=== PATIENT | female | born 1955 | race Caucasian/White ===

== ENCOUNTER 2021-03-04 19:58 | Inpatient (IN) ==
[2021-03-04] MEDS ORDERED: LEVALBUTEROL 1.25MG/0.5ML NEB NEB STA ×2 (20:37→23:22)
[2021-03-04] MEDS ORDERED: methylPREDNISolone 125 MG/2 ML VIAL IV STA (20:37)
[2021-03-04] MEDS: SODIUM CHLORIDE 0.9% 1000ML 1,000 ML IV SCH (21:22)
[2021-03-04 21:43] LABS: Basophils # (auto) 0.03 K/uL (0-0.2); Basophils % (auto) 0.4 %; Hematocrit (blood only) 44.4 % (37-47); Hemoglobin 15.1 g/dL (12.0-16.0); Immature Granulocytes # (auto) 0.02 K/uL (0.00-0.02); Immature Granulocytes % (auto) 0.3 %; Lymphocytes # (auto) 1.49 K/uL (1.2-3.4); Lymphocytes % (auto) 21.4 %; Mean Corpuscular Hemoglobin 30.9 pg (25-34); Mean Corpuscular Volume 90.8 fL (80-100); Monocytes # (auto) 0.44 K/uL (0.11-0.59); Monocytes % (auto) 6.3 %; Neutrophils # (auto) 4.98 K/uL (1.4-6.5); Neutrophils % (auto) 71.6 %; Platelet Count 457 K/uL (130-400); RDW Coefficient of Variation 13.5 % (11.5-14.5); RDW Standard Deviation 44.3 fL (36.4-46.3); Red Blood Count 4.89 M/uL (4.2-5.4); White Blood Count 6.96 K/uL (4.8-10.8)
[2021-03-04 21:56] LABS: Partial Thromboplastin Ratio 0.8; Partial Thromboplastin Time 22.3 Seconds (21.0-31.0)
[2021-03-04 22:02] LABS: Alanine Aminotransferase 27 U/L (12-78); Albumin Level 2.7 gm/dl (3.4-5.0); Aspartate Aminotransferase 50 U/L (15-37); BUN Creatinine Ratio 14.6 (10-20); Blood Urea Nitrogen 9 mg/dl (7-18); Calcium 8.6 mg/dl (8.5-10.1); Carbon Dioxide 29 mmol/L (21-32); Chloride 101 mmol/L (98-107); Creatinine Clr Calc Pharmacy 91.8 ml/min; Est GFR (African American) 110.3 ml/min; Est GFR (Non-African American) 95.1 ml/min; Glucose 221 mg/dl (70-99); Magnesium 2.4 mg/dl (1.8-2.4); Potassium 3.2 mmol/L (3.5-5.1); Sodium 139 mmol/L (136-145)
[2021-03-04 22:06] LABS: Albumin Globulin Ratio 0.6 (0.9-2); Alkaline Phosphatase 136 U/L (45-117); Bilirubin,Total 1.3 mg/dl (0.2-1); Globulin 4.6 gm/dl (2.5-4.0); Total Protein 7.3 gm/dl (6.4-8.2); Troponin I < 0.015 ng/ml (0-0.045)
--- NOTE | 2021-03-04 22:14 | Emergency Department Note ---
History of Present Illness General Chief complaint: Illness Stated complaint: SOB,N/V Time Seen by Provider: 03/04/21 20:28 History of Present Illness Provider complaint: Shortness of breath nausea vomiting diarrhea cough fever Onset (ago): week(s) 1 Associated symptoms: + cough, + fever/chills, + headaches, + malaise, + nausea/vomiting and + shortness of breath 65-year-old female with history of asthma and COPD presents to the emergency department with cough, shortness of breath, nausea, vomiting, diarrhea, and fever patient states that symptoms been going on for 1 week. Patient states she is not vaccinated against Covid. Patient states she went to an outside emergency department and was told that she did not have Covid and that her lungs were clear. Home Medications Medication Instructions Recorded Confirmed Type fluticasone propionate 50 1 spray INTRANASAL UD 03/04/21 03/04/21 History mcg/actuation nasal spray,suspension Allergies Allergy/AdvReac Type Severity Reaction Status Date / Time No Known Allergies Allergy Unknown Verified 12/05/02 15:09 albuterol AdvReac Mild MAKES HER Verified 07/25/09 03:32 HEART RACE Past Med/Surg History Medical History (Updated 03/04/21 @ 23:27 by Mac Shore) Asthma CHF (congestive heart failure) Diabetes GERD (gastroesophageal reflux disease) No pertinent family history Surgical History (Updated 03/04/21 @ 22:08 by Mac Shore) No pertinent past surgical history Social History Smoking Status: Never smoker Preferred Language: Kazakh Feels Safe at Home: Yes Review of Systems A total of 10 systems reviewed and were otherwise negative Physical Exam Vital Signs Vital Signs - 24 hr 03/04/21 20:19 03/04/21 20:32 03/04/21 20:39 Temperature 36.6 C Temperature Source Temporal Artery Scan Pulse Rate 93 H 91 H Pulse Rate [Right Apical] Pulse Rate from SpO2 Sensor Pulse Rhythm Respiratory Rate 24 18 Respiratory Effort / Characteristics Non-Labored Spontaneous Blood Pressure 154/82 H 167/102 H Blood Pressure Mean 106 123 Blood Pressure Position Sitting Pulse Oximetry 83 L 94 95 Oxygen Delivery Method Room Air Nasal Cannula Nasal Cannula Oxygen Flow Rate 5 3 Sepsis Recent Fever Within 48 Hours Yes Sepsis New/Unexplained Change in Mental Status N/A Sepsis Action Taken by Nursing No Action Required 03/04/21 20:40 03/04/21 21:00 03/04/21 21:07 Temperature Temperature Source Pulse Rate 84 82 Pulse Rate [Right Apical] Pulse Rate from SpO2 Sensor 83 Pulse Rhythm Regular Respiratory Rate 22 22 22 Respiratory Effort / Characteristics Non-Labored Spontaneous Blood Pressure 161/104 H Blood Pressure Mean 123 Blood Pressure Position Pulse Oximetry 95 96 97 Oxygen Delivery Method Nasal Cannula Nasal Cannula Nasal Cannula Oxygen Flow Rate 3 3 2 Sepsis Recent Fever Within 48 Hours Sepsis New/Unexplained Change in Mental Status Sepsis Action Taken by Nursing 03/04/21 21:30 03/04/21 21:47 03/04/21 22:00 Temperature Temperature Source Pulse Rate 82 94 H Pulse Rate [Right Apical] 78 Pulse Rate from SpO2 Sensor 82 94 H Pulse Rhythm Respiratory Rate 16 18 22 Respiratory Effort / Characteristics Non-Labored Spontaneous Spontaneous Non-Labored Spontaneous Blood Pressure 151/101 H 144/109 H Blood Pressure Mean 117 120 Blood Pressure Position Pulse Oximetry 96 96 92 Oxygen Delivery Method Nasal Cannula Nasal Cannula Nasal Cannula Oxygen Flow Rate 2 2 2 Sepsis Recent Fever Within 48 Hours Sepsis New/Unexplained Change in Mental Status Sepsis Action Taken by Nursing 03/04/21 22:30 03/04/21 22:31 Temperature Temperature Source Pulse Rate 96 H Pulse Rate [Right Apical] Pulse Rate from SpO2 Sensor 96 H Pulse Rhythm Respiratory Rate 22 17 Respiratory Effort / Characteristics Non-Labored Spontaneous Blood Pressure 179/92 H Blood Pressure Mean 121 Blood Pressure Position Pulse Oximetry 95 94 Oxygen Delivery Method Nasal Cannula Nasal Cannula Oxygen Flow Rate 2 2 Sepsis Recent Fever Within 48 Hours Sepsis New/Unexplained Change in Mental Status Sepsis Action Taken by Nursing Physical Exam GENERAL: She is oriented to person, place, and time. She appears well-developed and well-nourished. She does not appear distressed. HENT: Exam performed. -Head: Normocephalic and atraumatic. -Right Ear: External ear normal. No mastoid tenderness. -Left Ear: External ear normal. No mastoid tenderness. -Mouth/Throat: The oropharynx is clear and moist. No trismus in the jaw. No dental abscesses or uvula swelling. No oropharyngeal exudate or tonsillar abscesses. EYES: Conjunctivae and EOM are normal. Pupils are equal, round, and reactive to light. Right eye exhibits no discharge. Left eye exhibits no discharge. No scleral icterus. NECK: Normal range of motion. Neck supple. No JVD present. No spinous process tenderness present. No carotid bruit present. No rigidity. No tracheal deviation and normal range of motion present. No Brudzinski's sign and no Kernig's sign noted. CV: Normal rate, regular rhythm, normal heart sounds and intact distal pulses. There is no peripheral edema. Palpable radial pulses bue. PULM/CHEST: Rhonchi and wheezing bilaterally. -Chest Wall: She exhibits no tenderness. ABD: The abdomen is soft. Bowel sounds are normal. She has no distension. No mass is present. There is no tenderness. There is no rebound, no guarding, no Muller's sign and no tenderness at McBurney's point. Rovsig negative MUSC/SKEL: Normal range of motion. There is no peripheral edema, tenderness or deformity. LYMPH: No cervical adenopathy. NEURO: She is alert and oriented to person, place, and time. She has normal strength. No cranial nerve deficit or sensory deficit. Coordination and gait normal. GCS eye subscore is 4. GCS verbal subscore is 5. GCS motor subscore is 6. Cerebellar tests wnl. SKIN: Skin is warm and dry. She is not diaphoretic. PSYCH: She has a normal mood and affect. Behavior is normal. Judgment and thought content normal. Course Course 2027: The patient was evaluated in room A9. A complete history and physical exam was performed Cardiac monitoring: An order was placed for continuous cardiac monitoring. The monitor shows a rate of 80 with sinus rhythm Patient found to be hypoxic on room air. Supplemental oxygen via nasal cannula. Patient's oxygen saturation improved with supplemental oxygen via nasal cannula. Solu-Medrol 125 mg her for the patient giving her hypoxia and wheezing. 2325: Vital signs stable on supplemental oxygen via nasal cannula. Labs show a potassium of 3.2, will be replaced in the emergency department. Patient is Covid positive. CTA of the chest shows Covid pneumonia but no PE. Given the pa fortunato's hypoxia and Covid pneumonia the patient will be [facility] Hospitalist team Dr. Lind notified. Administered Medications Sodium Chloride (Nss 1000ml) 1,000 mls @ 125 mls/hr IV .Q8H NELL Stop: 04/03/21 20:44 Last Admin: 03/04/21 21:22 Dose: 125 mls/hr Documented by: [id number] Discontinued Medications Ioversol (Optiray 320 125ml) 117 ml IV ONCE ONE Stop: 03/04/21 22:32 Last Admin: 03/04/21 22:31 Dose: 117 ml Documented by: [id number] Levalbuterol HCl (Levalbuterol 1.25mg/0.5ml Neb) 1.25 mg NEB NOW STA Stop: 03/04/21 20:38 Last Admin: 03/04/21 21:43 Dose: 1.25 mg Documented by: [id number] Methylprednisolone (Methylprednisolone 125 Mg/2 Ml Vial) 125 mg IV NOW STA Stop: 03/04/21 20:38 Last Admin: 03/04/21 21:22 Dose: 125 mg Documented by: [id number] Critical Care Time Critical Care Time: Yes Total Critical Care Time: 56 I have personally spent greater than 56 minutes of critical care time in the direct management of this patient. This includes bedside care, interpretation of diagnostic studies, and testing, discussion with consultants, patient, and family members, and other required patient management activities. This 56 minutes is in excess of all separately billable procedures. Medical Decision Making Laboratory Data Result diagrams: 03/04/21 21:17 03/04/21 21:17 Lab Results 03/04/21 03/04/21 03/04/21 Range/Units 20:47 20:47 21:17 WBC 6.96 (4.8-10.8) K/uL RBC 4.89 (4.2-5.4) M/uL Hgb 15.1 (12.0-16.0) g/dL Hct 44.4 (37-47) % MCV 90.8 (80-100) fL MCH 30.9 (25-34) pg MCHC 34.0 (32-36) g/dL RDW Std Deviation 44.3 (36.4-46.3) fL RDW Coeff of Ralf 13.5 (11.5-14.5) % Plt Count 457 H (130-400) K/uL MPV 10.0 (7.4-10.4) fL Immature Gran % (Auto) 0.3 % Neut % (Auto) 71.6 % Lymph % (Auto) 21.4 % [place] % (Auto) 6.3 % Eos % (Auto) 0.0 % Baso % (Auto) 0.4 % Neut # (Auto) 4.98 (1.4-6.5) K/uL Lymph # (Auto) 1.49 (1.2-3.4) K/uL [place] # (Auto) 0.44 (0.11-0.59) K/uL Eos # (Auto) 0.00 (0-0.5) K/uL Baso # (Auto) 0.03 (0-0.2) K/uL Immature Gran # (Auto) 0.02 (0.00-0.02) K/uL PT (9.0-12.0) Seconds INR (0.9-1.1) APTT (21.0-31.0) Seconds PTT Ratio VBG pH (7.36-7.41) VBG pCO2 (38-50) mmHg VBG pO2 mmHg VBG HCO3 mmol/L VBG O2 Saturation % VBG Base Excess mEq/L Barometric Pressure mm/Hg Sodium (136-145) mmol/L Potassium (3.5-5.1) mmol/L Chloride (98-107) mmol/L Carbon Dioxide (21-32) mmol/L Anion Gap (3-11) BUN (7-18) mg/dl Creatinine (0.6-1.2) mg/dl Est Cr Clr Drug Dosing ml/min Est GFR ( Amer) ml/min Est GFR (Non-Af Amer) ml/min BUN/Creatinine Ratio (10-20) Glucose (70-99) mg/dl Lactate (0.4-2.0) mmol/L Calcium (8.5-10.1) mg/dl Magnesium (1.8-2.4) mg/dl Total Bilirubin (0.2-1) mg/dl AST (15-37) U/L ALT (12-78) U/L Alkaline Phosphatase (45-117) U/L Troponin I (0-0.045) ng/ml Total Protein (6.4-8.2) gm/dl Albumin (3.4-5.0) gm/dl Globulin (2.5-4.0) gm/dl Albumin/Globulin Ratio (0.9-2) Procalcitonin (0-0.5) ng/ml COVID-19 Eval Order Covid19 at [facility] SARS-CoV-2 (PCR) POSITIVE A* (Negative) 03/04/21 03/04/21 03/04/21 Range/Units 21:17 21:17 21:17 WBC (4.8-10.8) K/uL RBC (4.2-5.4) M/uL Hgb (12.0-16.0) g/dL Hct (37-47) % MCV (80-100) fL MCH (25-34) pg MCHC (32-36) g/dL RDW Std Deviation (36.4-46.3) fL RDW Coeff of Ralf (11.5-14.5) % Plt Count (130-400) K/uL MPV (7.4-10.4) fL Immature Gran % (Auto) % Neut % (Auto) % Lymph % (Auto) % [place] % (Auto) % Eos % (Auto) % Baso % (Auto) % Neut # (Auto) (1.4-6.5) K/uL Lymph # (Auto) (1.2-3.4) K/uL [place] # (Auto) (0.11-0.59) K/uL Eos # (Auto) (0-0.5) K/uL Baso # (Auto) (0-0.2) K/uL Immature Gran # (Auto) (0.00-0.02) K/uL PT 10.0 (9.0-12.0) Seconds INR 1.0 (0.9-1.1) APTT 22.3 (21.0-31.0) Seconds PTT Ratio 0.8 VBG pH (7.36-7.41) VBG pCO2 (38-50) mmHg VBG pO2 mmHg VBG HCO3 mmol/L VBG O2 Saturation % VBG Base Excess mEq/L Barometric Pressure mm/Hg Sodium 139 (136-145) mmol/L Potassium 3.2 L (3.5-5.1) mmol/L Chloride 101 (98-107) mmol/L Carbon Dioxide 29 (21-32) mmol/L Anion Gap 9.0 (3-11) BUN 9 (7-18) mg/dl Creatinine 0.61 (0.6-1.2) mg/dl Est Cr Clr Drug Dosing 91.8 ml/min Est GFR ( Amer) 110.3 ml/min Est GFR (Non-Af Amer) 95.1 ml/min BUN/Creatinine Ratio 14.6 (10-20) Glucose 221 H (70-99) mg/dl Lactate 1.4 (0.4-2.0) mmol/L Calcium 8.6 (8.5-10.1) mg/dl Magnesium 2.4 (1.8-2.4) mg/dl Total Bilirubin 1.3 H (0.2-1) mg/dl AST 50 H (15-37) U/L ALT 27 (12-78) U/L Alkaline Phosphatase 136 H (45-117) U/L Troponin I < 0.015 (0-0.045) ng/ml Total Protein 7.3 (6.4-8.2) gm/dl Albumin 2.7 L (3.4-5.0) gm/dl Globulin 4.6 H (2.5-4.0) gm/dl Albumin/Globulin Ratio 0.6 L (0.9-2) Procalcitonin (0-0.5) ng/ml COVID-19 Eval Order SARS-CoV-2 (PCR) (Negative) 03/04/21 03/04/21 Range/Units 21:17 23:03 WBC (4.8-10.8) K/uL RBC (4.2-5.4) M/uL Hgb (12.0-16.0) g/dL Hct (37-47) % MCV (80-100) fL MCH (25-34) pg MCHC (32-36) g/dL RDW Std Deviation (36.4-46.3) fL RDW Coeff of Ralf (11.5-14.5) % Plt Count (130-400) K/uL MPV (7.4-10.4) fL Immature Gran % (Auto) % Neut % (Auto) % Lymph % (Auto) % [place] % (Auto) % Eos % (Auto) % Baso % (Auto) % Neut # (Auto) (1.4-6.5) K/uL Lymph # (Auto) (1.2-3.4) K/uL [place] # (Auto) (0.11-0.59) K/uL Eos # (Auto) (0-0.5) K/uL Baso # (Auto) (0-0.2) K/uL Immature Gran # (Auto) (0.00-0.02) K/uL PT (9.0-12.0) Seconds INR (0.9-1.1) APTT (21.0-31.0) Seconds PTT Ratio VBG pH 7.36 (7.36-7.41) VBG pCO2 45 (38-50) mmHg VBG pO2 35 mmHg VBG HCO3 25 mmol/L VBG O2 Saturation 69.6 % VBG Base Excess -0.9 mEq/L Barometric Pressure 734.2 mm/Hg Sodium (136-145) mmol/L Potassium (3.5-5.1) mmol/L Chloride (98-107) mmol/L Carbon Dioxide (21-32) mmol/L Anion Gap (3-11) BUN (7-18) mg/dl Creatinine (0.6-1.2) mg/dl Est Cr Clr Drug Dosing ml/min Est GFR ( Amer) ml/min Est GFR (Non-Af Amer) ml/min BUN/Creatinine Ratio (10-20) Glucose (70-99) mg/dl Lactate (0.4-2.0) mmol/L Calcium (8.5-10.1) mg/dl Magnesium (1.8-2.4) mg/dl Total Bilirubin (0.2-1) mg/dl AST (15-37) U/L ALT (12-78) U/L Alkaline Phosphatase (45-117) U/L Troponin I (0-0.045) ng/ml Total Protein (6.4-8.2) gm/dl Albumin (3.4-5.0) gm/dl Globulin (2.5-4.0) gm/dl Albumin/Globulin Ratio (0.9-2) Procalcitonin 0.11 (0-0.5) ng/ml COVID-19 Eval Order SARS-CoV-2 (PCR) (Negative) Imaging Data Radiologist's Impression: Preliminary Findings Only See Final Report For Complete Findings CTA CHEST: No pulmonary embolus. No aortic aneurysm or dissection. Bilateral airspace opacities are most consistent with atypical infection. Heart size is within normal limits. No pathologically enlarged lymph nodes. No fracture. Incidentally noted fatty infiltration of the liver. Radiologist: Malika Quarles MD Study ready at 22:57 and initial results transmitted at 23:19 ECG Data Indication: + SOB/dyspnea Rate (beats per minute): 83 Rhythm: + normal sinus ECG Intervals/blocks: + Normal QRS, + Normal SD and + Normal QT-c ECG ST segments: + Normal ST segments [facility] Narrative 2027: The patient was evaluated in room A9. A complete history and physical exam was performed Cardiac monitoring: An order was placed for continuous cardiac monitoring. The monitor shows a rate of 80 with sinus rhythm Patient found to be hypoxic on room air. Supplemental oxygen via nasal cannula. Patient's oxygen saturation improved with supplemental oxygen via nasal cannula. Solu-Medrol 125 mg her for the patient giving her hypoxia and wheezing. 2324: Vital signs stable on supplemental oxygen via nasal cannula. Labs show a potassium of 3.2, will be replaced in the emergency department. Patient is Covid positive. CTA of the chest shows Covid pneumonia but no PE. Given the patient's hypoxia and Covid pneumonia the patient will be admitted to the [facility] hospitalist team Dr. Lind notified. Impression & Plan Pneumonia due to 2019 novel coronavirus Discharge Plan Visit Data Chief Complaint: Illness Stated Complaint: SOB,N/V ED Provider: Mac Shore Discharge Problem: Pneumonia due to 2019 novel coronavirus Patient Disposition: Admitted As Inpatient Forms Stand Alone Forms: My [facility] Prescriptions Prescriptions: No Action fluticasone propionate 50 mcg/actuation spray,suspension 1 spray INTRANASAL UD RF: 0 Referrals Referrals: Demetrio Bravo [Primary Care Provider] -
[2021-03-04] MEDS ORDERED: OPTIRAY 320 125ml IV ONE (22:31)
[2021-03-04 23:15] LABS: Base Excess VBG -0.9 mEq/L; Oxygen Saturation VBG 69.6 %; pH VBG 7.36 (7.36-7.41)
[2021-03-04] MEDS ORDERED: POTASSIUM CHLORIDE 10 MEQ TABCR PO STA (23:26)
[2021-03-05 00:33] LABS: Appearance Urine Turbid (Clear); Bacteria Urine Automated Negative (Negative); Blood Urine Negative (Negative); Color Urine Dark Yellow; Epithelial Cell Urine Auto >30 /lpf (0-5); Glucose Urine UA 3+ (Negative); Ketones Urine 1+ (Negative); Leukocyte Esterase Urine Negative (Negative); Nitrite Urine Negative (Negative); Protein Urine 2+ (Negative); RBC Urine Automated 0-4 /hpf (0-4); Specific Gravity Urine > 1.045 (1.000-1.030); Urobilinogen Urine Negative (Negative); pH Urine 6.5 (4.5-7.5)
[2021-03-05 00:38] LABS: Bilirubin Urine 1+ (Negative)
[2021-03-05 01:13] LABS: Cast Urine Automated 0 /lpf (0-5)
[2021-03-05] MEDS ORDERED: KETOROLAC TROMETHAMINE 15 MG/ML VIAL IV ONE (02:47)
[2021-03-05] MEDS ORDERED: REMDESIVIR 200 MG in SODIUM CHLORIDE 0.9% 210 ML IV STA (03:30)
[2021-03-05] MEDS: SODIUM CHLORIDE 0.9% 1000ML 1,000 ML IV SCH (04:57)
[2021-03-05] MEDS ORDERED: NITROGLYCERIN SL 0.4 MG/TAB TAB SL PRN (07:27)
[2021-03-05] MEDS ORDERED: ONDANSETRON INJ 2 MG/ML 2 ML VIAL IV PRN (07:27)
[2021-03-05] MEDS ORDERED: SODIUM CHLORIDE 0.9% 1000ML 1,000 ML IV SCH (07:27)
[2021-03-05] MEDS ORDERED: XOPENEX/ATROVENT 1.25mg/0.5MG NEB COMBO NEB PRN (07:27)
--- NOTE | 2021-03-05 07:57 | CT Scan Report ---
CT angio chest PE protocol CT DOSE: 515.08 mGycm HISTORY: 65 years-old Female with ro PE. Acute chest pain with shortness of breath. TECHNIQUE: Multiple CTA images of the chest were obtained after the intravenous administration of 117 ml Optiray. Coronal and sagittal MIPS were obtained from the axial data set and were submitted for review. All measurements were obtained according to NASCET criteria. A dose lowering technique was u tilized adhering to the principles of ALARA. COMPARISON: Chest radiograph 03/04/2021, chest CT 02/28/2008 FINDINGS: CTA: The heart is mildly enlarged. Mediastinal lipomatosis. No pericardial effusion. Atherosclerosis of th e aorta without aneurysm or dissection. Patency of the imaged great vessels. Descending thoracic aort ic tortuosity. No pulmonary emboli identified. Right IJ [id number] catheter distal tip terminates within the mid SVC. CT CHEST: Unremarkable thyroid. No pathologically enlarged lymph nodes. No pneumothorax or pleural effusion. Bi lateral multilobar and multi segmental distribution of subpleural predominant groundglass densities w ith mild intermixed linear consolidation. The previously noted solid nodule of the left lower lobe se en on the 2007 study is not identified and may be obscured by consolidation. The central airways are patent. No pneumoperitoneum. Tiny hiatal hernia. Hepatic steatosis. Unremarkable soft tissues. There is no ac michael fracture. Degenerative changes of the shoulders and spine. A spinal stimulator device is present with partially imaged lead overlying the central canal of the lower thoracic spine posteriorly. IMPRESSION: 1. Cardiomegaly without pulmonary emboli. 2. Bilateral subpleural predominant groundglass densities are suggestive of viral pneumonia. 3. Hepatic steatosis. 4. Tiny hiatal hernia. ACT 112: Negative or not required by law. The above report was generated using voice recognition software. It may contain grammatical, syntax o r spelling errors. Electronically signed by: Jessee Llamas M.D. 03/05/2021 7:56 AM
--- NOTE | 2021-03-05 08:19 | XRay Report ---
XR chest 1V portable INDICATION: MN ^SEPSIS . TECHNIQUE: Single frontal radiograph of the chest was obtained. Comparison: Comparison is made to chest one view 10/03/2010 FINDINGS: Lines and tubes are stable. Interval development of bilateral lower lobe predominant opacities. Cardi ac mediastinal silhouette is stable. Possible small bilateral pleural effusions. No evidence of pneum othorax. IMPRESSION: Bilateral airspace opacities which may represent atelectasis, pneumonia, and/or aspiration. Possible bilateral pleural effusions. ACT 112: Negative or not required by law. Electronically signed by: Luigi Slaughter M.D. 03/05/2021 8:17 AM
[2021-03-05] MEDS ORDERED: GLUCOSE 40% GEL 15 GM TUBE PO PRN (08:45)
[2021-03-05] MEDS ORDERED: GLUCAGON FOR INJ 1 MG VIAL IM PRN (08:45)
[2021-03-05] MEDS ORDERED: GLUCOSE 10 TABS/TUBE PO PRN (08:45)
[2021-03-05] MEDS ORDERED: DEXTROSE 50% 50 ML SYRINGE IV PRN (08:45)
[2021-03-05] MEDS ORDERED: BUDESONIDE 90 MCG INH INH SCH (09:00)
--- NOTE | 2021-03-05 09:38 | History and Physical Report ---
DATE OF ADMISSION: 03/05/2021. CHIEF COMPLAINT: Shortness of breath. HISTORY OF PRESENT ILLNESS: This is a 65-year-old female with past medical history significant for diabetes mellitus, presents with cough and shortness of breath. The patient says she is not feeling well since last 2 weeks. Since 2 weeks ago, she was feeling weakness and tired and about 1 week ago started having cough, on and off fevers, body aches, poor appetite and since last couple of days, she has been short of breath, which prompted her to come to the ER and found to have COVID positive and multifocal pneumonia. She was saturating 88% on room air, with oxygen she is saturating okay, having lot of cough, having severe headaches. No blurred visions, no earache, no runny nose, no sore throat, no difficulty swallowing. Denies any chest pain. Intially, had a lot of diarrhea that is getting better. Abdominal pain is also getting better. No hematuria, no swelling in the legs. ALLERGIES: No known drug allergies. PAST MEDICAL HISTORY: As mentioned above. PAST SURGICAL HISTORY: Colonoscopy, upper endoscopy with biopsy. MEDICATIONS: On insulin. FAMILY HISTORY: No family history on file. SOCIAL HISTORY: , quit smoking in 2003. No alcohol. REVIEW OF SYSTEMS: As per HPI. Rest of review of systems is negative. PHYSICAL EXAMINATION: GENERAL: The patient is of moderate build, not in acute distress. VITAL SIGNS: Temperature 36.6, pulse 63, respiratory rate 18, blood pressure 164/93, oxygen 94% on 3 liters. HEENT: Pupils equal, round and reactive to light. Oral mucosa moist. NECK: No JVD or neck masses. CARDIOVASCULAR: S1 and S2 heard. Regular rate and rhythm. No murmur, no gallop. RESPIRATORY SYSTEM: Normal AP diameter. No accessory muscle use. Mild bibasilar crackles. No wheezing. ABDOMEN: Soft, bowel sounds present, nontender, no distention. CENTRAL NERVOUS SYSTEM: Cranial nerves II-XII grossly intact, nonfocal. EXTREMITIES: No edema, no erythema. LABORATORY DATA: WBC 6.9, hemoglobin 15.1, hematocrit 44.4, platelets 457. PT 10, INR 1, APTT 22.3. Venous blood gas, pH of 7.36, pCO2 of 45, pO2 of 35, bicarbonate 25. Sodium 139, potassium 3.2, chloride 101, bicarbonate 29, BUN 9, creatinine 0.6, serum glucose 221. Lactate 1.4, calcium 8.6, magnesium 2.4, total bilirubin 1.3, AST 15, ALT 27, alkaline phosphatase 136. Procalcitonin 0.1. Urinalysis, +3 glucose. SARS-CoV-2 PCR positive. IMAGING DATA: Chest x-ray, bilateral opacities possible viral pneumonia. CT of the chest, no PE, bilateral subpleural predominant ground glass opacities suggestive of viral pneumonia. EKG: Normal sinus rhythm, rate of 83, nonspecific T-wave abnormalities. No acute ST changes seen. ASSESSMENT AND PLAN: 1. This 65-year-old female presents with COVID pneumonia, hypoxia requiring oxygen, meets criteria for remdesivir, steroids. Follow the remdesvir labs. Closely monitor med tele. 2. Diabetes. Continue insulin sliding scale and lantus. Monitor blood sugar and adjust insulin regimen 3. Deep venous thrombosis prophylaxis. Lovenox. DISPOSITION: Admit to med tele. Expect to discharge home and follow with family doctor. Level 1 full code. Job ID: [id number] [facility]
[2021-03-05 09:40] LABS: Basophils # (auto) 0.02 K/uL (0-0.2); Basophils % (auto) 0.5 %; Hematocrit (blood only) 42.3 % (37-47); Hemoglobin 14.3 g/dL (12.0-16.0); Immature Granulocytes # (auto) 0.02 K/uL (0.00-0.02); Immature Granulocytes % (auto) 0.5 %; Lymphocytes # (auto) 0.98 K/uL (1.2-3.4); Lymphocytes % (auto) 23.5 %; Mean Corpuscular Hemoglobin 30.6 pg (25-34); Mean Corpuscular Hgb Conc 33.8 g/dL (32-36); Mean Corpuscular Volume 90.6 fL (80-100); Mean Platelet Volume 9.6 fL (7.4-10.4); Monocytes # (auto) 0.11 K/uL (0.11-0.59); Monocytes % (auto) 2.6 %; Neutrophils # (auto) 3.04 K/uL (1.4-6.5); Neutrophils % (auto) 72.9 %; Platelet Count 427 K/uL (130-400); RDW Coefficient of Variation 13.5 % (11.5-14.5); RDW Standard Deviation 44.3 fL (36.4-46.3); Red Blood Count 4.67 M/uL (4.2-5.4); White Blood Count 4.17 K/uL (4.8-10.8)
[2021-03-05 10:00] LABS: BUN Creatinine Ratio 12.5 (10-20); Calcium 8.1 mg/dl (8.5-10.1); Creatinine Clr Calc Pharmacy 93.3 ml/min; Est GFR (African American) 110.9 ml/min; Est GFR (Non-African American) 95.7 ml/min; Magnesium 2.3 mg/dl (1.8-2.4); Potassium 3.6 mmol/L (3.5-5.1)
[2021-03-05 12:13] LABS: Estimated Average Glucose 309 mg/dl; Hemoglobin A1C 12.4 % (4.5-5.6)
[2021-03-05] MEDS: INSULIN GLARGINE SOLOSTAR 100 UNITS/ML 3 ML PEN SC SCH (12:30)
[2021-03-05] MEDS: INSULIN ASPART 100 UNITS/ML 3 ML PEN SC SCH ×4 (12:45→21:40)
[2021-03-05] MEDS: FLUTICASONE FUROATE 100MCG 14 PUFFS/INHALER INH SCH (12:48)
[2021-03-05] MEDS: FLUTICASONE PROPIONATE NA SPR 16 GM BTL SCH (12:49)
[2021-03-05] MEDS: ENOXAPARIN INJ 40 MG/0.4 ML SYR SQ SCH ×2 (12:49→22:55)
[2021-03-05] MEDS: IPRATROPIUM BROMIDE NEB SOLN 0.02% 2.5 ML VIAL NEB PRN (14:29)
[2021-03-05] MEDS: LEVALBUTEROL 1.25MG/0.5ML NEB NEB PRN (14:29)
[2021-03-05] MEDS ORDERED: ACETAMINOPHEN 325 MG TAB PO PRN (15:13)
[2021-03-05] MEDS ORDERED: BENZONATATE 100 MG CAPSULE PO ONE (15:15)
[2021-03-05] MEDS: ALBUTEROL HFA 8 GM INHALER INH PRN ×2 (20:25→23:17)
[2021-03-05] MEDS: ACETAMINOPHEN 325 MG TAB PO PRN (22:07)
[2021-03-05] MEDS: BENZONATATE 100 MG CAPSULE PO SCH (22:07)
[2021-03-05] MEDS: guaiFENesin 600 MG TABCR PO SCH (22:56)
[2021-03-05] MEDS: dexAMETHasone 6 MG in SYRINGE 0 ML IV SCH (22:56)
--- NOTE | 2021-03-06 06:05 | Electrocardiogram Report ---
Test Reason : Blood Pressure : / mmHG Vent. Rate : 083 BPM Atrial Rate : 083 BPM P-R Int : 138 ms QRS Dur : 080 ms QT Int : 380 ms P-R-T Axes : 030 -11 -03 degrees QTc Int : 446 ms Normal sinus rhythm Nonspecific T wave abnormality When compared with ECG of 14-OCT-2010 11:28, Nonspecific T wave abnormality now evident in Anterior leads Confirmed by Osei Rasmussen ([id number]) on 03/06/2021 6:05:33 AM Referred By: REFERRED SELF Confirmed By:Osei Rasmussen
[2021-03-06 07:51] LABS: Albumin Level 2.3 gm/dl (3.4-5.0); Est GFR (African American) 112.7 ml/min; Est GFR (Non-African American) 97.3 ml/min
[2021-03-06 07:54] LABS: Bilirubin Direct 0.2 mg/dl (0-0.2); Bilirubin,Total 0.9 mg/dl (0.2-1); Total Protein 6.5 gm/dl (6.4-8.2)
[2021-03-06] MEDS: FLUTICASONE FUROATE 100MCG 14 PUFFS/INHALER INH SCH (08:39)
[2021-03-06] MEDS: dexAMETHasone 6 MG in SYRINGE 0 ML IV SCH (08:40)
[2021-03-06] MEDS: guaiFENesin 600 MG TABCR PO SCH (08:40)
[2021-03-06] MEDS: INSULIN ASPART 100 UNITS/ML 3 ML PEN SC SCH ×4 (09:19→21:07)
[2021-03-06] MEDS: FLUTICASONE PROPIONATE NA SPR 16 GM BTL SCH (09:20)
[2021-03-06] MEDS: ENOXAPARIN INJ 40 MG/0.4 ML SYR SQ SCH ×2 (09:20→21:08)
[2021-03-06] MEDS: BENZONATATE 100 MG CAPSULE PO SCH ×3 (09:21→21:09)
[2021-03-06] MEDS: INSULIN GLARGINE SOLOSTAR 100 UNITS/ML 3 ML PEN SC SCH ×2 (09:40→23:10)
[2021-03-06] MEDS: SODIUM CHLORIDE 0.9% 10ML FLUSH IV SCH (11:58)
[2021-03-06] MEDS: REMDESIVIR 100 MG in SODIUM CHLORIDE 0.9% 230 ML IV SCH (11:58)
[2021-03-06] MEDS ORDERED: FUROSEMIDE 40 MG in SYRINGE 0 ML IV ONE (12:00)
[2021-03-06] MEDS: guaiFENesin/DEXTROM SYRUP 200MG/20MG 10ML UDC PO PRN ×3 (13:23→23:42)
--- NOTE | 2021-03-06 15:20 | Hospitalist Progress Note ---
Date of Service March 06, 2021 Assessment & Plan (1) Pneumonia due to 2019 novel coronavirus: Plan: 1 week history of cough body aches and shortness of breath Noted to have COVID-19 virus infection with pneumonia on 03/05/2021 Started on intravenous dexamethasone and remdesivir CRP is mildly elevated at 2.72 and sitting and is 1.1 Has been requiring about 4 to 5 L of nasal cannula oxygen to maintain saturation She was strongly advised to use flutter valve and spirometer Prone position as tolerated We will keep her on dry side and will administer 40 of Lasix intravenously today Monitor electrolytes and inflammatory markers (2) Asthma: Plan: Likely contributing the shortness of breath Continue home medications (3) Diabetes: Plan: Has been on SSI Lantus 10 units subcu daily (4) CHF (congestive heart failure): Plan: No signs of fluid overload (5) GERD (gastroesophageal reflux disease): Plan: Continue PPI DVT prophylaxis Subcu Lovenox CODE STATUS Full Admission and Anticipated Discharge Date Admission Date: March 05, 2021 Subjective 03/06/2021 The patient was seen and examined in medical telemetry unit She has been complaining of shortness of breath, cough, weakness and diarrhea She does not feel any better since admission Denies any fever and/or chills Review of Systems Review of Systems: All systems reviewed and are unremarkable except as noted below Respiratory: Shortness of breath at rest with cough Physical Exam Physical Exam: Lying in bed with moderate shortness of breath and cough at rest Constitutional: well developed, well nourished, + ill appearing and + obese Eyes: PERRL, conjunctivae normal, anicteric sclerae ENMT: external ear and nose normal, oropharynx normal Neck: trachea midline, no thyromegaly Respiratory: + respiratory distress (Moderate shortness of breath at rest), + uses accessory muscles and + cough Auscultation: + diminished lung sounds, + crackles (At the bases) and + wheezes Cardiovascular: Rate/Rhythm: regular rate; not tachycardic Heart Sounds: normal S1 and normal S2; no murmur Extremities: + edema (Trace to 1+ edema bilaterally) Gastrointestinal (Abdomen): Inspection/Auscultation: normal bowel sounds; abdomen not distended Percussion/Palpation: abdomen soft; abdomen nontender Musculoskeletal: No acute arthritis in any joint Neurologic: Alert, awake and oriented x3. No focal sensory and motor deficit appreciated Psychiatric: A+Ox3, euthymic affect Lymphatic: no cervical or axillary lymphadenopathy Results & Data Results & Data ([facility]) Vital Signs (Past 12 Hours) Vital Signs Temp Pulse Pulse Resp BP Pulse Ox 03/06/21 11:53 36.5 C 80 20 135/79 96 03/06/21 08:06 36.5 C 67 20 144/82 H 91 03/06/21 07:31 52 L 03/06/21 03:27 36.6 C 77 18 157/85 H 95 Laboratory Results [facility] 03/06/21 07:08 Creatinine 0.57 L Liver Function 03/06/21 Range/Units 07:08 Total Bilirubin 0.9 (0.2-1) mg/dl Direct Bilirubin 0.2 (0-0.2) mg/dl AST 37 (15-37) U/L ALT 26 (12-78) U/L Alkaline Phosphatase 126 H (45-117) U/L Albumin 2.3 L (3.4-5.0) gm/dl Medications Administered Current Inpatient Medications Acetaminophen (Acetaminophen 325 Mg Tab) 650 mg PO Q4H PRN PRN Reason: Pain or Fever Stop: 04/04/21 07:26 Last Admin: 03/05/21 22:07 Dose: 650 mg Documented by: Acetaminophen (Acetaminophen 325 Mg Tab) 650 mg PO Q8H PRN PRN Reason: Headache Stop: 04/04/21 15:12 Albuterol (Albuterol Hfa 8 Gm Inhaler) 2 puffs INH Q4H PRN PRN Reason: Shortness Of Breath Or Wheezing Stop: 04/04/21 07:26 Last Admin: 03/05/21 23:17 Dose: 2 puffs Documented by: Benzonatate (Benzonatate 100 Mg Capsule) 100 mg PO TID NELL Stop: 04/04/21 20:59 Last Admin: 03/06/21 13:23 Dose: 100 mg Documented by: Dextrose (Dextrose 50% 50 Ml Syringe) 25 - 50 ml IV UD PRN; Protocol PRN Reason: Hypoglycemia Protocol Stop: 04/04/21 08:44 Enoxaparin Sodium (Enoxaparin Inj 40 Mg/0.4 Ml Syr) 40 mg SQ Q12 NELL Stop: 04/04/21 08:59 Last Admin: 03/06/21 09:20 Dose: 40 mg Documented by: Fluticasone Furoate (Fluticasone Furoate 100mcg 14 Puffs/Inhaler) 1 puffs INH DAILY NELL Stop: 04/04/21 08:59 Last Admin: 03/06/21 08:39 Dose: 1 puffs Documented by: Fluticasone Propionate (Fluticasone Propionate Na Spr 16 Gm Btl) 1 sprays NA DAILY NELL Stop: 04/04/21 08:59 Last Admin: 03/06/21 09:20 Dose: 1 sprays Documented by: Glucagon (Glucagon For Inj 1 Mg Vial) 1 mg IM UD PRN; Protocol PRN Reason: Hypoglycemia Protocol Stop: 04/04/21 08:44 Glucose (Glucose 40% Gel 15 Gm Tube) 15 - 30 gm PO UD PRN; Protocol PRN Reason: Hypoglycemia Protocol Stop: 04/04/21 08:44 Glucose (Glucose 10 Tabs/Tube) 4 - 8 tabs PO UD PRN; Protocol PRN Reason: Hypoglycemia Protocol Stop: 04/04/21 08:44 Guaifenesin/Dextromethorphan (Guaifenesin/Dextrom Syrup 200mg/20mg 10ml Udc) 10 ml PO Q6H PRN PRN Reason: Cough Stop: 04/05/21 11:45 Last Admin: 03/06/21 13:23 Dose: 10 ml Documented by: Remdesivir 100 mg/ Sodium (Chloride) 250 mls @ 250 mls/hr IV Q24H NELL; Protocol Stop: 03/09/21 12:59 Last Infusion: 03/06/21 13:24 Dose: Infused Documented by: Dexamethasone 6 mg/ Syringe 1.5 mls @ 1 mls/min IV DAILY NELL Stop: 03/15/21 20:59 Last Admin: 03/06/21 08:40 Dose: 1 mls/min Documented by: Insulin Aspart (Insulin Aspart 100 Units/Ml 3 Ml Pen) 0 units SC ACHS NELL Stop: 04/04/21 07:29 Last Admin: 03/06/21 12:26 Dose: 12 units Documented by: Insulin Glargine (Insulin Glargine Solostar 100 Units/Ml 3 Ml Pen) 10 units SC DAILY NELL Stop: 04/06/21 08:59 Ipratropium [place] (Ipratropium [place] Neb Soln 0.02% 2.5 Ml Vial) 0.5 mg NEB Q4H PRN PRN Reason: Shortness Of Breath Or Wheezing Stop: 04/04/21 08:59 Last Admin: 03/05/21 14:29 Dose: 0.5 mg Documented by: Levalbuterol HCl (Levalbuterol 1.25mg/0.5ml Neb) 1.25 mg NEB Q4H PRN PRN Reason: Shortness Of Breath Or Wheezing Stop: 04/04/21 07:26 Last Admin: 03/05/21 14:29 Dose: 1.25 mg Documented by: Miscellaneous (Carbohydrates For Hypoglycemia ) 15 - 30 gm PO UD PRN PRN Reason: Hypoglycemia Treatment Stop: 04/04/21 08:44 Nitroglycerin (Nitroglycerin Sl 0.4 Mg/Tab Tab) 0.4 mg SL UD PRN PRN Reason: Chest Pain Stop: 04/04/21 07:26 Ondansetron HCl (Ondansetron Inj 2 Mg/Ml 2 Ml Vial) 4 mg IV Q6H PRN PRN Reason: Nausea Stop: 04/04/21 07:26 Sodium Chloride (Sodium Chloride 0.9% 10ml Flush) 30 ml IV Q24H NELL Stop: 03/09/21 12:01 Last Admin: 03/06/21 11:58 Dose: 30 ml Documented by:
[2021-03-06] MEDS ORDERED: INSULIN HUMAN REGULAR PER UNIT 5 UNITS in SYRINGE 4.95 ML IV STA (22:20)
[2021-03-07] MEDS: ALBUTEROL HFA 8 GM INHALER INH PRN (03:24)
[2021-03-07 06:17] LABS: Basophils # (auto) 0.01 K/uL (0-0.2); Basophils % (auto) 0.1 %; Hemoglobin 13.7 g/dL (12.0-16.0); Immature Granulocytes # (auto) 0.03 K/uL (0.00-0.02); Immature Granulocytes % (auto) 0.3 %; Lymphocytes # (auto) 1.49 K/uL (1.2-3.4); Lymphocytes % (auto) 15.6 %; Mean Corpuscular Hemoglobin 30.6 pg (25-34); Mean Corpuscular Hgb Conc 33.4 g/dL (32-36); Mean Corpuscular Volume 91.5 fL (80-100); Mean Platelet Volume 9.9 fL (7.4-10.4); Monocytes # (auto) 0.72 K/uL (0.11-0.59); Monocytes % (auto) 7.5 %; Neutrophils % (auto) 76.5 %; Platelet Count 595 K/uL (130-400); RDW Coefficient of Variation 13.2 % (11.5-14.5); RDW Standard Deviation 43.8 fL (36.4-46.3); Red Blood Count 4.48 M/uL (4.2-5.4); White Blood Count 9.55 K/uL (4.8-10.8)
[2021-03-07 07:07] LABS: Albumin Level 2.3 gm/dl (3.4-5.0); Calcium 8.4 mg/dl (8.5-10.1); Creatinine Clr Calc Pharmacy 113.7 ml/min; Est GFR (African American) 117.7 ml/min; Est GFR (Non-African American) 101.6 ml/min; Magnesium 1.9 mg/dl (1.8-2.4); Potassium 3.3 mmol/L (3.5-5.1)
[2021-03-07 07:09] LABS: Albumin Globulin Ratio 0.6 (0.9-2); Bilirubin,Total 0.8 mg/dl (0.2-1); C Reactive Protein 2.12 mg/dl (0-0.29); Globulin 3.9 gm/dl (2.5-4.0); Phosphorus 2.3 mg/dl (2.5-4.9); Total Protein 6.2 gm/dl (6.4-8.2)
[2021-03-07] MEDS ORDERED: POTASSIUM CHLORIDE CRTAB 20 MEQ TABCR PO STA ×2 (08:09→11:08)
[2021-03-07] MEDS ORDERED: FUROSEMIDE 40 MG in SYRINGE 0 ML IV ONE (08:45)
[2021-03-07] MEDS ORDERED: INSULIN GLARGINE SOLOSTAR 100 UNITS/ML 3 ML PEN SC SCH (09:00)
[2021-03-07] MEDS: INSULIN ASPART 100 UNITS/ML 3 ML PEN SC SCH ×4 (09:30→20:45)
[2021-03-07] MEDS: INSULIN GLARGINE SOLOSTAR 100 UNITS/ML 3 ML PEN SC SCH ×2 (09:30→20:45)
[2021-03-07] MEDS: ENOXAPARIN INJ 40 MG/0.4 ML SYR SQ SCH ×2 (10:05→20:44)
[2021-03-07] MEDS: BENZONATATE 100 MG CAPSULE PO SCH ×3 (10:05→20:46)
[2021-03-07] MEDS: dexAMETHasone 6 MG in SYRINGE 0 ML IV SCH (10:05)
[2021-03-07] MEDS: FLUTICASONE PROPIONATE NA SPR 16 GM BTL SCH (10:06)
[2021-03-07] MEDS: FLUTICASONE FUROATE 100MCG 14 PUFFS/INHALER INH SCH (10:07)
[2021-03-07] MEDS: REMDESIVIR 100 MG in SODIUM CHLORIDE 0.9% 230 ML IV SCH (12:50)
[2021-03-07] MEDS: guaiFENesin/DEXTROM SYRUP 200MG/20MG 10ML UDC PO PRN ×2 (12:58→20:40)
[2021-03-07] MEDS ORDERED: POTASSIUM CHLORIDE CRTAB 20 MEQ TABCR PO SCH (14:00)
--- NOTE | 2021-03-07 14:40 | Hospitalist Progress Note ---
Date of Service March 07, 2021 Assessment & Plan (1) Pneumonia due to 2019 novel coronavirus: Plan: 1 week history of cough body aches and shortness of breath Noted to have COVID-19 virus infection with pneumonia on 03/05/2021 Started on intravenous dexamethasone and remdesivir CRP is mildly elevated at 2.72 and sitting and is 1.1 Has been requiring about 4 to 5 L of nasal cannula oxygen to maintain saturation She was strongly advised to use flutter valve and spirometer Prone position as tolerated We will keep her on dry side and will administer 40 of Lasix intravenously today Monitor electrolytes and inflammatory [id number] protein is 2.12 and pro calcitonin is normal Still requiring 6 L oxygen to maintain saturation Another dose of Lasix was given today (2) Asthma: Plan: Likely contributing the shortness of breath Continue home medications (3) Diabetes: Plan: Has been on SSI SSI and Lantus doses have been adjusted (4) CHF (congestive heart failure): Plan: No signs of fluid overload We will keep her on the dry side (5) GERD (gastroesophageal reflux disease): Plan: Continue PPI DVT prophylaxis Subcu Lovenox CODE STATUS Full Admission and Anticipated Discharge Date Admission Date: March 05, 2021 Subjective 03/06/2021 The patient was seen and examined in medical telemetry unit She has been complaining of shortness of breath, cough, weakness and diarrhea She does not feel any better since admission Denies any fever and/or chills 03/07/2021 The patient was seen and examined in medical telemetry She has been complaining of more shortness of breath Denies any more diarrhea but weakness persist She has cough without any phlegm Review of Systems Review of Systems: All systems reviewed and are unremarkable except as noted below Respiratory: Shortness of breath at rest with cough Physical Exam Physical Exam: Lying in bed with moderate shortness of breath and cough at rest Constitutional: well developed, well nourished, + ill appearing and + obese Eyes: PERRL, conjunctivae normal, anicteric sclerae ENMT: external ear and nose normal, oropharynx normal Neck: trachea midline, no thyromegaly Respiratory: + respiratory distress (Moderate shortness of breath at rest), + uses accessory muscles and + cough Auscultation: + diminished lung sounds, + crackles (At the bases) and + wheezes Cardiovascular: Rate/Rhythm: regular rate; not tachycardic Heart Sounds: normal S1 and normal S2; no murmur Extremities: + edema (Trace to 1+ edema bilaterally) Gastrointestinal (Abdomen): Inspection/Auscultation: normal bowel sounds; abdomen not distended Percussion/Palpation: abdomen soft; abdomen nontender Musculoskeletal: No acute arthritis involving any joint Neurologic: Alert, awake and oriented x3. Generally weak Psychiatric: Mood: + anxious mood Lymphatic: no cervical or axillary lymphadenopathy Results & Data Results & Data ([facility]) Vital Signs (Past 12 Hours) Vital Signs Temp Pulse Resp BP Pulse Ox 03/07/21 12:20 36.5 C 73 16 150/94 H 88 L 03/07/21 08:27 37.1 C 79 16 157/92 H 91 03/07/21 03:24 82 20 90 03/07/21 02:36 36.6 C 71 20 154/98 H 88 L Laboratory Results Short CBC 03/07/21 Range/Units 05:32 WBC 9.55 (4.8-10.8) K/uL Hgb 13.7 (12.0-16.0) g/dL Hct 41.0 (37-47) % Plt Count 595 H (130-400) K/uL BMP 03/07/21 05:32 Sodium 138 Potassium 3.3 L Chloride 100 Carbon Dioxide 28 BUN 12 Creatinine 0.50 L Calcium 8.4 L Liver Function 03/07/21 Range/Units 05:32 Total Bilirubin 0.8 (0.2-1) mg/dl AST 24 (15-37) U/L ALT 21 (12-78) U/L Alkaline Phosphatase 135 H (45-117) U/L Albumin 2.3 L (3.4-5.0) gm/dl Medications Administered Current Inpatient Medications Acetaminophen (Acetaminophen 325 Mg Tab) 650 mg PO Q4H PRN PRN Reason: Pain or Fever Stop: 04/04/21 07:26 Last Admin: 03/05/21 22:07 Dose: 650 mg Documented by: Acetaminophen (Acetaminophen 325 Mg Tab) 650 mg PO Q8H PRN PRN Reason: Headache Stop: 04/04/21 15:12 Albuterol (Albuterol Hfa 8 Gm Inhaler) 2 puffs INH Q4H PRN PRN Reason: Shortness Of Breath Or Wheezing Stop: 04/04/21 07:26 Last Admin: 03/07/21 03:24 Dose: 2 puffs Documented by: Benzonatate (Benzonatate 100 Mg Capsule) 100 mg PO TID NELL Stop: 04/04/21 20:59 Last Admin: 03/07/21 10:05 Dose: 100 mg Documented by: Dextrose (Dextrose 50% 50 Ml Syringe) 25 - 50 ml IV UD PRN; Protocol PRN Reason: Hypoglycemia Protocol Stop: 04/04/21 08:44 Enoxaparin Sodium (Enoxaparin Inj 40 Mg/0.4 Ml Syr) 40 mg SQ Q12 NELL Stop: 04/04/21 08:59 Last Admin: 03/07/21 10:05 Dose: 40 mg Documented by: Fluticasone Furoate (Fluticasone Furoate 100mcg 14 Puffs/Inhaler) 1 puffs INH DAILY NELL Stop: 04/04/21 08:59 Last Admin: 03/07/21 10:07 Dose: 1 puffs Documented by: Fluticasone Propionate (Fluticasone Propionate Na Spr 16 Gm Btl) 1 sprays NA DAILY NELL Stop: 04/04/21 08:59 Last Admin: 03/07/21 10:06 Dose: 1 sprays Documented by: Glucagon (Glucagon For Inj 1 Mg Vial) 1 mg IM UD PRN; Protocol PRN Reason: Hypoglycemia Protocol Stop: 04/04/21 08:44 Glucose (Glucose 40% Gel 15 Gm Tube) 15 - 30 gm PO UD PRN; Protocol PRN Reason: Hypoglycemia Protocol Stop: 04/04/21 08:44 Glucose (Glucose 10 Tabs/Tube) 4 - 8 tabs PO UD PRN; Protocol PRN Reason: Hypoglycemia Protocol Stop: 04/04/21 08:44 Guaifenesin/Dextromethorphan (Guaifenesin/Dextrom Syrup 200mg/20mg 10ml Udc) 10 ml PO Q6H PRN PRN Reason: Cough Stop: 04/05/21 11:45 Last Admin: 03/07/21 12:58 Dose: 10 ml Documented by: Remdesivir 100 mg/ Sodium (Chloride) 250 mls @ 250 mls/hr IV Q24H NELL; Protocol Stop: 03/09/21 12:59 Last Admin: 03/07/21 12:50 Dose: 250 mls/hr Documented by: Dexamethasone 6 mg/ Syringe 1.5 mls @ 1 mls/min IV DAILY NELL Stop: 03/15/21 20:59 Last Admin: 03/07/21 10:05 Dose: 1 mls/min Documented by: Insulin Aspart (Insulin Aspart 100 Units/Ml 3 Ml Pen) 0 units SC ACHS NELL Stop: 04/04/21 07:29 Last Admin: 03/07/21 09:30 Dose: 5 units Documented by: Insulin Glargine (Insulin Glargine Solostar 100 Units/Ml 3 Ml Pen) 15 units SC BID [facility] Stop: 04/06/21 20:59 Ipratropium [place] (Ipratropium [place] Neb Soln 0.02% 2.5 Ml Vial) 0.5 mg NEB Q4H PRN PRN Reason: Shortness Of Breath Or Wheezing Stop: 04/04/21 08:59 Last Admin: 03/05/21 14:29 Dose: 0.5 mg Documented by: Levalbuterol HCl (Levalbuterol 1.25mg/0.5ml Neb) 1.25 mg NEB Q4H PRN PRN Reason: Shortness Of Breath Or Wheezing Stop: 04/04/21 07:26 Last Admin: 03/05/21 14:29 Dose: 1.25 mg Documented by: Miscellaneous (Carbohydrates For Hypoglycemia ) 15 - 30 gm PO UD PRN PRN Reason: Hypoglycemia Treatment Stop: 04/04/21 08:44 Nitroglycerin (Nitroglycerin Sl 0.4 Mg/Tab Tab) 0.4 mg SL UD PRN PRN Reason: Chest Pain Stop: 04/04/21 07:26 Ondansetron HCl (Ondansetron Inj 2 Mg/Ml 2 Ml Vial) 4 mg IV Q6H PRN PRN Reason: Nausea Stop: 04/04/21 07:26 Sodium Chloride (Sodium Chloride 0.9% 10ml Flush) 30 ml IV Q24H [facility] Stop: 03/09/21 12:01 Last Admin: 03/06/21 11:58 Dose: 30 ml Documented by:
[2021-03-07] MEDS: SODIUM CHLORIDE 0.9% 10ML FLUSH IV SCH (14:54)
[2021-03-07] MEDS ORDERED: INSULIN HUMAN REGULAR PER UNIT 4 UNITS in SYRINGE 3.96 ML IV ONE (20:30)
[2021-03-08] MEDS: guaiFENesin/DEXTROM SYRUP 200MG/20MG 10ML UDC PO PRN ×2 (06:05→12:29)
[2021-03-08] MEDS ORDERED: POTASSIUM CHLORIDE CRTAB 20 MEQ TABCR PO STA (07:30)
[2021-03-08] MEDS ORDERED: FUROSEMIDE 40 MG in SYRINGE 0 ML IV ONE (07:30)
[2021-03-08] MEDS ORDERED: FUROSEMIDE 40 MG/4 ML VIAL IV ONE (07:45)
[2021-03-08] MEDS: FLUTICASONE FUROATE 100MCG 14 PUFFS/INHALER INH SCH (07:50)
[2021-03-08] MEDS: FLUTICASONE PROPIONATE NA SPR 16 GM BTL SCH (07:51)
[2021-03-08] MEDS: BENZONATATE 100 MG CAPSULE PO SCH ×3 (07:51→21:08)
[2021-03-08] MEDS: dexAMETHasone 6 MG in SYRINGE 0 ML IV SCH (07:53)
[2021-03-08] MEDS: ENOXAPARIN INJ 40 MG/0.4 ML SYR SQ SCH ×2 (07:53→21:09)
[2021-03-08 08:51] LABS: Creatinine Clr Calc Pharmacy 102.4 ml/min; Est GFR (African American) 114.1 ml/min; Est GFR (Non-African American) 98.4 ml/min
[2021-03-08] MEDS: INSULIN ASPART 100 UNITS/ML 3 ML PEN SC SCH ×4 (09:07→21:37)
[2021-03-08] MEDS: INSULIN GLARGINE SOLOSTAR 100 UNITS/ML 3 ML PEN SC SCH ×2 (09:08→21:36)
[2021-03-08] MEDS: REMDESIVIR 100 MG in SODIUM CHLORIDE 0.9% 230 ML IV SCH (12:32)
[2021-03-08] MEDS: SODIUM CHLORIDE 0.9% 10ML FLUSH IV SCH (13:40)
--- NOTE | 2021-03-08 13:47 | Hospitalist Progress Note ---
Date of Service March 08, 2021 Assessment & Plan (1) Pneumonia due to 2019 novel coronavirus: Plan: 1 week history of cough body aches and shortness of breath Noted to have COVID-19 virus infection with pneumonia on 03/05/2021 Started on intravenous dexamethasone and remdesivir CRP is mildly elevated at 2.72 and sitting and is 1.1 Has been requiring about 4 to 5 L of nasal cannula oxygen to maintain saturation She was strongly advised to use flutter valve and spirometer Prone position as tolerated We will keep her on dry side and will administer 40 of Lasix intravenously today Monitor electrolytes and inflammatory [id number] protein is 2.12 and pro calcitonin is normal Still requiring 6 L oxygen to maintain saturation Clinically a little better today and will give another dose of Lasix today 03/08/2021 (2) Asthma: Plan: Likely contributing the shortness of breath Continue home medications (3) Diabetes: Plan: Has been on SSI SSI and Lantus doses have been adjusted (4) CHF (congestive heart failure): Plan: No signs of fluid overload We will keep her on the dry side (5) GERD (gastroesophageal reflux disease): Plan: Continue PPI DVT prophylaxis Subcu Lovenox CODE STATUS Full Admission and Anticipated Discharge Date Admission Date: March 05, 2021 Subjective 03/06/2021 The patient was seen and examined in medical telemetry unit She has been complaining of shortness of breath, cough, weakness and diarrhea She does not feel any better since admission Denies any fever and/or chills 03/07/2021 The patient was seen and examined in medical telemetry She has been complaining of more shortness of breath Denies any more diarrhea but weakness persist She has cough without any phlegm 03/08/2021 The patient was seen and examined in medical telemetry unit and in Covid room She has been feeling much better but is still requiring up to 6 L of oxygen to maintain saturation Denies any fever and chills She is worried about her daughter Review of Systems Review of Systems: All systems reviewed and are unremarkable except as noted below Respiratory: Shortness of breath at rest with cough Physical Exam Physical Exam: Lying in bed with moderate shortness of breath and cough at rest Constitutional: well developed, well nourished, + ill appearing and + obese Eyes: PERRL, conjunctivae normal, anicteric sclerae ENMT: external ear and nose normal, oropharynx normal Neck: trachea midline, no thyromegaly Respiratory: + respiratory distress (Moderate shortness of breath at rest), + uses accessory muscles and + cough Auscultation: + diminished lung sounds, + crackles (At the bases) and + wheezes Cardiovascular: Rate/Rhythm: regular rate; not tachycardic Heart Sounds: normal S1 and normal S2; no murmur Extremities: + edema (Trace to 1+ edema bilaterally) Gastrointestinal (Abdomen): Inspection/Auscultation: normal bowel sounds; abdomen not distended Percussion/Palpation: abdomen soft; abdomen nontender Musculoskeletal: No acute arthritis in any joint Neurologic: Alert, awake and oriented x3. Generally weak but no focal sensory or motor deficit appreciated Psychiatric: A+Ox3, euthymic affect Mood: + anxious mood Lymphatic: no cervical or axillary lymphadenopathy Results & Data Results & Data ([facility]) Vital Signs (Past 12 Hours) Vital Signs Temp Pulse Pulse Resp BP Pulse Ox 03/08/21 12:11 36.6 C 71 16 129/75 89 L 03/08/21 08:21 36.5 C 75 16 138/83 86 L 03/08/21 07:30 70 03/08/21 04:00 36.4 C L 72 18 154/90 H 91 03/08/21 01:47 70 Laboratory Results [facility] 03/08/21 07:57 Creatinine 0.55 L Liver Function 03/08/21 Range/Units 07:57 AST 36 (15-37) U/L ALT 24 (12-78) U/L Medications Administered Current Inpatient Medications Acetaminophen (Acetaminophen 325 Mg Tab) 650 mg PO Q4H PRN PRN Reason: Pain or Fever Stop: 04/04/21 07:26 Last Admin: 03/05/21 22:07 Dose: 650 mg Documented by: Acetaminophen (Acetaminophen 325 Mg Tab) 650 mg PO Q8H PRN PRN Reason: Headache Stop: 04/04/21 15:12 Albuterol (Albuterol Hfa 8 Gm Inhaler) 2 puffs INH Q4H PRN PRN Reason: Shortness Of Breath Or Wheezing Stop: 04/04/21 07:26 Last Admin: 03/07/21 03:24 Dose: 2 puffs Documented by: Benzonatate (Benzonatate 100 Mg Capsule) 100 mg PO TID NELL Stop: 04/04/21 20:59 Last Admin: 03/08/21 13:40 Dose: 100 mg Documented by: Dextrose (Dextrose 50% 50 Ml Syringe) 25 - 50 ml IV UD PRN; Protocol PRN Reason: Hypoglycemia Protocol Stop: 04/04/21 08:44 Enoxaparin Sodium (Enoxaparin Inj 40 Mg/0.4 Ml Syr) 40 mg SQ Q12 NELL Stop: 04/04/21 08:59 Last Admin: 03/08/21 07:53 Dose: 40 mg Documented by: Fluticasone Furoate (Fluticasone Furoate 100mcg 14 Puffs/Inhaler) 1 puffs INH DAILY NELL Stop: 04/04/21 08:59 Last Admin: 03/08/21 07:50 Dose: 1 puffs Documented by: Fluticasone Propionate (Fluticasone Propionate Na Spr 16 Gm Btl) 1 sprays NA DAILY NELL Stop: 04/04/21 08:59 Last Admin: 03/08/21 07:51 Dose: 1 sprays Documented by: Glucagon (Glucagon For Inj 1 Mg Vial) 1 mg IM UD PRN; Protocol PRN Reason: Hypoglycemia Protocol Stop: 04/04/21 08:44 Glucose (Glucose 40% Gel 15 Gm Tube) 15 - 30 gm PO UD PRN; Protocol PRN Reason: Hypoglycemia Protocol Stop: 04/04/21 08:44 Glucose (Glucose 10 Tabs/Tube) 4 - 8 tabs PO UD PRN; Protocol PRN Reason: Hypoglycemia Protocol Stop: 04/04/21 08:44 Guaifenesin/Dextromethorphan (Guaifenesin/Dextrom Syrup 200mg/20mg 10ml Udc) 10 ml PO Q6H PRN PRN Reason: Cough Stop: 04/05/21 11:45 Last Admin: 03/08/21 12:29 Dose: 10 ml Documented by: Remdesivir 100 mg/ Sodium (Chloride) 250 mls @ 250 mls/hr IV Q24H NELL; Protocol Stop: 03/09/21 12:59 Last Admin: 03/08/21 12:32 Dose: 250 mls/hr Documented by: Dexamethasone 6 mg/ Syringe 1.5 mls @ 1 mls/min IV DAILY NELL Stop: 03/15/21 20:59 Last Admin: 03/08/21 07:53 Dose: 1 mls/min Documented by: Insulin Aspart (Insulin Aspart 100 Units/Ml 3 Ml Pen) 0 units SC ACHS NELL Stop: 04/04/21 07:29 Last Admin: 03/08/21 12:48 Dose: 20 units Documented by: Insulin Glargine (Insulin Glargine Solostar 100 Units/Ml 3 Ml Pen) 15 units SC BID NELL Stop: 04/06/21 20:59 Last Admin: 03/08/21 09:08 Dose: 15 units Documented by: Ipratropium [place] (Ipratropium [place] Neb Soln 0.02% 2.5 Ml Vial) 0.5 mg NEB Q4H PRN PRN Reason: Shortness Of Breath Or Wheezing Stop: 04/04/21 08:59 Last Admin: 03/05/21 14:29 Dose: 0.5 mg Documented by: Levalbuterol HCl (Levalbuterol 1.25mg/0.5ml Neb) 1.25 mg NEB Q4H PRN PRN Reason: Shortness Of Breath Or Wheezing Stop: 04/04/21 07:26 Last Admin: 03/05/21 14:29 Dose: 1.25 mg Documented by: Miscellaneous (Carbohydrates For Hypoglycemia ) 15 - 30 gm PO UD PRN PRN Reason: Hypoglycemia Treatment Stop: 04/04/21 08:44 Nitroglycerin (Nitroglycerin Sl 0.4 Mg/Tab Tab) 0.4 mg SL UD PRN PRN Reason: Chest Pain Stop: 04/04/21 07:26 Ondansetron HCl (Ondansetron Inj 2 Mg/Ml 2 Ml Vial) 4 mg IV Q6H PRN PRN Reason: Nausea Stop: 04/04/21 07:26 Sodium Chloride (Sodium Chloride 0.9% 10ml Flush) 30 ml IV Q24H [facility] Stop: 03/09/21 12:01 Last Admin: 03/08/21 13:40 Dose: 30 ml Documented by:
[2021-03-09] MEDS ORDERED: INSULIN ASPART 100 UNITS/ML 3 ML PEN SC STA (00:26)
[2021-03-09] MEDS: INSULIN ASPART 100 UNITS/ML 3 ML PEN SC SCH ×4 (07:53→21:43)
[2021-03-09] MEDS: dexAMETHasone 6 MG in SYRINGE 0 ML IV SCH (07:53)
[2021-03-09] MEDS: FLUTICASONE PROPIONATE NA SPR 16 GM BTL SCH (07:54)
[2021-03-09] MEDS: BENZONATATE 100 MG CAPSULE PO SCH ×3 (07:54→20:57)
[2021-03-09] MEDS: FLUTICASONE FUROATE 100MCG 14 PUFFS/INHALER INH SCH (07:54)
[2021-03-09] MEDS: guaiFENesin/DEXTROM SYRUP 200MG/20MG 10ML UDC PO PRN ×2 (07:56→18:24)
[2021-03-09 08:51] LABS: BUN Creatinine Ratio 33.5 (10-20); Calcium 8.4 mg/dl (8.5-10.1); Creatinine Clr Calc Pharmacy 106.2 ml/min; Est GFR (African American) 115.5 ml/min; Est GFR (Non-African American) 99.6 ml/min; Magnesium 2.3 mg/dl (1.8-2.4)
[2021-03-09 08:56] LABS: Phosphorus 3.6 mg/dl (2.5-4.9)
[2021-03-09] MEDS ORDERED: POTASSIUM CHLORIDE CRTAB 20 MEQ TABCR PO STA ×2 (09:15→17:00)
[2021-03-09] MEDS: ENOXAPARIN INJ 40 MG/0.4 ML SYR SQ SCH ×2 (09:22→20:58)
[2021-03-09] MEDS: INSULIN GLARGINE SOLOSTAR 100 UNITS/ML 3 ML PEN SC SCH (09:38)
[2021-03-09] MEDS: REMDESIVIR 100 MG in SODIUM CHLORIDE 0.9% 230 ML IV SCH (13:00)
[2021-03-09] MEDS: SODIUM CHLORIDE 0.9% 10ML FLUSH IV SCH (13:04)
[2021-03-09] MEDS ORDERED: Nursing to Pharmacy Communication SCH (16:30)
[2021-03-09] MEDS ORDERED: PHARMACY GLYCEMIC MGMT CONSULT PRN (16:34)
[2021-03-09] MEDS ORDERED: FUROSEMIDE 40 MG in SYRINGE 0 ML IV ONE (17:00)
--- NOTE | 2021-03-09 17:00 | Hospitalist Progress Note ---
Date of Service March 09, 2021 Assessment & Plan (1) Pneumonia due to 2019 novel coronavirus: Plan: 1 week history of cough body aches and shortness of breath Noted to have COVID-19 virus infection with pneumonia on 03/05/2021 Started on intravenous dexamethasone and remdesivir CRP is mildly elevated at 2.72 and sitting and is 1.1 Has been requiring about 4 to 5 L of nasal cannula oxygen to maintain saturation She was strongly advised to use flutter valve and spirometer Prone position as tolerated We will keep her on dry side and will administer 40 of Lasix intravenously today Monitor electrolytes and inflammatory saattis-Q-[id number] protein is 2.12 and pro calcitonin is normal Still requiring 6 L oxygen to maintain saturation Remains stable and oxygen requirements has gone down to 4 L/min as of now We will give another dose of potassium and Lasix (2) Asthma: Plan: Likely contributing the shortness of breath Continue home medications (3) Diabetes: Plan: Has been on SSI SSI and Lantus doses have been adjusted Blood sugar has been running very high and has been very difficult to control Will get input from glycemic pharmacist (4) CHF (congestive heart failure): Plan: No signs of fluid overload We will keep her on the dry side (5) GERD (gastroesophageal reflux disease): Plan: Continue PPI DVT prophylaxis Subcu Lovenox CODE STATUS Full Admission and Anticipated Discharge Date Admission Date: March 05, 2021 Subjective 03/06/2021 The patient was seen and examined in medical telemetry unit She has been complaining of shortness of breath, cough, weakness and diarrhea She does not feel any better since admission Denies any fever and/or chills 03/07/2021 The patient was seen and examined in medical telemetry She has been complaining of more shortness of breath Denies any more diarrhea but weakness persist She has cough without any phlegm 03/08/2021 The patient was seen and examined in medical telemetry unit and in Covid room She has been feeling much better but is still requiring up to 6 L of oxygen to maintain saturation Denies any fever and chills She is worried about her daughter March 09, 2021 The patient was seen and examined in medical telemetry unit and in Covid room She has been feeling a little better today Has cough and is still requiring 6 L of oxygen to maintain saturation She is very anxious about her daughter Review of Systems Review of Systems: All systems reviewed and are unremarkable except as noted below Respiratory: Shortness of breath at rest with cough Physical Exam Physical Exam: Lying in bed with moderate shortness of breath and cough at rest Constitutional: well developed, well nourished, + ill appearing and + obese Eyes: PERRL, conjunctivae normal, anicteric sclerae ENMT: external ear and nose normal, oropharynx normal Neck: trachea midline, no thyromegaly Respiratory: + respiratory distress (Moderate shortness of breath at rest), + uses accessory muscles and + cough Auscultation: + diminished lung sounds, + crackles (At the bases) and + wheezes Cardiovascular: Rate/Rhythm: regular rate; not tachycardic Heart Sounds: normal S1 and normal S2; no murmur Extremities: + edema (Trace to 1+ edema bilaterally) Gastrointestinal (Abdomen): Inspection/Auscultation: normal bowel sounds; abdomen not distended Percussion/Palpation: abdomen soft; abdomen nontender Musculoskeletal: No acute arthritis in any joint Neurologic: Alert, awake and oriented x3. Generally weak and lethargic Psychiatric: A+Ox3, euthymic affect Mood: + anxious mood Lymphatic: no cervical or axillary lymphadenopathy Results & Data Results & Data ([facility]) Vital Signs (Past 12 Hours) Vital Signs Temp Pulse Pulse Resp BP Pulse Ox Pulse Ox 03/09/21 15:20 36.4 C L 83 22 110/71 90 03/09/21 11:45 36.6 C 81 22 154/91 H 92 03/09/21 09:00 66 90 03/09/21 05:01 36.6 C 68 16 92 Laboratory Results [facility] 03/09/21 07:50 Sodium 142 Potassium 3.0 L Chloride 101 Carbon Dioxide 33 H BUN 18 Creatinine 0.53 L Glucose 94 Calcium 8.4 L Liver Function 03/09/21 Range/Units 07:50 AST 23 (15-37) U/L ALT 22 (12-78) U/L Medications Administered Current Inpatient Medications Acetaminophen (Acetaminophen 325 Mg Tab) 650 mg PO Q4H PRN PRN Reason: Pain or Fever Stop: 04/04/21 07:26 Last Admin: 03/05/21 22:07 Dose: 650 mg Documented by: Acetaminophen (Acetaminophen 325 Mg Tab) 650 mg PO Q8H PRN PRN Reason: Headache Stop: 04/04/21 15:12 Albuterol (Albuterol Hfa 8 Gm Inhaler) 2 puffs INH Q4H PRN PRN Reason: Shortness Of Breath Or Wheezing Stop: 04/04/21 07:26 Last Admin: 03/07/21 03:24 Dose: 2 puffs Documented by: Benzonatate (Benzonatate 100 Mg Capsule) 100 mg PO TID NELL Stop: 04/04/21 20:59 Last Admin: 03/09/21 13:04 Dose: 100 mg Documented by: Dextrose (Dextrose 50% 50 Ml Syringe) 25 - 50 ml IV UD PRN; Protocol PRN Reason: Hypoglycemia Protocol Stop: 04/04/21 08:44 Enoxaparin Sodium (Enoxaparin Inj 40 Mg/0.4 Ml Syr) 40 mg SQ Q12 NELL Stop: 04/04/21 08:59 Last Admin: 03/09/21 09:22 Dose: 40 mg Documented by: Fluticasone Furoate (Fluticasone Furoate 100mcg 14 Puffs/Inhaler) 1 puffs INH DAILY NELL Stop: 04/04/21 08:59 Last Admin: 03/09/21 07:54 Dose: 1 puffs Documented by: Fluticasone Propionate (Fluticasone Propionate Na Spr 16 Gm Btl) 1 sprays NA DAILY NELL Stop: 04/04/21 08:59 Last Admin: 03/09/21 07:54 Dose: 1 sprays Documented by: Glucagon (Glucagon For Inj 1 Mg Vial) 1 mg IM UD PRN; Protocol PRN Reason: Hypoglycemia Protocol Stop: 04/04/21 08:44 Glucose (Glucose 40% Gel 15 Gm Tube) 15 - 30 gm PO UD PRN; Protocol PRN Reason: Hypoglycemia Protocol Stop: 04/04/21 08:44 Glucose (Glucose 10 Tabs/Tube) 4 - 8 tabs PO UD PRN; Protocol PRN Reason: Hypoglycemia Protocol Stop: 04/04/21 08:44 Guaifenesin/Dextromethorphan (Guaifenesin/Dextrom Syrup 200mg/20mg 10ml Udc) 10 ml PO Q6H PRN PRN Reason: Cough Stop: 04/05/21 11:45 Last Admin: 03/09/21 07:56 Dose: 10 ml Documented by: Dexamethasone 6 mg/ Syringe 1.5 mls @ 1 mls/min IV DAILY ENLL Stop: 03/15/21 20:59 Last Admin: 03/09/21 07:53 Dose: 1 mls/min Documented by: Insulin Aspart (Insulin Aspart 100 Units/Ml 3 Ml Pen) 0 units SC ACHS NELL Stop: 04/04/21 07:29 Last Admin: 03/09/21 13:15 Dose: 17 units Documented by: Insulin Glargine (Insulin Glargine Solostar 100 Units/Ml 3 Ml Pen) 20 units SC BID NELL Stop: 04/07/21 20:59 Last Admin: 03/09/21 09:38 Dose: 20 units Documented by: Ipratropium [place] (Ipratropium [place] Neb Soln 0.02% 2.5 Ml Vial) 0.5 mg NEB Q4H PRN PRN Reason: Shortness Of Breath Or Wheezing Stop: 04/04/21 08:59 Last Admin: 03/05/21 14:29 Dose: 0.5 mg Documented by: Levalbuterol HCl (Levalbuterol 1.25mg/0.5ml Neb) 1.25 mg NEB Q4H PRN PRN Reason: Shortness Of Breath Or Wheezing Stop: 04/04/21 07:26 Last Admin: 03/05/21 14:29 Dose: 1.25 mg Documented by: Miscellaneous (Carbohydrates For Hypoglycemia ) 15 - 30 gm PO UD PRN PRN Reason: Hypoglycemia Treatment Stop: 04/04/21 08:44 Miscellaneous Information (Nursing To Pharmacy Communication) 1 ea N/A TODAY [facility] Stop: 04/08/21 16:29 Miscellaneous Information (Pharmacy Glycemic Mgmt Consult) 1 ea N/A UD PRN PRN Reason: Consult Stop: 04/08/21 16:33 Nitroglycerin (Nitroglycerin Sl 0.4 Mg/Tab Tab) 0.4 mg SL UD PRN PRN Reason: Chest Pain Stop: 04/04/21 07:26 Ondansetron HCl (Ondansetron Inj 2 Mg/Ml 2 Ml Vial) 4 mg IV Q6H PRN PRN Reason: Nausea Stop: 04/04/21 07:26
[2021-03-09] MEDS ORDERED: INSULIN GLARGINE SOLOSTAR 100 UNITS/ML 3 ML PEN SC SCH (17:15)
[2021-03-09] MEDS ORDERED: FUROSEMIDE 40 MG/4 ML VIAL IV SCH (17:15)
[2021-03-10] MEDS: guaiFENesin/DEXTROM SYRUP 200MG/20MG 10ML UDC PO PRN ×4 (00:04→23:55)
[2021-03-10] MEDS: INSULIN ASPART 100 UNITS/ML 3 ML PEN SC SCH ×6 (00:21→21:18)
[2021-03-10 07:25] LABS: BUN Creatinine Ratio 29.3 (10-20); Calcium 8.2 mg/dl (8.5-10.1); Creatinine Clr Calc Pharmacy 90.3 ml/min; Est GFR (African American) 109.7 ml/min; Est GFR (Non-African American) 94.6 ml/min; Magnesium 1.9 mg/dl (1.8-2.4); Potassium 3.5 mmol/L (3.5-5.1)
[2021-03-10] MEDS: INSULIN HUMAN NPH SC SCH (08:00)
[2021-03-10] MEDS: INSULIN GLARGINE SOLOSTAR 100 UNITS/ML 3 ML PEN SC SCH ×2 (08:00→21:19)
[2021-03-10] MEDS: FLUTICASONE FUROATE 100MCG 14 PUFFS/INHALER INH SCH (08:02)
[2021-03-10] MEDS: ENOXAPARIN INJ 40 MG/0.4 ML SYR SQ SCH ×2 (08:02→20:53)
[2021-03-10] MEDS: FLUTICASONE PROPIONATE NA SPR 16 GM BTL SCH (08:02)
[2021-03-10] MEDS: BENZONATATE 100 MG CAPSULE PO SCH ×3 (08:02→20:53)
[2021-03-10] MEDS: dexAMETHasone 6 MG in SYRINGE 0 ML IV SCH (08:03)
[2021-03-10] MEDS: LEVALBUTEROL 1.25MG/0.5ML NEB NEB PRN (09:13)
[2021-03-10] MEDS: IPRATROPIUM BROMIDE NEB SOLN 0.02% 2.5 ML VIAL NEB PRN (09:13)
--- NOTE | 2021-03-10 11:53 | Pharmacy Report ---
Pharmacy Glycemic Short Note 2 - Date of Service March 10, 2021 - Glycemic Short BSG Results (Last 24 hours): 03/09/21 03/09/21 03/09/21 16:10 16:12 20:04 Glucose POC Glucose 386 H* 386 H* 342 H* 03/09/21 03/10/21 03/10/21 23:38 04:44 06:02 Glucose 84 POC Glucose 197 H 84 03/10/21 03/10/21 07:47 10:56 Glucose POC Glucose 104 H 239 H OUTPATIENT ANTIDIABETIC REGIMEN: * Lantus TID * Pt is unsure of her insulin regimen. She states that she has been ill and isn't sure when she last took her insulin. She acknowledges that non- compliance is an issue. * HbA1c: 12.4% (03/05/21) ASSESSMENT: * Ms He is a 65yo diabetic female admitted on 03/04 with COVID/pneumonia. * Pt has been receiving IV dexamethasone, with steroid-induced hyperglycemia throughout admission. * Pharmacy consult placed last evening. * Pt received 144 units of insulin yesterday. * 45 units of basal insulin with Lantus * 99 units of bolus insulin with Novolog * NPH added this morning to provide additional coverage throughout the day while on high-dose steroids. * Novolog parameters were adjusted last evening to provide additional carb coverage. Will further tighten if glycemic control does not improve adequately. * Fasting BSG was near goal this morning (104mg/dL), so no adjustment to Lantus at this time. PLAN FOR INPATIENT GLYCEMIC CONTROL: * Hold outpatient oral diabetes medications * Basal insulin * Lantus 20 units SQ BID * NPH 36 units SQ qAM -- to be administered with daily DXM -- THIS SHOULD BE HELD IF DXM HELD/DISCONTINUED * Bolus insulin * NovoLog per scale ACHS or Q6hrs while NPO * Goal Range: Low 110 mg/dL - High 140 mg/dL * Correction Factor: 15 mg/dL/unit * Nutritional / Prandial insulin per carb ratio of 1 unit per 3 grams CHO consumed PLAN FOR DISCHARGE: * TBD
[2021-03-10] MEDS ORDERED: POTASSIUM CHLORIDE CRTAB 20 MEQ TABCR PO STA (14:25)
--- NOTE | 2021-03-10 14:25 | Hospitalist Progress Note ---
Date of Service March 10, 2021 Assessment & Plan (1) Pneumonia due to 2019 novel coronavirus: Plan: 1 week history of cough body aches and shortness of breath;; she is not vaccinated Noted to have COVID-19 virus infection with pneumonia on 03/05/2021 Started on intravenous dexamethasone and remdesivir CRP is mildly elevated at 2.72 and sitting and is 1.1 Has been requiring about 4 to 5 L of nasal cannula oxygen to maintain saturation She was strongly advised to use flutter valve and spirometer Prone position as tolerated We will keep her on dry side and will administer 40 of Lasix intravenously today Monitor electrolytes and inflammatory [id number]-E-tugdtyrs protein is 2.12 and procalcitonin is normal Still requiring 6 L oxygen to maintain saturation Remains stable and oxygen requirements has gone down to 4 L/min as of now Not yet in negative balance-we will give another dose of Lasix today with potassium We will continue current management (2) Asthma: Plan: Likely contributing the shortness of breath Continue home medications (3) Diabetes: Plan: Has been on SSI SSI and Lantus doses have been adjusted Blood sugar has been running very high and has been very difficult to control Will get input from glycemic pharmacist (4) CHF (congestive heart failure): Plan: No signs of fluid overload We will keep her on the dry side (5) GERD (gastroesophageal reflux disease): Plan: Continue PPI DVT prophylaxis Subcu Lovenox CODE STATUS Full Admission and Anticipated Discharge Date Admission Date: March 05, 2021 Subjective 03/06/2021 The patient was seen and examined in medical telemetry unit She has been complaining of shortness of breath, cough, weakness and diarrhea She does not feel any better since admission Denies any fever and/or chills 03/07/2021 The patient was seen and examined in medical telemetry She has been complaining of more shortness of breath Denies any more diarrhea but weakness persist She has cough without any phlegm 03/08/2021 The patient was seen and examined in medical telemetry unit and in Covid room She has been feeling much better but is still requiring up to 6 L of oxygen to maintain saturation Denies any fever and chills She is worried about her daughter March 09, 2021 The patient was seen and examined in medical telemetry unit and in Covid room She has been feeling a little better today Has cough and is still requiring 6 L of oxygen to maintain saturation She is very anxious about her daughter 03/10/2021 The patient was seen and examined in medical telemetry unit and in the Covid room She remains very anxious and her oxygen requirements remain around 6 L/min Feels a little better compared with yesterday Denies any fever and chills, any abdominal pain nausea and or vomiting Remains very weak and lethargic Review of Systems Review of Systems: All systems reviewed and are unremarkable except as noted below Respiratory: Shortness of breath at rest with cough Musculoskeletal: Generally very weak and lethargic Psychiatric: Very anxious Physical Exam Physical Exam: Lying in bed with moderate shortness of breath and cough at rest Constitutional: well developed, well nourished, + ill appearing and + obese Eyes: PERRL, conjunctivae normal, anicteric sclerae ENMT: external ear and nose normal, oropharynx normal Neck: trachea midline, no thyromegaly Respiratory: + respiratory distress (Moderate shortness of breath at rest), + uses accessory muscles and + cough Auscultation: + diminished lung sounds, + crackles (At the bases) and + wheezes Cardiovascular: Rate/Rhythm: regular rate; not tachycardic Heart Sounds: normal S1 and normal S2; no murmur Extremities: + edema (Trace to 1+ edema bilaterally) Gastrointestinal (Abdomen): Inspection/Auscultation: normal bowel sounds; abdomen not distended Percussion/Palpation: abdomen soft; abdomen nontender Musculoskeletal: No acute arthritis in any joint Neurologic: Alert, awake and oriented x3. Very worried about the daughter Psychiatric: A+Ox3, euthymic affect Mood: + anxious mood Lymphatic: no cervical or axillary lymphadenopathy Results & Data Results & Data ([facility]) Vital Signs (Past 12 Hours) Vital Signs Temp Pulse Pulse Resp BP Pulse Ox Pulse Ox 03/10/21 11:00 81 20 162/78 H 87 L 03/10/21 09:13 80 16 95 03/10/21 09:00 67 90 03/10/21 07:00 36.6 C 72 20 132/78 88 L 03/10/21 03:42 36.4 C L 82 18 139/92 91 Laboratory Results [facility] 03/10/21 06:02 Sodium 139 Potassium 3.5 D Chloride 103 Carbon Dioxide 32 BUN 18 Creatinine 0.62 Glucose 84 Calcium 8.2 L Medications Administered Current Inpatient Medications Acetaminophen (Acetaminophen 325 Mg Tab) 650 mg PO Q4H PRN PRN Reason: Pain or Fever Stop: 04/04/21 07:26 Last Admin: 03/05/21 22:07 Dose: 650 mg Documented by: Albuterol (Albuterol Hfa 8 Gm Inhaler) 2 puffs INH Q4H PRN PRN Reason: Shortness Of Breath Or Wheezing Stop: 04/04/21 07:26 Last Admin: 03/07/21 03:24 Dose: 2 puffs Documented by: Benzonatate (Benzonatate 100 Mg Capsule) 100 mg PO TID NELL Stop: 04/04/21 20:59 Last Admin: 03/10/21 13:08 Dose: 100 mg Documented by: Dextrose (Dextrose 50% 50 Ml Syringe) 25 - 50 ml IV UD PRN; Protocol PRN Reason: Hypoglycemia Protocol Stop: 04/04/21 08:44 Enoxaparin Sodium (Enoxaparin Inj 40 Mg/0.4 Ml Syr) 40 mg SQ Q12 NELL Stop: 04/04/21 08:59 Last Admin: 03/10/21 08:02 Dose: 40 mg Documented by: Fluticasone Furoate (Fluticasone Furoate 100mcg 14 Puffs/Inhaler) 1 puffs INH DAILY NELL Stop: 04/04/21 08:59 Last Admin: 03/10/21 08:02 Dose: 1 puffs Documented by: Fluticasone Propionate (Fluticasone Propionate Na Spr 16 Gm Btl) 1 sprays NA DAILY NELL Stop: 04/04/21 08:59 Last Admin: 03/10/21 08:02 Dose: 1 sprays Documented by: Glucagon (Glucagon For Inj 1 Mg Vial) 1 mg IM UD PRN; Protocol PRN Reason: Hypoglycemia Protocol Stop: 04/04/21 08:44 Glucose (Glucose 40% Gel 15 Gm Tube) 15 - 30 gm PO UD PRN; Protocol PRN Reason: Hypoglycemia Protocol Stop: 04/04/21 08:44 Glucose (Glucose 10 Tabs/Tube) 4 - 8 tabs PO UD PRN; Protocol PRN Reason: Hypoglycemia Protocol Stop: 04/04/21 08:44 Guaifenesin/Dextromethorphan (Guaifenesin/Dextrom Syrup 200mg/20mg 10ml Udc) 10 ml PO Q6H PRN PRN Reason: Cough Stop: 04/05/21 11:45 Last Admin: 03/10/21 08:01 Dose: 10 ml Documented by: Dexamethasone 6 mg/ Syringe 1.5 mls @ 1 mls/min IV DAILY [facility] Stop: 03/15/21 20:59 Last Admin: 03/10/21 08:03 Dose: 1 mls/min Documented by: Insulin Aspart (Insulin Aspart 100 Units/Ml 3 Ml Pen) 0 units SC ACHS [facility] Stop: 04/04/21 07:29 Last Admin: 03/10/21 13:16 Dose: 31 units Documented by: Insulin Glargine (Insulin Glargine Solostar 100 Units/Ml 3 Ml Pen) 20 units SC BID [facility] Stop: 04/09/21 08:59 Last Admin: 03/10/21 08:00 Dose: 20 units Documented by: Insulin Human NPH (Insulin Human Nph) 36 units SC DAILY@0900 [facility] Stop: 04/09/21 08:59 Last Admin: 03/10/21 08:00 Dose: 36 units Documented by: Ipratropium [place] (Ipratropium [place] Neb Soln 0.02% 2.5 Ml Vial) 0.5 mg NEB Q4H PRN PRN Reason: Shortness Of Breath Or Wheezing Stop: 04/04/21 08:59 Last Admin: 03/10/21 09:13 Dose: 0.5 mg Documented by: Levalbuterol HCl (Levalbuterol 1.25mg/0.5ml Neb) 1.25 mg NEB Q4H PRN PRN Reason: Shortness Of Breath Or Wheezing Stop: 04/04/21 07:26 Last Admin: 03/10/21 09:13 Dose: 1.25 mg Documented by: Miscellaneous (Carbohydrates For Hypoglycemia ) 15 - 30 gm PO UD PRN PRN Reason: Hypoglycemia Treatment Stop: 04/04/21 08:44 Miscellaneous Information (Pharmacy Glycemic Mgmt Consult) 1 ea N/A UD PRN PRN Reason: Consult Stop: 04/08/21 16:33 Nitroglycerin (Nitroglycerin Sl 0.4 Mg/Tab Tab) 0.4 mg SL UD PRN PRN Reason: Chest Pain Stop: 04/04/21 07:26 Ondansetron HCl (Ondansetron Inj 2 Mg/Ml 2 Ml Vial) 4 mg IV Q6H PRN PRN Reason: Nausea Stop: 04/04/21 07:26
[2021-03-10] MEDS ORDERED: FUROSEMIDE 40 MG in SYRINGE 0 ML IV ONE (14:30)
[2021-03-10] MEDS ORDERED: FLUCONAZOLE 50 MG TAB PO ONE (15:00)
[2021-03-11 07:55] LABS: Basophils # (auto) 0.01 K/uL (0-0.2); Basophils % (auto) 0.1 %; Eosinophils # (auto) 0.04 K/uL (0-0.5); Eosinophils % (auto) 0.3 %; Hematocrit (blood only) 44.7 % (37-47); Hemoglobin 14.9 g/dL (12.0-16.0); Immature Granulocytes # (auto) 0.08 K/uL (0.00-0.02); Immature Granulocytes % (auto) 0.5 %; Lymphocytes # (auto) 2.36 K/uL (1.2-3.4); Mean Corpuscular Hemoglobin 30.6 pg (25-34); Mean Corpuscular Hgb Conc 33.3 g/dL (32-36); Mean Corpuscular Volume 91.8 fL (80-100); Mean Platelet Volume 9.9 fL (7.4-10.4); Monocytes # (auto) 1.08 K/uL (0.11-0.59); Monocytes % (auto) 6.9 %; Neutrophils # (auto) 12.12 K/uL (1.4-6.5); Neutrophils % (auto) 77.2 %; Platelet Count 674 K/uL (130-400); RDW Coefficient of Variation 13.4 % (11.5-14.5); RDW Standard Deviation 44.8 fL (36.4-46.3); Red Blood Count 4.87 M/uL (4.2-5.4); White Blood Count 15.69 K/uL (4.8-10.8)
[2021-03-11 08:26] LABS: Albumin Level 2.4 gm/dl (3.4-5.0); BUN Creatinine Ratio 28.9 (10-20); C Reactive Protein 1.29 mg/dl (0-0.29); Calcium 8.4 mg/dl (8.5-10.1); Est GFR (African American) 113.4 ml/min; Est GFR (Non-African American) 97.8 ml/min; Potassium 3.5 mmol/L (3.5-5.1)
[2021-03-11 08:28] LABS: Albumin Globulin Ratio 0.6 (0.9-2); Bilirubin,Total 0.7 mg/dl (0.2-1); Globulin 3.7 gm/dl (2.5-4.0); Total Protein 6.1 gm/dl (6.4-8.2)
[2021-03-11] MEDS: ENOXAPARIN INJ 40 MG/0.4 ML SYR SQ SCH ×2 (08:45→21:27)
[2021-03-11] MEDS: dexAMETHasone 6 MG in SYRINGE 0 ML IV SCH (08:45)
[2021-03-11] MEDS: BENZONATATE 100 MG CAPSULE PO SCH ×3 (08:45→21:27)
[2021-03-11] MEDS: FLUTICASONE PROPIONATE NA SPR 16 GM BTL SCH (08:45)
[2021-03-11] MEDS: FLUTICASONE FUROATE 100MCG 14 PUFFS/INHALER INH SCH (08:46)
[2021-03-11] MEDS: guaiFENesin/DEXTROM SYRUP 200MG/20MG 10ML UDC PO PRN (08:49)
[2021-03-11] MEDS: INSULIN ASPART 100 UNITS/ML 3 ML PEN SC SCH ×4 (10:45→21:28)
[2021-03-11] MEDS: INSULIN GLARGINE SOLOSTAR 100 UNITS/ML 3 ML PEN SC SCH ×2 (10:45→21:31)
[2021-03-11] MEDS: INSULIN HUMAN NPH SC SCH (10:45)
--- NOTE | 2021-03-11 11:22 | Pharmacy Report ---
Pharmacy Glycemic Short Note 2 - Date of Service March 11, 2021 - Glycemic Short BSG Results (Last 24 hours): 03/10/21 03/10/21 03/11/21 16:31 20:42 07:31 Glucose 73 POC Glucose 305 H* 248 H 03/11/21 07:34 Glucose POC Glucose 71 OUTPATIENT ANTIDIABETIC REGIMEN: * Lantus TID * Pt is unsure of her insulin regimen. She states that she has been ill and isn't sure when she last took her insulin. She acknowledges that non-co mpliance is an issue. * HbA1c: 12.4% (03/05/21) ASSESSMENT: 03/11/21: * Patient received 174 units of insulin yesterday, with BSGs 84, 239, 305, 248 * 76 units of basal insulin with Lantus * 98 units of bolus insulin with Novolog * Lantus dose reduced slightly today in order to prevent AM hypoglycemia. * Novolog parameters tightened to provide better control throughout the day. Will consider increasing NPH tomorrow if daytime hyperglycemia persists while on high-dose steroids. Currently dosing NPH ~0.4units/kg, which is often adequate. * Novolog parameters will need to be loosened as soon as DXM is held or discontinued. 03/10 * Ms He is a 65yo diabetic female admitted on 03/04 with COVID/pneumonia. * Pt has been receiving IV dexamethasone, with steroid-induced hyperglycemia throughout admission. * Pharmacy consult placed last evening. * Pt received 144 units of insulin yesterday. * 45 units of basal insulin with Lantus * 99 units of bolus insulin with Novolog * NPH added this morning to provide additional coverage throughout the day while on high-dose steroids. * Novolog parameters were adjusted last evening to provide additional carb coverage. Will further tighten if glycemic control does not improve adequately. * Fasting BSG was near goal this morning (104mg/dL), so no adjustment to Lantus at this time. PLAN FOR INPATIENT GLYCEMIC CONTROL: * Hold outpatient oral diabetes medications * Basal insulin * Lantus 20 units SQ BID * NPH 36 units SQ qAM -- to be administered with daily DXM -- THIS SHOULD BE HELD IF DXM HELD/DISCONTINUED * Bolus insulin * NovoLog per scale ACHS or Q6hrs while NPO * Goal Range: Low 110 mg/dL - High 140 mg/dL * Correction Factor: 10 mg/dL/unit * Nutritional / Prandial insulin per carb ratio of 1 unit per 2 grams CHO consumed PLAN FOR DISCHARGE: * TBD
--- NOTE | 2021-03-11 17:04 | Hospitalist Progress Note ---
Date of Service March 11, 2021 Assessment & Plan (1) Acute respiratory failure with hypoxia: (2) Pneumonia due to 2019 novel coronavirus: (3) Asthma: Plan: 65-year-old female with PMH of asthma, DM, CHF and GERD presented to the ED 03/05 with cough and shortness of breath for 1 week [employer] and weak/tired for 2 weeks PT. She is currently being managed for the following: #. Acute hypoxic respiratory failure #. Pneumonia due to COVID-19 virus At presentation, had a severe and dry cough for 1 week [employer] IN[employer]. 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 Tested positive for Covid on 03/05 in the ED. CRP: 172.72 and 221.29; pro-Arnaldo negative, WBC elevatedcontinue to monitor. Has been requiring 4 to 6 L of nasal cannula oxygen, today feeling better, on 4 L nasal cannula oxygen. Wean down oxygen as tolerated. Continue with flutter valve/spirometry/nebs/supportive management. Prone as able. Lasix as needed to keep her on dry side. Her UO has not been recorded and hence cannot comment on I's and O's. Clinically could not appreciate crackles. No BLE edema. Status post remdesivir, on dexamethasone 03/05 Continue current care #. Asthma Continue home medication #. Diabetes Blood glucose under control, continue with SSI. Glycemic pharmacy on board. #. CHF No signs of fluid overload We will keep her on dry side. #. GERD: Continue PPI DVT prophylaxis: Subcutaneous Lovenox PT/OT Admission and Anticipated Discharge Date Admission Date: March 05, 2021 Subjective Patient was lying in bed, semiupright, on4 L nasal cannula oxygen, NAD, mildly anxious, no acute events overnight. Patient denies any headache/dizziness/increased shortness of breath/other review of symptoms. She is eating and moving bowel okay currently. Patient encouraged to use flutter valve and incentive spirometry. Patient states that she feels somewhat better today than yesterday. Physical Exam Physical Exam: GENERAL: Alert and oriented x3. NAD, on 4 L HEENT: No pallor, no icterus. Pupils equal, round and reactive to light. Oral mucosa moist. NECK: No JVD, no neck masses. HEART: S1 and S2 heard. Regular rate and rhythm. No murmur, no gallop. RESPIRATORY SYSTEM: Normal AP diameter. No accessory muscle use. No wheezing, no crackles. Decreased breath sounds bibasilar. Dry cough. ABDOMEN: Soft, bowel sounds present, nontender, no distention. CENTRAL NERVOUS SYSTEM: Alert and oriented x3. No facial droop. Speech is clear. Obeys simple commands. Moves extremities. EXTREMITIES: No edema, no erythema seen. Results & Data Results & Data ([facility]) Vital Signs (Past 12 Hours) Vital Signs Temp Pulse Pulse Resp BP Pulse Ox Pulse Ox 03/11/21 15:09 36.5 C 79 18 134/82 94 03/11/21 09:00 94 03/11/21 08:00 68 03/11/21 07:45 36.5 C 72 18 176/91 H 95
[2021-03-12] MEDS: guaiFENesin/DEXTROM SYRUP 200MG/20MG 10ML UDC PO PRN ×4 (00:52→22:56)
[2021-03-12] MEDS: dexAMETHasone 6 MG in SYRINGE 0 ML IV SCH (08:43)
[2021-03-12] MEDS: BENZONATATE 100 MG CAPSULE PO SCH ×3 (08:43→22:53)
[2021-03-12] MEDS: FLUTICASONE FUROATE 100MCG 14 PUFFS/INHALER INH SCH (08:44)
[2021-03-12] MEDS: ENOXAPARIN INJ 40 MG/0.4 ML SYR SQ SCH ×2 (08:44→22:53)
[2021-03-12] MEDS: FLUTICASONE PROPIONATE NA SPR 16 GM BTL SCH (08:44)
[2021-03-12 08:48] LABS: Hematocrit (blood only) 41.6 % (37-47); Hemoglobin 13.9 g/dL (12.0-16.0); Mean Corpuscular Hemoglobin 30.2 pg (25-34); Mean Corpuscular Hgb Conc 33.4 g/dL (32-36); Mean Corpuscular Volume 90.4 fL (80-100); Mean Platelet Volume 9.9 fL (7.4-10.4); Platelet Count 572 K/uL (130-400); RDW Coefficient of Variation 13.6 % (11.5-14.5); RDW Standard Deviation 44.2 fL (36.4-46.3); White Blood Count 14.78 K/uL (4.8-10.8)
[2021-03-12] MEDS ORDERED: FUROSEMIDE 20 MG in SYRINGE 0 ML IV ONE (09:00)
[2021-03-12] MEDS: INSULIN GLARGINE SOLOSTAR 100 UNITS/ML 3 ML PEN SC SCH ×2 (09:05→22:30)
[2021-03-12] MEDS: INSULIN ASPART 100 UNITS/ML 3 ML PEN SC SCH ×4 (09:05→22:30)
[2021-03-12] MEDS: INSULIN HUMAN NPH SC SCH (09:06)
--- NOTE | 2021-03-12 14:21 | Hospitalist Progress Note ---
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 She is currently being managed for the following: #. Acute hypoxic respiratory failure #. 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 Tested positive for Covid on 03/05 in the ED. CRP: 172.72 and 221.29; pro-Arnaldo negative, WBC elevatedcontinue to monitor. Has been requiring 4 to 6 L of nasal cannula oxygen, today feeling better, on 4 L nasal cannula oxygen. Patient feels better, clinically looks improved, cough getting better. Wean down oxygen as tolerated. Continue with flutter valve/spirometry/nebs/supportive management. Prone as able. Lasix as needed to keep her on dry side. Her UO has not been recorded and hence cannot comment on I's and O's. Clinically could not appreciate crackles. No BLE edema. Status post remdesivir, on dexamethasone 03/05 Continue current care #. Asthma Continue home medication #. Diabetes Blood glucose under control, continue with SSI. Glycemic pharmacy on board. #. CHF No signs of fluid overload We will keep her on dry side. #. GERD: Continue PPI DVT prophylaxis: Subcutaneous Lovenox PT/OT Disposition: Likely discharge to home possibly with home oxygen. Patient improving on oxygen, since there is a concern that she will also have to take care of her daughter who is currently in the hospital in the same room as hers, will reevaluate her tomorrow for possible discharge tomorrow. Admission and Anticipated Discharge Date Admission Date: March 05, 2021 Subjective Patient was lying in bed, semiupright, on 4 L nasal cannula oxygen, NAD, no acute events overnight. Patient looks better and reports feeling better today. Patient denies any headache/dizziness/increased shortness of breath/other review of symptoms. She is eating and moving bowel okay currently. Patient encouraged to use flutter valve and incentive spirometry. Physical Exam Physical Exam: GENERAL: Alert and oriented x3. NAD, on 4 L HEENT: No pallor, no icterus. Pupils equal, round and reactive to light. Oral mucosa moist. NECK: No JVD, no neck masses. HEART: S1 and S2 heard. Regular rate and rhythm. No murmur, no gallop. RESPIRATORY SYSTEM: Normal AP diameter. No accessory muscle use. No wheezing, no crackles. Decreased breath sounds bibasilarimproved somewhat. Dry cough seems improved. ABDOMEN: Soft, bowel sounds present, nontender, no distention. CENTRAL NERVOUS SYSTEM: Alert and oriented x3. No facial droop. Speech is clear. Obeys simple commands. Moves extremities. EXTREMITIES: No edema, no erythema seen. Results & Data Results & Data ([facility]) Vital Signs (Past 12 Hours) Vital Signs Temp Pulse Pulse Resp BP Pulse Ox 03/12/21 12:43 90 03/12/21 12:17 36.5 C 78 20 123/79 93 03/12/21 08:02 36.4 C L 75 20 142/82 H 90 03/12/21 07:21 61 03/12/21 04:00 36.6 C 68 20 108/54 L 93
[2021-03-12] MEDS ORDERED: Standard Conc 16mcg/mL; 8mg in 500mL IV SCH (22:15)
[2021-03-13] MEDS: ACETAMINOPHEN 325 MG TAB PO PRN (01:15)
[2021-03-13] MEDS: CARBOHYDRATES FOR HYPOGLYCEMIA PO PRN (06:23)
[2021-03-13] MEDS: BENZONATATE 100 MG CAPSULE PO SCH ×3 (08:31→21:18)
[2021-03-13] MEDS: dexAMETHasone 6 MG in SYRINGE 0 ML IV SCH (08:31)
[2021-03-13] MEDS: ENOXAPARIN INJ 40 MG/0.4 ML SYR SQ SCH ×2 (08:31→21:18)
[2021-03-13] MEDS: FLUTICASONE FUROATE 100MCG 14 PUFFS/INHALER INH SCH (08:31)
[2021-03-13] MEDS: FLUTICASONE PROPIONATE NA SPR 16 GM BTL SCH (08:32)
[2021-03-13 08:42] LABS: Hematocrit (blood only) 44.5 % (37-47); Hemoglobin 14.6 g/dL (12.0-16.0); Mean Corpuscular Hemoglobin 30.8 pg (25-34); Mean Corpuscular Hgb Conc 32.8 g/dL (32-36); Mean Corpuscular Volume 93.9 fL (80-100); Mean Platelet Volume 10.2 fL (7.4-10.4); Platelet Count 614 K/uL (130-400); RDW Coefficient of Variation 13.7 % (11.5-14.5); RDW Standard Deviation 47.1 fL (36.4-46.3); Red Blood Count 4.74 M/uL (4.2-5.4); White Blood Count 15.95 K/uL (4.8-10.8)
[2021-03-13] MEDS: INSULIN ASPART 100 UNITS/ML 3 ML PEN SC SCH ×4 (08:48→21:00)
[2021-03-13] MEDS: INSULIN GLARGINE SOLOSTAR 100 UNITS/ML 3 ML PEN SC SCH ×2 (08:49→21:00)
[2021-03-13] MEDS: INSULIN HUMAN NPH SC SCH (08:49)
[2021-03-13 09:09] LABS: BUN Creatinine Ratio 23.7 (10-20); Calcium 9.1 mg/dl (8.5-10.1); Creatinine Clr Calc Pharmacy 77.9 ml/min; Est GFR (African American) 101.9 ml/min; Est GFR (Non-African American) 87.9 ml/min; Magnesium 1.9 mg/dl (1.8-2.4); Potassium 3.7 mmol/L (3.5-5.1)
[2021-03-13] MEDS: guaiFENesin/DEXTROM SYRUP 200MG/20MG 10ML UDC PO PRN ×2 (10:15→17:05)
--- NOTE | 2021-03-13 11:48 | Pharmacy Report ---
Pharmacy Glycemic Short Note 2 - Date of Service March 13, 2021 - Glycemic Short BSG Results (Last 24 hours): 03/12/21 03/12/21 03/12/21 12:12 16:27 22:51 Glucose POC Glucose 124 H 223 H 131 H 03/13/21 03/13/21 03/13/21 04:44 06:16 06:37 Glucose 188 H POC Glucose 61 L* 74 03/13/21 03/13/21 08:10 10:59 Glucose POC Glucose 209 H 193 H OUTPATIENT ANTIDIABETIC REGIMEN: * Lantus TID * Pt is unsure of her insulin regimen. She states that she has been ill and isn't sure when she last took her insulin. She acknowledges that non- compliance is an issue. * HbA1c: 12.4% (03/05/21) ASSESSMENT: 03/13: * BSGs yesterday of 88, 124, 223, and 131 mg/dL * Received 180 units of insulin (72 units of basal and 108 units of prandial/correctional bolus) * Fasting BSG of 74 mg/dL this morning - will decrease Lantus * Patient likely to be discharged home today 03/11: * Patient received 174 units of insulin yesterday, with BSGs 84, 239, 305, 248 * 76 units of basal insulin with Lantus * 98 units of bolus insulin with Novolog * Lantus dose reduced slightly today in order to prevent AM hypoglycemia. * Novolog parameters tightened to provide better control throughout the day. W ill consider increasing NPH tomorrow if daytime hyperglycemia persists while on high-dose steroids. Currently dosing NPH ~0.4units/kg, which is often adequate. * Novolog parameters will need to be loosened as soon as DXM is held or discontinued. 03/10 * Ms He is a 65yo diabetic female admitted on 03/04 with COVID/pneumonia. * Pt has been receiving IV dexamethasone, with steroid-induced hyperglycemia throughout admission. * Pharmacy consult placed last evening. * Pt received 144 units of insulin yesterday. * 45 units of basal insulin with Lantus * 99 units of bolus insulin with Novolog * NPH added this morning to provide additional coverage throughout the day while on high-dose steroids. * Novolog parameters were adjusted last evening to provide additional carb coverage. Will further tighten if glycemic control does not improve adequately. * Fasting BSG was near goal this morning (104mg/dL), so no adjustment to Lantus at this time. PLAN FOR INPATIENT GLYCEMIC CONTROL: * Hold outpatient oral diabetes medications * Basal insulin * Lantus 15 units SQ BID * NPH 36 units SQ qAM -- to be administered with daily DXM -- THIS SHOULD BE HELD IF DXM HELD/DISCONTINUED * Bolus insulin * NovoLog per scale ACHS or Q6hrs while NPO * Goal Range: Low 110 mg/dL - High 140 mg/dL * Correction Factor: 10 mg/dL/unit * Nutritional / Prandial insulin per carb ratio of 1 unit per 2 grams CHO consumed PLAN FOR DISCHARGE: * HbA1c of 12.4% suggests very poor outpatient glycemic control * Discussed with inclusion special educator, patient agreeable to SC basal/bolus * Per provider, patient will be discharged with 2-3 more days of PO dexamethasone * While on dexamethasone - Lantus 50 units SC daily, Novolog 20 units SC TIDM * Unfortunately, all inpatient data has been with IV dexamethasone on board, so it is difficult to make optimal recommendations for discharge. Will err on side of caution and patient's desire to limit hypoglycemia. * Once steroids are discontinued, Lantus 30 units SC daily, Novolog 10 units SC TIDM * This regimen will almost certainly need to be adjusted in outpatient setting. Suggest consistent follow-up with PCP for further dose titrations * Patient should call PCP for dose adjustments if experiencing consistent BSGs greater than 300 mg/dL or less than 70 mg/dL * Support Patient Self-Management * Healthy Lifestyle (diet, exercise, and smoking cessation) * Disease self-management (SMBG) * Prevention of complications (BP, Lipid goals, Immunizations) * Consider outpatient Diabetes Self-Management Education & Support
--- NOTE | 2021-03-13 15:47 | Hospitalist Progress Note ---
Date of Service March 13, 2021 Assessment & Plan (1) Acute respiratory failure with hypoxia: (2) Pneumonia due to 2019 novel coronavirus: (3) Asthma: Plan: 65-year-old female with PMH of asthma, DM, CHF and GERD presented to the ED 03/05 with cough and shortness of breath for [address] [employer]GE and weak/tired for 2 weeks PT. She is currently being managed for the following: #. Acute hypoxic respiratory failure #. Pneumonia due to COVID-19 virus At presentation, had a severe and dry cough for [address]GE. 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 Tested positive for Covid on 03/05 in the ED. CRP: 172.72 and 221.29; pro-Arnaldo negative, WBC elevatedcontinue to monitor. Has been requiring 4 to 6 L of nasal cannula oxygen, today feeling better, on 2 L nasal cannula oxygen. Patient feels better, clinically looks improved, cough getting better. Wean down oxygen as tolerated. Continue with flutter valve/spirometry/nebs/supportive management. Prone as able. Lasix as needed to keep her on dry side. Her UO has not been recorded and hence cannot comment on I's and O's. Clinically could not appreciate crackles. No BLE edema. Status post remdesivir, on dexamethasone 03/05 Continue current care. #. Asthma Continue home medication #. Diabetes Blood glucose under control, continue with SSI. Glycemic pharmacy on board. Recommendation for outpatient diabetic management: While on dexamethasone - Lantus 50 units SC daily, Novolog 20 units SC TIDM Once steroids are discontinued, Lantus 30 units SC daily, Novolog 10 units SC TIDM This regimen will almost certainly need to be adjusted in outpatient setting. Suggest consistent follow-up with PCP for further dose titrations Patient should call PCP for dose adjustments if experiencing consistent BSGs greater than 300 mg/dL or less than 70 mg/dL #. CHF No signs of fluid overload We will keep her on dry side. #. GERD: Continue PPI DVT prophylaxis: Subcutaneous Lovenox PT/OT Disposition: Patient will need 2 step test prior to discharge to home, possibly tomorrow. Will provide a prescription once the test is completed. Patient requested to stay 1 more day due to her daughter being intubated last night and she wanted to stay closer to her. Her diabetic medication prescription will be sent to her pharmacy to assess the cost under her insurance. Admission and Anticipated Discharge Date Admission Date: March 05, 2021 Subjective Patient lying in bed, on 2 L nasal cannula oxygen, NAD, was not able to sleep overnight due to worry about her daughter being intubated last night. Patient feels tired and appears sad. Patient requesting to stay 1 more day so that she can be closer to her daughter. She is eating and moving bowel okay currently. Patient encouraged to use flutter valve and incentive spirometry. Patient reports feeling better respiratory jj. Physical Exam Physical Exam: GENERAL: Alert and oriented x3. NAD, on 2 L HEENT: No pallor, no icterus. Pupils equal, round and reactive to light. Oral mucosa moist. NECK: No JVD, no neck masses. HEART: S1 and S2 heard. Regular rate and rhythm. No murmur, no gallop. RESPIRATORY SYSTEM: Normal AP diameter. No accessory muscle use. No wheezing, no crackles. Decreased breath sounds bibasilarimproved somewhat. Dry cough seems improved. ABDOMEN: Soft, bowel sounds present, nontender, no distention. CENTRAL NERVOUS SYSTEM: Alert and oriented x3. No facial droop. Speech is clear. Obeys simple commands. Moves extremities. EXTREMITIES: No edema, no erythema seen. Results & Data Results & Data ([facility]) Vital Signs (Past 12 Hours) Vital Signs Temp Pulse Resp BP Pulse Ox 03/13/21 10:50 36.5 C 76 18 119/77 92 03/13/21 10:19 91 03/13/21 08:16 36.8 C 87 22 125/73 90
[2021-03-13] MEDS: ALBUTEROL HFA 8 GM INHALER INH PRN (21:55)
[2021-03-13] MEDS: MELATONIN 3 MG TAB PO PRN (22:21)
[2021-03-14] MEDS: guaiFENesin/DEXTROM SYRUP 200MG/20MG 10ML UDC PO PRN ×3 (03:26→16:27)
[2021-03-14 05:54] LABS: Hematocrit (blood only) 40.3 % (37-47); Hemoglobin 13.3 g/dL (12.0-16.0); Mean Corpuscular Hemoglobin 30.2 pg (25-34); Mean Corpuscular Volume 91.4 fL (80-100); Mean Platelet Volume 9.9 fL (7.4-10.4); Platelet Count 528 K/uL (130-400); RDW Coefficient of Variation 13.9 % (11.5-14.5); RDW Standard Deviation 46.1 fL (36.4-46.3); Red Blood Count 4.41 M/uL (4.2-5.4); White Blood Count 16.52 K/uL (4.8-10.8)
[2021-03-14] MEDS: dexAMETHasone 6 MG in SYRINGE 0 ML IV SCH (08:32)
[2021-03-14] MEDS: BENZONATATE 100 MG CAPSULE PO SCH ×3 (08:32→20:45)
[2021-03-14] MEDS: ENOXAPARIN INJ 40 MG/0.4 ML SYR SQ SCH ×2 (08:32→20:45)
[2021-03-14] MEDS: FLUTICASONE FUROATE 100MCG 14 PUFFS/INHALER INH SCH (08:33)
[2021-03-14] MEDS: FLUTICASONE PROPIONATE NA SPR 16 GM BTL SCH (08:33)
[2021-03-14] MEDS: INSULIN HUMAN NPH SC SCH (09:01)
[2021-03-14] MEDS: INSULIN ASPART 100 UNITS/ML 3 ML PEN SC SCH ×4 (09:02→21:45)
[2021-03-14] MEDS: INSULIN GLARGINE SOLOSTAR 100 UNITS/ML 3 ML PEN SC SCH ×2 (09:29→21:45)
[2021-03-14] MEDS ORDERED: FUROSEMIDE 20 MG in SYRINGE 0 ML IV ONE (11:00)
[2021-03-14] MEDS ORDERED: LORazepam 0.5 MG TAB PO ONE (11:52)
--- NOTE | 2021-03-14 12:29 | Hospitalist Progress Note ---
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 She is currently being managed for the following: #. Acute hypoxic respiratory failure #. 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 Tested positive for Covid on 03/05 in the ED. CRP: 172.72 and 221.29; pro-Arnaldo negative, WBC elevatedcontinue to monitor. Has been requiring 4 to 6 L of nasal cannula oxygen, today feeling better, on 2 L nasal cannula oxygen. Patient feels tired, requiring more oxygen today, has more dry cough today. Use supplemental oxygen and titrate as needed. Continue with flutter valve/spirometry/nebs/supportive management. Prone as able. Lasix as needed to keep her on dry side. Her UO has not been recorded and hence cannot comment on I's and O's. Clinically could not appreciate crackles. No BLE edema. Status post remdesivir, on dexamethasone 03/05 Get an x-ray chestfollow-up. #. Asthma Continue home medication #. Diabetes Blood glucose under control, continue with SSI. Glycemic pharmacy on board. Recommendation for outpatient diabetic management: While on dexamethasone - Lantus 50 units SC daily, Novolog 20 units SC TIDM Once steroids are discontinued, Lantus 30 units SC daily, Novolog 10 units SC TIDM Her above recommendation cost $105-$210 for patient which she cannot afford. Will request pharmacy to come up with a plan for ReliOn/Novolin 70/30 insulin which he can get from [facility] for $43. We will send the recommendation to [facility] in [place] once I get. I am instructed to put "substitute ReliOn brand" in the prescription. #. CHF No signs of fluid overload We will keep her on dry side. #. GERD: Continue PPI DVT prophylaxis: Subcutaneous Lovenox PT/OT Disposition: Patient will need 2 step test prior to discharge to home, possibly tomorrow. Will provide a prescription once the test is completed. Patient requested to stay 1 more day due to her daughter being intubated last night and she wanted to stay closer to her. Her diabetic medication prescription will be sent to her pharmacy to assess the cost under her insurance. Admission and Anticipated Discharge Date Admission Date: March 05, 2021 Subjective Patient lying in bed, oxygen requirement has increased today to 4 L from 2 L yesterday, patient feels more tired and is not able to sleep, on examination chest did not sound as good as yesterday, mild distress. Patient appears to have more dry cough at bedside exam than yesterday. She is eating and moving bowel okay though. Patient encouraged to use flutter valve and incentive spirometry. Physical Exam Physical Exam: GENERAL: Alert and oriented x3. NAD, on 4 L HEENT: No pallor, no icterus. Pupils equal, round and reactive to light. Oral mucosa moist. NECK: No JVD, no neck masses. HEART: S1 and S2 heard. Regular rate and rhythm. No murmur, no gallop. RESPIRATORY SYSTEM: Normal AP diameter. No accessory muscle use. No wheezing, no crackles. Decreased breath soundsmore than yesterday. Dry coughmore than yesterday. ABDOMEN: Soft, bowel sounds present, nontender, no distention. CENTRAL NERVOUS SYSTEM: Alert and oriented x3. No facial droop. Speech is clear. Obeys simple commands. Moves extremities. EXTREMITIES: No edema, no erythema seen. Results & Data Results & Data ([facility]) Vital Signs (Past 12 Hours) Vital Signs Temp Pulse Pulse Resp BP BP Pulse Ox 03/14/21 11:32 36.3 C L 85 22 129/75 91 03/14/21 08:45 36.4 C L 80 22 132/77 88 L 03/14/21 08:40 36.3 C L 74 18 134/86 93 03/14/21 06:17 71 03/14/21 03:00 36.6 C 71 18 144/90 H 91 03/14/21 01:10 100 H
--- NOTE | 2021-03-14 13:02 | XRay Report ---
XR chest 1V portable HISTORY: 65 years-old Female increasing O2 req, f/u CXR acute hypoxia COMPARISON: Chest radiograph and CTA chest 03/04/2021 TECHNIQUE: Portable AP view of the chest FINDINGS: Cardiac silhouette is enlarged. Right IJ central venous catheter is unchanged. No pneumothorax or ple ural effusion. Mildly progressed bilateral subpleural predominant airspace opacities. No acute fractu re. IMPRESSION: Mildly progressed bilateral pulmonary opacities suggestive of multifocal pneumonia. ACT 112: Negative or not required by law. The above report was generated using voice recognition software. It may contain grammatical, syntax o r spelling errors. Electronically signed by: Jessee Llamas M.D. 03/14/2021 1:01 PM
[2021-03-15 06:42] LABS: Hematocrit (blood only) 41.1 % (37-47); Hemoglobin 13.5 g/dL (12.0-16.0); Mean Corpuscular Hemoglobin 30.1 pg (25-34); Mean Corpuscular Hgb Conc 32.8 g/dL (32-36); Mean Corpuscular Volume 91.7 fL (80-100); Platelet Count 542 K/uL (130-400); RDW Standard Deviation 46.7 fL (36.4-46.3); Red Blood Count 4.48 M/uL (4.2-5.4)
[2021-03-15] MEDS ORDERED: FUROSEMIDE 20 MG in SYRINGE 0 ML IV ONE (08:17)
[2021-03-15] MEDS: CARBOHYDRATES FOR HYPOGLYCEMIA PO PRN (08:19)
[2021-03-15] MEDS: FLUTICASONE FUROATE 100MCG 14 PUFFS/INHALER INH SCH (08:21)
[2021-03-15] MEDS: BENZONATATE 100 MG CAPSULE PO SCH ×3 (08:22→20:18)
[2021-03-15] MEDS: FLUTICASONE PROPIONATE NA SPR 16 GM BTL SCH (08:22)
[2021-03-15] MEDS: INSULIN ASPART 100 UNITS/ML 3 ML PEN SC SCH ×4 (08:50→20:18)
[2021-03-15] MEDS ORDERED: INSULIN HUMAN NPH SC SCH (09:00)
[2021-03-15] MEDS ORDERED: FUROSEMIDE 40 MG/4 ML VIAL IV ONE (09:00)
[2021-03-15] MEDS: dexAMETHasone 4 MG TAB PO SCH (10:34)
[2021-03-15] MEDS: ENOXAPARIN INJ 40 MG/0.4 ML SYR SQ SCH ×2 (10:41→20:18)
--- NOTE | 2021-03-15 12:15 | Hospitalist Progress Note ---
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 She is currently being managed for the following: #. Acute hypoxic respiratory failure #. 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 Tested positive for Covid on 03/05 in the ED. CRP: 172.72 and 260.5; pro-Arnaldo negative, WBC elevatedstable around 15-16 K Patient was able to wean down to 2 L oxygen 03/13, has been requiring 4 to 5 oxygen since then. Also patient dry cough has increased since 03/13. Continue with flutter valve/spirometry/nebs/supportive management. Prone as able. Lasix as needed to keep her on dry side. Her UO has not been recorded and hence cannot comment on I's and O's. Clinically could not appreciate crackles. No BLE edema. Patient making urine. Status post remdesivir, on dexamethasone 03/05, continue with dexamethasone until patient improves. Follow-up CXR as needed. #. Asthma Continue home medication #. Diabetes Blood glucose difficult to control, continue with SSI per glycemic pharmacy. Glycemic pharmacy on board. Recommendation for outpatient diabetic management: While on dexamethasone - Lantus 50 units SC daily, Novolog 20 units SC TIDM Once steroids are discontinued, Lantus 30 units SC daily, Novolog 10 units SC TIDM Her above recommendation cost $105-$210 for patient which she cannot afford. Will request pharmacy to come up with a plan for ReliOn/Novolin 70/30 insulin which he can get from [facility] for $43. We will send the recommendation to [facility] in [place] once I get recs from glycemic pharmacy. I am instructed to put "substitute ReliOn brand" in the prescription. #. CHF No signs of fluid overload We will keep her on dry side. #. GERD: Continue PPI DVT prophylaxis: Subcutaneous Lovenox PT/OT Disposition: Patient will need 2 step test prior to discharge to home. Will pro vide a prescription once the test is completed. Patient needing more oxygen, looks like she will be here for a few more days until she shows signs of improvement. Continue PT/OT. Admission and Anticipated Discharge Date Admission Date: March 05, 2021 Subjective Patient lying in bed, oxygen requirement has increased today to 5 L from 4 L yesterday, patient feels tired. Patient appears to have more dry cough at bedside exam. She is eating and moving bowel okay though. Patient encouraged to use flutter valve and incentive spirometry. NAD, denies other review of symptoms. Physical Exam Physical Exam: GENERAL: Alert and oriented x3. NAD, on 5 L HEENT: No pallor, no icterus. Pupils equal, round and reactive to light. Oral mucosa moist. NECK: No JVD, no neck masses. HEART: S1 and S2 heard. Regular rate and rhythm. No murmur, no gallop. RESPIRATORY SYSTEM: Normal AP diameter. No accessory muscle use. No wheezing, no crackles. Decreased breath sounds. Dry cough. ABDOMEN: Soft, bowel sounds present, nontender, no distention. CENTRAL NERVOUS SYSTEM: No facial droop. Speech is clear. Obeys simple commands. Moves extremities. EXTREMITIES: No edema, no erythema seen. Results & Data Results & Data ([facility]) Vital Signs (Past 12 Hours) Vital Signs Temp Pulse Pulse Resp BP BP Pulse Ox 03/15/21 10:42 36.5 C 68 16 138/64 90 03/15/21 08:41 36.6 C 92 H 18 119/67 90 03/15/21 07:23 71 03/15/21 03:48 37.2 C 92 H 18 152/90 H 91
--- NOTE | 2021-03-15 14:51 | Pharmacy Report ---
Pharmacy Glycemic Short Note 2 - Date of Service March 15, 2021 - Glycemic Short BSG Results (Last 24 hours): 03/14/21 03/14/21 03/15/21 16:29 20:44 08:15 POC Glucose 272 H 228 H 63 L* 03/15/21 03/15/21 08:34 12:47 POC Glucose 78 217 H OUTPATIENT ANTIDIABETIC REGIMEN: * Lantus TID * Pt is unsure of her insulin regimen. She states that she has been ill and isn't sure when she last took her insulin. She acknowledges that non-co mpliance is an issue. * HbA1c: 12.4% (03/05/21) ASSESSMENT: 03/15: * Zaira received 129 units of SQ of insulin yesterday: * 30 units of Lantus, 36 units of NPH, 63 units of NovoLog * patient refused insulin at lunchtime * Fasting BSG of 63 mg/dL is below goal, therefore AM Lantus was held. Will resume BID dosing at dinnertime. * Patient experienced post prandial BSG elevation yesterday evening (272 at dinner, 228 mg/dL at HS) after novolog was loosened for lunch BSG of 89. I will continue current novolog order since DXM was changed from IV to PO (anticipate insulin needs to decrease). I will decrease NPH. * Of note, RN called today to report lunch BSG drawn after patient finished her meal - instructed to cover carbs only. Unable to determine if current CF/CR is appropriate. 03/13: * BSGs yesterday of 88, 124, 223, and 131 mg/dL * Received 180 units of insulin (72 units of basal and 108 units of prandial/correctional bolus) * Fasting BSG of 74 mg/dL this morning - will decrease Lantus * Patient likely to be discharged home today 03/11: * Patient received 174 units of insulin yesterday, with BSGs 84, 239, 305, 248 * 76 units of basal insulin with Lantus * 98 units of bolus insulin with Novolog * Lantus dose reduced slightly today in order to prevent AM hypoglycemia. * Novolog parameters tightened to provide better control throughout the day. Will consider increasing NPH tomorrow if daytime hyperglycemia persists while on high-dose steroids. Currently dosing NPH ~0.4units/kg, which is often adequate. * Novolog parameters will need to be loosened as soon as DXM is held or discontinued. 03/10 * Ms He is a 65yo diabetic female admitted on 03/04 with COVID/pneumonia. * Pt has been receiving IV dexamethasone, with steroid-induced hyperglycemia throughout admission. * Pharmacy consult placed last evening. * Pt received 144 units of insulin yesterday. * 45 units of basal insulin with Lantus * 99 units of bolus insulin with Novolog * NPH added this morning to provide additional coverage throughout the day while on high-dose steroids. * Novolog parameters were adjusted last evening to provide additional carb coverage. Will further tighten if glycemic control does not improve adequately. * Fasting BSG was near goal this morning (104mg/dL), so no adjustment to Lantus at this time. PLAN FOR INPATIENT GLYCEMIC CONTROL: * Hold outpatient oral diabetes medications * Basal insulin * Lantus held this morning, then resume 8-15 units SQ BID * Decrease NPH to 18 units SQ qAM -- to be administered while pt is on DXM * Bolus insulin * NovoLog per scale ACHS or Q6hrs while NPO * Goal Range: Low 110 mg/dL - High 140 mg/dL * Correction Factor: 15 mg/dL/unit * Nutritional / Prandial insulin per carb ratio of 1 unit per 4 grams CHO consumed PLAN FOR DISCHARGE: * HbA1c of 12.4% suggests very poor outpatient glycemic control * Discussed with patient care representative, patient agreeable to SC basal/bolus * Per provider, patient will be discharged with 2-3 more days of PO dexamethasone * While on dexamethasone - Lantus 50 units SC daily, Novolog 20 units SC TIDM * Unfortunately, all inpatient data has been with IV dexamethasone on board, so it is difficult to make optimal recommendations for discharge. Will err on side of caution and patient's desire to limit hypoglycemia. * Once steroids are discontinued, Lantus 30 units SC daily, Novolog 10 units SC TIDM * This regimen will almost certainly need to be adjusted in outpatient setting. Suggest consistent follow-up with PCP for further dose titrations * Patient should call PCP for dose adjustments if experiencing consistent BSGs greater than 300 mg/dL or less than 70 mg/dL * Support Patient Self-Management * Healthy Lifestyle (diet, exercise, and smoking cessation) * Disease self-management (SMBG) * Prevention of complications (BP, Lipid goals, Immunizations) * Consider outpatient Diabetes Self-Management Education & Support
[2021-03-15] MEDS: INSULIN GLARGINE SOLOSTAR 100 UNITS/ML 3 ML PEN SC SCH (17:46)
[2021-03-15] MEDS: MELATONIN 3 MG TAB PO PRN (20:18)
[2021-03-16] MEDS: INSULIN ASPART 100 UNITS/ML 3 ML PEN SC SCH ×7 (00:30→21:05)
[2021-03-16 06:46] LABS: Hematocrit (blood only) 41.7 % (37-47); Hemoglobin 13.6 g/dL (12.0-16.0); Mean Corpuscular Hemoglobin 30.2 pg (25-34); Mean Corpuscular Hgb Conc 32.6 g/dL (32-36); Mean Corpuscular Volume 92.5 fL (80-100); Mean Platelet Volume 9.8 fL (7.4-10.4); Platelet Count 498 K/uL (130-400); RDW Coefficient of Variation 13.8 % (11.5-14.5); RDW Standard Deviation 46.9 fL (36.4-46.3); Red Blood Count 4.51 M/uL (4.2-5.4); White Blood Count 15.73 K/uL (4.8-10.8)
[2021-03-16 07:14] LABS: BUN Creatinine Ratio 35.2 (10-20); Calcium 8.2 mg/dl (8.5-10.1); Creatinine Clr Calc Pharmacy 105.9 ml/min; Est GFR (African American) 115.5 ml/min; Est GFR (Non-African American) 99.6 ml/min; Potassium 4.2 mmol/L (3.5-5.1)
[2021-03-16] MEDS: FUROSEMIDE 20 MG in SYRINGE 0 ML IV ONE ×2 (08:57→10:26)
[2021-03-16] MEDS: BENZONATATE 100 MG CAPSULE PO SCH ×3 (08:57→21:17)
[2021-03-16] MEDS: dexAMETHasone 4 MG TAB PO SCH (08:58)
[2021-03-16] MEDS: ENOXAPARIN INJ 40 MG/0.4 ML SYR SQ SCH ×2 (08:59→21:02)
[2021-03-16] MEDS: FLUTICASONE PROPIONATE NA SPR 16 GM BTL SCH (09:00)
[2021-03-16] MEDS: FLUTICASONE FUROATE 100MCG 14 PUFFS/INHALER INH SCH (09:00)
[2021-03-16] MEDS ORDERED: INSULIN GLARGINE SOLOSTAR 100 UNITS/ML 3 ML PEN SC SCH (09:00)
[2021-03-16] MEDS ORDERED: INSULIN HUMAN NPH SC SCH ×2 (09:00)
[2021-03-16] MEDS: guaiFENesin/DEXTROM SYRUP 200MG/20MG 10ML UDC PO PRN (09:01)
--- NOTE | 2021-03-16 11:53 | Pharmacy Report ---
Pharmacy Glycemic Short Note 2 - Date of Service March 16, 2021 - Glycemic Short BSG Results (Last 24 hours): 03/15/21 03/15/21 03/15/21 12:47 17:00 17:02 Glucose POC Glucose 217 H 311 H* 293 H 03/15/21 03/15/21 03/16/21 20:06 23:53 03:53 Glucose POC Glucose 312 H* 219 H 89 03/16/21 03/16/21 03/16/21 06:28 07:55 11:19 Glucose 83 POC Glucose 81 133 H OUTPATIENT ANTIDIABETIC REGIMEN: * Lantus TID * Pt is unsure of her insulin regimen. She states that she has been ill and isn't sure when she last took her insulin. She acknowledges that non- compliance is an issue. * HbA1c: 12.4% (03/05/21) ASSESSMENT: 03/16: * 105 units SQ insulin given in last 24 hours * Fasting BSG 81 this AM w/ 15 units Lantus + 18 units NPH give yesterday. Will decrease Lantus dose secondary to fasting BSG less than 100 and only dose in the AM. * Post-prandial BSGs elevated yesterday however BSGs were taken after meals in 2 of 3 checks. Prior BSG checks on 03/14 also showed post-prandial hyperglycemia however. Will escalate NPH and prandial Novolog doses w/ meals but decrease HS coverage to lessen risk of fasting hypoglycemia. * Today is the 2nd day of PO dexamethasone, she may be less insulin resistant. Will monitor BSG trend closely. 03/15: * Zaira received 129 units of SQ of insulin yesterday: * 30 units of Lantus, 36 units of NPH, 63 units of NovoLog * patient refused insulin at lunchtime * Fasting BSG of 63 mg/dL is below goal, therefore AM Lantus was held. Will resume BID dosing at dinnertime. * Patient experienced post prandial BSG elevation yesterday evening (272 at dinner, 228 mg/dL at HS) after novolog was loosened for lunch BSG of 89. I will continue current novolog order since DXM was changed from IV to PO (anticipate insulin needs to decrease). I will decrease NPH. * Of note, RN called today to report lunch BSG drawn after patient finished her meal - instructed to cover carbs only. Unable to determine if current CF/CR is appropriate. PLAN FOR INPATIENT GLYCEMIC CONTROL: * Hold outpatient oral diabetes medications * Basal insulin * Decrease Lantus to 12 units Q AM only * Increase NPH to 24 units SQ qAM -- to be administered while pt is on DXM * Bolus insulin * NovoLog per scale ACHS or Q6hrs while NPO * Goal Range: Low 90 mg/dL - High 140 mg/dL * Correction Factor: 12 mg/dL/unit with meals; 25mg/dL/unit at HS (only correct at HS if above 180) * Nutritional / Prandial insulin per carb ratio of 1 unit per 3 grams CHO consumed w/ meals; 1 unit per 6 grams CHO at HS PLAN FOR DISCHARGE: * HbA1c of 12.4% suggests very poor outpatient glycemic control * Discussed with clinical nurse educator has requested patient be discharged on ReliO n/Novolin 70/30 insulin on discharge * Per provider, patient will be discharged with 2-3 more days of PO dexamethasone * While on dexamethasone 4mg PO daily: 70/30 insulin 40 units w/ breakfast + 20 units w/ dinner * Unfortunately, all inpatient data has been with IV dexamethasone on board, so it is difficult to make optimal recommendations for discharge. Will err on side of caution and patient's desire to limit hypoglycemia. * Once steroids are discontinued: 70/30 insulin 30 units w/ breakfast + 15 units w/ dinner * This regimen will almost certainly need to be adjusted in outpatient setting. Suggest consistent follow-up with PCP for further dose titrations. Machine Printer Hose will f/u with patient via phone to assist with monitor and dose titration. * Patient should call PCP for dose adjustments if experiencing consistent BSGs greater than 300 mg/dL or less than 70 mg/dL * Support Patient Self-Management * Healthy Lifestyle (diet, exercise, and smoking cessation) * Disease self-management (SMBG) * Prevention of complications (BP, Lipid goals, Immunizations) * Consider outpatient Diabetes Self-Management Education & Support
--- NOTE | 2021-03-16 13:29 | XRay Report ---
XR chest 1V portable HISTORY: Shortness of breath. COMPARISON: Chest 03/14/2021. FINDINGS: No pneumothorax. The heart remains mildly enlarged. There is a right jugular Port-A-Cath wh ich was at the SVC. Peripheral predominant airspace opacities persist. This is most pronounced within the lower lung zones. No evidence for pulmonary edema. IMPRESSION: No change in the peripheral prominent multifocal airspace opacities consistent with a viral pneumonia . ACT 112: Negative or not required by law. Electronically signed by: Caden Dietrich M.D. 03/16/2021 1:28 PM
--- NOTE | 2021-03-16 13:35 | Hospitalist Progress Note ---
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 She is currently being managed for the following: #. Acute hypoxic respiratory failure #. 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 Tested positive for Covid on 03/05 in the ED. CRP: 172.72 and 260.5; pro-Arnaldo negative, WBC elevatedstable around 15-16 K Patient was able to wean down to 2 L oxygen 03/13, has been requiring 4 to 5 oxygen since then. Also patient dry cough has increased since 03/13. Continue with flutter valve/spirometry/nebs/supportive management. Prone as able. Lasix as needed to keep her on dry side. Her UO has not been recorded and hence cannot comment on I's and O's. Clinically could not appreciate crackles. No BLE edema. Patient making urine. Status post remdesivir, on dexamethasone 03/05, continue with dexamethasone until patient improves. Follow-up CXR as needed. #. Asthma Continue home medication #. Diabetes Blood glucose difficult to control, continue with SSI per glycemic pharmacy. Glycemic pharmacy on board. Recommendation for outpatient diabetic management: While on dexamethasone - Lantus 50 units SC daily, Novolog 20 units SC TIDM Once steroids are discontinued, Lantus 30 units SC daily, Novolog 10 units SC TIDM Her above recommendation cost $105-$210 for patient which she cannot afford. Will request pharmacy to come up with a plan for ReliOn/Novolin 70/30 insulin which he can get from [facility] for $43. We will send the recommendation to [facility] in [place] once I get recs from glycemic pharmacy. I am instructed to put "substitute ReliOn brand" in the prescription. Glycemic pharmacy contacted regarding recommendation with ReliOn. #. CHF No signs of fluid overload We will keep her on dry side. #. GERD: Continue PPI DVT prophylaxis: Subcutaneous Lovenox PT/OT Disposition: Patient will need 2 step test prior to discharge to home. Will pro vide a prescription once the test is completed. Patient needing more oxygen, looks like she will be here for a few more days until she shows signs of improvement. Continue PT/OT. Admission and Anticipated Discharge Date Admission Date: March 05, 2021 Subjective Patient lying in bed, on 4 L from 5 L yesterday, patient feels somewhat better. Patient appears to have some dry cough at bedside exam which seems to decreased. She is eating and moving bowel okay though. Patient encouraged to use flutter valve and incentive spirometry. NAD, denies other review of symptoms. Physical Exam Physical Exam: GENERAL: Alert and oriented x3. NAD, on 4 L HEENT: No pallor, no icterus. Pupils equal, round and reactive to light. Oral mucosa moist. NECK: No JVD, no neck masses. HEART: S1 and S2 heard. Regular rate and rhythm. No murmur, no gallop. RESPIRATORY SYSTEM: Normal AP diameter. No accessory muscle use. No wheezing, no crackles. Decreased breath soundsimproving. Dry coughimproving. ABDOMEN: Soft, bowel sounds present, nontender, no distention. CENTRAL NERVOUS SYSTEM: No facial droop. Speech is clear. Obeys simple commands. Moves extremities. EXTREMITIES: No edema, no erythema seen. Results & Data Results & Data ([facility]) Vital Signs (Past 12 Hours) Vital Signs Temp Pulse Pulse Resp BP Pulse Ox Pulse Ox 03/16/21 09:58 90 03/16/21 08:07 36.8 C 73 20 154/87 H 94 03/16/21 07:32 61
[2021-03-16] MEDS ORDERED: POLYETHYLENE (MIRALAX) 17 GM PACK PO PRN (20:13)
[2021-03-16] MEDS: DOCUSATE SODIUM/SENNA 50/8.6MG TAB PO SCH (20:52)
[2021-03-17] MEDS ORDERED: FUROSEMIDE 20 MG in SYRINGE 0 ML IV ONE ×2 (07:45→17:30)
[2021-03-17] MEDS: dexAMETHasone 4 MG TAB PO SCH (07:47)
[2021-03-17] MEDS: BENZONATATE 100 MG CAPSULE PO SCH ×3 (07:47→21:03)
[2021-03-17] MEDS: FLUTICASONE FUROATE 100MCG 14 PUFFS/INHALER INH SCH (07:48)
[2021-03-17] MEDS: ENOXAPARIN INJ 40 MG/0.4 ML SYR SQ SCH ×2 (07:48→21:03)
[2021-03-17] MEDS: FLUTICASONE PROPIONATE NA SPR 16 GM BTL SCH (07:49)
[2021-03-17] MEDS: DOCUSATE SODIUM/SENNA 50/8.6MG TAB PO SCH ×2 (07:49→21:03)
[2021-03-17] MEDS: IPRATROPIUM BROMIDE NEB SOLN 0.02% 2.5 ML VIAL NEB PRN (08:39)
[2021-03-17] MEDS: LEVALBUTEROL 1.25MG/0.5ML NEB NEB PRN (08:39)
[2021-03-17] MEDS ORDERED: INSULIN GLARGINE SOLOSTAR 100 UNITS/ML 3 ML PEN SC SCH (09:00)
[2021-03-17] MEDS ORDERED: INSULIN HUMAN NPH SC SCH (09:00)
[2021-03-17] MEDS: INSULIN ASPART 100 UNITS/ML 3 ML PEN SC SCH ×5 (09:01→21:26)
[2021-03-17 09:14] LABS: Hematocrit (blood only) 43.7 % (37-47); Hemoglobin 14.5 g/dL (12.0-16.0); Mean Corpuscular Hemoglobin 30.9 pg (25-34); Mean Corpuscular Hgb Conc 33.2 g/dL (32-36); Mean Platelet Volume 10.2 fL (7.4-10.4); Platelet Count 531 K/uL (130-400); RDW Standard Deviation 47.8 fL (36.4-46.3); White Blood Count 14.84 K/uL (4.8-10.8)
--- NOTE | 2021-03-17 10:22 | XRay Report ---
SINGLE VIEW CHEST CLINICAL HISTORY: Hypoxia. FINDINGS: An AP, portable, upright chest radiograph is compared to study dated 03/16/2021 and correlat ed with chest CT dated 03/04/2021. A right internal jugular central venous catheter is unchanged in po sition. The heart is enlarged noting atherosclerotic calcification of the thoracic aorta. Multifocal airspace consolidation is unchanged from yesterday. Small pleural effusions are noted. No pneumothora x is seen. The skeletal structures are osteopenic. The bony thorax is grossly intact. No intrathecal leads projects over the lower thoracic region. IMPRESSION: 1. Multifocal airspace consolidation is unchanged from yesterday. 2. Small pleural effusions are noted. ACT 112: Negative or not required by law. Electronically signed by: Hu Lee M.D. 03/17/2021 10:21 AM
[2021-03-17] MEDS ORDERED: FUROSEMIDE 40 MG in SYRINGE 0 ML IV ONE (10:23)
--- NOTE | 2021-03-17 10:31 | Pulmonary Consultation ---
Date of Consultation March 17, 2021 Assessment & Plan (1) Acute respiratory failure with hypoxia: (2) Pneumonia due to 2019 novel coronavirus: (3) Asthma: CT chest 03/05/2021 personally reviewed: Diffuse patchy groundglass alveolar opacities appreciated bilaterally upper and lower lobe Cardiomegaly No mediastinal lymphadenopathy Chest x-ray 03/09/2021 personally reviewed: Worsening of bilateral opacities bilateral lower lobes, Bilateral blunting of costophrenic angles --Acute hypoxic respiratory failure Secondary to multilobar COVID-19 pneumonia COVID-19 PCR positive 03/05/2021 CRP 2.72 --> 0.5 Procalcitonin <0.05 03/14/21 --> 0.07 BNP 64 S/p remdesivir Continue with O2 supplementation to keep oxygen saturation between 90-92%. Awake proning will be helpful Continue with incentive spirometry Continue with flutter valve. Recommend patient to be kept euvolemic to negative balance --Probable PARRIS Trial of BiPAP/CPAP nightly Plan: Patient is +8 L since coming to the hospital. Although we do not have a strict output. Strict in and out starting today. Patient will not benefit from baricitinib. Would like to keep the patient negative balance Awake proning as well as incentive spirometry We will consider antibiotics based on the repeat procalcitonin. Case was discussed with Dr. Vincent Please note the above document was generated using voice recognition software. It may contain grammatical, syntax or spelling errors.Any formal questions or concerns about the content, text or information contained within the body of this dictation should be directly addressed to the provider for clarification. History of Present Illness Attending Physician: Jean Vincent MD History of Present Illness 65-year-old female past medical history of diabetes, asthma: Obesity admitted to the hospital on 03/05/2021 because of cough and shortness of breath. Patient was found to be Covid positive Patient has completed the course of remdesivir. She still on dexamethasone. Pulmonary consulted because of increasing oxygen requirement At the time of examination patient was saturating 94% on 9 L nasal cannula. I went down to 4 L while talking and examining the patient she was still able to maintain the saturation to 91-92% Patient did state that she was anxious as her daughter is also admitted the hospital. Her daughter was intubated she has been extubated for more than 2 days. I did reassure her that having the tube out is always a good sign Patient said that she is feeling better after hearing that already. She has been bringing up clear phlegm denies any hemoptysis She does snore at night. No nausea or vomiting. Area. Social history: Approximately [id number] smoking history quit approximately 20 years ago. Allergies Allergy/AdvReac Type Severity Reaction Status Date / Time No Known Allergies Allergy Unknown Verified 12/05/02 15:09 Home Medications Medication Instructions Recorded Confirmed Type fluticasone propionate 50 1 spray INTRANASAL UD 03/04/21 03/04/21 History mcg/actuation nasal spray,suspension insulin glargine 100 unit/mL (3 0 unit SUBCUT TIDM 03/04/21 03/04/21 History mL) subcutaneous pen (Lantus Solostar U-100 Insulin) insulin aspart U-100 100 unit/mL 10 unit SUBCUT TID #9 ml 03/13/21 Rx (3 mL) subcutaneous pen (Novolog Flexpen U-100 Insulin aspart) insulin glargine 100 unit/mL 30 unit SUBCUT DAILY #9 ml 03/13/21 Rx subcutaneous solution (Lantus U-100 Insulin) Patient History Medical History (Updated 03/11/21 @ 17:26 by Jean Vincent MD) Asthma CHF (congestive heart failure) Diabetes GERD (gastroesophageal reflux disease) No pertinent family history Surgical History (Updated 03/04/21 @ 22:08 by Mac Shore) No pertinent past surgical history Social History Smoking Status: Never smoker Hx Alcohol Use: No Hx Substance Use: No Preferred Language: Greek Communication Ability: Effective Dobby Loom Fixer Required: No Beliefs That Will Affect Care: None Current Living Situation: Spouse and Family Other Information That Helps Us Care for You: No Feels Safe at Home: Yes Safety Concerns: Feels Safe At This Time Assistive Devices: Glasses and Oxygen - Continuous Review of Systems Review of Systems: All systems reviewed & are unremarkable except as noted in HPI & below Physical Exam Physical Exam: Constitutional: No acute distress HEENT: EOMI, PERRLA Respiratory system: Decreased air entry bilaterally, no wheeze, no rhonchi, positive crackles bilaterally CVS: S1-S2 positive, no murmurs or gallops Abdomen: Soft, nontender, nondistended, positive bowel sounds x4, obese Extremities: +2 pulses bilaterally radialis/ dorsalis pedis, no cyanosis, +2 edema bilateral lower extremity Neuro: Awake alert oriented x3 Psych: Normal mood and affect G/U: No [place] Skin: no rashes, warm and dry Lymphatic: no cervical or axillary lymphadenopathy Results & Data Results & Data ([facility]) Vital Signs (Past 12 Hours) Vital Signs Temp Pulse Resp BP Pulse Ox Pulse Ox 03/17/21 09:00 91 03/17/21 08:43 77 20 90 03/17/21 07:57 36.6 C 76 20 144/85 H 93 03/16/21 23:20 36.5 C 76 18 133/79 92 03/17/21 08:25 03/16/21 06:28 PG Care Time/CCT Total # of Minutes Spent Total Time Spent with Patient: Total time spent is greater than 50% in coordination of care (as documented) at patient's floor/unit and/or counseling patient: Coding Level of Care Code 08817 Initial Inpt Care Lvl 3 Diagnoses Acute respiratory failure with hypoxia J96.01 Pneumonia due to 2019 novel coronavirus U07.1; J12.82 Asthma J45.909
--- NOTE | 2021-03-17 11:09 | Pharmacy Report ---
Pharmacy Glycemic Short Note 2 - Date of Service March 17, 2021 - Glycemic Short BSG Results (Last 24 hours): 03/16/21 03/16/21 03/16/21 11:19 17:03 20:48 POC Glucose 133 H 83 161 H 03/16/21 03/17/21 23:45 08:16 POC Glucose 166 H 95 OUTPATIENT ANTIDIABETIC REGIMEN: * Lantus TID * Pt is unsure of her insulin regimen. She states that she has been ill and isn't sure when she last took her insulin. She acknowledges that non-compl iance is an issue. * HbA1c: 12.4% (03/05/21) ASSESSMENT: 03/17: * Patient received total of 107 units of insulin yesterday * BSGs much improved yesterday, trending down with dinner - plan to scale back on NPH and CR slightly * Fasting BSG still on lower side 95 mg/dL, plan to scale back on Lantus 03/16: * 105 units SQ insulin given in last 24 hours * Fasting BSG 81 this AM w/ 15 units Lantus + 18 units NPH give yesterday. Will decrease Lantus dose secondary to fasting BSG less than 100 and only dose in the AM. * Post-prandial BSGs elevated yesterday however BSGs were taken after meals in 2 of 3 checks. Prior BSG checks on 03/14 also showed post-prandial hyperglycemia however. Will escalate NPH and prandial Novolog doses w/ meals but decrease HS coverage to lessen risk of fasting hypoglycemia. * Today is the 2nd day of PO dexamethasone, she may be less insulin resistant. Will monitor BSG trend closely. 03/15: * Zaira received 129 units of SQ of insulin yesterday: * 30 units of Lantus, 36 units of NPH, 63 units of NovoLog * patient refused insulin at lunchtime * Fasting BSG of 63 mg/dL is below goal, therefore AM Lantus was held. Will resume BID dosing at dinnertime. * Patient experienced post prandial BSG elevation yesterday evening (272 at dinner, 228 mg/dL at HS) after novolog was loosened for lunch BSG of 89. I will continue current novolog order since DXM was changed from IV to PO (anticipate insulin needs to decrease). I will decrease NPH. * Of note, RN called today to report lunch BSG drawn after patient finished her meal - instructed to cover carbs only. Unable to determine if current CF/CR is appropriate. PLAN FOR INPATIENT GLYCEMIC CONTROL: * Hold outpatient oral diabetes medications * Basal insulin * Decrease Lantus to 9 units Q AM only * Increase NPH to 20 units SQ qAM -- to be administered while pt is on DXM * Bolus insulin * NovoLog per scale ACHS or Q6hrs while NPO * Goal Range: Low 90 mg/dL - High 140 mg/dL * Correction Factor: 12 mg/dL/unit with meals; 25mg/dL/unit at HS (only correct at HS if above 180) * Nutritional / Prandial insulin per carb ratio of 1 unit per 4 grams CHO consumed w/ meals; 1 unit per 6 grams CHO at HS PLAN FOR DISCHARGE: * HbA1c of 12.4% suggests very poor outpatient glycemic control * Discussed with wellness educator has requested patient be discharged on ReliOn/Novolin 70/30 insulin on discharge * Per provider, patient will be discharged with 2-3 more days of PO dexamethasone * While on dexamethasone 6mg PO daily: 70/30 insulin 40 units w/ breakfast + 20 units w/ dinner * Unfortunately, limited inpatient data on PO DXM thus far so it is difficult to make optimal recommendations for discharge. Will err on side of caution and patient's desire to limit hypoglycemia. * Once steroids are discontinued: 70/30 insulin 30 units w/ breakfast + 15 units w/ dinner * This regimen will almost certainly need to be adjusted in outpatient setting. Suggest consistent follow-up with PCP for further dose titrations. Tube Former Operator will f/u with patient via phone to assist with monitor and dose titration. * Patient should call PCP for dose adjustments if experiencing consistent BSGs greater than 300 mg/dL or less than 70 mg/dL * Support Patient Self-Management * Healthy Lifestyle (diet, exercise, and smoking cessation) * Disease self-management (SMBG) * Prevention of complications (BP, Lipid goals, Immunizations) * Consider outpatient Diabetes Self-Management Education & Support
--- NOTE | 2021-03-17 17:51 | Hospitalist Progress Note ---
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 She is currently being managed for the following: #. Acute hypoxic respiratory failure #. Pneumonia due to COVID-19 virus At presentation, had a severe and dry cough for 1 week [employer]. 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 Tested positive for Covid on 03/05 in the ED. CRP: 172.72 and 260.5; pro-Arnaldo negative, WBC elevatedstable around 14-16 K Patient was able to wean down to 2 L oxygen 03/13, has been requiring higher liters since then. Continue with flutter valve/spirometry/nebs/supportive management. Prone as able. Lasix as needed to keep her on dry side. Her UO has not been recorded and hence cannot comment on I's and O's. Clinically could not appreciate crackles. No BLE edema. Patient making urine. Status post remdesivir & dexamethasone 03/05. Follow-up CXR as needed. Case discussed with pulmonology. #. Asthma Continue home medication #. Diabetes Blood glucose difficult to control, continue with SSI per glycemic pharmacy. Glycemic pharmacy on board. Recommendation for outpatient diabetic management: While on dexamethasone - Lantus 50 units SC daily, Novolog 20 units SC TIDM Once steroids are discontinued, Lantus 30 units SC daily, Novolog 10 units SC TIDM Her above recommendation cost $105-$210 for patient which she cannot afford. Will request pharmacy to come up with a plan for ReliOn/Novolin 70/30 insulin which he can get from [facility] for $[facility]. We will send the recommendation to [facility] in [place] at the time of DC. Instructed to put "substitute ReliOn brand" in the prescription. New outpatient diabetic recommendation for the patient per glycemic pharmacy: While on dexamethasone 6mg PO daily: 70/30 insulin 40 units w/ breakfast + 20 units w/ dinner Unfortunately, limited inpatient data on PO DXM thus far so it is difficult to make optimal recommendations for discharge. Will err on side of caution and patient's desire to limit hypoglycemia. Once steroids are discontinued: 70/30 insulin 30 units w/ breakfast + 15 units w/ dinner This regimen will almost certainly need to be adjusted in outpatient setting. Suggest consistent follow-up with PCP for further dose titrations. Folder Taper Operator will f/u with patient via phone to assist with monitor and dose titration. Patient should call PCP for dose adjustments if experiencing consistent BSGs greater than 300 mg/dL or less than 70 mg/dL #. CHF No signs of fluid overload We will keep her on dry side. #. GERD: Continue PPI DVT prophylaxis: Subcutaneous Lovenox PT/OT Disposition: Patient will need 2 step test prior to discharge to home. Patient needing more oxygen, looks like she will be here for a few more days until she shows signs of improvement. Continue PT/OT. Admission and Anticipated Discharge Date Admission Date: March 05, 2021 Subjective Patient lying in bed, on 8 L from 4 L yesterday, patient feels same. Overnight patient required 10 to 15 L of oxygen to maintain saturation. She is eating and moving bowel okay though. Patient encouraged to use flutter valve and incentive spirometry. NAD, denies other review of symptoms. Physical Exam Physical Exam: GENERAL: Alert and oriented x3. NAD, on 8 L HEENT: No pallor, no icterus. Pupils equal, round and reactive to light. Oral mucosa moist. NECK: No JVD, no neck masses. HEART: S1 and S2 heard. Regular rate and rhythm. No murmur, no gallop. RESPIRATORY SYSTEM: Normal AP diameter. No accessory muscle use. No wheezing, no crackles. Decreased breath sounds bilaterally. Dry coughimproving. ABDOMEN: Soft, bowel sounds present, nontender, no distention. CENTRAL NERVOUS SYSTEM: No facial droop. Speech is clear. Obeys simple commands. Moves extremities. EXTREMITIES: trace to No edema, no erythema seen. Results & Data Results & Data ([facility]) Vital Signs (Past 12 Hours) Vital Signs Temp Pulse Pulse Resp BP Pulse Ox Pulse Ox 03/17/21 14:54 36.8 C 96 H 18 146/78 H 91 03/17/21 09:00 91 03/17/21 08:43 77 20 90 03/17/21 07:57 36.6 C 76 20 144/85 H 93
[2021-03-18 07:57] LABS: Hematocrit (blood only) 43.1 % (37-47); Hemoglobin 14.3 g/dL (12.0-16.0); Mean Corpuscular Hemoglobin 30.4 pg (25-34); Mean Corpuscular Hgb Conc 33.2 g/dL (32-36); Mean Corpuscular Volume 91.7 fL (80-100); Mean Platelet Volume 9.6 fL (7.4-10.4); Platelet Count 482 K/uL (130-400); RDW Standard Deviation 47.2 fL (36.4-46.3); White Blood Count 17.02 K/uL (4.8-10.8)
[2021-03-18 08:26] LABS: BUN Creatinine Ratio 45.9 (10-20); Calcium 8.5 mg/dl (8.5-10.1); Est GFR (African American) 107.4 ml/min; Est GFR (Non-African American) 92.7 ml/min; Magnesium 2.6 mg/dl (1.8-2.4); Potassium 4.3 mmol/L (3.5-5.1)
--- NOTE | 2021-03-18 08:44 | Pulmonology Progress Note ---
Date of Service March 18, 2021 Assessment & Plan (1) Acute respiratory failure with hypoxia: (2) Pneumonia due to 2019 novel coronavirus: (3) Asthma: Plan: CT chest 03/05/2021 personally reviewed: Diffuse patchy groundglass alveolar opacities appreciated bilaterally upper and lower lobe Cardiomegaly No mediastinal lymphadenopathy Chest x-ray 03/09/2021 personally reviewed: Worsening of bilateral opacities bilateral lower lobes, Bilateral blunting of costophrenic angles --Acute hypoxic respiratory failure Secondary to multilobar COVID-19 pneumonia COVID-19 PCR positive 03/05/2021 CRP 2.72 --> 0.5 Procalcitonin <0.05 03/14/21 --> 0.07 BNP 64 S/p remdesivir Continue with O2 supplementation to keep oxygen saturation between 90-92%. Awake proning will be helpful Continue with incentive spirometry Continue with flutter valve. Recommend patient to be kept euvolemic to negative balance --Probable PARRIS Trial of BiPAP/CPAP nightly Plan: Patient is respite status has improved and is stable currently at 4 L nasal cannula Continue with current management Give Lasix on an as-needed basis 20 mg of Lasix given today No further recommendation from pulmonary perspective. We will sign off. Please call directly with any questions Please note the above document was generated using voice recognition software. It may contain grammatical, syntax or spelling errors.Any formal questions or concerns about the content, text or information contained within the body of this dictation should be directly addressed to the provider for clarification. Admission and Anticipated Discharge Date Admission Date: March 05, 2021 Subjective Patient seen and examined at bedside. No acute distress, no adverse events overnight Patient did try CPAP overnight but she was not able to tolerate it. Denies any chest pain Has been using incentive spirometry Does not bring up significant phlegm coughing She was saturating 90-91% on 4 L of cannula the time of examination She has been awake proning Review of Systems Review of Systems: All systems reviewed & are unremarkable except as noted in Subjective Physical Exam Physical Exam: Constitutional: No acute distress HEENT: EOMI, PERRLA Respiratory system: Decreased air entry bilaterally, no wheeze, no rhonchi, positive crackles bilaterally CVS: S1-S2 positive, no murmurs or gallops Abdomen: Soft, nontender, nondistended, positive bowel sounds x4, obese Extremities: +2 pulses bilaterally radialis/ dorsalis pedis, no cyanosis, + 1 edema bilateral lower extremity Neuro: Awake alert oriented x3 Psych: Normal mood and affect G/U: No Coronel Skin: no rashes, warm and dry Lymphatic: no cervical or axillary lymphadenopathy Results & Data Results & Data ([facility]) Vital Signs (Past 12 Hours) Vital Signs Temp Pulse Pulse Pulse Resp BP Pulse Ox 03/18/21 07:19 36.6 C 78 18 139/84 93 03/18/21 05:48 90 03/18/21 01:55 91 03/17/21 23:18 78 20 94 03/17/21 22:35 36.6 C 84 22 114/74 94 03/18/21 07:06 03/18/21 07:06 PG Care Time/CCT Total # of Minutes Spent Total Time Spent with Patient: Total time spent is greater than 50% in coordination of care (as documented) at patient's floor/unit and/or counseling patient: Coding Level of Care Code 63482 Subseq Hosp Care Lvl 3 Diagnoses Acute respiratory failure with hypoxia J96.01 Pneumonia due to 2019 novel coronavirus U07.1; J12.82 Asthma J45.909
[2021-03-18] MEDS: DOCUSATE SODIUM/SENNA 50/8.6MG TAB PO SCH ×2 (09:00→21:17)
[2021-03-18] MEDS ORDERED: FUROSEMIDE 20 MG in SYRINGE 0 ML IV ONE (09:00)
[2021-03-18] MEDS: FLUTICASONE FUROATE 100MCG 14 PUFFS/INHALER INH SCH (09:01)
[2021-03-18] MEDS: FLUTICASONE PROPIONATE NA SPR 16 GM BTL SCH (09:01)
[2021-03-18] MEDS: ENOXAPARIN INJ 40 MG/0.4 ML SYR SQ SCH ×2 (09:01→21:18)
[2021-03-18] MEDS: INSULIN HUMAN NPH SC SCH ×2 (09:02→18:05)
[2021-03-18] MEDS: INSULIN ASPART 100 UNITS/ML 3 ML PEN SC SCH ×4 (09:02→21:22)
[2021-03-18] MEDS: BENZONATATE 100 MG CAPSULE PO SCH ×3 (09:06→21:17)
--- NOTE | 2021-03-18 10:04 | Pharmacy Report ---
Pharmacy Glycemic Short Note 2 - Date of Service March 18, 2021 - Glycemic Short BSG Results (Last 24 hours): 03/17/21 03/17/21 03/17/21 12:19 17:13 20:34 Glucose POC Glucose 164 H 270 H 241 H 03/18/21 03/18/21 07:06 08:19 Glucose 143 H POC Glucose 107 H OUTPATIENT ANTIDIABETIC REGIMEN: * Lantus TID * Pt is unsure of her insulin regimen. She states that she has been ill and isn't sure when she last took her insulin. She acknowledges that non- compliance is an issue. * HbA1c: 12.4% (03/05/21) ASSESSMENT: 03/18: * Patient received 100 units of insulin yesterday (29 units basal + 71 units bolus) with poor glycemic control * Provider discontinued dexamethasone. Will significantly reduce both basal and bolus insulin: * discontinue Lantus (plan is to start 70/30 on discharge) * continue NPH. start BID dosing for easier transition to 70/30 * loosen novolog CR and CR 03/17: * Patient received total of 107 units of insulin yesterday * BSGs much improved yesterday, trending down with dinner - plan to scale back on NPH and CR slightly * Fasting BSG still on lower side 95 mg/dL, plan to scale back on Lantus 03/16: * 105 units SQ insulin given in last 24 hours * Fasting BSG 81 this AM w/ 15 units Lantus + 18 units NPH give yesterday. Will decrease Lantus dose secondary to fasting BSG less than 100 and only dose in the AM. * Post-prandial BSGs elevated yesterday however BSGs were taken after meals in 2 of 3 checks. Prior BSG checks on 03/14 also showed post-prandial hyperglycemia however. Will escalate NPH and prandial Novolog doses w/ meals but decrease HS coverage to lessen risk of fasting hypoglycemia. * Today is the 2nd day of PO dexamethasone, she may be less insulin resistant. Will monitor BSG trend closely. 03/15: * Zaira received 129 units of SQ of insulin yesterday: * 30 units of Lantus, 36 units of NPH, 63 units of NovoLog * patient refused insulin at lunchtime * Fasting BSG of 63 mg/dL is below goal, therefore AM Lantus was held. Will resume BID dosing at dinnertime. * Patient experienced post prandial BSG elevation yesterday evening (272 at dinner, 228 mg/dL at HS) after novolog was loosened for lunch BSG of 89. I will continue current novolog order since DXM was changed from IV to PO (anticipate insulin needs to decrease). I will decrease NPH. * Of note, RN called today to report lunch BSG drawn after patient finished her meal - instructed to cover carbs only. Unable to determine if current CF/CR is appropriate. PLAN FOR INPATIENT GLYCEMIC CONTROL: * Hold outpatient oral diabetes medications * Basal insulin * Discontinue Lantus * NPH 15 units SQ with breakfast * NPH 10 units SQ with dinner * Bolus insulin * NovoLog per scale ACHS or Q6hrs while NPO * Goal Range: Low 110 mg/dL - High 140 mg/dL * Correction Factor: 20 mg/dL/unit * Nutritional / Prandial insulin per carb ratio of 1 unit per 9 grams CHO consumed PLAN FOR DISCHARGE: * HbA1c of 12.4% suggests very poor outpatient glycemic control * Discussed with perinatal educator has requested patient be discharged on ReliOn/Novolin 70/30 insulin on discharge * IF discharged on oral dexamethasone: * While on dexamethasone 6mg PO daily: 70/30 insulin 40 units w/ breakfast + 20 units w/ dinner * Unfortunately, limited inpatient data on PO DXM thus far so it is difficult to make optimal recommendations for discharge. Will err on side of caution and patient's desire to limit hypoglycemia. * Once steroids are discontinued: 70/30 insulin 30 units w/ breakfast + 15 units w/ dinner * This regimen will almost certainly need to be adjusted in outpatient setting. Suggest consistent follow-up with PCP for further dose titrations. Refuse And Recycling Worker will f/u with patient via phone to assist with monitor and dose titration. * Patient should call PCP for dose adjustments if experiencing consistent BSGs greater than 300 mg/dL or less than 70 mg/dL * Support Patient Self-Management * Healthy Lifestyle (diet, exercise, and smoking cessation) * Disease self-management (SMBG) * Prevention of complications (BP, Lipid goals, Immunizations) * Consider outpatient Diabetes Self-Management Education & Support
--- NOTE | 2021-03-18 17:16 | Hospitalist Progress Note ---
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 She is currently being managed for the following: #. Acute hypoxic respiratory failure #. 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 Tested positive for Covid on 03/05 in the ED. CRP: 172.72 and 260.5; pro-Arnaldo negative, WBC elevatedstable around 14-16 K Patient was able to wean down to 2 L oxygen 03/13, has been requiring higher liters since then. Continue with flutter valve/spirometry/nebs/supportive management. Prone as able. Lasix as needed to keep her on dry side. Her UO has not been recorded and hence cannot comment on I's and O's. Clinically could not appreciate crackles. No BLE edema. Patient making urine. Status post remdesivir & dexamethasone 03/05. Follow-up CXR as needed. Case discussed with pulmonology. Clinically little bit better today We will continue current medications and oxygen therapy Will need to do steps O2 saturation test prior to discharge when the oxygen requirements come down to around 2 L/min #. Asthma Continue home medication #. Diabetes Blood glucose difficult to control, continue with SSI per glycemic pharmacy. Glycemic pharmacy on board. Recommendation for outpatient diabetic management: While on dexamethasone - Lantus 50 units SC daily, Novolog 20 units SC TIDM Once steroids are discontinued, Lantus 30 units SC daily, Novolog 10 units SC TIDM Her above recommendation cost $105-$210 for patient which she cannot afford. Will request pharmacy to come up with a plan for ReliOn/Novolin 70/30 insulin which he can get from [facility] for $43. We will send the recommendation to [facility] in [place] at the time of DC. Instructed to put "substitute ReliOn brand" in the prescription. New outpatient diabetic recommendation for the patient per glycemic pharmacy: While on dexamethasone 6mg PO daily: 70/30 insulin 40 units w/ breakfast + 20 units w/ dinner Unfortunately, limited inpatient data on PO DXM thus far so it is difficult to make optimal recommendations for discharge. Will err on side of caution and patient's desire to limit hypoglycemia. Once steroids are discontinued: 70/30 insulin 30 units w/ breakfast + 15 units w/ dinner This regimen will almost certainly need to be adjusted in outpatient setting. Suggest consistent follow-up with PCP for further dose titrations. Communication Spec will f/u with patient via phone to assist with monitor and dose titration. Patient should call PCP for dose adjustments if experiencing consistent BSGs greater than 300 mg/dL or less than 70 mg/dL #. CHF No signs of fluid overload We will keep her on dry side. #. GERD: Continue PPI DVT prophylaxis: Subcutaneous Lovenox PT/OT Disposition: Patient will need 2 step test prior to discharge to home. Patient needing more oxygen, looks like she will be here for a few more days until she shows signs of improvement. Continue PT/OT. Admission and Anticipated Discharge Date Admission Date: March 05, 2021 Subjective 03/06/2021 The patient was seen and examined in medical telemetry unit She has been complaining of shortness of breath, cough, weakness and diarrhea She does not feel any better since admission Denies any fever and/or chills 03/07/2021 The patient was seen and examined in medical telemetry She has been complaining of more shortness of breath Denies any more diarrhea but weakness persist She has cough without any phlegm 03/08/2021 The patient was seen and examined in medical telemetry unit and in Covid room She has been feeling much better but is still requiring up to 6 L of oxygen to maintain saturation Denies any fever and chills She is worried about her daughter March 09, 2021 The patient was seen and examined in medical telemetry unit and in Covid room She has been feeling a little better today Has cough and is still requiring 6 L of oxygen to maintain saturation She is very anxious about her daughter 03/10/2021 The patient was seen and examined in medical telemetry unit and in the Covid room She remains very anxious and her oxygen requirements remain around 6 L/min Feels a little better compared with yesterday Denies any fever and chills, any abdominal pain nausea and or vomiting Remains very weak and lethargic 03/18/2021 The patient was seen and examined in medical floor She has been feeling a little better today and requiring about 3 to 4 L of oxygen to maintain saturation Review of Systems Review of Systems: All systems reviewed and are unremarkable except as noted below Respiratory: Shortness of breath at rest with cough Musculoskeletal: Generally very weak and lethargic Psychiatric: Very anxious Physical Exam Physical Exam: Lying in bed with moderate shortness of breath and cough at rest Constitutional: well developed, well nourished, + ill appearing and + obese Eyes: PERRL, conjunctivae normal, anicteric sclerae ENMT: external ear and nose normal, oropharynx normal Neck: trachea midline, no thyromegaly Respiratory: + respiratory distress (Moderate shortness of breath at rest), + uses accessory muscles and + cough Auscultation: + diminished lung sounds, + crackles (At the bases) and + wheezes Cardiovascular: Rate/Rhythm: regular rate; not tachycardic Heart Sounds: normal S1 and normal S2; no murmur Extremities: + edema (Trace to 1+ edema bilaterally) Gastrointestinal (Abdomen): Inspection/Auscultation: normal bowel sounds; abdomen not distended Percussion/Palpation: abdomen soft; abdomen nontender Neurologic: , Awake and oriented x3 Psychiatric: A+Ox3, euthymic affect Mood: + anxious mood Lymphatic: no cervical or axillary lymphadenopathy Results & Data Results & Data ([facility]) Vital Signs (Past 12 Hours) Vital Signs Temp Pulse Resp BP Pulse Ox 03/18/21 15:32 36.3 C L 94 H 16 122/80 92 03/18/21 07:19 36.6 C 78 18 139/84 93 03/18/21 05:48 90 Laboratory Results Short CBC 03/18/21 Range/Units 07:06 WBC 17.02 H (4.8-10.8) K/uL Hgb 14.3 (12.0-16.0) g/dL Hct 43.1 (37-47) % Plt Count 482 H (130-400) K/uL BMP 03/18/21 07:06 Sodium 137 Potassium 4.3 Chloride 102 Carbon Dioxide 29 BUN 30 H Creatinine 0.66 Glucose 143 H Calcium 8.5 Medications Administered Current Inpatient Medications Acetaminophen (Acetaminophen 325 Mg Tab) 650 mg PO Q4H PRN PRN Reason: Pain or Fever Stop: 04/04/21 07:26 Last Admin: 03/13/21 01:15 Dose: 650 mg Documented by: Albuterol (Albuterol Hfa 8 Gm Inhaler) 2 puffs INH Q4H PRN PRN Reason: Shortness Of Breath Or Wheezing Stop: 04/04/21 07:26 Last Admin: 03/13/21 21:55 Dose: 2 puffs Documented by: Benzonatate (Benzonatate 100 Mg Capsule) 100 mg PO TID NELL Stop: 04/04/21 20:59 Last Admin: 03/18/21 13:34 Dose: 100 mg Documented by: Dextrose (Dextrose 50% 50 Ml Syringe) 25 - 50 ml IV UD PRN; Protocol PRN Reason: Hypoglycemia Protocol Stop: 04/04/21 08:44 Enoxaparin Sodium (Enoxaparin Inj 40 Mg/0.4 Ml Syr) 40 mg SQ Q12 [facility] Stop: 04/04/21 08:59 Last Admin: 03/18/21 09:01 Dose: 40 mg Documented by: Fluticasone Furoate (Fluticasone Furoate 100mcg 14 Puffs/Inhaler) 1 puffs INH DAILY [facility] Stop: 04/04/21 08:59 Last Admin: 03/18/21 09:01 Dose: 1 puffs Documented by: Fluticasone Propionate (Fluticasone Propionate Na Spr 16 Gm Btl) 1 sprays NA DAILY [facility] Stop: 04/04/21 08:59 Last Admin: 03/18/21 09:01 Dose: 1 sprays Documented by: Glucagon (Glucagon For Inj 1 Mg Vial) 1 mg IM UD PRN; Protocol PRN Reason: Hypoglycemia Protocol Stop: 04/04/21 08:44 Glucose (Glucose 40% Gel 15 Gm Tube) 15 - 30 gm PO UD PRN; Protocol PRN Reason: Hypoglycemia Protocol Stop: 04/04/21 08:44 Glucose (Glucose 10 Tabs/Tube) 4 - 8 tabs PO UD PRN; Protocol PRN Reason: Hypoglycemia Protocol Stop: 04/04/21 08:44 Guaifenesin/Dextromethorphan (Guaifenesin/Dextrom Syrup 200mg/20mg 10ml Udc) 10 ml PO Q6H PRN PRN Reason: Cough Stop: 04/05/21 11:45 Last Admin: 03/16/21 09:01 Dose: 10 ml Documented by: Insulin Aspart (Insulin Aspart 100 Units/Ml 3 Ml Pen) 0 units SC ACHS NELL Stop: 04/17/21 07:29 Last Admin: 03/18/21 13:19 Dose: 4 units Documented by: Insulin Human NPH (Insulin Human Nph) 15 units SC QDB NELL Stop: 04/17/21 08:29 Last Admin: 03/18/21 09:02 Dose: 15 units Documented by: Insulin Human NPH (Insulin Human Nph) 10 units SC QDD [facility]; Protocol Stop: 04/17/21 16:29 Ipratropium Blanchard (Ipratropium Blanchard Neb Soln 0.02% 2.5 Ml Vial) 0.5 mg NEB Q4H PRN PRN Reason: Shortness Of Breath Or Wheezing Stop: 04/04/21 08:59 Last Admin: 03/17/21 08:39 Dose: 0.5 mg Documented by: Levalbuterol HCl (Levalbuterol 1.25mg/0.5ml Neb) 1.25 mg NEB Q4H PRN PRN Reason: Shortness Of Breath Or Wheezing Stop: 04/04/21 07:26 Last Admin: 03/17/21 08:39 Dose: 1.25 mg Documented by: Melatonin (Melatonin 3 Mg Tab) 3 mg PO HS PRN PRN Reason: Sleep Stop: 04/12/21 22:08 Last Admin: 03/15/21 20:18 Dose: 3 mg Documented by: Miscellaneous (Carbohydrates For Hypoglycemia ) 15 - 30 gm PO UD PRN PRN Reason: Hypoglycemia Treatment Stop: 04/04/21 08:44 Last Admin: 03/15/21 08:19 Dose: 15 gm Documented by: Miscellaneous Information (Pharmacy Glycemic Mgmt Consult) 1 ea N/A UD PRN PRN Reason: Consult Stop: 04/08/21 16:33 Nitroglycerin (Nitroglycerin Sl 0.4 Mg/Tab Tab) 0.4 mg SL UD PRN PRN Reason: Chest Pain Stop: 04/04/21 07:26 Ondansetron HCl (Ondansetron Inj 2 Mg/Ml 2 Ml Vial) 4 mg IV Q6H PRN PRN Reason: Nausea Stop: 04/04/21 07:26 Polyethylene Glycol (Polyethylene (Miralax) 17 Gm Pack) 17 gm PO DAILY PRN PRN Reason: Constipation Stop: 04/15/21 20:12 Senna/Docusate Sodium (Docusate Sodium/Senna 50/8.6mg Tab) 1 tab PO BID NELL Stop: 04/15/21 20:59 Last Admin: 03/18/21 09:00 Dose: Not Given Documented by:
[2021-03-19] MEDS: ENOXAPARIN INJ 40 MG/0.4 ML SYR SQ SCH ×2 (09:45→20:56)
[2021-03-19] MEDS: FLUTICASONE PROPIONATE NA SPR 16 GM BTL SCH (09:46)
[2021-03-19] MEDS: INSULIN HUMAN NPH SC SCH ×2 (09:46→18:40)
[2021-03-19] MEDS: FLUTICASONE FUROATE 100MCG 14 PUFFS/INHALER INH SCH (09:46)
[2021-03-19] MEDS: INSULIN ASPART 100 UNITS/ML 3 ML PEN SC SCH ×4 (09:48→20:56)
[2021-03-19] MEDS: BENZONATATE 100 MG CAPSULE PO SCH ×3 (09:52→20:56)
[2021-03-19] MEDS: DOCUSATE SODIUM/SENNA 50/8.6MG TAB PO SCH ×2 (09:53→20:56)
--- NOTE | 2021-03-19 12:47 | Pharmacy Report ---
Pharmacy Glycemic Short Note 2 - Date of Service March 19, 2021 - Glycemic Short BSG Results (Last 24 hours): 03/18/21 03/18/21 03/19/21 17:29 21:08 08:53 POC Glucose 135 H 169 H 92 03/19/21 12:28 POC Glucose 135 H OUTPATIENT ANTIDIABETIC REGIMEN: * Lantus TID * Pt is unsure of her insulin regimen. She states that she has been ill and isn't sure when she last took her insulin. She acknowledges that non- compliance is an issue. * HbA1c: 12.4% (03/05/21) ASSESSMENT: 03/19: * Patient had excellent glycemic control over the past 24 hours on 49 units of insulin (25 units NPH + 24 units novolog) * Will continue current regimen 03/18: * Patient received 100 units of insulin yesterday (29 units basal + 71 units bolus) with poor glycemic control * Provider discontinued dexamethasone. Will significantly reduce both basal and bolus insulin: * discontinue Lantus (plan is to start 70/30 on discharge) * continue NPH. start BID dosing for easier transition to 70/30 * loosen novolog CR and CR 03/17: * Patient received total of 107 units of insulin yesterday * BSGs much improved yesterday, trending down with dinner - plan to scale back on NPH and CR slightly * Fasting BSG still on lower side 95 mg/dL, plan to scale back on Lantus 03/16: * 105 units SQ insulin given in last 24 hours * Fasting BSG 81 this AM w/ 15 units Lantus + 18 units NPH give yesterday. Will decrease Lantus dose secondary to fasting BSG less than 100 and only dose in the AM. * Post-prandial BSGs elevated yesterday however BSGs were taken after meals in 2 of 3 checks. Prior BSG checks on 03/14 also showed post-prandial hyperglycemia however. Will escalate NPH and prandial Novolog doses w/ meals but decrease HS coverage to lessen risk of fasting hypoglycemia. * Today is the 2nd day of PO dexamethasone, she may be less insulin resistant. Will monitor BSG trend closely. 03/15: * Zaira received 129 units of SQ of insulin yesterday: * 30 units of Lantus, 36 units of NPH, 63 units of NovoLog * patient refused insulin at lunchtime * Fasting BSG of 63 mg/dL is below goal, therefore AM Lantus was held. Will resume BID dosing at dinnertime. * Patient experienced post prandial BSG elevation yesterday evening (272 at din ner, 228 mg/dL at HS) after novolog was loosened for lunch BSG of 89. I will continue current novolog order since DXM was changed from IV to PO (anticipate insulin needs to decrease). I will decrease NPH. * Of note, RN called today to report lunch BSG drawn after patient finished her meal - instructed to cover carbs only. Unable to determine if current CF/CR is appropriate. PLAN FOR INPATIENT GLYCEMIC CONTROL: * Hold outpatient oral diabetes medications * Basal insulin * NPH 15 units SQ with breakfast * NPH 10 units SQ with dinner * Bolus insulin * NovoLog per scale ACHS or Q6hrs while NPO * Goal Range: Low 110 mg/dL - High 140 mg/dL * Correction Factor: 20 mg/dL/unit * Nutritional / Prandial insulin per carb ratio of 1 unit per 9 grams CHO consumed PLAN FOR DISCHARGE: * HbA1c of 12.4% suggests very poor outpatient glycemic control * Discussed with bottom turner has requested patient be discharged on ReliOn/Novolin 70/30 insulin on discharge * Recommend ReliOn 70/30 insulin:25 units SQ with breakfast and 15 units SQ with dinner * administer 30 minutes before meal * This regimen will almost certainly need to be adjusted in outpatient setting. Suggest consistent follow-up with PCP for further dose titrations. Revenue Agent will f/u with patient via phone to assist with monitor and dose t itration. * Patient should call PCP for dose adjustments if experiencing consistent BSGs greater than 300 mg/dL or less than 70 mg/dL * Support Patient Self-Management * Healthy Lifestyle (diet, exercise, and smoking cessation) * Disease self-management (SMBG) * Prevention of complications (BP, Lipid goals, Immunizations) * Consider outpatient Diabetes Self-Management Education & Support
[2021-03-19] MEDS ORDERED: FUROSEMIDE 60 MG in SYRINGE 0 ML IV ONE (15:00)
--- NOTE | 2021-03-19 16:29 | Hospitalist Progress Note ---
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 She is currently being managed for the following: #. Acute hypoxic respiratory failure #. Pneumonia due to COVID-19 virus At presentation, had a severe and dry cough for 1 week PROCEDURE ANALYST. 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 Tested positive for Covid on 03/05 in the ED. CRP: 172.72 and 260.5; pro-Arnaldo negative, WBC elevatedstable around 14-16 K Patient was able to wean down to 2 L oxygen 03/13, has been requiring higher liters since then. Continue with flutter valve/spirometry/nebs/supportive management. Prone as able. Lasix as needed to keep her on dry side. Her UO has not been recorded and hence cannot comment on I's and O's. Clinically could not appreciate crackles. No BLE edema. Patient making urine. Status post remdesivir & dexamethasone 03/05. Follow-up CXR as needed. Case discussed with pulmonology. Clinically little bit better today We will continue current medications and oxygen therapy Will need to do steps O2 saturation test prior to discharge when the oxygen requirements come down to around 2 L/min Clinically much better today Advised to ambulate-we will give intravenous Lasix x1 today Probable DC in a day or 2 #. Asthma Continue home medication #. Diabetes Blood glucose difficult to control, continue with SSI per glycemic pharmacy. Glycemic pharmacy on board. Recommendation for outpatient diabetic management: While on dexamethasone - Lantus 50 units SC daily, Novolog 20 units SC TIDM Once steroids are discontinued, Lantus 30 units SC daily, Novolog 10 units SC TIDM Her above recommendation cost $105-$210 for patient which she cannot afford. Will request pharmacy to come up with a plan for ReliOn/Novolin 70/30 insulin which he can get from [facility] for $43. We will send the recommendation to [facility] at the time of DC. Instructed to put "substitute ReliOn brand" in the prescription. New outpatient diabetic recommendation for the patient per glycemic pharmacy: While on dexamethasone 6mg PO daily: 70/30 insulin 40 units w/ breakfast + 20 units w/ dinner Unfortunately, limited inpatient data on PO DXM thus far so it is difficult to make optimal recommendations for discharge. Will err on side of caution and patient's desire to limit hypoglycemia. Once steroids are discontinued: 70/30 insulin 30 units w/ breakfast + 15 units w/ dinner This regimen will almost certainly need to be adjusted in outpatient setting. Suggest consistent follow-up with PCP for further dose titrations. Amusement Machine Mechanic will f/u with patient via phone to assist with monitor and dose titration. Patient should call PCP for dose adjustments if experiencing consistent BSGs greater than 300 mg/dL or less than 70 mg/dL #. CHF No signs of fluid overload We will keep her on dry side. #. GERD: Continue PPI DVT prophylaxis: Subcutaneous Lovenox PT/OT Disposition: Patient will need 2 step test prior to discharge to home. Patient needing more oxygen, looks like she will be here for a few more days until she shows signs of improvement. Continue PT/OT. Admission and Anticipated Discharge Date Admission Date: March 05, 2021 Subjective 03/06/2021 The patient was seen and examined in medical telemetry unit She has been complaining of shortness of breath, cough, weakness and diarrhea She does not feel any better since admission Denies any fever and/or chills 03/07/2021 The patient was seen and examined in medical telemetry She has been complaining of more shortness of breath Denies any more diarrhea but weakness persist She has cough without any phlegm 03/08/2021 The patient was seen and examined in medical telemetry unit and in Covid room She has been feeling much better but is still requiring up to 6 L of oxygen to maintain saturation Denies any fever and chills She is worried about her daughter March 09, 2021 The patient was seen and examined in medical telemetry unit and in Covid room She has been feeling a little better today Has cough and is still requiring 6 L of oxygen to maintain saturation She is very anxious about her daughter 03/10/2021 The patient was seen and examined in medical telemetry unit and in the Covid room She remains very anxious and her oxygen requirements remain around 6 L/min Feels a little better compared with yesterday Denies any fever and chills, any abdominal pain nausea and or vomiting Remains very weak and lethargic 03/18/2021 The patient was seen and examined in medical floor She has been feeling a little better today and requiring about 3 to 4 L of oxygen to maintain saturation 03/19/2021 The patient was seen and examined in Covid unit She has been feeling much better today and has been requiring about 3 L of oxygen to maintain saturation She gets easily short of breath and desaturates with ambulation Was advised to ambulate in the room as much as she can with assistance Review of Systems Review of Systems: All systems reviewed and are unremarkable except as noted below Respiratory: Shortness of breath at rest with cough Musculoskeletal: Generally very weak and lethargic Psychiatric: Very anxious Physical Exam Physical Exam: Lying in bed with moderate shortness of breath and cough at rest Constitutional: well developed, well nourished, + ill appearing and + obese Eyes: PERRL, conjunctivae normal, anicteric sclerae ENMT: external ear and nose normal, oropharynx normal Neck: trachea midline, no thyromegaly Respiratory: + respiratory distress (Moderate shortness of breath at rest), + uses accessory muscles and + cough Auscultation: + diminished lung sounds, + crackles (At the bases) and + wheezes Cardiovascular: Rate/Rhythm: regular rate; not tachycardic Heart Sounds: normal S1 and normal S2; no murmur Extremities: + edema (Trace to 1+ edema bilaterally) Gastrointestinal (Abdomen): Inspection/Auscultation: normal bowel sounds; abdomen not distended Percussion/Palpation: abdomen soft; abdomen nontender Neurologic: Alert, awake and oriented x3. Generally weak but no focal sensory no motor deficit appreciated Psychiatric: A+Ox3, euthymic affect Mood: + anxious mood Lymphatic: no cervical or axillary lymphadenopathy Results & Data Results & Data ([facility]) Vital Signs (Past 12 Hours) Vital Signs Temp Pulse Resp BP Pulse Ox Pulse Ox 03/19/21 09:00 96 03/19/21 08:48 36.7 C 85 18 113/77 93 Medications Administered Current Inpatient Medications Acetaminophen (Acetaminophen 325 Mg Tab) 650 mg PO Q4H PRN PRN Reason: Pain or Fever Stop: 04/04/21 07:26 Last Admin: 03/13/21 01:15 Dose: 650 mg Documented by: Albuterol (Albuterol Hfa 8 Gm Inhaler) 2 puffs INH Q4H PRN PRN Reason: Shortness Of Breath Or Wheezing Stop: 04/04/21 07:26 Last Admin: 03/13/21 21:55 Dose: 2 puffs Documented by: Benzonatate (Benzonatate 100 Mg Capsule) 100 mg PO TID NELL Stop: 04/04/21 20:59 Last Admin: 03/19/21 14:03 Dose: 100 mg Documented by: Dextrose (Dextrose 50% 50 Ml Syringe) 25 - 50 ml IV UD PRN; Protocol PRN Reason: Hypoglycemia Protocol Stop: 04/04/21 08:44 Enoxaparin Sodium (Enoxaparin Inj 40 Mg/0.4 Ml Syr) 40 mg SQ Q12 NELL Stop: 04/04/21 08:59 Last Admin: 03/19/21 09:45 Dose: 40 mg Documented by: Fluticasone Furoate (Fluticasone Furoate 100mcg 14 Puffs/Inhaler) 1 puffs INH DAILY NELL Stop: 04/04/21 08:59 Last Admin: 03/19/21 09:46 Dose: 1 puffs Documented by: Fluticasone Propionate (Fluticasone Propionate Na Spr 16 Gm Btl) 1 sprays NA DAILY NELL Stop: 04/04/21 08:59 Last Admin: 03/19/21 09:46 Dose: 1 sprays Documented by: Glucagon (Glucagon For Inj 1 Mg Vial) 1 mg IM UD PRN; Protocol PRN Reason: Hypoglycemia Protocol Stop: 04/04/21 08:44 Glucose (Glucose 40% Gel 15 Gm Tube) 15 - 30 gm PO UD PRN; Protocol PRN Reason: Hypoglycemia Protocol Stop: 04/04/21 08:44 Glucose (Glucose 10 Tabs/Tube) 4 - 8 tabs PO UD PRN; Protocol PRN Reason: Hypoglycemia Protocol Stop: 04/04/21 08:44 Guaifenesin/Dextromethorphan (Guaifenesin/Dextrom Syrup 200mg/20mg 10ml Udc) 10 ml PO Q6H PRN PRN Reason: Cough Stop: 04/05/21 11:45 Last Admin: 03/16/21 09:01 Dose: 10 ml Documented by: Insulin Aspart (Insulin Aspart 100 Units/Ml 3 Ml Pen) 0 units SC ACHS NELL Stop: 04/17/21 07:29 Last Admin: 03/19/21 13:37 Dose: 8 units Documented by: Insulin Human NPH (Insulin Human Nph) 15 units SC QDB NELL Stop: 04/17/21 08:29 Last Admin: 03/19/21 09:46 Dose: 15 units Documented by: Insulin Human NPH (Insulin Human Nph) 10 units SC QDD [facility]; Protocol Stop: 04/17/21 16:29 Last Admin: 03/18/21 18:05 Dose: 10 units Documented by: Ipratropium Sipsey (Ipratropium [place]sey Neb Soln 0.02% 2.5 Ml Vial) 0.5 mg NEB Q4H PRN PRN Reason: Shortness Of Breath Or Wheezing Stop: 04/04/21 08:59 Last Admin: 03/17/21 08:39 Dose: 0.5 mg Documented by: Levalbuterol HCl (Levalbuterol 1.25mg/0.5ml Neb) 1.25 mg NEB Q4H PRN PRN Reason: Shortness Of Breath Or Wheezing Stop: 04/04/21 07:26 Last Admin: 03/17/21 08:39 Dose: 1.25 mg Documented by: Melatonin (Melatonin 3 Mg Tab) 3 mg PO HS PRN PRN Reason: Sleep Stop: 04/12/21 22:08 Last Admin: 03/15/21 20:18 Dose: 3 mg Documented by: Miscellaneous (Carbohydrates For Hypoglycemia ) 15 - 30 gm PO UD PRN PRN Reason: Hypoglycemia Treatment Stop: 04/04/21 08:44 Last Admin: 03/15/21 08:19 Dose: 15 gm Documented by: Miscellaneous Information (Pharmacy Glycemic Mgmt Consult) 1 ea N/A UD PRN PRN Reason: Consult Stop: 04/08/21 16:33 Nitroglycerin (Nitroglycerin Sl 0.4 Mg/Tab Tab) 0.4 mg SL UD PRN PRN Reason: Chest Pain Stop: 04/04/21 07:26 Ondansetron HCl (Ondansetron Inj 2 Mg/Ml 2 Ml Vial) 4 mg IV Q6H PRN PRN Reason: Nausea Stop: 04/04/21 07:26 Polyethylene Glycol (Polyethylene (Miralax) 17 Gm Pack) 17 gm PO DAILY PRN PRN Reason: Constipation Stop: 04/15/21 20:12 Senna/Docusate Sodium (Docusate Sodium/Senna 50/8.6mg Tab) 1 tab PO BID NELL Stop: 04/15/21 20:59 Last Admin: 03/19/21 09:53 Dose: Not Given Documented by:
[2021-03-20] MEDS: guaiFENesin/DEXTROM SYRUP 200MG/20MG 10ML UDC PO PRN ×2 (00:42→09:11)
[2021-03-20 06:34] LABS: Basophils # (auto) 0.01 K/uL (0-0.2); Basophils % (auto) 0.1 %; Eosinophils # (auto) 0.18 K/uL (0-0.5); Eosinophils % (auto) 1.3 %; Hematocrit (blood only) 40.7 % (37-47); Hemoglobin 13.4 g/dL (12.0-16.0); Immature Granulocytes # (auto) 0.15 K/uL (0.00-0.02); Immature Granulocytes % (auto) 1.1 %; Lymphocytes # (auto) 4.36 K/uL (1.2-3.4); Lymphocytes % (auto) 30.7 %; Mean Corpuscular Hemoglobin 30.1 pg (25-34); Mean Corpuscular Hgb Conc 32.9 g/dL (32-36); Mean Corpuscular Volume 91.5 fL (80-100); Mean Platelet Volume 9.6 fL (7.4-10.4); Monocytes # (auto) 0.96 K/uL (0.11-0.59); Monocytes % (auto) 6.8 %; Neutrophils # (auto) 8.54 K/uL (1.4-6.5); Platelet Count 425 K/uL (130-400); RDW Coefficient of Variation 14.2 % (11.5-14.5); RDW Standard Deviation 47.8 fL (36.4-46.3); Red Blood Count 4.45 M/uL (4.2-5.4)
[2021-03-20 07:07] LABS: BUN Creatinine Ratio 36.5 (10-20); Calcium 8.1 mg/dl (8.5-10.1); Creatinine Clr Calc Pharmacy 82.5 ml/min; Est GFR (African American) 106.4 ml/min; Est GFR (Non-African American) 91.8 ml/min; Magnesium 2.4 mg/dl (1.8-2.4); Potassium 3.8 mmol/L (3.5-5.1)
[2021-03-20 07:08] LABS: Phosphorus 4.3 mg/dl (2.5-4.9)
[2021-03-20] MEDS: INSULIN HUMAN NPH SC SCH ×3 (08:58→18:11)
[2021-03-20] MEDS: ENOXAPARIN INJ 40 MG/0.4 ML SYR SQ SCH ×2 (09:08→21:26)
[2021-03-20] MEDS: DOCUSATE SODIUM/SENNA 50/8.6MG TAB PO SCH ×3 (09:08→21:27)
[2021-03-20] MEDS: BENZONATATE 100 MG CAPSULE PO SCH ×3 (09:08→21:32)
[2021-03-20] MEDS: FLUTICASONE FUROATE 100MCG 14 PUFFS/INHALER INH SCH (09:09)
[2021-03-20] MEDS: FLUTICASONE PROPIONATE NA SPR 16 GM BTL SCH (09:09)
[2021-03-20] MEDS: INSULIN ASPART 100 UNITS/ML 3 ML PEN SC SCH ×5 (09:10→21:24)
--- NOTE | 2021-03-20 10:08 | XRay Report ---
XR chest 1V portable HISTORY: Shortness of breath. Covid pneumonia COMPARISON: Chest 03/09/2021. FINDINGS: No pneumothorax. Trace bilateral pleural effusions persist. The focal bilateral airspace op acities demonstrate a peripheral predominance are again noted. This is similar to the prior study. Th e heart remains borderline enlarged. Right jugular Port-A-Cath terminates in the distal SVC. This rem ains unchanged. The heart remains mildly enlarged. IMPRESSION: No change in the multifocal airspace opacities consistent with a viral pneumonia. ACT 112: Negative or not required by law. Electronically signed by: Caden Dietrich M.D. 03/20/2021 10:07 AM
--- NOTE | 2021-03-20 11:52 | Pharmacy Report ---
Pharmacy Glycemic Short Note 2 - Date of Service March 20, 2021 - Glycemic Short BSG Results (Last 24 hours): 03/19/21 03/19/21 03/19/21 12:28 17:09 20:35 Glucose POC Glucose 135 H 117 H 244 H 03/20/21 03/20/21 05:45 08:03 Glucose 106 H POC Glucose 118 H OUTPATIENT ANTIDIABETIC REGIMEN: * Lantus TID * Pt is unsure of her insulin regimen. She states that she has been ill and isn't sure when she last took her insulin. She acknowledges that non- compliance is an issue. * HbA1c: 12.4% (03/05/21) ASSESSMENT: : * Zaira continues to have good glycemic control with the exception of bedtime hyperglycemia. Will slightly increase AM NPH. * Fasting BSG of 118 mg/dL indicates PM dose of NPH is appropriate. 03/19: * Patient had excellent glycemic control over the past 24 hours on 49 units of insulin (25 units NPH + 24 units novolog) * Will continue current regimen 03/18: * Patient received 100 units of insulin yesterday (29 units basal + 71 units bolus) with poor glycemic control * Provider discontinued dexamethasone. Will significantly reduce both basal and bolus insulin: * discontinue Lantus (plan is to start 70/30 on discharge) * continue NPH. start BID dosing for easier transition to 70/30 * loosen novolog CR and CR 03/17: * Patient received total of 107 units of insulin yesterday * BSGs much improved yesterday, trending down with dinner - plan to scale back on NPH and CR slightly * Fasting BSG still on lower side 95 mg/dL, plan to scale back on Lantus 03/16: * 105 units SQ insulin given in last 24 hours * Fasting BSG 81 this AM w/ 15 units Lantus + 18 units NPH give yesterday. Will decrease Lantus dose secondary to fasting BSG less than 100 and only dose in the AM. * Post-prandial BSGs elevated yesterday however BSGs were taken after meals in 2 of 3 checks. Prior BSG checks on 03/14 also showed post-prandial hyperglycemia however. Will escalate NPH and prandial Novolog doses w/ meals but decrease HS coverage to lessen risk of fasting hypoglycemia. * Today is the 2nd day of PO dexamethasone, she may be less insulin resistant. Will monitor BSG trend closely. 03/15: * Zaira received 129 units of SQ of insulin yesterday: * 30 units of Lantus, 36 units of NPH, 63 units of NovoLog * patient refused insulin at lunchtime * Fasting BSG of 63 mg/dL is below goal, therefore AM Lantus was held. Will resume BID dosing at dinnertime. * Patient experienced post prandial BSG elevation yesterday evening (272 at dinner, 228 mg/dL at HS) after novolog was loosened for lunch BSG of 89. I will continue current novolog order since DXM was changed from IV to PO (anticipate insulin needs to decrease). I will decrease NPH. * Of note, RN called today to report lunch BSG drawn after patient finished her meal - instructed to cover carbs only. Unable to determine if current CF/CR is appropriate. PLAN FOR INPATIENT GLYCEMIC CONTROL: * Hold outpatient oral diabetes medications * Basal insulin * NPH 17 units SQ with breakfast * NPH 10 units SQ with dinner * Bolus insulin * NovoLog per scale ACHS or Q6hrs while NPO * Goal Range: Low 110 mg/dL - High 140 mg/dL * Correction Factor: 20 mg/dL/unit * Nutritional / Prandial insulin per carb ratio of 1 unit per 9 grams CHO consumed PLAN FOR DISCHARGE: * HbA1c of 12.4% suggests very poor outpatient glycemic control * Discussed with certified breastfeeding educator has requested patient be discharged on ReliOn/Novolin 70/30 insulin on discharge * Recommend ReliOn 70/30 insulin: 30 units SQ with breakfast and 15 units SQ with dinner * administer 30 minutes before meal * This regimen will almost certainly need to be adjusted in outpatient setting. Suggest consistent follow-up with PCP for further dose titrations. Quality Assurance Tester will f/u with patient via phone to assist with monitor and dose titration. * Patient should call PCP for dose adjustments if experiencing consistent BSGs greater than 300 mg/dL or less than 70 mg/dL * Support Patient Self-Management * Healthy Lifestyle (diet, exercise, and smoking cessation) * Disease self-management (SMBG) * Prevention of complications (BP, Lipid goals, Immunizations) * Consider outpatient Diabetes Self-Management Education & Support
--- NOTE | 2021-03-20 16:49 | Hospitalist Progress Note ---
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 She is currently being managed for the following: #. Acute hypoxic respiratory failure #. 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 Tested positive for Covid on 03/05 in the ED. CRP: 172.72 and 260.5; pro-Arnaldo negative, WBC elevatedstable around 14-16 K Patient was able to wean down to 2 L oxygen 03/13, has been requiring higher liters since then. Continue with flutter valve/spirometry/nebs/supportive management. Prone as able. Lasix as needed to keep her on dry side. Her UO has not been recorded and hence cannot comment on I's and O's. Clinically could not appreciate crackles. No BLE edema. Patient making urine. Status post remdesivir & dexamethasone 03/05. Follow-up CXR as needed. Case discussed with pulmonology. Clinically little bit better today We will continue current medications and oxygen therapy Will need to do steps O2 saturation test prior to discharge when the oxygen requirements come down to around 2 L/min Clinically much better today Advised to ambulate-we will give intravenous Lasix x1 today Chest x-ray today showed some improvement of pneumonia Was advised to increase ambulation in the room We will continue current management and probable DC on Tuesday #. Asthma Continue home medication #. Diabetes Blood glucose difficult to control, continue with SSI per glycemic pharmacy. Glycemic pharmacy on board. Recommendation for outpatient diabetic management: While on dexamethasone - Lantus 50 units SC daily, Novolog 20 units SC TIDM Once steroids are discontinued, Lantus 30 units SC daily, Novolog 10 units SC TIDM Her above recommendation cost $105-$210 for patient which she cannot afford. Will request pharmacy to come up with a plan for ReliOn/Novolin 70/30 insulin which he can get from [facility] for $43. We will send the recommendation to [facility] [place] at the time of DC. Instructed to put "substitute ReliOn brand" in the prescription. New outpatient diabetic recommendation for the patient per glycemic pharmacy: While on dexamethasone 6mg PO daily: 70/30 insulin 40 units w/ breakfast + 20 units w/ dinner Unfortunately, limited inpatient data on PO DXM thus far so it is difficult to make optimal recommendations for discharge. Will err on side of caution and patient's desire to limit hypoglycemia. Once steroids are discontinued: 70/30 insulin 30 units w/ breakfast + 15 units w/ dinner This regimen will almost certainly need to be adjusted in outpatient setting. Suggest consistent follow-up with PCP for further dose titrations. Grocery Deliverer will f/u with patient via phone to assist with monitor and dose titration. Patient should call PCP for dose adjustments if experiencing consistent BSGs g reater than 300 mg/dL or less than 70 mg/dL #. CHF No signs of fluid overload We will keep her on dry side. We will give another dose of Lasix #. GERD: Continue PPI DVT prophylaxis: Subcutaneous Lovenox PT/OT Disposition: Patient will need 2 step test prior to discharge to home. Patient needing more oxygen, looks like she will be here for a few more days until she shows signs of improvement. Continue PT/OT. Admission and Anticipated Discharge Date Admission Date: March 05, 2021 Subjective 03/06/2021 The patient was seen and examined in medical telemetry unit She has been complaining of shortness of breath, cough, weakness and diarrhea She does not feel any better since admission Denies any fever and/or chills 03/07/2021 The patient was seen and examined in medical telemetry She has been complaining of more shortness of breath Denies any more diarrhea but weakness persist She has cough without any phlegm 03/08/2021 The patient was seen and examined in medical telemetry unit and in Covid room She has been feeling much better but is still requiring up to 6 L of oxygen to maintain saturation Denies any fever and chills She is worried about her daughter March 09, 2021 The patient was seen and examined in medical telemetry unit and in Covid room She has been feeling a little better today Has cough and is still requiring 6 L of oxygen to maintain saturation She is very anxious about her daughter 03/10/2021 The patient was seen and examined in medical telemetry unit and in the Covid room She remains very anxious and her oxygen requirements remain around 6 L/min Feels a little better compared with yesterday Denies any fever and chills, any abdominal pain nausea and or vomiting Remains very weak and lethargic 03/18/2021 The patient was seen and examined in medical floor She has been feeling a little better today and requiring about 3 to 4 L of oxygen to maintain saturation 03/19/2021 The patient was seen and examined in Covid unit She has been feeling much better today and has been requiring about 3 L of oxygen to maintain saturation She gets easily short of breath and desaturates with ambulation Was advised to ambulate in the room as much as she can with assistance 03/20/2021 The patient was seen and examined in medical Covid unit She has been feeling a little better and requiring about 4 L of oxygen to maintain saturation at rest Gets very short of breath with exertion Review of Systems Review of Systems: All systems reviewed and are unremarkable except as noted below Respiratory: Shortness of breath at rest with cough Musculoskeletal: Generally very weak and lethargic Psychiatric: Very anxious Physical Exam Physical Exam: Lying in bed with moderate shortness of breath and cough at rest Constitutional: well developed, well nourished, + ill appearing and + obese Eyes: PERRL, conjunctivae normal, anicteric sclerae ENMT: external ear and nose normal, oropharynx normal Neck: trachea midline, no thyromegaly Respiratory: + respiratory distress (Moderate shortness of breath at rest), + uses accessory muscles and + cough Auscultation: + diminished lung sounds, + crackles (At the bases) and + wheezes Cardiovascular: Rate/Rhythm: regular rate; not tachycardic Heart Sounds: normal S1 and normal S2; no murmur Extremities: + edema (Trace to 1+ edema bilaterally) Gastrointestinal (Abdomen): Inspection/Auscultation: normal bowel sounds; abdomen not distended Percussion/Palpation: abdomen soft; abdomen nontender Psychiatric: A+Ox3, euthymic affect Mood: + anxious mood Lymphatic: no cervical or axillary lymphadenopathy Results & Data Results & Data ([facility]) Vital Signs (Past 12 Hours) Vital Signs Temp Pulse Resp BP Pulse Ox Pulse Ox 03/20/21 16:05 36.5 C 116 H 24 159/85 H 94 03/20/21 08:15 97 03/20/21 07:15 36.6 C 94 H 16 95/61 L 91 Laboratory Results Short CBC 03/20/21 Range/Units 05:45 WBC 14.20 H (4.8-10.8) K/uL Hgb 13.4 (12.0-16.0) g/dL Hct 40.7 (37-47) % Plt Count 425 H (130-400) K/uL BMP 03/20/21 05:45 Sodium 139 Potassium 3.8 Chloride 103 Carbon Dioxide 31 BUN 25 H Creatinine 0.68 Glucose 106 H Calcium 8.1 L Medications Administered Current Inpatient Medications Acetaminophen (Acetaminophen 325 Mg Tab) 650 mg PO Q4H PRN PRN Reason: Pain or Fever Stop: 04/04/21 07:26 Last Admin: 03/13/21 01:15 Dose: 650 mg Documented by: Albuterol (Albuterol Hfa 8 Gm Inhaler) 2 puffs INH Q4H PRN PRN Reason: Shortness Of Breath Or Wheezing Stop: 04/04/21 07:26 Last Admin: 03/13/21 21:55 Dose: 2 puffs Documented by: Benzonatate (Benzonatate 100 Mg Capsule) 100 mg PO TID NELL Stop: 04/04/21 20:59 Last Admin: 03/20/21 15:43 Dose: 100 mg Documented by: Dextrose (Dextrose 50% 50 Ml Syringe) 25 - 50 ml IV UD PRN; Protocol PRN Reason: Hypoglycemia Protocol Stop: 04/04/21 08:44 Enoxaparin Sodium (Enoxaparin Inj 40 Mg/0.4 Ml Syr) 40 mg SQ Q12 NELL Stop: 04/04/21 08:59 Last Admin: 03/20/21 09:08 Dose: 40 mg Documented by: Fluticasone Furoate (Fluticasone Furoate 100mcg 14 Puffs/Inhaler) 1 puffs INH DAILY NELL Stop: 04/04/21 08:59 Last Admin: 03/20/21 09:09 Dose: 1 puffs Documented by: Fluticasone Propionate (Fluticasone Propionate Na Spr 16 Gm Btl) 1 sprays NA DAILY NELL Stop: 04/04/21 08:59 Last Admin: 03/20/21 09:09 Dose: 1 sprays Documented by: Glucagon (Glucagon For Inj 1 Mg Vial) 1 mg IM UD PRN; Protocol PRN Reason: Hypoglycemia Protocol Stop: 04/04/21 08:44 Glucose (Glucose 40% Gel 15 Gm Tube) 15 - 30 gm PO UD PRN; Protocol PRN Reason: Hypoglycemia Protocol Stop: 04/04/21 08:44 Glucose (Glucose 10 Tabs/Tube) 4 - 8 tabs PO UD PRN; Protocol PRN Reason: Hypoglycemia Protocol Stop: 04/04/21 08:44 Guaifenesin/Dextromethorphan (Guaifenesin/Dextrom Syrup 200mg/20mg 10ml Udc) 10 ml PO Q6H PRN PRN Reason: Cough Stop: 04/05/21 11:45 Last Admin: 03/20/21 09:11 Dose: 10 ml Documented by: Insulin Aspart (Insulin Aspart 100 Units/Ml 3 Ml Pen) 0 units SC ACHS NELL Stop: 04/17/21 07:29 Last Admin: 03/20/21 13:19 Dose: 18 units Documented by: Insulin Aspart (Insulin Aspart 100 Units/Ml 3 Ml Pen) 0 units SC 0000 NELL Stop: 03/21/21 00:01 Insulin Human NPH (Insulin Human Nph) 10 units SC QDD NELL; Protocol Stop: 04/17/21 16:29 Last Admin: 03/19/21 18:40 Dose: 10 units Documented by: Insulin Human NPH (Insulin Human Nph) 17 units SC QDB NELL Stop: 04/19/21 07:59 Last Admin: 03/20/21 09:08 Dose: 17 units Documented by: Ipratropium [place] (Ipratropium [place] Neb Soln 0.02% 2.5 Ml Vial) 0.5 mg NEB Q4H PRN PRN Reason: Shortness Of Breath Or Wheezing Stop: 04/04/21 08:59 Last Admin: 03/17/21 08:39 Dose: 0.5 mg Documented by: Levalbuterol HCl (Levalbuterol 1.25mg/0.5ml Neb) 1.25 mg NEB Q4H PRN PRN Reason: Shortness Of Breath Or Wheezing Stop: 04/04/21 07:26 Last Admin: 03/17/21 08:39 Dose: 1.25 mg Documented by: Melatonin (Melatonin 3 Mg Tab) 3 mg PO HS PRN PRN Reason: Sleep Stop: 04/12/21 22:08 Last Admin: 03/15/21 20:18 Dose: 3 mg Documented by: Miscellaneous (Carbohydrates For Hypoglycemia ) 15 - 30 gm PO UD PRN PRN Reason: Hypoglycemia Treatment Stop: 04/04/21 08:44 Last Admin: 03/15/21 08:19 Dose: 15 gm Documented by: Miscellaneous Information (Pharmacy Glycemic Mgmt Consult) 1 ea N/A UD PRN PRN Reason: Consult Stop: 04/08/21 16:33 Nitroglycerin (Nitroglycerin Sl 0.4 Mg/Tab Tab) 0.4 mg SL UD PRN PRN Reason: Chest Pain Stop: 04/04/21 07:26 Ondansetron HCl (Ondansetron Inj 2 Mg/Ml 2 Ml Vial) 4 mg IV Q6H PRN PRN Reason: Nausea Stop: 04/04/21 07:26 Polyethylene Glycol (Polyethylene (Miralax) 17 Gm Pack) 17 gm PO DAILY PRN PRN Reason: Constipation Stop: 04/15/21 20:12 Senna/Docusate Sodium (Docusate Sodium/Senna 50/8.6mg Tab) 1 tab PO BID NELL Stop: 04/15/21 20:59 Last Admin: 03/20/21 09:15 Dose: Not Given Documented by:
[2021-03-20] MEDS ORDERED: FUROSEMIDE 40 MG in SYRINGE 0 ML IV ONE (17:15)
[2021-03-21] MEDS ORDERED: INSULIN ASPART 100 UNITS/ML 3 ML PEN SC SCH
[2021-03-21] MEDS: FLUTICASONE PROPIONATE NA SPR 16 GM BTL SCH (08:02)
[2021-03-21] MEDS: DOCUSATE SODIUM/SENNA 50/8.6MG TAB PO SCH ×2 (08:02→21:19)
[2021-03-21] MEDS: BENZONATATE 100 MG CAPSULE PO SCH ×3 (09:27→21:40)
[2021-03-21] MEDS: FLUTICASONE FUROATE 100MCG 14 PUFFS/INHALER INH SCH (09:27)
[2021-03-21] MEDS: ENOXAPARIN INJ 40 MG/0.4 ML SYR SQ SCH ×2 (09:27→21:20)
[2021-03-21] MEDS: INSULIN ASPART 100 UNITS/ML 3 ML PEN SC SCH ×4 (09:28→21:35)
[2021-03-21] MEDS: INSULIN HUMAN NPH SC SCH ×2 (09:28→18:13)
[2021-03-21] MEDS ORDERED: FUROSEMIDE 40 MG in SYRINGE 0 ML IV ONE (15:51)
--- NOTE | 2021-03-21 15:51 | Hospitalist Progress Note ---
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 She is currently being managed for the following: #. Acute hypoxic respiratory failure #. Pneumonia due to COVID-19 virus At presentation, had a severe and dry cough for 1 week BUCKET CHUCKER. 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 Tested positive for Covid on 03/05 in the ED. CRP: 172.72 and 260.5; pro-Arnaldo negative, WBC elevatedstable around 14-16 K Patient was able to wean down to 2 L oxygen 03/13, has been requiring higher liters since then. Continue with flutter valve/spirometry/nebs/supportive management. Prone as able. Lasix as needed to keep her on dry side. Her UO has not been recorded and hence cannot comment on I's and O's. Clinically could not appreciate crackles. No BLE edema. Patient making urine. Status post remdesivir & dexamethasone 03/05. Follow-up CXR as needed. Case discussed with pulmonology. Clinically little bit better today We will continue current medications and oxygen therapy Will need to do steps O2 saturation test prior to discharge when the oxygen requirements come down to around 2 L/min Clinically much better today Advised to ambulate-we will give intravenous Lasix x1 today Chest x-ray today showed some improvement of pneumonia Was advised to increase ambulation in the room We will continue current management and probable DC on Tuesday Clinically much better but he still gets shortness of breath with hypoxia with ambulation #. Asthma Continue home medication #. Diabetes Blood glucose difficult to control, continue with SSI per glycemic pharmacy. Glycemic pharmacy on board. Recommendation for outpatient diabetic management: While on dexamethasone - Lantus 50 units SC daily, Novolog 20 units SC TIDM Once steroids are discontinued, Lantus 30 units SC daily, Novolog 10 units SC TIDM Her above recommendation cost $105-$210 for patient which she cannot afford. Will request pharmacy to come up with a plan for ReliOn/Novolin 70/30 insulin which he can get from [facility] for $43. We will send the recommendation to [facility] in [place] at the time of DC. Instructed to put "substitute ReliOn brand" in the prescription. New outpatient diabetic recommendation for the patient per glycemic pharmacy: While on dexamethasone 6mg PO daily: 70/30 insulin 40 units w/ breakfast + 20 units w/ dinner Unfortunately, limited inpatient data on PO DXM thus far so it is difficult to make optimal recommendations for discharge. Will err on side of caution and patient's desire to limit hypoglycemia. Once steroids are discontinued: 70/30 insulin 30 units w/ breakfast + 15 units w/ dinner This regimen will almost certainly need to be adjusted in outpatient setting. Suggest consistent follow-up with PCP for further dose titrations. Parking Lot Spotter will f/u with patient via phone to assist with monitor and dose titration. Patient should call PCP for dose adjustments if experiencing consistent BSGs greater than 300 mg/dL or less than 70 mg/dL #. CHF No signs of fluid overload We will keep her on dry side. We will give another dose of Lasix Will give another dose of Lasix today 03/21/2021 #. GERD: Continue PPI DVT prophylaxis: Subcutaneous Lovenox PT/OT Disposition: Patient will need 2 step test prior to discharge to home. Patient needing more oxygen, looks like she will be here for a few more days until she shows signs of improvement. Continue PT/OT. Admission and Anticipated Discharge Date Admission Date: March 05, 2021 Subjective 03/06/2021 The patient was seen and examined in medical telemetry unit She has been complaining of shortness of breath, cough, weakness and diarrhea She does not feel any better since admission Denies any fever and/or chills 03/07/2021 The patient was seen and examined in medical telemetry She has been complaining of more shortness of breath Denies any more diarrhea but weakness persist She has cough without any phlegm 03/08/2021 The patient was seen and examined in medical telemetry unit and in Covid room She has been feeling much better but is still requiring up to 6 L of oxygen to maintain saturation Denies any fever and chills She is worried about her daughter March 09, 2021 The patient was seen and examined in medical telemetry unit and in Covid room She has been feeling a little better today Has cough and is still requiring 6 L of oxygen to maintain saturation She is very anxious about her daughter 03/10/2021 The patient was seen and examined in medical telemetry unit and in the Covid room She remains very anxious and her oxygen requirements remain around 6 L/min Feels a little better compared with yesterday Denies any fever and chills, any abdominal pain nausea and or vomiting Remains very weak and lethargic 03/18/2021 The patient was seen and examined in medical floor She has been feeling a little better today and requiring about 3 to 4 L of oxygen to maintain saturation 03/19/2021 The patient was seen and examined in Covid unit She has been feeling much better today and has been requiring about 3 L of oxygen to maintain saturation She gets easily short of breath and desaturates with ambulation Was advised to ambulate in the room as much as she can with assistance 03/20/2021 The patient was seen and examined in medical Covid unit She has been feeling a little better and requiring about 4 L of oxygen to maintain saturation at rest Gets very short of breath with exertion 03/21/2021 The patient was seen and examined in medical floor and in Covid room She has been feeling much better Still gets tachycardic and hypoxic with ambulation and requires high flow of oxygen up to 6 L to maintain saturation Review of Systems Review of Systems: All systems reviewed and are unremarkable except as noted below Respiratory: Shortness of breath at rest with cough Musculoskeletal: Generally very weak and lethargic Psychiatric: Very anxious Physical Exam Physical Exam: Lying in bed with moderate shortness of breath and cough at rest Constitutional: well developed, well nourished, + ill appearing and + obese Eyes: PERRL, conjunctivae normal, anicteric sclerae ENMT: external ear and nose normal, oropharynx normal Neck: trachea midline, no thyromegaly Respiratory: + respiratory distress (Moderate shortness of breath at rest), + uses accessory muscles and + cough Auscultation: + diminished lung sounds, + crackles (At the bases) and + wheezes Cardiovascular: Rate/Rhythm: regular rate; not tachycardic Heart Sounds: normal S1 and normal S2; no murmur Extremities: + edema (Trace to 1+ edema bilaterally) Gastrointestinal (Abdomen): Inspection/Auscultation: normal bowel sounds; abdomen not distended Percussion/Palpation: abdomen soft; abdomen nontender Psychiatric: A+Ox3, euthymic affect Mood: + anxious mood Lymphatic: no cervical or axillary lymphadenopathy Results & Data Results & Data ([facility]) Vital Signs (Past 12 Hours) Vital Signs Temp Pulse Resp BP Pulse Ox 03/21/21 15:46 36.8 C 105 H 18 144/73 H 93 03/21/21 06:37 36.9 C 85 16 121/86 98 Medications Administered Current Inpatient Medications Acetaminophen (Acetaminophen 325 Mg Tab) 650 mg PO Q4H PRN PRN Reason: Pain or Fever Stop: 04/04/21 07:26 Last Admin: 03/13/21 01:15 Dose: 650 mg Documented by: Albuterol (Albuterol Hfa 8 Gm Inhaler) 2 puffs INH Q4H PRN PRN Reason: Shortness Of Breath Or Wheezing Stop: 04/04/21 07:26 Last Admin: 03/13/21 21:55 Dose: 2 puffs Documented by: Benzonatate (Benzonatate 100 Mg Capsule) 100 mg PO TID NELL Stop: 04/04/21 20:59 Last Admin: 03/21/21 13:18 Dose: 100 mg Documented by: Dextrose (Dextrose 50% 50 Ml Syringe) 25 - 50 ml IV UD PRN; Protocol PRN Reason: Hypoglycemia Protocol Stop: 04/04/21 08:44 Enoxaparin Sodium (Enoxaparin Inj 40 Mg/0.4 Ml Syr) 40 mg SQ Q12 NELL Stop: 04/04/21 08:59 Last Admin: 03/21/21 09:27 Dose: 40 mg Documented by: Fluticasone Furoate (Fluticasone Furoate 100mcg 14 Puffs/Inhaler) 1 puffs INH DAILY NELL Stop: 04/04/21 08:59 Last Admin: 03/21/21 09:27 Dose: 1 puffs Documented by: Fluticasone Propionate (Fluticasone Propionate Na Spr 16 Gm Btl) 1 sprays NA DAILY NELL Stop: 04/04/21 08:59 Last Admin: 03/21/21 08:02 Dose: 1 sprays Documented by: Glucagon (Glucagon For Inj 1 Mg Vial) 1 mg IM UD PRN; Protocol PRN Reason: Hypoglycemia Protocol Stop: 04/04/21 08:44 Glucose (Glucose 40% Gel 15 Gm Tube) 15 - 30 gm PO UD PRN; Protocol PRN Reason: Hypoglycemia Protocol Stop: 04/04/21 08:44 Glucose (Glucose 10 Tabs/Tube) 4 - 8 tabs PO UD PRN; Protocol PRN Reason: Hypoglycemia Protocol Stop: 04/04/21 08:44 Guaifenesin/Dextromethorphan (Guaifenesin/Dextrom Syrup 200mg/20mg 10ml Udc) 10 ml PO Q6H PRN PRN Reason: Cough Stop: 04/05/21 11:45 Last Admin: 03/20/21 09:11 Dose: 10 ml Documented by: Insulin Aspart (Insulin Aspart 100 Units/Ml 3 Ml Pen) 0 units SC ACHS NELL Stop: 04/17/21 07:29 Last Admin: 03/21/21 13:08 Dose: 26 units Documented by: Insulin Human NPH (Insulin Human Nph) 10 units SC QDD NELL; Protocol Stop: 04/17/21 16:29 Last Admin: 03/20/21 18:11 Dose: 10 units Documented by: Insulin Human NPH (Insulin Human Nph) 17 units SC QDB NELL Stop: 04/19/21 07:59 Last Admin: 03/21/21 09:28 Dose: 17 units Documented by: Ipratropium [place] (Ipratropium [place] Neb Soln 0.02% 2.5 Ml Vial) 0.5 mg NEB Q4H PRN PRN Reason: Shortness Of Breath Or Wheezing Stop: 04/04/21 08:59 Last Admin: 03/17/21 08:39 Dose: 0.5 mg Documented by: Levalbuterol HCl (Levalbuterol 1.25mg/0.5ml Neb) 1.25 mg NEB Q4H PRN PRN Reason: Shortness Of Breath Or Wheezing Stop: 04/04/21 07:26 Last Admin: 03/17/21 08:39 Dose: 1.25 mg Documented by: Melatonin (Melatonin 3 Mg Tab) 3 mg PO HS PRN PRN Reason: Sleep Stop: 04/12/21 22:08 Last Admin: 03/15/21 20:18 Dose: 3 mg Documented by: Miscellaneous (Carbohydrates For Hypoglycemia ) 15 - 30 gm PO UD PRN PRN Reason: Hypoglycemia Treatment Stop: 04/04/21 08:44 Last Admin: 03/15/21 08:19 Dose: 15 gm Documented by: Miscellaneous Information (Pharmacy Glycemic Mgmt Consult) 1 ea N/A UD PRN PRN Reason: Consult Stop: 04/08/21 16:33 Nitroglycerin (Nitroglycerin Sl 0.4 Mg/Tab Tab) 0.4 mg SL UD PRN PRN Reason: Chest Pain Stop: 04/04/21 07:26 Ondansetron HCl (Ondansetron Inj 2 Mg/Ml 2 Ml Vial) 4 mg IV Q6H PRN PRN Reason: Nausea Stop: 04/04/21 07:26 Polyethylene Glycol (Polyethylene (Miralax) 17 Gm Pack) 17 gm PO DAILY PRN PRN Reason: Constipation Stop: 04/15/21 20:12 Senna/Docusate Sodium (Docusate Sodium/Senna 50/8.6mg Tab) 1 tab PO BID NELL Stop: 04/15/21 20:59 Last Admin: 03/21/21 08:02 Dose: Not Given Documented by:
[2021-03-21] MEDS ORDERED: FUROSEMIDE 40 MG/4 ML VIAL IV SCH (16:00)
[2021-03-22] MEDS: ENOXAPARIN INJ 40 MG/0.4 ML SYR SQ SCH ×2 (09:51→21:37)
[2021-03-22] MEDS: FLUTICASONE FUROATE 100MCG 14 PUFFS/INHALER INH SCH (09:52)
[2021-03-22] MEDS: DOCUSATE SODIUM/SENNA 50/8.6MG TAB PO SCH ×2 (09:52→21:29)
[2021-03-22] MEDS: FLUTICASONE PROPIONATE NA SPR 16 GM BTL SCH (09:53)
[2021-03-22] MEDS: INSULIN ASPART 100 UNITS/ML 3 ML PEN SC SCH ×4 (09:56→21:33)
[2021-03-22] MEDS: INSULIN HUMAN NPH SC SCH ×2 (09:56→19:00)
[2021-03-22] MEDS: BENZONATATE 100 MG CAPSULE PO SCH ×3 (10:17→21:32)
[2021-03-22 11:13] LABS: Basophils # (auto) 0.01 K/uL (0-0.2); Basophils % (auto) 0.1 %; Eosinophils # (auto) 0.25 K/uL (0-0.5); Eosinophils % (auto) 1.6 %; Hematocrit (blood only) 39.5 % (37-47); Hemoglobin 12.9 g/dL (12.0-16.0); Immature Granulocytes # (auto) 0.09 K/uL (0.00-0.02); Immature Granulocytes % (auto) 0.6 %; Lymphocytes # (auto) 2.94 K/uL (1.2-3.4); Lymphocytes % (auto) 19.3 %; Mean Corpuscular Hemoglobin 30.4 pg (25-34); Mean Corpuscular Hgb Conc 32.7 g/dL (32-36); Mean Corpuscular Volume 93.2 fL (80-100); Mean Platelet Volume 9.5 fL (7.4-10.4); Monocytes # (auto) 1.12 K/uL (0.11-0.59); Monocytes % (auto) 7.3 %; Neutrophils # (auto) 10.86 K/uL (1.4-6.5); Neutrophils % (auto) 71.1 %; Platelet Count 354 K/uL (130-400); RDW Coefficient of Variation 14.2 % (11.5-14.5); RDW Standard Deviation 48.3 fL (36.4-46.3); Red Blood Count 4.24 M/uL (4.2-5.4); White Blood Count 15.27 K/uL (4.8-10.8)
[2021-03-22 11:38] LABS: Polychromasia 1+
[2021-03-22 11:45] LABS: BUN Creatinine Ratio 22.4 (10-20); Calcium 8.1 mg/dl (8.5-10.1); Creatinine Clr Calc Pharmacy 75.8 ml/min; Est GFR (African American) 98.5 ml/min; Magnesium 2.7 mg/dl (1.8-2.4); Phosphorus 3.1 mg/dl (2.5-4.9); Potassium 3.6 mmol/L (3.5-5.1)
--- NOTE | 2021-03-22 13:59 | Pharmacy Report ---
Pharmacy Glycemic Short Note 2 - Date of Service March 22, 2021 - Glycemic Short BSG Results (Last 24 hours): 03/21/21 03/21/21 03/22/21 16:36 21:34 07:55 Glucose POC Glucose 155 H 140 H 226 H 03/22/21 03/22/21 10:35 11:54 Glucose 208 H POC Glucose 207 H OUTPATIENT ANTIDIABETIC REGIMEN: * Lantus TID * Pt is unsure of her insulin regimen. She states that she has been ill and isn't sure when she last took her insulin. She acknowledges that non- compliance is an issue. * HbA1c: 12.4% (03/05/21) ASSESSMENT: 03/22: * Patient received 72 units of insulin yesterday, 27 units NPH, 45 units NovoLog, blood sugars controlled except prior to lunch * Today fasting blood sugar 226mg/dl and 207mg/dl prior to lunch. * Increase dinner NPH + tighten CF/CR for better glycemic control. 03/20: * Zaira continues to have good glycemic control with the exception of bedtime hyperglycemia. Will slightly increase AM NPH. * Fasting BSG of 118 mg/dL indicates PM dose of NPH is appropriate. 03/19: * Patient had excellent glycemic control over the past 24 hours on 49 units of insulin (25 units NPH + 24 units novolog) * Will continue current regimen 03/18: * Patient received 100 units of insulin yesterday (29 units basal + 71 units bolus) with poor glycemic control * Provider discontinued dexamethasone. Will significantly reduce both basal and bolus insulin: * discontinue Lantus (plan is to start 70/30 on discharge) * continue NPH. start BID dosing for easier transition to 70/30 * loosen novolog CR and CR 03/17: * Patient received total of 107 units of insulin yesterday * BSGs much improved yesterday, trending down with dinner - plan to scale back on NPH and CR slightly * Fasting BSG still on lower side 95 mg/dL, plan to scale back on Lantus 03/16: * 105 units SQ insulin given in last 24 hours * Fasting BSG 81 this AM w/ 15 units Lantus + 18 units NPH give yesterday. Will decrease Lantus dose secondary to fasting BSG less than 100 and only dose in the AM. * Post-prandial BSGs elevated yesterday however BSGs were taken after meals in 2 of 3 checks. Prior BSG checks on 03/14 also showed post-prandial hyperglycemia however. Will escalate NPH and prandial Novolog doses w/ meals but decrease HS coverage to lessen risk of fasting hypoglycemia. * Today is the 2nd day of PO dexamethasone, she may be less insulin resistant. Will monitor BSG trend closely. 03/15: * Zaira received 129 units of SQ of insulin yesterday: * 30 units of Lantus, 36 units of NPH, 63 units of NovoLog * patient refused insulin at lunchtime * Fasting BSG of 63 mg/dL is below goal, therefore AM Lantus was held. Will resume BID dosing at dinnertime. * Patient experienced post prandial BSG elevation yesterday evening (272 at dinner, 228 mg/dL at HS) after novolog was loosened for lunch BSG of 89. I will continue current novolog order since DXM was changed from IV to PO (anticipate insulin needs to decrease). I will decrease NPH. * Of note, RN called today to report lunch BSG drawn after patient finished her meal - instructed to cover carbs only. Unable to determine if current CF/CR is appropriate. PLAN FOR INPATIENT GLYCEMIC CONTROL: * Basal insulin * NPH 17 units SQ with breakfast * NPH 14 units SQ with dinner * Bolus insulin * NovoLog per scale ACHS or Q6hrs while NPO * Goal Range: Low 110 mg/dL - High 140 mg/dL * Correction Factor: 15 mg/dL/unit * Nutritional / Prandial insulin per carb ratio of 1 unit per 5 grams CHO consumed PLAN FOR DISCHARGE: * HbA1c of 12.4% suggests very poor outpatient glycemic control * Discussed with buying agent has requested patient be discharged on ReliOn/Novolin 70/30 insulin on discharge * Recommend ReliOn 70/30 insulin: 30 units SQ with breakfast and 15 units SQ with dinner * administer 30 minutes before meal * This regimen will almost certainly need to be adjusted in outpatient setting. Suggest consistent follow-up with PCP for further dose titrations. [employer] will f/u with patient via phone to assist with monitor and dose titration. * Patient should call PCP for dose adjustments if experiencing consistent BSGs greater than 300 mg/dL or less than 70 mg/dL * Support Patient Self-Management * Healthy Lifestyle (diet, exercise, and smoking cessation) * Disease self-management (SMBG) * Prevention of complications (BP, Lipid goals, Immunizations) * Consider outpatient Diabetes Self-Management Education & Support
[2021-03-22] MEDS ORDERED: POTASSIUM CHLORIDE CRTAB 20 MEQ TABCR PO STA (16:15)
--- NOTE | 2021-03-22 16:15 | Hospitalist Progress Note ---
Date of Service March 22, 2021 Assessment & Plan (1) Acute respiratory failure with hypoxia: (2) Pneumonia due to 2019 novel coronavirus: (3) Asthma: Plan: 65-year-old female with PMH of asthma, DM, CHF and GERD presented to the ED 03/05 with cough and shortness of breath for 1 week [employer]HAUL [employer] and weak/tired for 2 weeks PT. She is currently being managed for the following: #. Acute hypoxic respiratory failure #. 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 Tested positive for Covid on 03/05 in the ED. CRP: 172.72 and 260.5; pro-Arnaldo negative, WBC elevatedstable around 14-16 K Patient was able to wean down to 2 L oxygen 03/13, has been requiring higher liters since then. Continue with flutter valve/spirometry/nebs/supportive management. Prone as able. Lasix as needed to keep her on dry side. Her UO has not been recorded and hence cannot comment on I's and O's. Clinically could not appreciate crackles. No BLE edema. Patient making urine. Status post remdesivir & dexamethasone 03/05. Follow-up CXR as needed. Case discussed with pulmonology. Clinically little bit better today We will continue current medications and oxygen therapy Will need to do steps O2 saturation test prior to discharge when the oxygen requirements come down to around 2 L/min Clinically much better today Advised to ambulate-we will give intravenous Lasix x1 today Chest x-ray today showed some improvement of pneumonia Was advised to increase ambulation in the room We will continue current management and probable DC on Tuesday Clinically much better but he still gets shortness of breath with hypoxia with ambulation We will give additional dose of Lasix today She wants to go home tomorrow-we will get to do steps O2 saturation test prior to discharge #. Asthma Continue home medication #. Diabetes Blood glucose difficult to control, continue with SSI per glycemic pharmacy. Glycemic pharmacy on board. Recommendation for outpatient diabetic management: While on dexamethasone - Lantus 50 units SC daily, Novolog 20 units SC TIDM Once steroids are discontinued, Lantus 30 units SC daily, Novolog 10 units SC TIDM Her above recommendation cost $105-$210 for patient which she cannot afford. Will request pharmacy to come up with a plan for ReliOn/Novolin 70/30 insulin which he can get from [facility] for $43. We will send the recommendation to [facility] in [place] at the time of DC. Instructed to put "substitute ReliOn brand" in the prescription. New outpatient diabetic recommendation for the patient per glycemic pharmacy: While on dexamethasone 6mg PO daily: 70/30 insulin 40 units w/ breakfast + 20 units w/ dinner Unfortunately, limited inpatient data on PO DXM thus far so it is difficult to make optimal recommendations for discharge. Will err on side of caution and patient's desire to limit hypoglycemia. Once steroids are discontinued: 70/30 insulin 30 units w/ breakfast + 15 units w/ dinner This regimen will almost certainly need to be adjusted in outpatient setting. Suggest consistent follow-up with PCP for further dose titrations. [employer] will f/u with patient via phone to assist with monitor and dose titration. Patient should call PCP for dose adjustments if experiencing consistent BSGs greater than 300 mg/dL or less than 70 mg/dL #. CHF No signs of fluid overload We will keep her on dry side. We will give another dose of Lasix Will give another dose of Lasix today 03/21/2021 We will give additional dose of Lasix today #. GERD: Continue PPI DVT prophylaxis: Subcutaneous Lovenox PT/OT Disposition: Patient will need 2 step test prior to discharge to home. Patient needing more oxygen, looks like she will be here for a few more days until she shows signs of improvement. Continue PT/OT. Admission and Anticipated Discharge Date Admission Date: March 05, 2021 Subjective 03/06/2021 The patient was seen and examined in medical telemetry unit She has been complaining of shortness of breath, cough, weakness and diarrhea She does not feel any better since admission Denies any fever and/or chills 03/07/2021 The patient was seen and examined in medical telemetry She has been complaining of more shortness of breath Denies any more diarrhea but weakness persist She has cough without any phlegm 03/08/2021 The patient was seen and examined in medical telemetry unit and in Covid room She has been feeling much better but is still requiring up to 6 L of oxygen to maintain saturation Denies any fever and chills She is worried about her daughter March 09, 2021 The patient was seen and examined in medical telemetry unit and in Covid room She has been feeling a little better today Has cough and is still requiring 6 L of oxygen to maintain saturation She is very anxious about her daughter 03/10/2021 The patient was seen and examined in medical telemetry unit and in the Covid room She remains very anxious and her oxygen requirements remain around 6 L/min Feels a little better compared with yesterday Denies any fever and chills, any abdominal pain nausea and or vomiting Remains very weak and lethargic 03/18/2021 The patient was seen and examined in medical floor She has been feeling a little better today and requiring about 3 to 4 L of oxygen to maintain saturation 03/19/2021 The patient was seen and examined in Covid unit She has been feeling much better today and has been requiring about 3 L of oxygen to maintain saturation She gets easily short of breath and desaturates with ambulation Was advised to ambulate in the room as much as she can with assistance 03/20/2021 The patient was seen and examined in medical Covid unit She has been feeling a little better and requiring about 4 L of oxygen to maintain saturation at rest Gets very short of breath with exertion 03/21/2021 The patient was seen and examined in medical floor and in Covid room She has been feeling much better Still gets tachycardic and hypoxic with ambulation and requires high flow of oxygen up to 6 L to maintain saturation 03/22/2021 The patient was seen and examined in medical floor and in Covid unit She has been feeling a little better today Still requiring 4 L of oxygen to maintain saturation Review of Systems Review of Systems: All systems reviewed and are unremarkable except as noted below Respiratory: Shortness of breath at rest with cough Musculoskeletal: Generally very weak and lethargic Psychiatric: Very anxious Physical Exam Physical Exam: Lying in bed with moderate shortness of breath and cough at rest Constitutional: well developed, well nourished, + ill appearing and + obese Eyes: PERRL, conjunctivae normal, anicteric sclerae ENMT: external ear and nose normal, oropharynx normal Neck: trachea midline, no thyromegaly Respiratory: + respiratory distress (Moderate shortness of breath at rest), + uses accessory muscles and + cough Auscultation: + diminished lung sounds, + crackles (At the bases) and + wheezes Cardiovascular: Rate/Rhythm: regular rate; not tachycardic Heart Sounds: normal S1 and normal S2; no murmur Extremities: + edema (Trace to 1+ edema bilaterally) Gastrointestinal (Abdomen): Inspection/Auscultation: normal bowel sounds; abdomen not distended Percussion/Palpation: abdomen soft; abdomen nontender Psychiatric: A+Ox3, euthymic affect Mood: + anxious mood Lymphatic: no cervical or axillary lymphadenopathy Results & Data Results & Data ([facility]) Vital Signs (Past 12 Hours) Vital Signs Temp Pulse Pulse Resp BP Pulse Ox 03/22/21 15:24 36.7 C 99 H 16 138/83 98 03/22/21 08:18 36.6 C 95 H 18 116/65 96 Laboratory Results Short CBC 03/22/21 Range/Units 10:35 WBC 15.27 H (4.8-10.8) K/uL Hgb 12.9 (12.0-16.0) g/dL Hct 39.5 (37-47) % Plt Count 354 (130-400) K/uL BMP 03/22/21 10:35 Sodium 138 Potassium 3.6 Chloride 100 Carbon Dioxide 31 BUN 17 Creatinine 0.74 Glucose 208 H Calcium 8.1 L Medications Administered Current Inpatient Medications Acetaminophen (Acetaminophen 325 Mg Tab) 650 mg PO Q4H PRN PRN Reason: Pain or Fever Stop: 04/04/21 07:26 Last Admin: 03/13/21 01:15 Dose: 650 mg Documented by: Albuterol (Albuterol Hfa 8 Gm Inhaler) 2 puffs INH Q4H PRN PRN Reason: Shortness Of Breath Or Wheezing Stop: 04/04/21 07:26 Last Admin: 03/13/21 21:55 Dose: 2 puffs Documented by: Benzonatate (Benzonatate 100 Mg Capsule) 100 mg PO TID [facility] Stop: 04/04/21 20:59 Last Admin: 03/22/21 15:15 Dose: 100 mg Documented by: Dextrose (Dextrose 50% 50 Ml Syringe) 25 - 50 ml IV UD PRN; Protocol PRN Reason: Hypoglycemia Protocol Stop: 04/04/21 08:44 Enoxaparin Sodium (Enoxaparin Inj 40 Mg/0.4 Ml Syr) 40 mg SQ Q12 NELL Stop: 04/04/21 08:59 Last Admin: 03/22/21 09:51 Dose: 40 mg Documented by: Fluticasone Furoate (Fluticasone Furoate 100mcg 14 Puffs/Inhaler) 1 puffs INH DAILY [facility] Stop: 04/04/21 08:59 Last Admin: 03/22/21 09:52 Dose: 1 puffs Documented by: Fluticasone Propionate (Fluticasone Propionate Na Spr 16 Gm Btl) 1 sprays NA DAILY NELL Stop: 04/04/21 08:59 Last Admin: 03/22/21 09:53 Dose: 1 sprays Documented by: Glucagon (Glucagon For Inj 1 Mg Vial) 1 mg IM UD PRN; Protocol PRN Reason: Hypoglycemia Protocol Stop: 04/04/21 08:44 Glucose (Glucose 40% Gel 15 Gm Tube) 15 - 30 gm PO UD PRN; Protocol PRN Reason: Hypoglycemia Protocol Stop: 04/04/21 08:44 Glucose (Glucose 10 Tabs/Tube) 4 - 8 tabs PO UD PRN; Protocol PRN Reason: Hypoglycemia Protocol Stop: 04/04/21 08:44 Guaifenesin/Dextromethorphan (Guaifenesin/Dextrom Syrup 200mg/20mg 10ml Udc) 10 ml PO Q6H PRN PRN Reason: Cough Stop: 04/05/21 11:45 Last Admin: 03/20/21 09:11 Dose: 10 ml Documented by: Insulin Aspart (Insulin Aspart 100 Units/Ml 3 Ml Pen) 0 units SC ACHS [facility] Stop: 04/17/21 07:29 Last Admin: 03/22/21 13:24 Dose: 13 units Documented by: Insulin Human NPH (Insulin Human Nph) 17 units SC QDB [facility] Stop: 04/19/21 07:59 Last Admin: 03/22/21 09:56 Dose: 17 units Documented by: Insulin Human NPH (Insulin Human Nph) 14 units SC QDD [facility]; Protocol Stop: 04/21/21 16:29 Ipratropium [place] (Ipratropium [place] Neb Soln 0.02% 2.5 Ml Vial) 0.5 mg NEB Q4H PRN PRN Reason: Shortness Of Breath Or Wheezing Stop: 04/04/21 08:59 Last Admin: 03/17/21 08:39 Dose: 0.5 mg Documented by: Levalbuterol HCl (Levalbuterol 1.25mg/0.5ml Neb) 1.25 mg NEB Q4H PRN PRN Reason: Shortness Of Breath Or Wheezing Stop: 04/04/21 07:26 Last Admin: 03/17/21 08:39 Dose: 1.25 mg Documented by: Melatonin (Melatonin 3 Mg Tab) 3 mg PO HS PRN PRN Reason: Sleep Stop: 04/12/21 22:08 Last Admin: 03/15/21 20:18 Dose: 3 mg Documented by: Miscellaneous (Carbohydrates For Hypoglycemia ) 15 - 30 gm PO UD PRN PRN Reason: Hypoglycemia Treatment Stop: 04/04/21 08:44 Last Admin: 03/15/21 08:19 Dose: 15 gm Documented by: Miscellaneous Information (Pharmacy Glycemic Mgmt Consult) 1 ea N/A UD PRN PRN Reason: Consult Stop: 04/08/21 16:33 Nitroglycerin (Nitroglycerin Sl 0.4 Mg/Tab Tab) 0.4 mg SL UD PRN PRN Reason: Chest Pain Stop: 04/04/21 07:26 Ondansetron HCl (Ondansetron Inj 2 Mg/Ml 2 Ml Vial) 4 mg IV Q6H PRN PRN Reason: Nausea Stop: 04/04/21 07:26 Polyethylene Glycol (Polyethylene (Miralax) 17 Gm Pack) 17 gm PO DAILY PRN PRN Reason: Constipation Stop: 04/15/21 20:12 Senna/Docusate Sodium (Docusate Sodium/Senna 50/8.6mg Tab) 1 tab PO BID NELL Stop: 04/15/21 20:59 Last Admin: 03/22/21 09:52 Dose: Not Given Documented by:
[2021-03-22] MEDS ORDERED: FUROSEMIDE 60 MG in SYRINGE 0 ML IV ONE (16:30)
[2021-03-23 07:21] LABS: C Reactive Protein 5.64 mg/dl (0-0.29); Calcium 8.6 mg/dl (8.5-10.1); Creatinine Clr Calc Pharmacy 98.5 ml/min; Est GFR (African American) 112.7 ml/min; Est GFR (Non-African American) 97.3 ml/min; Magnesium 2.2 mg/dl (1.8-2.4); Potassium 3.8 mmol/L (3.5-5.1)
[2021-03-23 07:22] LABS: Phosphorus 3.4 mg/dl (2.5-4.9)
[2021-03-23] MEDS: INSULIN ASPART 100 UNITS/ML 3 ML PEN SC SCH ×4 (09:15→20:57)
[2021-03-23] MEDS: INSULIN HUMAN NPH SC SCH ×2 (09:20→18:05)
[2021-03-23] MEDS: DOCUSATE SODIUM/SENNA 50/8.6MG TAB PO SCH ×2 (09:21→20:53)
[2021-03-23] MEDS: ENOXAPARIN INJ 40 MG/0.4 ML SYR SQ SCH ×2 (09:22→20:53)
[2021-03-23] MEDS: FLUTICASONE FUROATE 100MCG 14 PUFFS/INHALER INH SCH (09:22)
[2021-03-23] MEDS: FLUTICASONE PROPIONATE NA SPR 16 GM BTL SCH (09:23)
[2021-03-23] MEDS: guaiFENesin/DEXTROM SYRUP 200MG/20MG 10ML UDC PO PRN ×3 (09:23→20:56)
[2021-03-23] MEDS: BENZONATATE 100 MG CAPSULE PO SCH ×3 (09:27→21:05)
--- NOTE | 2021-03-23 13:45 | Hospitalist Progress Note ---
Date of Service March 23, 2021 Assessment & Plan (1) Acute respiratory failure with hypoxia: (2) Pneumonia due to 2019 novel coronavirus: (3) Asthma: Plan: 65-year-old female with PMH of asthma, DM, CHF and GERD presented to the ED 03/05 with cough and shortness of breath for 1 week [facility] and weak/tired for 2 weeks PT. She is currently being managed for the following: #. Acute hypoxic respiratory failure #. Pneumonia due to COVID-19 virus At presentation, had a severe and dry cough for 1 week [facility]. 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 Tested positive for Covid on 03/05 in the ED. CRP: 172.72 and 260.5; pro-Arnaldo negative, WBC elevatedstable around 14-16 K Patient was able to wean down to 2 L oxygen 03/13, has been requiring higher liters since then. Continue with flutter valve/spirometry/nebs/supportive management. Prone as able. Lasix as needed to keep her on dry side. Her UO has not been recorded and hence cannot comment on I's and O's. Clinically could not appreciate crackles. No BLE edema. Patient making urine. Status post remdesivir & dexamethasone 03/05. Follow-up CXR as needed. Case discussed with pulmonology. Clinically little bit better today We will continue current medications and oxygen therapy Will need to do steps O2 saturation test prior to discharge when the oxygen requirements come down to around 2 L/min Clinically much better today Advised to ambulate-we will give intravenous Lasix x1 today Chest x-ray today showed some improvement of pneumonia Was advised to increase ambulation in the room We will continue current management and probable DC on Tuesday Clinically much better but he still gets shortness of breath with hypoxia with ambulation We will give additional dose of Lasix today She wants to go home tomorrow-we will get to do steps O2 saturation test prior to discharge She has been feeling much better at rest but gets shortness of breath with desaturation with exertion Underwent to do steps O2 saturation test and she required 2 L at rest and 5 L with exertion to maintain saturation She still wants to go home and does not want to stay in the hospital any longer She knew that there is risk of having more shortness of breath and desaturation at home She will be discharged home this afternoon #. Asthma Continue home medication #. Diabetes Blood glucose difficult to control, continue with SSI per glycemic pharmacy. Glycemic pharmacy on board. Recommendation for outpatient diabetic management: While on dexamethasone - Lantus 50 units SC daily, Novolog 20 units SC TIDM Once steroids are discontinued, Lantus 30 units SC daily, Novolog 10 units SC TIDM Her above recommendation cost $105-$210 for patient which she cannot afford. Will request pharmacy to come up with a plan for ReliOn/Novolin 70/30 insulin which he can get from [facility] for $43. We will send the recommendation to [facility] in [place] at the time of DC. Instructed to put "substitute ReliOn brand" in the prescription. New outpatient diabetic recommendation for the patient per glycemic pharmacy: While on dexamethasone 6mg PO daily: 70/30 insulin 40 units w/ breakfast + 20 units w/ dinner Unfortunately, limited inpatient data on PO DXM thus far so it is difficult to make optimal recommendations for discharge. Will err on side of caution and patient's desire to limit hypoglycemia. Once steroids are discontinued: 70/30 insulin 30 units w/ breakfast + 15 units w/ dinner This regimen will almost certainly need to be adjusted in outpatient setting. Suggest consistent follow-up with PCP for further dose titrations. [facility] will f/u with patient via phone to assist with monitor and dose titration. Patient should call PCP for dose adjustments if experiencing consistent BSGs greater than 300 mg/dL or less than 70 mg/dL #. CHF No signs of fluid overload Has been on the continuous conveyor screen drier side in the hospital Denies any significant shortness of breath at rest #. GERD: Continue PPI DVT prophylaxis: Subcutaneous Lovenox PT/OT Disposition: Patient will need 2 step test prior to discharge to home. Patient needing more oxygen, looks like she will be here for a few more days until she shows signs of improvement. Continue PT/OT. Admission and Anticipated Discharge Date Admission Date: March 05, 2021 Subjective 03/06/2021 The patient was seen and examined in medical telemetry unit She has been complaining of shortness of breath, cough, weakness and diarrhea She does not feel any better since admission Denies any fever and/or chills 03/07/2021 The patient was seen and examined in medical telemetry She has been complaining of more shortness of breath Denies any more diarrhea but weakness persist She has cough without any phlegm 03/08/2021 The patient was seen and examined in medical telemetry unit and in Covid room She has been feeling much better but is still requiring up to 6 L of oxygen to maintain saturation Denies any fever and chills She is worried about her daughter March 09, 2021 The patient was seen and examined in medical telemetry unit and in Covid room She has been feeling a little better today Has cough and is still requiring 6 L of oxygen to maintain saturation She is very anxious about her daughter 03/10/2021 The patient was seen and examined in medical telemetry unit and in the Covid room She remains very anxious and her oxygen requirements remain around 6 L/min Feels a little better compared with yesterday Denies any fever and chills, any abdominal pain nausea and or vomiting Remains very weak and lethargic 03/18/2021 The patient was seen and examined in medical floor She has been feeling a little better today and requiring about 3 to 4 L of oxygen to maintain saturation 03/19/2021 The patient was seen and examined in Covid unit She has been feeling much better today and has been requiring about 3 L of oxygen to maintain saturation She gets easily short of breath and desaturates with ambulation Was advised to ambulate in the room as much as she can with assistance 03/20/2021 The patient was seen and examined in medical Covid unit She has been feeling a little better and requiring about 4 L of oxygen to maintain saturation at rest Gets very short of breath with exertion 03/21/2021 The patient was seen and examined in medical floor and in Covid room She has been feeling much better Still gets tachycardic and hypoxic with ambulation and requires high flow of oxygen up to 6 L to maintain saturation 03/22/2021 The patient was seen and examined in medical floor and in Covid unit She has been feeling a little better today Still requiring 4 L of oxygen to maintain saturation 03/23/2021 The patient was seen and examined in medical unit and in the Covid room She denies any symptoms at rest but he still gets shortness of breath with desaturation on exertion She desperately wants to go home no matter what happens Underwent 12 steps O2 saturation test and she required 2 L at rest and 5 L with exertion She still wants to go home and take the risk Review of Systems Review of Systems: All systems reviewed and are unremarkable except as noted below Respiratory: Shortness of breath at rest with cough Musculoskeletal: Generally very weak and lethargic Psychiatric: Very anxious Physical Exam Physical Exam: Lying in bed with moderate shortness of breath and cough at rest Constitutional: well developed, well nourished, + ill appearing and + obese Eyes: PERRL, conjunctivae normal, anicteric sclerae ENMT: external ear and nose normal, oropharynx normal Neck: trachea midline, no thyromegaly Respiratory: + respiratory distress (Moderate shortness of breath at rest), + uses accessory muscles and + cough Auscultation: + diminished lung sounds, + crackles (At the bases) and + wheezes Cardiovascular: Rate/Rhythm: regular rate; not tachycardic Heart Sounds: normal S1 and normal S2; no murmur Extremities: + edema (Trace to 1+ edema bilaterally) Gastrointestinal (Abdomen): Inspection/Auscultation: normal bowel sounds; abdomen not distended Percussion/Palpation: abdomen soft; abdomen nontender Musculoskeletal: No acute arthritis in any joint Neurologic: Alert, awake and oriented x3. No focal sensory and motor deficit appreciated Psychiatric: A+Ox3, euthymic affect Mood: + anxious mood Lymphatic: no cervical or axillary lymphadenopathy Results & Data Results & Data ([facility]) Vital Signs (Past 12 Hours) Vital Signs Temp Pulse Pulse Pulse Pulse Pulse Pulse 03/23/21 11:50 100 H 113 H 109 H 110 H 109 H 102 H 03/23/21 07:31 37.0 C Pulse Pulse Resp Resp Resp Resp Resp 03/23/21 11:50 101 H 20 22 22 24 03/23/21 07:31 90 16 Resp Resp Resp BP Pulse Ox Pulse Ox Pulse Ox 03/23/21 11:50 22 22 20 90 86 L 03/23/21 07:31 124/86 93 Pulse Ox Pulse Ox Pulse Ox Pulse Ox Pulse Ox 03/23/21 11:50 87 L 89 L 86 L 90 86 L 03/23/21 07:31 Laboratory Results [facility] 03/23/21 06:17 Sodium 136 Potassium 3.8 Chloride 101 Carbon Dioxide 27 BUN 16 Creatinine 0.57 L Glucose 110 H Calcium 8.6 Medications Administered Current Inpatient Medications Acetaminophen (Acetaminophen 325 Mg Tab) 650 mg PO Q4H PRN PRN Reason: Pain or Fever Stop: 04/04/21 07:26 Last Admin: 03/13/21 01:15 Dose: 650 mg Documented by: Albuterol (Albuterol Hfa 8 Gm Inhaler) 2 puffs INH Q4H PRN PRN Reason: Shortness Of Breath Or Wheezing Stop: 04/04/21 07:26 Last Admin: 03/13/21 21:55 Dose: 2 puffs Documented by: Benzonatate (Benzonatate 100 Mg Capsule) 100 mg PO TID NELL Stop: 04/04/21 20:59 Last Admin: 03/23/21 09:27 Dose: 100 mg Documented by: Dextrose (Dextrose 50% 50 Ml Syringe) 25 - 50 ml IV UD PRN; Protocol PRN Reason: Hypoglycemia Protocol Stop: 04/04/21 08:44 Enoxaparin Sodium (Enoxaparin Inj 40 Mg/0.4 Ml Syr) 40 mg SQ Q12 NELL Stop: 04/04/21 08:59 Last Admin: 03/23/21 09:22 Dose: 40 mg Documented by: Fluticasone Furoate (Fluticasone Furoate 100mcg 14 Puffs/Inhaler) 1 puffs INH DAILY [facility] Stop: 04/04/21 08:59 Last Admin: 03/23/21 09:22 Dose: 1 puffs Documented by: Fluticasone Propionate (Fluticasone Propionate Na Spr 16 Gm Btl) 1 sprays NA DAILY [facility] Stop: 04/04/21 08:59 Last Admin: 03/23/21 09:23 Dose: 1 sprays Documented by: Glucagon (Glucagon For Inj 1 Mg Vial) 1 mg IM UD PRN; Protocol PRN Reason: Hypoglycemia Protocol Stop: 04/04/21 08:44 Glucose (Glucose 40% Gel 15 Gm Tube) 15 - 30 gm PO UD PRN; Protocol PRN Reason: Hypoglycemia Protocol Stop: 04/04/21 08:44 Glucose (Glucose 10 Tabs/Tube) 4 - 8 tabs PO UD PRN; Protocol PRN Reason: Hypoglycemia Protocol Stop: 04/04/21 08:44 Guaifenesin/Dextromethorphan (Guaifenesin/Dextrom Syrup 200mg/20mg 10ml Udc) 10 ml PO Q6H PRN PRN Reason: Cough Stop: 04/05/21 11:45 Last Admin: 03/23/21 09:23 Dose: 10 ml Documented by: Insulin Aspart (Insulin Aspart 100 Units/Ml 3 Ml Pen) 0 units SC ACHS [facility] Stop: 04/17/21 07:29 Last Admin: 03/23/21 13:09 Dose: 21 units Documented by: Insulin Human NPH (Insulin Human Nph) 17 units SC QDB [facility] Stop: 04/19/21 07:59 Last Admin: 03/23/21 09:20 Dose: 17 units Documented by: Insulin Human NPH (Insulin Human Nph) 14 units SC QDD [facility]; Protocol Stop: 04/21/21 16:29 Last Admin: 03/22/21 19:00 Dose: 14 units Documented by: Ipratropium [place] (Ipratropium [place] Neb Soln 0.02% 2.5 Ml Vial) 0.5 mg NEB Q4H PRN PRN Reason: Shortness Of Breath Or Wheezing Stop: 04/04/21 08:59 Last Admin: 03/17/21 08:39 Dose: 0.5 mg Documented by: Levalbuterol HCl (Levalbuterol 1.25mg/0.5ml Neb) 1.25 mg NEB Q4H PRN PRN Reason: Shortness Of Breath Or Wheezing Stop: 04/04/21 07:26 Last Admin: 03/17/21 08:39 Dose: 1.25 mg Documented by: Melatonin (Melatonin 3 Mg Tab) 3 mg PO HS PRN PRN Reason: Sleep Stop: 04/12/21 22:08 Last Admin: 03/15/21 20:18 Dose: 3 mg Documented by: Miscellaneous (Carbohydrates For Hypoglycemia ) 15 - 30 gm PO UD PRN PRN Reason: Hypoglycemia Treatment Stop: 04/04/21 08:44 Last Admin: 03/15/21 08:19 Dose: 15 gm Documented by: Miscellaneous Information (Pharmacy Glycemic Mgmt Consult) 1 ea N/A UD PRN PRN Reason: Consult Stop: 04/08/21 16:33 Nitroglycerin (Nitroglycerin Sl 0.4 Mg/Tab Tab) 0.4 mg SL UD PRN PRN Reason: Chest Pain Stop: 04/04/21 07:26 Ondansetron HCl (Ondansetron Inj 2 Mg/Ml 2 Ml Vial) 4 mg IV Q6H PRN PRN Reason: Nausea Stop: 04/04/21 07:26 Polyethylene Glycol (Polyethylene (Miralax) 17 Gm Pack) 17 gm PO DAILY PRN PRN Reason: Constipation Stop: 04/15/21 20:12 Senna/Docusate Sodium (Docusate Sodium/Senna 50/8.6mg Tab) 1 tab PO BID NELL Stop: 04/15/21 20:59 Last Admin: 03/23/21 09:21 Dose: Not Given Documented by:
[2021-03-24] MEDS: ENOXAPARIN INJ 40 MG/0.4 ML SYR SQ SCH ×2 (07:36→21:01)
[2021-03-24] MEDS: FLUTICASONE PROPIONATE NA SPR 16 GM BTL SCH (07:36)
[2021-03-24] MEDS: FLUTICASONE FUROATE 100MCG 14 PUFFS/INHALER INH SCH (07:36)
--- NOTE | 2021-03-24 07:36 | XRay Report ---
XR chest 1V portable HISTORY: 65 years-old Female pneumonia acute shortness of breath with pneumonia COMPARISON: Chest radiograph 03/20/2021 TECHNIQUE: Portable AP view of the chest FINDINGS: Cardiac silhouette is enlarged. Multifocal bilateral airspace opacities within a peripheral predomina nt distribution redemonstrated along with interstitial coarsening, mildly progressed. Possible small pleural effusions. No pneumothorax. Right IJ central venous catheter is unchanged. IMPRESSION: Cardiomegaly with progressively worsened bilateral airspace opacities compatible with mul tifocal pneumonia. ACT 112: Negative or not required by law. The above report was generated using voice recognition software. It may contain grammatical, syntax o r spelling errors. Electronically signed by: Jessee Llamas M.D. 03/24/2021 7:35 AM
[2021-03-24] MEDS: BENZONATATE 100 MG CAPSULE PO SCH ×3 (07:37→21:03)
[2021-03-24] MEDS: DOCUSATE SODIUM/SENNA 50/8.6MG TAB PO SCH ×2 (07:37→21:02)
[2021-03-24] MEDS: INSULIN ASPART 100 UNITS/ML 3 ML PEN SC SCH ×4 (09:01→21:04)
[2021-03-24] MEDS: INSULIN HUMAN NPH SC SCH ×2 (09:02→18:13)
[2021-03-24 09:09] LABS: BUN Creatinine Ratio 16.9 (10-20); C Reactive Protein 6.05 mg/dl (0-0.29); Calcium 8.6 mg/dl (8.5-10.1); Creatinine Clr Calc Pharmacy 93.5 ml/min; Est GFR (African American) 110.9 ml/min; Est GFR (Non-African American) 95.7 ml/min; Magnesium 2.5 mg/dl (1.8-2.4); Phosphorus 3.9 mg/dl (2.5-4.9); Potassium 3.7 mmol/L (3.5-5.1)
--- NOTE | 2021-03-24 11:40 | Pharmacy Report ---
Pharmacy Glycemic Short Note 2 - Date of Service March 24, 2021 - Glycemic Short BSG Results (Last 24 hours): 03/23/21 03/23/21 03/23/21 12:14 17:10 20:41 Glucose POC Glucose 194 H 165 H 160 H 03/24/21 03/24/21 08:14 08:15 Glucose 138 H POC Glucose 134 H OUTPATIENT ANTIDIABETIC REGIMEN: * Lantus TID * Pt is unsure of her insulin regimen. She states that she has been ill and isn't sure when she last took her insulin. She acknowledges that non- compliance is an issue. * HbA1c: 12.4% (03/05/21) ASSESSMENT: 03/24 * Patient's blood sugars yesterday were [phone] mg/dL. * Fasting today is 134 mg/dL. * Patient received 93 units of insulin (31 units of basal and 62 units of bolus) yesterday. * Fasting reasonable so continue current NPH regimen. * BSGs relatively flat throughout the day so continue Novolog. 03/22: * Patient received 72 units of insulin yesterday, 27 units NPH, 45 units NovoLog, blood sugars controlled except prior to lunch * Today fasting blood sugar 226mg/dl and 207mg/dl prior to lunch. * Increase dinner NPH + tighten CF/CR for better glycemic control. 03/20: * Zaira continues to have good glycemic control with the exception of bedtime hyperglycemia. Will slightly increase AM NPH. * Fasting BSG of 118 mg/dL indicates PM dose of NPH is appropriate. 03/19: * Patient had excellent glycemic control over the past 24 hours on 49 units of insulin (25 units NPH + 24 units novolog) * Will continue current regimen 03/18: * Patient received 100 units of insulin yesterday (29 units basal + 71 units bolus) with poor glycemic control * Provider discontinued dexamethasone. Will significantly reduce both basal and bolus insulin: * discontinue Lantus (plan is to start 70/30 on discharge) * continue NPH. start BID dosing for easier transition to 70/30 * loosen novolog CR and CR 03/17: * Patient received total of 107 units of insulin yesterday * BSGs much improved yesterday, trending down with dinner - plan to scale back on NPH and CR slightly * Fasting BSG still on lower side 95 mg/dL, plan to scale back on Lantus 03/16: * 105 units SQ insulin given in last 24 hours * Fasting BSG 81 this AM w/ 15 units Lantus + 18 units NPH give yesterday. Will decrease Lantus dose secondary to fasting BSG less than 100 and only dose in the AM. * Post-prandial BSGs elevated yesterday however BSGs were taken after meals in 2 of 3 checks. Prior BSG checks on 03/14 also showed post-prandial hyperglycemia however. Will escalate NPH and prandial Novolog doses w/ meals but decrease HS coverage to lessen risk of fasting hypoglycemia. * Today is the 2nd day of PO dexamethasone, she may be less insulin resistant. Will monitor BSG trend closely. 03/15: * Zaira received 129 units of SQ of insulin yesterday: * 30 units of Lantus, 36 units of NPH, 63 units of NovoLog * patient refused insulin at lunchtime * Fasting BSG of 63 mg/dL is below goal, therefore AM Lantus was held. Will resume BID dosing at dinnertime. * Patient experienced post prandial BSG elevation yesterday evening (272 at dinner, 228 mg/dL at HS) after novolog was loosened for lunch BSG of 89. I will continue current novolog order since DXM was changed from IV to PO (anticipate insulin needs to decrease). I will decrease NPH. * Of note, RN called today to report lunch BSG drawn after patient finished her meal - instructed to cover carbs only. Unable to determine if current CF/CR is appropriate. PLAN FOR INPATIENT GLYCEMIC CONTROL: * Basal insulin * NPH 17 units SQ with breakfast * NPH 14 units SQ with dinner * Bolus insulin * NovoLog per scale ACHS or Q6hrs while NPO * Goal Range: Low 110 mg/dL - High 140 mg/dL * Correction Factor: 15 mg/dL/unit * Nutritional / Prandial insulin per carb ratio of 1 unit per 4 grams CHO consumed PLAN FOR DISCHARGE: * HbA1c of 12.4% suggests very poor outpatient glycemic control * Discussed with tobacco educator has requested patient be discharged on ReliOn/Novolin 70/30 insulin on discharge * Recommend ReliOn 70/30 insulin: 30 units SQ with breakfast and 15 units SQ with dinner * administer 30 minutes before meal * This regimen will almost certainly need to be adjusted in outpatient setting. Suggest consistent follow-up with PCP for further dose titrations. Pediatrician [facility] will f/u with patient via phone to assist with monitor and dose ti tration. * Patient should call PCP for dose adjustments if experiencing consistent BSGs greater than 300 mg/dL or less than 70 mg/dL * Support Patient Self-Management * Healthy Lifestyle (diet, exercise, and smoking cessation) * Disease self-management (SMBG) * Prevention of complications (BP, Lipid goals, Immunizations) * Consider outpatient Diabetes Self-Management Education & Support
[2021-03-24] MEDS ORDERED: FUROSEMIDE 60 MG in SYRINGE 0 ML IV ONE (11:58)
--- NOTE | 2021-03-24 19:34 | Hospitalist Progress Note ---
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 She is currently being managed for the following: #. Acute hypoxic respiratory failure #. 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 Tested positive for Covid on 03/05 in the ED. CRP: 172.72 and 260.5; pro-Arnaldo negative, WBC elevatedstable around 14-16 K Patient was able to wean down to 2 L oxygen 03/13, has been requiring higher liters since then. Continue with flutter valve/spirometry/nebs/supportive management. Prone as able. Lasix as needed to keep her on dry side. Her UO has not been recorded and hence cannot comment on I's and O's. Clinically could not appreciate crackles. No BLE edema. Patient making urine. Status post remdesivir & dexamethasone 03/05. Follow-up CXR as needed. Case discussed with pulmonology. Clinically little bit better today We will continue current medications and oxygen therapy Will need to do steps O2 saturation test prior to discharge when the oxygen requirements come down to around 2 L/min Clinically much better today Advised to ambulate-we will give intravenous Lasix x1 today Chest x-ray today showed some improvement of pneumonia Was advised to increase ambulation in the room Has been receiving Lasix for the last few days Clinically much better but he still gets shortness of breath with hypoxia with ambulation She wants to go home tomorrow-we will get to do steps O2 saturation test prior to discharge Underwent to do steps O2 saturation test and she required 2 L at rest and 5 L with exertion to maintain saturation on 03/23/2021 She wants to go home but her chest x-ray showed worsening of pneumonia with elevated CRP She was advised to stay for tonight and see how it goes tomorrow with repeat testing She can come out of isolation as she has been more than 20 days since Covid diagnosis #. Asthma Continue home medication #. Diabetes Blood glucose difficult to control, continue with SSI per glycemic pharmacy. Glycemic pharmacy on board. Recommendation for outpatient diabetic management: While on dexamethasone - Lantus 50 units SC daily, Novolog 20 units SC TIDM Once steroids are discontinued, Lantus 30 units SC daily, Novolog 10 units SC TIDM Her above recommendation cost $105-$210 for patient which she cannot afford. Will request pharmacy to come up with a plan for ReliOn/Novolin 70/30 insulin which he can get from [facility] for $43. We will send the recommendation to [facility] in [place] at the time of DC. Instructed to put "substitute ReliOn brand" in the prescription. New outpatient diabetic recommendation for the patient per glycemic pharmacy: While on dexamethasone 6mg PO daily: 70/30 insulin 40 units w/ breakfast + 20 units w/ dinner Unfortunately, limited inpatient data on PO DXM thus far so it is difficult to make optimal recommendations for discharge. Will err on side of caution and patient's desire to limit hypoglycemia. Once steroids are discontinued: 70/30 insulin 30 units w/ breakfast + 15 units w/ dinner This regimen will almost certainly need to be adjusted in outpatient setting. Suggest consistent follow-up with PCP for further dose titrations. Embossing Press Operator Apprentice will f/u with patient via phone to assist with monitor and dose titration. Patient should call PCP for dose adjustments if experiencing consistent BSGs greater than 300 mg/dL or less than 70 mg/dL Please see pharmacist recommendation about insulin before discharge #. CHF No signs of fluid overload Has been on the sand drier side in the hospital Denies any significant shortness of breath at rest #. GERD: Continue PPI DVT prophylaxis: Subcutaneous Lovenox PT/OT Disposition: Patient will need 2 step test prior to discharge to home. Patient needing more oxygen, looks like she will be here for a few more days until she shows signs of improvement. Continue PT/OT. To do steps O2 saturation was done on fourth of this month and will need anotherone before discharging home Admission and Anticipated Discharge Date Admission Date: March 05, 2021 Subjective 03/06/2021 The patient was seen and examined in medical telemetry unit She has been complaining of shortness of breath, cough, weakness and diarrhea She does not feel any better since admission Denies any fever and/or chills 03/07/2021 The patient was seen and examined in medical telemetry She has been complaining of more shortness of breath Denies any more diarrhea but weakness persist She has cough without any phlegm 03/08/2021 The patient was seen and examined in medical telemetry unit and in Covid room She has been feeling much better but is still requiring up to 6 L of oxygen to maintain saturation Denies any fever and chills She is worried about her daughter March 09, 2021 The patient was seen and examined in medical telemetry unit and in Covid room She has been feeling a little better today Has cough and is still requiring 6 L of oxygen to maintain saturation She is very anxious about her daughter 03/10/2021 The patient was seen and examined in medical telemetry unit and in the Covid room She remains very anxious and her oxygen requirements remain around 6 L/min Feels a little better compared with yesterday Denies any fever and chills, any abdominal pain nausea and or vomiting Remains very weak and lethargic 03/18/2021 The patient was seen and examined in medical floor She has been feeling a little better today and requiring about 3 to 4 L of oxygen to maintain saturation 03/19/2021 The patient was seen and examined in Covid unit She has been feeling much better today and has been requiring about 3 L of oxygen to maintain saturation She gets easily short of breath and desaturates with ambulation Was advised to ambulate in the room as much as she can with assistance 03/20/2021 The patient was seen and examined in medical Covid unit She has been feeling a little better and requiring about 4 L of oxygen to maintain saturation at rest Gets very short of breath with exertion 03/21/2021 The patient was seen and examined in medical floor and in Covid room She has been feeling much better Still gets tachycardic and hypoxic with ambulation and requires high flow of oxygen up to 6 L to maintain saturation 03/22/2021 The patient was seen and examined in medical floor and in Covid unit She has been feeling a little better today Still requiring 4 L of oxygen to maintain saturation 03/23/2021 The patient was seen and examined in medical unit and in the Covid room She denies any symptoms at rest but he still gets shortness of breath with desaturation on exertion She desperately wants to go home no matter what happens Underwent 12 steps O2 saturation test and she required 2 L at rest and 5 L with exertion She still wants to go home and take the risk 03/24/2021 The patient was seen and examined in medical unit and in the Covid room She has been feeling okay but is still getting shortness of breath with exertion and desaturation She wants to go home but her x-ray did show worsening of the pneumonia She was advised to ambulate in the room and see how it is tomorrow before she can be discharged Review of Systems Review of Systems: All systems reviewed and are unremarkable except as noted below Respiratory: Shortness of breath at rest with cough Musculoskeletal: Generally very weak and lethargic Psychiatric: Very anxious Physical Exam Physical Exam: Lying in bed with moderate shortness of breath and cough at rest Constitutional: well developed, well nourished, + ill appearing and + obese Eyes: PERRL, conjunctivae normal, anicteric sclerae ENMT: external ear and nose normal, oropharynx normal Neck: trachea midline, no thyromegaly Respiratory: + respiratory distress (Moderate shortness of breath at rest), + uses accessory muscles and + cough Auscultation: + diminished lung sounds, + crackles (At the bases) and + wheezes Cardiovascular: Rate/Rhythm: regular rate; not tachycardic Heart Sounds: normal S1 and normal S2; no murmur Extremities: + edema (Trace to 1+ edema bilaterally) Gastrointestinal (Abdomen): Inspection/Auscultation: normal bowel sounds; abdomen not distended Percussion/Palpation: abdomen soft; abdomen nontender Musculoskeletal: No acute arthritis in any joint Neurologic: Alert, awake and oriented x3. No focal sensory and motor deficit appreciated Psychiatric: A+Ox3, euthymic affect Mood: + anxious mood Lymphatic: no cervical or axillary lymphadenopathy Results & Data Results & Data ([facility]) Vital Signs (Past 12 Hours) Vital Signs Pulse Resp BP Pulse Ox 03/24/21 15:45 100 H 22 126/62 93 Laboratory Results BMP 03/24/21 08:14 Sodium 139 Potassium 3.7 Chloride 103 Carbon Dioxide 30 BUN 10 D Creatinine 0.60 Glucose 138 H Calcium 8.6 Medications Administered Current Inpatient Medications Acetaminophen (Acetaminophen 325 Mg Tab) 650 mg PO Q4H PRN PRN Reason: Pain or Fever Stop: 04/04/21 07:26 Last Admin: 03/13/21 01:15 Dose: 650 mg Documented by: Albuterol (Albuterol Hfa 8 Gm Inhaler) 2 puffs INH Q4H PRN PRN Reason: Shortness Of Breath Or Wheezing Stop: 04/04/21 07:26 Last Admin: 03/13/21 21:55 Dose: 2 puffs Documented by: Benzonatate (Benzonatate 100 Mg Capsule) 100 mg PO TID NELL Stop: 04/04/21 20:59 Last Admin: 03/24/21 13:16 Dose: 100 mg Documented by: Dextrose (Dextrose 50% 50 Ml Syringe) 25 - 50 ml IV UD PRN; Protocol PRN Reason: Hypoglycemia Protocol Stop: 04/04/21 08:44 Enoxaparin Sodium (Enoxaparin Inj 40 Mg/0.4 Ml Syr) 40 mg SQ Q12 NELL Stop: 04/04/21 08:59 Last Admin: 03/24/21 07:36 Dose: 40 mg Documented by: Fluticasone Furoate (Fluticasone Furoate 100mcg 14 Puffs/Inhaler) 1 puffs INH DAILY NELL Stop: 04/04/21 08:59 Last Admin: 03/24/21 07:36 Dose: 1 puffs Documented by: Fluticasone Propionate (Fluticasone Propionate Na Spr 16 Gm Btl) 1 sprays NA DAILY [facility] Stop: 04/04/21 08:59 Last Admin: 03/24/21 07:36 Dose: 1 sprays Documented by: Glucagon (Glucagon For Inj 1 Mg Vial) 1 mg IM UD PRN; Protocol PRN Reason: Hypoglycemia Protocol Stop: 04/04/21 08:44 Glucose (Glucose 40% Gel 15 Gm Tube) 15 - 30 gm PO UD PRN; Protocol PRN Reason: Hypoglycemia Protocol Stop: 04/04/21 08:44 Glucose (Glucose 10 Tabs/Tube) 4 - 8 tabs PO UD PRN; Protocol PRN Reason: Hypoglycemia Protocol Stop: 04/04/21 08:44 Guaifenesin/Dextromethorphan (Guaifenesin/Dextrom Syrup 200mg/20mg 10ml Udc) 10 ml PO Q6H PRN PRN Reason: Cough Stop: 04/05/21 11:45 Last Admin: 03/23/21 20:56 Dose: 10 ml Documented by: Insulin Aspart (Insulin Aspart 100 Units/Ml 3 Ml Pen) 0 units SC ACHS NELL Stop: 04/17/21 07:29 Last Admin: 03/24/21 18:12 Dose: 20 units Documented by: Insulin Human NPH (Insulin Human Nph) 17 units SC QDB [facility] Stop: 04/19/21 07:59 Last Admin: 03/24/21 09:02 Dose: 17 units Documented by: Insulin Human NPH (Insulin Human Nph) 14 units SC QDD [facility]; Protocol Stop: 04/21/21 16:29 Last Admin: 03/24/21 18:13 Dose: 14 units Documented by: Ipratropium [place] (Ipratropium [place] Neb Soln 0.02% 2.5 Ml Vial) 0.5 mg NEB Q4H PRN PRN Reason: Shortness Of Breath Or Wheezing Stop: 04/04/21 08:59 Last Admin: 03/17/21 08:39 Dose: 0.5 mg Documented by: Levalbuterol HCl (Levalbuterol 1.25mg/0.5ml Neb) 1.25 mg NEB Q4H PRN PRN Reason: Shortness Of Breath Or Wheezing Stop: 04/04/21 07:26 Last Admin: 03/17/21 08:39 Dose: 1.25 mg Documented by: Melatonin (Melatonin 3 Mg Tab) 3 mg PO HS PRN PRN Reason: Sleep Stop: 04/12/21 22:08 Last Admin: 03/15/21 20:18 Dose: 3 mg Documented by: Miscellaneous (Carbohydrates For Hypoglycemia ) 15 - 30 gm PO UD PRN PRN Reason: Hypoglycemia Treatment Stop: 04/04/21 08:44 Last Admin: 03/15/21 08:19 Dose: 15 gm Documented by: Miscellaneous Information (Pharmacy Glycemic Mgmt Consult) 1 ea N/A UD PRN PRN Reason: Consult Stop: 04/08/21 16:33 Nitroglycerin (Nitroglycerin Sl 0.4 Mg/Tab Tab) 0.4 mg SL UD PRN PRN Reason: Chest Pain Stop: 04/04/21 07:26 Ondansetron HCl (Ondansetron Inj 2 Mg/Ml 2 Ml Vial) 4 mg IV Q6H PRN PRN Reason: Nausea Stop: 04/04/21 07:26 Polyethylene Glycol (Polyethylene (Miralax) 17 Gm Pack) 17 gm PO DAILY PRN PRN Reason: Constipation Stop: 04/15/21 20:12 Senna/Docusate Sodium (Docusate Sodium/Senna 50/8.6mg Tab) 1 tab PO BID NELL Stop: 04/15/21 20:59 Last Admin: 03/24/21 07:37 Dose: Not Given Documented by:
[2021-03-25 07:51] LABS: BUN Creatinine Ratio 15.9 (10-20); C Reactive Protein 6.02 mg/dl (0-0.29); Calcium 8.8 mg/dl (8.5-10.1); Creatinine Clr Calc Pharmacy 103.9 ml/min; Est GFR (African American) 114.8 ml/min; Magnesium 2.4 mg/dl (1.8-2.4); Potassium 3.7 mmol/L (3.5-5.1)
[2021-03-25] MEDS: BENZONATATE 100 MG CAPSULE PO SCH ×2 (07:59→12:55)
[2021-03-25] MEDS: DOCUSATE SODIUM/SENNA 50/8.6MG TAB PO SCH (08:00)
[2021-03-25] MEDS: FLUTICASONE FUROATE 100MCG 14 PUFFS/INHALER INH SCH (08:00)
[2021-03-25] MEDS: FLUTICASONE PROPIONATE NA SPR 16 GM BTL SCH (08:00)
[2021-03-25] MEDS: ENOXAPARIN INJ 40 MG/0.4 ML SYR SQ SCH (08:00)
[2021-03-25] MEDS: INSULIN ASPART 100 UNITS/ML 3 ML PEN SC SCH ×2 (09:20→12:53)
[2021-03-25] MEDS: INSULIN HUMAN NPH SC SCH (09:22)
--- NOTE | 2021-03-25 11:00 | XRay Report ---
XR chest 1V portable CLINICAL HISTORY: f/u cxr COMPARISON STUDY: Chest CT March 04, 2021. Chest radiograph March 24, 2021. FINDINGS: Right internal jugular [id number] is in place. There is no pneumothorax. No definite ple ural effusion is noted. Cardiomegaly is unchanged. Mediastinal contours are stable. Extensive bilater al airspace opacities are similar to prior exam. IMPRESSION: No significant change in extensive bilateral airspace opacities which favor viral pneumo perri. ACT 112: Negative or not required by law. Electronically signed by: Dave Franz M.D. 03/25/2021 10:59 AM
--- NOTE | 2021-03-25 21:10 | Discharge Summary ---
Date of Service March 25, 2021 Admission HPI Per Admitting Provider CHIEF COMPLAINT: Shortness of breath. HISTORY OF PRESENT ILLNESS: This is a 65-year-old female with past medical history significant for diabetes mellitus, presents with cough and shortness of breath. The patient says she is not feeling well since last 2 weeks. Since 2 weeks ago, she was feeling weakness and tired and about 1 week ago started having cough, on and off fevers, body aches, poor appetite and since last couple of days, she has been short of breath, which prompted her to come to the ER and found to have COVID positive and multifocal pneumonia. She was saturating 88% on room air, with oxygen she is saturating okay, having lot of cough, having severe headaches. No blurred visions, no earache, no runny nose, no sore throat, no difficulty swallowing. Denies any chest pain. Intially, had a lot of diarrhea that is getting better. Abdominal pain is also getting better. No hematuria, no swelling in the legs. ALLERGIES: No known drug allergies. PAST MEDICAL HISTORY: As mentioned above. PAST SURGICAL HISTORY: Colonoscopy, upper endoscopy with biopsy. MEDICATIONS: On insulin. FAMILY HISTORY: No family history on file. SOCIAL HISTORY: , quit smoking in 2003. No alcohol. REVIEW OF SYSTEMS: As per HPI. Rest of review of systems is negative. Admission Exam Per Admitting Provider GENERAL: The patient is of moderate build, not in acute distress. VITAL SIGNS: Temperature 36.6, pulse 63, respiratory rate 18, blood pressure 164/93, oxygen 94% on 3 liters. HEENT: Pupils equal, round and reactive to light. Oral mucosa moist. NECK: No JVD or neck masses. CARDIOVASCULAR: S1 and S2 heard. Regular rate and rhythm. No murmur, no gallop. RESPIRATORY SYSTEM: Normal AP diameter. No accessory muscle use. Mild bibasilar crackles. No wheezing. ABDOMEN: Soft, bowel sounds present, nontender, no distention. CENTRAL NERVOUS SYSTEM: Cranial nerves II-XII grossly intact, nonfocal. EXTREMITIES: No edema, no erythema. Principal Diagnosis COVID-19 positive test (U07.1, COVID-19) with Acute Pneumonia (J12.89, Other viral pneumonia) (If respiratory failure or sepsis present, add as separate assessment) Acute hypoxic respiratory failure Discharge Exam GENERAL: Alert and oriented x3. NAD, on 4 L. HEENT: No pallor, no icterus. Pupils equal, round and reactive to light. Oral mucosa moist. NECK: No JVD, no neck masses. HEART: S1 and S2 heard. Regular rate and rhythm. No murmur, no gallop. RESPIRATORY SYSTEM: Normal AP diameter. No accessory muscle use. No wheezing, no crackles. Diminished breath sounds. ABDOMEN: Soft, bowel sounds present, nontender, no distention. CENTRAL NERVOUS SYSTEM: Alert and oriented x3. No facial droop. Speech is clear. Obeys simple commands. Moves extremities. EXTREMITIES: No edema, no erythema seen. 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 She was managed for the following while inpatient: #. Acute hypoxic respiratory failure #. 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 Tested positive for Covid on 03/05 in the ED. CRP: trended down; pro-Arnaldo negative, WBC elevatedstable around 14-16 K Patient has been stable in 3 to 5 L oxygen over the past few days. Patient wanted to go home, patient made aware of the risk. Patient advised to immedia tely contact emergency or her PCP if she develops new symptoms/worsening of shortness of breath/productive cough with yellow sputum. Patient advised to continue with flutter valve/spirometry at home Also advised to prone as able. Patient was clinically on the dry side while inpatient. No edema/no crackles. Patient is status post remdesivir & dexamethasone 03/05. Case discussed with pulmonology again today and suggested that her clinical improvement will take many weeks and hence is okay with patient going from pulmonary perspective. Underwent to do steps O2 saturation test and she required 2 L at rest and 5 L with exertion to maintain saturation on 03/23/2021 Patient can stay off of isolation. #. Asthma Continue home medication #. Diabetes Blood glucose difficult to control, continue with SSI per glycemic pharmacy. Glycemic pharmacy on board. Recommendation for outpatient diabetic management: Patient discharged on NPH 70/30 insulin, patient aware, she needs to follow-up with the PCP closely for her insulin dose adjustment, instruction clearly delivered. #. CHF No signs of fluid overload Has been on the flat drier side in the hospital Denies any significant shortness of breath at rest #. GERD: Continue PPI DVT prophylaxis: Subcutaneous Lovenox while inpatient. Patient discharged to home with home oxygen and following instruction at time of discharge: Follow-up with your primary care physician within a week time. Your hemoglobin A1c was 12.4% while inpatient, you will need to close follow-up with your primary care physician for your dose assessment for outpatient insulin doses. If your cough or shortness of breath is worsening or you have fever or any other new symptoms, contact your primary care physician or emergency immediately. Continue with flutter valve and spirometry [every hour while awake] while at home as discussed at the bedside. You will need a follow-up chest x-ray in 4 to 6 weeks time to document resolution of lung involvement. Take medications as prescribed. Take your fingerstick glucose measurement twice a day before insulin injection, maintain a log of your blood sugar measurements to show to your primary care physician. call PCP for dose adjustments if experiencing consistent BSGs greater than 300 mg/dL or less than 70 mg/dL. Total Time Total Time Spent Total Time Spent (In Minutes): 45 Discharge Plan Discharge Items Patient Disposition: Home - Self-Care Reason For Visit: ILLNESS Discharge Diagnosis: COVID-19 positive test (U07.1, COVID-19) with Acute Pneumonia (J12.89, Other viral pneumonia) Acute hypoxic respiratory failure. Uncontrolled diabetes Activity: Per Instructions section Activity Comment: Maintain normal activity, do not overexert yourself. Non-emergency contact: Primary Care Provider Call non-emergency contact if: you have any medication questions, your symptoms worsen, you have a fever and your temperature is above 101 Follow-up/Referrals: Demetrio Bravo [Primary Care Provider] - 03/31/21 11:00 am (PLEASE NOTE THAT THIS IS A TELEPHONE APPOINTMENT. YOUR PHYSICIAN, DR BRAVO, WILL CALL YOU AT THE APPOINTMENT TIME. ) Diet: Carb Consistent or DM2 Addtl Attending Provider Instructions: Follow-up with your primary care physician within a week time. Your hemoglobin A1c was 12.4% while inpatient, you will need to close follow-up with your primary care physician for your dose assessment for outpatient insulin doses. If your cough or shortness of breath is worsening or you have fever or any other new symptoms, contact your primary care physician or emergency immediately. Continue with flutter valve and spirometry [every hour while awake] while at home as discussed at the bedside. You will need a follow-up chest x-ray in 4 to 6 weeks time to document resolution of lung involvement. Take medications as prescribed. Take your fingerstick glucose measurement twice a day before insulin injection, maintain a log of your blood sugar measurements to show to your primary care physician. call PCP for dose adjustments if experiencing consistent BSGs greater than 300 mg/dL or less than 70 mg/dL. Pending Studies at Discharge: No Stand-Alone Forms: My [employer], Smoking Cessation Medications and DC Order Prescriptions: New melatonin 3 mg Tablet 3 mg PO HS PRN (Reason: insomnia) 30 Days Qty: 30 RF: 0 benzonatate [Tessalon Perles] 100 mg Capsule 100 mg PO TID 7 Days Qty: 21 RF: 0 Novolin 70-30 FlexPen U-100 100 unit/mL (70-30) insulin pen 30 unit subcut DAILY Qty: 15 RF: 0 Novolin 70-30 FlexPen U-100 100 unit/mL (70-30) insulin pen 15 unit subcut QPM Qty: 9 RF: 0 Continued fluticasone propionate 50 mcg/actuation spray,suspension 1 spray INTRANASAL UD RF: 0 Discontinued Lantus Solostar U-100 Insulin 100 unit/mL (3 mL) Insulin Pen 0 unit SUBCUT TIDM RF: 0 Discharge Orders: Discharge Order (Routine); Ordered 03/25/21 Ordered By: Jean Davalos/Other Patient Handouts: A1C, Managing Type 2 Diabetes, Foot Care Diabetes Steps, ED Using an Injection Pen Admission Data Admit Date/Time: 03/05/21 03:30 Attending Provider: Jean Vincent Admit Provider: Elder Verma Primary Care Provider: Demetrio Bravo Other Providers: Jean Vincent ; Elder Verma ; Malachi Larsen Other Interventions: Discharge Summary Assessment (RN) Last Done: 03/25/21 14:57
--- NOTE | 2021-04-03 07:32 | Coding Query ---
CONGESTIVE HEART FAILURE To Promote full compliance with coding requirements relating to patient care, physician participation is requested in all cases of soda dry house operator uncertainty. Please assist us with the following questions. A diagnosis of Congestive Heart Failure is documented in the patient's medical record. To accurately code this diagnosis and to compare patient severity, we ask that you specify the type of heart failure by placing an X within the parenthesis (x). SYSTOLIC HEART FAILURE ( ) Acute ( ) Chronic ( ) Acute on Chronic ( ) Rheumatic ( ) Unknown DIASTOLIC HEART FAILURE ( ) Acute ( x ) Chronic ( ) Acute on Chronic ( ) Rheumatic ( ) Unknown COMBINED SYSTOLIC AND DIASTOLIC HEART FAILURE ( ) Acute ( ) Chronic ( ) Acute on Chronic ( ) Rheumatic ( ) Unknown Was the CHF Present On Admission? Please check the appropriate box: acute exacerbation not present. ( ) Present on Admission ( ) Not Present On Admission ( ) Clinically undetermined Thank you Laya HARE
== END 2021-03-25 16:21 | disposition home or self-care (01) | DRG 177 ==
LOC: ED 19:58 → EDINP 03-05 03:30 → SUATTDRO 03-05 03:30 → 2N 03-05 06:45 → 3W 03-16 10:01
DX: J12.82 Pneumonia due to coronavirus disease 2019; I50.32 Chronic diastolic (congestive) heart failure; U07.1 COVID-19; E11.9 Type 2 diabetes mellitus without complications; K21.9 Gastro-esophageal reflux disease without esophagitis; J96.01 Acute respiratory failure with hypoxia; Z79.4 Long term (current) use of insulin; J45.909 Unspecified asthma, uncomplicated

== ENCOUNTER 2021-03-30 12:11 | Inpatient (IN) ==
[2021-03-30 12:47] LABS: Basophils # (auto) 0.03 K/uL (0-0.2); Basophils % (auto) 0.2 %; Eosinophils # (auto) 0.27 K/uL (0-0.5); Eosinophils % (auto) 1.7 %; Hematocrit (blood only) 41.9 % (37-47); Hemoglobin 13.7 g/dL (12.0-16.0); Immature Granulocytes # (auto) 0.05 K/uL (0.00-0.02); Immature Granulocytes % (auto) 0.3 %; Lymphocytes # (auto) 4.52 K/uL (1.2-3.4); Lymphocytes % (auto) 28.2 %; Mean Corpuscular Hemoglobin 30.4 pg (25-34); Mean Corpuscular Hgb Conc 32.7 g/dL (32-36); Mean Corpuscular Volume 93.1 fL (80-100); Monocytes # (auto) 0.89 K/uL (0.11-0.59); Monocytes % (auto) 5.5 %; Neutrophils # (auto) 10.28 K/uL (1.4-6.5); Neutrophils % (auto) 64.1 %; Platelet Count 532 K/uL (130-400); RDW Coefficient of Variation 14.4 % (11.5-14.5); RDW Standard Deviation 48.7 fL (36.4-46.3); White Blood Count 16.04 K/uL (4.8-10.8)
[2021-03-30 13:08] LABS: INR 1.1 (0.9-1.1); Partial Thromboplastin Ratio 0.9; Partial Thromboplastin Time 24.7 Seconds (21.0-31.0); Prothrombin Time 10.7 Seconds (9.0-12.0)
--- NOTE | 2021-03-30 13:11 | XRay Report ---
XR chest 1V portable HISTORY: Dyspnea COMPARISON: Chest 03/25/2021. FINDINGS: Right jugular Port-A-Cath terminates in the SVC. The heart remains mildly enlarged. No pleu ral fusions. No pneumothorax. Bilateral airspace opacities persist. These are similar to the prior st udy. IMPRESSION: No significant the bilateral airspace opacities likely representing a viral pneumonia. ACT 112: Negative or not required by law. Electronically signed by: Caden Dietrich M.D. 03/30/2021 1:10 PM
[2021-03-30 13:14] LABS: Albumin Globulin Ratio 0.5 (0.9-2); Albumin Level 2.6 gm/dl (3.4-5.0); BUN Creatinine Ratio 15.9 (10-20); Bilirubin,Total 0.9 mg/dl (0.2-1); Calcium 9.2 mg/dl (8.5-10.1); Creatinine Clr Calc Pharmacy 87.2 ml/min; Est GFR (African American) 105.4 ml/min; Est GFR (Non-African American) 90.9 ml/min; Globulin 5.5 gm/dl (2.5-4.0); Magnesium 2.5 mg/dl (1.8-2.4); Potassium 3.9 mmol/L (3.5-5.1); Total Protein 8.1 gm/dl (6.4-8.2); Troponin I 0.019 ng/ml (0-0.045)
[2021-03-30 13:26] LABS: D Dimer > 35200 ug/L FEU (0-500)
--- NOTE | 2021-03-30 13:38 | Emergency Department Note ---
Impression & Plan Acute respiratory failure with hypoxia, 2019 novel coronavirus-infected pneumonia (NCIP), Tachycardia ED Provider Note Provider: John Lewis MD DATE OF SERVICE: 03/30/2021 CHIEF COMPLAINT: Shortness of breath, hypoxia HISTORY OF PRESENT ILLNESS: Patient is a 65-year-old female past medical history including asthma, CHF, diabetes, GERD, and recent hospitalization for Covid pneumonia sent home on March 25 presenting today via ambulance with significant shortness of breath and respiratory distress. Patient evidently was sent home on between 2 to 5 L as needed of oxygen. Patient states over the last 2 to 3 days she developed worsening shortness of breath prickly today. Patient states she did not have any inhalers to use at home. EMS was then obtain IV access and given IM dose of terbutaline prior to arrival and place the patient on CPAP. EMS states on her home approximately 4-1/2 L of oxygen they noted a pulse ox in the 70s on room air. On CPAP patient has been around 90%. Patient states he feels quite short of breath but denies any pain. Denies significant abdominal discomfort or nausea or vomiting. Patient denies recent fevers. Patient has not vaccinated for Covid. REVIEW OF SYSTEMS: A total of 10 review of systems was obtained and negative except as stated above in the HPI. PAST MEDICAL HISTORY: As noted above MEDICATIONS: Reviewed home medications and currently on home oxygen 2 to 5 L SOCIAL HISTORY: Distant former smoker, lives at home PHYSICAL EXAM: GENERAL: alert and oriented appears quite short of breath with CPAP in place Head: normocephalic and atraumatic EYES: No injection, discharge or icterus. NECK: Trachea midline. Supple. ENT: Mucous membranes pink and moist. LUNGS: Airway patent. With tachypnea and increased work of breathing. Some slight crackles in the bases of lungs. HEART: Regular tachycardic rate and rhythm. No chest wall tenderness ABDOMEN: Soft and non-tender, without guarding or rebound. SKIN: Acyanotic, warm, dry, without rashes EXTREMITIES: Without significant leg swelling, tenderness or deformity NEUROLOGICAL: No focal deficits moving all extremities. No aphasia. No facial droop or slurred speech. EK bpm sinus tachycardia. No PVC or PAC. No acute ST segment elevation or depression. QTC 409. CONTINUOUS CARDIAC MONITORING: was ordered and showed a heart rate of 110s to 130s bpm in sinus tachycardia Patient's laboratory studies and imaging reviewed. Differential includes Reactive airway disease, pneumonia, pneumothorax, COPD, CHF, infections, cardiac ischemia, pulmonary embolism, musculoskeletal, gastrointestinal, as well as other pathologies. IMPRESSION/MEDICAL DECISION MAKING: Patient with hypoxia now requiring CPAP. Not initially tolerated BiPAP well. Patient significantly tachycardic. Unsure if this is related to her respiratory distress or the terbutaline she received prior to arrival. Patient with a chronic leukocytosis of 16 today and was 14-15 last week. Chest x-ray appears similar with a viral pneumonia pattern per radiology. Troponin is detectable but not abnormal. No evidence of acute hepatitis. No significant electrolyte abnormality. No evidence of significant leg swelling or pedal edema. No findings concerning for acute DVT of lower extremity on physical exam. D-dimer is significantly elevated however with her hypoxia and recent illness a CT of the chest to be completed. Procalcitonin was sent to help evaluate if possibly a bacterial source is at play & this was not significantly elevated. Patient again is denying significant fevers. Stabilized here on CPAP and felt more comfortable with this modality. Repeat Covid test was sent today and still positive. CTA is limited diagnostically secondary to respiratory motion but no large central PE. Some pneumomediastinum likely from her increased work of breathing but no evidence of pneumothorax. Will defer empiric anticoagulation at this time. Patient requesting high flow oxygen will see if she tolerates this better than the mask of the CPAP. Patient requires admission for further care. High flow nasal cannula was tolerated better by the patient and her heart rate began to improve some. Extensive prior hospitalization and previously was treated with dexamethasone as well as remdesivir. Given continued symptoms do not know that repeating these treatments be beneficial. Again will need further care here at the hospital. Hospitalist was contacted DIAGNOSIS: Hypoxic respiratory failure, tachycardia, COVID-19 pneumonia DISPOSITION: Hospitalist will evaluate Patient was agreeable with this plan. Critical Care I have personally spent 38 minutes of critical care time in the direct management of this patient. This includes bedside care, interpretation of diagnostic studies, and testing, discussion with consultants, patient, and family members, and other required patient management activities. These 38 minutes is in excess of all separately billable procedures. Past Med/Surg History Medical History Asthma CHF (congestive heart failure) Diabetes GERD (gastroesophageal reflux disease) No pertinent family history Surgical History No pertinent past surgical history Social History Smoking Status: Never smoker Tobacco Type: Cigarettes Hx Alcohol Use: No Hx Substance Use: No Preferred Language: Com[place]an Communication Ability: Effective [employer] Required: No Beliefs That Will Affect Care: None Current Living Situation: Spouse and Family Other Information That Helps Us Care for You: No Feels Safe at Home: Yes Safety Concerns: Feels Safe At This Time Assistive Devices: Glasses Allergies Allergies Allergy/AdvReac Type Severity Reaction Status Date / Time No Known Allergies Allergy Unknown Verified 03/30/21 15:10 Home Meds Home Medications Medication Instructions Recorded Confirmed fluticasone propionate 50 1 spray INTRANASAL UD 03/04/21 03/30/21 mcg/actuation nasal spray,suspension Previous Rx's Medication Instructions Recorded benzonatate 100 mg capsule 100 mg PO TID 7 Days #21 cap 03/25/21 ([facility]) insulin NPH-regular 70-30 U-100 15 unit SUBCUT QPM #9 ml 03/25/21 insulin 100 unit/mL subcutaneous pen (Novolin 70-30 FlexPen U-100 Insulin) insulin NPH-regular 70-30 U-100 30 unit SUBCUT DAILY #15 ml 03/25/21 insulin 100 unit/mL subcutaneous pen (Novolin 70-30 FlexPen U-100 Insulin) melatonin 3 mg tablet 3 mg PO HS PRN 30 Days #30 tab 03/25/21 Results & Data (ED) Vital Signs Vital Signs - 24 hr 03/30/21 12:11 03/30/21 12:18 03/30/21 12:20 Temperature 37 C Temperature Source Axillary Pulse Rate 135 H 135 H 135 H Pulse Rate [Right] Pulse Rate from SpO2 Sensor 135 H Pulse Rhythm Regular Regular Respiratory Rate 38 H 38 H 42 H Respiratory Effort / Characteristics Non-Labored Respiratory Depth Normal Respiratory Pattern Regular Blood Pressure 177/133 H 177/133 H Blood Pressure [Right Arm] Blood Pressure Mean 147 147 Blood Pressure Mean [Right Arm] Pulse Oximetry 88 L 90 90 Oxygen Delivery Method CPAP BiPAP Oxygen Flow Rate 10 10 Fraction of Inspired Oxygen 70 SaO2/FiO2 Ratio 125 Sepsis Recent Fever Within 48 Hours Yes Sepsis New/Unexplained Change in Mental Status No Sepsis Action Taken by Nursing Physician Notified 03/30/21 12:30 03/30/21 12:48 03/30/21 12:50 Temperature Temperature Source Pulse Rate 137 H 136 H Pulse Rate [Right] Pulse Rate from SpO2 Sensor 136 H Pulse Rhythm Respiratory Rate 41 H 33 H Respiratory Effort / Characteristics Spontaneous Respiratory Depth Normal Respiratory Pattern Tachypnea Blood Pressure 154/118 H Blood Pressure [Right Arm] Blood Pressure Mean 130 Blood Pressure Mean [Right Arm] Pulse Oximetry 91 91 91 Oxygen Delivery Method CPAP BiPAP Oxygen Flow Rate 10 10 Fraction of Inspired Oxygen 70 70 70 SaO2/FiO2 Ratio Sepsis Recent Fever Within 48 Hours Sepsis New/Unexplained Change in Mental Status Sepsis Action Taken by Nursing 03/30/21 13:00 03/30/21 13:44 03/30/21 14:00 Temperature Temperature Source Pulse Rate 130 H 124 H Pulse Rate [Right] Pulse Rate from SpO2 Sensor 131 H 127 H 124 H Pulse Rhythm Respiratory Rate 35 H 38 H Respiratory Effort / Characteristics Respiratory Depth Respiratory Pattern Blood Pressure 186/123 H 147/111 H Blood Pressure [Right Arm] Blood Pressure Mean 144 123 Blood Pressure Mean [Right Arm] Pulse Oximetry 90 94 91 Oxygen Delivery Method CPAP CPAP Oxygen Flow Rate 10 10 Fraction of Inspired Oxygen 70 70 SaO2/FiO2 Ratio Sepsis Recent Fever Within 48 Hours Sepsis New/Unexplained Change in Mental Status Sepsis Action Taken by Nursing 03/30/21 14:30 03/30/21 15:10 03/30/21 15:30 Temperature Temperature Source Pulse Rate 123 H 113 H Pulse Rate [Right] 128 H Pulse Rate from SpO2 Sensor 123 H 114 H Pulse Rhythm Respiratory Rate 38 H 22 29 H Respiratory Effort / Characteristics Spontaneous Short of Breath Respiratory Depth Respiratory Pattern Blood Pressure 167/102 H 114/82 Blood Pressure [Right Arm] Blood Pressure Mean 123 92 Blood Pressure Mean [Right Arm] Pulse Oximetry 94 93 94 Oxygen Delivery Method High Flow Nasal Cannula High Flow Nasal Cannula Oxygen Flow Rate 40 Fraction of Inspired Oxygen 90 SaO2/FiO2 Ratio Sepsis Recent Fever Within 48 Hours Sepsis New/Unexplained Change in Mental Status Sepsis Action Taken by Nursing 03/30/21 18:33 Temperature 36.7 C Temperature Source Oral Pulse Rate Pulse Rate [Right] 111 H Pulse Rate from SpO2 Sensor Pulse Rhythm Respiratory Rate 32 H Respiratory Effort / Characteristics Spontaneous Labored Short of Breath Respiratory Depth Shallow Respiratory Pattern Tachypnea Blood Pressure Blood Pressure [Right Arm] 130/102 H Blood Pressure Mean Blood Pressure Mean [Right Arm] 111 Pulse Oximetry 92 Oxygen Delivery Method High Flow Nasal Cannula Oxygen Flow Rate 30 Fraction of Inspired Oxygen 70 SaO2/FiO2 Ratio 131 Sepsis Recent Fever Within 48 Hours Sepsis New/Unexplained Change in Mental Status Sepsis Action Taken by Nursing Laboratory Data Result diagrams: 03/30/21 12:30 03/30/21 12:30 Lab Results 03/30/21 03/30/21 03/30/21 Range/Units 12:29 12:30 12:30 WBC 16.04 H (4.8-10.8) K/uL RBC 4.50 (4.2-5.4) M/uL Hgb 13.7 (12.0-16.0) g/dL POC Hgb 13.9 (12.0-16.0) g/dl Hct 41.9 (37-47) % POC Hct 41 (37-47) % MCV 93.1 (80-100) fL MCH 30.4 (25-34) pg MCHC 32.7 (32-36) g/dL RDW Std Deviation 48.7 H (36.4-46.3) fL RDW Coeff of Ralf 14.4 (11.5-14.5) % Plt Count 532 H (130-400) K/uL MPV 10.0 (7.4-10.4) fL Immature Gran % (Auto) 0.3 % Neut % (Auto) 64.1 % Lymph % (Auto) 28.2 % [place] % (Auto) 5.5 % Eos % (Auto) 1.7 % Baso % (Auto) 0.2 % Neut # (Auto) 10.28 H (1.4-6.5) K/uL Lymph # (Auto) 4.52 H (1.2-3.4) K/uL [place] # (Auto) 0.89 H (0.11-0.59) K/uL Eos # (Auto) 0.27 (0-0.5) K/uL Baso # (Auto) 0.03 (0-0.2) K/uL Immature Gran # (Auto) 0.05 H (0.00-0.02) K/uL PT (9.0-12.0) Seconds INR (0.9-1.1) APTT (21.0-31.0) Seconds PTT Ratio D-Dimer (0-500) ug/L FEU Specimen Type Arterial POC pH 7.39 (7.35-7.45) POC pCO2 51 H (35-46) mmHg POC pO2 68 L (80-95) mmHg POC HCO3 31 H (19-24) tomy/L POC Total CO2 33 H (24-31) mmol/L POC Base Excess 6.0 H (-9-1.8) tomy/L POC Sodium 142 (135-144) mmol/L Sodium 142 (136-145) mmol/L POC Potassium 3.7 (3.3-5.0) mmol/L Potassium 3.9 (3.5-5.1) mmol/L Chloride 106 (98-107) mmol/L Carbon Dioxide 28 (21-32) mmol/L Anion Gap 8.0 (3-11) BUN 11 (7-18) mg/dl Creatinine 0.70 (0.6-1.2) mg/dl Est Cr Clr Drug Dosing 87.2 ml/min Est GFR ( Amer) 105.4 ml/min Est GFR (Non-Af Amer) 90.9 ml/min BUN/Creatinine Ratio 15.9 (10-20) Glucose 149 H (70-99) mg/dl Lactate (0.4-2.0) mmol/L Calcium 9.2 (8.5-10.1) mg/dl Magnesium 2.5 H (1.8-2.4) mg/dl Total Bilirubin 0.9 (0.2-1) mg/dl AST 29 (15-37) U/L ALT 27 (12-78) U/L Alkaline Phosphatase 186 H (45-117) U/L Troponin I 0.019 (0-0.045) ng/ml C-Reactive Protein (0-0.29) mg/dl NT-Pro-B Natriuret Pep 281 (0-900) pg/ml Total Protein 8.1 (6.4-8.2) gm/dl Albumin 2.6 L (3.4-5.0) gm/dl Globulin 5.5 H (2.5-4.0) gm/dl Albumin/Globulin Ratio 0.5 L (0.9-2) Procalcitonin (0-0.5) ng/ml Specimen Hemolysis Urine Color Urine Appearance (Clear) Urine pH (4.5-7.5) Ur Specific [place] (1.000-1.030) Urine Protein (Negative) Urine Glucose (UA) (Negative) Urine Ketones (Negative) Urine Blood (Negative) Urine Nitrite (Negative) Urine Bilirubin (Negative) Urine Urobilinogen (Negative) Ur Leukocyte Esterase (Negative) Urine WBC (Auto) (0-5) /hpf Urine RBC (Auto) (0-4) /hpf U Hyaline Cast (Auto) (0-5) /lpf U Epithel Cells (Auto) (0-5) /lpf Urine Bacteria (Auto) (Negative) Urine Mucus (None Prsent) COVID-19 Eval Order SARS-CoV-2 (PCR) (Negative) 03/30/21 03/30/21 03/30/21 Range/Units 12:30 12:30 12:37 WBC (4.8-10.8) K/uL RBC (4.2-5.4) M/uL Hgb (12.0-16.0) g/dL POC Hgb (12.0-16.0) g/dl Hct (37-47) % POC Hct (37-47) % MCV (80-100) fL MCH (25-34) pg MCHC (32-36) g/dL RDW Std Deviation (36.4-46.3) fL RDW Coeff of Ralf (11.5-14.5) % Plt Count (130-400) K/uL MPV (7.4-10.4) fL Immature Gran % (Auto) % Neut % (Auto) % Lymph % (Auto) % [place] % (Auto) % Eos % (Auto) % Baso % (Auto) % Neut # (Auto) (1.4-6.5) K/uL Lymph # (Auto) (1.2-3.4) K/uL [place] # (Auto) (0.11-0.59) K/uL Eos # (Auto) (0-0.5) K/uL Baso # (Auto) (0-0.2) K/uL Immature Gran # (Auto) (0.00-0.02) K/uL PT 10.7 (9.0-12.0) Seconds INR 1.1 (0.9-1.1) APTT 24.7 (21.0-31.0) Seconds PTT Ratio 0.9 D-Dimer > 40440 H* (0-500) ug/L FEU Specimen Type POC pH (7.35-7.45) POC pCO2 (35-46) mmHg POC pO2 (80-95) mmHg POC HCO3 (19-24) tomy/L POC Total CO2 (24-31) mmol/L POC Base Excess (-9-1.8) tomy/L POC Sodium (135-144) mmol/L Sodium (136-145) mmol/L POC Potassium (3.3-5.0) mmol/L Potassium (3.5-5.1) mmol/L Chloride (98-107) mmol/L Carbon Dioxide (21-32) mmol/L Anion Gap (3-11) BUN (7-18) mg/dl Creatinine (0.6-1.2) mg/dl Est Cr Clr Drug Dosing ml/min Est GFR ( Amer) ml/min Est GFR (Non-Af Amer) ml/min BUN/Creatinine Ratio (10-20) Glucose (70-99) mg/dl Lactate (0.4-2.0) mmol/L Calcium (8.5-10.1) mg/dl Magnesium (1.8-2.4) mg/dl Total Bilirubin (0.2-1) mg/dl AST (15-37) U/L ALT (12-78) U/L Alkaline Phosphatase (45-117) U/L Troponin I (0-0.045) ng/ml C-Reactive Protein 5.50 H (0-0.29) mg/dl NT-Pro-B Natriuret Pep (0-900) pg/ml Total Protein (6.4-8.2) gm/dl Albumin (3.4-5.0) gm/dl Globulin (2.5-4.0) gm/dl Albumin/Globulin Ratio (0.9-2) Procalcitonin (0-0.5) ng/ml Specimen Hemolysis Urine Color Urine Appearance (Clear) Urine pH (4.5-7.5) Ur Specific [place] (1.000-1.030) Urine Protein (Negative) Urine Glucose (UA) (Negative) Urine Ketones (Negative) Urine Blood (Negative) Urine Nitrite (Negative) Urine Bilirubin (Negative) Urine Urobilinogen (Negative) Ur Leukocyte Esterase (Negative) Urine WBC (Auto) (0-5) /hpf Urine RBC (Auto) (0-4) /hpf U Hyaline Cast (Auto) (0-5) /lpf U Epithel Cells (Auto) (0-5) /lpf Urine Bacteria (Auto) (Negative) Urine Mucus (None Prsent) COVID-19 Eval Order Covid19 at [facility] SARS-CoV-2 (PCR) (Negative) 03/30/21 03/30/21 03/30/21 Range/Units 12:37 13:57 13:57 WBC (4.8-10.8) K/uL RBC (4.2-5.4) M/uL Hgb (12.0-16.0) g/dL POC Hgb (12.0-16.0) g/dl Hct (37-47) % POC Hct (37-47) % MCV (80-100) fL MCH (25-34) pg MCHC (32-36) g/dL RDW Std Deviation (36.4-46.3) fL RDW Coeff of Ralf (11.5-14.5) % Plt Count (130-400) K/uL MPV (7.4-10.4) fL Immature Gran % (Auto) % Neut % (Auto) % Lymph % (Auto) % [place] % (Auto) % Eos % (Auto) % Baso % (Auto) % Neut # (Auto) (1.4-6.5) K/uL Lymph # (Auto) (1.2-3.4) K/uL [place] # (Auto) (0.11-0.59) K/uL Eos # (Auto) (0-0.5) K/uL Baso # (Auto) (0-0.2) K/uL Immature Gran # (Auto) (0.00-0.02) K/uL PT (9.0-12.0) Seconds INR (0.9-1.1) APTT (21.0-31.0) Seconds PTT Ratio D-Dimer (0-500) ug/L FEU Specimen Type POC pH (7.35-7.45) POC pCO2 (35-46) mmHg POC pO2 (80-95) mmHg POC HCO3 (19-24) tomy/L POC Total CO2 (24-31) mmol/L POC Base Excess (-9-1.8) tomy/L POC Sodium (135-144) mmol/L Sodium (136-145) mmol/L POC Potassium (3.3-5.0) mmol/L Potassium (3.5-5.1) mmol/L Chloride (98-107) mmol/L Carbon Dioxide (21-32) mmol/L Anion Gap (3-11) BUN (7-18) mg/dl Creatinine (0.6-1.2) mg/dl Est Cr Clr Drug Dosing ml/min Est GFR ( Amer) ml/min Est GFR (Non-Af Amer) ml/min BUN/Creatinine Ratio (10-20) Glucose (70-99) mg/dl Lactate 2.7 H* (0.4-2.0) mmol/L Calcium (8.5-10.1) mg/dl Magnesium (1.8-2.4) mg/dl Total Bilirubin (0.2-1) mg/dl AST (15-37) U/L ALT (12-78) U/L Alkaline Phosphatase (45-117) U/L Troponin I (0-0.045) ng/ml C-Reactive Protein (0-0.29) mg/dl NT-Pro-B Natriuret Pep (0-900) pg/ml Total Protein (6.4-8.2) gm/dl Albumin (3.4-5.0) gm/dl Globulin (2.5-4.0) gm/dl Albumin/Globulin Ratio (0.9-2) Procalcitonin 0.19 (0-0.5) ng/ml Specimen Hemolysis Urine Color Urine Appearance (Clear) Urine pH (4.5-7.5) Ur Specific [place] (1.000-1.030) Urine Protein (Negative) Urine Glucose (UA) (Negative) Urine Ketones (Negative) Urine Blood (Negative) Urine Nitrite (Negative) Urine Bilirubin (Negative) Urine Urobilinogen (Negative) Ur Leukocyte Esterase (Negative) Urine WBC (Auto) (0-5) /hpf Urine RBC (Auto) (0-4) /hpf U Hyaline Cast (Auto) (0-5) /lpf U Epithel Cells (Auto) (0-5) /lpf Urine Bacteria (Auto) (Negative) Urine Mucus (None Prsent) COVID-19 Eval Order SARS-CoV-2 (PCR) POSITIVE A* (Negative) 03/30/21 03/30/21 Range/Units 15:52 16:04 WBC (4.8-10.8) K/uL RBC (4.2-5.4) M/uL Hgb (12.0-16.0) g/dL POC Hgb (12.0-16.0) g/dl Hct (37-47) % POC Hct (37-47) % MCV (80-100) fL MCH (25-34) pg MCHC (32-36) g/dL RDW Std Deviation (36.4-46.3) fL RDW Coeff of Ralf (11.5-14.5) % Plt Count (130-400) K/uL MPV (7.4-10.4) fL Immature Gran % (Auto) % Neut % (Auto) % Lymph % (Auto) % [place] % (Auto) % Eos % (Auto) % Baso % (Auto) % Neut # (Auto) (1.4-6.5) K/uL Lymph # (Auto) (1.2-3.4) K/uL [place] # (Auto) (0.11-0.59) K/uL Eos # (Auto) (0-0.5) K/uL Baso # (Auto) (0-0.2) K/uL Immature Gran # (Auto) (0.00-0.02) K/uL PT (9.0-12.0) Seconds INR (0.9-1.1) APTT (21.0-31.0) Seconds PTT Ratio D-Dimer (0-500) ug/L FEU Specimen Type POC pH (7.35-7.45) POC pCO2 (35-46) mmHg POC pO2 (80-95) mmHg POC HCO3 (19-24) tomy/L POC Total CO2 (24-31) mmol/L POC Base Excess (-9-1.8) tomy/L POC Sodium (135-144) mmol/L Sodium (136-145) mmol/L POC Potassium (3.3-5.0) mmol/L Potassium (3.5-5.1) mmol/L Chloride (98-107) mmol/L Carbon Dioxide (21-32) mmol/L Anion Gap (3-11) BUN (7-18) mg/dl Creatinine (0.6-1.2) mg/dl Est Cr Clr Drug Dosing ml/min Est GFR ( Amer) ml/min Est GFR (Non-Af Amer) ml/min BUN/Creatinine Ratio (10-20) Glucose (70-99) mg/dl Lactate 3.0 H* (0.4-2.0) mmol/L Calcium (8.5-10.1) mg/dl Magnesium (1.8-2.4) mg/dl Total Bilirubin (0.2-1) mg/dl AST (15-37) U/L ALT (12-78) U/L Alkaline Phosphatase (45-117) U/L Troponin I (0-0.045) ng/ml C-Reactive Protein (0-0.29) mg/dl NT-Pro-B Natriuret Pep (0-900) pg/ml Total Protein (6.4-8.2) gm/dl Albumin (3.4-5.0) gm/dl Globulin (2.5-4.0) gm/dl Albumin/Globulin Ratio (0.9-2) Procalcitonin (0-0.5) ng/ml Specimen Hemolysis Urine Color Dark Yellow Urine Appearance Clear (Clear) Urine pH 6.0 (4.5-7.5) Ur Specific [place] > 1.045 H (1.000-1.030) Urine Protein 1+ H (Negative) Urine Glucose (UA) Negative (Negative) Urine Ketones Trace H (Negative) Urine Blood Negative (Negative) Urine Nitrite Negative (Negative) Urine Bilirubin Negative (Negative) Urine Urobilinogen Negative (Negative) Ur Leukocyte Esterase Negative (Negative) Urine WBC (Auto) 1-5 (0-5) /hpf Urine RBC (Auto) 0-4 (0-4) /hpf U Hyaline Cast (Auto) 1-5 (0-5) /lpf U Epithel Cells (Auto) >30 H (0-5) /lpf Urine Bacteria (Auto) Negative (Negative) Urine Mucus Present A (None Prsent) COVID-19 Eval Order SARS-CoV-2 (PCR) (Negative) Administered Medications Discontinued Medications Ioversol (Optiray 320 125ml) 122 ml IV ONCE ONE Stop: 03/30/21 13:44 Last Admin: 03/30/21 13:44 Dose: 122 ml Documented by: [id number] Imaging Data Radiologist's Impression: Chest X-Ray 03/30/21 12:18 XR chest 1V portable HISTORY: Dyspnea COMPARISON: Chest 03/25/2021. FINDINGS: Right jugular Port-A-Cath terminates in the SVC. The heart remains mildly enlarged. No pleural fusions. No pneumothorax. Bilateral airspace opacities persist. These are similar to the prior study. IMPRESSION: No significant the bilateral airspace opacities likely representing a viral pneumonia. ACT 112: Negative or not required by law. Electronically signed by: Caden Dietrich M.D. 03/30/2021 1:10 PM Chest CTA 03/30/21 13:19 CT ANGIOGRAM OF THE CHEST CLINICAL HISTORY: Hypoxia. Dyspnea. Recent Covid. COMPARISON STUDY: Chest x-ray dated 03/30/2021. Chest CT dated 03/04/2021. TECHNIQUE: Following the IV administration of 122 cc of Optiray 320, CT angiogram of the chest was performed from the upper abdomen to the thoracic inlet utilizing the pulmonary embolus protocol. Images are reviewed in the axial, sagittal, and coronal planes. 3-D MIPS images are created and assessed. IV contrast was administered without complication. A dose lowering technique was utilized adhering to the principles of ALARA. The examination is signi ficantly degraded by motion artifact. CT DOSE: 830.48 mGy.cm FINDINGS: Thyroid: Imaged portions of the thyroid gland are normal in size and attenuation. Thoracic aorta: There is atherosclerotic calcification of the thoracic aorta, which is normal in caliber and demonstrates bovine variant arch anatomy. No dissection is seen. Pulmonary vasculature: The pulmonary trunk is normal in caliber. There are no filling defects identified in main pulmonary branches to suggest pulmonary embolus. The lobar, segmental, and subsegmental branches cannot be evaluated due to significant motion artifact. Heart: A right internal jugular central venous infusion port is in place. The heart is mildly enlarged and without pericardial effusion. Lungs and pleural spaces: Evaluation of the lung parenchyma is severely degraded by motion artifact. Multifocal groundglass consolidation is again seen throughout both lungs. This has worsened as compared to 03/04/2021. No pneumothorax is identified. The trachea appears clear. No large pleural effusion is identified. Mediastinum: There is pneumomediastinum. Mildly enlarged mediastinal lymph nodes measure up to 8 mm in short axis. [place]: Clear. Axillae: There is no axillary lymphadenopathy. Upper abdomen: Partially visualized upper abdominal viscera is within normal limits. Skeletal structures: The skeletal structures are osteopenic. No lytic or blastic bony lesions are seen. Intrathecal leads are noted in the lower thoracic spinal canal. IMPRESSION: 1. Severely motion compromised examination. This degrades diagnostic utility. 2. There is no evidence of central pulmonary embolus within the main pulmonary arteries. The majority of the pulmonary vessels could not be assessed due to severe motion artifact. Pulmonary embolus is not excluded. 3. Pneumomediastinum is new from previous. 4. Multifocal groundglass consolidation is again seen throughout both lungs. This has worsened as compared to 03/04/2021. ACT 112: Negative or not required by law. Electronically signed by: Hu Lee M.D. 03/30/2021 2:09 PM Discharge Plan Visit Data Chief Complaint: Respiratory Distress Stated Complaint: RESP FAILURE ED Provider: [facility] ED Midlevel Provider: Matthias Cazares Discharge Problem: Acute respiratory failure with hypoxia, 2019 novel coronavirus-infected pneumonia (NCIP), Tachycardia Patient Disposition: Admitted As Inpatient Condition: Critical
[2021-03-30] MEDS ORDERED: OPTIRAY 320 125ml IV ONE (13:43)
--- NOTE | 2021-03-30 14:10 | CT Scan Report ---
CT ANGIOGRAM OF THE CHEST CLINICAL HISTORY: Hypoxia. Dyspnea. Recent Covid. COMPARISON STUDY: Chest x-ray dated 03/30/2021. Chest CT dated 03/04/2021. TECHNIQUE: Following the IV administration of 122 cc of Optiray 320, CT angiogram of the chest was pe rformed from the upper abdomen to the thoracic inlet utilizing the pulmonary embolus protocol. Images are reviewed in the axial, sagittal, and coronal planes. 3-D MIPS images are created and assessed. I V contrast was administered without complication. A dose lowering technique was utilized adhering to the principles of ALARA. The examination is significantly degraded by motion artifact. CT DOSE: 830.48 mGy.cm FINDINGS: Thyroid: Imaged portions of the thyroid gland are normal in size and attenuation. Thoracic aorta: There is atherosclerotic calcification of the thoracic aorta, which is normal in jeremy patrick and demonstrates bovine variant arch anatomy. No dissection is seen. Pulmonary vasculature: The pulmonary trunk is normal in caliber. There are no filling defects identif ied in main pulmonary branches to suggest pulmonary embolus. The lobar, segmental, and subsegmental b ranches cannot be evaluated due to significant motion artifact. Heart: A right internal jugular central venous infusion port is in place. The heart is mildly enlarge d and without pericardial effusion. Lungs and pleural spaces: Evaluation of the lung parenchyma is severely degraded by motion artifact. Multifocal groundglass consolidation is again seen throughout both lungs. This has worsened as compar ed to 03/04/2021. No pneumothorax is identified. The trachea appears clear. No large pleural effusion is identified. Mediastinum: There is pneumomediastinum. Mildly enlarged mediastinal lymph nodes measure up to 8 mm i n short axis. Barbara: Clear. Axillae: There is no axillary lymphadenopathy. Upper abdomen: Partially visualized upper abdominal viscera is within normal limits. Skeletal structures: The skeletal structures are osteopenic. No lytic or blastic bony lesions are see n. Intrathecal leads are noted in the lower thoracic spinal canal. IMPRESSION: 1. Severely motion compromised examination. This degrades diagnostic utility. 2. There is no evidence of central pulmonary embolus within the main pulmonary arteries. The majority of the pulmonary vessels could not be assessed due to severe motion artifact. Pulmonary embolus is n ot excluded. 3. Pneumomediastinum is new from previous. 4. Multifocal groundglass consolidation is again seen throughout both lungs. This has worsened as com pared to 03/04/2021. ACT 112: Negative or not required by law. Electronically signed by: Hu Lee M.D. 03/30/2021 2:09 PM
--- NOTE | 2021-03-30 14:37 | Electrocardiogram Report ---
Test Reason : Blood Pressure : / mmHG Vent. Rate : 136 BPM Atrial Rate : 136 BPM P-R Int : 150 ms QRS Dur : 066 ms QT Int : 272 ms P-R-T Axes : 041 -13 035 degrees QTc Int : 409 ms Sinus tachycardia Inferior infarct , age undetermined Abnormal ECG When compared with ECG of 04-MAR-2021 20:44, Vent. rate has increased BY 53 BPM Inferior infarct is now Present Nonspecific T wave abnormality no longer evident in Anterior leads Confirmed by Noel Robertson ([id number]) on 03/30/2021 2:37:41 PM Referred By: REFERRED SELF Confirmed By:Noel Robertson
[2021-03-30 15:46] LABS: iSTAT Arterial Blood Gas pCO2 51 mmHg (35-46); iSTAT Arterial Blood Gas pH 7.39 (7.35-7.45); iSTAT Hematocrit 41 % (37-47); iSTAT Hemoglobin 13.9 g/dl (12.0-16.0); iSTAT Potassium 3.7 mmol/L (3.3-5.0); iSTAT Sodium 142 mmol/L (135-144)
[2021-03-30 15:47] LABS: iSTAT Arterial Blood Gas HCO3 31 meg/L (19-24); iSTAT Arterial Blood Gas pO2 68 mmHg (80-95); iSTAT Carbon Dioxide 33 mmol/L (24-31); iSTAT Sample Type Arterial
--- NOTE | 2021-03-30 16:26 | History & Physical Report ---
Date of Service March 30, 2021 Assessment & Plan (1) Acute on chronic respiratory failure with hypoxia: (2) History of COVID-19: (3) Post-COVID syndrome: Plan: -Admit to tele -Patient presenting from home with reports of worsening shortness of breath. Recently admitted to [facility] 03/05 - 03/25 for hypoxic respiratory failure due to COVID 19 pneuonia. Completed courses of dexamethasone and remdesivir while admitted. Discharged on 4L 02 continuous. -On presentation to ED, patient in resp distress and was placed on CPAP however did not tolerate and was placed on Hi [place]ley 40L 90% FiO2 - has had much improvement. -CTA negative for large PE however shows worsening consolidation and pneumomediastinum. -Procalcitonin negative, CRP pending -WBC 16K - at recent baseline -Treatment options limited at this point - continue supportive care with O2 supplementation, nebs, self proning, flutter valve, IS -pulm consult, input appreciated (4) Diabetes: Plan: -hgb a1c 12.4 02/2021 -Lantus/Novolog (5) DVT prophylaxis: Plan: -SQ Lovenox History of Present Illness Chief Complaint: Shortness of Breath Primary Care Provider: Demetrio Bravo 65 year old female with PMH IDDM and other problems listed below who presents to the ED for evaluation of shortness of breath. Recently admitted to [facility] 03/05 - 03/25 for acute hypoxic respiratory failure due to COVID 19 pneumonia. Patient completed courses of dexamethasone and remdesivir while admitted. She was discharged home on 4L O2 continuous. Patient reports having shortness of breath with minimal exertion. Has been monitoring pulse ox at home and reports with a short ambulation, she would desaturate into the 70s and would take a long time to recover. She has had a cough productive for white sputum. She also reports rhinorrhea. No fevers or chills. Denies chest pain. No lightheadedness, dizziness, diaphoresis, or syncopal events. Has had a poor appetite for the past few days. No abdominal pain, nausea, vomiting, or diarrhea. Denies urinary symptoms. Upon arrival to the ED, patient was in respiratory distress. She was placed on CPAP but did not tolerate the mask. She was then placed on Hi Harley, 40L 90% FiO2. CTA negative for large PE however shows worsening consolidation and Pneumomediastinum. Patient continues to test positive for COVID 19. Allergies Allergy/AdvReac Type Severity Reaction Status Date / Time No Known Allergies Allergy Unknown Verified 03/30/21 15:10 Home Medications Medication Instructions Recorded Confirmed Type fluticasone propionate 50 1 spray INTRANASAL UD 03/04/21 03/30/21 History mcg/actuation nasal spray,suspension benzonatate 100 mg capsule 100 mg PO TID 7 Days #21 cap 03/25/21 03/30/21 Rx (Tessalon Perles) insulin NPH-regular 70-30 U-100 15 unit SUBCUT QPM #9 ml 03/25/21 03/30/21 Rx insulin 100 unit/mL subcutaneous pen (Novolin 70-30 FlexPen U-100 Insulin) insulin NPH-regular 70-30 U-100 30 unit SUBCUT DAILY #15 ml 03/25/21 03/30/21 Rx insulin 100 unit/mL subcutaneous pen (Novolin 70-30 FlexPen U-100 Insulin) melatonin 3 mg tablet 3 mg PO HS PRN 30 Days #30 tab 03/25/21 03/30/21 Rx Past Med/Surg History Medical History Asthma CHF (congestive heart failure) Diabetes GERD (gastroesophageal reflux disease) No pertinent family history Surgical History No pertinent past surgical history Social History Smoking Status: Former smoker Tobacco Type: Cigarettes Hx Alcohol Use: No Hx Substance Use: No Preferred Language: Stateless Communication Ability: Effective Formula Weigher Required: No Beliefs That Will Affect Care: None Current Living Situation: Spouse and Family Feels Safe at Home: Yes Assistive Devices: Glasses, Oxygen - Continuous and Walker Review of Systems Review of Systems: ROS per HPI, all other systems reviewed and negative Physical Exam Constitutional: well developed, well nourished and + ill appearing; no acute distress Eyes: PERRL, conjunctivae normal, anicteric sclerae ENMT: Ears: no external ear abnormality Nose: no external nose abnormality Mouth: + dry oral mucous membranes Respiratory: normal respiratory effort; no respiratory distress Auscultation: + diminished lung sounds Cardiovascular: Rate/Rhythm: regular rhythm and + tachycardic Vessels: normal peripheral pulses Extremities: + edema (+1 edema BLE) Gastrointestinal (Abdomen): normal bowel sounds, soft, nontender, no hepatosplenomegaly Musculoskeletal: no cyanosis or clubbing, extremities motor strength 5/5 Skin: no rashes, warm and dry Neurologic: PERRL, EOMI, accommodation nl, no face palsy, no dysarthria Psychiatric: A+Ox3, euthymic affect Results & Data Results & Data ([facility]) Vital Signs (Past 12 Hours) Vital Signs Temp Pulse Pulse Resp BP Pulse Ox 03/30/21 15:10 128 H 22 93 03/30/21 14:30 123 H 38 H 167/102 H 94 03/30/21 14:00 124 H 38 H 147/111 H 91 03/30/21 13:44 94 03/30/21 13:00 130 H 35 H 186/123 H 90 03/30/21 12:50 136 H 33 H 91 03/30/21 12:48 91 03/30/21 12:30 137 H 41 H 154/118 H 91 03/30/21 12:20 135 H 42 H 177/133 H 90 03/30/21 12:18 135 H 38 H 90 03/30/21 12:11 37 C 135 H 38 H 177/133 H 88 L Laboratory Results Short CBC 03/30/21 Range/Units 12:30 WBC 16.04 H (4.8-10.8) K/uL Hgb 13.7 (12.0-16.0) g/dL Hct 41.9 (37-47) % Plt Count 532 H (130-400) K/uL BMP 03/30/21 12:30 Sodium 142 Potassium 3.9 Chloride 106 Carbon Dioxide 28 BUN 11 Creatinine 0.70 Glucose 149 H Calcium 9.2 Cardiac Enzymes 03/30/21 Range/Units 12:30 Troponin I 0.019 (0-0.045) ng/ml Liver Function 03/30/21 Range/Units 12:30 Total Bilirubin 0.9 (0.2-1) mg/dl AST 29 (15-37) U/L ALT 27 (12-78) U/L Alkaline Phosphatase 186 H (45-117) U/L Albumin 2.6 L (3.4-5.0) gm/dl Diagnostic Findings Chest X-Ray 03/30/21 12:18 XR chest 1V portable HISTORY: Dyspnea COMPARISON: Chest 03/25/2021. FINDINGS: Right jugular Port-A-Cath terminates in the SVC. The heart remains mildly enlarged. No pleural fusions. No pneumothorax. Bilateral airspace opacities persist. These are similar to the prior study. IMPRESSION: No significant the bilateral airspace opacities likely representing a viral pneumonia. ACT 112: Negative or not required by law. Electronically signed by: Caden Dietrich M.D. 03/30/2021 1:10 PM Chest CTA 03/30/21 13:19 CT ANGIOGRAM OF THE CHEST CLINICAL HISTORY: Hypoxia. Dyspnea. Recent Covid. COMPARISON STUDY: Chest x-ray dated 03/30/2021. Chest CT dated 03/04/2021. TECHNIQUE: Following the IV administration of 122 cc of Optiray 320, CT angiogram of the chest was performed from the upper abdomen to the thoracic inlet utilizing the pulmonary embolus protocol. Images are reviewed in the axial, sagittal, and coronal planes. 3-D MIPS images are created and assessed. IV contrast was administered without complication. A dose lowering technique was utilized adhering to the principles of ALARA. The examination is significantly degraded by motion artifact. CT DOSE: 830.48 mGy.cm FINDINGS: Thyroid: Imaged portions of the thyroid gland are normal in size and attenuation . Thoracic aorta: There is atherosclerotic calcification of the thoracic aorta, which is normal in caliber and demonstrates bovine variant arch anatomy. No dissection is seen. Pulmonary vasculature: The pulmonary trunk is normal in caliber. There are no filling defects identified in main pulmonary branches to suggest pulmonary embolus. The lobar, segmental, and subsegmental branches cannot be evaluated due to significant motion artifact. Heart: A right internal jugular central venous infusion port is in place. The heart is mildly enlarged and without pericardial effusion. Lungs and pleural spaces: Evaluation of the lung parenchyma is severely degraded by motion artifact. Multifocal groundglass consolidation is again seen throughout both lungs. This has worsened as compared to 03/04/2021. No pneumothorax is identified. The trachea appears clear. No large pleural effusion is identified. Mediastinum: There is pneumomediastinum. Mildly enlarged mediastinal lymph nodes measure up to 8 mm in short axis. Barbara: Clear. Axillae: There is no axillary lymphadenopathy. Upper abdomen: Partially visualized upper abdominal viscera is within normal limits. Skeletal structures: The skeletal structures are osteopenic. No lytic or blastic bony lesions are seen. Intrathecal leads are noted in the lower thoracic spinal canal. IMPRESSION: 1. Severely motion compromised examination. This degrades diagnostic utility. 2. There is no evidence of central pulmonary embolus within the main pulmonary arteries. The majority of the pulmonary vessels could not be assessed due to sev ere motion artifact. Pulmonary embolus is not excluded. 3. Pneumomediastinum is new from previous. 4. Multifocal groundglass consolidation is again seen throughout both lungs. This has worsened as compared to 03/04/2021. ACT 112: Negative or not required by law. Electronically signed by: Hu Lee M.D. 03/30/2021 2:09 PM Code Status & VTE Plan VTE Prophylaxis Plan VTE Prophylaxis will be ordered: Yes Supervising Physician Co-Signing Physician Notes 65-year-old female with PMH of asthma, DM, CHF, GERD, and recent ED 03/05 visit for Covid [03/05-03/25] who had fairly stayed stable on 4 to 5 L oxygen for many days prior to discharge presented again to our ED 03/30 with worsening shortness of breath. Patient had completed courses of dexamethasone and remdesivir in her prior admission and was discharged in stable condition on 4 L continuous nasal cannula oxygen. Patient is coughing with clear white mucus, no fever, lab jj WBC is elevated, pro-Arnaldo negative, imaging shows worsening lung findings. Will get pulmonology on board. Upon examination: GENERAL: Alert and oriented x3. NAD, on 40 L. HEENT: No pallor, no icterus. Pupils equal, round and reactive to light. Oral mucosa moist. NECK: No JVD, no neck masses. HEART: S1 and S2 heard. Regular rate and rhythm. Tachycardic. No murmur, no gallop. RESPIRATORY SYSTEM: Normal AP diameter. No accessory muscle use. No wheezing, no crackles. Diminished breath sounds with bilateral occasional crackles. ABDOMEN: Soft, bowel sounds present, nontender, no distention. CENTRAL NERVOUS SYSTEM: Alert and oriented x3. No facial droop. Speech is clear. Obeys simple commands. Moves extremities. EXTREMITIES: No edema, no erythema seen. I have seen and examined the patient and have discussed the case with the provider above. I agree with the assessment and plan as stated.
[2021-03-30 17:02] LABS: Appearance Urine Clear (Clear); Bacteria Urine Automated Negative (Negative); Bilirubin Urine Negative (Negative); Blood Urine Negative (Negative); Color Urine Dark Yellow; Epithelial Cell Urine Auto >30 /lpf (0-5); Glucose Urine UA Negative (Negative); Ketones Urine Trace (Negative); Leukocyte Esterase Urine Negative (Negative); Nitrite Urine Negative (Negative); Protein Urine 1+ (Negative); RBC Urine Automated 0-4 /hpf (0-4); Specific Gravity Urine > 1.045 (1.000-1.030); Urobilinogen Urine Negative (Negative)
[2021-03-30 17:26] LABS: Mucus Urine Present (None Prsent)
[2021-03-30] MEDS ORDERED: DEXTROSE 50% 50 ML SYRINGE IV PRN (19:10)
[2021-03-30] MEDS ORDERED: GLUCOSE 40% GEL 15 GM TUBE PO PRN (19:10)
[2021-03-30] MEDS ORDERED: MELATONIN 3 MG TAB PO PRN (19:10)
[2021-03-30] MEDS ORDERED: GLUCAGON FOR INJ 1 MG VIAL SQ PRN (19:10)
[2021-03-30] MEDS ORDERED: GLUCOSE 10 TABS/TUBE PO PRN (19:10)
[2021-03-30] MEDS: ENOXAPARIN INJ 40 MG/0.4 ML SYR SQ SCH (20:21)
[2021-03-30] MEDS: BENZONATATE 100 MG CAPSULE PO SCH (20:21)
[2021-03-30] MEDS: INSULIN ASPART 100 UNITS/ML 3 ML PEN SC SCH (20:21)
[2021-03-30] MEDS: INSULIN GLARGINE SOLOSTAR 100 UNITS/ML 3 ML PEN SC SCH (20:22)
[2021-03-31 07:25] LABS: Hematocrit (blood only) 34.9 % (37-47); Hemoglobin 11.4 g/dL (12.0-16.0); Mean Corpuscular Hemoglobin 29.8 pg (25-34); Mean Corpuscular Hgb Conc 32.7 g/dL (32-36); Mean Corpuscular Volume 91.4 fL (80-100); Platelet Count 466 K/uL (130-400); RDW Coefficient of Variation 14.5 % (11.5-14.5); RDW Standard Deviation 48.2 fL (36.4-46.3); Red Blood Count 3.82 M/uL (4.2-5.4); White Blood Count 10.93 K/uL (4.8-10.8)
[2021-03-31 07:41] LABS: BUN Creatinine Ratio 20.8 (10-20); Calcium 8.8 mg/dl (8.5-10.1); Creatinine Clr Calc Pharmacy 105.2 ml/min; Est GFR (African American) 112.1 ml/min; Est GFR (Non-African American) 96.7 ml/min; Potassium 4.3 mmol/L (3.5-5.1)
[2021-03-31] MEDS ORDERED: PIPERACILL/TAZOBAC CONSULT ACTIVE PRN (08:33)
[2021-03-31] MEDS: BENZONATATE 100 MG CAPSULE PO SCH ×3 (08:52→20:47)
[2021-03-31] MEDS: INSULIN ASPART 100 UNITS/ML 3 ML PEN SC SCH ×4 (08:52→20:37)
[2021-03-31] MEDS: INSULIN GLARGINE SOLOSTAR 100 UNITS/ML 3 ML PEN SC SCH ×2 (08:53→20:37)
[2021-03-31] MEDS ORDERED: PIPERACILLIN/TAZOBACTAM 3.375 GM in DEXTROSE 5% 100 ML IV ONE (09:00)
[2021-03-31 10:12] LABS: iSTAT Potassium 3.9 mmol/L (3.3-5.0); iSTAT Sodium 134 mmol/L (135-144)
[2021-03-31 10:13] LABS: iSTAT Arterial Blood Gas HCO3 27 meg/L (19-24); iSTAT Arterial Blood Gas pCO2 33 mmHg (35-46); iSTAT Arterial Blood Gas pO2 81 mmHg (80-95); iSTAT Carbon Dioxide 28 mmol/L (24-31); iSTAT Hematocrit 35 % (37-47); iSTAT Hemoglobin 11.9 g/dl (12.0-16.0)
[2021-03-31 10:14] LABS: iSTAT Arterial Blood Gas pH 7.53 (7.35-7.45)
--- NOTE | 2021-03-31 11:25 | Pulmonary Consultation ---
Date of Consultation March 31, 2021 Assessment & Plan (1) Acute on chronic respiratory failure with hypoxia: (2) History of COVID-19: (3) Pneumomediastinum: (4) Pericardial effusion: Impression: 65-year-old female with Covid pneumonia now over 1 month out now with hypoxemia. Her CT scan does demonstrate fibrotic changes although it is difficult to ascertain whether or not there has been significant progression. She does have new pneumomediastinum, likely secondary to Silver effect. Recommendations: 1. This is a difficult situation. Unclear if higher dose steroids as studied i n the post ARDS dexamethasone study would be beneficial 1 month out. Many of the changes identified on her CT scan appear to be fibrotic and would be unlikely to respond to additional immune suppression. There may be some groundglass opacities which could show improvement. However higher dose daija roids would place the patient at risk of potentially worsening her pneumomediastinum. It seems reasonable to pursue a trial of 20 mg a day for 5 days followed by 10 mg a day for 5 days and follow the patient clinically closely. 2. Pneumomediastinum: Suspect this is due to the Silver effect. No evidence of pneumothorax. Continue to manage conservatively. The air should resorb over time. No indication for Boerhaave syndrome or esophageal disruption as the patient denies any nausea vomiting or retching. Would avoid positive airway pressure at this point time. 3. With a negative procalcitonin I do not think the patient is secondarily infected and will hold antibiotics for now. If the patient should have fevers, or purulent sputum, or other lower respiratory infectious symptomatology, additional evaluation may be warranted. 4. Continue to wean oxygen as tolerated. Defend oxygen saturation of 88%. 5. Patient does have a pericardial effusion identified on CT scan. Unclear if this is contributing. Defer to primary service on whether or not echocardiogram or cardiac consultation may be beneficial. Will continue to follow with you. Thanks for the opportunity to assist with management of this patient. History of Present Illness Attending Physician: Jean Vincent MD History of Present Illness Asked by hospitalist to evaluate this patient with history of Covid pneumonia and worsening respiratory status with progressive pulmonary fibrosis and pneumomediastinum. History is obtained from review the electronic medical record as well as discussion with the patient. Patient is a 65-year-old obese female who was initially admitted to the hospital the end of February. She tested + 03/05/2021 for Covid. She completed a course of remdesivir and has been on dexamethasone. Initial pulmonary consultation was obtained 928 due to hypoxemic respiratory failure. Her work-up was negative and she was managed conservatively and eventually dismissed from the hospital on 4 L of nasal cannula on 03/25. The patient returned to the emergency room 03/30 with complaints of chest tightness and shortness of breath. She was found to be hypoxemic and placed on high flow. She was poorly tolerant of CPAP in the emergency room. She denies any chest pain but does have some chest tightness in the middle of her chest. She has been transitioned to heated high flow oxygen Allergies Allergy/AdvReac Type Severity Reaction Status Date / Time No Known Allergies Allergy Unknown Verified 03/30/21 15:10 Home Medications Medication Instructions Recorded Confirmed Type fluticasone propionate 50 1 spray INTRANASAL UD 03/04/21 03/30/21 History mcg/actuation nasal spray,suspension benzonatate 100 mg capsule 100 mg PO TID 7 Days #21 cap 03/25/21 03/30/21 Rx (Tessalon Perles) insulin NPH-regular 70-30 U-100 15 unit SUBCUT QPM #9 ml 03/25/21 03/30/21 Rx insulin 100 unit/mL subcutaneous pen (Novolin 70-30 FlexPen U-100 Insulin) insulin NPH-regular 70-30 U-100 30 unit SUBCUT DAILY #15 ml 03/25/21 03/30/21 Rx insulin 100 unit/mL subcutaneous pen (Novolin 70-30 FlexPen U-100 Insulin) melatonin 3 mg tablet 3 mg PO HS PRN 30 Days #30 tab 03/25/21 03/30/21 Rx Patient History Medical History Asthma CHF (congestive heart failure) Diabetes GERD (gastroesophageal reflux disease) No pertinent family history Surgical History No pertinent past surgical history Social History Smoking Status: Never smoker Tobacco Type: Cigarettes Hx Alcohol Use: No Hx Substance Use: No Preferred Language: Japanese Communication Ability: Effective Pump Station Operator Required: No Beliefs That Will Affect Care: None Current Living Situation: Spouse and Family Other Information That Helps Us Care for You: No Feels Safe at Home: Yes Safety Concerns: Feels Safe At This Time Assistive Devices: Oxygen - Continuous Review of Systems Review of Systems: see admission H&P. No changes Physical Exam Constitutional: well developed, well nourished and + ill appearing; no acute distress Eyes: PERRL, conjunctivae normal, anicteric sclerae ENMT: Ears: no external ear abnormality Nose: no external nose abnormality Respiratory: normal respiratory effort; no respiratory distress Auscultation: + diminished lung sounds Cardiovascular: Rate/Rhythm: regular rhythm and + tachycardic Vessels: normal peripheral pulses Extremities: + edema (+1 edema BLE) Gastrointestinal (Abdomen): normal bowel sounds, soft, nontender, no hepatosplenomegaly Musculoskeletal: no cyanosis or clubbing, extremities motor strength 5/5 Skin: no rashes, warm and dry Neurologic: PERRL, EOMI, accommodation nl, no face palsy, no dysarthria Psychiatric: A+Ox3, euthymic affect Results & Data Results & Data ([facility]) Vital Signs (Past 12 Hours) Vital Signs Temp Pulse Pulse Resp BP BP Pulse Ox 03/31/21 11:17 111 H 20 91 03/31/21 10:59 36.7 C 109 H 20 131/69 92 03/31/21 07:51 92 H 28 H 93 03/31/21 07:21 36.6 C 92 H 22 109/82 95 03/31/21 03:56 36.5 C 99 H 22 125/86 93 03/31/21 03:36 100 H 24 93 03/31/21 02:09 97 H 03/30/21 23:56 110 H 26 H 93 Laboratory Results 03/31/21 06:56 03/31/21 06:56 Presentation procalcitonin 0.19 and follow-up 0.[address] ANGIOGRAM OF THE CHEST 03/30/12 - independently reviewed. CLINICAL HISTORY: Hypoxia. Dyspnea. Recent Covid. COMPARISON STUDY: Chest x-ray dated 03/30/2021. Chest CT dated 03/04/2021. TECHNIQUE: Following the IV administration of 122 cc of Optiray 320, CT angiogram of the chest was performed from the upper abdomen to the thoracic inlet utilizing the pulmonary embolus protocol. Images are reviewed in the axial, sagittal, and coronal planes. 3-D MIPS images are created and assessed. IV contrast was administered without complication. A dose lowering technique was utilized adhering to the principles of ALARA. The examination is significan tly degraded by motion artifact. CT DOSE: 830.48 mGy.cm FINDINGS: Thyroid: Imaged portions of the thyroid gland are normal in size and attenuation. Thoracic aorta: There is atherosclerotic calcification of the thoracic aorta, which is normal in caliber and demonstrates bovine variant arch anatomy. No dissection is seen. Pulmonary vasculature: The pulmonary trunk is normal in caliber. There are no filling defects identified in main pulmonary branches to suggest pulmonary embolus. The lobar, segmental, and subsegmental branches cannot be evaluated due to significant motion artifact. Heart: A right internal jugular central venous infusion port is in place. The heart is mildly enlarged and without pericardial effusion. Lungs and pleural spaces: Evaluation of the lung parenchyma is severely degraded by motion artifact. Multifocal groundglass consolidation is again seen throughout both lungs. This has worsened as compared to 03/04/2021. No pneumothorax is identified. The trachea appears clear. No large pleural effusion is identified. Mediastinum: There is pneumomediastinum. Mildly enlarged mediastinal lymph nodes measure up to 8 mm in short axis. Barbara: Clear. Axillae: There is no axillary lymphadenopathy. Upper abdomen: Partially visualized upper abdominal viscera is within normal limits. Skeletal structures: The skeletal structures are osteopenic. No lytic or blastic bony lesions are seen. Intrathecal leads are noted in the lower thoracic spinal canal. IMPRESSION: 1. Severely motion compromised examination. This degrades diagnostic utility. 2. There is no evidence of central pulmonary embolus within the main pulmonary arteries. The majority of the pulmonary vessels could not be assessed due to severe motion artifact. Pulmonary embolus is not excluded. 3. Pneumomediastinum is new from previous. 4. Multifocal groundglass consolidation is again seen throughout both lungs. This has worsened as compared to 03/04/2021. PG Care Time/CCT Total # of Minutes Spent Total Time Spent with Patient: Total time spent is greater than 50% in coordination of care (as documented) at patient's floor/unit and/or counseling patient: Coding Level of Care Code 02449 Initial Inpt Care Lvl 3 Diagnoses Acute on chronic respiratory failure with hypoxia J96.21 History of COVID-19 Z86.16 Pneumomediastinum J98.2 Pericardial effusion I31.3
[2021-03-31] MEDS ORDERED: dexAMETHasone 20 MG in SYRINGE 0 ML IV SCH (12:00)
[2021-03-31] MEDS: dexAMETHasone 20 MG in DEXTROSE 5% 25 ML IV SCH (13:00)
[2021-03-31] MEDS: LEVALBUTEROL TARTRATE 15 GM HFA.AER.AD INH PRN ×2 (15:15→18:42)
[2021-03-31] MEDS ORDERED: PIPERACILLIN/TAZOBACTAM 3.375 GM in DEXTROSE 5% 100 ML IV SCH (16:00)
--- NOTE | 2021-03-31 16:10 | Hospitalist Progress Note ---
Date of Service March 31, 2021 Assessment & Plan (1) Acute on chronic respiratory failure with hypoxia: Plan: 65-year-old female with PMH of asthma, DM, CHF, GERD, and recent ED 03/05 visit for Covid [03/05-03/25] who had fairly stayed stable on 4 to 5 L oxygen for many days prior to discharge presented again to our ED 03/30 with worsening shortness of breath. Patient had completed courses of dexamethasone and remdesivir in her prior admission and was discharged in stable condition on 4 L continuous nasal cannula oxygen. Patient is being managed for the following: #. Acute on chronic respiratory failure with hypoxia: #. History of COVID-19: #. Pneumomediastinum #. Pericardial effusion -Patient presenting from home with reports of worsening shortness of breath. Recently admitted to [facility] 03/05 - 03/25 for hypoxic respiratory failure due to COVID 19 pneumonia. Completed courses of dexamethasone and remdesivir while admitted. Discharged on 4L O2 continuous. -On presentation to ED, patient in resp distress and was placed on CPAP however did not tolerate and was placed on [place] 40L 90% FiO2 - has had much improvement after worse. -Admitting CTA negative for large PE however shows worsening consolidation and pneumomediastinum. -Procalcitonin negative, CRP pending at presentation -Admitting WBC elevated, trending down -03/30 blood culture positive for GPC clusters likely within 12 hours, hence started her on broad-spectrum penicillin, await final results. Pro-Arnaldo 0.48 on 03/31 up trended from 0.19 on 03/30. Patient afebrile, trend WBC and pro-Arnaldo as appropriate. -Treatment options limited at this point - continue supportive care with O2 supplementation, nebs, self proning, flutter valve, IS -pulm consult: Patient started on steroid 03/31 for acute on chronic respiratory failure, conservative management and avoid CPAP/BiPAP for pneumomediastinum, recommends discontinuing antibiotic -We will get cardiology input pneumomediastinum #. Diabetes: -hgb a1c 12.4 02/2021 -Lantus/Novolog #. DVT prophylaxis: -SQ Lovenox Admission and Anticipated Discharge Date Admission Date: March 30, 2021 Subjective Patient was sitting up in chair, on 13 L oxygen, NAD, no new acute events overnight. Patient denies any headache/dizziness/chest pain/increased shortness of breath/other review of symptoms. In fact patient feels that she is better. Patient is eating and moving bowels okay. Physical Exam Physical Exam: GENERAL: Alert and oriented x3. NAD, on 30 L. HEENT: No pallor, no icterus. Pupils equal, round and reactive to light. Oral mucosa moist. NECK: No JVD, no neck masses. HEART: S1 and S2 heard. Regular rate and rhythm. Tachycardic. No murmur, no gallop. RESPIRATORY SYSTEM: Normal AP diameter. No accessory muscle use. No wheezing, no crackles. Diminished breath sounds, no crackles appreciated. ABDOMEN: Soft, bowel sounds present, nontender, no distention. CENTRAL NERVOUS SYSTEM: Alert and oriented x3. No facial droop. Speech is clear. Obeys simple commands. Moves extremities. EXTREMITIES: No edema, no erythema seen. Results & Data Results & Data ([facility]) Vital Signs (Past 12 Hours) Vital Signs Temp Pulse Resp BP BP Pulse Ox 03/31/21 15:17 118 H 22 93 03/31/21 15:15 117 H 22 93 03/31/21 11:17 111 H 20 91 03/31/21 10:59 36.7 C 109 H 20 131/69 92 03/31/21 07:51 92 H 28 H 93 03/31/21 07:21 36.6 C 92 H 22 109/82 95 03/31/21 03:56 36.5 C 99 H 22 125/86 93
[2021-03-31] MEDS ORDERED: METOPROLOL TARTRATE 1 MG/ML VIAL IV STA (19:34)
[2021-03-31] MEDS: ENOXAPARIN INJ 40 MG/0.4 ML SYR SQ SCH (20:47)
[2021-04-01 07:54] LABS: Hematocrit (blood only) 35.4 % (37-47); Hemoglobin 11.5 g/dL (12.0-16.0); Mean Corpuscular Hemoglobin 29.8 pg (25-34); Mean Corpuscular Hgb Conc 32.5 g/dL (32-36); Mean Corpuscular Volume 91.7 fL (80-100); Mean Platelet Volume 10.1 fL (7.4-10.4); Platelet Count 553 K/uL (130-400); RDW Coefficient of Variation 14.4 % (11.5-14.5); RDW Standard Deviation 48.2 fL (36.4-46.3); Red Blood Count 3.86 M/uL (4.2-5.4); White Blood Count 11.94 K/uL (4.8-10.8)
[2021-04-01] MEDS: BENZONATATE 100 MG CAPSULE PO SCH ×3 (08:55→21:05)
[2021-04-01] MEDS: INSULIN ASPART 100 UNITS/ML 3 ML PEN SC SCH ×4 (09:00→21:10)
[2021-04-01] MEDS: INSULIN GLARGINE SOLOSTAR 100 UNITS/ML 3 ML PEN SC SCH (09:04)
[2021-04-01] MEDS: dexAMETHasone 20 MG in DEXTROSE 5% 25 ML IV SCH (13:09)
--- NOTE | 2021-04-01 14:21 | Pulmonology Progress Note ---
Date of Service April 01, 2021 Assessment & Plan (1) Acute on chronic respiratory failure with hypoxia: (2) History of COVID-19: (3) Pneumomediastinum: (4) Pericardial effusion: Plan: Impression: 65-year-old female with Covid pneumonia and hypoxemia. Her CT scan does demonstrate fibrotic changes although it is difficult to ascertain whether or not there has been significant progression. She does have new pneumomediastinum, likely secondary to Silver effect. Recommendations: 1. Continue dexamethasone 20 mg a day for 5 days followed by 10 mg a day for 5 days and follow the patient clinically closely. It is somewhat encouraging that her oxygen requirement is decreased. 2. Pneumomediastinum: Suspect this is due to the Silver effect. No evidence o f pneumothorax. Continue to manage conservatively. We will repeat chest x-ray in the morning 3. Continue to wean oxygen as tolerated. Defend oxygen saturation of 88%. Continue out of bed to chair as tolerated. 4. Pericardial effusion per primary service. Echo showed no evidence of tamponade but effusion did appear to be somewhat loculated Will continue to follow with you. Call if questions Admission and Anticipated Discharge Date Admission Date: March 30, 2021 Subjective Patient seen and examined. EMR reviewed. The patient reports that she is feeling somewhat better today. She continues to have some tightness in her chest. No difficulty swallowing. Review of Systems Review of Systems: unchanged from prior Physical Exam Constitutional: well developed and well nourished; no acute distress Respiratory: normal respiratory effort; no respiratory distress Auscultation: + diminished lung sounds Cardiovascular: Rate/Rhythm: regular rhythm and + tachycardic Vessels: normal peripheral pulses Extremities: + edema (+1 edema BLE) Gastrointestinal (Abdomen): normal bowel sounds, soft, nontender, no hepatosplenomegaly Musculoskeletal: no cyanosis or clubbing, extremities motor strength 5/5 Skin: no rashes, warm and dry Neurologic: PERRL, EOMI, accommodation nl, no face palsy, no dysarthria Psychiatric: A+Ox3, euthymic affect Results & Data Results & Data ([facility]) Vital Signs (Past 12 Hours) Vital Signs Temp Pulse Pulse Resp BP Pulse Ox 04/01/21 11:36 36.4 C L 104 H 20 138/89 92 04/01/21 09:00 94 H 10/13/21 08:00 36.8 C 102 H 24 136/82 95 04/01/21 04:05 36.7 C 102 H 18 143/79 H 94 Laboratory Results 04/01/21 06:49 03/31/21 06:56 Diagnostic Findings no new imaging. PG Care Time/CCT Total # of Minutes Spent Total Time Spent with Patient: Total time spent is greater than 50% in coordination of care (as documented) at patient's floor/unit and/or counseling patient: Coding Level of Care Code 96417 Subseq Hosp Care Lvl 2 Diagnoses Acute on chronic respiratory failure with hypoxia J96.21 History of COVID-19 Z86.16 Pneumomediastinum J98.2 Pericardial effusion I31.3
--- NOTE | 2021-04-01 15:04 | Cardiology Consultation ---
Date of Consultation April 01, 2021 Assessment & Plan (1) Pericardial effusion: (2) Tachycardia: (3) Acute respiratory failure with hypoxia: (4) Pulmonary hypertension: Patient is a 65-year-old female with prior longstanding history of asthma/COPD and obstructive sleep apnea with recent clinical course notable extended treatment for Covid 19 induced pneumonia. Patient still with dyspnea and marked fatigue with minimal exertion persistent substantial chest x-ray and CT scan infiltration. Patient referred due to concerns of pericardial effusion on CT scan. Echocardiogram today demonstrates a small predominantly loculated pericardial effusion of nonhemodynamic significance. The left ventricle was hyperdynamic and function with EF greater than 70% with small overall cavity size. There is indirect evidence of elevated pulmonary pressures There is no findings suggest acute cardiac decline though I do feel patient would benefit from further heart rate control and would recommend cautious institution of low-dose beta-seven therapy will begin today to aid in diastolic filling time and rapid heart rate response to activity. Discussed with patient noted potential risk of increased bronchospastic disease We will follow History of Present Illness Reason for Consultation: Abnormal CT, pericardial effusion, respiratory distress Requesting Physician: Dr. Vincent Attending Physician: Theresa Parisi, History of Present Illness Patient is a 65-year-old female without prior history of cardiac disease. Her prior history is notable for asthma/chronic obstructive lung disease, obstructive sleep apnea. Recent course notable for extended hospitalization with Covid pneumonia with persistent chest x-ray and CAT scan abnormalities. Patient presents with persistent dyspnea notes heart pounding with minimal exertion. CT scan of the chest 03/30/2021 demonstrated pneumomediastinum and small pericardial effusion Patient is referred for further evaluation. Currently patient feels comfortable at rest notes no chest pains. Notes no prior history of myocardial infarction angina or congestive heart failure. Notes no syncope or near syncope. No current fevers. Patient is aware of rapid heart rate with minimal exertion and marked fatigue with as much as short steps and ambulation in the room No acute bleeding difficulties. No history of valvular disease rheumatic fever scarlet fever. No history of TIA or stroke. Family history of notable for stroke and heart attack in multiple members Allergies Allergy/AdvReac Type Severity Reaction Status Date / Time No Known Allergies Allergy Unknown Verified 03/30/21 15:10 Home Medications Medication Instructions Recorded Confirmed Type fluticasone propionate 50 1 spray INTRANASAL UD 03/04/21 03/30/21 History mcg/actuation nasal spray,suspension benzonatate 100 mg capsule 100 mg PO TID 7 Days #21 cap 03/25/21 03/30/21 Rx (Tessalon Perles) insulin NPH-regular 70-30 U-100 15 unit SUBCUT QPM #9 ml 03/25/21 03/30/21 Rx insulin 100 unit/mL subcutaneous pen (Novolin 70-30 FlexPen U-100 Insulin) insulin NPH-regular 70-30 U-100 30 unit SUBCUT DAILY #15 ml 03/25/21 03/30/21 Rx insulin 100 unit/mL subcutaneous pen (Novolin 70-30 FlexPen U-100 Insulin) melatonin 3 mg tablet 3 mg PO HS PRN 30 Days #30 tab 03/25/21 03/30/21 Rx Patient History Medical History Asthma CHF (congestive heart failure) Diabetes GERD (gastroesophageal reflux disease) No pertinent family history Surgical History No pertinent past surgical history Social History Smoking Status: Never smoker Tobacco Type: Cigarettes Hx Alcohol Use: No Hx Substance Use: No Preferred Language: Kittitian Communication Ability: Effective Bottler Required: No Beliefs That Will Affect Care: None Current Living Situation: Spouse and Family Other Information That Helps Us Care for You: No Feels Safe at Home: Yes Safety Concerns: Feels Safe At This Time Assistive Devices: Oxygen - Continuous Review of Systems Review of Systems: All systems reviewed & are unremarkable except as noted in HPI & below Physical Exam Constitutional: Mildly obese female dyspneic but in no acute distress Eyes: PERRL, conjunctivae normal, anicteric sclerae ENMT: external ear and nose normal, oropharynx normal Neck: trachea midline, no thyromegaly Respiratory: Auscultation: + diminished lung sounds and + crackles Cardiovascular: RRR, no murmur, no edema Chest (Breasts): normal inspection/palpation of breasts Gastrointestinal (Abdomen): normal bowel sounds, soft, nontender, no hepatosplenomegaly Neurologic: PERRL, EOMI, accommodation nl, no face palsy, no dysarthria Psychiatric: A+Ox3, euthymic affect Results & Data ([facility]) Vital Signs (Past 12 Hours) Vital Signs Temp Pulse Pulse Resp BP Pulse Ox 04/01/21 11:36 36.4 C L 104 H 20 138/89 92 04/01/21 09:00 94 H 04/01/21 08:00 36.8 C 102 H 24 136/82 95 04/01/21 04:05 36.7 C 102 H 18 143/79 H 94 Laboratory Results Laboratory Results - last 24 hr 03/31/21 03/31/21 04/01/21 16:52 20:36 06:49 WBC 11.94 H RBC 3.86 L Hgb 11.5 L Hct 35.4 L MCV 91.7 MCH 29.8 MCHC 32.5 RDW Std Deviation 48.2 H RDW Coeff of Ralf 14.4 Plt Count 553 H MPV 10.1 POC Glucose 212 H 169 H 04/01/21 04/01/21 07:34 11:26 WBC RBC Hgb Hct MCV MCH MCHC RDW Std Deviation RDW Coeff of Ralf Plt Count MPV POC Glucose 138 H 176 H
--- NOTE | 2021-04-01 15:26 | Hospitalist Progress Note ---
Date of Service April 01, 2021 Assessment & Plan (1) Acute on chronic respiratory failure with hypoxia: (2) Pneumomediastinum: (3) Pulmonary hypertension: (4) Post-COVID syndrome: Plan: Completed courses of dexamethasone and remdesivir on recent admission prior to discharge. Returned with worsening shortness of breath progressed to hypoxic respiratory failure. Per pulmonology she has a CT scan demonstrating fibrotic changes although it is difficult to ascertain whether or not there has been significant progression. She also has a new meet pneumomediastinum likely secondary to Silver effect. Patient reports she is not coughing excessively at this time. She may benefit from cough syrup as needed. Per [place] recommendations we will continue dexamethasone 20 mg a day for 5 days followed by 10 mg a day for 5 days and follow the patient clinically closely. Continue to wean oxygen as tolerated. (5) Pericardial effusion: (6) Physical deconditioning: (7) Tachycardia: (8) Obesity: Plan: Loculated pericardial effusion seen on echocardiogram today. Cardiology consulted. Pericardial effusion is of nonhemodynamic significance, however, cautious institution of low dose Toprol-XL started by cardiology. Effusion is loculated. Notably patient is significantly physically deconditioned with her prolonged illness, contributing to her tachycardia and symptoms of dyspnea with minimal exertion. Continue efforts to mobilize her out of bed as tolerated. (9) Gram-positive bacteremia: Plan: New gram-positive bacteremia, initiation with vancomycin pending further sensitivities and speciation. TTE today did not reveal any evidence of vegetation. Will allow vancomycin to run for least 24 hours then repeat blood cultures to ensure clearance of the bacteria. Source is uncertain but she does have an open skin wound related to her shingles rash on her buttock. Contamination also considered. (10) Herpes zoster: Plan: Patient reportedly had shingles rash during last admission, however this is not documented and no treatment was noted. Although rash is present for greater than 72 hours will give her Valtrex for 7 days. Rash notably still slightly open and itchy to patient. Continue contact precautions (11) DMII (diabetes mellitus, type 2): Plan: Continue basal bolus insulin. Blood sugar is currently at goal despite high- dose dexamethasone. Continue to monitor closely. (12) DVT prophylaxis: Plan: Lovenox Full code Disposition-continue PCU Theresa Parisi [facility] Ad[facility] and Anticipated Discharge Date Admission Date: March 30, 2021 Subjective 65-year-old female recently admitted for Covid pneumonia discharged home on elevated amounts of supplemental oxygen and became progressively worse requiring readmission. Now requiring high flow oxygenation. She is also on high doses of steroids per pulmonology recommendations. She reports feeling confused and would like to know what her studies are showing. We went through her echocardiogram report this morning and we discussed in detail the pathophysiology regarding why she cannot breathe. We also discussed pneumomediastinum and what that meant. She was tearful and reported feeling scared that she would not recover from this illness. We ultimately decided to try and stay positive at the end of the discussion. She denies any pain today or worsening shortness of breath. She just is mostly bothered by her tachycardia and windedness with any minimal exertion. Review of Systems Review of Systems: At least ten systems were reviewed and negative except as indicated in HPI above. Physical Exam Physical Exam: CONSTITUTIONAL: obese, vitals as above, generally ill- appearing, NAD EYES: normal conjunctivae, no scleral icterus ENT: external ear and nose normal, MMM RESPIRATORY: min rhonchi heard sporadically, no rales or wheezes, normal respiratory effort CARDIOVASCULAR: tachy rate and rhythm, S1 and 2 heard without murmurs, gallops or rubs, no JVD, no peripheral edema GASTROINTESTINAL: soft, nontender, ND, no guarding MUSCULOSKELETAL: generalized weakness, requires assistance sitting up in bed. Head is normocephalic and atraumatic SKIN: warm and dry, +rash on her left buttock that is golf-ball sized posteriorly. Grouped vesicles on erythematous base. NEUROLOGIC: CN 2-12 grossly intact, normal cognition, normal speech PSYCHIATRIC: alert cooperative and oriented to person, place and time. Results & Data Results & Data ([facility]) Vital Signs (Past 12 Hours) Vital Signs Temp Pulse Pulse Resp BP Pulse Ox 04/01/21 11:36 36.4 C L 104 H 20 138/89 92 04/01/21 09:00 94 H 04/01/21 08:00 36.8 C 102 H 24 136/82 95 04/01/21 04:05 36.7 C 102 H 18 143/79 H 94 Laboratory Results Short CBC 04/01/21 Range/Units 06:49 WBC 11.94 H (4.8-10.8) K/uL Hgb 11.5 L (12.0-16.0) g/dL Hct 35.4 L (37-47) % Plt Count 553 H (130-400) K/uL Medications Administered Current Inpatient Medications Acetaminophen (Acetaminophen 325 Mg Tab) 650 mg PO Q4H PRN PRN Reason: Pain or Fever Stop: 04/29/21 19:09 Benzonatate (Benzonatate 100 Mg Capsule) 100 mg PO TID NELL Stop: 04/29/21 20:59 Last Admin: 04/01/21 13:09 Dose: 100 mg Documented by: Dextrose (Dextrose 50% 50 Ml Syringe) 25 - 50 ml IV UD PRN; Protocol PRN Reason: Hypoglycemia Protocol Stop: 04/29/21 19:09 Enoxaparin Sodium (Enoxaparin Inj 40 Mg/0.4 Ml Syr) 40 mg SQ Q24H NELL Stop: 04/29/21 19:59 Last Admin: 03/31/21 20:47 Dose: 40 mg Documented by: Glucagon (Glucagon For Inj 1 Mg Vial) 1 mg SQ UD PRN; Protocol PRN Reason: Hypoglycemia Protocol Stop: 04/29/21 19:09 Glucose (Glucose 10 Tabs/Tube) 4 - 8 tabs PO UD PRN; Protocol PRN Reason: Hypoglycemia Protocol Stop: 04/29/21 19:09 Glucose (Glucose 40% Gel 15 Gm Tube) 15 - 30 gm PO UD PRN; Protocol PRN Reason: Hypoglycemia Protocol Stop: 04/29/21 19:09 Dexamethasone 20 mg/ Dextrose 30 mls @ 0.833 mls/min IV Q24H NELL Stop: 04/05/21 12:59 Last Infusion: 04/01/21 13:15 Dose: Infused Documented by: Insulin Aspart (Insulin Aspart 100 Units/Ml 3 Ml Pen) 0 units SC ACHS NELL Stop: 04/29/21 19:59 Last Admin: 04/01/21 13:05 Dose: 6 units Documented by: Insulin Glargine (Insulin Glargine Solostar 100 Units/Ml 3 Ml Pen) 10 units SC BID NELL Stop: 04/29/21 20:59 Last Admin: 04/01/21 09:04 Dose: 10 units Documented by: Levalbuterol HCl (Levalbuterol Tartrate 15 Gm Hfa.Aer.Ad) 2 puffs INH Q4R PRN PRN Reason: Shortness Of Breath Or Wheezing Stop: 04/30/21 12:49 Last Admin: 03/31/21 18:42 Dose: 2 puffs Documented by: Melatonin (Melatonin 3 Mg Tab) 3 mg PO HS PRN PRN Reason: insomnia Stop: 04/29/21 19:09 Metoprolol Succinate (Metoprolol Succ 25mg Ext Rel Tab) 12.5 mg PO QAM NELL Stop: 05/01/21 15:29 Miscellaneous (Carbohydrates For Hypoglycemia ) 15 - 30 gm PO UD PRN PRN Reason: Hypoglycemia Protocol Stop: 04/29/21 19:09
[2021-04-01] MEDS ORDERED: VANCOMYCIN CONSULT ACTIVE PRN (15:38)
[2021-04-01] MEDS ORDERED: VANCOMYCIN HCL 2,250 MG in SODIUM CHLORIDE 0.9% 500 ML IV ONE (15:45)
[2021-04-01 16:46] LABS: Creatinine Clr Calc Pharmacy 91.7 ml/min; Est GFR (African American) 106.9 ml/min; Est GFR (Non-African American) 92.2 ml/min
[2021-04-01] MEDS: METOPROLOL SUCC 25MG EXT REL TAB PO SCH (17:26)
[2021-04-01] MEDS ORDERED: LEVALBUTEROL HCL 1.25 MG/3 ML NEB NEB PRN (20:07)
[2021-04-01] MEDS ORDERED: INSULIN GLARGINE SOLOSTAR 100 UNITS/ML 3 ML PEN SC SCH (21:00)
[2021-04-01] MEDS: ENOXAPARIN INJ 40 MG/0.4 ML SYR SQ SCH (21:05)
[2021-04-01] MEDS: valACYclovir HCL 500 MG TABLET PO SCH (21:06)
[2021-04-02] MEDS: VANCOMYCIN HCL 1,250 MG in SODIUM CHLORIDE 0.9% 250 ML IV SCH ×2 (03:26→13:35)
[2021-04-02 06:58] LABS: Hematocrit (blood only) 35.4 % (37-47); Hemoglobin 11.5 g/dL (12.0-16.0); Mean Corpuscular Hemoglobin 29.6 pg (25-34); Mean Corpuscular Hgb Conc 32.5 g/dL (32-36); Mean Platelet Volume 10.1 fL (7.4-10.4); Platelet Count 558 K/uL (130-400); RDW Coefficient of Variation 13.9 % (11.5-14.5); Red Blood Count 3.89 M/uL (4.2-5.4); White Blood Count 9.33 K/uL (4.8-10.8)
[2021-04-02 07:35] LABS: BUN Creatinine Ratio 17.9 (10-20); C Reactive Protein 4.57 mg/dl (0-0.29); Calcium 8.5 mg/dl (8.5-10.1); Creatinine Clr Calc Pharmacy 111.4 ml/min; Est GFR (African American) 114.1 ml/min; Est GFR (Non-African American) 98.4 ml/min; Magnesium 2.5 mg/dl (1.8-2.4); Potassium 4.4 mmol/L (3.5-5.1)
--- NOTE | 2021-04-02 07:56 | XRay Report ---
XR chest 1V portable HISTORY: 65 years-old Female pneumomediastinum follow-up study in a patient with reported pneumomedi astinum COMPARISON: Chest radiograph and CTA chest 03/30/2021 TECHNIQUE: Portable AP view of the chest FINDINGS: Right IJ central venous catheter is unchanged. Cardiomegaly. Extensive bilateral mixed interstitial a nd alveolar opacities redemonstrated are again most pronounced in the mid and lower lung zone promine nt distribution. Findings have not significantly changed from comparison. No acute fracture. Question ed trace pneumomediastinum. IMPRESSION: 1. Cardiomegaly with unchanged extensive bilateral pulmonary opacities compatible with viral pneumoni a. 2. Probable trace pneumomediastinum is again noted. No pneumothorax. ACT 112: Negative or not required by law. The above report was generated using voice recognition software. It may contain grammatical, syntax o r spelling errors. Electronically signed by: Jessee Llamas M.D. 04/02/2021 7:55 AM
[2021-04-02] MEDS: LEVALBUTEROL TARTRATE 15 GM HFA.AER.AD INH PRN (08:05)
[2021-04-02] MEDS: valACYclovir HCL 500 MG TABLET PO SCH ×3 (08:56→20:24)
[2021-04-02] MEDS: BENZONATATE 100 MG CAPSULE PO SCH ×3 (08:56→20:24)
[2021-04-02] MEDS: METOPROLOL SUCC 25MG EXT REL TAB PO SCH ×2 (08:56→20:23)
[2021-04-02] MEDS ORDERED: FUROSEMIDE 20 MG in SYRINGE 0 ML IV ONE (09:07)
[2021-04-02] MEDS: INSULIN ASPART 100 UNITS/ML 3 ML PEN SC SCH ×4 (10:04→21:03)
[2021-04-02] MEDS: INSULIN GLARGINE SOLOSTAR 100 UNITS/ML 3 ML PEN SC SCH ×2 (10:05→21:04)
[2021-04-02] MEDS ORDERED: FUROSEMIDE 40 MG/4 ML VIAL IV ONE (10:15)
--- NOTE | 2021-04-02 12:52 | Pharmacy Report ---
Pharmacy Abx Dose Short Note - Date of Service April 02, 2021 - Assessment & Plan Assessment * 65 year old F receiving vancomycin for treatment of possible bacteremia. Blood cultures obtained on 03/30 with 2 of 2 with Staph species (non-MSSA, non-MRSA per PCR results) consistent with coag negative Staph. Repeat blood cultures planned for 24 hours after initiation of vancomycin per provider note yesterday * Procalcitonin trended up from 03/30 to 03/31 and was as high as 0.48 * WBC was elevated to 12 but is now wnl after initiation of vancomycin yesterday. Zaira remains afebrile Vancomycin * Dosing per AUC (with goal 400-600 mcg/mL*hr) is appropriate for this patient and is superior to using trough goals * Dose below equates to an estimated AUC of 476 mcg/mL*hr with associated *steady state* trough of 14.2 mcg/mL Plan * Vancomycin 1250 mg IV q12h * Trough 04/03 @ 0130 Pharmacy will continue to follow and will adjust dose/frequency as necessary. Thank you.
[2021-04-02] MEDS: dexAMETHasone 20 MG in DEXTROSE 5% 25 ML IV SCH (13:34)
--- NOTE | 2021-04-02 14:23 | Cardiology Progress Note ---
Date of Service April 02, 2021 Assessment & Plan (1) Tachycardia: (2) Acute respiratory failure with hypoxia: (3) Gram-positive bacteremia: (4) Pericardial effusion: (5) Pneumomediastinum: Plan: Complex female with issues as outlined progressive pulmonary infiltrates with possible superimposed bacteremia. Chest CT with pneumomediastinum and small pericardial effusion. Patient continues to complain of dyspnea with minimal exertion. Heart rates and blood pressure remain elevated echocardiogram with hyperdynamic LV function and significant pulmonary hypertension Plan: Patient being treated for underlying pulmonary issues. Agree with single dose of IV furosemide this morning to keep I's and O's negative. We will increase metoprolol succinate to 12.5 mg twice per day. If blood pressures remain persistently elevated could trial low-dose topical nitrates for blood pressure and preload reduction cautiously. (Nitropaste may be removed if any hemodynamic instability.) Admission and Anticipated Discharge Date Admission Date: March 30, 2021 Subjective Chart was reviewed, telemetry reviewed. Care discussed with caregivers, Covid staff Pulmonary status remains marginal with patient dyspneic with minimal exertion. Heart rate did appear to respond to low-dose beta-seven initially but trending slightly lower. Blood pressures are elevated Patient frustrated regarding underlying illness Results & Data ([facility]) Vital Signs (Past 12 Hours) Vital Signs Temp Pulse Pulse Resp BP Pulse Ox 04/02/21 10:49 36.6 C 108 H 20 166/106 H 90 04/02/21 08:07 93 H 22 91 04/02/21 08:06 93 H 30 H 91 04/02/21 08:00 76 04/02/21 07:03 36.4 C L 81 24 141/88 H 91 04/02/21 03:46 36.5 C 91 H 20 158/96 H 92 04/02/21 02:42 80 19 94 Laboratory Results Laboratory Results - last 24 hr 04/01/21 04/01/21 04/01/21 16:07 17:03 20:28 WBC RBC Hgb Hct MCV MCH MCHC RDW Std Deviation RDW Coeff of Ralf Plt Count MPV Sodium Potassium Chloride Carbon Dioxide Anion Gap BUN Creatinine 0.67 Est Cr Clr Drug Dosing 91.7 Est GFR ( Amer) 106.9 Est GFR (Non-Af Amer) 92.2 BUN/Creatinine Ratio Glucose POC Glucose 153 H 377 H* Calcium Magnesium C-Reactive Protein 04/01/21 04/01/21 04/02/21 20:44 20:45 00:23 WBC RBC Hgb Hct MCV MCH MCHC RDW Std Deviation RDW Coeff of Ralf Plt Count MPV Sodium Potassium Chloride Carbon Dioxide Anion Gap BUN Creatinine Est Cr Clr Drug Dosing Est GFR ( Amer) Est GFR (Non-Af Amer) BUN/Creatinine Ratio Glucose POC Glucose 324 H* 338 H* 279 H Calcium Magnesium C-Reactive Protein 04/02/21 04/02/21 04/02/21 06:16 06:16 08:06 WBC 9.33 RBC 3.89 L Hgb 11.5 L Hct 35.4 L MCV 91.0 MCH 29.6 MCHC 32.5 RDW Std Deviation 46.0 RDW Coeff of Ralf 13.9 Plt Count 558 H MPV 10.1 Sodium 137 Potassium 4.4 Chloride 106 Carbon Dioxide 29 Anion Gap 2.0 L BUN 10 Creatinine 0.55 L Est Cr Clr Drug Dosing 111.4 Est GFR ( Amer) 114.1 Est GFR (Non-Af Amer) 98.4 BUN/Creatinine Ratio 17.9 Glucose 222 H POC Glucose 232 H Calcium 8.5 Magnesium 2.5 H C-Reactive Protein 4.57 H 04/02/21 04/02/21 13:25 13:26 WBC RBC Hgb Hct MCV MCH MCHC RDW Std Deviation RDW Coeff of Ralf Plt Count MPV Sodium Potassium Chloride Carbon Dioxide Anion Gap BUN Creatinine Est Cr Clr Drug Dosing Est GFR ( Amer) Est GFR (Non-Af Amer) BUN/Creatinine Ratio Glucose POC Glucose 306 H* 307 H* Calcium Magnesium C-Reactive Protein
--- NOTE | 2021-04-02 14:54 | Pulmonology Progress Note ---
Date of Service April 02, 2021 Assessment & Plan (1) Acute on chronic respiratory failure with hypoxia: (2) History of COVID-19: (3) Pneumomediastinum: (4) Pericardial effusion: Plan: Impression: 65-year-old female with Covid pneumonia and hypoxemia. Her CT scan does demonstrate fibrotic changes although it is difficult to ascertain whether or not there has been significant progression. She does have new pneumomediastinum, likely secondary to Silver effect. Recommendations: 1. Continue dexamethasone 20 mg a day for 5 days followed by 10 mg a day for 5 days and follow the patient clinically closely. There is not much that can be done to decrease fibrotic changes at this point time. 2. Pneumomediastinum: Suspect this is due to the Silver effect. X-ray showed no progression of the pneumomediastinum and no evidence of a pneumothorax. Continue to follow clinically 3. Continue to wean oxygen as tolerated. Defend oxygen saturation of 88%. Co ntinue out of bed to chair as tolerated. Advised the patient that it is unclear at this point time how much her oxygen requirement may improve over time and will just have to see how she responds. She is frustrated by this news. Will continue to follow with you. Call if questions Admission and Anticipated Discharge Date Admission Date: March 30, 2021 Subjective Patient seen and examined. EMR reviewed. She had escalation in her oxygen requirement from yesterday. She states she is trying to be up to the chair as much as tolerated. Her chest tightness is gotten much better. She is not expectorating any phlegm and denies any wheezing. Review of Systems Review of Systems: Negative except as noted in HPI Physical Exam Constitutional: well developed and well nourished; no acute distress ENMT: Ears: no external ear abnormality Nose: no external nose abnormality Respiratory: normal respiratory effort; no respiratory distress Auscultation: + diminished lung sounds Cardiovascular: Rate/Rhythm: regular rhythm and + tachycardic Vessels: normal peripheral pulses Extremities: + edema (+1 edema BLE) Gastrointestinal (Abdomen): normal bowel sounds, soft, nontender, no hepatosplenomegaly Musculoskeletal: no cyanosis or clubbing, extremities motor strength 5/5 Skin: no rashes, warm and dry Neurologic: PERRL, EOMI, accommodation nl, no face palsy, no dysarthria Psychiatric: A+Ox3, euthymic affect Results & Data Results & Data ([facility]) Vital Signs (Past 12 Hours) Vital Signs Temp Pulse Pulse Resp BP Pulse Ox 04/02/21 10:49 36.6 C 108 H 20 166/106 H 90 04/02/21 08:07 93 H 22 91 04/02/21 08:06 93 H 30 H 91 04/02/21 08:00 76 04/02/21 07:03 36.4 C L 81 24 141/88 H 91 04/02/21 03:46 36.5 C 91 H 20 158/96 H 92 Laboratory Results 04/02/21 06:16 04/02/21 06:16 Diagnostic Findings No new imaging PG Care Time/CCT Total # of Minutes Spent Total Time Spent with Patient: Total time spent is greater than 50% in coordination of care (as documented) at patient's floor/unit and/or counseling patient: Coding Level of Care Code 55242 Subseq Hosp Care Lvl 2 Diagnoses Acute on chronic respiratory failure with hypoxia J96.21 History of COVID-19 Z86.16 Pneumomediastinum J98.2 Pericardial effusion I31.3
[2021-04-02] MEDS: NITROGLYCERIN 2% OINTMENT 30GM TUBE EXT SCH ×2 (15:45→20:31)
[2021-04-02] MEDS ORDERED: SODIUM CHLORIDE 0.65% NA SOLN 45 ML (OCEAN) ONE (15:49)
[2021-04-02] MEDS ORDERED: PHARMACY GLYCEMIC MGMT CONSULT PRN (18:32)
--- NOTE | 2021-04-02 18:33 | Hospitalist Progress Note ---
Date of Service April 02, 2021 Assessment & Plan (1) Acute on chronic respiratory failure with hypoxia: (2) Pneumomediastinum: (3) Post-COVID syndrome: Plan: Completed courses of dexamethasone and remdesivir on recent admission prior to discharge. Returned with worsening shortness of breath progressed to hypoxic respiratory failure. Per pulmonology she has a CT scan demonstrating fibrotic changes although it is difficult to ascertain whether or not there has been significant progression. She also has a new meet pneumomediastinum likely secondary to Silver effect-appears improved on CXR this am. Patient reports she is not coughing excessively at this time--Robitussin AC given PRN. Per Pulm recommendations we will continue dexamethasone 20 mg a day for 5 days followed by 10 mg a day for 5 days and follow the patient clinically closely. Continue t o wean oxygen as tolerated. (4) HTN (hypertension): Plan: Nitro added to regimen today. (5) Pulmonary hypertension: (6) Pericardial effusion: Plan: small loculated pleural effusion, may suggest increased chronicity/stability. No tamponade physiology on echo. (7) Tachycardia: Plan: Small amount of beta seven started by cardiology, titrating this today. (8) Gram-positive bacteremia: Plan: New gram-positive bacteremia, initiation with vancomycin pending further sensitivities and speciation. TTE this admission did not reveal any evidence of vegetation. Repeat blood cultures at this time. Source is uncertain but she does have an open skin wound related to her shingles rash on her buttock. Contamination also considered. Will consult ID for thoughts/recommendations. (9) Herpes zoster: Plan: Patient reportedly had shingles rash during last admission, however this is not documented and no treatment was noted. Although rash is present for greater than 72 hours will give her Valtrex for 7 days. Rash notably still slightly open and itchy to patient. Continue contact precautions (10) DMII (diabetes mellitus, type 2): Plan: Continue basal bolus insulin. Blood sugar elevated related to high dose dexamethasone. Increased both long and short acting insulin, however, consulted glycemic pharmacist for help with control overnight. (11) DVT prophylaxis: Plan: Lovenox Full code Disposition-continue PCU Theresa Parisi DO [facility] Hospitalist (12) Obesity: Plan: Loculated pericardial effusion seen on echocardiogram today. Cardiology consulted. Pericardial effusion is of nonhemodynamic significance, however, cautious institution of low dose Toprol-XL started by cardiology. Effusion is loculated. Notably patient is significantly physically deconditioned with her prolonged illness, contributing to her tachycardia and symptoms of dyspnea with minimal exertion. Continue efforts to mobilize her out of bed as tolerated. (13) Physical deconditioning: Admission and Anticipated Discharge Date Admission Date: March 30, 2021 Subjective 65-year-old female recently admitted for Covid pneumonia discharged home on elevated amounts of supplemental oxygen and became progressively worse requiring readmission. Now requiring high flow oxygenation (wall, not vapotherm). She is also on high doses of steroids per pulmonology recommendations. trying to stay positive overall Group RN touched base with her today and she was very appreciative of this She is proning and doing well on this Denies chest pain. Continued expected SOB and elevated HR with exertion Cardiology to increase her BB and starting some nitro paste. I gave some Lasix this am. Pulm HTN on her echo Review of Systems Review of Systems: At least ten systems were reviewed and negative except as indicated in HPI above. Physical Exam Physical Exam: CONSTITUTIONAL: obese, vitals as above, generally ill- appearing, NAD EYES: normal conjunctivae, no scleral icterus ENT: external ear and nose normal, MMM RESPIRATORY: rhonchi heard throughout all lung skinner, no rales or wheezes, normal respiratory effort CARDIOVASCULAR: tachy rate and rhythm, S1 and 2 heard without murmurs, gallops or rubs, no JVD, no peripheral edema GASTROINTESTINAL: soft, nontender, ND, no guarding MUSCULOSKELETAL: generalized weakness, requires assistance sitting up in bed. Head is normocephalic and atraumatic SKIN: warm and dry, +rash on her left buttock that is golf-ball sized posteriorly. Grouped vesicles on erythematous base. NEUROLOGIC: CN 2-12 grossly intact, normal cognition, normal speech PSYCHIATRIC: alert cooperative and oriented to person, place and time. Results & Data Results & Data ([facility]) Vital Signs (Past 12 Hours) Vital Signs Temp Pulse Pulse Resp BP Pulse Ox 04/02/21 17:45 102 H 155/102 H 04/02/21 16:23 102 H 04/02/21 15:40 36.5 C 107 H 25 H 173/92 H 89 L 04/02/21 10:49 36.6 C 108 H 20 166/106 H 90 04/02/21 08:07 93 H 22 91 04/02/21 08:06 93 H 30 H 91 04/02/21 08:00 76 04/02/21 07:03 36.4 C L 81 24 141/88 H 91 Laboratory Results Short CBC 04/02/21 Range/Units 06:16 WBC 9.33 (4.8-10.8) K/uL Hgb 11.5 L (12.0-16.0) g/dL Hct 35.4 L (37-47) % Plt Count 558 H (130-400) K/uL BMP 04/02/21 06:16 Sodium 137 Potassium 4.4 Chloride 106 Carbon Dioxide 29 BUN 10 Creatinine 0.55 L Glucose 222 H Calcium 8.5 Diagnostic Findings Chest X-Ray 04/02/21 07:00 XR chest 1V portable HISTORY: 65 years-old Female pneumomediastinum follow-up study in a patient with reported pneumomediastinum COMPARISON: Chest radiograph and CTA chest 03/30/2021 TECHNIQUE: Portable AP view of the chest FINDINGS: Right IJ central venous catheter is unchanged. Cardiomegaly. Extensive bilateral mixed interstitial and alveolar opacities redemonstrated are again most pronounced in the mid and lower lung zone prominent distribution. Findings have not significantly changed from comparison. No acute fracture. Questioned trace pneumomediastinum. IMPRESSION: 1. Cardiomegaly with unchanged extensive bilateral pulmonary opacities compatible with viral pneumonia. 2. Probable trace pneumomediastinum is again noted. No pneumothorax. ACT 112: Negative or not required by law. The above report was generated using voice recognition software. It may contain grammatical, syntax or spelling errors. Electronically signed by: Jessee Llamas M.D. 04/02/2021 7:55 AM Medications Administered Current Inpatient Medications Acetaminophen (Acetaminophen 325 Mg Tab) 650 mg PO Q4H PRN PRN Reason: Pain or Fever Stop: 04/29/21 19:09 Benzonatate (Benzonatate 100 Mg Capsule) 100 mg PO TID [facility] Stop: 04/29/21 20:59 Last Admin: 04/02/21 13:35 Dose: 100 mg Documented by: Dextrose (Dextrose 50% 50 Ml Syringe) 25 - 50 ml IV UD PRN; Protocol PRN Reason: Hypoglycemia Protocol Stop: 04/29/21 19:09 Enoxaparin Sodium (Enoxaparin Inj 40 Mg/0.4 Ml Syr) 40 mg SQ Q24H NELL Stop: 04/29/21 19:59 Last Admin: 04/01/21 21:05 Dose: 40 mg Documented by: Fluticasone Propionate (Fluticasone Propionate Na Spr 16 Gm Btl) 2 sprays ALE DAILY NELL Stop: 05/02/21 16:29 Glucagon (Glucagon For Inj 1 Mg Vial) 1 mg SQ UD PRN; Protocol PRN Reason: Hypoglycemia Protocol Stop: 04/29/21 19:09 Glucose (Glucose 10 Tabs/Tube) 4 - 8 tabs PO UD PRN; Protocol PRN Reason: Hypoglycemia Protocol Stop: 04/29/21 19:09 Glucose (Glucose 40% Gel 15 Gm Tube) 15 - 30 gm PO UD PRN; Protocol PRN Reason: Hypoglycemia Protocol Stop: 04/29/21 19:09 Guaifenesin/Codeine Phosphate (Guaifenesin/Codeine 200mg/20mg 10ml Udc) 10 ml PO Q6H PRN PRN Reason: Cough Stop: 05/01/21 15:45 Last Admin: 04/02/21 10:10 Dose: 10 ml Documented by: Dexamethasone 20 mg/ Dextrose 30 mls @ 0.833 mls/min IV Q24H NELL Stop: 04/05/21 12:59 Last Infusion: 04/02/21 13:50 Dose: Infused Documented by: Vancomycin HCl 1,250 mg/ (Sodium Chloride) 275 mls @ 200 mls/hr IV Q12H NELL Stop: 04/16/21 01:59 Last Infusion: 04/02/21 14:59 Dose: Infused Documented by: Insulin Aspart (Insulin Aspart 100 Units/Ml 3 Ml Pen) 0 units SC ACHS NELL Stop: 04/29/21 19:59 Last Admin: 04/02/21 17:35 Dose: 14 units Documented by: Insulin Glargine (Insulin Glargine Solostar 100 Units/Ml 3 Ml Pen) 23 units SC BID NELL Stop: 05/02/21 09:59 Last Admin: 04/02/21 10:05 Dose: 23 units Documented by: Levalbuterol HCl (Levalbuterol Tartrate 15 Gm Hfa.Aer.Ad) 2 puffs INH Q4R PRN PRN Reason: Shortness Of Breath Or Wheezing Stop: 04/30/21 12:49 Last Admin: 04/02/21 08:05 Dose: 2 puffs Documented by: Levalbuterol HCl (Levalbuterol Hcl 1.25 Mg/3 Ml Neb) 1.25 mg NEB Q4H PRN PRN Reason: Shortness Of Breath Or Wheezing Stop: 05/01/21 20:06 Last Admin: 04/01/21 21:54 Dose: 1.25 mg Documented by: Melatonin (Melatonin 3 Mg Tab) 3 mg PO HS PRN PRN Reason: insomnia Stop: 04/29/21 19:09 Metoprolol Succinate (Metoprolol Succ 25mg Ext Rel Tab) 12.5 mg PO BID NELL Stop: 05/02/21 20:59 Miscellaneous (Carbohydrates For Hypoglycemia ) 15 - 30 gm PO UD PRN PRN Reason: Hypoglycemia Protocol Stop: 04/29/21 19:09 Miscellaneous Information (Vancomycin Consult Active) 1 ea N/A UD PRN PRN Reason: Consult Stop: 05/01/21 15:37 Nitroglycerin (Nitroglycerin 2% Ointment 30gm Tube) 0.5 inch EXT Q6H NELL Stop: 05/02/21 14:59 Last Admin: 04/02/21 15:45 Dose: 0.5 inch Documented by: Valacyclovir HCl (Valacyclovir Hcl 500 Mg Tablet) 1,000 mg PO TID NELL Stop: 04/08/21 20:59 Last Admin: 04/02/21 13:35 Dose: 1,000 mg Documented by:
[2021-04-02] MEDS: ENOXAPARIN INJ 40 MG/0.4 ML SYR SQ SCH (20:22)
[2021-04-02] MEDS: FLUTICASONE PROPIONATE NA SPR 16 GM BTL NAE SCH (20:25)
[2021-04-03] MEDS: INSULIN ASPART 100 UNITS/ML 3 ML PEN SC SCH ×6 (00:09→20:37)
[2021-04-03] MEDS ORDERED: VANCOMYCIN TROUGH ONE (01:30)
[2021-04-03 01:51] LABS: Hematocrit (blood only) 36.6 % (37-47); Hemoglobin 11.9 g/dL (12.0-16.0); Mean Corpuscular Hgb Conc 32.5 g/dL (32-36); Mean Corpuscular Volume 92.2 fL (80-100); Mean Platelet Volume 9.9 fL (7.4-10.4); Platelet Count 716 K/uL (130-400); RDW Standard Deviation 47.9 fL (36.4-46.3); Red Blood Count 3.97 M/uL (4.2-5.4); White Blood Count 17.12 K/uL (4.8-10.8)
[2021-04-03 02:28] LABS: Calcium 8.8 mg/dl (8.5-10.1); Creatinine Clr Calc Pharmacy 92.8 ml/min; Est GFR (African American) 107.4 ml/min; Est GFR (Non-African American) 92.7 ml/min; Magnesium 2.4 mg/dl (1.8-2.4); Potassium 4.4 mmol/L (3.5-5.1)
[2021-04-03] MEDS: VANCOMYCIN HCL 1,250 MG in SODIUM CHLORIDE 0.9% 250 ML IV SCH ×2 (03:20→13:08)
[2021-04-03] MEDS: NITROGLYCERIN 2% OINTMENT 30GM TUBE EXT SCH ×4 (03:21→20:50)
[2021-04-03] MEDS: INSULIN GLARGINE SOLOSTAR 100 UNITS/ML 3 ML PEN SC SCH ×2 (08:47→20:36)
--- NOTE | 2021-04-03 09:17 | Pulmonology Progress Note ---
Date of Service April 03, 2021 Assessment & Plan (1) Acute on chronic respiratory failure with hypoxia: (2) History of COVID-19: (3) Pneumomediastinum: (4) Pericardial effusion: Plan: Impression: 65-year-old female with Covid pneumonia and hypoxemia. Her CT scan does demonstrate fibrotic changes although it is difficult to ascertain whether or not there has been significant progression. She does have new pneumomediastinum, likely secondary to Silver effect. Recommendations: 1. Continue dexamethasone 20 mg a day for 5 days followed by 10 mg a day for 5 days and follow the patient clinically closely. There is not much that can be done to decrease fibrotic changes at this point time. She will require outpatient follow-up with CT scan and pulmonary function test at some point 2. Pneumomediastinum: Suspect this is due to the Silver effect. X-ray showed no progression of the pneumomediastinum and no evidence of a pneumothorax. Continue to follow clinically 3. Continue to wean oxygen as tolerated. Defend oxygen saturation of 88%. Continue out of bed to chair as tolerated. Anticipate slow clinical improvement over time. Admission and Anticipated Discharge Date Admission Date: March 30, 2021 Subjective Patient seen and examined. EMR reviewed. The patient states that she is feeling as good as she has in weeks. She states that she started to feel much better last evening. Her oxygen requirement remains high but stable. Her chest discomfort is resolved. She is not having any fevers chills or night sweats. She was able to sit up in the chair yesterday. Review of Systems Review of Systems: Complete review of systems completed and negative except as noted in the HPI Physical Exam Constitutional: well developed and well nourished; no acute distress Respiratory: normal respiratory effort; no respiratory distress Auscultation: + diminished lung sounds Cardiovascular: Rate/Rhythm: regular rhythm Gastrointestinal (Abdomen): normal bowel sounds, soft, nontender, no hepatosplenomegaly Musculoskeletal: no cyanosis or clubbing, extremities motor strength 5/5 Skin: no rashes, warm and dry Results & Data Results & Data ([facility]) Vital Signs (Past 12 Hours) Vital Signs Temp Pulse Pulse Resp BP Pulse Ox 04/03/21 08:12 36.4 C L 87 25 H 145/80 H 90 04/03/21 03:19 36.6 C 87 20 148/88 H 91 04/02/21 23:56 37.0 C 83 23 134/95 94 04/02/21 23:04 36.7 C 97 H 24 116/88 90 04/02/21 23:00 83 Laboratory Results 04/03/21 01:36 04/03/21 01:36 Diagnostic Findings Chest x-ray from yesterday was stable PG Care Time/CCT Total # of Minutes Spent Total Time Spent with Patient: Total time spent is greater than 50% in co ordination of care (as documented) at patient's floor/unit and/or counseling patient: Coding Level of Care Code 59196 Subseq Hosp Care Lvl 2 Diagnoses Acute on chronic respiratory failure with hypoxia J96.21 History of COVID-19 Z86.16 Pneumomediastinum J98.2 Pericardial effusion I31.3
--- NOTE | 2021-04-03 09:32 | XRay Report ---
XR chest 1V portable HISTORY: 65 years-old Female pneumomediastinum follow-up study in a patient with pneumomediastinum COMPARISON: Chest radiograph 04/02/2021, CTA chest 2020 TECHNIQUE: Portable AP view of the chest FINDINGS: Right IJ central venous catheter is unchanged. Cardiomegaly. Extensive bilateral mixed interstitial a nd alveolar opacities are generally stable. No pneumothorax or large pleural effusion. Previously karin cribed pneumomediastinum is not definitively seen. No acute fracture. Partially imaged spinal stimula tor leads. IMPRESSION: 1. Cardiomegaly with unchanged extensive bilateral pulmonary opacities compatible with pneumonia. 2. No pneumothorax. The previously described pneumomediastinum is not identified. ACT 112: Negative or not required by law. The above report was generated using voice recognition software. It may contain grammatical, syntax o r spelling errors. Electronically signed by: Jessee Llamas M.D. 04/03/2021 9:31 AM
[2021-04-03] MEDS: valACYclovir HCL 500 MG TABLET PO SCH ×3 (09:58→21:24)
[2021-04-03] MEDS: BENZONATATE 100 MG CAPSULE PO SCH ×2 (09:58→13:02)
[2021-04-03] MEDS: FLUTICASONE PROPIONATE NA SPR 16 GM BTL NAE SCH (09:59)
[2021-04-03] MEDS: METOPROLOL SUCC 25MG EXT REL TAB PO SCH ×3 (10:59→20:45)
--- NOTE | 2021-04-03 11:23 | Cardiology Progress Note ---
Date of Service April 03, 2021 Assessment & Plan (1) Tachycardia: (2) Acute respiratory failure with hypoxia: (3) Gram-positive bacteremia: (4) Pericardial effusion: (5) Pneumomediastinum: Plan: Complex female with issues as outlined progressive pulmonary infiltrates with possible superimposed bacteremia. Chest CT with pneumomediastinum and small pericardial effusion. Patient continues to complain of dyspnea with minimal exertion. Heart rates and blood pressure remain elevated echocardiogram with hyperdynamic LV function and significant pulmonary hypertension Plan: Patient being treated for underlying pulmonary issues. Heart rate and blood pressure improved this morning. Symptomatically improved. Will increase metoprolol succinate slightly to 12.5 mg 3 times per day continue topical nitrates for hypertension and preload reduction Exam does not suggest significant volume overload but fluid balance issue remain at least neutral to slightly negative Admission and Anticipated Discharge Date Admission Date: March 30, 2021 Subjective Patient was seen and examined, chart, medications, telemetry reviewed. Overall feels improved heart rate and blood pressure better controlled. No dizziness or lightheadedness. Still with significant oxygen demand but less threatening symptoms with activity. Heart rate in the 80s overnight No productive cough. No chest pain. Review of Systems Review of Systems: All systems reviewed & are unremarkable except as noted in Subjective Physical Exam Constitutional: no acute distress Eyes: PERRL, conjunctivae normal, anicteric sclerae ENMT: external ear and nose normal, oropharynx normal Neck: trachea midline, no thyromegaly Respiratory: Auscultation: + diminished lung sounds and + crackles Cardiovascular: RRR, no murmur, no edema Chest (Breasts): normal inspection/palpation of breasts Gastrointestinal (Abdomen): normal bowel sounds, soft, nontender, no hepa tosplenomegaly Neurologic: PERRL, EOMI, accommodation nl, no face palsy, no dysarthria Psychiatric: A+Ox3, euthymic affect Results & Data ([facility]) Vital Signs (Past 12 Hours) Vital Signs Temp Pulse Resp BP Pulse Ox 04/03/21 11:07 36.6 C 95 H 25 H 152/92 H 90 04/03/21 08:12 36.4 C L 87 25 H 145/80 H 90 04/03/21 03:19 36.6 C 87 20 148/88 H 91 04/02/21 23:56 37.0 C 83 23 134/95 94 Laboratory Results Laboratory Results - last 24 hr 04/02/21 04/02/21 04/02/21 13:25 13:26 16:55 WBC RBC Hgb Hct MCV MCH MCHC RDW Std Deviation RDW Coeff of Ralf Plt Count MPV Sodium Potassium Chloride Carbon Dioxide Anion Gap BUN Creatinine Est Cr Clr Drug Dosing Est GFR ( Amer) Est GFR (Non-Af Amer) BUN/Creatinine Ratio Glucose POC Glucose 306 H* 307 H* 207 H Calcium Magnesium Vancomycin Trough 04/02/21 04/02/21 04/02/21 20:35 20:36 23:59 WBC RBC Hgb Hct MCV MCH MCHC RDW Std Deviation RDW Coeff of Ralf Plt Count MPV Sodium Potassium Chloride Carbon Dioxide Anion Gap BUN Creatinine Est Cr Clr Drug Dosing Est GFR ( Amer) Est GFR (Non-Af Amer) BUN/Creatinine Ratio Glucose POC Glucose 308 H* 295 H 96 Calcium Magnesium Vancomycin Trough 04/03/21 04/03/21 04/03/21 01:36 01:36 01:36 WBC 17.12 H RBC 3.97 L Hgb 11.9 L Hct 36.6 L MCV 92.2 MCH 30.0 MCHC 32.5 RDW Std Deviation 47.9 H RDW Coeff of Ralf 14.0 Plt Count 716 H MPV 9.9 Sodium 139 Potassium 4.4 Chloride 108 H Carbon Dioxide 31 Anion Gap 0 L BUN 16 D Creatinine 0.66 Est Cr Clr Drug Dosing 92.8 Est GFR ( Amer) 107.4 Est GFR (Non-Af Amer) 92.7 BUN/Creatinine Ratio 25.0 H Glucose 136 H POC Glucose Calcium 8.8 Magnesium 2.4 Vancomycin Trough 12.6 04/03/21 04/03/21 04:16 08:14 WBC RBC Hgb Hct MCV MCH MCHC RDW Std Deviation RDW Coeff of Ralf Plt Count MPV Sodium Potassium Chloride Carbon Dioxide Anion Gap BUN Creatinine Est Cr Clr Drug Dosing Est GFR ( Amer) Est GFR (Non-Af Amer) BUN/Creatinine Ratio Glucose POC Glucose 109 H 153 H Calcium Magnesium Vancomycin Trough Medications Administered Current Medications Acetaminophen (Acetaminophen 325 Mg Tab) 650 mg PO Q4H PRN PRN Reason: Pain or Fever Stop: 04/29/21 19:09 Benzonatate (Benzonatate 100 Mg Capsule) 100 mg PO TID NELL Stop: 04/29/21 20:59 Last Admin: 04/03/21 09:58 Dose: 100 mg Documented by: Dextrose (Dextrose 50% 50 Ml Syringe) 25 - 50 ml IV UD PRN; Protocol PRN Reason: Hypoglycemia Protocol Stop: 04/29/21 19:09 Enoxaparin Sodium (Enoxaparin Inj 40 Mg/0.4 Ml Syr) 40 mg SQ Q24H NELL Stop: 04/29/21 19:59 Last Admin: 04/02/21 20:22 Dose: 40 mg Documented by: Fluticasone Propionate (Fluticasone Propionate Na Spr 16 Gm Btl) 2 sprays ALE DAILY NELL Stop: 05/02/21 16:29 Last Admin: 04/03/21 09:59 Dose: 2 sprays Documented by: Glucagon (Glucagon For Inj 1 Mg Vial) 1 mg SQ UD PRN; Protocol PRN Reason: Hypoglycemia Protocol Stop: 04/29/21 19:09 Glucose (Glucose 10 Tabs/Tube) 4 - 8 tabs PO UD PRN; Protocol PRN Reason: Hypoglycemia Protocol Stop: 04/29/21 19:09 Glucose (Glucose 40% Gel 15 Gm Tube) 15 - 30 gm PO UD PRN; Protocol PRN Reason: Hypoglycemia Protocol Stop: 04/29/21 19:09 Guaifenesin/Codeine Phosphate (Guaifenesin/Codeine 200mg/20mg 10ml Udc) 10 ml PO Q6H PRN PRN Reason: Cough Stop: 05/01/21 15:45 Last Admin: 04/02/21 10:10 Dose: 10 ml Documented by: Dexamethasone 20 mg/ Dextrose 30 mls @ 0.833 mls/min IV Q24H NELL Stop: 04/05/21 12:59 Last Infusion: 04/02/21 13:50 Dose: Infused Documented by: Vancomycin HCl 1,250 mg/ (Sodium Chloride) 275 mls @ 200 mls/hr IV Q12H [facility] Stop: 04/16/21 01:59 Last Infusion: 04/03/21 05:38 Dose: Infused Documented by: Insulin Aspart (Insulin Aspart 100 Units/Ml 3 Ml Pen) 0 units SC ACHS NELL Stop: 04/29/21 19:59 Last Admin: 04/03/21 08:46 Dose: 22 units Documented by: Insulin Aspart (Insulin Aspart 100 Units/Ml 3 Ml Pen) 0 units SC 0000,0400 [facility] Stop: 05/03/21 00:00 Last Admin: 04/03/21 04:24 Dose: Not Given Documented by: Insulin Glargine (Insulin Glargine Solostar 100 Units/Ml 3 Ml Pen) 23 units SC BID [facility] Stop: 05/02/21 09:59 Last Admin: 04/03/21 08:47 Dose: 23 units Documented by: Insulin Human NPH (Insulin Human Nph) 18 units SC TODAY@1300 [facility] Stop: 05/03/21 12:59 Levalbuterol HCl (Levalbuterol Tartrate 15 Gm Hfa.Aer.Ad) 2 puffs INH Q4R PRN PRN Reason: Shortness Of Breath Or Wheezing Stop: 04/30/21 12:49 Last Admin: 04/02/21 08:05 Dose: 2 puffs Documented by: Levalbuterol HCl (Levalbuterol Hcl 1.25 Mg/3 Ml Neb) 1.25 mg NEB Q4H PRN PRN Reason: Shortness Of Breath Or Wheezing Stop: 05/01/21 20:06 Last Admin: 04/01/21 21:54 Dose: 1.25 mg Documented by: Melatonin (Melatonin 3 Mg Tab) 3 mg PO HS PRN PRN Reason: insomnia Stop: 04/29/21 19:09 Metoprolol Succinate (Metoprolol Succ 25mg Ext Rel Tab) 12.5 mg PO BID [facility] Stop: 05/02/21 20:59 Last Admin: 04/03/21 10:59 Dose: 12.5 mg Documented by: Miscellaneous (Carbohydrates For Hypoglycemia ) 15 - 30 gm PO UD PRN PRN Reason: Hypoglycemia Protocol Stop: 04/29/21 19:09 Miscellaneous Information (Vancomycin Consult Active) 1 ea N/A UD PRN PRN Reason: Consult Stop: 05/01/21 15:37 Miscellaneous Information (Pharmacy Glycemic Mgmt Consult) 1 ea N/A UD PRN PRN Reason: Consult Stop: 05/02/21 18:31 Nitroglycerin (Nitroglycerin 2% Ointment 30gm Tube) 0.5 inch EXT Q6H [facility] Stop: 05/02/21 14:59 Last Admin: 04/03/21 10:01 Dose: 0.5 inch Documented by: Valacyclovir HCl (Valacyclovir Hcl 500 Mg Tablet) 1,000 mg PO TID NELL Stop: 04/08/21 20:59 Last Admin: 04/03/21 09:58 Dose: 1,000 mg Documented by:
[2021-04-03] MEDS ORDERED: INSULIN HUMAN NPH SC SCH (13:00)
[2021-04-03] MEDS: dexAMETHasone 20 MG in DEXTROSE 5% 25 ML IV SCH (13:09)
--- NOTE | 2021-04-03 13:27 | Pharmacy Report ---
Pharmacy Glycemic Short Note 2 - Date of Service April 03, 2021 - Glycemic Short BSG Results (Last 24 hours): 04/02/21 04/02/21 04/02/21 13:25 13:26 16:55 Glucose POC Glucose 306 H* 307 H* 207 H 04/02/21 04/02/21 04/02/21 20:35 20:36 23:59 Glucose POC Glucose 308 H* 295 H 96 04/03/21 04/03/21 04/03/21 01:36 04:16 08:14 Glucose 136 H POC Glucose 109 H 153 H 04/03/21 11:42 Glucose POC Glucose 163 H OUTPATIENT ANTIDIABETIC REGIMEN: * novolin 70/30 30qAM and 15 PM * A1c 12.4% 03/05/21 ASSESSMENT: * Patient currently on high dose steroids, dexamethasone 20 mg IV (day 4/5), and will taper down to 10 mg on 04/05 * BSGs elevated likely d/t steroid, patient received 118 units of insulin yesterday, 46 of which were basal * Novolog parameters and lantus increased yesterday, BSGs have trended down with these changes, will continue same for now * Consider adding NPH with dexamethasone if BSGs continue to be elevated, held off for today as patient trended down overnight and BSGs have been acceptable so far today (all <180 mg/dL) PLAN FOR INPATIENT GLYCEMIC CONTROL: * Hold outpatient oral diabetes medications * Basal insulin * Lantus 23 units SQ BID * Bolus insulin * NovoLog per scale ACHS or Q6hrs while NPO * Goal Range: Low 110 mg/dL - High 140 mg/dL * Correction Factor: 10 mg/dL/unit * Nutritional / Prandial insulin per carb ratio of 1 unit per 3 grams CHO consumed
--- NOTE | 2021-04-03 13:33 | Pharmacy Report ---
Pharmacy Vanc AUC Short Note - Date of Service April 03, 2021 - Assessment & Plan Assessment 65 year old F receiving vancomycin for treatment of coag negative staph bacteremia. Day # 2 of antimicrobial therapy. Plan Vancomycin * AUC/ALEXIS is the preferred PK/PD target for vancomycin * AUC guided dosing is effective and associated with decreased risk of nephrotoxicity compared to traditional trough targets * Trough level of 12.6 mcg/mL is predicted to achieve target AUC/ALEXIS of 400-600 mg/L.hr and may be associated with a 11 % risk of nephrotoxicity * Continue dose of 1250 mg q12H * Trough ordered for 04/04 @ 1330 Pharmacy will continue to follow and will adjust dose/frequency as necessary. Thank you.
[2021-04-03] MEDS ORDERED: BENZONATATE 100 MG CAPSULE PO PRN (16:48)
--- NOTE | 2021-04-03 16:49 | Hospitalist Progress Note ---
Date of Service April 03, 2021 Assessment & Plan (1) Acute on chronic respiratory failure with hypoxia: Plan: 2/2 covid pneumonia (2) Pneumomediastinum: Plan: appears to be resolved on CXR this am. (3) Post-COVID syndrome: Plan: Completed courses of dexamethasone and remdesivir on recent admission prior to discharge. Returned with worsening shortness of breath progressed to hypoxic respiratory failure. Per pulmonology she has a CT scan demonstrating fibrotic changes although it is difficult to ascertain whether or not there has been significant progression. Currently on high dose steroid taper per pulm recommendations we will continue dexamethasone 20 mg a day for 5 days followed by 10 mg a day for 5 days and follow the patient clinically closely. Required progression to hi flow for oxgyen support after recent desaturation event. Has some anxiety likely worsened by the steroids. Xanax low dose PRN-avoid combi ingrid with Robitussin AC. Cont to prone. (4) HTN (hypertension): Plan: Improved with nitro paste, continue q6h. (5) Pulmonary hypertension: (6) Pericardial effusion: Plan: small loculated pleural effusion, may suggest increased chronicity/stability. No tamponade physiology on echo. (7) Tachycardia: Plan: Small amount of beta seven started by cardiology, current tachycardia influenced by her state of anxiety. (8) Gram-positive bacteremia: Plan: New bacteremia, initiation with vancomycin pending further sensitivities and speciation. [employer], not lugdenensis. TTE this admission did not reveal any evidence of vegetation. Repeat blood cultures at this time. Source is uncertain but she does have an open skin wound related to her shingles rash on her buttock. Contamination also considered. Will consult ID for thoughts/recommendations. (9) Herpes zoster: Plan: On left glute. Cont valtrex for 7 day course (10) DMII (diabetes mellitus, type 2): Plan: Continue basal bolus insulin. Blood sugar elevated related to high dose dexamethasone. Improved glycemic control with help of glycemic pharmacist. (11) Obesity: (12) Physical deconditioning: Plan: PT/OT when appropriate from an oxygen standpoint. (13) DVT prophylaxis: Plan: Lovenox Full code Disposition-continue PCU Theresa Parisi DO [facility] Hospitalist Admission and Anticipated Discharge Date Admission Date: March 30, 2021 Subjective 65-year-old female recently admitted for Covid pneumonia discharged home on elevated amounts of supplemental oxygen and became progressively worse requiring readmission. Now requiring high flow oxygenation (wall, not vapotherm). She is also on high doses of steroids per pulmonology recommendations. very anxious right now, almost panicking recent desaturation event with difficult recovery transitioning her to hi flow, respiratory is at bedside. gave her results of her CXR this morning per her request denies pain compliant with proning per nurse. Review of Systems Review of Systems: At least ten systems were reviewed and negative except as indicated in HPI above. Physical Exam Physical Exam: CONSTITUTIONAL: obese, vitals as above, generally ill- appearing, NAD, anxious EYES: normal conjunctivae, no scleral icterus ENT: external ear and nose normal, MMM RESPIRATORY: crackles at bases bilaterally, no rales or wheezes, normal respiratory effort, poor airflow in upper air skinner. CARDIOVASCULAR: tachy rate and rhythm, S1 and 2 heard without murmurs, gallops or rubs, no JVD, no peripheral edema GASTROINTESTINAL: soft, nontender, ND, no guarding MUSCULOSKELETAL: generalized weakness, no gross focal deficits. Head is normocephalic and atraumatic SKIN: warm and dry, +rash on her left buttock NEUROLOGIC: CN 2-12 grossly intact, normal cognition, normal speech PSYCHIATRIC: alert cooperative and oriented, anxious Results & Data Results & Data ([facility]) Vital Signs (Past 12 Hours) Vital Signs Temp Pulse Pulse Resp BP BP Pulse Ox 04/03/21 16:05 101 H 29 H 143/89 H 88 L 04/03/21 15:21 36.4 C L 105 H 20 174/106 H 89 L 04/03/21 11:07 36.6 C 95 H 25 H 152/92 H 90 04/03/21 08:12 36.4 C L 87 25 H 145/80 H 90 04/03/21 08:00 80 Laboratory Results Short CBC 04/03/21 Range/Units 01:36 WBC 17.12 H (4.8-10.8) K/uL Hgb 11.9 L (12.0-16.0) g/dL Hct 36.6 L (37-47) % Plt Count 716 H (130-400) K/uL BMP 04/03/21 01:36 Sodium 139 Potassium 4.4 Chloride 108 H Carbon Dioxide 31 BUN 16 D Creatinine 0.66 Glucose 136 H Calcium 8.8 Diagnostic Findings Chest X-Ray 04/03/21 07:00 XR chest 1V portable HISTORY: 65 years-old Female pneumomediastinum follow-up study in a patient with pneumomediastinum COMPARISON: Chest radiograph 04/02/2021, CTA chest 11 2020 TECHNIQUE: Portable AP view of the chest FINDINGS: Right IJ central venous catheter is unchanged. Cardiomegaly. Extensive bilateral mixed interstitial and alveolar opacities are generally stable. No pneumothorax or large pleural effusion. Previously described pneumomediastinum is not definitively seen. No acute fracture. Partially imaged spinal stimulator leads. IMPRESSION: 1. Cardiomegaly with unchanged extensive bilateral pulmonary opacities compatible with pneumonia. 2. No pneumothorax. The previously described pneumomediastinum is not identified. ACT 112: Negative or not required by law. The above report was generated using voice recognition software. It may contain grammatical, syntax or spelling errors. Electronically signed by: Jessee Llamas M.D. 04/03/2021 9:31 AM Medications Administered Current Inpatient Medications Acetaminophen (Acetaminophen 325 Mg Tab) 650 mg PO Q4H PRN PRN Reason: Pain or Fever Stop: 04/29/21 19:09 Alprazolam (Alprazolam 0.25 Mg Tablet) 0.25 mg PO Q8H PRN PRN Reason: severe anxiety Stop: 05/03/21 16:33 Benzonatate (Benzonatate 100 Mg Capsule) 100 mg PO TID NELL Stop: 04/29/21 20:59 Last Admin: 04/03/21 13:02 Dose: 100 mg Documented by: Dextrose (Dextrose 50% 50 Ml Syringe) 25 - 50 ml IV UD PRN; Protocol PRN Reason: Hypoglycemia Protocol Stop: 04/29/21 19:09 Enoxaparin Sodium (Enoxaparin Inj 40 Mg/0.4 Ml Syr) 40 mg SQ Q24H NELL Stop: 04/29/21 19:59 Last Admin: 04/02/21 20:22 Dose: 40 mg Documented by: Fluticasone Propionate (Fluticasone Propionate Na Spr 16 Gm Btl) 2 sprays ALE DAILY NELL Stop: 05/02/21 16:29 Last Admin: 04/03/21 09:59 Dose: 2 sprays Documented by: Glucagon (Glucagon For Inj 1 Mg Vial) 1 mg SQ UD PRN; Protocol PRN Reason: Hypoglycemia Protocol Stop: 04/29/21 19:09 Glucose (Glucose 10 Tabs/Tube) 4 - 8 tabs PO UD PRN; Protocol PRN Reason: Hypoglycemia Protocol Stop: 04/29/21 19:09 Glucose (Glucose 40% Gel 15 Gm Tube) 15 - 30 gm PO UD PRN; Protocol PRN Reason: Hypoglycemia Protocol Stop: 04/29/21 19:09 Guaifenesin/Codeine Phosphate (Guaifenesin/Codeine 200mg/20mg 10ml Udc) 10 ml PO Q6H PRN PRN Reason: Cough Stop: 05/01/21 15:45 Last Admin: 04/02/21 10:10 Dose: 10 ml Documented by: Dexamethasone 20 mg/ Dextrose 30 mls @ 0.833 mls/min IV Q24H [facility] Stop: 04/05/21 12:59 Last Infusion: 04/03/21 13:58 Dose: Infused Documented by: Vancomycin HCl 1,250 mg/ (Sodium Chloride) 275 mls @ 200 mls/hr IV Q12H [facility] Stop: 04/16/21 01:59 Last Infusion: 04/03/21 16:28 Dose: Infused Documented by: Dexamethasone 10 mg/ Syringe 2.5 mls @ 1 mls/min IV DAILY@1300 [facility] Stop: 04/09/21 13:03 Insulin Aspart (Insulin Aspart 100 Units/Ml 3 Ml Pen) 0 units SC ACHS [facility] Stop: 04/29/21 19:59 Last Admin: 04/03/21 13:04 Dose: 20 units Documented by: Insulin Aspart (Insulin Aspart 100 Units/Ml 3 Ml Pen) 0 units SC 0000,0400 [facility] Stop: 05/03/21 00:00 Last Admin: 04/03/21 04:24 Dose: Not Given Documented by: Insulin Glargine (Insulin Glargine Solostar 100 Units/Ml 3 Ml Pen) 23 units SC BID [facility] Stop: 05/02/21 09:59 Last Admin: 04/03/21 08:47 Dose: 23 units Documented by: Levalbuterol HCl (Levalbuterol Tartrate 15 Gm Hfa.Aer.Ad) 2 puffs INH Q4R PRN PRN Reason: Shortness Of Breath Or Wheezing Stop: 04/30/21 12:49 Last Admin: 04/02/21 08:05 Dose: 2 puffs Documented by: Levalbuterol HCl (Levalbuterol Hcl 1.25 Mg/3 Ml Neb) 1.25 mg NEB Q4H PRN PRN Reason: Shortness Of Breath Or Wheezing Stop: 05/01/21 20:06 Last Admin: 04/01/21 21:54 Dose: 1.25 mg Documented by: Melatonin (Melatonin 3 Mg Tab) 3 mg PO HS PRN PRN Reason: insomnia Stop: 04/29/21 19:09 Metoprolol Succinate (Metoprolol Succ 25mg Ext Rel Tab) 12.5 mg PO TID NELL Stop: 05/03/21 13:59 Last Admin: 04/03/21 13:02 Dose: 12.5 mg Documented by: Miscellaneous (Carbohydrates For Hypoglycemia ) 15 - 30 gm PO UD PRN PRN Reason: Hypoglycemia Protocol Stop: 04/29/21 19:09 Miscellaneous Information (Vancomycin Consult Active) 1 ea N/A UD PRN PRN Reason: Consult Stop: 05/01/21 15:37 Miscellaneous Information (Pharmacy Glycemic Mgmt Consult) 1 ea N/A UD PRN PRN Reason: Consult Stop: 05/02/21 18:31 Nitroglycerin (Nitroglycerin 2% Ointment 30gm Tube) 0.5 inch EXT Q6H [facility] Stop: 05/02/21 14:59 Last Admin: 04/03/21 10:01 Dose: 0.5 inch Documented by: Valacyclovir HCl (Valacyclovir Hcl 500 Mg Tablet) 1,000 mg PO TID NELL Stop: 04/08/21 20:59 Last Admin: 04/03/21 13:01 Dose: 1,000 mg Documented by:
[2021-04-03] MEDS: ALPRAZolam 0.25 MG TABLET PO PRN (16:52)
[2021-04-03] MEDS: ENOXAPARIN INJ 40 MG/0.4 ML SYR SQ SCH (20:45)
[2021-04-04] MEDS: INSULIN ASPART 100 UNITS/ML 3 ML PEN SC SCH ×6 (00:06→20:49)
[2021-04-04] MEDS: VANCOMYCIN HCL 1,250 MG in SODIUM CHLORIDE 0.9% 250 ML IV SCH ×2 (02:31→16:37)
[2021-04-04] MEDS: NITROGLYCERIN 2% OINTMENT 30GM TUBE EXT SCH ×4 (02:31→20:32)
--- NOTE | 2021-04-04 07:34 | XRay Report ---
XR chest 1V portable CLINICAL HISTORY: pneumomediastinum COMPARISON STUDY: Chest CT March 30, 2021 chest radiograph April 03, 2021. FINDINGS: Right internal jugular central line is in place. There is no pneumothorax. Cardiomediastina l silhouette is stable. Extensive bilateral airspace opacities persist. Pneumomediastinum is not evid ent by radiography. IMPRESSION: 1. No smoking change in extensive bilateral airspace opacities. 2. No pneumomediastinum identified by radiography. ACT 112: Negative or not required by law. Electronically signed by: Dave Franz M.D. 04/04/2021 7:32 AM
[2021-04-04 07:48] LABS: Hematocrit (blood only) 36.6 % (37-47); Hemoglobin 11.7 g/dL (12.0-16.0); Mean Corpuscular Hemoglobin 29.3 pg (25-34); Mean Corpuscular Volume 91.7 fL (80-100); Mean Platelet Volume 9.9 fL (7.4-10.4); Platelet Count 645 K/uL (130-400); RDW Standard Deviation 46.7 fL (36.4-46.3); Red Blood Count 3.99 M/uL (4.2-5.4); White Blood Count 15.67 K/uL (4.8-10.8)
[2021-04-04 08:00] LABS: Calcium 8.6 mg/dl (8.5-10.1); Est GFR (African American) 118.5 ml/min; Est GFR (Non-African American) 102.2 ml/min
[2021-04-04] MEDS: INSULIN GLARGINE SOLOSTAR 100 UNITS/ML 3 ML PEN SC SCH ×2 (09:10→20:49)
[2021-04-04] MEDS: FLUTICASONE PROPIONATE NA SPR 16 GM BTL NAE SCH (09:11)
[2021-04-04] MEDS: valACYclovir HCL 500 MG TABLET PO SCH ×3 (09:12→20:34)
[2021-04-04] MEDS: METOPROLOL SUCC 25MG EXT REL TAB PO SCH ×3 (09:12→20:35)
--- NOTE | 2021-04-04 09:30 | Hospitalist Progress Note ---
Date of Service April 04, 2021 Assessment & Plan (1) Acute on chronic respiratory failure with hypoxia: Plan: 2/2 covid pneumonia (2) Pneumomediastinum: Plan: resolved on imaging. (3) Post-COVID syndrome: Plan: Completed courses of dexamethasone and remdesivir on recent admission prior to discharge. Returned with worsening shortness of breath progressed to hypoxic respiratory failure. Per pulmonology she has a CT scan demonstrating fibrotic changes although it is difficult to ascertain whether or not there has been significant progression. Currently on high dose steroid taper per pulm recommendations we will continue dexamethasone 20 mg a day for 5 days followed by 10 mg a day for 5 days and follow the patient clinically closely. Required progression to hi flow for oxgyen support after recent desaturation event. Now proning her to help recover. Has some anxiety likely worsened by the steroids. Xanax low dose PRN-avoid combining with Robitussin AC. Discussed with pulm regarding possible de-escalation of decadron dose. Plan to change to 6mg daily. (4) HTN (hypertension): Plan: Improved with nitro paste, continue q6h. (5) Pulmonary hypertension: (6) Pericardial effusion: Plan: small loculated pleural effusion, may suggest increased chronicity/stability. No tamponade physiology on echo. (7) Tachycardia: Plan: Small amount of beta seven started by cardiology, current tachycardia influenced by her state of anxiety. Mostly controlled with the changes. Cont current therapy. (8) Gram-positive bacteremia: Plan: New bacteremia, initiation with vancomycin pending further sensitivities and speciation. [employer], not lugdenensis with multi-drug resistance on sensitivity. TTE this admission did not reveal any evidence of vegetation. Repeat blood cultures are negative and she is afebrle. Source is uncertain but she did have an open skin wound related to her shingles rash on her buttock. Contamination also considered. Awaiting ID consultation for thoughts/recommendations. (9) Herpes zoster: Plan: On bilateral glutes. Cont valtrex for 7 day course (10) DMII (diabetes mellitus, type 2): Plan: Continue basal bolus insulin. Blood sugar elevated related to high dose dexamethasone. Improved glycemic control with help of glycemic pharmacist. (11) Obesity: (12) Physical deconditioning: Plan: PT/OT when appropriate from an oxygen standpoint. (13) DVT prophylaxis: Plan: Lovenox Full code Disposition-continue PCU DO Alexandru Jordan Hospitalist Admission and Anticipated Discharge Date Admission Date: March 30, 2021 Subjective 65-year-old female recently admitted for Covid pneumonia discharged home on elevated amounts of supplemental oxygen and became progressively worse requiring readmission. On high dose steroids with planned taper. She is extremely anxiuos today and reports a history of adverse side effects on steroids. Otherwise denies pain but requires frausto, which was placed at bedside. She was immediately proned after this to recover her oxygen saturation which was in the mid 80s. DEnies pain Review of Systems Review of Systems: At least ten systems were reviewed and negative except as indicated in HPI above. Physical Exam Physical Exam: CONSTITUTIONAL: obese, vitals as above, generally ill- appearing, NAD, ++anxious EYES: normal conjunctivae, no scleral icterus ENT: external ear and nose normal, MMM RESPIRATORY: crackles at bases bilaterally, no rales or wheezes, normal respiratory effort, poor airflow in upper air skinner. CARDIOVASCULAR: tachy rate and rhythm, S1 and 2 heard without murmurs, gallops or rubs, no JVD, no peripheral edema GASTROINTESTINAL: soft, nontender, ND, no guarding MUSCULOSKELETAL: generalized weakness, no gross focal deficits. Head is normocephalic and atraumatic SKIN: warm and dry, +rash on her left buttock NEUROLOGIC: CN 2-12 grossly intact, normal cognition, normal speech PSYCHIATRIC: alert cooperative and oriented, anxious Results & Data Results & Data ([facility]) Vital Signs (Past 12 Hours) Vital Signs Temp Pulse Pulse Resp BP BP Pulse Ox 04/04/21 08:08 36.5 C 74 28 H 144/90 H 144/90 H 90 04/04/21 07:54 36.5 C 73 27 H 133/93 90 04/04/21 05:35 76 24 94 04/04/21 03:09 69 24 96 04/03/21 23:46 36.5 C 74 18 137/96 95 04/03/21 22:19 74 Laboratory Results Short CBC 04/04/21 Range/Units 07:20 WBC 15.67 H (4.8-10.8) K/uL Hgb 11.7 L (12.0-16.0) g/dL Hct 36.6 L (37-47) % Plt Count 645 H (130-400) K/uL BMP 04/04/21 07:20 Sodium 141 Potassium 4.0 Chloride 108 H Carbon Dioxide 27 BUN 17 Creatinine 0.49 L Glucose 110 H Calcium 8.6 Diagnostic Findings Chest X-Ray 04/04/21 07:00 XR chest 1V portable CLINICAL HISTORY: pneumomediastinum COMPARISON STUDY: Chest CT March 30, 2021 chest radiograph April 03, 2021. FINDINGS: Right internal jugular central line is in place. There is no pneumothorax. Cardiomediastinal silhouette is stable. Extensive bilateral airspace opacities persist. Pneumomediastinum is not evident by radiography. IMPRESSION: 1. No smoking change in extensive bilateral airspace opacities. 2. No pneumomediastinum identified by radiography. ACT 112: Negative or not required by law. Electronically signed by: Dave Franz M.D. 04/04/2021 7:32 AM Medications Administered Current Inpatient Medications Acetaminophen (Acetaminophen 325 Mg Tab) 650 mg PO Q4H PRN PRN Reason: Pain or Fever Stop: 04/29/21 19:09 Alprazolam (Alprazolam 0.25 Mg Tablet) 0.25 mg PO Q8H PRN PRN Reason: severe anxiety Stop: 05/03/21 16:33 Last Admin: 04/03/21 16:52 Dose: 0.25 mg Documented by: Benzonatate (Benzonatate 100 Mg Capsule) 100 mg PO TID PRN PRN Reason: cough Stop: 04/29/21 20:59 Dextrose (Dextrose 50% 50 Ml Syringe) 25 - 50 ml IV UD PRN; Protocol PRN Reason: Hypoglycemia Protocol Stop: 04/29/21 19:09 Enoxaparin Sodium (Enoxaparin Inj 40 Mg/0.4 Ml Syr) 40 mg SQ Q24H NELL Stop: 04/29/21 19:59 Last Admin: 04/03/21 20:45 Dose: 40 mg Documented by: Fluticasone Propionate (Fluticasone Propionate Na Spr 16 Gm Btl) 2 sprays ALE DAILY NELL Stop: 05/02/21 16:29 Last Admin: 04/03/21 09:59 Dose: 2 sprays Documented by: Glucagon (Glucagon For Inj 1 Mg Vial) 1 mg SQ UD PRN; Protocol PRN Reason: Hypoglycemia Protocol Stop: 04/29/21 19:09 Glucose (Glucose 10 Tabs/Tube) 4 - 8 tabs PO UD PRN; Protocol PRN Reason: Hypoglycemia Protocol Stop: 04/29/21 19:09 Glucose (Glucose 40% Gel 15 Gm Tube) 15 - 30 gm PO UD PRN; Protocol PRN Reason: Hypoglycemia Protocol Stop: 04/29/21 19:09 Guaifenesin/Codeine Phosphate (Guaifenesin/Codeine 200mg/20mg 10ml Udc) 10 ml PO Q6H PRN PRN Reason: Cough Stop: 05/01/21 15:45 Last Admin: 04/02/21 10:10 Dose: 10 ml Documented by: Dexamethasone 20 mg/ Dextrose 30 mls @ 0.833 mls/min IV Q24H [facility] Stop: 04/05/21 12:59 Last Infusion: 04/03/21 13:58 Dose: Infused Documented by: Vancomycin HCl 1,250 mg/ (Sodium Chloride) 275 mls @ 200 mls/hr IV Q12H [facility] Stop: 04/16/21 01:59 Last Infusion: 04/04/21 03:55 Dose: Infused Documented by: Dexamethasone 10 mg/ Syringe 2.5 mls @ 1 mls/min IV DAILY@1300 [facility] Stop: 04/09/21 13:03 Insulin Aspart (Insulin Aspart 100 Units/Ml 3 Ml Pen) 0 units SC ACHS [facility] Stop: 04/29/21 19:59 Last Admin: 04/03/21 20:37 Dose: 15 units Documented by: Insulin Aspart (Insulin Aspart 100 Units/Ml 3 Ml Pen) 0 units SC 0000,0400 [facility] Stop: 05/03/21 00:00 Last Admin: 04/04/21 03:55 Dose: Not Given Documented by: Insulin Glargine (Insulin Glargine Solostar 100 Units/Ml 3 Ml Pen) 17 units SC BID [facility] Stop: 05/04/21 08:59 Levalbuterol HCl (Levalbuterol Tartrate 15 Gm Hfa.Aer.Ad) 2 puffs INH Q4R PRN PRN Reason: Shortness Of Breath Or Wheezing Stop: 04/30/21 12:49 Last Admin: 04/02/21 08:05 Dose: 2 puffs Documented by: Levalbuterol HCl (Levalbuterol Hcl 1.25 Mg/3 Ml Neb) 1.25 mg NEB Q4H PRN PRN Reason: Shortness Of Breath Or Wheezing Stop: 05/01/21 20:06 Last Admin: 04/01/21 21:54 Dose: 1.25 mg Documented by: Melatonin (Melatonin 3 Mg Tab) 3 mg PO HS PRN PRN Reason: insomnia Stop: 04/29/21 19:09 Metoprolol Succinate (Metoprolol Succ 25mg Ext Rel Tab) 12.5 mg PO TID NELL Stop: 05/03/21 13:59 Last Admin: 04/03/21 20:45 Dose: 12.5 mg Documented by: Miscellaneous (Carbohydrates For Hypoglycemia ) 15 - 30 gm PO UD PRN PRN Reason: Hypoglycemia Protocol Stop: 04/29/21 19:09 Miscellaneous Information (Vancomycin Consult Active) 1 ea N/A UD PRN PRN Reason: Consult Stop: 05/01/21 15:37 Miscellaneous Information (Pharmacy Glycemic Mgmt Consult) 1 ea N/A UD PRN PRN Reason: Consult Stop: 05/02/21 18:31 Nitroglycerin (Nitroglycerin 2% Ointment 30gm Tube) 0.5 inch EXT Q6H NELL Stop: 05/02/21 14:59 Last Admin: 04/04/21 02:31 Dose: 0.5 inch Documented by: Valacyclovir HCl (Valacyclovir Hcl 500 Mg Tablet) 1,000 mg PO TID NELL Stop: 04/08/21 20:59 Last Admin: 04/03/21 21:24 Dose: 1,000 mg Documented by:
--- NOTE | 2021-04-04 12:34 | Pulmonology Progress Note ---
Date of Service April 04, 2021 Assessment & Plan (1) Acute on chronic respiratory failure with hypoxia: (2) History of COVID-19: (3) Pneumomediastinum: (4) Pericardial effusion: Plan: Impression: 65-year-old female with Covid pneumonia and hypoxemia. Her chest x- ray is not showing any significant improvement but we have not seen any progression of her pneumomediastinum or development of any pneumothorax. Recommendations: 1. Continue dexamethasone 20 mg a day for 5 days followed by 10 mg a day for 5 days and follow the patient clinically closely. There is not much that can be done to decrease fibrotic changes at this point time. She will require outp atient follow-up with CT scan and pulmonary function test at some point 2. Pneumomediastinum: Suspect this is due to the Silver effect. Clinically and radiographically stable over the last several days. No indication for follow-up imaging currently. 3. Continue to wean oxygen as tolerated. Defend oxygen saturation of 88%. Continue out of bed to chair as tolerated. 4. Given the fibrotic peripheral nature of the patient's lung disease on CT scan, I am not sure that proning or positional therapy is going to offer her much in the way of clinical benefit at this point time. 5. We will recheck procalcitonin level as well as BNP. Her BNP had been slowly climbing. Trial of empiric diuretics will be initiated. It is difficult to ascertain whether the patient has an underlying secondary infection or atypical fluid overload contributing. I am not sure the positive blood cultures are necessarily related to her underlying lung disease. Her oxygen requirement is prohibitive to consider bronchoscopy or other invasive interventions without intubating her which the patient and I would like to avoid. Patient's prognosis is guarded at this point time. We will continue to follow closely with you. Admission and Anticipated Discharge Date Admission Date: March 30, 2021 Subjective Patient seen and examined. EMR reviewed. Unfortunately the patient has had escalation of her oxygen requirement is back on high flow oxygen. She tried proning last night although it is unclear if it is going to offer her clinical benefit given the appearance of her radiograph. She feels like she is doing okay and is not suffering any increased work of breathing or significant dyspnea. She does complain that she does not feel that her lungs are working right. She does intermittently describe some anxiety associated with low oxygen levels and has been given low doses of Xanax to assist with this. Review of Systems Review of Systems: All systems reviewed & are unremarkable except as noted in HPI & below Physical Exam Constitutional: well developed, well nourished and + ill appearing; no acute distress Eyes: PERRL, conjunctivae normal, anicteric sclerae ENMT: Ears: no external ear abnormality Nose: no external nose abnormality Respiratory: normal respiratory effort; no respiratory distress Auscultation: + diminished lung sounds Cardiovascular: Rate/Rhythm: regular rhythm and + tachycardic Vessels: normal peripheral pulses Extremities: + edema (+1 edema BLE) Gastrointestinal (Abdomen): normal bowel sounds, soft, nontender, no hepatosplenomegaly Musculoskeletal: no cyanosis or clubbing, extremities motor strength 5/5 Skin: no rashes, warm and dry Neurologic: PERRL, EOMI, accommodation nl, no face palsy, no dysarthria Psychiatric: A+Ox3, euthymic affect Results & Data Results & Data ([facility]) Vital Signs (Past 12 Hours) Vital Signs Temp Pulse Resp BP BP Pulse Ox 04/04/21 11:16 92 H 24 94 04/04/21 08:08 36.5 C 74 28 H 144/90 H 144/90 H 90 04/04/21 07:54 36.5 C 73 27 H 133/93 90 04/04/21 05:35 76 24 94 04/04/21 03:09 69 24 96 Critical Care Results & Data Vital Signs (Past 12 Hours) Vital Signs Temp Pulse Resp BP BP Pulse Ox 04/04/21 12:09 36.6 C 89 24 155/85 H 93 04/04/21 11:16 92 H 24 94 04/04/21 08:08 36.5 C 74 28 H 144/90 H 144/90 H 90 04/04/21 07:54 36.5 C 73 27 H 133/93 90 04/04/21 05:35 76 24 94 04/04/21 03:09 69 24 96 Lab & Micro Results (Past 24 Hours) RBC 3.99 M/uL (4.2-5.4) L 04/04/21 WBC 15.67 K/uL (4.8-10.8) H 04/04/21 Hgb 11.7 g/dL (12.0-16.0) L 04/04/21 Hct 36.6 % (37-47) L 04/04/21 MCV 91.7 fL (80-100) 04/04/21 MCH 29.3 pg (25-34) 04/04/21 MCHC 32.0 g/dL (32-36) 04/04/21 RDW Standard Deviation 46.7 fL (36.4-46.3) H 04/04/21 RDW Coefficient of Variation 14.0 % (11.5-14.5) 04/04/21 Plt Count 645 K/uL (130-400) H 04/04/21 MPV 9.9 fL (7.4-10.4) 04/04/21 Na 141 mmol/L (136-145) 04/04/21 K 4.0 mmol/L (3.5-5.1) 04/04/21 Cl 108 mmol/L (98-107) H 04/04/21 CO2 27 mmol/L (21-32) 04/04/21 Anion Gap 6.0 (3-11) 04/04/21 BUN 17 mg/dl (7-18) 04/04/21 Creatinine 0.49 mg/dl (0.6-1.2) L 04/04/21 Estimated GFR ( Amer) 118.5 ml/min 04/04/21 Estimated GFR (Non-Af Amer) 102.2 ml/min 04/04/21 BUN/Creatinine Ratio 35.0 (10-20) H 04/04/21 Glu 110 mg/dl (70-99) H 04/04/21 Ca 8.6 mg/dl (8.5-10.1) 04/04/21 Calcium Level 8.6 mg/dl (8.5-10.1) 04/04/21 07:20 04/04/21 Microbiology 04/02/21 19:25 Aerobic Blood Culture - Preliminary Blood No growth in Aerobic bottle after 24 hours. Anaerobic Blood Culture - Preliminary No growth in Anaerobic bottle after 24 hours. 04/02/21 19:32 Aerobic Blood Culture - Preliminary Blood No growth in Aerobic bottle after 24 hours. Anaerobic Blood Culture - Preliminary No growth in Anaerobic bottle after 24 hours. 03/30/21 12:35 Aerobic Blood Culture - Preliminary Blood Coag neg staph not lugdunensis Anaerobic Blood Culture - Preliminary Coag neg staph not lugdunensis Coag neg staph not lugdunensis#2 Diagnostic Findings (Past 24 Hours) Chest X-Ray 04/04/21 07:00 XR chest 1V portable CLINICAL HISTORY: pneumomediastinum COMPARISON STUDY: Chest CT March 30, 2021 chest radiograph April 03, 2021. FINDINGS: Right internal jugular central line is in place. There is no pneumothorax. Cardiomediastinal silhouette is stable. Extensive bilateral airspace opacities persist. Pneumomediastinum is not evident by radiography. IMPRESSION: 1. No smoking change in extensive bilateral airspace opacities. 2. No pneumomediastinum identified by radiography. ACT 112: Negative or not required by law. Electronically signed by: Dave Franz M.D. 04/04/2021 7:32 AM I & O Totals 24 Hours 04/03/21 04/04/21 04/05/21 06:59 06:59 06:59 Intake Total 1420 / 1420 580.000 / 580.000 Output Total 1500 / 1500 450 / 450 Balance -80 / -80 130.000 / 130.000 Cumulative 03/30/21 12:02 thru 04/04/21 08:00 Intake Total 5205.000 Output Total 4550 Balance 655.000 RT Ventilator Mngmt (Last Documented) Ventilator Ordered Settings Respiratory Rate 24 04/04/21 12:09 Fraction of Inspired Oxygen 90 04/04/21 12:09 Ventilator - PT Measurements Respiratory Rate 24 PG Care Time/CCT Total # of Minutes Spent Total Time Spent with Patient: Total time spent is greater than 50% in coordination of care (as documented) at patient's floor/unit and/or counseling patient: Coding Level of Care Code 42038 Subseq Hosp Care Lvl 3 Diagnoses Acute on chronic respiratory failure with hypoxia J96.21 History of COVID-19 Z86.16 Pneumomediastinum J98.2 Pericardial effusion I31.3
[2021-04-04] MEDS: dexAMETHasone 20 MG in DEXTROSE 5% 25 ML IV SCH (13:08)
[2021-04-04] MEDS ORDERED: FUROSEMIDE 40 MG in SYRINGE 0 ML IV SCH (13:15)
[2021-04-04] MEDS ORDERED: VANCOMYCIN TROUGH ONE (13:30)
--- NOTE | 2021-04-04 16:31 | Pharmacy Report ---
Pharmacy Abx Dose Short Note - Date of Service April 04, 2021 - Assessment & Plan Assessment 65 year old F receiving Vancomycin for treatment of bacteremia/SSTI Day # 4 of antimicrobial therapy. Plan Vancomycin * Trough level of 14.0 mcg/mL is therapeutic * Continue dose of 1250 mg IV every 12 hours OR Change to mg IV every hours * Goal trough level 15-20 * Will reassess and order additional trough levels. Pharmacy will continue to follow and will adjust dose/frequency as necessary. Thank you.
[2021-04-04] MEDS: ALPRAZolam 0.25 MG TABLET PO PRN (20:31)
[2021-04-04] MEDS: ENOXAPARIN INJ 40 MG/0.4 ML SYR SQ SCH (20:32)
[2021-04-05] MEDS: NITROGLYCERIN 2% OINTMENT 30GM TUBE EXT SCH ×4 (04:00→21:00)
[2021-04-05] MEDS: VANCOMYCIN HCL 1,250 MG in SODIUM CHLORIDE 0.9% 250 ML IV SCH ×2 (04:22→14:24)
[2021-04-05] MEDS: FLUTICASONE PROPIONATE NA SPR 16 GM BTL NAE SCH (09:39)
[2021-04-05] MEDS: ALPRAZolam 0.25 MG TABLET PO PRN ×2 (09:39→23:44)
[2021-04-05] MEDS: valACYclovir HCL 500 MG TABLET PO SCH ×3 (09:40→20:59)
[2021-04-05] MEDS: METOPROLOL SUCC 25MG EXT REL TAB PO SCH ×3 (09:41→20:58)
--- NOTE | 2021-04-05 09:43 | Hospitalist Progress Note ---
Date of Service April 05, 2021 Assessment & Plan (1) Acute on chronic respiratory failure with hypoxia: Plan: 2/2 covid pneumonia (2) Post-COVID syndrome: Plan: Completed courses of dexamethasone and remdesivir on recent admission prior to discharge. Returned with worsening shortness of breath progressed to hypoxic respiratory failure. Per pulmonology she has a CT scan demonstrating fibrotic changes although it is difficult to ascertain whether or not there has been significant progression. Cont steroids and vapotherm. Pulmonary also added nebulized budesonide. Supportive care measures, prone as tolerated. (3) HTN (hypertension): Plan: Improved with nitro paste, continue q6h. (4) Pulmonary hypertension: (5) Pericardial effusion: Plan: small loculated pleural effusion, may suggest increased chronicity/stability. No tamponade physiology on echo. (6) Tachycardia: Plan: Small amount of beta seven started by cardiology, current tachycardia influenced by her state of anxiety. Mostly controlled with the changes. Cont current therapy. (7) Gram-positive bacteremia: Plan: New bacteremia, initiation with vancomycin pending further sensitivities and speciation. [employer], not lugdenensis with multi-drug resistance on sensitivity. TTE this admission did not reveal any evidence of vegetation. Repeat blood cultures are negative and she is afebrle. Source is uncertain but she did have an open skin wound related to her shingles rash on her buttock. Contamination also considered. Awaiting ID consultation for thoughts/recommendations. (8) Herpes zoster: Plan: On bilateral glutes. Cont valtrex for 7 day course (9) DMII (diabetes mellitus, type 2): Plan: Continue basal bolus insulin. Blood sugar elevated related to high dose dexamethasone. Improved glycemic control with help of glycemic pharmacist. (10) Obesity: (11) Physical deconditioning: Plan: PT/OT when appropriate from an oxygen standpoint. (12) DVT prophylaxis: Plan: Lovenox Full code Disposition-continue PCU Theresa Parisi DO [facility] Hospitalist Admission and Anticipated Discharge Date Admission Date: March 30, 2021 Subjective 65-year-old female recently admitted for Covid pneumonia discharged home on elevated amounts of supplemental oxygen and became progressively worse requiring readmission. On high dose steroids with planned taper. In setting of severe anxiety, her steroids have been prematurely de-escalated. She has difficulty proning but per nurse is doing well with the Xanax prn. Denies any pain. Tolerating PO. Compliant with proning. Review of Systems Review of Systems: At least ten systems were reviewed and negative except as indicated in HPI above. Physical Exam Physical Exam: CONSTITUTIONAL: obese, vitals as above, generally ill- appearing, NAD, ++anxious EYES: normal conjunctivae, no scleral icterus ENT: external ear and nose normal, MMM RESPIRATORY: crackles remain at bases bilaterally, no rales or wheezes, normal respiratory effort, poor airflow in upper air skinner. CARDIOVASCULAR: tachy rate and rhythm, S1 and 2 heard without murmurs, gallops or rubs, no JVD, no peripheral edema GASTROINTESTINAL: soft, nontender, ND, no guarding MUSCULOSKELETAL: generalized weakness, no gross focal deficits. Head is normocephalic and atraumatic SKIN: warm and dry, +rash on her left buttock NEUROLOGIC: CN 2-12 grossly intact, normal cognition, normal speech PSYCHIATRIC: alert cooperative and oriented, anxious Results & Data Results & Data ([facility]) Vital Signs (Past 12 Hours) Vital Signs Temp Pulse Resp BP Pulse Ox 04/05/21 06:27 83 24 93 04/05/21 04:26 36.8 C 89 30 H 132/89 91 04/05/21 04:15 84 24 92 04/04/21 22:43 36.6 C 100 H 30 H 119/71 90 Laboratory Results Short CBC 04/05/21 Range/Units 10:05 WBC 15.92 H (4.8-10.8) K/uL Hgb 11.7 L (12.0-16.0) g/dL Hct 36.9 L (37-47) % Plt Count 391 (130-400) K/uL BMP 04/05/21 10:05 Sodium 139 Potassium 3.8 Chloride 107 Carbon Dioxide 27 BUN 21 H Creatinine 0.56 L Glucose 126 H Calcium 7.6 L Medications Administered Current Inpatient Medications Acetaminophen (Acetaminophen 325 Mg Tab) 650 mg PO Q4H PRN PRN Reason: Pain or Fever Stop: 04/29/21 19:09 Alprazolam (Alprazolam 0.25 Mg Tablet) 0.25 mg PO Q8H PRN PRN Reason: severe anxiety Stop: 05/03/21 16:33 Last Admin: 04/05/21 09:39 Dose: 0.25 mg Documented by: Benzonatate (Benzonatate 100 Mg Capsule) 100 mg PO TID PRN PRN Reason: cough Stop: 04/29/21 20:59 Budesonide (Budesonide 0.5 Mg/2 Ml Vial (Pulmicort)) 0.5 mg NEB BIDR NELL Stop: 05/05/21 18:59 Last Admin: 04/05/21 18:26 Dose: 0.5 mg Documented by: Dextrose (Dextrose 50% 50 Ml Syringe) 25 - 50 ml IV UD PRN; Protocol PRN Reason: Hypoglycemia Protocol Stop: 04/29/21 19:09 Enoxaparin Sodium (Enoxaparin Inj 40 Mg/0.4 Ml Syr) 40 mg SQ Q24H NELL Stop: 04/29/21 19:59 Last Admin: 04/05/21 20:58 Dose: 40 mg Documented by: Fluticasone Propionate (Fluticasone Propionate Na Spr 16 Gm Btl) 2 sprays ALE DAILY NELL Stop: 05/02/21 16:29 Last Admin: 04/05/21 09:39 Dose: 2 sprays Documented by: Glucagon (Glucagon For Inj 1 Mg Vial) 1 mg SQ UD PRN; Protocol PRN Reason: Hypoglycemia Protocol Stop: 04/29/21 19:09 Glucose (Glucose 10 Tabs/Tube) 4 - 8 tabs PO UD PRN; Protocol PRN Reason: Hypoglycemia Protocol Stop: 04/29/21 19:09 Glucose (Glucose 40% Gel 15 Gm Tube) 15 - 30 gm PO UD PRN; Protocol PRN Reason: Hypoglycemia Protocol Stop: 04/29/21 19:09 Guaifenesin/Codeine Phosphate (Guaifenesin/Codeine 200mg/20mg 10ml Udc) 10 ml PO Q6H PRN PRN Reason: Cough Stop: 05/01/21 15:45 Last Admin: 04/02/21 10:10 Dose: 10 ml Documented by: Vancomycin HCl 1,250 mg/ (Sodium Chloride) 275 mls @ 200 mls/hr IV Q12H NELL Stop: 04/16/21 01:59 Last Infusion: 04/05/21 15:55 Dose: Infused Documented by: Dexamethasone 6 mg/ Syringe 1.5 mls @ 1 mls/min IV DAILY NELL Stop: 05/05/21 09:29 Last Admin: 04/05/21 12:12 Dose: 1 mls/min Documented by: Insulin Aspart (Insulin Aspart 100 Units/Ml 3 Ml Pen) 0 units SC ACHS [facility] Stop: 04/29/21 19:59 Last Admin: 04/05/21 21:06 Dose: 21 units Documented by: Insulin Glargine (Insulin Glargine Solostar 100 Units/Ml 3 Ml Pen) 12 units SC BID [facility] Stop: 05/05/21 09:59 Last Admin: 04/05/21 21:06 Dose: 12 units Documented by: Levalbuterol HCl (Levalbuterol Tartrate 15 Gm Hfa.Aer.Ad) 2 puffs INH Q4R PRN PRN Reason: Shortness Of Breath Or Wheezing Stop: 04/30/21 12:49 Last Admin: 04/02/21 08:05 Dose: 2 puffs Documented by: Levalbuterol HCl (Levalbuterol Hcl 1.25 Mg/3 Ml Neb) 1.25 mg NEB Q4H PRN PRN Reason: Shortness Of Breath Or Wheezing Stop: 05/01/21 20:06 Last Admin: 04/01/21 21:54 Dose: 1.25 mg Documented by: Melatonin (Melatonin 3 Mg Tab) 3 mg PO HS PRN PRN Reason: insomnia Stop: 04/29/21 19:09 Metoprolol Succinate (Metoprolol Succ 25mg Ext Rel Tab) 12.5 mg PO TID [facility] Stop: 05/03/21 13:59 Last Admin: 04/05/21 20:58 Dose: 12.5 mg Documented by: Miscellaneous (Carbohydrates For Hypoglycemia ) 15 - 30 gm PO UD PRN PRN Reason: Hypoglycemia Protocol Stop: 04/29/21 19:09 Miscellaneous Information (Vancomycin Consult Active) 1 ea N/A UD PRN PRN Reason: Consult Stop: 05/01/21 15:37 Miscellaneous Information (Pharmacy Glycemic Mgmt Consult) 1 ea N/A UD PRN PRN Reason: Consult Stop: 05/02/21 18:31 Nitroglycerin (Nitroglycerin 2% Ointment 30gm Tube) 0.5 inch EXT Q6H [facility] Stop: 05/02/21 14:59 Last Admin: 04/05/21 21:00 Dose: Not Given Documented by: Phenol (Chloraseptic 1.4% Soln 180 Ml Btl) 1 sprays MT Q6H PRN PRN Reason: Sore Throat Stop: 05/05/21 20:58 Valacyclovir HCl (Valacyclovir Hcl 500 Mg Tablet) 1,000 mg PO TID [facility] Stop: 04/08/21 20:59 Last Admin: 04/05/21 20:59 Dose: 1,000 mg Documented by:
[2021-04-05] MEDS: INSULIN ASPART 100 UNITS/ML 3 ML PEN SC SCH ×4 (09:46→21:06)
[2021-04-05] MEDS: INSULIN GLARGINE SOLOSTAR 100 UNITS/ML 3 ML PEN SC SCH ×2 (09:46→21:06)
[2021-04-05 10:43] LABS: BUN Creatinine Ratio 37.5 (10-20); C Reactive Protein 2.65 mg/dl (0-0.29); Calcium 7.6 mg/dl (8.5-10.1); Creatinine Clr Calc Pharmacy 115.5 ml/min; Est GFR (African American) 113.4 ml/min; Est GFR (Non-African American) 97.8 ml/min; Potassium 3.8 mmol/L (3.5-5.1)
[2021-04-05 10:49] LABS: Basophils # (auto) 0.03 K/uL (0-0.2); Basophils % (auto) 0.2 %; Eosinophils # (auto) 0.22 K/uL (0-0.5); Eosinophils % (auto) 1.4 %; Hematocrit (blood only) 36.9 % (37-47); Hemoglobin 11.7 g/dL (12.0-16.0); Immature Granulocytes # (auto) 0.26 K/uL (0.00-0.02); Immature Granulocytes % (auto) 1.6 %; Lymphocytes # (auto) 3.71 K/uL (1.2-3.4); Lymphocytes % (auto) 23.3 %; Mean Corpuscular Hemoglobin 29.8 pg (25-34); Mean Corpuscular Hgb Conc 31.7 g/dL (32-36); Mean Corpuscular Volume 93.9 fL (80-100); Mean Platelet Volume 9.9 fL (7.4-10.4); Monocytes # (auto) 1.39 K/uL (0.11-0.59); Monocytes % (auto) 8.7 %; Neutrophils # (auto) 10.31 K/uL (1.4-6.5); Neutrophils % (auto) 64.8 %; Platelet Count 391 K/uL (130-400); RDW Coefficient of Variation 14.5 % (11.5-14.5); RDW Standard Deviation 49.4 fL (36.4-46.3); Red Blood Count 3.93 M/uL (4.2-5.4); White Blood Count 15.92 K/uL (4.8-10.8)
--- NOTE | 2021-04-05 11:22 | Pharmacy Report ---
Pharmacy Glycemic Short Note 2 - Date of Service April 05, 2021 - Glycemic Short BSG Results (Last 24 hours): 04/04/21 04/04/21 04/04/21 11:27 16:29 20:28 Glucose POC Glucose 156 H 105 H 239 H 04/05/21 04/05/21 09:14 10:05 Glucose 126 H POC Glucose 103 H OUTPATIENT ANTIDIABETIC REGIMEN: * novolin 70/30 30qAM and 15 PM * A1c 12.4% 03/05/21 ASSESSMENT: 04/05/21 * Patient's BSGs yesterday were [phone] mg/dL. * Patient received 66 units of insulin (34 units of basal and 32 units of bolus). * Fasting BSG today was 103 mg/dL. * Patient's dexamethasone decreased from 20 mg daily to 6 mg daily starting today. * Decrease Lantus by 30% to 24 units daily since steroids are decrease significantly. Concern that basal dosing is aggressive because current insulin split is 50/50 with steroids. It is more desirable to have a bolus heavy regimen with steroids. Lower dose available tomorrow for BSG < 120 mg/dL. * Loosen CF as patient's BSGs trend downwards significant when out of range. * Will not tighten CR as patient's hyperglycemic event last night was due to dinner Novolog given @ 1830 and HS check at 2029. Background * Patient currently on high dose steroids, dexamethasone 20 mg IV (day 4/5), and will taper down to 10 mg on 04/05 * BSGs elevated likely d/t steroid, patient received 118 units of insulin yesterday, 46 of which were basal * Novolog parameters and lantus increased yesterday, BSGs have trended down with these changes, will continue same for now * Consider adding NPH with dexamethasone if BSGs continue to be elevated, held off for today as patient trended down overnight and BSGs have been acceptable so far today (all <180 mg/dL) PLAN FOR INPATIENT GLYCEMIC CONTROL: * Hold outpatient oral diabetes medications * Basal insulin * Lantus 12 units SQ BID (Lantus 9 units if BSG < 120 mg/dL) * Bolus insulin * NovoLog per scale ACHS or Q6hrs while NPO * Goal Range: Low 110 mg/dL - High 140 mg/dL * Correction Factor: 15 mg/dL/unit * Nutritional / Prandial insulin per carb ratio of 1 unit per 3 grams CHO consumed Discharge Recommendations * Patient's HbA1C is above goal range (currently goal would be <8% while current HbA1C is 12.4%) * Patient's outpatient regimen JUST started after last admission so has not had time to be evaluated yet. * Please resume outpatient regimen and re-evaluate in 1 month's time.
--- NOTE | 2021-04-05 12:11 | Pulmonology Progress Note ---
Date of Service April 05, 2021 Assessment & Plan (1) Acute on chronic respiratory failure with hypoxia: (2) History of COVID-19: (3) Pneumomediastinum: (4) Pericardial effusion: Plan: Impression: 65-year-old female with Covid pneumonia and hypoxemia and pneumome diastinum. Her chest x-ray is not showing any significant improvement but we have not seen any progression of her pneumomediastinum or development of any pneumothorax. Recommendations: 1. Late-phase ARDS: Attempted to treat the patient with higher doses of steroids however these may have aggravated her anxiety and she has been decreased down to 6 mg a day. I advised the patient that this dosing regiment has not been well studied and its unclear if it will offer her a clinical benefit. interventions at this point time are risk-benefit and if the higher dose of steroids are contributing to anxiety and associated shortness of breath and increased work of breathing, it makes sense to try and decrease the dose and see how she does. We will place her on nebulized budesonide to see if this offers her any clinical benefit as well. 2. Pneumomediastinum: Suspect this is due to the Silver effect. Clinically and radiographically stable over the last several days. No indication for follow-up imaging currently. 3. Continue to wean oxygen as tolerated. Defend oxygen saturation of 88%. Continue out of bed to chair as tolerated. 4. Given the fibrotic peripheral nature of the patient's lung disease on CT scan, I am not sure that proning or positional therapy is going to offer her much in the way of clinical benefit at this point time. 5. Serial procalcitonin and BNP levels were normal so I do not think secondary infection or atypical pulmonary edema are contributing. Patient's prognosis is guarded at this point time. We will continue to follow closely with you. Admission and Anticipated Discharge Date Admission Date: March 30, 2021 Subjective Patient seen and examined. EMR reviewed. Discussed with the hospitalist yesterday. Hospitalist team felt that the higher dose of steroids may have been contributing to her anxiety and perceived shortness of breath. We discussed risk and benefits of potentially decreasing her steroid therapy in an effort to try and improve her agitation. She is been de-escalating down to 6 mg a day and is receiving intermittent Ativan. This morning, the patient states her breathing is about the same. She is fixated on her oxygen saturations as well as on her oxygen requirement. She is occasionally coughing but not expectorating any phlegm. She does not report chest pain or palpitations or significant lower extremity edema. She is not experiencing any fevers chills or night sweats. She is able to eat. Review of Systems Review of Systems: All systems reviewed & are unremarkable except as noted in Subjective Physical Exam Constitutional: well developed and well nourished; no acute distress Eyes: PERRL, conjunctivae normal, anicteric sclerae ENMT: Ears: no external ear abnormality Nose: no external nose abnormality Respiratory: normal respiratory effort; no respiratory distress Auscultation: + diminished lung sounds Cardiovascular: Rate/Rhythm: regular rhythm and + tachycardic Vessels: normal peripheral pulses Extremities: + edema (+1 edema BLE) Gastrointestinal (Abdomen): normal bowel sounds, soft, nontender, no hepatosplenomegaly Musculoskeletal: no cyanosis or clubbing, extremities motor strength 5/5 Skin: no rashes, warm and dry Neurologic: PERRL, EOMI, accommodation nl, no face palsy, no dysarthria Psychiatric: A+Ox3, euthymic affect Results & Data Results & Data ([facility]) Vital Signs (Past 12 Hours) Vital Signs Temp Pulse Resp BP Pulse Ox 04/05/21 11:37 90 26 H 124/104 H 90 04/05/21 11:30 85 18 96 04/05/21 06:27 83 24 93 04/05/21 04:26 36.8 C 89 30 H 132/89 91 04/05/21 04:15 84 24 92 Laboratory Results Follow-up BMP 256 Follow-up procalcitonin 0.17 Follow-up CRP 2.65 Critical Care Results & Data Vital Signs (Past 12 Hours) Vital Signs Temp Pulse Resp BP Pulse Ox 04/05/21 11:37 90 26 H 124/104 H 90 04/05/21 11:30 85 18 96 04/05/21 06:27 83 24 93 04/05/21 04:26 36.8 C 89 30 H 132/89 91 04/05/21 04:15 84 24 92 Lab & Micro Results (Past 24 Hours) RBC 3.93 M/uL (4.2-5.4) L 04/05/21 WBC 15.92 K/uL (4.8-10.8) H 04/05/21 Hgb 11.7 g/dL (12.0-16.0) L 04/05/21 Hct 36.9 % (37-47) L 04/05/21 MCV 93.9 fL (80-100) 04/05/21 MCH 29.8 pg (25-34) 04/05/21 MCHC 31.7 g/dL (32-36) L 04/05/21 RDW Standard Deviation 49.4 fL (36.4-46.3) H 04/05/21 RDW Coefficient of Variation 14.5 % (11.5-14.5) 04/05/21 Plt Count 391 K/uL (130-400) 04/05/21 MPV 9.9 fL (7.4-10.4) 04/05/21 Neutrophils (%) (Auto) 64.8 % 04/05/21 Lymphocytes (%) (Auto) 23.3 % 04/05/21 Monocytes # (Auto) 1.39 K/uL (0.11-0.59) H 04/05/21 Eosinophils # (Auto) 0.22 K/uL (0-0.5) 04/05/21 Immature Granulocyte % (Auto) 1.6 % 04/05/21 Neutrophils # (Auto) 10.31 K/uL (1.4-6.5) H 04/05/21 Lymphocytes # (Auto) 3.71 K/uL (1.2-3.4) H 04/05/21 Monocytes # (Auto) 1.39 K/uL (0.11-0.59) H 04/05/21 Eosinophils # (Auto) 0.22 K/uL (0-0.5) 04/05/21 Basophils # (Auto) 0.03 K/uL (0-0.2) 04/05/21 Immature Granulocyte # (Auto) 0.26 K/uL (0.00-0.02) H 04/05/21 Na 139 mmol/L (136-145) 04/05/21 K 3.8 mmol/L (3.5-5.1) 04/05/21 Cl 107 mmol/L (98-107) 04/05/21 CO2 27 mmol/L (21-32) 04/05/21 Anion Gap 5.0 (3-11) 04/05/21 BUN 21 mg/dl (7-18) H 04/05/21 Creatinine 0.56 mg/dl (0.6-1.2) L 04/05/21 Estimated GFR ( Amer) 113.4 ml/min 04/05/21 Estimated GFR (Non-Af Amer) 97.8 ml/min 04/05/21 BUN/Creatinine Ratio 37.5 (10-20) H 04/05/21 Glu 126 mg/dl (70-99) H 04/05/21 Ca 7.6 mg/dl (8.5-10.1) L 04/05/21 Mg 2.0 mg/dl (1.8-2.4) 04/05/21 10:05 04/05/21 Calcium Level 7.6 mg/dl (8.5-10.1) L 04/05/21 10:05 04/05/21 Microbiology 04/02/21 19:25 Aerobic Blood Culture - Preliminary Blood No growth in Aerobic bottle after 48 hours. Anaerobic Blood Culture - Preliminary No growth in Anaerobic bottle after 48 hours. 04/02/21 19:32 Aerobic Blood Culture - Preliminary Blood No growth in Aerobic bottle after 48 hours. Anaerobic Blood Culture - Preliminary No growth in Anaerobic bottle after 48 hours. 03/30/21 12:30 Aerobic Blood Culture - Preliminary Blood Coag neg staph not lugdunensis Anaerobic Blood Culture - Final No growth in Anaerobic bottle after 5 days. I & O Totals 24 Hours 04/04/21 04/05/21 04/06/21 06:59 06:59 06:59 Intake Total 580.000 / 580.000 572.4 / 572.4 Output Total 450 / 450 2600 / 2600 150 / 150 Balance 130.000 / 130.000 -2027.6 / -2027.6 -150 / -150 Cumulative 03/30/21 12:02 thru 04/05/21 11:38 Intake Total 5777.400 Output Total 7300 Balance -1522.600 RT Ventilator Mngmt (Last Documented) Ventilator Ordered Settings Respiratory Rate 26 04/05/21 11:37 Fraction of Inspired Oxygen 60 04/05/21 11:37 Ventilator - PT Measurements Respiratory Rate 26 PG Care Time/CCT Total # of Minutes Spent Total Time Spent with Patient: Total time spent is greater than 50% in coordination of care (as documented) at patient's floor/unit and/or counseling patient: Coding Level of Care Code 28276 Subseq Hosp Care Lvl 2 Diagnoses Acute on chronic respiratory failure with hypoxia J96.21 History of COVID-19 Z86.16 Pneumomediastinum J98.2 Pericardial effusion I31.3
[2021-04-05] MEDS: dexAMETHasone 6 MG in SYRINGE 0 ML IV SCH (12:12)
[2021-04-05] MEDS ORDERED: dexAMETHasone 10 MG in SYRINGE 0 ML IV SCH (13:00)
[2021-04-05] MEDS: BUDESONIDE 0.5 MG/2 ML VIAL (PULMICORT) NEB SCH (18:26)
[2021-04-05] MEDS: ENOXAPARIN INJ 40 MG/0.4 ML SYR SQ SCH (20:58)
[2021-04-05] MEDS ORDERED: CHLORASEPTIC 1.4% SOLN 180 ML BTL MT PRN (20:59)
[2021-04-06] MEDS: VANCOMYCIN HCL 1,250 MG in SODIUM CHLORIDE 0.9% 250 ML IV SCH ×2 (02:53→13:46)
[2021-04-06] MEDS: NITROGLYCERIN 2% OINTMENT 30GM TUBE EXT SCH ×4 (03:11→20:42)
[2021-04-06] MEDS ORDERED: LORazepam 0.5 MG TAB PO STA (04:02)
[2021-04-06] MEDS: CARBOHYDRATES FOR HYPOGLYCEMIA PO PRN (07:06)
[2021-04-06] MEDS: BUDESONIDE 0.5 MG/2 ML VIAL (PULMICORT) NEB SCH ×2 (08:03→19:24)
[2021-04-06] MEDS: dexAMETHasone 6 MG in SYRINGE 0 ML IV SCH (08:55)
[2021-04-06] MEDS: INSULIN GLARGINE SOLOSTAR 100 UNITS/ML 3 ML PEN SC SCH (08:56)
[2021-04-06] MEDS: FLUTICASONE PROPIONATE NA SPR 16 GM BTL NAE SCH (08:56)
[2021-04-06] MEDS: valACYclovir HCL 500 MG TABLET PO SCH ×3 (08:56→20:32)
[2021-04-06] MEDS: METOPROLOL SUCC 25MG EXT REL TAB PO SCH ×3 (08:56→20:31)
[2021-04-06] MEDS: INSULIN ASPART 100 UNITS/ML 3 ML PEN SC SCH ×4 (08:56→20:35)
[2021-04-06 09:19] LABS: Basophils # (auto) 0.01 K/uL (0-0.2); Basophils % (auto) 0.1 %; Eosinophils # (auto) 0.18 K/uL (0-0.5); Eosinophils % (auto) 0.9 %; Hematocrit (blood only) 39.8 % (37-47); Hemoglobin 12.8 g/dL (12.0-16.0); Immature Granulocytes # (auto) 0.24 K/uL (0.00-0.02); Immature Granulocytes % (auto) 1.2 %; Lymphocytes # (auto) 4.12 K/uL (1.2-3.4); Lymphocytes % (auto) 21.1 %; Mean Corpuscular Hemoglobin 29.8 pg (25-34); Mean Corpuscular Hgb Conc 32.2 g/dL (32-36); Mean Corpuscular Volume 92.8 fL (80-100); Mean Platelet Volume 9.8 fL (7.4-10.4); Monocytes # (auto) 1.54 K/uL (0.11-0.59); Monocytes % (auto) 7.9 %; Neutrophils % (auto) 68.8 %; Platelet Count 569 K/uL (130-400); RDW Coefficient of Variation 14.4 % (11.5-14.5); RDW Standard Deviation 48.3 fL (36.4-46.3); Red Blood Count 4.29 M/uL (4.2-5.4); White Blood Count 19.49 K/uL (4.8-10.8)
[2021-04-06 09:55] LABS: BUN Creatinine Ratio 32.5 (10-20); Calcium 8.9 mg/dl (8.5-10.1); Creatinine Clr Calc Pharmacy 119.2 ml/min; Est GFR (African American) 114.1 ml/min; Est GFR (Non-African American) 98.4 ml/min
--- NOTE | 2021-04-06 13:25 | Pharmacy Report ---
Pharmacy Glycemic Short Note 2 - Date of Service April 06, 2021 - Glycemic Short BSG Results (Last 24 hours): 04/05/21 04/05/21 04/06/21 16:11 20:51 07:05 Glucose POC Glucose 266 H 324 H* 60 L* 04/06/21 04/06/21 04/06/21 07:28 09:02 12:03 Glucose 85 POC Glucose 81 170 H OUTPATIENT ANTIDIABETIC REGIMEN: * novolin 70/30 30qAM and 15 PM * A1c 12.4% 03/05/21 ASSESSMENT: 04/06/21 * Fasting this morning trending down 60/81 mg/dL, will decrease evening lantus dose * Dexamethasone continues at 6 mg daily * BSGs did trend up yesterday afternoon, will keep current parameters, adjust tomorrow if trend continues. 04/05/21 * Patient's BSGs yesterday were [phone] mg/dL. * Patient received 66 units of insulin (34 units of basal and 32 units of bolus). * Fasting BSG today was 103 mg/dL. * Patient's dexamethasone decreased from 20 mg daily to 6 mg daily starting today. * Decrease Lantus by 30% to 24 units daily since steroids are decrease significantly. Concern that basal dosing is aggressive because current insulin split is 50/50 with steroids. It is more desirable to have a bolus heavy regimen with steroids. Lower dose available tomorrow for BSG < 120 mg/dL. * Loosen CF as patient's BSGs trend downwards significant when out of range. * Will not tighten CR as patient's hyperglycemic event last night was due to dinner Novolog given @ 1830 and HS check at 2029. Background * Patient currently on high dose steroids, dexamethasone 20 mg IV (day 4/5), and will taper down to 10 mg on 04/05 * BSGs elevated likely d/t steroid, patient received 118 units of insulin yesterday, 46 of which were basal * Novolog parameters and lantus increased yesterday, BSGs have trended down with these changes, will continue same for now * Consider adding NPH with dexamethasone if BSGs continue to be elevated, held off for today as patient trended down overnight and BSGs have been acceptable so far today (all <180 mg/dL) PLAN FOR INPATIENT GLYCEMIC CONTROL: * Hold outpatient oral diabetes medications * Basal insulin * Lantus 12 units SQ this morning, 8/10 units this evening * Bolus insulin * NovoLog per scale ACHS or Q6hrs while NPO * Goal Range: Low 110 mg/dL - High 140 mg/dL * Correction Factor: 15 mg/dL/unit * Nutritional / Prandial insulin per carb ratio of 1 unit per 3 grams CHO consumed Discharge Recommendations * Patient's HbA1C is above goal range (currently goal would be <8% while current HbA1C is 12.4%) * Patient's outpatient regimen JUST started after last admission so has not had time to be evaluated yet. * Please resume outpatient regimen and re-evaluate in 1 month's time.
--- NOTE | 2021-04-06 13:35 | Hospitalist Progress Note ---
Date of Service April 06, 2021 Assessment & Plan (1) Acute on chronic respiratory failure with hypoxia: Plan: 2/2 covid pneumonia (2) Post-COVID syndrome: Plan: Completed courses of dexamethasone and remdesivir on recent admission prior to discharge. Returned with worsening shortness of breath progressed to hypoxic respiratory failure. Per pulmonology she has a CT scan demonstrating fibrotic changes although it is difficult to ascertain whether or not there has been significant progression. Cont steroids and vapotherm. Pulmonary also added nebulized budesonide. Supportive care measures. (3) HTN (hypertension): Plan: Improved with nitro paste, continue q6h. (4) Pulmonary hypertension: (5) Pericardial effusion: Plan: small loculated pleural effusion, may suggest increased chronicity/stability. No tamponade physiology on echo. (6) Tachycardia: Plan: Small amount of beta seven started by cardiology, current tachycardia influenced by her state of anxiety. Mostly controlled with the changes. Cont current therapy. (7) Gram-positive bacteremia: Plan: New bacteremia, initiation with vancomycin pending further sensitivities and speciation. [employer]GER, not lugdenensis with multi-drug resistance on sensitivity. TTE this admission did not reveal any evidence of vegetation. Repeat blood cultures are negative and she is afebrle. Source is uncertain but she did have an open skin wound related to her shingles rash on her buttock. Contamination also considered. Awaiting ID consultation for thoughts/recommendations. (8) Herpes zoster: Plan: On bilateral glutes. Cont valtrex for 7 day course (9) DMII (diabetes mellitus, type 2): Plan: Continue basal bolus insulin. Blood sugar elevated related to high dose dexamethasone. Improved glycemic control with help of glycemic pharmacist. (10) Obesity: (11) Physical deconditioning: Plan: PT/OT when appropriate from an oxygen standpoint. (12) DVT prophylaxis: Plan: Lovenox Full code [facility] Admission and Anticipated Discharge Date Admission Date: March 30, 2021 Subjective 65-year-old female recently admitted for Covid pneumonia discharged home on elevated amounts of supplemental oxygen and became progressively worse requiring readmission. On high dose steroids with planned taper. In setting of severe anxiety, her steroids have been prematurely de-escalated. She continues to remain very anxious and consumed with her prognosis which is uncertain. We discussed the importance of staying positive and trying not to think too far in the future as this can be overwhelming especially with upcoming holidays. She feels about the same today. Review of Systems Review of Systems: At least ten systems were reviewed and negative except as indicated in HPI above. Physical Exam Physical Exam: CONSTITUTIONAL: obese, vitals as above, generally ill- appearing, NAD, ++anxious EYES: normal conjunctivae, no scleral icterus ENT: external ear and nose normal, MMM RESPIRATORY: crackles remain at bases bilaterally, no rales or wheezes, normal respiratory effort CARDIOVASCULAR: tachy rate and rhythm, S1 and 2 heard without murmurs, gallops or rubs, no JVD, no peripheral edema GASTROINTESTINAL: soft, nontender, ND, no guarding MUSCULOSKELETAL: generalized weakness, no gross focal deficits. Head is normocephalic and atraumatic SKIN: warm and dry, +rash on her left and right buttock NEUROLOGIC: CN 2-12 grossly intact, normal cognition, normal speech PSYCHIATRIC: alert cooperative and oriented, anxious Results & Data Results & Data ([facility]) Vital Signs (Past 12 Hours) Vital Signs Temp Pulse Pulse Resp BP BP Pulse Ox 04/06/21 12:05 36.6 C 98 H 26 H 142/90 H 92 04/06/21 10:32 102 H 22 87 L 04/06/21 09:00 107 H 26 H 124/88 87 L 04/06/21 08:03 98 H 18 92 04/06/21 08:00 98 H 04/06/21 07:23 36.8 C 96 H 25 H 173/124 H 93 04/06/21 05:49 81 21 90 04/06/21 05:25 91 04/06/21 04:50 95 04/06/21 04:05 90 04/06/21 04:02 88 L 04/06/21 03:57 88 L 04/06/21 03:41 88 L 04/06/21 02:55 36.5 C 78 20 134/81 93 04/06/21 02:30 89 20 94 Laboratory Results Short CBC 04/06/21 Range/Units 09:02 WBC 19.49 H (4.8-10.8) K/uL Hgb 12.8 (12.0-16.0) g/dL Hct 39.8 (37-47) % Plt Count 569 H (130-400) K/uL BMP 04/06/21 09:02 Sodium 141 Potassium 4.0 Chloride 107 Carbon Dioxide 30 BUN 18 Creatinine 0.55 L Glucose 85 Calcium 8.9 D Medications Administered Current Inpatient Medications Acetaminophen (Acetaminophen 325 Mg Tab) 650 mg PO Q4H PRN PRN Reason: Pain or Fever Stop: 04/29/21 19:09 Alprazolam (Alprazolam 0.25 Mg Tablet) 0.25 mg PO Q8H PRN PRN Reason: severe anxiety Stop: 05/03/21 16:33 Last Admin: 04/05/21 23:44 Dose: 0.25 mg Documented by: Benzonatate (Benzonatate 100 Mg Capsule) 100 mg PO TID PRN PRN Reason: cough Stop: 04/29/21 20:59 Budesonide (Budesonide 0.5 Mg/2 Ml Vial (Pulmicort)) 0.5 mg NEB BIDR NELL Stop: 05/05/21 18:59 Last Admin: 04/06/21 08:03 Dose: 0.5 mg Documented by: Dextrose (Dextrose 50% 50 Ml Syringe) 25 - 50 ml IV UD PRN; Protocol PRN Reason: Hypoglycemia Protocol Stop: 04/29/21 19:09 Enoxaparin Sodium (Enoxaparin Inj 40 Mg/0.4 Ml Syr) 40 mg SQ Q24H [facility] Stop: 04/29/21 19:59 Last Admin: 04/05/21 20:58 Dose: 40 mg Documented by: Fluticasone Propionate (Fluticasone Propionate Na Spr 16 Gm Btl) 2 sprays ALE DAILY [facility] Stop: 05/02/21 16:29 Last Admin: 04/06/21 08:56 Dose: Not Given Documented by: Glucagon (Glucagon For Inj 1 Mg Vial) 1 mg SQ UD PRN; Protocol PRN Reason: Hypoglycemia Protocol Stop: 04/29/21 19:09 Glucose (Glucose 10 Tabs/Tube) 4 - 8 tabs PO UD PRN; Protocol PRN Reason: Hypoglycemia Protocol Stop: 04/29/21 19:09 Glucose (Glucose 40% Gel 15 Gm Tube) 15 - 30 gm PO UD PRN; Protocol PRN Reason: Hypoglycemia Protocol Stop: 04/29/21 19:09 Guaifenesin/Codeine Phosphate (Guaifenesin/Codeine 200mg/20mg 10ml Udc) 10 ml PO Q6H PRN PRN Reason: Cough Stop: 05/01/21 15:45 Last Admin: 04/02/21 10:10 Dose: 10 ml Documented by: Vancomycin HCl 1,250 mg/ (Sodium Chloride) 275 mls @ 200 mls/hr IV Q12H [facility] Stop: 04/16/21 01:59 Last Infusion: 04/06/21 05:35 Dose: Infused Documented by: Dexamethasone 6 mg/ Syringe 1.5 mls @ 1 mls/min IV DAILY [facility] Stop: 05/05/21 09:29 Last Admin: 04/06/21 08:55 Dose: 1 mls/min Documented by: Insulin Aspart (Insulin Aspart 100 Units/Ml 3 Ml Pen) 0 units SC ACHS [facility] Stop: 04/29/21 19:59 Last Admin: 04/06/21 08:56 Dose: 2 units Documented by: Insulin Glargine (Insulin Glargine Solostar 100 Units/Ml 3 Ml Pen) 0 units SC HS [facility]; Protocol Stop: 05/06/21 20:59 Insulin Glargine (Insulin Glargine Solostar 100 Units/Ml 3 Ml Pen) 12 units SC QAM [facility] Stop: 05/05/21 09:59 Levalbuterol HCl (Levalbuterol Tartrate 15 Gm Hfa.Aer.Ad) 2 puffs INH Q4R PRN PRN Reason: Shortness Of Breath Or Wheezing Stop: 04/30/21 12:49 Last Admin: 04/02/21 08:05 Dose: 2 puffs Documented by: Levalbuterol HCl (Levalbuterol Hcl 1.25 Mg/3 Ml Neb) 1.25 mg NEB Q4H PRN PRN Reason: Shortness Of Breath Or Wheezing Stop: 05/01/21 20:06 Last Admin: 04/01/21 21:54 Dose: 1.25 mg Documented by: Melatonin (Melatonin 3 Mg Tab) 3 mg PO HS PRN PRN Reason: insomnia Stop: 04/29/21 19:09 Metoprolol Succinate (Metoprolol Succ 25mg Ext Rel Tab) 12.5 mg PO TID [facility] Stop: 05/03/21 13:59 Last Admin: 04/06/21 08:56 Dose: 12.5 mg Documented by: Miscellaneous (Carbohydrates For Hypoglycemia ) 15 - 30 gm PO UD PRN PRN Reason: Hypoglycemia Protocol Stop: 04/29/21 19:09 Last Admin: 04/06/21 07:06 Dose: 15 gm Documented by: Miscellaneous Information (Vancomycin Consult Active) 1 ea N/A UD PRN PRN Reason: Consult Stop: 05/01/21 15:37 Miscellaneous Information (Pharmacy Glycemic Mgmt Consult) 1 ea N/A UD PRN PRN Reason: Consult Stop: 05/02/21 18:31 Nitroglycerin (Nitroglycerin 2% Ointment 30gm Tube) 0.5 inch EXT Q6H NELL Stop: 05/02/21 14:59 Last Admin: 04/06/21 09:38 Dose: 0.5 inch Documented by: Phenol (Chloraseptic 1.4% Soln 180 Ml Btl) 1 sprays MT Q6H PRN PRN Reason: Sore Throat Stop: 05/05/21 20:58 Valacyclovir HCl (Valacyclovir Hcl 500 Mg Tablet) 1,000 mg PO TID NELL Stop: 04/08/21 20:59 Last Admin: 04/06/21 08:56 Dose: 1,000 mg Documented by:
--- NOTE | 2021-04-06 14:16 | Pulmonology Progress Note ---
Date of Service April 06, 2021 Assessment & Plan (1) Acute on chronic respiratory failure with hypoxia: (2) History of COVID-19: (3) Pneumomediastinum: (4) Pericardial effusion: Plan: Impression: 65-year-old female with Covid pneumonia and hypoxemia and pneumome diastinum. Her chest x-ray is not showing any significant improvement but we have not seen any progression of her pneumomediastinum or development of any pneumothorax. Recommendations: 1. Late-phase ARDS: Attempted to treat the patient with higher doses of steroids however these may have aggravated her anxiety and she has been decreased down to 6 mg a day. Unclear if this is can offer her a benefit at this point time. She is outside the window for other adjunctive therapies. 2. Pneumomediastinum: Suspect this is due to the Silver effect. Clinically and radiographically stable over the last several days. No indication for follow-up imaging currently. 3. Continue to wean oxygen as tolerated. Defend oxygen saturation of 88%. Continue out of bed to chair as tolerated. 4. Given the fibrotic peripheral nature of the patient's lung disease on CT scan, I am not sure that proning or positional therapy is going to offer her much in the way of clinical benefit at this point time. 5. Serial procalcitonin and BNP levels were normal so I do not think secondary infection or atypical pulmonary edema are contributing. She appears stagnant at this point time. She is not getting much better but is not showing clinical deterioration. Continue supportive care. Admission and Anticipated Discharge Date Admission Date: March 30, 2021 Subjective Patient seen and examined. EMR reviewed. She seems clinically stagnant without much significant improvement or deterioration at this point time. She is unclear if the medications or decreasing the steroids are having an impact on her anxiety level. She is not reporting any issues with cough or chest pain. She does not feel more short of breath. She is tolerating a diet. Review of Systems Review of Systems: All systems reviewed & are unremarkable except as noted in Subjective Physical Exam Constitutional: well developed and well nourished; no acute distress Respiratory: normal respiratory effort; no respiratory distress Auscultation: + diminished lung sounds Cardiovascular: Rate/Rhythm: regular rhythm Gastrointestinal (Abdomen): normal bowel sounds, soft, nontender, no hepatosplenomegaly Musculoskeletal: no cyanosis or clubbing, extremities motor strength 5/5 Skin: no rashes, warm and dry Psychiatric: A+Ox3, euthymic affect Results & Data Results & Data ([facility]) Vital Signs (Past 12 Hours) Vital Signs Temp Pulse Pulse Resp BP BP Pulse Ox 04/06/21 12:05 36.6 C 98 H 26 H 142/90 H 92 04/06/21 10:32 102 H 22 87 L 04/06/21 09:00 107 H 26 H 124/88 87 L 04/06/21 08:03 98 H 18 92 04/06/21 08:00 98 H 04/06/21 07:23 36.8 C 96 H 25 H 173/124 H 93 04/06/21 05:49 81 21 90 04/06/21 05:25 91 04/06/21 04:50 95 04/06/21 04:05 90 04/06/21 04:02 88 L 04/06/21 03:57 88 L 04/06/21 03:41 88 L 04/06/21 02:55 36.5 C 78 20 134/81 93 04/06/21 02:30 89 20 94 Laboratory Results 04/06/21 09:02 04/06/21 09:02 Diagnostic Findings No new imaging PG Care Time/CCT Total # of Minutes Spent Total Time Spent with Patient: Total time spent is greater than 50% in coordination of care (as documented) at patient's floor/unit and/or counseling patient: Coding Level of Care Code 77348 Subseq Hosp Care Lvl 2 Diagnoses Acute on chronic respiratory failure with hypoxia J96.21 History of COVID-19 Z86.16 Pneumomediastinum J98.2 Pericardial effusion I31.3
[2021-04-06] MEDS: ENOXAPARIN INJ 40 MG/0.4 ML SYR SQ SCH (20:31)
[2021-04-06] MEDS: ALPRAZolam 0.25 MG TABLET PO PRN (20:37)
[2021-04-06] MEDS ORDERED: INSULIN GLARGINE SOLOSTAR 100 UNITS/ML 3 ML PEN SC SCH (21:00)
[2021-04-07] MEDS: VANCOMYCIN HCL 1,250 MG in SODIUM CHLORIDE 0.9% 250 ML IV SCH ×2 (03:15→14:56)
[2021-04-07] MEDS: CARBOHYDRATES FOR HYPOGLYCEMIA PO PRN (03:31)
[2021-04-07] MEDS: NITROGLYCERIN 2% OINTMENT 30GM TUBE EXT SCH ×4 (03:33→21:37)
[2021-04-07 07:09] LABS: Hematocrit (blood only) 37.4 % (37-47); Mean Corpuscular Hemoglobin 29.6 pg (25-34); Mean Corpuscular Hgb Conc 32.1 g/dL (32-36); Mean Corpuscular Volume 92.3 fL (80-100); Platelet Count 533 K/uL (130-400); RDW Coefficient of Variation 14.7 % (11.5-14.5); RDW Standard Deviation 49.1 fL (36.4-46.3); Red Blood Count 4.05 M/uL (4.2-5.4); White Blood Count 20.14 K/uL (4.8-10.8)
[2021-04-07 07:38] LABS: BUN Creatinine Ratio 30.9 (10-20); Calcium 8.8 mg/dl (8.5-10.1); Creatinine Clr Calc Pharmacy 116.6 ml/min; Est GFR (African American) 113.4 ml/min; Est GFR (Non-African American) 97.8 ml/min; Magnesium 2.4 mg/dl (1.8-2.4); Potassium 4.3 mmol/L (3.5-5.1)
[2021-04-07] MEDS: BUDESONIDE 0.5 MG/2 ML VIAL (PULMICORT) NEB SCH ×2 (07:44→19:51)
[2021-04-07] MEDS: dexAMETHasone 6 MG in SYRINGE 0 ML IV SCH (08:36)
[2021-04-07] MEDS: METOPROLOL SUCC 25MG EXT REL TAB PO SCH ×3 (08:36→21:37)
[2021-04-07] MEDS: valACYclovir HCL 500 MG TABLET PO SCH ×3 (08:37→21:37)
[2021-04-07] MEDS: INSULIN GLARGINE SOLOSTAR 100 UNITS/ML 3 ML PEN SC SCH (08:38)
[2021-04-07] MEDS: INSULIN ASPART 100 UNITS/ML 3 ML PEN SC SCH ×4 (08:39→21:36)
[2021-04-07] MEDS: FLUTICASONE PROPIONATE NA SPR 16 GM BTL NAE SCH (08:40)
[2021-04-07] MEDS ORDERED: INSULIN HUMAN NPH SC SCH (09:00)
[2021-04-07] MEDS ORDERED: FUROSEMIDE 40 MG in SYRINGE 0 ML IV ONE (10:34)
[2021-04-07] MEDS ORDERED: SERTRALINE HCL 50 MG TABLET PO ONE (10:35)
[2021-04-07] MEDS ORDERED: FUROSEMIDE 40 MG/4 ML VIAL IV ONE (10:45)
--- NOTE | 2021-04-07 11:57 | Pharmacy Report ---
Pharmacy Glycemic Short Note 2 - Date of Service April 07, 2021 - Glycemic Short BSG Results (Last 24 hours): 04/06/21 04/06/21 04/06/21 12:03 16:33 20:14 Glucose POC Glucose 170 H 314 H* 277 H 04/07/21 04/07/21 04/07/21 03:30 03:55 06:47 Glucose 115 H POC Glucose 63 L* 110 H 04/07/21 04/07/21 07:36 11:36 Glucose POC Glucose 97 115 H OUTPATIENT ANTIDIABETIC REGIMEN: * novolin 70/30 30qAM and 15 PM * A1c 12.4% 03/05/21 ASSESSMENT: 04/07/21 * Pt hypoglycemic again this morning at 63. Will discontinue evening Lantus and initiate NPH this morning as patient has trended up significantly at dinner and HS. * Dex 6mg IV daily continues aznd 04/06/21 * Fasting this morning trending down 60/81 mg/dL, will decrease evening lantus dose * Dexamethasone continues at 6 mg daily * BSGs did trend up yesterday afternoon, will keep current parameters, adjust tomorrow if trend continues. 04/05/21 * Patient's BSGs yesterday were [phone] mg/dL. * Patient received 66 units of insulin (34 units of basal and 32 units of bolus). * Fasting BSG today was 103 mg/dL. * Patient's dexamethasone decreased from 20 mg daily to 6 mg daily starting today. * Decrease Lantus by 30% to 24 units daily since steroids are decrease significantly. Concern that basal dosing is aggressive because current insulin split is 50/50 with steroids. It is more desirable to have a bolus heavy regimen with steroids. Lower dose available tomorrow for BSG < 120 mg/dL. * Loosen CF as patient's BSGs trend downwards significant when out of range. * Will not tighten CR as patient's hyperglycemic event last night was due to dinner Novolog given @ 1830 and HS check at 2029. Background * Patient currently on high dose steroids, dexamethasone 20 mg IV (day 4/5), and will taper down to 10 mg on 04/05 * BSGs elevated likely d/t steroid, patient received 118 units of insulin yesterday, 46 of which were basal * Novolog parameters and lantus increased yesterday, BSGs have trended down with these changes, will continue same for now * Consider adding NPH with dexamethasone if BSGs continue to be elevated, held off for today as patient trended down overnight and BSGs have been acceptable so far today (all <180 mg/dL) PLAN FOR INPATIENT GLYCEMIC CONTROL: * Hold outpatient oral diabetes medications * Basal insulin * Lantus 12 units SQ qam * NPH 10 units qam with dex * Bolus insulin * NovoLog per scale ACHS or Q6hrs while NPO * Goal Range: Low 110 mg/dL - High 140 mg/dL * Correction Factor: 15 mg/dL/unit * Nutritional / Prandial insulin per carb ratio of 1 unit per 3 grams CHO consumed Discharge Recommendations * Patient's HbA1C is above goal range (currently goal would be <8% while current HbA1C is 12.4%) * Patient's outpatient regimen JUST started after last admission so has not had time to be evaluated yet. * Please resume outpatient regimen and re-evaluate in 1 month's time.
[2021-04-07] MEDS ORDERED: VANCOMYCIN TROUGH ONE (13:30)
--- NOTE | 2021-04-07 14:53 | Pulmonology Progress Note ---
Date of Service April 07, 2021 Assessment & Plan (1) Acute on chronic respiratory failure with hypoxia: (2) History of COVID-19: (3) Pneumomediastinum: (4) Pericardial effusion: Plan: Impression: 65-year-old female with Covid pneumonia and hypoxemia and pneumome diastinum. Her chest x-ray is not showing any significant improvement but we have not seen any progression of her pneumomediastinum or development of any pneumothorax. Recommendations: 1. Late-phase ARDS: Attempted to treat the patient with higher doses of steroids however these may have aggravated her anxiety and she has been decreased down to dexamethasone 6 mg a day. Unclear if there is benefit to steroids as she was originally treated at [facility] 03/05/2021 to 03/25/2021 for Covid pneumonia. She had completed courses of dexamethasone and remdesivir during that period. She was discharged home on 4 L/min of continuous supplemental oxygen and feels as though she never completely recovered. Would continue supportive care at this time. Continue to attempt to titrate supplemental oxygen to get her off of high flow. 2. Pneumomediastinum: Suspect this is due to the Silver effect. Clinically and radiographically stable over the last several days. Most recent chest x- rays 04/04/2021. No indication for follow-up imaging currently. 3. Continue to wean oxygen as tolerated. Maintain minimum oxygen saturation of 88%. Continue out of bed to chair as tolerated. Ambulate as tolerated. 4. Given the fibrotic peripheral nature of the patient's lung disease on CT scan, I am not sure that proning or positional therapy is going to offer her much in the way of clinical benefit at this point time. Patient states that she does not particularly have difficulty with self-proning but also notices no benefit. 5. Serial procalcitonin and BNP levels were normal. Secondary infection or atypical pulmonary edema unlikely. She is not getting much better but is not showing clinical deterioration. Continue supportive care. Continue to monitor for any changes Admission and Anticipated Discharge Date Admission Date: March 30, 2021 Subjective Attending: Dr. Kitchen Patient seen and examined. She is in room 211 on the Covid unit. The patient continues to require high flow oxygenation. She is showing improvement since admission but is fairly stagnant over the last 2 or 3 days. She continues with some shortness of breath but no acute distress. She is tolerating high flow oxygen. She is tolerating her diet. She is frustrated with her progress and her lack of improvement. The patient denies any fever chills sweats or rigors. She has no diarrhea. She has no abdominal pain. She has no back pain. Chief complaint is shortness of breath. No evidence of hemoptysis. She states that she is fatigued. No other acute complaints. Review of Systems Review of Systems: All systems reviewed & are unremarkable except as noted in Subjective Physical Exam Physical Exam: GENERAL : No acute distress EYES: No icterus, gaze conjugate NOSE: No evidence of epistaxis. High flow nasal cannula in place MOUTH: No lesions or candidiasis NECK: Supple LUNGS: Bibasilar crackles HEART: Regular, rate is in the mid 90s ABDOMEN: Soft, NT, ND, BS Present EXTREMITIES: No LE edema, pedal pulses intact NEURO: A&OX3 Results & Data Results & Data ([facility]) Vital Signs (Past 12 Hours) Vital Signs Temp Pulse Resp BP BP Pulse Ox 04/07/21 11:11 36.9 C 101 H 23 154/84 H 89 L 04/07/21 10:58 99 H 22 90 04/07/21 07:46 90 18 94 04/07/21 07:33 36.7 C 88 36 H 140/92 95 04/07/21 06:53 92 04/07/21 05:52 90 20 91 04/07/21 05:17 90 04/07/21 03:27 36.5 C 93 H 24 133/95 88 L Laboratory Results 04/07/21 06:47 04/07/21 06:47 Diagnostic Findings No further diagnostic imaging PG Care Time/CCT Total # of Minutes Spent Total Time Spent with Patient: Total time spent is greater than 50% in coordination of care (as documented) at patient's floor/unit and/or counseling patient:30 Coding Level of Care Code 65254 Subseq Hosp Care Lvl 3 Diagnoses Acute on chronic respiratory failure with hypoxia J96.21 History of COVID-19 Z86.16 Pneumomediastinum J98.2 Pericardial effusion I31.3 Time Spent (min) 30
--- NOTE | 2021-04-07 14:58 | Pharmacy Report ---
Pharmacy Vanc AUC Short Note - Date of Service April 07, 2021 - Assessment & Plan Assessment 65 year old F receiving for treatment of bacteremia. Pertinent microbiologic data includes: Coag neg staph 3/4 bcx from 03/30. Subsequent bcx cleared. Day # 7 of antimicrobial therapy. Plan Vancomycin * AUC/ALEXIS is the preferred PK/PD target for vancomycin * AUC guided dosing is effective and associated with decreased risk of nephrotoxicity compared to traditional trough targets * Trough level of 15.2 mcg/mL is predicted to achieve target AUC/ALEXIS of 400-600 mg/L.hr and may be associated with a 9 % risk of nephrotoxicity * Continue dose of 1250 mg IV every 12 hours * Plan to recheck Trough level in in ~3 days or as clinically indicated Pharmacy will continue to follow and will adjust dose/frequency as necessary. Thank you.
--- NOTE | 2021-04-07 19:17 | Hospitalist Progress Note ---
Date of Service April 07, 2021 Assessment & Plan (1) Acute on chronic respiratory failure with hypoxia: Plan: 2/2 covid pneumonia (2) Post-COVID syndrome: Plan: Completed courses of dexamethasone and remdesivir on recent admission prior to discharge. Returned with worsening shortness of breath progressed to hypoxic respiratory failure. Per pulmonology she has a CT scan demonstrating fibrotic changes although it is difficult to ascertain whether or not there has been significant progression. Cont steroids and vapotherm. Pulmonary also added nebulized budesonide. Supportive care measures. (3) Anxiety: Plan: Cont Xanax PRN for panick attacks and started low dose sertraline today to help with longer term anxiety. She is having alot of difficulty coping with her situation at this point. If she is tolerating this small dose, would increase to 50mg in a few days and then have her reassess in a few weeks with her PCP. (4) HTN (hypertension): Plan: Improved with nitro paste, continue q6h. (5) Pulmonary hypertension: (6) Pericardial effusion: Plan: small loculated pleural effusion, may suggest increased chronicity/stability. No tamponade physiology on echo. (7) Tachycardia: Plan: Small amount of beta seven started by cardiology, current tachycardia influenced by her state of anxiety. Mostly controlled with the changes. Cont current therapy. (8) Gram-positive bacteremia: Plan: New bacteremia, initiation with vancomycin pending further sensitivities and speciation. PHP ARCHITECT, not lugdenensis with multi-drug resistance on sensitivity. TTE this admission did not reveal any evidence of vegetation. Repeat blood cultures are negative and she is afebrle. Source is uncertain but she did have an open skin wound related to her shingles rash on her buttock. Contamination also considered. Awaiting ID consultation for thoughts/recommendations. (9) Herpes zoster: Plan: On bilateral glutes. Cont valtrex for 7 day course, last day is 04/08. (10) DMII (diabetes mellitus, type 2): Plan: Continue basal bolus insulin. Blood sugar elevated related to high dose dexamethasone. Improved glycemic control with help of glycemic pharmacist. (11) Obesity: (12) Physical deconditioning: Plan: PT/OT when appropriate from an oxygen standpoint. (13) DVT prophylaxis: Plan: Lovenox Full code Disposition-continue PCU [facility] Admission and Anticipated Discharge Date Admission Date: March 30, 2021 Subjective 65-year-old female recently admitted for Covid pneumonia discharged home on elevated amounts of supplemental oxygen and became progressively worse requiring readmission. On high dose steroids with planned taper. In setting of severe anxiety, her steroids have been prematurely de-escalated. She continues to remain very anxious and consumed with her prognosis which is uncertain. We discussed the importance of staying positive and trying not to think too far in the future as this can be overwhelming especially with upcoming holidays. She continues to be upset and obsess about her settings and prognosis. She denies any pain or other issues, just continues to report weakness and shortness of breath especially with exertion. Review of Systems Review of Systems: At least ten systems were reviewed and negative except as indicated in HPI above. Physical Exam Physical Exam: CONSTITUTIONAL: obese, vitals as above, generally ill- appearing, NAD, ++anxious EYES: normal conjunctivae, no scleral icterus ENT: external ear and nose normal, MMM RESPIRATORY: crackles remain at bases bilaterally, no rales or wheezes, normal respiratory effort CARDIOVASCULAR: reg rate and rhythm, S1 and 2 heard without murmurs, gallops or rubs, no JVD, no peripheral edema GASTROINTESTINAL: soft, nontender, ND, no guarding MUSCULOSKELETAL: generalized weakness, no gross focal deficits. Head is normocephalic and atraumatic SKIN: warm and dry, shingles rash not evaluated today on buttocks. NEUROLOGIC: CN 2-12 grossly intact, normal cognition, normal speech PSYCHIATRIC: alert cooperative and oriented, anxious Results & Data Results & Data ([facility]) Vital Signs (Past 12 Hours) Vital Signs Temp Pulse Resp BP BP Pulse Ox 04/07/21 15:41 37.2 C 106 H 30 H 139/94 89 L 04/07/21 15:11 113 H 22 89 L 04/07/21 11:11 36.9 C 101 H 23 154/84 H 89 L 04/07/21 10:58 99 H 22 90 04/07/21 07:46 90 18 94 04/07/21 07:33 36.7 C 88 36 H 140/92 95 Laboratory Results Short CBC 04/07/21 Range/Units 06:47 WBC 20.14 H (4.8-10.8) K/uL Hgb 12.0 (12.0-16.0) g/dL Hct 37.4 (37-47) % Plt Count 533 H (130-400) K/uL BMP 04/07/21 06:47 Sodium 140 Potassium 4.3 Chloride 107 Carbon Dioxide 28 BUN 17 Creatinine 0.56 L Glucose 115 H Calcium 8.8 Medications Administered Current Inpatient Medications Acetaminophen (Acetaminophen 325 Mg Tab) 650 mg PO Q4H PRN PRN Reason: Pain or Fever Stop: 04/29/21 19:09 Alprazolam (Alprazolam 0.25 Mg Tablet) 0.25 mg PO Q8H PRN PRN Reason: severe anxiety Stop: 05/03/21 16:33 Last Admin: 04/06/21 20:37 Dose: 0.25 mg Documented by: Benzonatate (Benzonatate 100 Mg Capsule) 100 mg PO TID PRN PRN Reason: cough Stop: 04/29/21 20:59 Budesonide (Budesonide 0.5 Mg/2 Ml Vial (Pulmicort)) 0.5 mg NEB BIDR NELL Stop: 05/05/21 18:59 Last Admin: 04/07/21 07:44 Dose: 0.5 mg Documented by: Dextrose (Dextrose 50% 50 Ml Syringe) 25 - 50 ml IV UD PRN; Protocol PRN Reason: Hypoglycemia Protocol Stop: 04/29/21 19:09 Enoxaparin Sodium (Enoxaparin Inj 40 Mg/0.4 Ml Syr) 40 mg SQ Q24H NELL Stop: 04/29/21 19:59 Last Admin: 04/06/21 20:31 Dose: 40 mg Documented by: Fluticasone Propionate (Fluticasone Propionate Na Spr 16 Gm Btl) 2 sprays ALE DAILY NELL Stop: 05/02/21 16:29 Last Admin: 04/07/21 08:40 Dose: 2 sprays Documented by: Furosemide (Furosemide 40 Mg/4 Ml Vial) 40 mg IV DAILY NELL Stop: 05/08/21 08:59 Glucagon (Glucagon For Inj 1 Mg Vial) 1 mg SQ UD PRN; Protocol PRN Reason: Hypoglycemia Protocol Stop: 04/29/21 19:09 Glucose (Glucose 10 Tabs/Tube) 4 - 8 tabs PO UD PRN; Protocol PRN Reason: Hypoglycemia Protocol Stop: 04/29/21 19:09 Glucose (Glucose 40% Gel 15 Gm Tube) 15 - 30 gm PO UD PRN; Protocol PRN Reason: Hypoglycemia Protocol Stop: 04/29/21 19:09 Guaifenesin/Codeine Phosphate (Guaifenesin/Codeine 200mg/20mg 10ml Udc) 10 ml PO Q6H PRN PRN Reason: Cough Stop: 05/01/21 15:45 Last Admin: 04/02/21 10:10 Dose: 10 ml Documented by: Vancomycin HCl 1,250 mg/ (Sodium Chloride) 275 mls @ 200 mls/hr IV Q12H [facility] Stop: 04/16/21 01:59 Last Infusion: 04/07/21 17:48 Dose: Infused Documented by: Dexamethasone 6 mg/ Syringe 1.5 mls @ 1 mls/min IV DAILY [facility] Stop: 05/05/21 09:29 Last Admin: 04/07/21 08:36 Dose: 1 mls/min Documented by: Insulin Aspart (Insulin Aspart 100 Units/Ml 3 Ml Pen) 0 units SC ACHS [facility] Stop: 04/29/21 19:59 Last Admin: 04/07/21 17:45 Dose: 16 units Documented by: Insulin Glargine (Insulin Glargine Solostar 100 Units/Ml 3 Ml Pen) 12 units SC QAM [facility] Stop: 05/05/21 09:59 Last Admin: 04/07/21 08:38 Dose: 12 units Documented by: Insulin Human NPH (Insulin Human Nph) 10 units SC QAM [facility] Stop: 05/07/21 08:59 Last Admin: 04/07/21 08:38 Dose: 10 units Documented by: Levalbuterol HCl (Levalbuterol Tartrate 15 Gm Hfa.Aer.Ad) 2 puffs INH Q4R PRN PRN Reason: Shortness Of Breath Or Wheezing Stop: 04/30/21 12:49 Last Admin: 04/02/21 08:05 Dose: 2 puffs Documented by: Levalbuterol HCl (Levalbuterol Hcl 1.25 Mg/3 Ml Neb) 1.25 mg NEB Q4H PRN PRN Reason: Shortness Of Breath Or Wheezing Stop: 05/01/21 20:06 Last Admin: 04/01/21 21:54 Dose: 1.25 mg Documented by: Melatonin (Melatonin 3 Mg Tab) 3 mg PO HS PRN PRN Reason: insomnia Stop: 04/29/21 19:09 Metoprolol Succinate (Metoprolol Succ 25mg Ext Rel Tab) 12.5 mg PO TID [facility] Stop: 05/03/21 13:59 Last Admin: 04/07/21 14:56 Dose: 12.5 mg Documented by: Miscellaneous (Carbohydrates For Hypoglycemia ) 15 - 30 gm PO UD PRN PRN Reason: Hypoglycemia Protocol Stop: 04/29/21 19:09 Last Admin: 04/07/21 03:31 Dose: 15 gm Documented by: Miscellaneous Information (Vancomycin Consult Active) 1 ea N/A UD PRN PRN Reason: Consult Stop: 05/01/21 15:37 Miscellaneous Information (Pharmacy Glycemic Mgmt Consult) 1 ea N/A UD PRN PRN Reason: Consult Stop: 05/02/21 18:31 Nitroglycerin (Nitroglycerin 2% Ointment 30gm Tube) 0.5 inch EXT Q6H NELL Stop: 05/02/21 14:59 Last Admin: 04/07/21 14:56 Dose: 0.5 inch Documented by: Phenol (Chloraseptic 1.4% Soln 180 Ml Btl) 1 sprays MT Q6H PRN PRN Reason: Sore Throat Stop: 05/05/21 20:58 Sertraline HCl (Sertraline Hcl 50 Mg Tablet) 25 mg PO QAM [facility] Stop: 05/08/21 08:59 Valacyclovir HCl (Valacyclovir Hcl 500 Mg Tablet) 1,000 mg PO TID [facility] Stop: 04/08/21 20:59 Last Admin: 04/07/21 14:56 Dose: 1,000 mg Documented by:
[2021-04-07] MEDS: ENOXAPARIN INJ 40 MG/0.4 ML SYR SQ SCH (21:36)
[2021-04-08] MEDS: VANCOMYCIN HCL 1,250 MG in SODIUM CHLORIDE 0.9% 250 ML IV SCH ×2 (02:00→13:30)
[2021-04-08] MEDS: NITROGLYCERIN 2% OINTMENT 30GM TUBE EXT SCH ×4 (04:11→21:00)
[2021-04-08 06:37] LABS: Hematocrit (blood only) 36.5 % (37-47); Hemoglobin 11.5 g/dL (12.0-16.0); Mean Corpuscular Hemoglobin 29.4 pg (25-34); Mean Corpuscular Hgb Conc 31.5 g/dL (32-36); Mean Corpuscular Volume 93.4 fL (80-100); Mean Platelet Volume 10.3 fL (7.4-10.4); Platelet Count 475 K/uL (130-400); RDW Coefficient of Variation 14.8 % (11.5-14.5); RDW Standard Deviation 50.3 fL (36.4-46.3); Red Blood Count 3.91 M/uL (4.2-5.4); White Blood Count 16.82 K/uL (4.8-10.8)
[2021-04-08 07:06] LABS: BUN Creatinine Ratio 31.1 (10-20); C Reactive Protein 4.26 mg/dl (0-0.29); Calcium 8.3 mg/dl (8.5-10.1); Creatinine Clr Calc Pharmacy 116.6 ml/min; Est GFR (African American) 113.4 ml/min; Est GFR (Non-African American) 97.8 ml/min
[2021-04-08] MEDS: BUDESONIDE 0.5 MG/2 ML VIAL (PULMICORT) NEB SCH ×2 (07:26→21:25)
[2021-04-08 08:16] LABS: Magnesium 2.2 mg/dl (1.8-2.4)
[2021-04-08] MEDS ORDERED: FUROSEMIDE 40 MG in SYRINGE 0 ML IV SCH (09:00)
[2021-04-08] MEDS ORDERED: INSULIN HUMAN NPH SC SCH (09:00)
--- NOTE | 2021-04-08 09:15 | Pulmonology Progress Note ---
Date of Service April 08, 2021 Assessment & Plan (1) Acute on chronic respiratory failure with hypoxia: (2) History of COVID-19: (3) Pneumomediastinum: (4) Pericardial effusion: Plan: Impression: 65-year-old female with Covid pneumonia and hypoxemia and pneumome diastinum. No progression of her pneumomediastinum or development of any pneumothorax. Unfortunately she appears clinically stagnant Recommendations: 1. Late-phase ARDS: Attempted to treat the patient with higher doses of steroids however these may have aggravated her anxiety and she has been decreased down to dexamethasone 6 mg a day. Unclear if there is benefit to steroids as she was originally treated at [facility] 03/05/2021 to 03/25/2021 for Covid pneumonia. She had completed courses of dexamethasone and remdesivir during that period. Would continue supportive care at this time. Continue to attempt to titrate supplemental oxygen to get her off of high flow. 2. Pneumomediastinum: Suspect this is due to the Silver effect. Clinically and radiographically stable over the last several days. Most recent chest x- rays 04/04/2021. No indication for follow-up imaging currently. 3. Continue to wean oxygen as tolerated. Maintain minimum oxygen saturation of 88%. Continue out of bed to chair as tolerated. Ambulate as tolerated. 4. Given the fibrotic peripheral nature of the patient's lung disease on CT scan, no role for proning or positional therapy. 5. Serial procalcitonin and BNP levels were normal. Secondary infection or atypical pulmonary edema unlikely. She is not getting much better but is not showing clinical deterioration. Continue supportive care. Continue to monitor for any changes. Not much to add at this point. Admission and Anticipated Discharge Date Admission Date: March 30, 2021 Subjective Patient states she had a relatively good night. She slept reasonably well. Her oxygen was escalated down to a rigid while at 15 L/min but this morning she is having a bowel movement with oxygen saturations in the 70% range. She denies cough chest pain or palpitations. No difficulty swallowing. No voice changes. Review of Systems Review of Systems: All systems reviewed & are unremarkable except as noted in Subjective Physical Exam Constitutional: WD/WN, vitals as above Neck: trachea midline, no thyromegaly Respiratory: normal respiratory effort; no respiratory distress and no labored breathing Auscultation: + rales Diminished breath sounds throughout without wheezing Cardiovascular: RRR, no murmur, no edema Gastrointestinal (Abdomen): normal bowel sounds, soft, nontender, no hepatosplenomegaly Musculoskeletal: Extremities: extremities normal to inspection Skin: no rashes, warm and dry Neurologic: Nonfocal exam Lymphatic: no cervical lymphadenopathy Results & Data Results & Data ([facility]) Vital Signs (Past 12 Hours) Vital Signs Temp Pulse Resp BP Pulse Ox 04/08/21 07:40 37.1 C 85 20 138/84 93 04/08/21 07:26 87 20 93 04/08/21 04:00 36.4 C L 85 20 134/68 95 04/07/21 23:29 37.0 C 83 21 128/93 90 Laboratory Results 04/08/21 05:35 04/08/21 07:32 Diagnostic Findings No new imaging PG Care Time/CCT Total # of Minutes Spent Total Time Spent with Patient: Total time spent is greater than 50% in coordination of care (as documented) at patient's floor/unit and/or counseling patient: Coding Level of Care Code 85712 Subseq Hosp Care Lvl 2 Diagnoses Acute on chronic respiratory failure with hypoxia J96.21 History of COVID-19 Z86.16 Pneumomediastinum J98.2 Pericardial effusion I31.3
[2021-04-08] MEDS: dexAMETHasone 6 MG in SYRINGE 0 ML IV SCH (09:17)
[2021-04-08] MEDS: METOPROLOL SUCC 25MG EXT REL TAB PO SCH ×3 (09:18→21:00)
[2021-04-08] MEDS: valACYclovir HCL 500 MG TABLET PO SCH ×2 (09:19→13:34)
[2021-04-08] MEDS: INSULIN ASPART 100 UNITS/ML 3 ML PEN SC SCH ×5 (09:21→21:00)
[2021-04-08] MEDS: INSULIN GLARGINE SOLOSTAR 100 UNITS/ML 3 ML PEN SC SCH (09:22)
[2021-04-08] MEDS: FUROSEMIDE 40 MG/4 ML VIAL IV SCH (09:37)
[2021-04-08] MEDS: SERTRALINE HCL 50 MG TABLET PO SCH (09:42)
[2021-04-08] MEDS: FLUTICASONE PROPIONATE NA SPR 16 GM BTL NAE SCH (09:43)
[2021-04-08] MEDS: ALPRAZolam 0.25 MG TABLET PO PRN (13:34)
--- NOTE | 2021-04-08 16:41 | Hospitalist Progress Note ---
Date of Service April 08, 2021 Assessment & Plan (1) Acute on chronic respiratory failure with hypoxia: (2) Gram-positive bacteremia: (3) Anxiety: Plan: 65-year-old female with PMH of asthma, DM, CHF, GERD, and recent ED 03/05 visit for Covid [03/05-03/25] who had fairly stayed stable on 4 to 5 L oxygen for many days prior to discharge presented again to our ED 03/30 with worsening shortness of breath. Patient had completed courses of dexamethasone and remdesivir in her prior admission and was discharged in stable condition on 4 L continuous nasal cannula oxygen. Patient is being managed for the following: #. Acute on chronic respiratory failure with hypoxia: #. History of COVID-19: #. Late phase ARDS: #. Pneumomediastinum - resolved per CXR 04/03 and 04/04 #. Bacteremia: -Patient presenting from home with reports of worsening shortness of breath. Recently admitted to [facility] 03/05 - 03/25 for hypoxic respiratory failure due to COVID 19 pneumonia. Completed courses of dexamethasone and remdesivir while admitted. Discharged on 4L O2 continuous. -On presentation to ED, patient in resp distress and was placed on CPAP however did not tolerate and was placed on [place] 40L 90% FiO2 - has had much improvement afterwards. -Admitting CTA negative for large PE however shows worsening consolidation and pneumomediastinum. -Procalcitonin negative, CRP 5.50 at presentation -Admitting WBC elevated, trending down -Chest imaging shows severe and constant bilateral pulmonary opacities -Pulmonology on board: Per Pulm, she has fibrotic changes in the CT scan --> hence proning would not be beneficial at this point. On Steroid for late phase ARDS (iv and INH). No indication to f/u on pneumomediastinum, resolved per 04/03 CXR. -03/30 blood culture positive for coagulase-negative staph [not lugdunensis] resistance to oxacillin/multidrug resistance -TTE on admission:-No evidence of vegetation. Patient had been afebrile. Source unknown but she did have an open skin wound related to her shingles rash on her buttock. -Repeat blood culture 04/02 -ve for any growth. -c/w vancomycin 04/02 -Awaiting ID recommendation -Treatment options limited at this point - continue supportive care with O2 supplementation, nebs, flutter valve, IS #. Pulmonary hypertension: #. Pericardial effusion 04/01 echo showing EF greater than 70% with grade 1 diastolic dysfunction. RV systolic pressure severely elevated at greater than 60 mmHg. Small loculated pericardial effusion, may suggest increased chronicity/stability. No tamponade physiology on echo. #. Anxiety: Clearly having difficulty coping with the situation at this point, patient has been counseled multiple times during the hospital stay. Continue with Xanax as needed, patient started on sertraline 04/07 -plan to increase to 50 mg in few days. Upon discharge, will need reevaluation by her PCP. #. Herpes Zoster: on b/l glutes. Completed valtrex x7d on 04/08. #. Diabetes: -hgb a1c 12.4 02/2021 -Lantus/Novolog #. Hypertension Fairly under control, continue current medications. #. DVT prophylaxis: -SQ Lovenox Disposition: continue PCU. Admission and Anticipated Discharge Date Admission Date: March 30, 2021 Subjective Patient was lying in bed, on 45 L high flow oxygen, NAD but anxious looking, no acute events overnight. Patient reports feeling weak and tired. Per RN, patient dropped SaO2 in 70s and was put on high flow nasal cannula oxygen. Patient was saturating 91% on 45 L at baseline. Patient denies any chest pain/palpitations/diarrhea/other review of symptoms. Patient is eating and moving bowels okay. Physical Exam Physical Exam: GENERAL: Alert and oriented x3. NAD, on 45 L. HEENT: No pallor, no icterus. Pupils equal, round and reactive to light. Oral mucosa moist. NECK: No JVD, no neck masses. HEART: S1 and S2 heard. Regular rate and rhythm. Tachycardic. No murmur, no gallop. RESPIRATORY SYSTEM: Normal AP diameter. No accessory muscle use. No wheezing, no crackles. Diminished breath sounds, no crackles appreciated. ABDOMEN: Soft, bowel sounds present, nontender, no distention. CENTRAL NERVOUS SYSTEM: Alert and oriented x3. No facial droop. Speech is clear. Obeys simple commands. Moves extremities. EXTREMITIES: No edema, no erythema seen. Results & Data Results & Data ([facility]) Vital Signs (Past 12 Hours) Vital Signs Temp Pulse Pulse Resp BP Pulse Ox 10/20/21 15:24 36.8 C 89 21 132/76 94 04/08/21 14:47 78 20 93 04/08/21 11:59 37.0 C 93 H 18 126/78 91 04/08/21 10:00 92 H 22 90 04/08/21 08:00 100 H 04/08/21 07:40 37.1 C 85 20 138/84 93 04/08/21 07:26 87 20 93
[2021-04-08] MEDS: ENOXAPARIN INJ 40 MG/0.4 ML SYR SQ SCH (20:58)
[2021-04-09] MEDS: VANCOMYCIN HCL 1,250 MG in SODIUM CHLORIDE 0.9% 250 ML IV SCH ×2 (02:07→15:15)
[2021-04-09] MEDS: NITROGLYCERIN 2% OINTMENT 30GM TUBE EXT SCH ×2 (03:55→12:10)
[2021-04-09 06:41] LABS: Hematocrit (blood only) 29.1 % (37-47); Hemoglobin 9.3 g/dL (12.0-16.0); Mean Corpuscular Hemoglobin 29.7 pg (25-34); Mean Platelet Volume 9.9 fL (7.4-10.4); Platelet Count 293 K/uL (130-400); RDW Coefficient of Variation 14.9 % (11.5-14.5); RDW Standard Deviation 49.9 fL (36.4-46.3); Red Blood Count 3.13 M/uL (4.2-5.4); White Blood Count 15.24 K/uL (4.8-10.8)
[2021-04-09 07:03] LABS: BUN Creatinine Ratio 43.6 (10-20); Calcium 8.3 mg/dl (8.5-10.1); Creatinine Clr Calc Pharmacy 142.9 ml/min; Est GFR (Non-African American) 104.4 ml/min; Potassium 4.4 mmol/L (3.5-5.1)
[2021-04-09] MEDS: BUDESONIDE 0.5 MG/2 ML VIAL (PULMICORT) NEB SCH ×2 (07:19→19:48)
[2021-04-09] MEDS: METOPROLOL SUCC 25MG EXT REL TAB PO SCH ×3 (08:25→20:28)
[2021-04-09] MEDS: dexAMETHasone 6 MG in SYRINGE 0 ML IV SCH (08:26)
[2021-04-09] MEDS: FLUTICASONE PROPIONATE NA SPR 16 GM BTL NAE SCH (08:30)
[2021-04-09] MEDS: SERTRALINE HCL 50 MG TABLET PO SCH (08:31)
[2021-04-09] MEDS ORDERED: INSULIN HUMAN NPH SC SCH (09:00)
[2021-04-09] MEDS: INSULIN ASPART 100 UNITS/ML 3 ML PEN SC SCH ×5 (09:48→20:29)
[2021-04-09] MEDS: INSULIN GLARGINE SOLOSTAR 100 UNITS/ML 3 ML PEN SC SCH (11:31)
[2021-04-09] MEDS: FUROSEMIDE 40 MG/4 ML VIAL IV SCH (12:10)
--- NOTE | 2021-04-09 14:31 | Pulmonology Progress Note ---
Date of Service April 09, 2021 Assessment & Plan (1) Acute on chronic respiratory failure with hypoxia: (2) History of COVID-19: (3) Pneumomediastinum: (4) Pericardial effusion: Plan: Impression: 65-year-old female with Covid pneumonia and hypoxemia and pneumome diastinum. No progression of her pneumomediastinum or development of any pneumothorax. Unfortunately she appears slightly worse clinically and is requiring higher volumes of supplemental oxygen. Recommendations: 1. Late-phase ARDS: Attempted to treat the patient with higher doses of steroids however these may have aggravated her anxiety and she has been decreased down to dexamethasone 6 mg a day. Unclear if there is benefit to steroids as she was originally treated at [facility] 03/05/2021 to 03/25/2021 for Covid pneumonia. She had completed courses of dexamethasone and remdesivir during that period. Would continue supportive care at this time. Continue to attempt to titrate supplemental oxygen to get her off of high flow. Recommend out of bed to chair as tolerated. 2. Pneumomediastinum: Suspect this is due to the Silver effect. Clinically and radiographically stable over the last several days. Most recent chest x- rays 04/04/2021. No indication for follow-up imaging currently. 3. Continue to wean oxygen as tolerated. Maintain minimum oxygen saturation of 88%. Continue out of bed to chair as tolerated. Ambulate as tolerated. Increase use of incentive spirometry 4. Given the fibrotic peripheral nature of the patient's lung disease on CT scan, no role for proning or positional therapy. 5. Serial procalcitonin and BNP levels were normal. Secondary infection or aty pical pulmonary edema unlikely. The patient seems to be not making much progress. We will continue to diurese as tolerated to maintain a negative fluid balance. Continue to titrate supplemental oxygen as tolerated. Patient has significant questions about prognosis. I indicated to her that she need to continue to work with incentive spirometry and recruitment. Also suggested that she get out of bed to chair as every time I have seen her she has been in bed. Continue to monitor and encourage. Admission and Anticipated Discharge Date Admission Date: March 30, 2021 Subjective Attending: Dr. Kicthen Patient is requiring additional supplemental oxygen today. She currently is on an FiO2 of 80% with a flow rate of 50 L. She continues to have shortness of breath. She is not febrile any longer. She has no significant cough any longer. She does have some use of accessory muscles. She denies any diarrhea. She had no chest pain or tightness. She denies cough or sputum production. She states that she gets short of breath just moving from the bed to the chair. No other acute complaints. Review of Systems Review of Systems: All systems reviewed & are unremarkable except as noted in Subjective Physical Exam Physical Exam: GENERAL : Minor distress. Use of accessory muscles with breathing EYES: No icterus, gaze conjugate NOSE: No evidence of epistaxis. High flow nasal cannula in place MOUTH: No lesions or candidiasis. Mucosa moist NECK: Supple LUNGS: Bibasilar crackles. No bronchospasm. HEART: Regular, rate controlled in the 80s ABDOMEN: Soft, NT, ND, BS Present EXTREMITIES: Trace bilateral LE edema, pedal pulses intact and equal bilaterally NEURO: A&OX3. Emotional Results & Data Results & Data ([facility]) Vital Signs (Past 12 Hours) Vital Signs Temp Pulse Pulse Resp BP Pulse Ox 04/09/21 11:59 36.5 C 87 24 151/97 H 94 04/09/21 10:53 74 27 H 91 04/09/21 08:09 36.7 C 78 24 161/91 H 89 L 04/09/21 07:19 74 23 93 04/09/21 03:48 36.9 C 84 20 131/88 94 04/09/21 03:33 84 20 94 Laboratory Results 04/09/21 06:18 04/09/21 06:18 Diagnostic Findings No further diagnostic imaging PG Care Time/CCT Total # of Minutes Spent Total Time Spent with Patient: Total time spent is greater than 50% in coordination of care (as documented) at patient's floor/unit and/or counseling patient: 20 minutes Coding Level of Care Code 96436 Subseq Hosp Care Lvl 2 Diagnoses Acute on chronic respiratory failure with hypoxia J96.21 History of COVID-19 Z86.16 Pneumomediastinum J98.2 Pericardial effusion I31.3 Time Spent (min) 20
--- NOTE | 2021-04-09 14:38 | Pharmacy Report ---
Pharmacy Glycemic Short Note 2 - Date of Service April 09, 2021 - Glycemic Short BSG Results (Last 24 hours): 04/08/21 04/08/21 04/08/21 16:47 20:36 20:37 Glucose POC Glucose 239 H 264 H 269 H 04/09/21 04/09/21 04/09/21 01:16 01:32 03:58 Glucose POC Glucose 56 L* 82 141 H 04/09/21 04/09/21 04/09/21 06:18 08:07 12:02 Glucose 85 POC Glucose 81 205 H OUTPATIENT ANTIDIABETIC REGIMEN: * novolin 70/30 30qAM and 15 PM * A1c 12.4% 03/05/21 ASSESSMENT: 04/09/21 * Pt's BSGs yesterday were [phone] mg/dL. Patient did have a hypoglycemic even around 1am. This may be due to the higher dose of novolog needed at 2100. Will increase NPH again today to cover later day hyperglycemia. Will loosen scale for evening check to prevent another low. Of note a CR of 15 was used for breakfast and lunch today instead of 3, but the remaining dose was supplemented at lunchtime. * Patient continues on IV steroids and is tolerating a diet. 04/07/21 * Pt hypoglycemic again this morning at 63. Will discontinue evening Lantus and initiate NPH this morning as patient has trended up significantly at dinner and HS. * Dex 6mg IV daily continues and is tolerating a diet 04/06/21 * Fasting this morning trending down 60/81 mg/dL, will decrease evening lantus dose * Dexamethasone continues at 6 mg daily * BSGs did trend up yesterday afternoon, will keep current parameters, adjust tomorrow if trend continues. 04/05/21 * Patient's BSGs yesterday were [phone] mg/dL. * Patient received 66 units of insulin (34 units of basal and 32 units of bolus). * Fasting BSG today was 103 mg/dL. * Patient's dexamethasone decreased from 20 mg daily to 6 mg daily starting today. * Decrease Lantus by 30% to 24 units daily since steroids are decrease significantly. Concern that basal dosing is aggressive because current insulin split is 50/50 with steroids. It is more desirable to have a bolus heavy regimen with steroids. Lower dose available tomorrow for BSG < 120 mg/dL. * Loosen CF as patient's BSGs trend downwards significant when out of range. * Will not tighten CR as patient's hyperglycemic event last night was due to dinner Novolog given @ 1830 and HS check at 2029. Background * Patient currently on high dose steroids, dexamethasone 20 mg IV (day 4/5), and will taper down to 10 mg on 04/05 * BSGs elevated likely d/t steroid, patient received 118 units of insulin yesterday, 46 of which were basal * Novolog parameters and lantus increased yesterday, BSGs have trended down with these changes, will continue same for now * Consider adding NPH with dexamethasone if BSGs continue to be elevated, held off for today as patient trended down overnight and BSGs have been acceptable so far today (all <180 mg/dL) PLAN FOR INPATIENT GLYCEMIC CONTROL: * Hold outpatient oral diabetes medications * Basal insulin * Lantus 10 units SQ qam * NPH 15 units qam with dex * Bolus insulin * NovoLog per scale ACHS or Q6hrs while NPO * Goal Range: Low 110 mg/dL - High 140 mg/dL * Correction Factor: 15 mg/dL/unit (25 mg/dL/unit at HS) * Nutritional / Prandial insulin per carb ratio of 1 unit per 3 grams CHO consumed (1 units per 6 grams CHO consumed at HS) Discharge Recommendations * Patient's HbA1C is above goal range (currently goal would be <8% while current HbA1C is 12.4%) * Patient's outpatient regimen JUST started after last admission so has not had time to be evaluated yet. * Please resume outpatient regimen and re-evaluate in 1 month's time.
[2021-04-09] MEDS: ALPRAZolam 0.25 MG TABLET PO PRN (16:01)
--- NOTE | 2021-04-09 16:25 | Hospitalist Progress Note ---
Date of Service April 09, 2021 Assessment & Plan (1) Acute on chronic respiratory failure with hypoxia: (2) Gram-positive bacteremia: (3) Anxiety: Plan: 65-year-old female with PMH of asthma, DM, CHF, GERD, and recent ED 03/05 visit for Covid [03/05-03/25] who had fairly stayed stable on 4 to 5 L oxygen for many days prior to discharge presented again to our ED 03/30 with worsening shortness of breath. Patient had completed courses of dexamethasone and remdesivir in her prior admission and was discharged in stable condition on 4 L continuous nasal cannula oxygen. Patient is being managed for the following: #. Acute on chronic respiratory failure with hypoxia: #. History of COVID-19: #. Late phase ARDS: #. Pneumomediastinum - resolved per CXR 04/03 and 04/04 #. Bacteremia: -Patient presenting from home with reports of worsening shortness of breath. Recently admitted to [facility] 03/05 - 03/25 for hypoxic respiratory failure due to COVID 19 pneumonia. Completed courses of dexamethasone and remdesivir while admitted. Discharged on 4L O2 continuous. -On presentation to ED, patient in resp distress and was placed on CPAP however did not tolerate and was placed on [place] 40L 90% FiO2 - has had much improvement afterwards. -Admitting CTA negative for large PE however shows worsening consolidation and pneumomediastinum. -Procalcitonin negative, CRP 5.50 at presentation -Admitting WBC elevated, trending down -Chest imaging shows severe and constant bilateral pulmonary opacities -Pulmonology on board: Per Pulm, she has fibrotic changes in the CT scan --> hence proning would not be beneficial at this point. On Steroid for late phase ARDS (iv and INH). No indication to f/u on pneumomediastinum, resolved per 04/03 CXR. -03/30 blood culture positive for coagulase-negative staph [not lugdunensis] resistance to oxacillin/multidrug resistance -TTE on admission:-No evidence of vegetation. Patient had been afebrile. Source unknown but she did have an open skin wound related to her shingles rash on her buttock. -Repeat blood culture 04/02 -ve for any growth. -c/w vancomycin 04/02 -Awaiting ID recommendation -Discussed with pulmonology, she has poor prognosis with regard to her lung condition. -Treatment options limited at this point - continue supportive care with O2 supplementation, nebs, flutter valve, IS #. Pulmonary hypertension: #. Pericardial effusion 04/01 echo showing EF greater than 70% with grade 1 diastolic dysfunction. RV systolic pressure severely elevated at greater than 60 mmHg. Small loculated pericardial effusion, may suggest increased chronicity/stability. No tamponade physiology on echo. #. Anxiety: Clearly having difficulty coping with the situation at this point, patient has been counseled multiple times during the hospital stay. Continue with Xanax as needed, patient started on sertraline 04/07 - increase to 50 mg 04/10 Upon discharge, will need reevaluation by her PCP. #. Herpes Zoster: on b/l glutes. Completed valtrex x7d on 04/08. #. Diabetes: -hgb a1c 12.4 02/2021 -Lantus/Novolog #. Hypertension Fairly under control, continue current medications. #. DVT prophylaxis: -SQ Lovenox Disposition: continue PCU. Admission and Anticipated Discharge Date Admission Date: March 30, 2021 Subjective Patient was lying in bed, on 50 L nasal cannula oxygen, did not appear to be in distress, no acute events overnight. Patient is requiring more oxygen than yesterday. Patient has been stagnant with regard to her pulmonary condition improvement. Patient reports feeling tired and weak. Patient denies headache/dizziness/increased shortness of breath/other review of symptoms. Physical Exam Physical Exam: GENERAL: Alert and oriented x3. NAD, on 50 L. HEENT: No pallor, no icterus. Pupils equal, round and reactive to light. Oral mucosa moist. NECK: No JVD, no neck masses. HEART: S1 and S2 heard. Regular rate and rhythm. Tachycardic. No murmur, no gallop. RESPIRATORY SYSTEM: Normal AP diameter. No accessory muscle use. No wheezing. Diminished breath sounds, no crackles appreciated. ABDOMEN: Soft, bowel sounds present, nontender, no distention. CENTRAL NERVOUS SYSTEM: No facial droop. Speech is clear. Obeys simple commands. Moves extremities. EXTREMITIES: No edema, no erythema seen. Results & Data Results & Data ([facility]) Vital Signs (Past 12 Hours) Vital Signs Temp Pulse Resp BP Pulse Ox 04/09/21 15:54 36.7 C 71 17 146/92 H 92 04/09/21 15:28 69 25 H 93 04/09/21 11:59 36.5 C 87 24 151/97 H 94 04/09/21 10:53 74 27 H 91 04/09/21 08:09 36.7 C 78 24 161/91 H 89 L 04/09/21 07:19 74 23 93
[2021-04-09 17:10] LABS: Hematocrit (blood only) 38.7 % (37-47); Hemoglobin 12.5 g/dL (12.0-16.0)
[2021-04-09] MEDS: ENOXAPARIN INJ 40 MG/0.4 ML SYR SQ SCH (20:28)
[2021-04-10] MEDS: VANCOMYCIN HCL 1,250 MG in SODIUM CHLORIDE 0.9% 250 ML IV SCH ×2 (03:07→14:44)
[2021-04-10] MEDS ORDERED: ALBUMIN 25% 12.5 GM/50 ML VIAL IV ONE (05:45)
[2021-04-10 07:07] LABS: Hematocrit (blood only) 37.9 % (37-47); Hemoglobin 12.1 g/dL (12.0-16.0); Mean Corpuscular Hemoglobin 29.6 pg (25-34); Mean Corpuscular Hgb Conc 31.9 g/dL (32-36); Mean Corpuscular Volume 92.7 fL (80-100); Mean Platelet Volume 10.2 fL (7.4-10.4); Platelet Count 487 K/uL (130-400); RDW Coefficient of Variation 14.9 % (11.5-14.5); Red Blood Count 4.09 M/uL (4.2-5.4); White Blood Count 20.08 K/uL (4.8-10.8)
[2021-04-10] MEDS: BUDESONIDE 0.5 MG/2 ML VIAL (PULMICORT) NEB SCH ×2 (07:23→19:51)
[2021-04-10 07:52] LABS: BUN Creatinine Ratio 37.8 (10-20); Calcium 8.6 mg/dl (8.5-10.1); Creatinine Clr Calc Pharmacy 112.3 ml/min; Est GFR (African American) 112.1 ml/min; Est GFR (Non-African American) 96.7 ml/min; Potassium 3.8 mmol/L (3.5-5.1)
[2021-04-10] MEDS: dexAMETHasone 6 MG in SYRINGE 0 ML IV SCH (08:07)
[2021-04-10] MEDS: FLUTICASONE PROPIONATE NA SPR 16 GM BTL NAE SCH (08:08)
[2021-04-10] MEDS: METOPROLOL SUCC 25MG EXT REL TAB PO SCH ×3 (08:09→21:04)
[2021-04-10] MEDS: SERTRALINE HCL 50 MG TABLET PO SCH (08:09)
[2021-04-10] MEDS: ISOSORBIDE MONO EXTENDED REL 60 MG TABCR PO SCH (08:09)
[2021-04-10] MEDS: INSULIN ASPART 100 UNITS/ML 3 ML PEN SC SCH ×4 (08:12→20:52)
[2021-04-10] MEDS: INSULIN GLARGINE SOLOSTAR 100 UNITS/ML 3 ML PEN SC SCH (08:14)
[2021-04-10] MEDS: INSULIN HUMAN NPH SC SCH (08:15)
--- NOTE | 2021-04-10 11:34 | Pharmacy Report ---
Pharmacy Glycemic Short Note 2 - Date of Service April 10, 2021 - Glycemic Short BSG Results (Last 24 hours): 04/09/21 04/09/21 04/09/21 12:02 16:20 20:24 Glucose POC Glucose 205 H 190 H 241 H 04/10/21 04/10/21 04/10/21 06:09 07:44 11:11 Glucose 90 POC Glucose 121 H 137 H OUTPATIENT ANTIDIABETIC REGIMEN: * novolin 70/30 30qAM and 15 PM * A1c 12.4% 03/05/21 ASSESSMENT: 04/10/21: * Pt received total of 73 units of insulin yesterday; 25 units basal (10 units Lantus + 15 units NPH) and 48 units bolus. * Fasting BSG today was 90 mg/dl. Continued Lantus the same as yesterday. * Post prandial BSGs were elevated yesterday with HS BSG above 200 mg/dl most likely d/t the IV steroid. NPH dose today AM was increased slightly. * Novolog parameters continued the same as yesterday. 04/09/21 * Pt's BSGs yesterday were [phone] mg/dL. Patient did have a hypoglycemic even around 1am. This may be due to the higher dose of novolog needed at 2100. Will increase NPH again today to cover later day hyperglycemia. Will loosen scale for evening check to prevent another low. Of note a CR of 15 was used for breakfast and lunch today instead of 3, but the remaining dose was supplemented at lunchtime. * Patient continues on IV steroids and is tolerating a diet. 04/07/21 * Pt hypoglycemic again this morning at 63. Will discontinue evening Lantus and initiate NPH this morning as patient has trended up significantly at dinner and HS. * Dex 6mg IV daily continues and is tolerating a diet 04/06/21 * Fasting this morning trending down 60/81 mg/dL, will decrease evening lantus dose * Dexamethasone continues at 6 mg daily * BSGs did trend up yesterday afternoon, will keep current parameters, adjust tomorrow if trend continues. 04/05/21 * Patient's BSGs yesterday were [phone] mg/dL. * Patient received 66 units of insulin (34 units of basal and 32 units of bolus). * Fasting BSG today was 103 mg/dL. * Patient's dexamethasone decreased from 20 mg daily to 6 mg daily starting today. * Decrease Lantus by 30% to 24 units daily since steroids are decrease significantly. Concern that basal dosing is aggressive because current insulin split is 50/50 with steroids. It is more desirable to have a bolus heavy regimen with steroids. Lower dose available tomorrow for BSG < 120 mg/dL. * Loosen CF as patient's BSGs trend downwards significant when out of range. * Will not tighten CR as patient's hyperglycemic event last night was due to dinner Novolog given @ 1830 and HS check at 2029. Background * Patient currently on high dose steroids, dexamethasone 20 mg IV (day 4/5), and will taper down to 10 mg on 04/05 * BSGs elevated likely d/t steroid, patient received 118 units of insulin yesterday, 46 of which were basal * Novolog parameters and lantus increased yesterday, BSGs have trended down with these changes, will continue same for now * Consider adding NPH with dexamethasone if BSGs continue to be elevated, held off for today as patient trended down overnight and BSGs have been acceptable so far today (all <180 mg/dL) PLAN FOR INPATIENT GLYCEMIC CONTROL: * Hold outpatient oral diabetes medications * Basal insulin * Lantus 10 units SQ qam * NPH 18 units qam with dexamethasone * Bolus insulin * NovoLog per scale ACHS or Q6hrs while NPO * Goal Range: Low 110 mg/dL - High 140 mg/dL * Correction Factor: 15 mg/dL/unit (25 mg/dL/unit at HS) * Nutritional / Prandial insulin per carb ratio of 1 unit per 3 grams CHO consumed (1 units per 6 grams CHO consumed at HS) Discharge Recommendations * Patient's HbA1C is above goal range (currently goal would be <8% while current HbA1C is 12.4%) * Patient's outpatient regimen JUST started after last admission so has not had time to be evaluated yet. * Please resume outpatient regimen and re-evaluate in 1 month's time.
[2021-04-10] MEDS ORDERED: VANCOMYCIN TROUGH ONE ×2 (13:30)
--- NOTE | 2021-04-10 14:05 | Pharmacy Report ---
Pharmacy Abx Dose Short Note - Date of Service April 10, 2021 - Assessment & Plan Assessment 65 year old F receiving vancomycin for treatment of bacteremia Day # 10 of antimicrobial therapy. Plan Vancomycin * Trough level of 19 mcg/mL is therapeutic, previous dose was given ~1 hour from schedule time, trough drawn ~ 10.15 hrs from previous dose, "true" trough likely slightly lower. [employer] predicting AUC 485 with current dosing, will continue * Goal trough level 15-20 mcg/mL * Trough to be ordered in 3-4 days or with renal function changes. Pharmacy will continue to follow and will adjust dose/frequency as necessary. Thank you.
--- NOTE | 2021-04-10 15:31 | Pulmonology Progress Note ---
Date of Service April 10, 2021 Assessment & Plan (1) Acute on chronic respiratory failure with hypoxia: (2) History of COVID-19: (3) Pneumomediastinum: (4) Pericardial effusion: Plan: Impression: 65-year-old female with Covid pneumonia and hypoxemia and pneumome diastinum. No progression of her pneumomediastinum or development of any pneumothorax. Slight improvement in oxygen requriements. Recommendations: 1. Late-phase ARDS: Attempted to treat the patient with higher doses of steroids however these may have aggravated her anxiety and she has been decreased down to dexamethasone 6 mg a day. Unclear if there is benefit to steroids as she was originally treated at [facility] 03/05/2021 to 03/25/2021 for Covid pneumonia. She had completed courses of dexamethasone and remdesivir during that period. Would continue supportive care at this time. Continue to attempt to titrate supplemental oxygen to get her off of high flow. Recommend out of bed to chair as tolerated. 2. Pneumomediastinum: Suspect this is due to the Silver effect. Clinically and radiographically stable over the last several days. Most recent chest x- rays 04/04/2021. No indication for follow-up imaging currently. 3. Continue to wean oxygen as tolerated. Maintain minimum oxygen saturation of 88%. Continue out of bed to chair as tolerated. Ambulate as tolerated. Increase use of incentive spirometry 4. Given the fibrotic peripheral nature of the patient's lung disease on CT scan, no role for proning or positional therapy. 5. Serial procalcitonin and BNP levels were normal. ABX per primary service. If the patient is going to improve, suspect it may be a long protracted recover. When her oxygenation tolerates, consider PT and OT evaluations and increasing activity as tolerated. Unfortunately not much else to offer at this point. Pulmonary will sign off, please reach out with questions. Admission and Anticipated Discharge Date Admission Date: March 30, 2021 Subjective Chart reviewed. Seen from window. Transferred out of covid unit. appears comfortable. Oxygen requirements decreasing. Review of Systems Review of Systems: refer to hospitalists note. Physical Exam Physical Exam: Exam deferred. See hospitalists note. Results & Data Results & Data ([facility]) Vital Signs (Past 12 Hours) Vital Signs Temp Pulse Pulse Pulse Resp BP Pulse Ox 04/10/21 15:16 90 04/10/21 14:47 36.4 C L 95 H 22 145/76 H 94 04/10/21 11:12 36.4 C L 76 20 132/78 91 04/10/21 10:29 04/10/21 09:26 74 21 91 04/10/21 08:00 75 04/10/21 07:45 36.4 C L 79 20 139/83 87 L 04/10/21 07:24 79 19 88 L Pulse Ox 04/10/21 15:16 04/10/21 14:47 04/10/21 11:12 04/10/21 10:29 93 04/10/21 09:26 04/10/21 08:00 04/10/21 07:45 04/10/21 07:24 Laboratory Results 04/10/21 06:09 04/10/21 06:09 Diagnostic Findings no new imaging. PG Care Time/CCT Total # of Minutes Spent Total Time Spent with Patient: Total time spent is greater than 50% in coordination of care (as documented) at patient's floor/unit and/or counseling patient: Coding Level of Care Code 39336 Subseq Hosp Care Lvl 1 Diagnoses Acute on chronic respiratory failure with hypoxia J96.21 History of COVID-19 Z86.16 Pneumomediastinum J98.2 Pericardial effusion I31.3
--- NOTE | 2021-04-10 15:47 | Hospitalist Progress Note ---
Date of Service April 10, 2021 Assessment & Plan (1) Acute on chronic respiratory failure with hypoxia: (2) Gram-positive bacteremia: (3) Anxiety: Plan: 65-year-old female with PMH of asthma, DM, CHF, GERD, and recent ED 03/05 visit for Covid [03/05-03/25] who had fairly stayed stable on 4 to 5 L oxygen for many days prior to discharge presented again to our ED 03/30 with worsening shortness of breath. Patient had completed courses of dexamethasone and remdesivir in her prior admission and was discharged in stable condition on 4 L continuous nasal cannula oxygen. Patient is being managed for the following: #. Acute on chronic respiratory failure with hypoxia: #. History of COVID-19: #. Late phase ARDS: #. Pneumomediastinum - resolved per CXR 04/03 and 04/04 #. Bacteremia: -Patient presenting from home with reports of worsening shortness of breath. Recently admitted to [facility] 03/05 - 03/25 for hypoxic respiratory failure due to COVID 19 pneumonia. Completed courses of dexamethasone and remdesivir while admitted. Discharged on 4L O2 continuous. -On presentation to ED, patient in resp distress and was placed on CPAP however did not tolerate and was placed on [place] 40L 90% FiO2 - has had much improvement afterwards. -Admitting CTA negative for large PE however shows worsening consolidation and pneumomediastinum. -Procalcitonin negative, CRP 5.50 at presentation -Admitting WBC elevated, trending down -Chest imaging shows severe and constant bilateral pulmonary opacities -Pulmonology on board: Per Pulm, she has fibrotic changes in the CT scan --> hence proning would not be beneficial at this point. On Steroid for late phase ARDS (iv and INH). No indication to f/u on pneumomediastinum, resolved per 04/03 CXR. -03/30 blood culture positive for coagulase-negative staph [not lugdunensis] resistance to oxacillin/multidrug resistance -TTE on admission:-No evidence of vegetation. Patient had been afebrile. Source unknown but she did have an open skin wound related to her shingles rash on her buttock. -Repeat blood culture 04/02 -ve for any growth. -c/w vancomycin 04/02 -Awaiting ID recommendation -Discussed with pulmonology, she has poor prognosis with regard to her lung condition. -Treatment options limited at this point - continue supportive care with O2 supplementation, nebs, flutter valve, IS, OOB, PT/OT #. Pulmonary hypertension: #. Pericardial effusion 04/01 echo showing EF greater than 70% with grade 1 diastolic dysfunction. RV systolic pressure severely elevated at greater than 60 mmHg. Small loculated pericardial effusion, may suggest increased chronicity/stability. No tamponade physiology on echo. #. Anxiety: Clearly having difficulty coping with the situation at this point, patient has been counseled multiple times during the hospital stay. Continue with Xanax as needed, patient started on sertraline 04/07 - increased to 50 mg 04/10 Upon discharge, will need reevaluation by her PCP. #. Herpes Zoster: on b/l glutes. Completed valtrex x7d on 04/08. #. Diabetes: -hgb a1c 12.4 02/2021 -Lantus/Novolog #. Hypertension Fairly under control, continue current medications. #. DVT prophylaxis: -SQ Lovenox Disposition: continue PCU. Admission and Anticipated Discharge Date Admission Date: March 30, 2021 Subjective Patient was lying in bed, on 13 L nasal cannula oxygen, NAD. Patient is eating and moving bowels okay. Patient denies any headache/chills/fever/increased s of breath/other review of symptoms Physical Exam Physical Exam: GENERAL: Alert and oriented x3. NAD, on 13 L. HEENT: No pallor, no icterus. Pupils equal, round and reactive to light. Oral mucosa moist. NECK: No JVD, no neck masses. HEART: S1 and S2 heard. Regular rate and rhythm. Tachycardic. No murmur, no gallop. RESPIRATORY SYSTEM: Normal AP diameter. No accessory muscle use. No wheezing. Diminished breath sounds improving, fine crackles appreciated. ABDOMEN: Soft, bowel sounds present, nontender, no distention. CENTRAL NERVOUS SYSTEM: No facial droop. Speech is clear. Obeys simple commands. Moves extremities. EXTREMITIES: No edema, no erythema seen. Results & Data Results & Data ([facility]) Vital Signs (Past 12 Hours) Vital Signs Temp Pulse Pulse Pulse Resp BP Pulse Ox 04/10/21 15:34 97 H 04/10/21 15:16 90 04/10/21 14:47 36.4 C L 95 H 22 145/76 H 94 04/10/21 11:12 36.4 C L 76 20 132/78 91 04/10/21 10:29 04/10/21 09:26 74 21 91 04/10/21 08:00 75 04/10/21 07:45 36.4 C L 79 20 139/83 87 L 04/10/21 07:24 79 19 88 L Pulse Ox 04/10/21 15:34 04/10/21 15:16 04/10/21 14:47 04/10/21 11:12 04/10/21 10:29 93 04/10/21 09:26 04/10/21 08:00 04/10/21 07:45 04/10/21 07:24
[2021-04-10] MEDS: ENOXAPARIN INJ 40 MG/0.4 ML SYR SQ SCH (21:01)
[2021-04-10] MEDS: ALPRAZolam 0.25 MG TABLET PO PRN (21:04)
[2021-04-11] MEDS: VANCOMYCIN HCL 1,250 MG in SODIUM CHLORIDE 0.9% 250 ML IV SCH ×2 (02:00→14:34)
[2021-04-11] MEDS: ALBUMIN 25% 12.5 GM/50 ML VIAL IV SCH ×2 (07:56→09:03)
[2021-04-11] MEDS: dexAMETHasone 6 MG in SYRINGE 0 ML IV SCH (07:59)
[2021-04-11] MEDS: FLUTICASONE PROPIONATE NA SPR 16 GM BTL NAE SCH (08:07)
[2021-04-11] MEDS: METOPROLOL SUCC 25MG EXT REL TAB PO SCH ×3 (08:08→21:10)
[2021-04-11] MEDS: SERTRALINE HCL 50 MG TABLET PO SCH (08:08)
[2021-04-11] MEDS: ISOSORBIDE MONO EXTENDED REL 60 MG TABCR PO SCH (08:08)
[2021-04-11] MEDS: ALPRAZolam 0.25 MG TABLET PO PRN ×2 (08:09→21:07)
[2021-04-11 08:14] LABS: Hemoglobin 11.6 g/dL (12.0-16.0); Mean Corpuscular Hemoglobin 29.9 pg (25-34); Mean Corpuscular Hgb Conc 32.2 g/dL (32-36); Mean Corpuscular Volume 92.8 fL (80-100); Platelet Count 426 K/uL (130-400); RDW Coefficient of Variation 15.1 % (11.5-14.5); RDW Standard Deviation 50.1 fL (36.4-46.3); Red Blood Count 3.88 M/uL (4.2-5.4); White Blood Count 22.04 K/uL (4.8-10.8)
[2021-04-11] MEDS: BUDESONIDE 0.5 MG/2 ML VIAL (PULMICORT) NEB SCH ×2 (08:21→20:28)
[2021-04-11 08:45] LABS: BUN Creatinine Ratio 42.4 (10-20); Calcium 8.7 mg/dl (8.5-10.1); Creatinine Clr Calc Pharmacy 135.7 ml/min; Est GFR (African American) 119.3 ml/min; Est GFR (Non-African American) 102.9 ml/min; Potassium 3.9 mmol/L (3.5-5.1)
[2021-04-11] MEDS ORDERED: FUROSEMIDE 20 MG in SYRINGE 0 ML IV ONE (09:30)
[2021-04-11] MEDS: INSULIN GLARGINE SOLOSTAR 100 UNITS/ML 3 ML PEN SC SCH (09:59)
[2021-04-11] MEDS: INSULIN ASPART 100 UNITS/ML 3 ML PEN SC SCH ×4 (09:59→21:09)
[2021-04-11] MEDS: INSULIN HUMAN NPH SC SCH (09:59)
--- NOTE | 2021-04-11 10:21 | Pharmacy Report ---
Pharmacy Glycemic Short Note 2 - Date of Service April 11, 2021 - Glycemic Short BSG Results (Last 24 hours): 04/10/21 04/10/21 04/10/21 11:11 16:00 20:27 Glucose POC Glucose 137 H 232 H 121 H 04/11/21 04/11/21 04/11/21 03:38 07:51 08:00 Glucose 70 POC Glucose 79 69 L* OUTPATIENT ANTIDIABETIC REGIMEN: * novolin 70/30 30qAM and 15 PM * A1c 12.4% 03/05/21 ASSESSMENT: 04/11: * Pt was hypoglycemic early this AM. Fasting BSG = 69 mg/dl. * Post prandial BSGs at goal except for dinner BSG higher than 200 mg/dl yesterday. Continued basal insulin dosing the same today since pt continues to be on Dex 6 mg IV daily. * To prevent hypoglycemia in the AM, loosened HS carb ratio. Pt usually has a snack at HS. 04/10/21: * Pt received total of 73 units of insulin yesterday; 25 units basal (10 units Lantus + 15 units NPH) and 48 units bolus. * Fasting BSG today was 90 mg/dl. Continued Lantus the same as yesterday. * Post prandial BSGs were elevated yesterday with HS BSG above 200 mg/dl most likely d/t the IV steroid. NPH dose today AM was increased slightly. * Novolog parameters continued the same as yesterday. 04/09/21 * Pt's BSGs yesterday were [phone] mg/dL. Patient did have a hypoglycemic even around 1am. This may be due to the higher dose of novolog needed at 2100. Will increase NPH again today to cover later day hyperglycemia. Will loosen scale for evening check to prevent another low. Of note a CR of 15 was used for breakfast and lunch today instead of 3, but the remaining dose was supplemented at lunchtime. * Patient continues on IV steroids and is tolerating a diet. 04/07/21 * Pt hypoglycemic again this morning at 63. Will discontinue evening Lantus and initiate NPH this morning as patient has trended up significantly at dinner and HS. * Dex 6mg IV daily continues and is tolerating a diet 04/06/21 * Fasting this morning trending down 60/81 mg/dL, will decrease evening lantus dose * Dexamethasone continues at 6 mg daily * BSGs did trend up yesterday afternoon, will keep current parameters, adjust tomorrow if trend continues. 04/05/21 * Patient's BSGs yesterday were [phone] mg/dL. * Patient received 66 units of insulin (34 units of basal and 32 units of bolus). * Fasting BSG today was 103 mg/dL. * Patient's dexamethasone decreased from 20 mg daily to 6 mg daily starting today. * Decrease Lantus by 30% to 24 units daily since steroids are decrease significantly. Concern that basal dosing is aggressive because current insulin split is 50/50 with steroids. It is more desirable to have a bolus heavy regimen with steroids. Lower dose available tomorrow for BSG < 120 mg/dL. * Loosen CF as patient's BSGs trend downwards significant when out of range. * Will not tighten CR as patient's hyperglycemic event last night was due to dinner Novolog given @ 1830 and HS check at 2029. Background * Patient currently on high dose steroids, dexamethasone 20 mg IV (day 4/5), and will taper down to 10 mg on 04/05 * BSGs elevated likely d/t steroid, patient received 118 units of insulin yesterday, 46 of which were basal * Novolog parameters and lantus increased yesterday, BSGs have trended down with these changes, will continue same for now * Consider adding NPH with dexamethasone if BSGs continue to be elevated, held off for today as patient trended down overnight and BSGs have been acceptable so far today (all <180 mg/dL) PLAN FOR INPATIENT GLYCEMIC CONTROL: * Hold outpatient oral diabetes medications * Basal insulin * Lantus 10 units SQ qam * NPH 18 units qam with dexamethasone * Bolus insulin * NovoLog per scale ACHS or Q6hrs while NPO * Goal Range: Low 110 mg/dL - High 140 mg/dL * Correction Factor: 15 mg/dL/unit (25 mg/dL/unit at HS) * Nutritional / Prandial insulin per carb ratio of 1 unit per 3 grams CHO consumed (1 units per 10 grams CHO consumed at HS) Discharge Recommendations * Patient's HbA1C is above goal range (currently goal would be <8% while current HbA1C is 12.4%) * Patient's outpatient regimen JUST started after last admission so has not had time to be evaluated yet. * Please resume outpatient regimen and re-evaluate in 1 month's time.
--- NOTE | 2021-04-11 16:34 | Hospitalist Progress Note ---
Date of Service April 11, 2021 Assessment & Plan (1) Acute on chronic respiratory failure with hypoxia: (2) Gram-positive bacteremia: (3) Anxiety: Plan: 65-year-old female with PMH of asthma, DM, CHF, GERD, and recent ED 03/05 visit for Covid [03/05-03/25] who had fairly stayed stable on 4 to 5 L oxygen for many days prior to discharge presented again to our ED 03/30 with worsening shortness of breath. Patient had completed courses of dexamethasone and remdesivir in her prior admission and was discharged in stable condition on 4 L continuous nasal cannula oxygen. Patient is being managed for the following: #. Acute on chronic respiratory failure with hypoxia: #. History of COVID-19: #. Late phase ARDS: #. Pneumomediastinum - resolved per CXR 04/03 and 04/04 #. Bacteremia: -Patient presenting from home with reports of worsening shortness of breath. Recently admitted to [facility] 03/05 - 03/25 for hypoxic respiratory failure due to COVID 19 pneumonia. Completed courses of dexamethasone and remdesivir while admitted. Discharged on 4L O2 continuous. -On presentation to ED, patient in resp distress and was placed on CPAP however did not tolerate and was placed on [place] 40L 90% FiO2 - has had much improvement afterwards. -Admitting CTA negative for large PE however shows worsening consolidation and pneumomediastinum. -Procalcitonin negative, CRP 5.50 at presentation -Admitting WBC elevated, trending down -Chest imaging shows severe and constant bilateral pulmonary opacities -Pulmonology on board: Per Pulm, she has fibrotic changes in the CT scan --> hence proning would not be beneficial at this point. On Steroid for late phase ARDS (iv and INH). No indication to f/u on pneumomediastinum, resolved per 04/03 CXR. -03/30 blood culture positive for coagulase-negative staph [not lugdunensis] resistance to oxacillin/multidrug resistance -TTE on admission:-No evidence of vegetation. Patient had been afebrile. Source unknown but she did have an open skin wound related to her shingles rash on her buttock. -Repeat blood culture 04/02 -ve for any growth. -c/w vancomycin 04/02 -Awaiting ID recommendation -Discussed with pulmonology, she has poor prognosis with regard to her lung condition. -Treatment options limited at this point - continue supportive care with O2 supplementation, nebs, flutter valve, IS, OOB, PT/OT #. Pulmonary hypertension: #. Pericardial effusion 04/01 echo showing EF greater than 70% with grade 1 diastolic dysfunction. RV systolic pressure severely elevated at greater than 60 mmHg. Small loculated pericardial effusion, may suggest increased chronicity/stability. No tamponade physiology on echo. #. Anxiety: Clearly having difficulty coping with the situation at this point, patient has been counseled multiple times during the hospital stay. Continue with Xanax as needed, patient started on sertraline 04/07 - increased to 50 mg 04/10 Upon discharge, will need reevaluation by her PCP. #. Herpes Zoster: on b/l glutes. Completed valtrex x7d on 04/08. #. Diabetes: -hgb a1c 12.4 02/2021 -Lantus/Novolog #. Hypertension Fairly under control, continue current medications. #. DVT prophylaxis: -SQ Lovenox Disposition: continue PCU. Admission and Anticipated Discharge Date Admission Date: March 30, 2021 Subjective Patient was lying in bed, on 12L nasal cannula oxygen, NAD. Patient is eating and moving bowels okay. Pt reports feeling tired. Patient denies any headache/chills/fever/increased s of breath/other review of symptoms Physical Exam Physical Exam: GENERAL: Alert and oriented x3. NAD, on 12 L. HEENT: No pallor, no icterus. Pupils equal, round and reactive to light. Oral mucosa moist. NECK: No JVD, no neck masses. HEART: S1 and S2 heard. Regular rate and rhythm. Tachycardic. No murmur, no gallop. RESPIRATORY SYSTEM: Normal AP diameter. No accessory muscle use. No wheezing. Diminished breath sounds improving, fine crackles appreciated. ABDOMEN: Soft, bowel sounds present, nontender, no distention. CENTRAL NERVOUS SYSTEM: No facial droop. Speech is clear. Obeys simple commands. Moves extremities. EXTREMITIES: No edema, no erythema seen. Results & Data Results & Data ([facility]) Vital Signs (Past 12 Hours) Vital Signs Temp Pulse Pulse Pulse Resp BP BP 04/11/21 16:00 91 H 04/11/21 15:30 37.4 C 86 23 117/66 04/11/21 11:54 36.5 C 75 22 108/67 04/11/21 08:22 80 20 04/11/21 08:05 36.4 C L 81 28 H 147/79 H 04/11/21 08:00 70 Pulse Ox 04/11/21 16:00 04/11/21 15:30 93 04/11/21 11:54 96 04/11/21 08:22 91 04/11/21 08:05 91 04/11/21 08:00
[2021-04-11] MEDS ORDERED: POLYETHYLENE (MIRALAX) 17 GM PACK PO PRN (19:54)
[2021-04-11] MEDS: DOCUSATE SODIUM/SENNA 50/8.6MG TAB PO SCH (21:07)
[2021-04-11] MEDS: ENOXAPARIN INJ 40 MG/0.4 ML SYR SQ SCH (21:10)
[2021-04-12] MEDS: CARBOHYDRATES FOR HYPOGLYCEMIA PO PRN (01:30)
[2021-04-12] MEDS: VANCOMYCIN HCL 1,250 MG in SODIUM CHLORIDE 0.9% 250 ML IV SCH ×2 (01:46→14:07)
[2021-04-12 05:53] LABS: Hematocrit (blood only) 33.6 % (37-47); Hemoglobin 10.8 g/dL (12.0-16.0); Mean Corpuscular Hemoglobin 29.6 pg (25-34); Mean Corpuscular Hgb Conc 32.1 g/dL (32-36); Mean Corpuscular Volume 92.1 fL (80-100); Mean Platelet Volume 9.8 fL (7.4-10.4); Platelet Count 421 K/uL (130-400); RDW Coefficient of Variation 15.3 % (11.5-14.5); RDW Standard Deviation 50.7 fL (36.4-46.3); Red Blood Count 3.65 M/uL (4.2-5.4); White Blood Count 19.64 K/uL (4.8-10.8)
[2021-04-12 06:20] LABS: BUN Creatinine Ratio 37.8 (10-20); Calcium 8.5 mg/dl (8.5-10.1); Creatinine Clr Calc Pharmacy 125.2 ml/min; Est GFR (African American) 116.2 ml/min; Est GFR (Non-African American) 100.3 ml/min; Potassium 4.1 mmol/L (3.5-5.1)
[2021-04-12] MEDS: BUDESONIDE 0.5 MG/2 ML VIAL (PULMICORT) NEB SCH ×2 (07:23→19:57)
[2021-04-12] MEDS: ALPRAZolam 0.25 MG TABLET PO PRN ×2 (07:55→20:56)
[2021-04-12] MEDS: METOPROLOL SUCC 25MG EXT REL TAB PO SCH ×3 (08:33→20:50)
[2021-04-12] MEDS: SERTRALINE HCL 50 MG TABLET PO SCH (08:33)
[2021-04-12] MEDS: ISOSORBIDE MONO EXTENDED REL 60 MG TABCR PO SCH (08:34)
[2021-04-12] MEDS: FLUTICASONE PROPIONATE NA SPR 16 GM BTL NAE SCH (08:35)
[2021-04-12] MEDS: INSULIN GLARGINE SOLOSTAR 100 UNITS/ML 3 ML PEN SC SCH (08:35)
[2021-04-12] MEDS: DOCUSATE SODIUM/SENNA 50/8.6MG TAB PO SCH (08:41)
[2021-04-12] MEDS: dexAMETHasone 6 MG in SYRINGE 0 ML IV SCH (08:41)
[2021-04-12] MEDS ORDERED: INSULIN HUMAN NPH SC SCH (09:00)
[2021-04-12] MEDS: INSULIN ASPART 100 UNITS/ML 3 ML PEN SC SCH ×4 (09:08→20:50)
--- NOTE | 2021-04-12 17:42 | Hospitalist Progress Note ---
Date of Service April 12, 2021 Assessment & Plan (1) Acute on chronic respiratory failure with hypoxia: (2) Gram-positive bacteremia: (3) Anxiety: Plan: 65-year-old female with PMH of asthma, DM, CHF, GERD, and recent ED 03/05 visit for Covid [03/05-03/25] who had fairly stayed stable on 4 to 5 L oxygen for many days prior to discharge presented again to our ED 03/30 with worsening shortness of breath. Patient had completed courses of dexamethasone and remdesivir in her prior admission and was discharged in stable condition on 4 L continuous nasal cannula oxygen. Patient is being managed for the following: #. Acute on chronic respiratory failure with hypoxia: #. History of COVID-19: #. Late phase ARDS: #. Pneumomediastinum - resolved per CXR 04/03 and 04/04 #. Bacteremia: -Patient presenting from home with reports of worsening shortness of breath. Recently admitted to [facility] 03/05 - 03/25 for hypoxic respiratory failure due to COVID 19 pneumonia. Completed courses of dexamethasone and remdesivir while admitted. Discharged on 4L O2 continuous. -On presentation to ED, patient in resp distress and was placed on CPAP however did not tolerate and was placed on [place] 40L 90% FiO2 - has had much improvement afterwards. -Admitting CTA negative for large PE however shows worsening consolidation and pneumomediastinum. -Procalcitonin negative, CRP 5.50 at presentation -Admitting WBC elevated, trending down -Chest imaging shows severe and constant bilateral pulmonary opacities -Pulmonology on board: Per Pulm, she has fibrotic changes in the CT scan --> hence proning would not be beneficial at this point. On Steroid for late phase ARDS (iv and INH). No indication to f/u on pneumomediastinum, resolved per 04/03 CXR. -03/30 blood culture positive for coagulase-negative staph [not lugdunensis] resistance to oxacillin/multidrug resistance -TTE on admission:-No evidence of vegetation. Patient had been afebrile. Source unknown but she did have an open skin wound related to her shingles rash on her buttock. -Repeat blood culture 04/02 -ve for any growth. -c/w vancomycin 04/02 -Awaiting ID recommendation, Nursing staff aware -Discussed with pulmonology, she has poor prognosis with regard to her lung condition. Pt made aware of her status and plan of care/prognosis 04/12 -Treatment options limited at this point - continue supportive care with O2 supplementation, nebs, flutter valve, IS, OOB, PT/OT -OOB / possible ambulation every 3- 4 hours (can increase O2 during activity). #. Pulmonary hypertension: #. Pericardial effusion 04/01 echo showing EF greater than 70% with grade 1 diastolic dysfunction. RV systolic pressure severely elevated at greater than 60 mmHg. Small loculated pericardial effusion, may suggest increased chronicity/stability. No tamponade physiology on echo. #. Anxiety: Clearly having difficulty coping with the situation at this point, patient has been counseled multiple times during the hospital stay. Continue with Xanax as needed, patient started on sertraline 04/07 - increased to 50 mg 04/10 Upon discharge, will need reevaluation by her PCP. #. Herpes Zoster: on b/l glutes. Completed valtrex x7d on 04/08. #. Diabetes: -hgb a1c 12.4 02/2021 -Lantus/Novolog #. Hypertension Fairly under control, continue current medications. #. DVT prophylaxis: -SQ Lovenox Disposition: continue PCU. 04/12 patient's [[phone]] was called and updated about the patient's status, answered all the question, he voiced understanding and was agreeable to the plan of care. Admission and Anticipated Discharge Date Admission Date: March 30, 2021 Subjective Patient was lying in bed, on 15L nasal cannula oxygen, NAD. Patient is eating and moving bowels okay. Pt reports feeling tired as always. Patient denies any headache/chills/fever/increased shortness of breath/other review of symptoms. Patient was made aware that her chances of recovery and possible outcome going forward, patient's was also called and updated about the plan of care. Both of them voiced understanding. Patient was more upset and anxious about her condition, advised to stay in touch with the family and stay emotionally strong. Physical Exam Physical Exam: GENERAL: Alert and oriented x3. NAD, on 15 L. HEENT: No pallor, no icterus. Pupils equal, round and reactive to light. Oral mucosa moist. NECK: No JVD, no neck masses. HEART: S1 and S2 heard. Regular rate and rhythm. Tachycardic. No murmur, no gallop. RESPIRATORY SYSTEM: Normal AP diameter. No accessory muscle use. No wheezing. Diminished breath sounds improving, fine crackles appreciated. ABDOMEN: Soft, bowel sounds present, nontender, no distention. CENTRAL NERVOUS SYSTEM: No facial droop. Speech is clear. Obeys simple commands. Moves extremities. EXTREMITIES: No edema, no erythema seen. Results & Data Results & Data ([facility]) Vital Signs (Past 12 Hours) Vital Signs Temp Pulse Pulse Pulse Resp BP Pulse Ox 04/12/21 16:02 36.4 C L 84 18 148/85 H 90 04/12/21 11:45 36.5 C 90 20 128/78 90 04/12/21 07:28 72 04/12/21 07:25 72 18 89 L 04/12/21 07:10 36.8 C 83 22 146/85 H 92
[2021-04-12] MEDS: ENOXAPARIN INJ 40 MG/0.4 ML SYR SQ SCH (20:50)
[2021-04-13] MEDS: VANCOMYCIN HCL 1,250 MG in SODIUM CHLORIDE 0.9% 250 ML IV SCH ×2 (01:29→14:14)
[2021-04-13] MEDS: CARBOHYDRATES FOR HYPOGLYCEMIA PO PRN (01:35)
[2021-04-13] MEDS ORDERED: XOPENEX/ATROVENT 1.25mg/0.5MG NEB COMBO NEB STA (02:49)
[2021-04-13] MEDS ORDERED: IPRATROPIUM BROMIDE NEB SOLN 0.02% 2.5 ML VIAL INH STA (02:56)
[2021-04-13] MEDS ORDERED: LEVALBUTEROL 1.25MG/0.5ML NEB INH STA (02:56)
[2021-04-13] MEDS: dexAMETHasone 6 MG in SYRINGE 0 ML IV SCH (03:46)
[2021-04-13] MEDS ORDERED: FUROSEMIDE 40 MG/4 ML VIAL IV ONE (03:59)
[2021-04-13] MEDS ORDERED: FUROSEMIDE 20 MG in SYRINGE 0 ML IV ONE (04:00)
[2021-04-13 04:12] LABS: Hematocrit (blood only) 37.3 % (37-47); Hemoglobin 12.2 g/dL (12.0-16.0); Mean Corpuscular Hemoglobin 30.1 pg (25-34); Mean Corpuscular Hgb Conc 32.7 g/dL (32-36); Mean Corpuscular Volume 92.1 fL (80-100); Mean Platelet Volume 9.6 fL (7.4-10.4); Platelet Count 490 K/uL (130-400); RDW Coefficient of Variation 15.5 % (11.5-14.5); RDW Standard Deviation 51.5 fL (36.4-46.3); Red Blood Count 4.05 M/uL (4.2-5.4); White Blood Count 22.11 K/uL (4.8-10.8)
[2021-04-13 04:23] LABS: Base Excess ABG 4.1 mEq/L (-9-1.8); HCO3 ABG 29 mmol/L (19-24); Oxygen Saturation ABG 87.9 % (90-95); PCO2 ABG 43 mmHg (35-46); PO2 ABG 53 mmHg (80-95); pH ABG 7.45 (7.35-7.45)
[2021-04-13 04:24] LABS: Allen Test POS (Pos)
[2021-04-13 04:30] LABS: BUN Creatinine Ratio 25.4 (10-20); C Reactive Protein 1.74 mg/dl (0-0.29); Calcium 9.2 mg/dl (8.5-10.1); Est GFR (African American) 109.7 ml/min; Est GFR (Non-African American) 94.6 ml/min; Magnesium 2.3 mg/dl (1.8-2.4); Potassium 4.2 mmol/L (3.5-5.1)
[2021-04-13 04:31] LABS: Partial Thromboplastin Ratio 0.9; Partial Thromboplastin Time 23.4 Seconds (21.0-31.0)
[2021-04-13 04:47] LABS: Basophils # (auto) 0.03 K/uL (0-0.2); Basophils % (auto) 0.1 %; Eosinophils # (auto) 0.11 K/uL (0-0.5); Eosinophils % (auto) 0.5 %; Immature Granulocytes # (auto) 0.25 K/uL (0.00-0.02); Immature Granulocytes % (auto) 1.1 %; Lymphocytes # (auto) 5.24 K/uL (1.2-3.4); Lymphocytes % (auto) 23.7 %; Monocytes # (auto) 1.22 K/uL (0.11-0.59); Monocytes % (auto) 5.5 %; Neutrophils # (auto) 15.26 K/uL (1.4-6.5); Neutrophils % (auto) 69.1 %; RBC Morphology Unremarkable
--- NOTE | 2021-04-13 07:26 | XRay Report ---
SINGLE VIEW CHEST CLINICAL HISTORY: Hypoxia. FINDINGS: An AP, portable, upright chest radiograph is compared to study dated 04/04/2021 and correla axel with chest CT dated 03/30/2021. A right internal jugular central venous infusion port is unchange d in position. The heart is top normal for projection noting atherosclerotic calcification of the tho racic aorta. Multifocal airspace consolidation is again seen throughout both lungs. This is similar t o previous. No large pleural effusion or pneumothorax is seen. The skeletal structures are osteopenic . The bony thorax is grossly intact. Intrathecal leads project over the lower thoracic region. IMPRESSION: Multifocal airspace consolidation has not significantly changed as compared to 04/04/2021 . ACT 112: Negative or not required by law. Electronically signed by: Hu Lee M.D. 04/13/2021 7:24 AM
[2021-04-13] MEDS ORDERED: INSULIN HUMAN NPH SC ONE (07:30)
[2021-04-13] MEDS: BUDESONIDE 0.5 MG/2 ML VIAL (PULMICORT) NEB SCH ×2 (07:34→19:25)
[2021-04-13] MEDS: ALPRAZolam 0.25 MG TABLET PO PRN ×2 (07:54→16:12)
[2021-04-13] MEDS: DOCUSATE SODIUM/SENNA 50/8.6MG TAB PO SCH (07:55)
[2021-04-13] MEDS: SERTRALINE HCL 50 MG TABLET PO SCH (07:55)
[2021-04-13] MEDS: ISOSORBIDE MONO EXTENDED REL 60 MG TABCR PO SCH (07:56)
[2021-04-13] MEDS: FLUTICASONE PROPIONATE NA SPR 16 GM BTL NAE SCH (07:56)
[2021-04-13] MEDS: METOPROLOL SUCC 25MG EXT REL TAB PO SCH ×3 (07:57→21:06)
[2021-04-13] MEDS ORDERED: INSULIN HUMAN NPH SC SCH ×2 (09:00)
[2021-04-13] MEDS: INSULIN ASPART 100 UNITS/ML 3 ML PEN SC SCH ×4 (09:04→21:02)
[2021-04-13] MEDS: INSULIN GLARGINE SOLOSTAR 100 UNITS/ML 3 ML PEN SC SCH (09:05)
--- NOTE | 2021-04-13 09:53 | Pharmacy Report ---
Pharmacy Glycemic Short Note 2 - Date of Service April 13, 2021 - Glycemic Short BSG Results (Last 24 hours): 04/12/21 04/12/21 04/12/21 11:35 12:29 16:23 Glucose POC Glucose 262 H 282 H 171 H 04/12/21 04/13/21 04/13/21 20:31 01:33 01:50 Glucose POC Glucose 168 H 62 L* 86 04/13/21 04/13/21 03:54 07:31 Glucose 153 H POC Glucose 175 H OUTPATIENT ANTIDIABETIC REGIMEN: * Novolin 70/30 30qAM and 15 PM * A1c 12.4% 03/05/21 ASSESSMENT: 04/13: * BSGs yesterday of 52, 74, 262, 171, and 168 mg/dL * Received 55 units of insulin (10 units of Lantus, 15 units of NPH, and 30 units of Novolog) * Another low BSG noted overnight (62 mg/dL) * IV dexamethasone given at 0346 this morning so will not consider AM BSG of 175 mg/dL a true fasting BSG * Plan to maintain NPH with tightened Novolog with meals to help with elevated prandial BSGs * Will decrease Lantus and remove HS Novolog to decrease likelihood of overnight hypoglycemia 04/11: * Pt was hypoglycemic early this AM. Fasting BSG = 69 mg/dl. * Post prandial BSGs at goal except for dinner BSG higher than 200 mg/dl yesterday. Continued basal insulin dosing the same today since pt continues to be on Dex 6 mg IV daily. * To prevent hypoglycemia in the AM, loosened HS carb ratio. Pt usually has a snack at HS. Background * Patient currently on high dose steroids, dexamethasone 20 mg IV (day 4/5), and will taper down to 10 mg on 04/05 * BSGs elevated likely d/t steroid, patient received 118 units of insulin yesterday, 46 of which were basal * Novolog parameters and lantus increased yesterday, BSGs have trended down with these changes, will continue same for now * Consider adding NPH with dexamethasone if BSGs continue to be elevated, held off for today as patient trended down overnight and BSGs have been acceptable so far today (all <180 mg/dL) PLAN FOR INPATIENT GLYCEMIC CONTROL: * Hold outpatient oral diabetes medications * Basal insulin - decrease Lantus * Lantus 8 units SQ qam * NPH 15 units qam with dexamethasone * Bolus insulin * NovoLog per scale AC or Q6hrs while NPO * Goal Range: Low 110 mg/dL - High 140 mg/dL * Correction Factor: 15 mg/dL/unit * Nutritional / Prandial insulin per carb ratio of 1 unit per 3 grams CHO consumed * No insulin coverage at HS Discharge Recommendations * Patient's HbA1C is above goal range (currently goal would be <8% while current HbA1C is 12.4%) * Patient's outpatient regimen JUST started after last admission so has not had time to be evaluated yet. * Please resume outpatient regimen and re-evaluate in 1 month's time.
[2021-04-13] MEDS ORDERED: VANCOMYCIN TROUGH ONE (13:30)
--- NOTE | 2021-04-13 14:04 | Pharmacy Report ---
Pharmacy Vanc AUC Short Note - Date of Service April 13, 2021 - Assessment & Plan Assessment 65 year old F receiving vancomycin for treatment of gram-positive cocci bacteremia. Initial blood cultures from 03/30 growing coag. neg Staph, repeat cultures from 04/02 were negative. Day # 13 of antimicrobial therapy. Plan Vancomycin * AUC/ALEXIS is the preferred PK/PD target for vancomycin * AUC guided dosing is effective and associated with decreased risk of nephroto xicity compared to traditional trough targets * Trough level of 18.2 mcg/mL is predicted to achieve target AUC/ALEXIS of 400-600 mg/L.hr and may be associated with a 12 % risk of nephrotoxicity * Continue dose of 1250 mg IV every 12 hours * Will repeat vanco trough as needed Pharmacy will continue to follow and will adjust dose/frequency as necessary. Thank you.
--- NOTE | 2021-04-13 15:59 | Pulmonology Progress Note ---
Date of Service April 13, 2021 Assessment & Plan (1) Acute on chronic respiratory failure with hypoxia: (2) History of COVID-19: (3) Pneumomediastinum: (4) Pericardial effusion: Plan: Impression: 65-year-old female with Covid pneumonia and hypoxemia and pneumome diastinum. No progression of her pneumomediastinum or development of any pneumothorax. Slight improvement in oxygen requriements. Chest x-ray performed today really shows no improvement since 04/04/2021. Recommendations: 1. Late-phase ARDS: Attempted to treat the patient with higher doses of steroids however these may have aggravated her anxiety and she has been decreased down to dexamethasone 6 mg a day. She has been on steroids for several weeks. We will begin to taper them effective tomorrow. Unclear if there is benefit to steroids as she was originally treated at [facility] 03/05/2021 to 03/25/2021 for Covid pneumonia. She had completed courses of dexamethasone and remdesivir during that period. Continue to recommend out of bed to chair. Continue aggressive incentive spirometry. Cardiology consult to consider need for right heart cath. Continue supportive care. 2. Pneumomediastinum: Suspect this is due to the Silver effect. Clinically and radiographically stable over the last several days. Most recent chest x- rays 04/04/2021. No indication for follow-up imaging currently. 3. Continue to wean oxygen as tolerated. Maintain minimum oxygen saturation of 88%. Continue out of bed to chair as tolerated. Ambulate as tolerated. Continue increased use of incentive spirometry. 4. 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 Patient is aware the prognosis is poor. Will rule out other treatable factors such as pulmonary hypertension from right heart disease or restrictive pericarditis. The only other option to consider would be lung transplant. 5. Serial procalcitonin and BNP levels were normal. Would recommend that the primary team discontinue vancomycin. If the patient is going to improve, suspect it may be a long protracted recover. When her oxygenation tolerates, consider PT and OT evaluations and increasing activity as tolerated. Unfortunately not much else to offer at this point. Pulmonary will continue to follow until cardiology issues have been identified. Discussion with regarding terminal weaning of supplemental oxygen if he gets to that point. Thank you for including us in the care of this patient. Admission and Anticipated Discharge Date Admission Date: March 30, 2021 Subjective Attending: Dr. Polanco Patient seen at bedside with present. She continues to have shortness of breath. She has been weaned down to 8 L via high flow cannula. Overall she continues to have malaise. It is a struggle to get out of bed to the chair. She denies any chest pain or tightness. She has no sweats. She denies fever. No hemoptysis. No acute complaints. Very despondent about her overall prognosis. Review of Systems Review of Systems: All systems reviewed & are unremarkable except as noted in Subjective Physical Exam Physical Exam: GENERAL : No acute distress EYES: No icterus, gaze conjugate NOSE: No evidence of epistaxis MOUTH: No lesions or candidiasis NECK: Supple LUNGS: Patient does appear to have increased breath sounds at the bases period. She also has newly appreciated bronchospasms which are faint in the upper skinner. No rhonchi. HEART: Regular, rate controlled ABDOMEN: Soft, NT, ND, BS Present EXTREMITIES: No LE edema, pedal pulses intact NEURO: A&OX3. Emotionally labile but appropriate for her prognosis. Results & Data Results & Data ([facility]) Vital Signs (Past 12 Hours) Vital Signs Temp Pulse Resp BP Pulse Ox 04/13/21 15:42 36.4 C L 111 H 18 122/69 96 04/13/21 14:52 36.6 C 102 H 22 122/78 90 04/13/21 12:00 90 04/13/21 07:34 74 19 95 04/13/21 07:30 37.3 C 76 94 H 146/78 H 94 04/13/21 04:00 36.5 C 76 30 H 153/93 H 91 Laboratory Results 04/13/21 03:54 04/13/21 03:54 Diagnostic Findings Chest X-Ray 04/13/21 02:48 SINGLE VIEW CHEST CLINICAL HISTORY: Hypoxia. FINDINGS: An AP, portable, upright chest radiograph is compared to study dated 04/04/2021 and correlated with chest CT dated 03/30/2021. A right internal jug ular central venous infusion port is unchanged in position. The heart is top normal for projection noting atherosclerotic calcification of the thoracic aorta. Multifocal airspace consolidation is again seen throughout both lungs. This is similar to previous. No large pleural effusion or pneumothorax is seen. The skeletal structures are osteopenic. The bony thorax is grossly intact. Intrathecal leads project over the lower thoracic region. IMPRESSION: Multifocal airspace consolidation has not significantly changed as compared to 04/04/2021. ACT 112: Negative or not required by law. Electronically signed by: Hu Lee M.D. 04/13/2021 7:24 AM Medications Administered Current Inpatient Medications Acetaminophen (Acetaminophen 325 Mg Tab) 650 mg PO Q4H PRN PRN Reason: Pain or Fever Stop: 04/29/21 19:09 Last Admin: 04/13/21 16:12 Dose: 650 mg Documented by: Alprazolam (Alprazolam 0.25 Mg Tablet) 0.25 mg PO Q8H PRN PRN Reason: severe anxiety Stop: 05/03/21 16:33 Last Admin: 04/13/21 16:12 Dose: 0.25 mg Documented by: Benzonatate (Benzonatate 100 Mg Capsule) 100 mg PO TID PRN PRN Reason: cough Stop: 04/29/21 20:59 Budesonide (Budesonide 0.5 Mg/2 Ml Vial (Pulmicort)) 0.5 mg NEB BIDR NELL Stop: 05/05/21 18:59 Last Admin: 04/13/21 07:34 Dose: 0.5 mg Documented by: Dextrose (Dextrose 50% 50 Ml Syringe) 25 - 50 ml IV UD PRN; Protocol PRN Reason: Hypoglycemia Protocol Stop: 04/29/21 19:09 Enoxaparin Sodium (Enoxaparin Inj 40 Mg/0.4 Ml Syr) 40 mg SQ Q24H NELL Stop: 04/29/21 19:59 Last Admin: 04/12/21 20:50 Dose: 40 mg Documented by: Fluticasone Propionate (Fluticasone Propionate Na Spr 16 Gm Btl) 2 sprays ALE DAILY NELL Stop: 05/02/21 16:29 Last Admin: 04/13/21 07:56 Dose: 2 sprays Documented by: Furosemide (Furosemide 40 Mg/4 Ml Vial) 40 mg IV DAILY NELL Stop: 05/08/21 08:59 Last Admin: 04/09/21 12:10 Dose: 40 mg Documented by: Glucagon (Glucagon For Inj 1 Mg Vial) 1 mg SQ UD PRN; Protocol PRN Reason: Hypoglycemia Protocol Stop: 04/29/21 19:09 Glucose (Glucose 10 Tabs/Tube) 4 - 8 tabs PO UD PRN; Protocol PRN Reason: Hypoglycemia Protocol Stop: 04/29/21 19:09 Glucose (Glucose 40% Gel 15 Gm Tube) 15 - 30 gm PO UD PRN; Protocol PRN Reason: Hypoglycemia Protocol Stop: 04/29/21 19:09 Guaifenesin/Codeine Phosphate (Guaifenesin/Codeine 200mg/20mg 10ml Udc) 10 ml PO Q6H PRN PRN Reason: Cough Stop: 05/01/21 15:45 Last Admin: 04/02/21 10:10 Dose: 10 ml Documented by: Vancomycin HCl 1,250 mg/ (Sodium Chloride) 275 mls @ 200 mls/hr IV Q12H [facility] Stop: 04/16/21 01:59 Last Infusion: 04/13/21 16:06 Dose: Infused Documented by: Dexamethasone 6 mg/ Syringe 1.5 mls @ 1 mls/min IV DAILY [facility] Stop: 05/13/21 02:49 Last Admin: 04/13/21 03:46 Dose: 1 mls/min Documented by: Insulin Aspart (Insulin Aspart 100 Units/Ml 3 Ml Pen) 0 units SC AC [facility] Stop: 05/09/21 16:29 Last Admin: 04/13/21 12:40 Dose: 7 units Documented by: Insulin Aspart (Insulin Aspart 100 Units/Ml 3 Ml Pen) 0 units SC HS [facility] Stop: 05/13/21 20:59 Insulin Glargine (Insulin Glargine Solostar 100 Units/Ml 3 Ml Pen) 8 units SC QAM [facility] Stop: 05/09/21 08:59 Last Admin: 04/13/21 09:05 Dose: 8 units Documented by: Insulin Human NPH (Insulin Human Nph) 15 units SC QAM [facility] Stop: 05/14/21 08:59 Isosorbide Mononitrate (Isosorbide Murray Extended Rel 60 Mg Tabcr) 60 mg PO QAM [facility] Stop: 05/10/21 08:59 Last Admin: 04/13/21 07:56 Dose: 60 mg Documented by: Levalbuterol HCl (Levalbuterol Tartrate 15 Gm Hfa.Aer.Ad) 2 puffs INH Q4R PRN PRN Reason: Shortness Of Breath Or Wheezing Stop: 04/30/21 12:49 Last Admin: 04/02/21 08:05 Dose: 2 puffs Documented by: Levalbuterol HCl (Levalbuterol Hcl 1.25 Mg/3 Ml Neb) 1.25 mg NEB Q4H PRN PRN Reason: Shortness Of Breath Or Wheezing Stop: 05/01/21 20:06 Last Admin: 04/01/21 21:54 Dose: 1.25 mg Documented by: Melatonin (Melatonin 3 Mg Tab) 3 mg PO HS PRN PRN Reason: insomnia Stop: 04/29/21 19:09 Metoprolol Succinate (Metoprolol Succ 25mg Ext Rel Tab) 12.5 mg PO TID NELL Stop: 05/03/21 13:59 Last Admin: 04/13/21 14:48 Dose: 12.5 mg Documented by: Miscellaneous (Carbohydrates For Hypoglycemia ) 15 - 30 gm PO UD PRN PRN Reason: Hypoglycemia Protocol Stop: 04/29/21 19:09 Last Admin: 04/13/21 01:35 Dose: 15 gm Documented by: Miscellaneous Information (Vancomycin Consult Active) 1 ea N/A UD PRN PRN Reason: Consult Stop: 05/01/21 15:37 Miscellaneous Information (Pharmacy Glycemic Mgmt Consult) 1 ea N/A UD PRN PRN Reason: Consult Stop: 05/02/21 18:31 Phenol (Chloraseptic 1.4% Soln 180 Ml Btl) 1 sprays MT Q6H PRN PRN Reason: Sore Throat Stop: 05/05/21 20:58 Polyethylene Glycol (Polyethylene (Miralax) 17 Gm Pack) 17 gm PO DAILY PRN PRN Reason: Constipation Stop: 05/11/21 19:53 Senna/Docusate Sodium (Docusate Sodium/Senna 50/8.6mg Tab) 1 tab PO QAM [facility] Stop: 05/11/21 19:59 Last Admin: 04/13/21 07:55 Dose: 1 tab Documented by: Sertraline HCl (Sertraline Hcl 50 Mg Tablet) 50 mg PO QAM [facility] Stop: 05/10/21 08:59 Last Admin: 04/13/21 07:55 Dose: 50 mg Documented by: PG Care Time/CCT Total # of Minutes Spent Total Time Spent with Patient: Total time spent is greater than 50% in coordination of care (as documented) at patient's floor/unit and/or counseling patient: 60 minutes including family discussion with patient and Coding Level of Care Code 04898 Subseq Hosp Care Lvl 3 (25 - SIGNIFICANT, SEPARATELY IDENTIFIABLE ) Diagnoses Acute on chronic respiratory failure with hypoxia J96.21 History of COVID-19 Z86.16 Pneumomediastinum J98.2 Pericardial effusion I31.3 Time Spent (min) 60
[2021-04-13] MEDS: ACETAMINOPHEN 325 MG TAB PO PRN (16:12)
--- NOTE | 2021-04-13 16:17 | Hospitalist Progress Note ---
Date of Service April 13, 2021 Assessment & Plan (1) Acute on chronic respiratory failure with hypoxia: (2) Gram-positive bacteremia: (3) Anxiety: Plan: 65-year-old female with PMH of asthma, DM, CHF, GERD, and recent ED 03/05 visit for Covid [03/05-03/25] who had fairly stayed stable on 4 to 5 L oxygen for many days prior to discharge presented again to our ED 03/30 with worsening shortness of breath. Patient had completed courses of dexamethasone and remdesivir in her prior admission and was discharged in stable condition on 4 L continuous nasal cannula oxygen. Patient is being managed for the following: #. Acute on chronic respiratory failure with hypoxia: #. History of COVID-19: #. Late phase ARDS: #. Pneumomediastinum - resolved per CXR 04/03 and 04/04 #. Bacteremia: -Patient presenting from home with reports of worsening shortness of breath. Recently admitted to [facility] 03/05 - 03/25 for hypoxic respiratory failure due to COVID 19 pneumonia. Completed courses of dexamethasone and remdesivir while admitted. Discharged on 4L O2 continuous. -On presentation to ED, patient in resp distress and was placed on CPAP however did not tolerate and was placed on [place] 40L 90% FiO2 - has had much improvement afterwards. -Admitting CTA negative for large PE however shows worsening consolidation and pneumomediastinum. -Procalcitonin negative, CRP 5.50 at presentation -Admitting WBC elevated, trending down -Chest imaging shows severe and constant bilateral pulmonary opacities -Pulmonology on board: Per Pulm, she has fibrotic changes in the CT scan --> hence proning would not be beneficial at this point. On Steroid for late phase ARDS (iv and INH). No indication to f/u on pneumomediastinum, resolved per 04/03 CXR. -03/30 blood culture positive for coagulase-negative staph [not lugdunensis] resistance to oxacillin/multidrug resistance -TTE on admission:-No evidence of vegetation. Patient had been afebrile. Source unknown but she did have an open skin wound related to her shingles rash on her buttock. -Repeat blood culture 04/02 -ve for any growth. -c/w vancomycin 04/02 -Awaiting ID recommendation, Nursing staff made aware. -Discussed with pulmonology, she has poor prognosis with regard to her lung condition. Pt made aware of her status and plan of care/prognosis 04/12 -Treatment options limited at this point - continue supportive care with O2 sup plementation, nebs, flutter valve, IS, OOB, PT/OT -OOB / possible ambulation every 3- 4 hours (can increase O2 during activity). - 04/13: Family meeting with patient and her with myself and pulmonology for around 45 min to give update on her current status and prognosis going forward. Patient was apparently upset upon hearing the slim chance of recovery of her current pulmonology condition, answered all questions that patient had and her had. #. Pulmonary hypertension: #. Pericardial effusion 04/01 echo showing EF greater than 70% with grade 1 diastolic dysfunction. RV systolic pressure severely elevated at greater than 60 mmHg. Small loculated pericardial effusion, may suggest increased chronicity/stability. No tamponade physiology on echo. #. Anxiety: Clearly having difficulty coping with the situation at this point, patient has been counseled multiple times during the hospital stay. Continue with Xanax as needed, patient started on sertraline 04/07 - increased to 50 mg 04/10 Upon discharge, will need reevaluation by her PCP. #. Herpes Zoster: on b/l glutes. Completed valtrex x7d on 04/08. #. Diabetes: -hgb a1c 12.4 02/2021 -Lantus/Novolog #. Hypertension Fairly under control, continue current medications. #. DVT prophylaxis: -SQ Lovenox Disposition: continue PCU. 04/12 patient's [[phone]] was called and updated about the patient's status, answered all the question, he voiced understanding and was agreeable to the plan of care. Admission and Anticipated Discharge Date Admission Date: March 30, 2021 Subjective Patient was lying in bed, in mild to moderate distress, on 12 L nasal cannula oxygen. Patient reports no acute events overnight but apparently she had chest x-ray in the morning for hypoxic event but I did not see such documentation in the EMR. Her chest x-ray though looks worse than prior, thinking she might have been overloaded, she was given IV Lasix, but looking at her CBC it looks like hemoconcentration with rising all three lines of blood cells. patient reports ongoing feeling of tiredness and he states that she is losing hope. Patient counseled to be in touch with family and to stay emotionally strong. Patient advised to continue with flutter valve and incentive spirometry every hour while awake. Patient denies headache/chills/chest pain/palpitation/other review of symptoms. Physical Exam Physical Exam: GENERAL: Alert and oriented x3. mild to moderate distress, on 12 L. Appears sad HEENT: No pallor, no icterus. Pupils equal, round and reactive to light. Oral mucosa moist. NECK: No JVD, no neck masses. HEART: S1 and S2 heard. Regular rate and rhythm. Tachycardic. No murmur, no gallop. RESPIRATORY SYSTEM: Normal AP diameter. No accessory muscle use. No wheezing. Diminished breath sounds improving, fine crackles appreciated. ABDOMEN: Soft, bowel sounds present, nontender, no distention. CENTRAL NERVOUS SYSTEM: No facial droop. Speech is clear. Obeys simple commands. Moves extremities. EXTREMITIES: No edema, no erythema seen. Results & Data Results & Data ([facility]) Vital Signs (Past 12 Hours) Vital Signs Temp Pulse Resp BP Pulse Ox 04/13/21 15:42 36.4 C L 111 H 18 122/69 96 04/13/21 14:52 36.6 C 102 H 22 122/78 90 04/13/21 12:00 90 04/13/21 07:34 74 19 95 04/13/21 07:30 37.3 C 76 94 H 146/78 H 94
[2021-04-13] MEDS: ENOXAPARIN INJ 40 MG/0.4 ML SYR SQ SCH (19:43)
[2021-04-14] MEDS: VANCOMYCIN HCL 1,250 MG in SODIUM CHLORIDE 0.9% 250 ML IV SCH ×2 (02:00→13:08)
[2021-04-14] MEDS: ALPRAZolam 0.25 MG TABLET PO PRN ×2 (06:02→16:07)
[2021-04-14 06:04] LABS: Hematocrit (blood only) 37.2 % (37-47); Hemoglobin 11.7 g/dL (12.0-16.0); Mean Corpuscular Hemoglobin 29.3 pg (25-34); Mean Corpuscular Hgb Conc 31.5 g/dL (32-36); Mean Platelet Volume 9.8 fL (7.4-10.4); Platelet Count 474 K/uL (130-400); RDW Coefficient of Variation 15.6 % (11.5-14.5); RDW Standard Deviation 51.8 fL (36.4-46.3); White Blood Count 22.92 K/uL (4.8-10.8)
[2021-04-14 06:36] LABS: BUN Creatinine Ratio 33.4 (10-20); Calcium 8.7 mg/dl (8.5-10.1); Creatinine Clr Calc Pharmacy 101.7 ml/min; Est GFR (African American) 108.5 ml/min; Est GFR (Non-African American) 93.6 ml/min; Potassium 3.7 mmol/L (3.5-5.1)
[2021-04-14] MEDS: BUDESONIDE 0.5 MG/2 ML VIAL (PULMICORT) NEB SCH ×2 (07:31→19:39)
[2021-04-14] MEDS: INSULIN ASPART 100 UNITS/ML 3 ML PEN SC SCH ×4 (07:52→20:39)
[2021-04-14] MEDS: METOPROLOL SUCC 25MG EXT REL TAB PO SCH ×3 (07:53→20:49)
[2021-04-14] MEDS: ISOSORBIDE MONO EXTENDED REL 60 MG TABCR PO SCH (07:54)
[2021-04-14] MEDS: DOCUSATE SODIUM/SENNA 50/8.6MG TAB PO SCH (07:54)
[2021-04-14] MEDS: SERTRALINE HCL 50 MG TABLET PO SCH (07:54)
[2021-04-14] MEDS: FLUTICASONE PROPIONATE NA SPR 16 GM BTL NAE SCH (07:55)
[2021-04-14] MEDS: INSULIN GLARGINE SOLOSTAR 100 UNITS/ML 3 ML PEN SC SCH (07:56)
[2021-04-14] MEDS: INSULIN HUMAN NPH SC SCH (07:56)
[2021-04-14] MEDS: dexAMETHasone 6 MG in SYRINGE 0 ML IV SCH (08:10)
[2021-04-14] MEDS ORDERED: POTASSIUM CHLORIDE CRTAB 20 MEQ TABCR PO STA (08:49)
[2021-04-14 10:36] LABS: CoV2 Total Antibody Positive (Negative)
--- NOTE | 2021-04-14 15:43 | Pulmonology Progress Note ---
Date of Service April 14, 2021 Assessment & Plan (1) Acute on chronic respiratory failure with hypoxia: (2) History of COVID-19: (3) Pneumomediastinum: (4) Pericardial effusion: Plan: Impression: 65-year-old female with Covid pneumonia and hypoxemia and pneumome diastinum. No progression of her pneumomediastinum or development of any pneumothorax. Slight improvement in oxygen requriements. Chest x-ray performed today really shows no improvement since 04/04/2021. Cardiology reengage. Echocardiogram performed. Report pending. Recommendations: 1. Late-phase ARDS: Attempted to treat the patient with higher doses of steroids however these may have aggravated her anxiety and she has been decreased down to dexamethasone 6 mg a day. Dexamethasone will be discontinued after today's dose. Will start patient on prednisone 40 mg p.o. daily and start to taper as tolerated. She has been on steroids for several weeks. Unclear if there is benefit to steroids as she was originally treated at [facility] 03/05/2021 to 03/25/2021 for Covid pneumonia. She had completed courses of dexamethasone and remdesivir during that period. Continue to recommend out of bed to chair. Continue aggressive incentive spirometry. Cardiology consult to consider need for right heart cath. Continue supportive care. 2. Pneumomediastinum: Suspect this is due to the Silver effect. Clinically and radiographically stable over the last several days. Most recent chest x-ray without significant improvement. No indication for follow-up imaging currently. 3. Continue to wean oxygen as tolerated. Maintain minimum oxygen saturation of 88%. Continue out of bed to chair as tolerated. Ambulate as tolerated. Continue aggressive use of incentive spirometry. 4. 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 Discussed again today with patient. Patient is aware the prognosis is poor. Will rule out other treatable factors such as pulmonary hypertension from right heart disease. The only other option to consider would be lung transplant. 5. Serial procalcitonin and BNP levels were normal. Would recommend that the primary team discontinue vancomycin. If the patient is going to improve, suspect it may be a long protracted recovery period. Continue PT and OT and increasing activity as tolerated. Unfortunately not much else to offer at this point. Pulmonary will continue to follow until cardiology issues have been determined. Discussion with regarding terminal weaning of supplemental oxygen if she gets to that point. Thank you for including us in the care of this patient. Admission and Anticipated Discharge Date Admission Date: March 30, 2021 Subjective Attending: Dr. Polanco Patient is sitting in bedside chair. She continues to be somewhat emotional. Oxygen has been weaned down to 5 L/min via nasal cannula. Patient does still require increased oxygen levels to 8 L with any kind of exertion. She denies any chest pain or tightness. Cardiology has not yet seen her but an echocardiogram was completed. Patient continues to have lots of questions about prognosis and asked a lot of if, what then questions. Unable to successfully answer all of patient's questions. Patient has no acute complaints. Review of Systems Review of Systems: All systems reviewed & are unremarkable except as noted in Subjective Physical Exam Physical Exam: GENERAL : Moderate distress EYES: No icterus, gaze conjugate NOSE: No evidence of epistaxis. Nasal cannula is in place MOUTH: No lesions or candidiasis. Mucosa is moist NECK: Supple LUNGS: Decreased breath sounds throughout. No overt rales or rhonchi. No appreciation of bronchospasm. HEART: Regular, rate controlled. No murmurs gallops or rubs appreciated. ABDOMEN: Soft, NT, ND, BS Present EXTREMITIES: Trace LE edema, pedal pulses intact and equal bilaterally. NEURO: A&OX3. Emotional. Results & Data Results & Data ([facility]) Vital Signs (Past 12 Hours) Vital Signs Temp Pulse Pulse Resp BP BP Pulse Ox 04/14/21 12:04 36.5 C 83 18 132/73 94 04/14/21 07:50 36.5 C 75 24 146/84 H 90 04/14/21 07:31 78 16 93 04/14/21 04:49 36.6 C 78 28 H 135/65 94 Laboratory Results 04/14/21 05:53 04/14/21 05:53 Diagnostic Findings No further diagnostics Medications Administered Current Inpatient Medications Acetaminophen (Acetaminophen 325 Mg Tab) 650 mg PO Q4H PRN PRN Reason: Pain or Fever Stop: 04/29/21 19:09 Last Admin: 04/13/21 16:12 Dose: 650 mg Documented by: Alprazolam (Alprazolam 0.25 Mg Tablet) 0.25 mg PO Q8H PRN PRN Reason: severe anxiety Stop: 05/03/21 16:33 Last Admin: 04/14/21 06:02 Dose: 0.25 mg Documented by: Benzonatate (Benzonatate 100 Mg Capsule) 100 mg PO TID PRN PRN Reason: cough Stop: 04/29/21 20:59 Budesonide (Budesonide 0.5 Mg/2 Ml Vial (Pulmicort)) 0.5 mg NEB BIDR NELL Stop: 05/05/21 18:59 Last Admin: 04/14/21 07:31 Dose: 0.5 mg Documented by: Dextrose (Dextrose 50% 50 Ml Syringe) 25 - 50 ml IV UD PRN; Protocol PRN Reason: Hypoglycemia Protocol Stop: 04/29/21 19:09 Enoxaparin Sodium (Enoxaparin Inj 40 Mg/0.4 Ml Syr) 40 mg SQ Q24H NELL Stop: 04/29/21 19:59 Last Admin: 04/13/21 19:43 Dose: 40 mg Documented by: Fluticasone Propionate (Fluticasone Propionate Na Spr 16 Gm Btl) 2 sprays ALE DAILY NELL Stop: 05/02/21 16:29 Last Admin: 04/14/21 07:55 Dose: 2 sprays Documented by: Glucagon (Glucagon For Inj 1 Mg Vial) 1 mg SQ UD PRN; Protocol PRN Reason: Hypoglycemia Protocol Stop: 04/29/21 19:09 Glucose (Glucose 10 Tabs/Tube) 4 - 8 tabs PO UD PRN; Protocol PRN Reason: Hypoglycemia Protocol Stop: 04/29/21 19:09 Glucose (Glucose 40% Gel 15 Gm Tube) 15 - 30 gm PO UD PRN; Protocol PRN Reason: Hypoglycemia Protocol Stop: 04/29/21 19:09 Guaifenesin/Codeine Phosphate (Guaifenesin/Codeine 200mg/20mg 10ml Udc) 10 ml PO Q6H PRN PRN Reason: Cough Stop: 05/01/21 15:45 Last Admin: 04/02/21 10:10 Dose: 10 ml Documented by: Vancomycin HCl 1,250 mg/ (Sodium Chloride) 275 mls @ 200 mls/hr IV Q12H NELL Stop: 04/16/21 01:59 Last Infusion: 04/14/21 14:28 Dose: Infused Documented by: Insulin Aspart (Insulin Aspart 100 Units/Ml 3 Ml Pen) 0 units SC AC NELL Stop: 05/09/21 16:29 Last Admin: 04/14/21 12:01 Dose: 11 units Documented by: Insulin Aspart (Insulin Aspart 100 Units/Ml 3 Ml Pen) 0 units SC HS [facility] Stop: 05/13/21 20:59 Last Admin: 04/13/21 21:02 Dose: Not Given Documented by: Insulin Glargine (Insulin Glargine Solostar 100 Units/Ml 3 Ml Pen) [facility] Stop: 05/09/21 08:59 Last Admin: 04/14/21 07:56 Dose: 8 units Documented by: Insulin Human NPH (Insulin Human Nph) 15 units SC [facility] Stop: 05/14/21 08:59 Last Admin: 04/14/21 07:56 Dose: 15 units Documented by: Isosorbide Mononitrate (Isosorbide [place] Extended Rel 60 Mg Tabcr) 60 mg PO QAM [facility] Stop: 05/10/21 08:59 Last Admin: 04/14/21 07:54 Dose: 60 mg Documented by: Levalbuterol HCl (Levalbuterol Tartrate 15 Gm Hfa.Aer.Ad) 2 puffs INH Q4R PRN PRN Reason: Shortness Of Breath Or Wheezing Stop: 04/30/21 12:49 Last Admin: 04/02/21 08:05 Dose: 2 puffs Documented by: Levalbuterol HCl (Levalbuterol Hcl 1.25 Mg/3 Ml Neb) 1.25 mg NEB Q4H PRN PRN Reason: Shortness Of Breath Or Wheezing Stop: 05/01/21 20:06 Last Admin: 04/01/21 21:54 Dose: 1.25 mg Documented by: Melatonin (Melatonin 3 Mg Tab) 3 mg PO HS PRN PRN Reason: insomnia Stop: 04/29/21 19:09 Metoprolol Succinate (Metoprolol Succ 25mg Ext Rel Tab) 12.5 mg PO TID [facility] Stop: 05/03/21 13:59 Last Admin: 04/14/21 12:10 Dose: 12.5 mg Documented by: Miscellaneous (Carbohydrates For Hypoglycemia ) 15 - 30 gm PO UD PRN PRN Reason: Hypoglycemia Protocol Stop: 04/29/21 19:09 Last Admin: 04/13/21 01:35 Dose: 15 gm Documented by: Miscellaneous Information (Vancomycin Consult Active) 1 ea N/A UD PRN PRN Reason: Consult Stop: 05/01/21 15:37 Miscellaneous Information (Pharmacy Glycemic Mgmt Consult) 1 ea N/A UD PRN PRN Reason: Consult Stop: 05/02/21 18:31 Phenol (Chloraseptic 1.4% Soln 180 Ml Btl) 1 sprays MT Q6H PRN PRN Reason: Sore Throat Stop: 05/05/21 20:58 Polyethylene Glycol (Polyethylene (Miralax) 17 Gm Pack) 17 gm PO DAILY PRN PRN Reason: Constipation Stop: 05/11/21 19:53 Prednisone (Prednisone 20 Mg Tab) 40 mg PO DAILY [facility] Stop: 05/15/21 08:59 Senna/Docusate Sodium (Docusate Sodium/Senna 50/8.6mg Tab) 1 tab PO QAM [facility] Stop: 05/11/21 19:59 Last Admin: 04/14/21 07:54 Dose: 1 tab Documented by: Sertraline HCl (Sertraline Hcl 50 Mg Tablet) 50 mg PO QAM [facility] Stop: 05/10/21 08:59 Last Admin: 04/14/21 07:54 Dose: 50 mg Documented by: PG Care Time/CCT Total # of Minutes Spent Total Time Spent with Patient: Total time spent is greater than 50% in coordination of care (as documented) at patient's floor/unit and/or counseling patient:20 minutes Coding Level of Care Code 17055 Subseq Hosp Care Lvl 2 Diagnoses Acute on chronic respiratory failure with hypoxia J96.21 History of COVID-19 Z86.16 Pneumomediastinum J98.2 Pericardial effusion I31.3 Time Spent (min) 20
--- NOTE | 2021-04-14 16:59 | Hospitalist Progress Note ---
Date of Service April 14, 2021 Assessment & Plan (1) Acute on chronic respiratory failure with hypoxia: (2) Gram-positive bacteremia: (3) Anxiety: Plan: 65-year-old female with PMH of asthma, DM, CHF, GERD, and recent ED 03/05 visit for Covid [03/05-03/25] who had fairly stayed stable on 4 to 5 L oxygen for many days prior to discharge presented again to our ED 03/30 with worsening shortness of breath. Patient had completed courses of dexamethasone and remdesivir in her prior admission and was discharged in stable condition on 4 L continuous nasal cannula oxygen. Patient is being managed for the following: #. Acute on chronic respiratory failure with hypoxia: #. History of COVID-19: #. Late phase ARDS: #. Pneumomediastinum - resolved per CXR 04/03 and 04/04 #. Bacteremia: -Patient presenting from home with reports of worsening shortness of breath. Recently admitted to [facility] 03/05 - 03/25 for hypoxic respiratory failure due to COVID 19 pneumonia. Completed courses of dexamethasone and remdesivir while admitted. Discharged on 4L O2 continuous. -On presentation to ED, patient in resp distress and was placed on CPAP however did not tolerate and was placed on [place] 40L 90% FiO2 - has had much improvement afterwards. -Admitting CTA negative for large PE however shows worsening consolidation and pneumomediastinum. -Procalcitonin negative, CRP 5.50 at presentation -Admitting WBC elevated, trending down -Chest imaging shows severe and constant bilateral pulmonary opacities -Pulmonology on board: Per Pulm, she has fibrotic changes in the CT scan --> hence proning would not be beneficial at this point. On Steroid for late phase ARDS (iv and INH). No indication to f/u on pneumomediastinum, resolved per 04/03 CXR. -03/30 blood culture positive for coagulase-negative staph [not lugdunensis] resistance to oxacillin/multidrug resistance -TTE on admission:-No evidence of vegetation. Patient had been afebrile. Source unknown but she did have an open skin wound related to her shingles rash on her buttock. -Repeat blood culture 04/02 -ve for any growth. -c/w vancomycin 04/02 -DC'd vancomycin 10/26 per ID recommendation [note pending, message received from RN]. Follow-up with ID recommendation once note is out. -Discussed with pulmonology, she has poor prognosis with regard to her lung condition. Pt made aware of her status and plan of care/prognosis 04/12 -Treatment options limited at this point per pulm - continue supportive care with O2 supplementation, nebs, flutter valve, IS, OOB, PT/OT. Pt is on 6 L O2. -OOB / possible ambulation every 3- 4 hours (can increase O2 during activity). - 04/13: Family meeting with patient and her with myself and pulmonology for around 45 min to give update on her current status and prognosis going forward. Patient was apparently upset upon hearing the slim chance of recovery of her current pulmonology condition, answered all questions that patient had and her had. #. Pulmonary hypertension: #. Pericardial effusion 04/01 echo showing EF greater than 70% with grade 1 diastolic dysfunction. RV systolic pressure severely elevated at greater than 60 mmHg. Small loculated pericardial effusion, may suggest increased chronicity/stability. No tamponade physiology on echo. Cardiology reconsulted per Pulm for possible Rt Heart Cath and awaiting further input if there is component of Rt Heart Failure/ Pulm HTN that is amenable to Rx. #. Anxiety: Clearly having difficulty coping with the situation at this point, patient has been counseled multiple times during the hospital stay. Continue with Xanax as needed, patient started on sertraline 04/07 - increased to 50 mg 04/10 Upon discharge, will need reevaluation by her PCP. #. Herpes Zoster: on b/l glutes. Completed valtrex x7d on 04/08. #. Diabetes: -hgb a1c 12.4 02/2021 -Lantus/Novolog #. Hypertension Fairly under control, continue current medications. #. DVT prophylaxis: -SQ Lovenox Disposition: continue PCU. 04/12 patient's [[phone]] was called and updated about the patient's status, answered all the question, he voiced understanding and was agreeable to the plan of care. Admission and Anticipated Discharge Date Admission Date: March 30, 2021 Subjective Patient sitting up in chair, on 6 L nasal cannula oxygen, no new acute events overnight. Patient feels somewhat tired, is still curious as to what prognosis would be for her which has been explained in detail multiple times to the patient we are awaiting cardiology input at this time. Patient denies headache/dizziness/chest pain/palpitation/other review of symptoms. Patient eating and moving bowels okay. Physical Exam Physical Exam: GENERAL: Alert and oriented x3. mild to moderate distress, on 6 L. HEENT: No pallor, no icterus. Pupils equal, round and reactive to light. Oral mucosa moist. NECK: No JVD, no neck masses. HEART: S1 and S2 heard. Regular rate and rhythm. No murmur, no gallop. RESPIRATORY SYSTEM: Normal AP diameter. No accessory muscle use. No wheezing. Diminished breath sounds stable, fine crackles appreciated diffuse and bilateral. ABDOMEN: Soft, bowel sounds present, nontender, no distention. CENTRAL NERVOUS SYSTEM: No facial droop. Speech is clear. Obeys simple commands. Moves extremities. EXTREMITIES: No edema, no erythema seen. Results & Data Results & Data ([facility]) Vital Signs (Past 12 Hours) Vital Signs Temp Pulse Pulse Resp BP BP Pulse Ox 04/14/21 15:58 36.5 C 80 24 150/84 H 95 04/14/21 12:04 36.5 C 83 18 132/73 94 04/14/21 07:50 36.5 C 75 24 146/84 H 90 04/14/21 07:31 78 16 93
[2021-04-14] MEDS: ENOXAPARIN INJ 40 MG/0.4 ML SYR SQ SCH (19:34)
[2021-04-15] MEDS: ALPRAZolam 0.25 MG TABLET PO PRN ×3 (04:22→21:30)
[2021-04-15] MEDS ORDERED: ALBUMIN 25% 12.5 GM/50 ML VIAL IV ONE (05:54)
[2021-04-15] MEDS: BUDESONIDE 0.5 MG/2 ML VIAL (PULMICORT) NEB SCH ×2 (07:23→19:17)
[2021-04-15 08:10] LABS: BUN Creatinine Ratio 46.3 (10-20); Calcium 9.1 mg/dl (8.5-10.1); Creatinine Clr Calc Pharmacy 129.8 ml/min; Est GFR (Non-African American) 104.4 ml/min; Magnesium 2.4 mg/dl (1.8-2.4); Potassium 3.9 mmol/L (3.5-5.1)
[2021-04-15] MEDS: predniSONE 20 MG TAB PO SCH (08:26)
[2021-04-15] MEDS: ISOSORBIDE MONO EXTENDED REL 60 MG TABCR PO SCH (08:26)
[2021-04-15] MEDS: SERTRALINE HCL 50 MG TABLET PO SCH (08:26)
[2021-04-15] MEDS: METOPROLOL SUCC 25MG EXT REL TAB PO SCH ×3 (08:27→21:31)
[2021-04-15] MEDS: DOCUSATE SODIUM/SENNA 50/8.6MG TAB PO SCH (08:28)
[2021-04-15] MEDS: FLUTICASONE PROPIONATE NA SPR 16 GM BTL NAE SCH (08:30)
[2021-04-15] MEDS: INSULIN ASPART 100 UNITS/ML 3 ML PEN SC SCH ×4 (09:08→21:54)
[2021-04-15] MEDS: INSULIN GLARGINE SOLOSTAR 100 UNITS/ML 3 ML PEN SC SCH (09:09)
[2021-04-15] MEDS: INSULIN HUMAN NPH SC SCH (09:10)
--- NOTE | 2021-04-15 10:29 | Cardiology Progress Note ---
Date of Service April 15, 2021 Assessment & Plan (1) Acute on chronic respiratory failure with hypoxia: (2) Pneumomediastinum: (3) Pericardial effusion: (4) Pulmonary hypertension: (5) Pneumonia due to 2019 novel coronavirus: Plan: The patient has had a long difficult course due to Covid pneumonia. She remains hypoxic despite 6 L of nasal cannula. I have reviewed the echocardiogram from the other day as well as a week ago. The patient does have pulmonary hypertension although on the most recent echocardiogram it seems to have improved slightly. The pulmonary group is asked us to perform a right heart catheterization to document pulmonary hypertension as well as provide a pulmonary capillary wedge pressure to determine left-sided volume status. I am concerned that the patient may not be able to lie flat on the x-ray table in the [employer] to have the procedure. After a lengthy discussion with the patient she is agreeable and feels that she can proceed and lie flat without difficulty. I explained the risk, benefit and intent of the procedure and she is willing to proceed. We will hold her Lovenox tonight. She will be n.p.o. after midnight. Admission and Anticipated Discharge Date Admission Date: March 30, 2021 Subjective The patient is in no acute distress. Review of Systems Review of Systems: Review of Systems: See HPI for pertinent positives. All other 10 point review of systems are negative. Physical Exam Physical Exam: General: no acute distress Head: normocephalic, no masses, lesions, tenderness or abnormalities Eyes: conjunctiva are pink and non-injected, sclera clear Neck: supple, no adenopathy, no bruits, normal jugular venous pulse, no hepatojugular reflux Chest: normal shape and normal respiratory effort Lungs: Equal breath sounds with diffuse crackles Cardiac Exam: - regular rate & rhythm, no murmurs gallops or rubs - normal S1, normal S2 Pulses: 2(+) throughout Abdomen: abdomen soft, non-tender, no abnormal masses and no hepatosplenomegaly Musculoskeletal: no gait disturbance, no joint inflammation, no deforming arthritis Extremities: no edema and no cyanosis Neuro: grossly normal exam Results & Data ([facility]) Vital Signs (Past 12 Hours) Vital Signs Temp Pulse Pulse Resp BP Pulse Ox 04/15/21 07:30 65 04/15/21 07:23 81 16 92 04/15/21 06:52 37.0 C 80 18 138/78 96 04/15/21 03:36 37.0 C 72 19 129/78 94 04/15/21 02:00 77 04/14/21 23:19 36.7 C 83 19 134/81 92 Laboratory Results Laboratory Results - last 24 hr 04/14/21 04/14/21 04/14/21 09:46 11:17 12:00 Sodium Potassium Chloride Carbon Dioxide Anion Gap BUN Creatinine Est Cr Clr Drug Dosing Est GFR ( Amer) Est GFR (Non-Af Amer) BUN/Creatinine Ratio Glucose POC Glucose 122 H Calcium Magnesium COVID-19 Eval Order Covid19 at [facility] SARS-CoV-2 (PCR) SARS-CoV-2 IgG & IgM Ab Positive A 04/14/21 04/14/21 04/14/21 12:00 16:06 20:24 Sodium Potassium Chloride Carbon Dioxide Anion Gap BUN Creatinine Est Cr Clr Drug Dosing Est GFR ( Amer) Est GFR (Non-Af Amer) BUN/Creatinine Ratio Glucose POC Glucose 150 H 174 H Calcium Magnesium COVID-19 Eval Order SARS-CoV-2 (PCR) NEGATIVE SARS-CoV-2 IgG & IgM Ab 04/15/21 04/15/21 07:00 07:08 Sodium 140 Potassium 3.9 Chloride 105 Carbon Dioxide 29 Anion Gap 6.0 BUN 21 H Creatinine 0.46 L Est Cr Clr Drug Dosing 129.8 Est GFR ( Amer) 121.0 Est GFR (Non-Af Amer) 104.4 BUN/Creatinine Ratio 46.3 H Glucose 92 POC Glucose 93 Calcium 9.1 Magnesium 2.4 COVID-19 Eval Order SARS-CoV-2 (PCR) SARS-CoV-2 IgG & IgM Ab Medications Administered Current Inpatient Medications Acetaminophen (Acetaminophen 325 Mg Tab) 650 mg PO Q4H PRN PRN Reason: Pain or Fever Stop: 04/29/21 19:09 Last Admin: 04/13/21 16:12 Dose: 650 mg Documented by: Alprazolam (Alprazolam 0.25 Mg Tablet) 0.25 mg PO Q8H PRN PRN Reason: severe anxiety Stop: 05/03/21 16:33 Last Admin: 04/15/21 04:22 Dose: 0.25 mg Documented by: Benzonatate (Benzonatate 100 Mg Capsule) 100 mg PO TID PRN PRN Reason: cough Stop: 04/29/21 20:59 Budesonide (Budesonide 0.5 Mg/2 Ml Vial (Pulmicort)) 0.5 mg NEB BIDR NELL Stop: 05/05/21 18:59 Last Admin: 04/15/21 07:23 Dose: 0.5 mg Documented by: Dextrose (Dextrose 50% 50 Ml Syringe) 25 - 50 ml IV UD PRN; Protocol PRN Reason: Hypoglycemia Protocol Stop: 04/29/21 19:09 Enoxaparin Sodium (Enoxaparin Inj 40 Mg/0.4 Ml Syr) 40 mg SQ Q24H NELL Stop: 04/29/21 19:59 Last Admin: 04/14/21 19:34 Dose: 40 mg Documented by: Fluticasone Propionate (Fluticasone Propionate Na Spr 16 Gm Btl) 2 sprays ALE DAILY [facility] Stop: 05/02/21 16:29 Last Admin: 04/15/21 08:30 Dose: 2 sprays Documented by: Glucagon (Glucagon For Inj 1 Mg Vial) 1 mg SQ UD PRN; Protocol PRN Reason: Hypoglycemia Protocol Stop: 04/29/21 19:09 Glucose (Glucose 10 Tabs/Tube) 4 - 8 tabs PO UD PRN; Protocol PRN Reason: Hypoglycemia Protocol Stop: 04/29/21 19:09 Glucose (Glucose 40% Gel 15 Gm Tube) 15 - 30 gm PO UD PRN; Protocol PRN Reason: Hypoglycemia Protocol Stop: 04/29/21 19:09 Guaifenesin/Codeine Phosphate (Guaifenesin/Codeine 200mg/20mg 10ml Udc) 10 ml PO Q6H PRN PRN Reason: Cough Stop: 05/01/21 15:45 Last Admin: 04/02/21 10:10 Dose: 10 ml Documented by: Insulin Aspart (Insulin Aspart 100 Units/Ml 3 Ml Pen) 0 units SC AC NELL Stop: 05/09/21 16:29 Last Admin: 04/15/21 09:08 Dose: 14 units Documented by: Insulin Aspart (Insulin Aspart 100 Units/Ml 3 Ml Pen) 0 units SC HS [facility] Stop: 05/13/21 20:59 Last Admin: 04/14/21 20:39 Dose: Not Given Documented by: Insulin Glargine (Insulin Glargine Solostar 100 Units/Ml 3 Ml Pen) 8 units SC QAM [facility] Stop: 05/09/21 08:59 Last Admin: 04/15/21 09:09 Dose: 8 units Documented by: Insulin Human NPH (Insulin Human Nph) [facility] Stop: 05/14/21 08:59 Last Admin: 04/15/21 09:10 Dose: 15 units Documented by: Isosorbide Mononitrate (Isosorbide [place] Extended Rel 60 Mg Tabcr) [facility] Stop: 05/10/21 08:59 Last Admin: 04/15/21 08:26 Dose: 60 mg Documented by: Levalbuterol HCl (Levalbuterol Tartrate 15 Gm Hfa.Aer.Ad) 2 puffs INH Q4R PRN PRN Reason: Shortness Of Breath Or Wheezing Stop: 04/30/21 12:49 Last Admin: 04/02/21 08:05 Dose: 2 puffs Documented by: Levalbuterol HCl (Levalbuterol Hcl 1.25 Mg/3 Ml Neb) 1.25 mg NEB Q4H PRN PRN Reason: Shortness Of Breath Or Wheezing Stop: 05/01/21 20:06 Last Admin: 04/01/21 21:54 Dose: 1.25 mg Documented by: Melatonin (Melatonin 3 Mg Tab) 3 mg PO HS PRN PRN Reason: insomnia Stop: 04/29/21 19:09 Metoprolol Succinate (Metoprolol Succ 25mg Ext Rel Tab) 12.5 mg PO TID [facility] Stop: 05/03/21 13:59 Last Admin: 04/15/21 08:27 Dose: 12.5 mg Documented by: Miscellaneous (Carbohydrates For Hypoglycemia ) 15 - 30 gm PO UD PRN PRN Reason: Hypoglycemia Protocol Stop: 04/29/21 19:09 Last Admin: 04/13/21 01:35 Dose: 15 gm Documented by: Miscellaneous Information (Pharmacy Glycemic Mgmt Consult) 1 ea N/A UD PRN PRN Reason: Consult Stop: 05/02/21 18:31 Phenol (Chloraseptic 1.4% Soln 180 Ml Btl) 1 sprays MT Q6H PRN PRN Reason: Sore Throat Stop: 05/05/21 20:58 Polyethylene Glycol (Polyethylene (Miralax) 17 Gm Pack) 17 gm PO DAILY PRN PRN Reason: Constipation Stop: 05/11/21 19:53 Prednisone (Prednisone 20 Mg Tab) 40 mg PO DAILY [facility] Stop: 05/15/21 08:59 Last Admin: 04/15/21 08:26 Dose: 40 mg Documented by: Senna/Docusate Sodium (Docusate Sodium/Senna 50/8.6mg Tab) 1 tab PO QAM [facility] Stop: 05/11/21 19:59 Last Admin: 04/15/21 08:28 Dose: 1 tab Documented by: Sertraline HCl (Sertraline Hcl 50 Mg Tablet) 50 mg PO QAM [facility] Stop: 05/10/21 08:59 Last Admin: 04/15/21 08:26 Dose: 50 mg Documented by:
--- NOTE | 2021-04-15 11:35 | Hospitalist Progress Note ---
Date of Service April 15, 2021 Assessment & Plan (1) Acute on chronic respiratory failure with hypoxia: (2) Gram-positive bacteremia: (3) Anxiety: Plan: 65-year-old female with PMH of asthma, DM, CHF, GERD, and recent ED 03/05 visit for Covid [03/05-03/25] who had fairly stayed stable on 4 to 5 L oxygen for many days prior to discharge presented again to our ED 03/30 with worsening shortness of breath. Patient had completed courses of dexamethasone and remdesivir in her prior admission and was discharged in stable condition on 4 L continuous nasal cannula oxygen. Patient is being managed for the following: #. Acute on chronic respiratory failure with hypoxia: #. History of COVID-19: #. Late phase ARDS: #. Pneumomediastinum - resolved per CXR 04/03 and 04/04 #. Bacteremia: NEUROLOGICAL: Alert, oriented, and cooperative. Cranial nerves, sensation and strength grossly intact. Pupils round, equal, and react to light, EOMs are full. -Patient presenting from home with reports of worsening shortness of breath. Recently admitted to [facility] 03/05 - 03/25 for hypoxic respiratory failure due to COVID 19 pneumonia. Completed courses of dexamethasone and remdesivir while admitted. Discharged on 4L O2 continuous. -On presentation to ED, patient in resp distress and was placed on CPAP however did not tolerate and was placed on [place] 40L 90% FiO2 - has had much improvement afterwards. -Admitting CTA negative for large PE however shows worsening consolidation and pneumomediastinum. -Procalcitonin negative, CRP 5.50 at presentation -Admitting WBC elevated, trending down -Chest imaging shows severe and constant bilateral pulmonary opacities -Pulmonology on board: Per Pulm, she has fibrotic changes in the CT scan --> hence proning would not be beneficial at this point. On Steroid for late phase ARDS (iv and INH). No indication to f/u on pneumomediastinum, resolved per 04/03 CXR. -03/30 blood culture positive for coagulase-negative staph [not lugdunensis] resistance to oxacillin/multidrug resistance -TTE on admission:-No evidence of vegetation. Patient had been afebrile. -Repeat blood culture 04/02 -ve for any growth. Vancomycin discontinued Likely contaminant -Previous provider had discussed with pulmonology and had family meeting with patient/, she has poor prognosis with regard to her lung condition. Pt made aware of her status and plan of care/prognosis 04/12 Patient currently on prednisone per Pulm #. Pulmonary hypertension: #. Pericardial effusion 04/01 echo showing EF greater than 70% with grade 1 diastolic dysfunction. RV systolic pressure severely elevated at greater than 60 mmHg. Small loculated pericardial effusion, may suggest increased chronicity/stability. No tamponade physiology on echo. Cardiology reconsulted per Pulm for possible Rt Heart Cath and awaiting further input if there is component of Rt Heart Failure/ Pulm HTN that is amenable to Rx. Discussed with patient and Food Truck Cate[employer] Dr Slaughter today. Patient will get RHC tomorrow to get heart pressures which may help with better diagnosis and treatment of pulm hypertension Dr Slaughter discussed risks and benefits with patient and she is agreeable Will hold lovenox for now. NPO PMN #. Anxiety: Clearly having difficulty coping with the situation at this point, patient has been counseled multiple times during the hospital stay. Currently on sertraline daily and prn xanax Will do hydroxyzine for today and see how that helps #. Herpes Zoster: on b/l glutes. Completed valtrex x7d on 04/08. #. Diabetes: -hgb a1c 12.4 02/2021 -Lantus/Novolog #. Hypertension Stable, Continue current medications. #. DVT prophylaxis: -SQ Lovenox Disposition: continue PCU. Patient's [[phone]] Admission and Anticipated Discharge Date Admission Date: March 30, 2021 Subjective 65-year-old woman with diabetes mellitus and other medical problems who presented with shortness of breath, was recently hospitalized from 03/05/2021 to 03/25/2021 for acute hypoxic respiratory failure due to COVID-19 and completed dexamethasone and remdesivir and discharged on 4 L of continuous oxygen. Currently being managed for acute on chronic hypoxic respiratory failure, late phase ARDS and possible pulmonary hypertension. Patient seen and examined today. Continues to report shortness of breath with minimal activity, increased anxiety. Reports cough. Denies any chest pain Review of Systems Constitutional: + fatigue and + anorexia Respiratory: + cough, + dyspnea and + dyspnea on exertion Cardiovascular: + dyspnea and + dyspnea on exertion; no palpitations and no lightheadedness Gastrointestinal: no abdominal pain, no nausea and no vomiting Genitourinary: no dysuria, no urinary frequency and no urinary urgency Neurologic: no dizziness and no headache(s) Psychiatric: + anxiety; no depression Physical Exam Constitutional: + well hydrated and + obese; no acute distress Eyes: PERRL, conjunctivae normal, anicteric sclerae ENMT: external ear and nose normal, oropharynx normal Respiratory: Mild tachypnea, on nasal cannula 4 L, crackles bilaterally Cardiovascular: RRR, S1-S2 Gastrointestinal (Abdomen): normal bowel sounds, soft, nontender, no hepatosplenomegaly Musculoskeletal: No pedal edema Neurologic: PERRL, EOMI, accommodation nl, no face palsy, no dysarthria Psychiatric: Orientation: alert and oriented x 3 Mood: + anxious mood Results & Data Results & Data ([facility]) Vital Signs (Past 12 Hours) Vital Signs Temp Pulse Pulse Resp BP Pulse Ox 04/15/21 07:30 65 04/15/21 07:23 81 16 92 04/15/21 06:52 37.0 C 80 18 138/78 96 04/15/21 03:36 37.0 C 72 19 129/78 94 04/15/21 02:00 77 Laboratory Results Abnormal lab results 04/14/21 04/15/21 04/15/21 Range/Units 20:24 07:00 11:17 BUN 21 H (7-18) mg/dl Creatinine 0.46 L (0.6-1.2) mg/dl BUN/Creatinine Ratio 46.3 H (10-20) POC Glucose 174 H 151 H (70-99) mg/dl 04/15/21 Range/Units 16:08 BUN (7-18) mg/dl Creatinine (0.6-1.2) mg/dl BUN/Creatinine Ratio (10-20) POC Glucose 133 H (70-99) mg/dl
[2021-04-15] MEDS: hydrOXYzine HCl 10 MG TAB PO SCH ×2 (14:59→21:30)
--- NOTE | 2021-04-15 16:14 | Palliative Care Consultation ---
Date of Consultation April 15, 2021 Assessment & Plan (1) Anxiety: Discussed with Dr. Bird. She was recently started on sertraline but clearly needs relief for her anxiety acutely. Very low dose alprazolam has not been effective for her. Would consider hydroxyzine for relief of her symptoms. (2) Palliative care encounter: I talked at length with Mrs. He. She has been ill for more than a month at this time and is having severe anxiety related to her illness, prognosis and general isolation due to covid restrictions. She understands that she is very ill but hopes that she would be able to improve to the point of being able to go home. We discussed her high flow oxygen needs and severe deconditioning due to prolonged illness and hospitalization. She asked me if we were going to turn off the oxygen and let her . I explained that we want to understand what is important to her and how we can guide her care moving forward to support her goals and concerns as best we can. She tells me that she would want whatever treatment necessary to help her survive and be able to return home. She would be agreeable to short term intubation if needed but would not want correction vent support or tracheostomy. She states multiple times that she is not ready to . I asked her what worries her most about dying and she tells me that she is not ready to leave her family. We will follow for support and continued goals of care discussion. (3) Acute on chronic respiratory failure with hypoxia: (4) Pneumonia due to 2019 novel coronavirus: (5) CHF (congestive heart failure): (6) Diabetes: History of Present Illness Reason for Consultation: Goals of care Requesting Physician: ZACH Smith Attending Physician: Nadine Bird MD History of Present Illness 65 yo lady with diabetes who was hosptialized with covid pneumonia from 03/05 to 03/25. She has had persistent dyspnea, and anorexia and was readmitted on 03/30 with respiratory failure. She has late stage ARDS with extensive fibrosis and pneumoperitoneum. She has continued to have severe dyspnea, even at rest and has required high flow O2. We have been consulted to assist with goals of care. Mrs. He is very anxious on my arrival and asked me what I was going to do to her. We discussed the role fo palliative care for symptom management and support to establish goals of care through her illness. She complains of having difficulty sleeping and has been having dreams of her family standing around a casket.. Allergies Allergy/AdvReac Type Severity Reaction Status Date / Time No Known Allergies Allergy Unknown Verified 03/30/21 15:10 Home Medications Medication Instructions Recorded Confirmed Type fluticasone propionate 50 1 spray INTRANASAL UD 03/04/21 03/30/21 History mcg/actuation nasal spray,suspension benzonatate 100 mg capsule 100 mg PO TID 7 Days #21 cap 03/25/21 03/30/21 Rx (Tessalon Perles) insulin NPH-regular 70-30 U-100 15 unit SUBCUT QPM #9 ml 03/25/21 03/30/21 Rx insulin 100 unit/mL subcutaneous pen (Novolin 70-30 FlexPen U-100 Insulin) insulin NPH-regular 70-30 U-100 30 unit SUBCUT DAILY #15 ml 03/25/21 03/30/21 Rx insulin 100 unit/mL subcutaneous pen (Novolin 70-30 FlexPen U-100 Insulin) melatonin 3 mg tablet 3 mg PO HS PRN 30 Days #30 tab 03/25/21 03/30/21 Rx Patient History Medical History Asthma CHF (congestive heart failure) Diabetes GERD (gastroesophageal reflux disease) No pertinent family history Surgical History No pertinent past surgical history Social History Smoking Status: Never smoker Tobacco Type: Cigarettes Hx Alcohol Use: No Hx Substance Use: No Preferred Language: Divehi Communication Ability: Effective Call Center Team Leader Required: No Beliefs That Will Affect Care: None Current Living Situation: Spouse and Family Other Information That Helps Us Care for You: No Feels Safe at Home: Yes Safety Concerns: Feels Safe At This Time Assistive Devices: Glasses and Oxygen - Continuous Review of Systems Review of Systems: [place] Symptom Assessment Scale Pain 0/3 Dyspnea 3/3 Anxiety 3/3 Fatigue 2/3 Nausea 0/3 Drowsiness 0/3 Physical Exam Constitutional: + ill appearing and + obese Respiratory: + labored breathing and + uses accessory muscles Cardiovascular: Extremities: + edema Musculoskeletal: Extremities: extremities normal to inspection Neurologic: awake; not confused Psychiatric: Affect: + anxious affect and mood congruent with affect Results & Data ([facility]) Vital Signs (Past 12 Hours) Vital Signs Temp Pulse Pulse Pulse Resp BP BP 04/15/21 15:04 97.5 F L 86 24 113/74 04/15/21 11:30 04/15/21 11:15 97.5 F L 71 24 146/78 H 04/15/21 07:30 65 04/15/21 07:23 81 16 04/15/21 06:52 98.6 F 80 18 138/78 Pulse Ox 04/15/21 15:04 93 04/15/21 11:30 90 04/15/21 11:15 93 04/15/21 07:30 04/15/21 07:23 92 04/15/21 06:52 96 PG Care Time/CCT Total # of Minutes Spent Total Time Spent: 80 Total Time Spent with Patient: Total time spent is greater than 50% in coordination of care (as documented) at patient's floor/unit and/or counseling patient:goals of care, symptom management, patient education and support Coding Level of Care Code 99339 Initial Inpt Care Lvl 3 Diagnoses Anxiety F41.9 Palliative care encounter Z51.5 Acute on chronic respiratory failure with hypoxia J96.21 Pneumonia due to 2019 novel coronavirus U07.1; J12.82 CHF (congestive heart failure) I50.9 Diabetes E11.9
[2021-04-16] MEDS: SODIUM CHLORIDE 0.9% 1000ML 1,000 ML IV SCH ×2 (00:15→12:01)
[2021-04-16] MEDS: CARBOHYDRATES FOR HYPOGLYCEMIA PO PRN (02:08)
[2021-04-16] MEDS: ALPRAZolam 0.25 MG TABLET PO PRN ×2 (06:18→18:54)
[2021-04-16 06:39] LABS: Hematocrit (blood only) 34.6 % (37-47); Hemoglobin 11.2 g/dL (12.0-16.0); Mean Corpuscular Hemoglobin 29.6 pg (25-34); Mean Corpuscular Hgb Conc 32.4 g/dL (32-36); Mean Corpuscular Volume 91.5 fL (80-100); Mean Platelet Volume 9.5 fL (7.4-10.4); Platelet Count 447 K/uL (130-400); RDW Standard Deviation 52.8 fL (36.4-46.3); Red Blood Count 3.78 M/uL (4.2-5.4); White Blood Count 21.42 K/uL (4.8-10.8)
[2021-04-16 07:16] LABS: BUN Creatinine Ratio 41.1 (10-20); Calcium 8.8 mg/dl (8.5-10.1); Creatinine Clr Calc Pharmacy 125.1 ml/min; Est GFR (African American) 119.3 ml/min; Est GFR (Non-African American) 102.9 ml/min; Potassium 3.9 mmol/L (3.5-5.1)
[2021-04-16] MEDS: BUDESONIDE 0.5 MG/2 ML VIAL (PULMICORT) NEB SCH ×2 (07:19→19:24)
[2021-04-16] MEDS: FLUTICASONE PROPIONATE NA SPR 16 GM BTL NAE SCH (07:52)
[2021-04-16] MEDS: SERTRALINE HCL 50 MG TABLET PO SCH (07:53)
[2021-04-16] MEDS: predniSONE 20 MG TAB PO SCH (07:54)
[2021-04-16] MEDS: METOPROLOL SUCC 25MG EXT REL TAB PO SCH ×3 (07:55→21:10)
[2021-04-16] MEDS: ISOSORBIDE MONO EXTENDED REL 60 MG TABCR PO SCH (07:55)
[2021-04-16] MEDS: hydrOXYzine HCl 10 MG TAB PO SCH ×2 (07:56→13:16)
[2021-04-16] MEDS: DOCUSATE SODIUM/SENNA 50/8.6MG TAB PO SCH (07:56)
[2021-04-16] MEDS: INSULIN ASPART 100 UNITS/ML 3 ML PEN SC SCH ×3 (08:01→18:03)
--- NOTE | 2021-04-16 08:45 | Hospitalist Progress Note ---
Date of Service April 16, 2021 Assessment & Plan (1) Acute on chronic respiratory failure with hypoxia: (2) Gram-positive bacteremia: (3) Anxiety: Plan: 65-year-old female with PMH of asthma, DM, CHF, GERD, and recent ED 03/05 visit for Covid [03/05-03/25] who had fairly stayed stable on 4 to 5 L oxygen for many days prior to discharge presented again to our ED 03/30 with worsening shortness of breath. Patient had completed courses of dexamethasone and remdesivir in her prior admission and was discharged in stable condition on 4 L continuous nasal cannula oxygen. Patient is being managed for the following: #. Acute on chronic respiratory failure with hypoxia: #. History of COVID-19: #. Late phase ARDS: #. Pneumomediastinum - resolved per CXR 04/03 and 04/04 #. Bacteremia: NEUROLOGICAL: Alert, oriented, and cooperative. Cranial nerves, sensation and strength grossly intact. Pupils round, equal, and react to light, EOMs are full. -Patient presenting from home with reports of worsening shortness of breath. Recently admitted to [facility] 03/05 - 03/25 for hypoxic respiratory failure due to COVID 19 pneumonia. Completed courses of dexamethasone and remdesivir while admitted. Discharged on 4L O2 continuous. -On presentation to ED, patient in resp distress and was placed on CPAP however did not tolerate and was placed on [place] 40L 90% FiO2 - has had much improvement afterwards. -Admitting CTA negative for large PE however shows worsening consolidation and pneumomediastinum. -Procalcitonin negative, CRP 5.50 at presentation -Admitting WBC elevated, trending down -Chest imaging shows severe and constant bilateral pulmonary opacities -Pulmonology on board: Per Pulm, she has fibrotic changes in the CT scan --> hence proning would not be beneficial at this point. On Steroid for late phase ARDS (iv and INH). No indication to f/u on pneumomediastinum, resolved per 04/03 CXR. -03/30 blood culture positive for coagulase-negative staph [not lugdunensis] resistance to oxacillin/multidrug resistance -TTE on admission:-No evidence of vegetation. Patient had been afebrile. -Repeat blood culture 04/02 -ve for any growth. Vancomycin discontinued Likely contaminant -Previous provider had discussed with pulmonology and had family meeting with patient/, she has poor prognosis with regard to her lung condition. Pt made aware of her status and plan of care/prognosis 04/12 Patient currently on prednisone per Pulm Palliative on board #. Pulmonary hypertension: #. Pericardial effusion 04/01 echo showing EF greater than 70% with grade 1 diastolic dysfunction. RV systolic pressure severely elevated at greater than 60 mmHg. Small loculated pericardial effusion, may suggest increased chronicity/stabili ty. No tamponade physiology on echo. Cardiology reconsulted per Pulm for possible Rt Heart Cath and awaiting further input if there is component of Rt Heart Failure/ Pulm HTN that is amenable to Rx. Patient getting RHC today Will follow up results and follow up with Pulm about subsequent plans #. Anxiety: Clearly having difficulty coping with the situation at this point, patient has been counseled multiple times during the hospital stay. Currently on sertraline daily and prn xanax #. Herpes Zoster: on b/l glutes. Completed valtrex x7d on 04/08. #. Diabetes: -hgb a1c 12.4 02/2021 -Lantus/Novolog #. Hypertension Stable, Continue current medications. #. DVT prophylaxis: -SQ Lovenox Disposition: continue PCU. Patient's [[phone]] Admission and Anticipated Discharge Date Admission Date: March 30, 2021 Subjective 65-year-old woman with diabetes mellitus and other medical problems who presented with shortness of breath, was recently hospitalized from 03/05/2021 to 03/25/2021 for acute hypoxic respiratory failure due to COVID-19 and completed dexamethasone and remdesivir and discharged on 4 L of continuous oxygen. Currently being managed for acute on chronic hypoxic respiratory failure, late phase ARDS and possible pulmonary hypertension. Patient seen and examined this morning. Continues to report shortness of breath with minimal activity Reports cough, mostly dry Denies any chest pain Review of Systems Constitutional: + fatigue and + anorexia Respiratory: + cough, + dyspnea and + dyspnea on exertion Cardiovascular: + dyspnea and + dyspnea on exertion; no palpitations and no lightheadedness Gastrointestinal: no abdominal pain, no nausea and no vomiting Genitourinary: no dysuria, no urinary frequency and no urinary urgency Neurologic: no dizziness and no headache(s) Psychiatric: + anxiety; no depression Physical Exam Constitutional: + well hydrated and + obese; no acute distress Eyes: PERRL, conjunctivae normal, anicteric sclerae ENMT: external ear and nose normal, oropharynx normal Respiratory: Not in respiratory distress, on nasal oxygen, basilar crackles Gastrointestinal (Abdomen): normal bowel sounds, soft, nontender, no hepatosplenomegaly Musculoskeletal: No pedal edema Neurologic: PERRL, EOMI, accommodation nl, no face palsy, no dysarthria Psychiatric: Orientation: alert and oriented x 3 Results & Data Results & Data ([facility]) Vital Signs (Past 12 Hours) Vital Signs Temp Pulse Resp BP Pulse Ox 04/16/21 07:42 36.4 C L 67 19 130/79 90 04/16/21 07:20 75 18 88 L 04/16/21 04:37 36.5 C 86 20 118/72 88 L 04/15/21 23:26 36.5 C 77 19 110/70 94 04/15/21 21:29 79 114/75 Laboratory Results Abnormal lab results 04/15/21 04/16/21 04/16/21 Range/Units 16:08 02:05 06:21 WBC 21.42 H (4.8-10.8) K/uL RBC 3.78 L (4.2-5.4) M/uL Hgb 11.2 L (12.0-16.0) g/dL Hct 34.6 L (37-47) % RDW Std Deviation 52.8 H (36.4-46.3) fL RDW Coeff of Ralf 16.0 H (11.5-14.5) % Plt Count 447 H (130-400) K/uL POC pCO2 (35-46) mmHg POC pO2 (80-95) mmHg POC HCO3 (19-24) tomy/L POC Total CO2 (24-31) mmol/L POC Base Excess (-9-1.8) tomy/L POC ABG O2 Sat (90-95) % BUN (7-18) mg/dl Creatinine (0.6-1.2) mg/dl BUN/Creatinine Ratio (10-20) POC Glucose 133 H 60 L* (70-99) mg/dl 04/16/21 04/16/21 04/16/21 Range/Units 06:21 09:47 11:16 WBC (4.8-10.8) K/uL RBC (4.2-5.4) M/uL Hgb (12.0-16.0) g/dL Hct (37-47) % RDW Std Deviation (36.4-46.3) fL RDW Coeff of Ralf (11.5-14.5) % Plt Count (130-400) K/uL POC pCO2 48 H (35-46) mmHg POC pO2 < 32 L (80-95) mmHg POC HCO3 32 H (19-24) tomy/L POC Total CO2 33 H (24-31) mmol/L POC Base Excess 8.0 H (-9-1.8) tomy/L POC ABG O2 Sat 59.0 L (90-95) % BUN 20 H (7-18) mg/dl Creatinine 0.48 L (0.6-1.2) mg/dl BUN/Creatinine Ratio 41.1 H (10-20) POC Glucose 163 H (70-99) mg/dl
[2021-04-16 10:00] LABS: iSTAT Arterial Blood Gas HCO3 32 meg/L (19-24); iSTAT Arterial Blood Gas pCO2 48 mmHg (35-46); iSTAT Arterial Blood Gas pH 7.43 (7.35-7.45); iSTAT Arterial Blood Gas pO2 < 32 mmHg (80-95); iSTAT Carbon Dioxide 33 mmol/L (24-31)
--- NOTE | 2021-04-16 10:07 | Cardiac Catheterization ---
Date of Service April 16, 2021 Cardiac Cath Report Cardiac Cath Report Procedure: 1. Right heart catheterization History: This is a 65-year-old female who has had a prolonged course of Covid pneumonia with sustained hypoxia and evidence of pulmonary hypertension on a resting echocardiogram. We have been asked to perform a right heart catheterization to document pulmonary hypertension as well as to exclude possible left heart failure. Procedure summary: After informed consent was obtained the patient was taken to the cardiac catheterization lab where access was obtained using a retrograde Salinger technique from the right femoral vein. A [place] catheter was advanced under fluoroscopy through the right heart to the pulmonary artery and wedge position. Pulmonary artery oxygen saturation was obtained. Cardiac output by thermal dilution. The patient was then returned to her room in stable condition. Hemodynamic data: Right atrial pressure is a mean of 6 mmHg Right ventricular pressure 50/9 mmHg Pulmonary artery pressure 47/17 mmHg Pulmonary capillary wedge pressure mean 11 mmHg Pulmonary artery oxygen saturation 59% Pulmonary vascular resistance 380 Cardiac output by thermal dilution 3.78 L/min Total fluoroscopy time 1.5 minutes Radiation 93 mGy DAP 9.5 [place] per centimeter squared Summary: The patient has moderate pulmonary hypertension with a normal pulmonary capillary wedge pressure.
[2021-04-16] MEDS ORDERED: INSULIN HUMAN NPH SC ONE (12:15)
[2021-04-16] MEDS: ACETAMINOPHEN 325 MG TAB PO PRN (12:31)
--- NOTE | 2021-04-16 14:29 | Pharmacy Report ---
Pharmacy Glycemic Short Note 2 - Date of Service April 16, 2021 - Glycemic Short BSG Results (Last 24 hours): 04/15/21 04/15/21 04/15/21 16:08 20:22 21:37 Glucose POC Glucose 133 H 72 85 04/16/21 04/16/21 04/16/21 02:05 02:24 06:21 Glucose 97 POC Glucose 60 L* 76 04/16/21 04/16/21 07:06 11:16 Glucose POC Glucose 89 163 H OUTPATIENT ANTIDIABETIC REGIMEN: * Novolin 70/30 30qAM and 15 PM * A1c 12.4% 03/05/21 ASSESSMENT: 04/16: * Patient received total of 79 units of insulin yesterday, of which 8 units were Lantus and 15 units were NPH to cover PO pred 40 mg * BSGs trending down overnight, could be related to change in steroids from DXM to prednisone * Fasting BSG 89 mg/dL - held AM long acting insulin as patient NPO. Lunch BSG 163 mg/dL and diet resume, will d/c basal insulin and decrease NPH dose today for steroids 04/13: * BSGs yesterday of 52, 74, 262, 171, and 168 mg/dL * Received 55 units of insulin (10 units of Lantus, 15 units of NPH, and 30 units of Novolog) * Another low BSG noted overnight (62 mg/dL) * IV dexamethasone given at 0346 this morning so will not consider AM BSG of 175 mg/dL a true fasting BSG * Plan to maintain NPH with tightened Novolog with meals to help with elevated prandial BSGs * Will decrease Lantus and remove HS Novolog to decrease likelihood of overnight hypoglycemia 04/11: * Pt was hypoglycemic early this AM. Fasting BSG = 69 mg/dl. * Post prandial BSGs at goal except for dinner BSG higher than 200 mg/dl yesterday. Continued basal insulin dosing the same today since pt continues to be on Dex 6 mg IV daily. * To prevent hypoglycemia in the AM, loosened HS carb ratio. Pt usually has a snack at HS. Background * Patient currently on high dose steroids, dexamethasone 20 mg IV (day 4/5), and will taper down to 10 mg on 04/05 * BSGs elevated likely d/t steroid, patient received 118 units of insulin yesterday, 46 of which were basal * Novolog parameters and lantus increased yesterday, BSGs have trended down with these changes, will continue same for now * Consider adding NPH with dexamethasone if BSGs continue to be elevated, held off for today as patient trended down overnight and BSGs have been acceptable so far today (all <180 mg/dL) PLAN FOR INPATIENT GLYCEMIC CONTROL: * Hold outpatient oral diabetes medications * Basal insulin - decrease * NPH 8 units x 1 with po Pred 40 mg today * Bolus insulin * NovoLog per scale AC or Q6hrs while NPO * Goal Range: Low 110 mg/dL - High 140 mg/dL * Correction Factor: 15 mg/dL/unit * Nutritional / Prandial insulin per carb ratio of 1 unit per 4 grams CHO consumed * No insulin coverage at HS Discharge Recommendations * Patient's HbA1C is above goal range (currently goal would be <8% while current HbA1C is 12.4%) * Patient's outpatient regimen JUST started after last admission so has not had time to be evaluated yet. * Please resume outpatient regimen and re-evaluate in 1 month's time.
--- NOTE | 2021-04-16 17:54 | Pulmonology Progress Note ---
Date of Service April 16, 2021 Assessment & Plan (1) ARDS survivor: (2) Pulmonary hypertension: (3) Acute on chronic respiratory failure with hypoxia: (4) History of COVID-19: (5) Pneumomediastinum: (6) Pericardial effusion: Plan: 65-year-old female with a past medical history of asthma who is currently hospitalized due to prolonged recovery from COVID-19 viral pneumonia. On 04/18/2021 the patient underwent an echocardiogram which demonstrated an EF of 70%, grade 1 diastolic dysfunction, moderate aortic valve sclerosis and an elevated RVSP of 60 mmHg. I requested that cardiology perform a right heart catheterization due to concern of pulmonary hypertension related to fibrotic lung disease. Dr. Slaughter kindly performed a right heart catheterization. She was found to have mild to moderate precapillary pulmonary hypertension with a mean pulmonary artery pressure of 27 mmHg. PCWP of 11 mmHg. Pulmonary vascular resistance of 4.75 Tyson units. 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 She continues to be severely hypoxic with minimal exertion such as walking 10feet. For instance, today, she walked (under my supervision) approximately 10 feet while on 5 L of oxygen desaturated to 75%. I had a lengthy discussion with the patient regarding outpatient rehab and referral to a pulmonary hypertension center. While in the hospital, I am going to start her on sildenafil 10 mg 3 times daily. We will need to use caution as she is currently on Imdur as this can drop her blood pressure. I suspect that she has WHO group 3 pulmonary hypertension due to chronic hypoxemia and essentially interstitial lung disease related to ARDS/postinflammatory Covid viral pneumonia. She did undergo a chest CTA on 03/30/2021 which did not reveal central pulmonary emboli, but the study was very poor due to motion artifact. More distal vessels cannot be evaluated. I do not believe that this study is sufficient to rule out chronic thromboembolic pulmonary hypertension. She should undergo a ventilation/perfusion scan. Will discuss with radiology about having her undergo ventilation/perfusion scan. Currently, ventilation studies are not being performed due to the COVID-19 pandemic. Lastly, she may potentially be a candidate for lung transplantation if she does not have a significant recovery from her Covid illness in the next 2 to 3 months. She is too soon out of her acute illness, severely deconditioned and obese for lung transplantation at this time. Although, it would be up to a lung transplant team to truly make that judgment. Continue to wean her oxygen to maintain saturations above 90%. Hypoxemia is a very potent pulmonary artery vasoconstrictor. Continue to maintain euvolemia. Case management will need to be consulted with regards to making sure that she is approved for sildenafil as an outpatient. Thank you for the consult. Pulmonary continue to follow along with you. Admission and Anticipated Discharge Date Admission Date: March 30, 2021 Subjective Patient seen and examined. She continues to have dyspnea with minimal exertion. She has been minimally active today. Mostly lying in bed. She has significant anxiety. She denies any chest pain. She does have a nonproductive cough. Review of Systems Review of Systems: All systems reviewed & are unremarkable except as noted in HPI & below Physical Exam Physical Exam: GENERAL : Moderate distress EYES: No icterus, gaze conjugate NOSE: No evidence of epistaxis. Nasal cannula is in place MOUTH: No lesions or candidiasis. Mucosa is moist NECK: Supple LUNGS: Decreased breath sounds throughout. No overt rales or rhonchi. No appreciation of bronchospasm. HEART: Regular, rate controlled. No murmurs gallops or rubs appreciated. ABDOMEN: Soft, NT, ND, BS Present EXTREMITIES: Trace LE edema, pedal pulses intact and equal bilaterally. NEURO: A&OX3. . Results & Data Results & Data ([facility]) Vital Signs (Past 12 Hours) Vital Signs Temp Pulse Resp BP Pulse Ox 04/16/21 14:52 97.3 F L 91 H 19 138/79 90 04/16/21 11:48 69 18 100/66 93 04/16/21 11:33 69 18 104/65 94 04/16/21 11:18 70 18 99/65 L 94 04/16/21 11:03 75 18 95/59 L 93 04/16/21 10:59 97.5 F L 74 18 95/60 L 91 04/16/21 10:48 72 18 93/58 L 94 04/16/21 10:33 73 18 96/59 L 91 04/16/21 10:18 66 18 99/54 L 92 04/16/21 07:42 97.5 F L 67 19 130/79 90 10/28/21 07:20 75 18 88 L vital signs, labs and imaging reviewed PG Care Time/CCT Total # of Minutes Spent Total Time Spent with Patient: Total time spent is greater than 50% in coordination of care (as documented) at patient's floor/unit and/or counseling patient: Coding Level of Care Code 41120 Subseq Hosp Care Lvl 3 Diagnoses Acute on chronic respiratory failure with hypoxia J96.21 History of COVID-19 Z86.16 Pneumomediastinum J98.2 Pericardial effusion I31.3 ARDS survivor Z87.09 Pulmonary hypertension I27.20 Time Spent (min) 74
[2021-04-17] MEDS: INSULIN ASPART 100 UNITS/ML 3 ML PEN SC SCH ×5 (05:08→20:51)
[2021-04-17 06:07] LABS: Hematocrit (blood only) 35.3 % (37-47); Mean Corpuscular Hemoglobin 29.3 pg (25-34); Mean Corpuscular Hgb Conc 31.2 g/dL (32-36); Mean Corpuscular Volume 94.1 fL (80-100); Mean Platelet Volume 9.7 fL (7.4-10.4); Platelet Count 421 K/uL (130-400); RDW Coefficient of Variation 16.1 % (11.5-14.5); RDW Standard Deviation 55.1 fL (36.4-46.3); Red Blood Count 3.75 M/uL (4.2-5.4); White Blood Count 17.84 K/uL (4.8-10.8)
[2021-04-17 06:42] LABS: BUN Creatinine Ratio 48.8 (10-20); Calcium 8.4 mg/dl (8.5-10.1); Est GFR (African American) 116.2 ml/min; Est GFR (Non-African American) 100.3 ml/min; Potassium 3.9 mmol/L (3.5-5.1)
[2021-04-17] MEDS: BUDESONIDE 0.5 MG/2 ML VIAL (PULMICORT) NEB SCH ×2 (07:20→19:26)
[2021-04-17] MEDS: METOPROLOL SUCC 25MG EXT REL TAB PO SCH ×3 (08:46→20:47)
[2021-04-17] MEDS: SERTRALINE HCL 50 MG TABLET PO SCH (08:47)
[2021-04-17] MEDS: predniSONE 20 MG TAB PO SCH (08:47)
[2021-04-17] MEDS: DOCUSATE SODIUM/SENNA 50/8.6MG TAB PO SCH (08:47)
[2021-04-17] MEDS: SILDENAFIL CITRATE 20 MG TABLET PO SCH ×3 (08:48→20:47)
[2021-04-17] MEDS: ALPRAZolam 0.25 MG TABLET PO PRN ×2 (08:50→16:57)
[2021-04-17] MEDS: FLUTICASONE PROPIONATE NA SPR 16 GM BTL NAE SCH (08:56)
[2021-04-17] MEDS ORDERED: INSULIN HUMAN NPH SC SCH ×2 (09:00)
--- NOTE | 2021-04-17 12:27 | Internal Med Progress Note ---
Date of Service April 17, 2021 Assessment & Plan (1) Acute on chronic respiratory failure with hypoxia: (2) Gram-positive bacteremia: (3) Anxiety: Plan: 65-year-old female with PMH of asthma, DM, CHF, GERD, and recent ED 03/05 visit for Covid [03/05-03/25] who had fairly stayed stable on 4 to 5 L oxygen for many days prior to discharge presented again to our ED 03/30 with worsening shortness of breath. Patient had completed courses of dexamethasone and remdesivir in her prior admission and was discharged in stable condition on 4 L continuous nasal cannula oxygen. Patient is being managed for the following: #. Acute on chronic respiratory failure with hypoxia: #. History of COVID-19: #. Late phase ARDS: #. Pneumomediastinum - resolved per CXR 04/03 and 04/04 #. Bacteremia: NEUROLOGICAL: Alert, oriented, and cooperative. Cranial nerves, sensation and strength grossly intact. Pupils round, equal, and react to light, EOMs are full. -Patient presenting from home with reports of worsening shortness of breath. Recently admitted to [facility] 03/05 - 03/25 for hypoxic respiratory failure due to COVID 19 pneumonia. Completed courses of dexamethasone and remdesivir while admitted. Discharged on 4L O2 continuous. -On presentation to ED, patient in resp distress and was placed on CPAP however did not tolerate and was placed on [place] 40L 90% FiO2 - has had much improvement afterwards. -Admitting CTA negative for large PE however shows worsening consolidation and pneumomediastinum. -Procalcitonin negative, CRP 5.50 at presentation -Admitting WBC elevated, trending down -Chest imaging shows severe and constant bilateral pulmonary opacities -Pulmonology on board: Per Pulm, she has fibrotic changes in the CT scan --> hence proning would not be beneficial at this point. On Steroid for late phase ARDS (iv and INH). No indication to f/u on pneumomediastinum, resolved per 04/03 CXR. -03/30 blood culture positive for coagulase-negative staph [not lugdunensis] resistance to oxacillin/multidrug resistance -TTE on admission:-No evidence of vegetation. Patient had been afebrile. -Repeat blood culture 04/02 -ve for any growth. Vancomycin discontinued Likely contaminant Currently on prednisone. Discussed with Pulmonology. Will taper #. Pulmonary hypertension: #. Pericardial effusion 04/01 echo showing EF greater than 70% with grade 1 diastolic dysfunction. RV systolic pressure severely elevated at greater than 60 mmHg. Small loculated pericardial effusion, may suggest increased chronicity/stability. No tamponade physiology on echo. Had a right heart cath 04/16/2021 which showed mild to moderate precapillary pulmonary hypertension with a mean pulmonary artery pressure of 27 mmHg. PCWP of 11 mmHg. Pulmonary vascular resistance of 4.75 Tyson units. Started on sildenafil per pulm. Imdur discontinued for now #. Anxiety: Clearly having difficulty coping with the situation at this point, patient has been counseled multiple times during the hospital stay. Provided extensive counselling as well Currently on sertraline daily and prn xanax. Anxiety is better today #. Herpes Zoster: on b/l glutes. Completed valtrex x7d on 04/08. #. Diabetes: -hgb a1c 12.4 02/2021 -Lantus/Novolog #. Hypertension Stable, Continue current medications. #. DVT prophylaxis: -SQ Lovenox Disposition: continue PCU. Patient's [[phone]] called and updated Admission and Anticipated Discharge Date Admission Date: March 30, 2021 Subjective 65-year-old woman with diabetes mellitus and other medical problems who presented with shortness of breath, was recently hospitalized from 03/05/2021 to 03/25/2021 for acute hypoxic respiratory failure due to COVID-19 and completed dexamethasone and remdesivir and discharged on 4 L of continuous oxygen. Currently being managed for acute on chronic hypoxic respiratory failure, late phase ARDS and possible pulmonary hypertension. Had a right heart cath 04/16/2021 which showed mild to moderate precapillary pulmonary hypertension with a mean pulmonary artery pressure of 27 mmHg. PCWP of 11 mmHg. Pulmonary vascular resistance of 4.75 Tyson units. Patient seen and examined today Continues to report shortness of breath with minimal activity Reports cough, mostly dry Denies any chest pain Reports she is feeling slightly better today overall Review of Systems Constitutional: + fatigue Respiratory: + cough, + dyspnea and + dyspnea on exertion Cardiovascular: + dyspnea and + dyspnea on exertion; no palpitations and no lightheadedness Gastrointestinal: no abdominal pain, no nausea and no vomiting Genitourinary: no dysuria, no urinary frequency and no urinary urgency Neurologic: no dizziness and no headache(s) Psychiatric: + anxiety; no depression Physical Exam Constitutional: + well hydrated and + obese; no acute distress Eyes: PERRL, conjunctivae normal, anicteric sclerae ENMT: external ear and nose normal, oropharynx normal Respiratory: On 6 L/min of nasal cannula, not in respiratory distress, diminished breath sounds bilaterally Cardiovascular: RRR, S1-S2 Gastrointestinal (Abdomen): normal bowel sounds, soft, nontender, no hepatosplenomegaly Musculoskeletal: No pedal edema Neurologic: PERRL, EOMI, accommodation nl, no face palsy, no dysarthria Psychiatric: A+Ox3, euthymic affect Results & Data ([facility]) Vital Signs (Past 12 Hours) Vital Signs Temp Pulse Resp BP Pulse Ox Pulse Ox 04/17/21 11:57 36.3 C L 86 22 111/73 90 04/17/21 08:14 36.8 C 75 20 104/76 91 04/17/21 08:00 91 04/17/21 07:20 71 20 91 04/17/21 03:32 36.7 C 70 19 144/83 H 92 Laboratory Results Abnormal lab results 04/16/21 04/17/21 04/17/21 Range/Units 20:33 05:35 05:35 WBC 17.84 H (4.8-10.8) K/uL RBC 3.75 L (4.2-5.4) M/uL Hgb 11.0 L (12.0-16.0) g/dL Hct 35.3 L (37-47) % MCHC 31.2 L (32-36) g/dL RDW Std Deviation 55.1 H (36.4-46.3) fL RDW Coeff of Ralf 16.1 H (11.5-14.5) % Plt Count 421 H (130-400) K/uL BUN 26 H (7-18) mg/dl Creatinine 0.52 L (0.6-1.2) mg/dl BUN/Creatinine Ratio 48.8 H (10-20) POC Glucose 209 H (70-99) mg/dl Calcium 8.4 L (8.5-10.1) mg/dl 10/29/21 10/29/21 10/29/21 Range/Units 07:33 11:25 16:08 WBC (4.8-10.8) K/uL RBC (4.2-5.4) M/uL Hgb (12.0-16.0) g/dL Hct (37-47) % MCHC (32-36) g/dL RDW Std Deviation (36.4-46.3) fL RDW Coeff of Ralf (11.5-14.5) % Plt Count (130-400) K/uL BUN (7-18) mg/dl Creatinine (0.6-1.2) mg/dl BUN/Creatinine Ratio (10-20) POC Glucose 104 H 217 H 68 L* (70-99) mg/dl Calcium (8.5-10.1) mg/dl
--- NOTE | 2021-04-17 12:39 | Pharmacy Report ---
Pharmacy Glycemic Short Note 2 - Date of Service April 17, 2021 - Glycemic Short BSG Results (Last 24 hours): 04/16/21 04/16/21 04/16/21 14:55 16:12 20:33 Glucose POC Glucose 276 H 229 H 209 H 04/17/21 04/17/21 04/17/21 05:35 07:33 11:25 Glucose 85 POC Glucose 104 H 217 H OUTPATIENT ANTIDIABETIC REGIMEN: * Novolin 70/30 30qAM and 15 PM * A1c 12.4% 03/05/21 ASSESSMENT: 04/17: * BSGs increased throughout the day yesterday, 89, 163, 229, and 209 mg/dL * Likely related to delayed NPH in light of NPO status in AM * Continues on prednisone 40 mg PO daily, increased NPH today (given at 1132) * Will not overreact to lunchtime BSG of 217 mg/dL due to late NPH * Will tighten Novolog carb coverage back to 3 04/16: * Patient received total of 79 units of insulin yesterday, of which 8 units were Lantus and 15 units were NPH to cover PO pred 40 mg * BSGs trending down overnight, could be related to change in steroids from DXM to prednisone * Fasting BSG 89 mg/dL - held AM long acting insulin as patient NPO. Lunch BSG 163 mg/dL and diet resume, will d/c basal insulin and decrease NPH dose today for steroids Background * Patient currently on high dose steroids, dexamethasone 20 mg IV (day 4/5), and will taper down to 10 mg on 04/05 * BSGs elevated likely d/t steroid, patient received 118 units of insulin yesterday, 46 of which were basal * Novolog parameters and lantus increased yesterday, BSGs have trended down with these changes, will continue same for now * Consider adding NPH with dexamethasone if BSGs continue to be elevated, held off for today as patient trended down overnight and BSGs have been acceptable so far today (all <180 mg/dL) PLAN FOR INPATIENT GLYCEMIC CONTROL: * Hold outpatient oral diabetes medications * Basal insulin - increase NPH * NPH 12 units x 1 with PO prednisone 40 mg daily * Bolus insulin - tighten carb coverage * NovoLog per scale AC or Q6hrs while NPO * Goal Range: Low 110 mg/dL - High 140 mg/dL * Correction Factor: 15 mg/dL/unit * Nutritional / Prandial insulin per carb ratio of 1 unit per 3 grams CHO consumed * No insulin coverage at HS Discharge Recommendations * Patient's HbA1C is above goal range (currently goal would be <8% while current HbA1C is 12.4%) * Patient's outpatient regimen JUST started after last admission so has not had time to be evaluated yet. * Please resume outpatient regimen and re-evaluate in 1 month's time.
--- NOTE | 2021-04-17 17:21 | Pulmonology Progress Note ---
Date of Service April 17, 2021 Assessment & Plan (1) ARDS survivor: (2) Pulmonary hypertension: (3) Acute on chronic respiratory failure with hypoxia: (4) History of COVID-19: (5) Pneumomediastinum: (6) Pericardial effusion: (7) Obstructive sleep apnea: Plan: 65-year-old female with a past medical history of asthma who is currently hospitalized due to prolonged recovery from COVID-19 viral pneumonia. 04/18/2021, the patient underwent an echocardiogram which demonstrated an EF of 70%, grade 1 diastolic dysfunction, moderate aortic valve sclerosis and an elevated RVSP of 60 mmHg. I requested that cardiology perform a right heart catheterization due to concern of pulmonary hypertension related to fibrotic lung disease. Dr. Slaughter kindly performed a right heart catheterization. She was found to have mild to moderate precapillary pulmonary hypertension with a mean pulmonary artery pressure of 27 mmHg. PCWP of 11 mmHg. Pulmonary vascular resistance of 4.75 Tyson units. 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 She has WHO group 3 pulmonary hypertension due to chronic hypoxemia and essentially interstitial lung disease related to ARDS/postinflammatory Covid viral pneumonia. She did undergo a chest CTA on 03/30/2021 which did not reveal central pulmonary emboli, but the study was very poor due to motion artifact. More distal vessels cannot be evaluated. I do not believe that this study is sufficient to rule out chronic thromboembolic pulmonary hypertension. She should undergo a ventilation/perfusion scan. This can be pursued on an outpatient basis. She also has a history of obstructive sleep apnea and is noncompliant with CPAP therapy which can worsen her underlying pulmonary hypertension. She relates that she thinks that she had pulmonary hypertension for longer than we realize given that she has had dyspnea for the past 1 year. She will need an updated outpatient sleep study. If she continues to tolerate sildenafil 10 mg 3 times daily today, then I will increase her to 20 mg 3 times daily. She should follow-up in pulmonary rehab as an outpatient. Admission and Anticipated Discharge Date Admission Date: March 30, 2021 Subjective Patient seen and examined. Patient's and mother were at bedside. She reports that her spirits are better today. She is slightly less short of breath than she was yesterday. She has been sitting up in a chair for most of the day and walked around a little bit in her room. She is currently on 6 L of oxygen and saturating 95%. Review of Systems Review of Systems: All systems reviewed & are unremarkable except as noted in HPI & below Physical Exam Physical Exam: GENERAL : No significant distress. EYES: No icterus, gaze conjugate NOSE: No evidence of epistaxis. Nasal cannula is in place MOUTH: No lesions or candidiasis. Mucosa is moist NECK: Supple LUNGS: Decreased lung sounds throughout. Inspiratory Velcro crackles noted in bilateral lung skinner. HEART: Regular, rate controlled. No murmurs gallops or rubs appreciated. ABDOMEN: Soft, NT, ND, BS Present EXTREMITIES: Trace LE edema, pedal pulses intact and equal bilaterally. NEURO: A&OX3. . Results & Data Results & Data ([facility]) Vital Signs (Past 12 Hours) Vital Signs Temp Pulse Pulse Resp BP Pulse Ox Pulse Ox 04/17/21 15:50 98.1 F 72 23 142/80 H 95 04/17/21 11:57 97.3 F L 86 22 111/73 90 04/17/21 08:14 98.2 F 75 20 104/76 91 04/17/21 08:00 91 04/17/21 07:20 71 20 91 Vital signs, labs and imaging personally reviewed PG Care Time/CCT Total # of Minutes Spent Total Time Spent with Patient: Total time spent is greater than 50% in coordination of care (as documented) at patient's floor/unit and/or counseling patient: Coding Level of Care Code 01201 Subseq Hosp Care Lvl 2 Diagnoses ARDS survivor Z87.09 Pulmonary hypertension I27.20 Acute on chronic respiratory failure with hypoxia J96.21 History of COVID-19 Z86.16 Pneumomediastinum J98.2 Pericardial effusion I31.3 Obstructive sleep apnea G47.33
[2021-04-18] MEDS: ALPRAZolam 0.25 MG TABLET PO PRN ×2 (06:26→15:07)
[2021-04-18 06:32] LABS: Hematocrit (blood only) 37.8 % (37-47); Hemoglobin 11.8 g/dL (12.0-16.0); Mean Corpuscular Hemoglobin 29.6 pg (25-34); Mean Corpuscular Hgb Conc 31.2 g/dL (32-36); Mean Corpuscular Volume 94.7 fL (80-100); Mean Platelet Volume 9.8 fL (7.4-10.4); Platelet Count 421 K/uL (130-400); RDW Coefficient of Variation 16.4 % (11.5-14.5); RDW Standard Deviation 56.2 fL (36.4-46.3); Red Blood Count 3.99 M/uL (4.2-5.4); White Blood Count 22.37 K/uL (4.8-10.8)
[2021-04-18 07:09] LABS: BUN Creatinine Ratio 43.3 (10-20); Calcium 8.6 mg/dl (8.5-10.1); Creatinine Clr Calc Pharmacy 118.4 ml/min; Est GFR (African American) 116.2 ml/min; Est GFR (Non-African American) 100.3 ml/min; Potassium 4.1 mmol/L (3.5-5.1)
[2021-04-18] MEDS: BUDESONIDE 0.5 MG/2 ML VIAL (PULMICORT) NEB SCH ×2 (07:25→19:07)
[2021-04-18] MEDS: predniSONE 20 MG TAB PO SCH (07:54)
[2021-04-18] MEDS: FLUTICASONE PROPIONATE NA SPR 16 GM BTL NAE SCH (08:00)
[2021-04-18] MEDS: SILDENAFIL CITRATE 20 MG TABLET PO SCH ×3 (08:04→21:30)
[2021-04-18] MEDS: METOPROLOL SUCC 25MG EXT REL TAB PO SCH ×3 (08:05→21:30)
[2021-04-18] MEDS: DOCUSATE SODIUM/SENNA 50/8.6MG TAB PO SCH (08:05)
[2021-04-18] MEDS: SERTRALINE HCL 50 MG TABLET PO SCH (08:06)
[2021-04-18] MEDS ORDERED: INSULIN HUMAN NPH SC SCH ×2 (09:00→10:15)
--- NOTE | 2021-04-18 09:07 | Hospitalist Progress Note ---
Date of Service April 18, 2021 Assessment & Plan (1) Acute on chronic respiratory failure with hypoxia: (2) Gram-positive bacteremia: (3) Anxiety: Plan: 65-year-old female with PMH of asthma, DM, CHF, GERD, and recent ED 03/05 visit for Covid [03/05-03/25] who had fairly stayed stable on 4 to 5 L oxygen for many days prior to discharge presented again to our ED 03/30 with worsening shortness of breath. Patient had completed courses of dexamethasone and remdesivir in her prior admission and was discharged in stable condition on 4 L continuous nasal cannula oxygen. Patient is being managed for the following: #. Acute on chronic respiratory failure with hypoxia: #. History of COVID-19: #. Late phase ARDS: #. Pneumomediastinum - resolved per CXR 04/03 and 04/04 #. Bacteremia: NEUROLOGICAL: Alert, oriented, and cooperative. Cranial nerves, sensation and strength grossly intact. Pupils round, equal, and react to light, EOMs are full. -Patient presenting from home with reports of worsening shortness of breath. Recently admitted to [facility] 03/05 - 03/25 for hypoxic respiratory failure due to COVID 19 pneumonia. Completed courses of dexamethasone and remdesivir while admitted. Discharged on 4L O2 continuous. -On presentation to ED, patient in resp distress and was placed on CPAP however did not tolerate and was placed on Hi Harley 40L 90% FiO2 - has had much improvement afterwards. -Admitting CTA negative for large PE however shows worsening consolidation and pneumomediastinum. -Procalcitonin negative, CRP 5.50 at presentation -Admitting WBC elevated, trending down -Chest imaging shows severe and constant bilateral pulmonary opacities -Pulmonology on board: Per Pulm, she has fibrotic changes in the CT scan --> hence proning would not be beneficial at this point. On Steroid for late phase ARDS (iv and INH). No indication to f/u on pneumomediastinum, resolved per 04/03 CXR. -03/30 blood culture positive for coagulase-negative staph [not lugdunensis] resistance to oxacillin/multidrug resistance -TTE on admission:-No evidence of vegetation. Patient had been afebrile. -Repeat blood culture 04/02 -ve for any growth. Vancomycin discontinued Likely contaminant Currently on prednisone being tapered #. Pulmonary hypertension: #. Pericardial effusion 04/01 echo showing EF greater than 70% with grade 1 diastolic dysfunction. RV systolic pressure severely elevated at greater than 60 mmHg. Small loculated pericardial effusion, may suggest increased chronicity/stability. No tamponade physiology on echo. Had a right heart cath 04/16/2021 which showed mild to moderate precapillary pulmonary hypertension with a mean pulmonary artery pressure of 27 mmHg. PCWP of 11 mmHg. Pulmonary vascular resistance of 4.75 Tyson units. Started on sildenafil per pulm. Imdur discontinued. Discussed with Mammalogy Teacher today. OK to increase sildenafil to 20mg TID #. Anxiety: Clearly having difficulty coping with the situation at this point, patient has been counseled multiple times during the hospital stay. Provided extensive counselling as well Currently on sertraline daily and prn xanax. #. Herpes Zoster: on b/l glutes. Completed valtrex x7d on 04/08. #. Diabetes: -hgb a1c 12.4 02/2021 -Lantus/Novolog #. Hypertension Stable, Continue current medications. #. DVT prophylaxis: -SQ Lovenox Continue to increase activity level. Discussed with RN. SHANE frausto Plan for possible dc to rehab next week Patient's [[phone]] Admission and Anticipated Discharge Date Admission Date: March 30, 2021 Subjective 65-year-old woman with diabetes mellitus and other medical problems who presented with shortness of breath, was recently hospitalized from 03/05/2021 to 03/25/2021 for acute hypoxic respiratory failure due to COVID-19 and completed dexamethasone and remdesivir and discharged on 4 L of continuous oxygen. Currently being managed for acute on chronic hypoxic respiratory failure, late phase ARDS and possible pulmonary hypertension. Had a right heart cath 04/16/2021 which showed mild to moderate precapillary pulmonary hypertension with a mean pulmonary artery pressure of 27 mmHg. PCWP of 11 mmHg. Pulmonary vascular resistance of 4.75 Tyson units. Patient seen and examined this morning Continues to report shortness of breath with minimal activity Reports cough, mostly dry Denies any chest pain Reports she feels less anxious today Has been getting out of bed to chair more with assistance Review of Systems Constitutional: + fatigue Respiratory: + cough, + dyspnea and + dyspnea on exertion Cardiovascular: + dyspnea and + dyspnea on exertion; no palpitations and no lightheadedness Gastrointestinal: no abdominal pain, no nausea and no vomiting Genitourinary: no dysuria, no urinary frequency and no urinary urgency Neurologic: no dizziness and no headache(s) Psychiatric: + anxiety; no depression Physical Exam Constitutional: + well hydrated and + obese; no acute distress Eyes: PERRL, conjunctivae normal, anicteric sclerae ENMT: external ear and nose normal, oropharynx normal Respiratory: On nasal cannula, diminished breath sounds globally Cardiovascular: RRR S1 S2 Gastrointestinal (Abdomen): normal bowel sounds, soft, nontender, no hepatosplenomegaly Musculoskeletal: No pedal edema Neurologic: PERRL, EOMI, accommodation nl, no face palsy, no dysarthria Psychiatric: A+Ox3, euthymic affect Orientation: alert and oriented x 3 Results & Data Results & Data ([facility]) Vital Signs (Past 12 Hours) Vital Signs Temp Pulse Pulse Resp BP Pulse Ox 04/18/21 07:41 36.5 C 78 20 160/79 H 89 L 04/18/21 07:25 78 18 91 04/17/21 23:55 68 04/17/21 23:40 36.3 C L 77 24 91 Laboratory Results Abnormal lab results 04/17/21 04/17/21 04/17/21 Range/Units 16:08 23:25 23:28 WBC (4.8-10.8) K/uL RBC (4.2-5.4) M/uL Hgb (12.0-16.0) g/dL MCHC (32-36) g/dL RDW Std Deviation (36.4-46.3) fL RDW Coeff of Ralf (11.5-14.5) % Plt Count (130-400) K/uL BUN (7-18) mg/dl Creatinine (0.6-1.2) mg/dl BUN/Creatinine Ratio (10-20) POC Glucose 68 L* 47 L* 46 L* (70-99) mg/dl 04/17/21 04/18/21 04/18/21 Range/Units 23:43 00:13 06:16 WBC 22.37 H (4.8-10.8) K/uL RBC 3.99 L (4.2-5.4) M/uL Hgb 11.8 L (12.0-16.0) g/dL MCHC 31.2 L (32-36) g/dL RDW Std Deviation 56.2 H (36.4-46.3) fL RDW Coeff of Ralf 16.4 H (11.5-14.5) % Plt Count 421 H (130-400) K/uL BUN (7-18) mg/dl Creatinine (0.6-1.2) mg/dl BUN/Creatinine Ratio (10-20) POC Glucose 197 H 170 H (70-99) mg/dl 04/18/21 04/18/21 Range/Units 06:16 11:28 WBC (4.8-10.8) K/uL RBC (4.2-5.4) M/uL Hgb (12.0-16.0) g/dL MCHC (32-36) g/dL RDW Std Deviation (36.4-46.3) fL RDW Coeff of Ralf (11.5-14.5) % Plt Count (130-400) K/uL BUN 22 H (7-18) mg/dl Creatinine 0.52 L (0.6-1.2) mg/dl BUN/Creatinine Ratio 43.3 H (10-20) POC Glucose 244 H (70-99) mg/dl
[2021-04-18] MEDS: INSULIN ASPART 100 UNITS/ML 3 ML PEN SC SCH ×4 (10:24→21:38)
--- NOTE | 2021-04-18 11:32 | Pharmacy Report ---
Pharmacy Glycemic Short Note 2 - Date of Service April 18, 2021 - Glycemic Short BSG Results (Last 24 hours): 04/17/21 04/17/21 04/17/21 11:25 16:08 16:09 Glucose POC Glucose 217 H 68 L* 73 04/17/21 04/17/21 04/17/21 20:45 23:25 23:28 Glucose POC Glucose 77 47 L* 46 L* 04/17/21 04/18/21 04/18/21 23:43 00:13 06:16 Glucose 92 POC Glucose 197 H 170 H 04/18/21 07:07 Glucose POC Glucose 98 OUTPATIENT ANTIDIABETIC REGIMEN: * Novolin 70/30 30qAM and 15 PM * A1c 12.4% 03/05/21 ASSESSMENT: 04/18: * Majority of BSGs were below goal yesterday; 104, 217, 73, 77, 47. Patient experienced hypoglycemia at dinner and bedtime. * Continues on prednisone - dose decreased to 30mg daily today * Will decrease NPH by 50%. Of note, NPH was administered closer to lunchtime the past two days (rather than with AM prednisone). I think this may be contributing to lower BSG at bedtime. RN reports hypoglycemia is making patient anxious and exacerbating some of her other issues. * Will also loosen Novolog CF and CR 04/17: * BSGs increased throughout the day yesterday, 89, 163, 229, and 209 mg/dL * Likely related to delayed NPH in light of NPO status in AM * Continues on prednisone 40 mg PO daily, increased NPH today (given at 1132) * Will not overreact to lunchtime BSG of 217 mg/dL due to late NPH * Will tighten Novolog carb coverage back to 3 04/16: * Patient received total of 79 units of insulin yesterday, of which 8 units were Lantus and 15 units were NPH to cover PO pred 40 mg * BSGs trending down overnight, could be related to change in steroids from DXM to prednisone * Fasting BSG 89 mg/dL - held AM long acting insulin as patient NPO. Lunch BSG 163 mg/dL and diet resume, will d/c basal insulin and decrease NPH dose today for steroids Background * Patient currently on high dose steroids, dexamethasone 20 mg IV (day 45), and will taper down to 10 mg on 04/05 * BSGs elevated likely d/t steroid, patient received 118 units of insulin yesterday, 46 of which were basal * Novolog parameters and lantus increased yesterday, BSGs have trended down with these changes, will continue same for now * Consider adding NPH with dexamethasone if BSGs continue to be elevated, held off for today as patient trended down overnight and BSGs have been acceptable so far today (all <180 mg/dL) PLAN FOR INPATIENT GLYCEMIC CONTROL: * Hold outpatient oral diabetes medications * Basal insulin - decrease NPH * NPH 6 units x 1 with PO prednisone 30 mg daily * Bolus insulin - loosen * NovoLog per scale AC or Q6hrs while NPO * Goal Range: Low 110 mg/dL - High 140 mg/dL * Correction Factor: 20 mg/dL/unit * Nutritional / Prandial insulin per carb ratio of 1 unit per 4 grams CHO consumed * No insulin coverage at HS Discharge Recommendations * Patient's HbA1C is above goal range (currently goal would be <8% while current HbA1C is 12.4%) * Patient's outpatient regimen JUST started after last admission so has not had time to be evaluated yet. * Please resume outpatient regimen and re-evaluate in 1 month's time.
--- NOTE | 2021-04-18 18:48 | Pulmonology Progress Note ---
Date of Service April 18, 2021 Assessment & Plan (1) ARDS survivor: (2) Pulmonary hypertension: (3) Acute on chronic respiratory failure with hypoxia: (4) History of COVID-19: (5) Pneumomediastinum: (6) Obstructive sleep apnea: Plan: 65-year-old female with a past medical history of asthma who is currently hospitalized due to prolonged recovery from COVID-19 viral pneumonia. Found to have pulmonary hypertension this admission on right heart cath eterization likely secondary to an ILD-like picture from COVID-19 viral pneumonia. Started on Revatio. Increase the dose to 20 mg 3 times daily today. She received a 10 mg dose this morning and then her first 20 mg dose this afternoon. We will continue 20 mg, 3 times daily Revatio. Will need a repeat echo in 6 weeks. Will need polysomnography as an outpatient and possible ventilation/perfusion scan to evaluate for chronic thromboembolic pulmonary hypertension. Continue to wean oxygen to maintain saturations above 90%. Continue excellent bedside nursing care. Discussed with hospitalist. She will need extensive rehabilitation. Pulmonary will continue to follow. Thank you for the consult. Admission and Anticipated Discharge Date Admission Date: March 30, 2021 Subjective Patient seen and examined. She remains in good spirits. Continues to have dyspnea on exertion. Currently on 5 L of oxygen. Tolerating Revatio well. Review of Systems Review of Systems: All systems reviewed & are unremarkable except as noted in HPI & below Physical Exam Physical Exam: GENERAL : No significant distress. EYES: No icterus, gaze conjugate NOSE: No evidence of epistaxis. Nasal cannula is in place MOUTH: No lesions or candidiasis. Mucosa is moist NECK: Supple LUNGS: Decreased lung sounds throughout. Inspiratory Velcro crackles noted in bilateral lung skinner. HEART: Regular, rate controlled. No murmurs gallops or rubs appreciated. ABDOMEN: Soft, NT, ND, BS Present EXTREMITIES: Trace LE edema, pedal pulses intact and equal bilaterally. NEURO: A&OX3. . Results & Data Results & Data ([facility]) Vital Signs (Past 12 Hours) Vital Signs Temp Pulse Pulse Resp BP Pulse Ox Pulse Ox 04/18/21 16:00 91 H 04/18/21 15:22 98.1 F 79 17 98/63 L 91 04/18/21 10:44 98.1 F 77 20 143/78 H 86 L 04/18/21 08:00 81 91 04/18/21 07:41 97.7 F 78 20 160/79 H 89 L 04/18/21 07:25 78 18 91 Vital signs, labs and imaging personally reviewed PG Care Time/CCT Total # of Minutes Spent Total Time Spent with Patient: Total time spent is greater than 50% in coordination of care (as documented) at patient's floor/unit and/or counseling patient: Coding Level of Care Code 08496 Subseq Hosp Care Lvl 3 Diagnoses ARDS survivor Z87.09 Pulmonary hypertension I27.20 Acute on chronic respiratory failure with hypoxia J96.21 History of COVID-19 Z86.16 Pneumomediastinum J98.2 Obstructive sleep apnea G47.33
[2021-04-19] MEDS: ALPRAZolam 0.25 MG TABLET PO PRN ×2 (04:48→13:12)
[2021-04-19] MEDS: BUDESONIDE 0.5 MG/2 ML VIAL (PULMICORT) NEB SCH ×2 (07:24→19:12)
[2021-04-19 08:04] LABS: Hematocrit (blood only) 38.7 % (37-47); Mean Corpuscular Hemoglobin 29.9 pg (25-34); Mean Corpuscular Volume 96.3 fL (80-100); Mean Platelet Volume 10.1 fL (7.4-10.4); Platelet Count 462 K/uL (130-400); RDW Coefficient of Variation 16.6 % (11.5-14.5); RDW Standard Deviation 58.1 fL (36.4-46.3); Red Blood Count 4.02 M/uL (4.2-5.4); White Blood Count 21.57 K/uL (4.8-10.8)
[2021-04-19] MEDS: INSULIN ASPART 100 UNITS/ML 3 ML PEN SC SCH ×4 (08:25→21:21)
[2021-04-19] MEDS: predniSONE 20 MG TAB PO SCH (08:27)
[2021-04-19] MEDS: SILDENAFIL CITRATE 20 MG TABLET PO SCH ×3 (08:29→21:11)
[2021-04-19] MEDS: FLUTICASONE PROPIONATE NA SPR 16 GM BTL NAE SCH (08:29)
[2021-04-19] MEDS: SERTRALINE HCL 50 MG TABLET PO SCH (08:35)
[2021-04-19] MEDS: DOCUSATE SODIUM/SENNA 50/8.6MG TAB PO SCH (08:35)
[2021-04-19 08:46] LABS: Creatinine Clr Calc Pharmacy 113.3 ml/min; Est GFR (African American) 114.1 ml/min; Est GFR (Non-African American) 98.4 ml/min
[2021-04-19] MEDS ORDERED: INSULIN HUMAN NPH SC SCH (09:00)
[2021-04-19] MEDS: METOPROLOL SUCC 25MG EXT REL TAB PO SCH ×3 (10:14→21:11)
--- NOTE | 2021-04-19 11:47 | Hospitalist Progress Note ---
Date of Service April 19, 2021 Assessment & Plan (1) Acute on chronic respiratory failure with hypoxia: (2) Gram-positive bacteremia: (3) Anxiety: Plan: 65-year-old female with PMH of asthma, DM, CHF, GERD, and recent ED 03/05 visit for Covid [03/05-03/25] who had fairly stayed stable on 4 to 5 L oxygen for many days prior to discharge presented again to our ED 03/30 with worsening shortness of breath. Patient had completed courses of dexamethasone and remdesivir in her prior admission and was discharged in stable condition on 4 L continuous nasal cannula oxygen. Patient is being managed for the following: #. Acute on chronic respiratory failure with hypoxia: #. History of COVID-19: #. Late phase ARDS: #. Pneumomediastinum - resolved per CXR 04/03 and 04/04 #. Bacteremia: NEUROLOGICAL: Alert, oriented, and cooperative. Cranial nerves, sensation and strength grossly intact. Pupils round, equal, and react to light, EOMs are full. -Patient presenting from home with reports of worsening shortness of breath. Recently admitted to [facility] 03/05 - 03/25 for hypoxic respiratory failure due to COVID 19 pneumonia. Completed courses of dexamethasone and remdesivir while admitted. Discharged on 4L O2 continuous. -On presentation to ED, patient in resp distress and was placed on CPAP however did not tolerate and was placed on [place]ley 40L 90% FiO2 - has had much improvement afterwards. -Admitting CTA negative for large PE however shows worsening consolidation and pneumomediastinum. -Procalcitonin negative, CRP 5.50 at presentation -Admitting WBC elevated, trending down -Chest imaging shows severe and constant bilateral pulmonary opacities -Pulmonology on board: Per Pulm, she has fibrotic changes in the CT scan --> hence proning would not be beneficial at this point. On Steroid for late phase ARDS (iv and INH). No indication to f/u on pneumomediastinum, resolved per 04/03 CXR. -03/30 blood culture positive for coagulase-negative staph [not lugdunensis] resistance to oxacillin/multidrug resistance -TTE on admission:-No evidence of vegetation. Patient had been afebrile. -Repeat blood culture 04/02 -ve for any growth. Vancomycin discontinued Likely contaminant Currently on prednisone being tapered #. Pulmonary hypertension: #. Pericardial effusion 04/01 echo showing EF greater than 70% with grade 1 diastolic dysfunction. RV systolic pressure severely elevated at greater than 60 mmHg. Small loculated pericardial effusion, may suggest increased chronicity/stability. No tamponade physiology on echo. Had a right heart cath 04/16/2021 which showed mild to moderate precapillary pulmonary hypertension with a mean pulmonary artery pressure of 27 mmHg. PCWP of 11 mmHg. Pulmonary vascular resistance of 4.75 Tyson units. Started on sildenafil per pulm. Imdur discontinued. Continue sildenafil 20mg tid Plan to dc to rehab. Will need pulm rehab #. Anxiety: Clearly having difficulty coping with the situation at this point, patient has been counseled multiple times during the hospital stay. Provided counselling Stop xanax prn Add hydroxyzine prn. Monitor QTc #. Herpes Zoster: on b/l glutes. Completed valtrex x7d on 04/08. #. Diabetes: -hgb a1c 12.4 02/2021 -Lantus/Novolog #. Hypertension Stable, Continue current medications. #. DVT prophylaxis: -SQ Lovenox Continue to increase activity level. Plan for possible dc to rehab from tomorrow Patient's [[phone]] Admission and Anticipated Discharge Date Admission Date: March 30, 2021 Subjective 65-year-old woman with diabetes mellitus and other medical problems who presented with shortness of breath, was recently hospitalized from 03/05/2021 to 03/25/2021 for acute hypoxic respiratory failure due to COVID-19 and completed dexamethasone and remdesivir and discharged on 4 L of continuous oxygen. Currently being managed for acute on chronic hypoxic respiratory failure, late phase ARDS and possible pulmonary hypertension. Had a right heart cath 04/16/2021 which showed mild to moderate precapillary pulmonary hypertension with a mean pulmonary artery pressure of 27 mmHg. PCWP of 11 mmHg. Pulmonary vascular resistance of 4.75 Tyson units. Patient seen and examined this morning Continues to report shortness of breath with minimal activity and dry cough occasionally Denies any chest pain Reports anxiety Has been increasing activity slowly Review of Systems Constitutional: + fatigue Respiratory: + cough, + dyspnea and + dyspnea on exertion Cardiovascular: + dyspnea and + dyspnea on exertion; no palpitations and no lightheadedness Gastrointestinal: no abdominal pain, no nausea and no vomiting Genitourinary: no dysuria, no urinary frequency and no urinary urgency Neurologic: no dizziness and no headache(s) Psychiatric: + anxiety; no depression Physical Exam Constitutional: + well hydrated and + obese; no acute distress Eyes: PERRL, conjunctivae normal, anicteric sclerae ENMT: external ear and nose normal, oropharynx normal Respiratory: On nasal cannula, diminished breath sounds Cardiovascular: RRR S1 S2 Gastrointestinal (Abdomen): normal bowel sounds, soft, nontender, no hepatosplenomegaly Musculoskeletal: No pedal edema Neurologic: PERRL, EOMI, accommodation nl, no face palsy, no dysarthria Psychiatric: Orientation: alert and oriented x 3 Mood: + anxious mood Results & Data Results & Data ([facility]) Vital Signs (Past 12 Hours) Vital Signs Temp Pulse Pulse Resp BP Pulse Ox Pulse Ox 04/19/21 10:43 36.4 C L 83 20 149/84 H 91 04/19/21 08:10 74 04/19/21 08:04 36.5 C 103 H 20 146/63 H 83 L 04/19/21 08:00 83 L 04/19/21 07:25 92 H 18 89 L 04/19/21 03:39 36.8 C 84 19 139/81 92 Laboratory Results Abnormal lab results 04/18/21 04/18/21 04/19/21 Range/Units 16:20 20:20 07:00 WBC (4.8-10.8) K/uL RBC (4.2-5.4) M/uL MCHC (32-36) g/dL RDW Std Deviation (36.4-46.3) fL RDW Coeff of Ralf (11.5-14.5) % Plt Count (130-400) K/uL Creatinine (0.6-1.2) mg/dl BUN/Creatinine Ratio (10-20) Glucose (70-99) mg/dl POC Glucose 163 H 178 H 129 H (70-99) mg/dl 04/19/21 04/19/21 04/19/21 Range/Units 07:22 07:22 11:09 WBC 21.57 H (4.8-10.8) K/uL RBC 4.02 L (4.2-5.4) M/uL MCHC 31.0 L (32-36) g/dL RDW Std Deviation 58.1 H (36.4-46.3) fL RDW Coeff of Ralf 16.6 H (11.5-14.5) % Plt Count 462 H (130-400) K/uL Creatinine 0.55 L (0.6-1.2) mg/dl BUN/Creatinine Ratio 33.0 H (10-20) Glucose 150 H (70-99) mg/dl POC Glucose 175 H (70-99) mg/dl
--- NOTE | 2021-04-19 13:23 | Pulmonology Progress Note ---
Date of Service April 19, 2021 Assessment & Plan (1) ARDS survivor: (2) Pulmonary hypertension: (3) Acute on chronic respiratory failure with hypoxia: (4) History of COVID-19: (5) Pneumomediastinum: (6) Obstructive sleep apnea: Plan: 65-year-old female with a past medical history of asthma who is currently hospitalized due to prolonged recovery from COVID-19 viral pneumonia. Found to have pulmonary hypertension this admission on right heart cath eterization likely secondary to an ILD-like picture from COVID-19 viral pneumonia. Currently on 20 mg, 3 times daily of Revatio. Will need a repeat echo in 6 weeks. Will need polysomnography as an outpatient and possible ventilation/perfusion scan to evaluate for chronic thromboembolic pulmonary hypertension. She is not interested in trying CPAP during this hospitalization. Continue to wean off prednisone. Continue to wean oxygen to maintain saturations above 90%. Continue excellent bedside nursing care. Discussed with hospitalist. She will need extensive rehabilitation. Pulmonary will sign off. Thank you for the consult. We will set up for outpatient follow-up. Admission and Anticipated Discharge Date Admission Date: March 30, 2021 Subjective Patient notes that she is more tired today. Her Coronel catheter was removed. She notes that she had to urinate several times overnight which kept her up. She has no significant changes in her breathing. She continues to require 5 L of oxygen at rest to maintain sats in the low 90s. Review of Systems Review of Systems: All systems reviewed & are unremarkable except as noted in HPI & below Physical Exam Physical Exam: GENERAL : No significant distress. EYES: No icterus, gaze conjugate NOSE: No evidence of epistaxis. Nasal cannula is in place MOUTH: No lesions or candidiasis. Mucosa is moist NECK: Supple LUNGS: Decreased lung sounds throughout. Inspiratory Velcro crackles noted in bilateral lung skinner. HEART: Regular, rate controlled. No murmurs gallops or rubs appreciated. ABDOMEN: Soft, NT, ND, BS Present EXTREMITIES: Trace LE edema, pedal pulses intact and equal bilaterally. NEURO: A&OX3. . Results & Data Results & Data ([facility]) Vital Signs (Past 12 Hours) Vital Signs Temp Pulse Pulse Resp BP Pulse Ox Pulse Ox 04/19/21 10:43 97.5 F L 83 20 149/84 H 91 04/19/21 08:10 74 04/19/21 08:04 97.7 F 103 H 20 146/63 H 83 L 04/19/21 08:00 83 L 04/19/21 07:25 92 H 18 89 L 04/19/21 03:39 98.2 F 84 19 139/81 92 vital signs, labs and imaging reviewed PG Care Time/CCT Total # of Minutes Spent Total Time Spent with Patient: Total time spent is greater than 50% in coordination of care (as documented) at patient's floor/unit and/or counseling patient: Coding Level of Care Code 92287 Subseq Hosp Care Lvl 2 Diagnoses ARDS survivor Z87.09 Pulmonary hypertension I27.20 Acute on chronic respiratory failure with hypoxia J96.21 History of COVID-19 Z86.16 Pneumomediastinum J98.2 Obstructive sleep apnea G47.33
[2021-04-20] MEDS: hydrOXYzine HCl 25 MG TAB PO PRN ×4 (06:35→20:53)
[2021-04-20] MEDS: BUDESONIDE 0.5 MG/2 ML VIAL (PULMICORT) NEB SCH (07:22)
[2021-04-20 08:36] LABS: BUN Creatinine Ratio 41.1 (10-20); Calcium 8.4 mg/dl (8.5-10.1); Creatinine Clr Calc Pharmacy 117.8 ml/min; Est GFR (African American) 115.5 ml/min; Est GFR (Non-African American) 99.6 ml/min
[2021-04-20] MEDS: SILDENAFIL CITRATE 20 MG TABLET PO SCH ×3 (08:41→20:54)
[2021-04-20] MEDS: predniSONE 20 MG TAB PO SCH (08:41)
[2021-04-20 08:44] LABS: Potassium 4.3 mmol/L (3.5-5.1)
[2021-04-20] MEDS ORDERED: INSULIN HUMAN NPH SC SCH (09:00)
[2021-04-20] MEDS: DOCUSATE SODIUM/SENNA 50/8.6MG TAB PO SCH (09:02)
[2021-04-20] MEDS: FLUTICASONE PROPIONATE NA SPR 16 GM BTL NAE SCH (09:03)
[2021-04-20] MEDS: INSULIN ASPART 100 UNITS/ML 3 ML PEN SC SCH ×4 (09:05→21:19)
[2021-04-20] MEDS: METOPROLOL SUCC 25MG EXT REL TAB PO SCH ×3 (09:09→20:54)
[2021-04-20] MEDS: SERTRALINE HCL 50 MG TABLET PO SCH (09:09)
--- NOTE | 2021-04-20 09:33 | Hospitalist Progress Note ---
Date of Service April 20, 2021 Assessment & Plan (1) Acute on chronic respiratory failure with hypoxia: (2) Gram-positive bacteremia: (3) Anxiety: Plan: 65-year-old female with PMH of asthma, DM, CHF, GERD, and recent ED 03/05 visit for Covid [03/05-03/25] who had fairly stayed stable on 4 to 5 L oxygen for many days prior to discharge presented again to our ED 03/30 with worsening shortness of breath. Patient had completed courses of dexamethasone and remdesivir in her prior admission and was discharged in stable condition on 4 L continuous nasal cannula oxygen. Patient is being managed for the following: #. Acute on chronic respiratory failure with hypoxia: #. History of COVID-19: #. Late phase ARDS: #. Pneumomediastinum - resolved per CXR 04/03 and 04/04 #. Bacteremia: NEUROLOGICAL: Alert, oriented, and cooperative. Cranial nerves, sensation and strength grossly intact. Pupils round, equal, and react to light, EOMs are full. -Patient presenting from home with reports of worsening shortness of breath. Recently admitted to [facility] 03/05 - 03/25 for hypoxic respiratory failure due to COVID 19 pneumonia. Completed courses of dexamethasone and remdesivir while admitted. Discharged on 4L O2 continuous. -On presentation to ED, patient in resp distress and was placed on CPAP however did not tolerate and was placed on Hi Harley 40L 90% FiO2 - has had much improvement afterwards. -Admitting CTA negative for large PE however shows worsening consolidation and pneumomediastinum. -Procalcitonin negative, CRP 5.50 at presentation -Admitting WBC elevated, trending down -Chest imaging shows severe and constant bilateral pulmonary opacities -Pulmonology on board: Per Pulm, she has fibrotic changes in the CT scan --> hence proning would not be beneficial at this point. On Steroid for late phase ARDS (iv and INH). No indication to f/u on pneumomediastinum, resolved per 04/03 CXR. -03/30 blood culture positive for coagulase-negative staph [not lugdunensis] resistance to oxacillin/multidrug resistance -TTE on admission:-No evidence of vegetation. Patient had been afebrile. -Repeat blood culture 04/02 -ve for any growth. Vancomycin discontinued Likely contaminant Currently on prednisone being tapered #. Pulmonary hypertension: #. Pericardial effusion 04/01 echo showing EF greater than 70% with grade 1 diastolic dysfunction. RV systolic pressure severely elevated at greater than 60 mmHg. Small loculated pericardial effusion, may suggest increased chronicity/stability. No tamponade physiology on echo. Had a right heart cath 04/16/2021 which showed mild to moderate precapillary pulmonary hypertension with a mean pulmonary artery pressure of 27 mmHg. PCWP of 11 mmHg. Pulmonary vascular resistance of 4.75 Tyson units. Started on sildenafil per pulm. Imdur discontinued. Continue sildenafil 20mg tid on discharge Will need pulm rehab Patient is stable for dc #. Anxiety: Clearly having difficulty coping with the situation at this point, patient has been counseled multiple times during the hospital stay. Improving Continue zoloft 50mg Continue hydroxyzine prn #. Herpes Zoster: on b/l glutes. Completed valtrex x7d on 04/08. #. Diabetes: -hgb a1c 12.4 02/2021 -Lantus/Novolog per protocol #. Hypertension Stable, Continue current medications. #. DVT prophylaxis: -SQ Lovenox Continue to increase activity level. Discussed with CM. Patient stable for discharge to rehab for continued recovery Patient's [[phone]] Admission and Anticipated Discharge Date Admission Date: March 30, 2021 Subjective 65-year-old woman with diabetes mellitus and other medical problems who presented with shortness of breath, was recently hospitalized from 03/05/2021 to 03/25/2021 for acute hypoxic respiratory failure due to COVID-19 and completed dexamethasone and remdesivir and discharged on 4 L of continuous oxygen. Currently being managed for acute on chronic hypoxic respiratory failure, late phase ARDS and possible pulmonary hypertension. Had a right heart cath 04/16/2021 which showed mild to moderate precapillary pulmonary hypertension with a mean pulmonary artery pressure of 27 mmHg. PCWP of 11 mmHg. Pulmonary vascular resistance of 4.75 Tyson units. Patient seen and examined this morning Continues to report shortness of breath with minimal activity Has occasional dry cough Denies any chest pain Anxiety usually controlled with meds and counselling Has been increasing activity slowly Review of Systems Review of Systems: At least ten systems were reviewed and negative except as indicated in HPI above. Constitutional: + fatigue Respiratory: + cough, + dyspnea and + dyspnea on exertion Cardiovascular: + dyspnea and + dyspnea on exertion; no palpitations and no lightheadedness Gastrointestinal: no abdominal pain, no nausea and no vomiting Genitourinary: no dysuria, no urinary frequency and no urinary urgency Neurologic: no dizziness and no headache(s) Psychiatric: + anxiety; no depression Physical Exam Constitutional: + well hydrated and + obese; no acute distress Eyes: PERRL, conjunctivae normal, anicteric sclerae ENMT: external ear and nose normal, oropharynx normal Respiratory: Not in respiratory distress, on nasal cannula, diminished breath sounds globally, scattered crackles Cardiovascular: RRR S1 S2 Gastrointestinal (Abdomen): normal bowel sounds, soft, nontender, no hepatosplenomegaly Musculoskeletal: No pedal edema Neurologic: PERRL, EOMI, accommodation nl, no face palsy, no dysarthria Psychiatric: A+Ox3, euthymic affect Results & Data Results & Data ([facility]) Vital Signs (Past 12 Hours) Vital Signs Temp Pulse Pulse Pulse Resp BP Pulse Ox 04/20/21 08:00 04/20/21 07:39 36.6 C 78 22 152/80 H 90 04/20/21 07:23 77 18 90 04/20/21 03:16 36.7 C 65 65 20 144/94 H 91 04/20/21 00:00 72 04/19/21 23:41 36.7 C 90 18 133/65 90 Pulse Ox 04/20/21 08:00 92 04/20/21 07:39 04/20/21 07:23 04/20/21 03:16 04/20/21 00:00 04/19/21 23:41 Laboratory Results Abnormal lab results 04/19/21 04/19/21 04/20/21 Range/Units 15:58 20:31 06:12 BUN 22 H (7-18) mg/dl Creatinine 0.53 L (0.6-1.2) mg/dl BUN/Creatinine Ratio 41.1 H (10-20) Glucose 111 H (70-99) mg/dl POC Glucose 223 H 113 H (70-99) mg/dl Calcium 8.4 L (8.5-10.1) mg/dl 04/20/21 04/20/21 Range/Units 07:02 11:28 BUN (7-18) mg/dl Creatinine (0.6-1.2) mg/dl BUN/Creatinine Ratio (10-20) Glucose (70-99) mg/dl POC Glucose 132 H 147 H (70-99) mg/dl Calcium (8.5-10.1) mg/dl
--- NOTE | 2021-04-20 09:35 | Pharmacy Report ---
Pharmacy Glycemic Short Note 2 - Date of Service April 20, 2021 - Glycemic Short BSG Results (Last 24 hours): 04/19/21 04/19/21 04/19/21 11:09 15:58 20:31 Glucose POC Glucose 175 H 223 H 113 H 04/20/21 04/20/21 06:12 07:02 Glucose 111 H POC Glucose 132 H OUTPATIENT ANTIDIABETIC REGIMEN: * Novolin 70/30 30qAM and 15 PM * A1c 12.4% 03/05/21 ASSESSMENT: 04/19 * Stressors stable today, but prednisone will taper tomorrow from 30 to 20 mg qAM * Lunch and dinner BSG's both elevated yesterday, but HS wnl. Also - trend up in BSG overnight from 113 to 132 mg/dL. Will therefore slightly increase NPH x1 today and re-assess tomorrow with planned steroid taper * No change to Novolog required 04/18: * Majority of BSGs were below goal yesterday; 104, 217, 73, 77, 47. Patient experienced hypoglycemia at dinner and bedtime. * Continues on prednisone - dose decreased to 30mg daily today * Will decrease NPH by 50%. Of note, NPH was administered closer to lunchtime the past two days (rather than with AM prednisone). I think this may be contributing to lower BSG at bedtime. RN reports hypoglycemia is making patient anxious and exacerbating some of her other issues. * Will also loosen Novolog CF and CR PLAN FOR INPATIENT GLYCEMIC CONTROL: * Hold outpatient oral diabetes medications * Basal insulin - increase NPH * NPH 10 units x 1 with PO prednisone 30 mg daily * Bolus insulin - loosen * NovoLog per scale AC or Q6hrs while NPO * Goal Range: Low 110 mg/dL - High 140 mg/dL * Correction Factor: 20 mg/dL/unit * Nutritional / Prandial insulin per carb ratio of 1 unit per 4 grams CHO consumed * No insulin coverage at HS Discharge Recommendations * Patient's HbA1C is above goal range (currently goal would be <8% while current HbA1C is 12.4%) * Patient's outpatient regimen JUST started after last admission so has not had time to be evaluated yet. * Please resume outpatient regimen and re-evaluate in 1 month's time.
--- NOTE | 2021-04-20 11:05 | Electrocardiogram Report ---
Test Reason : Blood Pressure : / mmHG Vent. Rate : 075 BPM Atrial Rate : 075 BPM P-R Int : 134 ms QRS Dur : 078 ms QT Int : 382 ms P-R-T Axes : 045 -09 013 degrees QTc Int : 426 ms Normal sinus rhythm Moderate voltage criteria for LVH, may be normal variant Borderline ECG When compared with ECG of 30-MAR-2021 12:16, Vent. rate has decreased BY 61 BPM Criteria for Inferior infarct are no longer Present Confirmed by Constantin Blanchard ([id number]) on 04/20/2021 11:04:53 AM Referred By: REFERRED SELF Confirmed By:Tung Blanchard
[2021-04-20] MEDS ORDERED: FUROSEMIDE INJ 20 MG/2 ML VIAL IV ONE (18:02)
[2021-04-21 08:03] LABS: BUN Creatinine Ratio 43.8 (10-20); Calcium 8.6 mg/dl (8.5-10.1); Creatinine Clr Calc Pharmacy 129.8 ml/min; Est GFR (African American) 119.3 ml/min; Est GFR (Non-African American) 102.9 ml/min; Potassium 3.4 mmol/L (3.5-5.1)
[2021-04-21] MEDS: FLUTICASONE PROPIONATE NA SPR 16 GM BTL NAE SCH (08:03)
[2021-04-21] MEDS: hydrOXYzine HCl 25 MG TAB PO PRN ×2 (08:04→21:15)
[2021-04-21] MEDS: SERTRALINE HCL 50 MG TABLET PO SCH (08:23)
[2021-04-21] MEDS: METOPROLOL SUCC 25MG EXT REL TAB PO SCH ×3 (08:23→21:16)
[2021-04-21] MEDS: predniSONE 20 MG TAB PO SCH (08:23)
[2021-04-21] MEDS: DOCUSATE SODIUM/SENNA 50/8.6MG TAB PO SCH (08:24)
[2021-04-21] MEDS: SILDENAFIL CITRATE 20 MG TABLET PO SCH ×3 (08:24→21:15)
[2021-04-21] MEDS: INSULIN ASPART 100 UNITS/ML 3 ML PEN SC SCH ×4 (08:26→21:23)
[2021-04-21] MEDS ORDERED: INSULIN HUMAN NPH SC ONE (09:00)
[2021-04-21] MEDS ORDERED: POTASSIUM CHLORIDE CRTAB 20 MEQ TABCR PO STA (09:01)
--- NOTE | 2021-04-21 09:04 | Pharmacy Report ---
Pharmacy Glycemic Short Note 2 - Date of Service April 21, 2021 - Glycemic Short BSG Results (Last 24 hours): 04/20/21 04/20/21 04/20/21 11:28 15:58 20:52 Glucose POC Glucose 147 H 188 H 223 H 04/21/21 04/21/21 06:21 07:18 Glucose 128 H POC Glucose 131 H OUTPATIENT ANTIDIABETIC REGIMEN: * Novolin 70/30 30 units qAM and 15 units PM * A1c 12.4% 03/05/21 ASSESSMENT: 04/21 * Prednisone tapered from 30 to 20 mg today, with anticipated 3 day course before a further reduction * Post-prandial BSG's elevated x2 yesterday. However, will leave Novolog as-is as anticiapte current parameters will exhibit improved control with steroid taper * Breakfast to lunch with notable downtrend to BSG of 78 mg/dL. Will loosen CHO ratio. * BSG's decreased from 223 mg/dL at HS to 131 mg/dL AM fasting without any correctional insulin administered at HS. That, in addition to steroid taper makes reduction in NPH reasonable 04/20 * Stressors stable today, but prednisone will taper tomorrow from 30 to 20 mg qAM * Lunch and dinner BSG's both elevated yesterday, but HS wnl. Also - trend up in BSG overnight from 113 to 132 mg/dL. Will therefore slightly increase NPH x1 today and re-assess tomorrow with planned steroid taper * No change to Novolog required 04/18: * Majority of BSGs were below goal yesterday; 104, 217, 73, 77, 47. Patient experienced hypoglycemia at dinner and bedtime. * Continues on prednisone - dose decreased to 30mg daily today * Will decrease NPH by 50%. Of note, NPH was administered closer to lunchtime the past two days (rather than with AM prednisone). I think this may be con tributing to lower BSG at bedtime. RN reports hypoglycemia is making patient anxious and exacerbating some of her other issues. * Will also loosen Novolog CF and CR PLAN FOR INPATIENT GLYCEMIC CONTROL: * Hold outpatient oral diabetes medications * Basal insulin - decrease NPH * NPH 8 units x 1 with PO prednisone * Bolus insulin - loosen CHO ratio * NovoLog per scale AC or Q6hrs while NPO * Goal Range: Low 110 mg/dL - High 140 mg/dL * Correction Factor: 20 mg/dL/unit * Nutritional / Prandial insulin per carb ratio of 1 unit per 5 grams CHO consumed * No insulin coverage at HS Discharge Recommendations * Patient's HbA1C is above goal range (currently goal would be <8% while current HbA1C is 12.4%) * Patient's outpatient regimen JUST started after last admission so has not had time to be evaluated yet
--- NOTE | 2021-04-21 11:42 | Hospitalist Progress Note ---
Date of Service April 21, 2021 Assessment & Plan (1) Acute on chronic respiratory failure with hypoxia: (2) Gram-positive bacteremia: (3) Anxiety: Plan: 65-year-old female with PMH of asthma, DM, CHF, GERD, and recent ED 03/05 visit for Covid [03/05-03/25] who had fairly stayed stable on 4 to 5 L oxygen for many days prior to discharge presented again to our ED 03/30 with worsening shortness of breath. Patient had completed courses of dexamethasone and remdesivir in her prior admission and was discharged in stable condition on 4 L continuous nasal cannula oxygen. Patient is being managed for the following: #. Acute on chronic respiratory failure with hypoxia: #. History of COVID-19: #. Late phase ARDS: #. Pneumomediastinum - resolved per CXR 04/03 and 04/04 #. Bacteremia: NEUROLOGICAL: Alert, oriented, and cooperative. Cranial nerves, sensation and strength grossly intact. Pupils round, equal, and react to light, EOMs are full. -Patient presenting from home with reports of worsening shortness of breath. Recently admitted to [facility] 03/05 - 03/25 for hypoxic respiratory failure due to COVID 19 pneumonia. Completed courses of dexamethasone and remdesivir while admitted. Discharged on 4L O2 continuous. -On presentation to ED, patient in resp distress and was placed on CPAP however did not tolerate and was placed on [place] 40L 90% FiO2 - has had much improvement afterwards. -Admitting CTA negative for large PE however shows worsening consolidation and pneumomediastinum. -Procalcitonin negative, CRP 5.50 at presentation -Admitting WBC elevated, trending down -Chest imaging shows severe and constant bilateral pulmonary opacities -Pulmonology on board: Per Pulm, she has fibrotic changes in the CT scan --> hence proning would not be beneficial at this point. On Steroid for late phase ARDS (iv and INH). No indication to f/u on pneumomediastinum, resolved per 04/03 CXR. -03/30 blood culture positive for coagulase-negative staph [not lugdunensis] resistance to oxacillin/multidrug resistance -TTE on admission:-No evidence of vegetation. Patient had been afebrile. -Repeat blood culture 04/02 -ve for any growth. Vancomycin discontinued Likely contaminant Currently on prednisone being tapered #. Pulmonary hypertension: #. Pericardial effusion 04/01 echo showing EF greater than 70% with grade 1 diastolic dysfunction. RV systolic pressure severely elevated at greater than 60 mmHg. Small loculated pericardial effusion, may suggest increased chronicity/stability. No tamponade physiology on echo. Had a right heart cath 04/16/2021 which showed mild to moderate precapillary pulmonary hypertension with a mean pulmonary artery pressure of 27 mmHg. PCWP of 11 mmHg. Pulmonary vascular resistance of 4.75 Tyson units. Started on sildenafil per pulm. Imdur discontinued. Continue sildenafil 20mg tid on discharge Will need pulm rehab Patient is stable for dc. CM working on placement Give one dose of lasix today. Replete K #. Anxiety: Clearly having difficulty coping with the situation at this point, patient has been counseled multiple times during the hospital stay. Improving Continue zoloft 50mg Continue hydroxyzine prn #. Herpes Zoster: on b/l glutes. Completed valtrex x7d on 04/08. #. Diabetes: -hgb a1c 12.4 02/2021 -Lantus/Novolog per protocol #. Hypertension Stable, Continue current medications. #. DVT prophylaxis: -SQ Lovenox CM working on placement Patient's [[phone]] Admission and Anticipated Discharge Date Admission Date: March 30, 2021 Subjective 65-year-old woman with diabetes mellitus and other medical problems who presented with shortness of breath, was recently hospitalized from 03/05/2021 to 03/25/2021 for acute hypoxic respiratory failure due to COVID-19 and completed dexamethasone and remdesivir and discharged on 4 L of continuous oxygen. Currently being managed for acute on chronic hypoxic respiratory failure, late phase ARDS and possible pulmonary hypertension. Had a right heart cath 04/16/2021 which showed mild to moderate precapillary pulmonary hypertension with a mean pulmonary artery pressure of 27 mmHg. PCWP of 11 mmHg. Pulmonary vascular resistance of 4.75 Tyson units. Patient seen and examined this morning Continues to have shortness of breath with minimal activity, occasional cough Denies any chest pain Anxiety usually controlled with meds and counselling. She usually gets anxious after waking up in the morning wondering how the day will be Has been increasing activity slowly Review of Systems Constitutional: + fatigue Respiratory: + cough, + dyspnea and + dyspnea on exertion Cardiovascular: + dyspnea and + dyspnea on exertion; no palpitations and no lightheadedness Gastrointestinal: no abdominal pain, no nausea and no vomiting Genitourinary: no dysuria, no urinary frequency and no urinary urgency Neurologic: no dizziness and no headache(s) Psychiatric: + anxiety; no depression Physical Exam Constitutional: + well hydrated and + obese; no acute distress Eyes: PERRL, conjunctivae normal, anicteric sclerae ENMT: external ear and nose normal, oropharynx normal Respiratory: On nasal cannula, diminished breath sounds, crackles bilaterally Cardiovascular: RRR S1 S2 Gastrointestinal (Abdomen): normal bowel sounds, soft, nontender, no hepatosplenomegaly Musculoskeletal: No pedal edema Neurologic: PERRL, EOMI, accommodation nl, no face palsy, no dysarthria Psychiatric: Orientation: alert and oriented x 3 Results & Data Results & Data ([facility]) Vital Signs (Past 12 Hours) Vital Signs Temp Pulse Pulse Resp BP Pulse Ox Pulse Ox 04/21/21 11:36 36.5 C 69 24 159/80 H 96 04/21/21 08:00 92 04/21/21 07:51 36.5 C 82 24 171/92 H 91 04/21/21 07:11 72 04/21/21 04:00 36.7 C 77 20 138/75 93 04/20/21 23:55 68 93 Laboratory Results Abnormal lab results 04/20/21 04/21/21 04/21/21 Range/Units 20:52 06:21 07:18 Potassium 3.4 L D (3.5-5.1) mmol/L BUN 21 H (7-18) mg/dl Creatinine 0.48 L (0.6-1.2) mg/dl BUN/Creatinine Ratio 43.8 H (10-20) Glucose 128 H (70-99) mg/dl POC Glucose 223 H 131 H (70-99) mg/dl 04/21/21 Range/Units 16:02 Potassium (3.5-5.1) mmol/L BUN (7-18) mg/dl Creatinine (0.6-1.2) mg/dl BUN/Creatinine Ratio (10-20) Glucose (70-99) mg/dl POC Glucose 218 H (70-99) mg/dl
[2021-04-21] MEDS ORDERED: FUROSEMIDE INJ 20 MG/2 ML VIAL IV ONE (16:42)
[2021-04-22 07:56] LABS: BUN Creatinine Ratio 47.1 (10-20); Calcium 8.6 mg/dl (8.5-10.1); Est GFR (African American) 118.5 ml/min; Est GFR (Non-African American) 102.2 ml/min; Magnesium 2.3 mg/dl (1.8-2.4); Potassium 3.4 mmol/L (3.5-5.1)
[2021-04-22 07:57] LABS: Phosphorus 3.5 mg/dl (2.5-4.9)
[2021-04-22] MEDS: INSULIN ASPART 100 UNITS/ML 3 ML PEN SC SCH ×2 (08:57→11:46)
[2021-04-22] MEDS ORDERED: INSULIN HUMAN NPH SC SCH (09:00)
[2021-04-22] MEDS: FLUTICASONE PROPIONATE NA SPR 16 GM BTL NAE SCH (09:02)
[2021-04-22] MEDS: METOPROLOL SUCC 25MG EXT REL TAB PO SCH ×2 (09:03→15:12)
[2021-04-22] MEDS: predniSONE 20 MG TAB PO SCH (09:04)
[2021-04-22] MEDS: SILDENAFIL CITRATE 20 MG TABLET PO SCH ×2 (09:05→15:12)
[2021-04-22] MEDS: DOCUSATE SODIUM/SENNA 50/8.6MG TAB PO SCH (09:08)
[2021-04-22] MEDS: SERTRALINE HCL 50 MG TABLET PO SCH (09:24)
[2021-04-22] MEDS ORDERED: POTASSIUM CHLORIDE CRTAB 20 MEQ TABCR PO ONE (10:10)
--- NOTE | 2021-04-22 13:26 | Hospitalist Progress Note ---
Date of Service April 22, 2021 Assessment & Plan (1) Acute on chronic respiratory failure with hypoxia: (2) Gram-positive bacteremia: (3) Anxiety: Plan: Patient is a 65 yr female with PMH of asthma, DM, CHF, GERD, and recent ED 03/05 visit for Covid [03/05-03/25] who had fairly stayed stable on 4 to 5 L oxygen for many days prior to discharge presented again to our ED 03/30 with worsening shortness of breath. Patient had completed courses of dexamethasone and r emdesivir in her prior admission and was discharged in stable condition on 4 L continuous nasal cannula oxygen. Acute on chronic respiratory failure with hypoxia: H/O COVID-19 Pneumonia Late phase ARDS: Pneumomediastinum - resolved per CXR 04/03 and 04/04 Suspected Bacteremia: Completed courses of dexamethasone and remdesivir last admission and was discharged on 4L O2 continuous. High flow oxygen transition to nasal cannula during this admission CTA negative for large PE however shows worsening consolidation and pneumomediastinum. Procalcitonin negative CRP 5.50 at presentation Chest imaging shows severe and constant bilateral pulmonary opacities Appreciate Pulmonology Input Patient has fibrotic changes in the CT scan --> hence proning would not be beneficial at this point. Received Steroid for late phase ARDS 03/30 blood culture positive for coagulase-negative staph [not lugdunensis] resistance to oxacillin/multidrug resistance ECHO:No evidence of vegetation. Patient had been afebrile. -Repeat blood culture 04/02 -ve for any growth. Vancomycin discontinued Likely contaminant Continue prednisone taper Pulmonary hypertension: Pericardial effusion 04/01 Echo showing EF greater than 70% with grade 1 diastolic dysfunction. RV systolic pressure severely elevated at greater than 60 mmHg. Small loculated pericardial effusion, may suggest increased chronicity/stability. No tamponade physiology on echo. S/P right heart cath 04/16/2021 which showed mild to moderate precapillary pulmonary hypertension with a mean pulmonary artery pressure of 27 mmHg. PCWP of 11 mmHg. Pulmonary vascular resistance of 4.75 Tyson units. Imdur discontinued. Continue sildenafil 20mg tid on discharge Needs pulm rehab Anxiety: Slowly Improving Continue zoloft 50mg Continue hydroxyzine prn Herpes Zoster: Completed valtrex x7d on 04/08. Diabetes Mellitus Type II: HbA1C 12.4 02/2021 Lantus/Novolog per protocol Hypertension Stable Continue current medications. DVT prophylaxis: SQ Lovenox Code Status Full Code Disposition Rehab Admission and Anticipated Discharge Date Admission Date: March 30, 2021 Subjective Patient is seen and examined bedside States having dyspnea on exertion which is slowly improving Denies chest pain, cough, dizziness, nausea, abdominal pain Plan to be discharged to rehab facility today Offers no other complaints Review of Systems Review of Systems: All systems reviewed & are unremarkable except as noted in Subjective Physical Exam Physical Exam: Physical Exam: Vitals signs as noted above General Appearance:Morbidly obese, no apparent distress Head: normocephalic, Atraumatic Eyes: normal inspection, EOMI Neck: supple, Trachea midline Respiratory/Chest: Decreased breath sounds, CTA, No accessory muscle use Cardiovascular: S1, S2, No murmur Abdomen/GI:Soft, Non tender, Bowel sounds present Extremities/Musculoskeletal:normal inspection, Trace edema Neurologic/Psych:AAOX3, grossly no focal neurological deficits Skin: normal color, warm Results & Data Results & Data ([facility]) Vital Signs (Past 12 Hours) Vital Signs Temp Pulse Resp BP BP Pulse Ox 04/22/21 11:30 36.3 C L 86 18 138/72 95 04/22/21 07:47 36.7 C 76 18 154/86 H 96 04/22/21 02:44 36.6 C 75 18 139/82 95 Laboratory Results [facility] 04/22/21 06:43 Sodium 143 Potassium 3.4 L Chloride 107 Carbon Dioxide 30 BUN 23 H Creatinine 0.49 L Glucose 135 H Calcium 8.6
--- NOTE | 2021-04-22 13:45 | Discharge Summary ---
Date of Service April 22, 2021 Admission HPI Per Admitting Provider 65 year old female with PMH IDDM and other problems listed below who presents to the ED for evaluation of shortness of breath. Recently admitted to [facility] 03/05 - 03/25 for acute hypoxic respiratory failure due to COVID 19 pneumonia. Patient completed courses of dexamethasone and remdesivir while admitted. She was discharged home on 4L O2 continuous. Patient reports having shortness of breath with minimal exertion. Has been monitoring pulse ox at home and reports with a short ambulation, she would desaturate into the 70s and would take a long time to recover. She has had a cough productive for white sputum. She also reports rhinorrhea. No fevers or chills. Denies chest pain. No lightheadedness, dizziness, diaphoresis, or syncopal events. Has had a poor appetite for the past few days. No abdominal pain, nausea, vomiting, or diarrhea. Denies urinary symptoms. Upon arrival to the ED, patient was in respiratory distress. She was placed on CPAP but did not tolerate the mask. She was then placed on [place], 40L 90% FiO2. CTA negative for large PE however shows worsening consolidation and Pneumomediastinum. Patient continues to test positive for COVID 19. Admission Exam Per Admitting Provider Physical Exam Constitutional: well developed, well nourished and + ill appearing; no acute distress Eyes: PERRL, conjunctivae normal, anicteric sclerae ENMT: Ears: no external ear abnormality Nose: no external nose abnormality Mouth: + dry oral mucous membranes Respiratory: normal respiratory effort; no respiratory distress Auscultation: + diminished lung sounds Cardiovascular: Rate/Rhythm: regular rhythm and + tachycardic Vessels: normal peripheral pulses Extremities: + edema (+1 edema BLE) Gastrointestinal (Abdomen): normal bowel sounds, soft, nontender, no hepatosplenomegaly Musculoskeletal: no cyanosis or clubbing, extremities motor strength 5/5 Skin: no rashes, warm and dry Neurologic: PERRL, EOMI, accommodation nl, no face palsy, no dysarthria Psychiatric: A+Ox3, euthymic affect Principal Diagnosis Acute on chronic respiratory failure with hypoxia COVID-19 Pneumonia Late phase ARDS Pneumomediastinum Pulmonary hypertension Anxiety Discharge Data Allergies Allergy/AdvReac Type Severity Reaction Status Date / Time No Known Allergies Allergy Unknown Verified 03/30/21 15:10 Consultations 03/30/21 15:00 ED Decision to Admit Stat 03/30/21 16:35 Consult Pulmonology Routine 03/31/21 16:07 Consult Cardiology Routine 04/14/21 10:19 Consult Infectious Diseases Routine 04/14/21 18:59 Consult Palliative Care Routine Procedures Performed Operation Date: 04/16/21 12:00 Actual Procedures p Right Heart Cath Only - Sadiq Slaughter DO s Cineradiography w/Routine Exam - Sadiq Slaughter DO Ordered Studies 03/30/21 13:19 CT angio chest PE protocol Stat 04/16/21 06:38 CL Cath Imgs for PACS use only Routine Hospital Course (1) Acute on chronic respiratory failure with hypoxia: (2) Gram-positive bacteremia: (3) Anxiety: Patient is a 65 yr female with PMH of asthma, DM, CHF, GERD, and recent ED 03/05 visit for Covid [03/05-03/25] who had fairly stayed stable on 4 to 5 L oxygen for many days prior to discharge presented again to our ED 03/30 with worsening shortness of breath. Patient had completed courses of dexamethasone and remdesivir in her prior admission and was discharged in stable condition on 4 L continuous nasal cannula oxygen. Acute on chronic respiratory failure with hypoxia: H/O COVID-19 Pneumonia Late phase ARDS: Pneumomediastinum - resolved per CXR 04/03 and 04/04 Suspected Bacteremia: Completed courses of dexamethasone and remdesivir last admission and was discharged on 4L O2 continuous. High flow oxygen transition to nasal cannula during this admission CTA negative for large PE however shows worsening consolidation and pneumomediastinum. Procalcitonin negative CRP 5.50 at presentation Chest imaging shows severe and constant bilateral pulmonary opacities Appreciate Pulmonology Input Patient has fibrotic changes in the CT scan --> hence proning would not be beneficial at this point. Received Steroid for late phase ARDS 03/30 blood culture positive for coagulase-negative staph [not lugdunensis] r esistance to oxacillin/multidrug resistance ECHO:No evidence of vegetation. Patient had been afebrile. -Repeat blood culture 04/02 -ve for any growth. Vancomycin discontinued Likely contaminant Continue prednisone taper Pulmonary hypertension: Pericardial effusion 04/01 Echo showing EF greater than 70% with grade 1 diastolic dysfunction. RV systolic pressure severely elevated at greater than 60 mmHg. Small loculated pericardial effusion, may suggest increased chronicity/stability. No tamponade physiology on echo. S/P right heart cath 04/16/2021 which showed mild to moderate precapillary pulmonary hypertension with a mean pulmonary artery pressure of 27 mmHg. PCWP of 11 mmHg. Pulmonary vascular resistance of 4.75 Tyson units. Imdur discontinued. Continue sildenafil 20mg tid on discharge Needs pulm rehab Anxiety: Slowly Improving Continue zoloft 50mg Continue hydroxyzine prn Herpes Zoster: Completed valtrex x7d on 04/08. Diabetes Mellitus Type II: HbA1C 12.4 02/2021 Lantus/Novolog per protocol Hypertension Stable Continue current medications. DVT prophylaxis: SQ Lovenox Code Status Full Code Disposition Rehab Total Time Total Time Spent Total Time Spent (In Minutes): 45 minutes Discharge Plan Discharge Items Patient Disposition: Transfer Inpatient Rehab Fac Reason For Visit: RESP FAILURE Discharge Diagnosis: Acute on chronic respiratory failure with hypoxia COVID-19 Pneumonia Late phase ARDS Pneumomediastinum Pulmonary hypertension Anxiety Condition on Discharge: Critical Activity: Per Instructions section Exercise/Sports: Gradually increase as tolerated Non-emergency contact: Primary Care Provider and Grab Setter Call non-emergency contact if: you have any medication questions, your symptoms worsen, your pain is concerning for you and you have a fever Follow-up/Referrals: Demetrio Bravo [Primary Care Provider] - Diet: Carb Consistent or DM2 Addtl Attending Provider Instructions: Follow-up with your primary care physician Dr. Demetrio Bravo in 1 week upon discharge from rehab facility Follow-up with your front office representative in 4 to 6 weeks Continue to wean off of oxygen as able at rehab facility Complete the prednisone taper course Start taking prednisone 20 mg daily for 1 more day, then 10 mg daily for 3 days and stop Seek immediate medical attention if your symptoms reoccur or worsen Please take all medications as instructed on discharge list below. Please call if you have any questions or problems. You can reach a [facility] hospitalist on duty at [facility] 24 hours a day by calling [phone] Pending Studies at Discharge: No Stand-Alone Forms: My [facility] Skilled Items Patient informed of condition?: Yes DNR: No Discharge Level of Care: Acute rehab Communicable Disease: No Discharge Prognosis: Stable Lines: None Urinary Catheter: No Medications and DC Order Prescriptions: New levalbuterol HCl 1.25 mg/3 mL Solution For Nebulization 1.25 mg NEB Q4H PRNQty: 0 RF: 0 sildenafil (pulm.hypertension) [Revatio] 20 mg Tablet 20 mg PO TID Qty: 0 RF: 0 hydroxyzine HCl 25 mg Tablet 25 mg PO TID PRNQty: 0 RF: 0 metoprolol succinate 25 mg Tablet Extended Release 24 Hr 12.5 mg PO TID Qty: 0 RF: 0 sertraline 50 mg Tablet 50 mg PO QAM Qty: 0 RF: 0 sennosides-docusate sodium [Senokot-S] 8.6-50 mg Tablet 1 tab PO QAM Qty: 0 RF: 0 prednisone 20 mg Tablet 20 mg PO UD Qty: 0 RF: 0 Continued fluticasone propionate 50 mcg/actuation spray,suspension 1 spray INTRANASAL UD RF: 0 melatonin 3 mg Tablet 3 mg PO HS PRN (Reason: insomnia) 30 Days Qty: 30 RF: 0 benzonatate [Tessalon Perles] 100 mg Capsule 100 mg PO TID 7 Days Qty: 21 RF: 0 Novolin 70-30 FlexPen U-100 100 unit/mL (70-30) insulin pen 30 unit subcut DAILY Qty: 15 RF: 0 Novolin 70-30 FlexPen U-100 100 unit/mL (70-30) insulin pen 15 unit subcut QPM Qty: 9 RF: 0 Discharge Orders: Discharge Order (Routine); Ordered 04/22/21 Ordered By: Juan Pablo Abbott Admission Data Admit Date/Time: 03/30/21 18:33 Attending Provider: Juan Pablo Abbott Admit Provider: Jean Vincent Primary Care Provider: Demetrio Bravo Other Providers: Alpesh Kitchen ; Jean Vincent ; Zach Perez ; Charles Ribera ; Chasity Pisano ; Mansoor Ness I. ; Zana Mendoza II ; Kassie Hernandez ; Albert Ruvalcaba ; Ross Jerome ; [facility] ; Allyson Aviles ; Luciana Nunn Alpine
--- NOTE | 2021-04-29 10:05 | Coding Query ---
CODING QUERY To promote full compliance with coding requirements relating to patient care, provider participation is requested in all cases of adoption agent uncertainty. Please assist us with the question(s) below: Coding Question(s): There is documentation of 2019 novel coronavirus-infected pneumonia on the ER, then H&P documents History of Covid-19 and Post-Covid syndrome, then Pulmonary document history of Covid-19, Progress Notes document history of Covid-19 and Post-Covid Syndrome, and later Progress Notes, example PN 04/03 document, " Acute on chronic respiratory failure with hypoxia: 2/2 covid pneumonia" and also document, Post-Covid Syndrome, the ID Consultation documents Covid-19 with Pneumonia and ARDS, and Cardiology Progress Note on 04/15 documents Pneumonia due to 2019 novel coronavirus, and the Discharge Summary documents, "Covid-19 Pneumonia". Covid-19 testing on this admission was positive on 03/30 and negative on 04/14. Please specify below, in your clinical opinion, regarding Covid-19 and Covid-19 Pneumonia. ( ) COVID-19 with COVID-19 Pneumonia - active infection during this admission ( ) COVID-19 Infection with NO Pneumonia - active infection during this admission (x ) NO Active Covid-19 infection or Pneumonia during this admission. Post Covid Syndrome only. ( ) Other: Please Specify Physician's Response(s): Thank you Letitia Moulton Principal Diagnosis: "that condition established after study, to be chiefly responsible for occasioning the admission of the patient to the hospital for care." Co-Existing Principal Diagnosis: "when two or more diagnoses equally meet the criteria for principal diagnosis as determined by the circumstances of admission, diagnostic work up, and/or therapy provided, and the Alphabetic Index, Tabular List, or another coding guideline does not provide sequencing direction, any one of the diagnoses may be sequenced first." "When the physician has documented what appears to be a current diagnosis in the body of the record, but has not included the diagnosis in the final diagnostic statement, the physician should be asked whether the diagnosis should be added." (Source Coding Clinic 2 QTR90. p3-4) ANANYA
--- NOTE | 2021-04-29 10:12 | Coding Query ---
CODING QUERY To promote full compliance with coding requirements relating to patient care, provider participation is requested in all cases of drying tumbler operator uncertainty. Please assist us with the question(s) below: Coding Question(s): Pulmonary Hypertension is documented in the chart and on Discharge Summary. The Pulmonary Progress Note on 04/19 documents, "Found to have pulmonary hypertension this admission on right heart catheterization likely secondary to an ILD-like picture from COVID-19 viral pneumonia". Please specify below, in your clinical opinion. ( ) Agree with Pulmonary - "Found to have pulmonary hypertension this admission on right heart catheterization likely secondary to an ILD-like picture from COVID-19 viral pneumonia". Please specify further below" ( ) Covid-19 viral pneumonia - Current infection causing the pulmonary hypertension ( ) Covid-19 viral pneumonia - no current infection - the pulmonary hypertension is sequela of past covid-19 pneumonia infection ( ) Disagree with Pulmonary and the Pulmonary Hypertension is due to Other: Please Specify ( ) Disagree with Pulmonary and the Pulmonary Hypertension is due to Unknown source ( ) Other: Please Specify Physician's Response(s): pulmonary hypertension likely secondary to an ILD-like picture from COVID-19 viral pneumonia Thank you Letitia Moulton Principal Diagnosis: "that condition established after study, to be chiefly responsible for occasioning the admission of the patient to the hospital for care." Co-Existing Principal Diagnosis: "when two or more diagnoses equally meet the criteria for principal diagnosis as determined by the circumstances of admission, diagnostic work up, and/or therapy provided, and the Alphabetic Index, Tabular List, or another coding guideline does not provide sequencing direction, any one of the diagnoses may be sequenced first." "When the physician has documented what appears to be a current diagnosis in the body of the record, but has not included the diagnosis in the final diagnostic statement, the physician should be asked whether the diagnosis should be added." (Source Coding Clinic 2 QTR90. p3-4) ANANYA
== END 2021-04-22 17:50 | DRG 204 ==
LOC: ED 12:11 → 2E 18:33 → SUATTDRO 18:33 → 2E 19:41 → 2S 04-09 18:09
PROC: CLB.CRH (2021-04-16 12:00)

== ENCOUNTER 2022-01-22 10:08 | Inpatient (IN) ==
[2022-01-22] MEDS ORDERED: fentaNYL citrate 100 MCG/2 ML VIAL IV STA (10:17)
[2022-01-22] MEDS ORDERED: ONDANSETRON INJ 2 MG/ML 2 ML VIAL IV STA (10:17)
--- NOTE | 2022-01-22 10:19 | Emergency Department Note ---
Impression & Plan Tibial plateau fracture, right, Femoral condyle fracture ED Provider Note Name: HARRIET AGUILA Age: 66 Sex: F Arrives Via: Ambulance Informant: Patient ED Provider: Demetrio Otra MD Chief Complaint: Right knee pain Impression: As per impressions above Medical Decision Makin-year-old female with complex past medical history including severe lung d isease following COVID-19 hospitalization for 3 months last year. She also has a history of hypertension, type 2 diabetes, obesity, pulmonary hypertension, CHF, GERD. She arrives for evaluation of right knee pain following a slip and fall landing on her right knee. She has no headache, neck pain or other neurologic deficits. There is no indication for CT imaging of the head and neck at this time. She denies any nonmechanical cause of this fall and states she slipped on the floor. She has no significant pain in the right hip or mid thigh. She does have severe pain in the right knee with a developing effusion. Some tenderness to palpation of the upper esparza as well. Imaging of the knee and tib-fib reveals tibial plateau fracture via x-rays. CT of the knee does reveal a medial femoral condyle fracture along with a tibial plateau fracture. Patient is requiring multiple rounds of IV narcotics and had not feel that tolerate going home very well. We are unable to place her in rehab at this time. Hospitalist was consulted for further management. I furthermore discussed the case with orthopedics who noted a hinged knee brace would be optimal but until that is acquired and a knee immobilizer is reasonable. Prior Medical Record and Triage/Nursing Notes reviewed by Me Additional history obtained from chart Differentials: Fracture, subluxation, dislocation, contusion, ligamentous injury, neurovascular, compartment syndrome, rhabdomyolysis, as well as other pathologies. Vital Signs: reviewed and remarkable for no significant abnormalities Interventions: Fentanyl 75 mcg IV, Dilaudid 0.5 mg IV, Dilaudid 1 mg IV Labs:Reviewed and remarkable for no significant abnormalities Imaging:X-rays of the right knee and tib-fib revealed tibial plateau fracture as per radiologist and reviewed by me. CT of the right knee reveals medial condyle fracture and tibial plateau fracture as per radiologist read Consults:Sofia Johanseny hospitalist and orthopedics consulted Plan: Disposition:Hospitalization. Condition: Good History of Present Illness:66-year-old female arrives for evaluation of right knee pain. Patient slipped on a wet floor and landed on her right knee. Notes immediate right knee and right esparza pain. Unable to walk due to the pain. No nausea, vomiting, hip pain, head injury, headache, neck plain. No medications prior to arrival. Arrives via EMS. She is not on any blood thinners. She does not take aspirin daily. No previous injury to the knee. ROS: See above HPI for pertinent positives & negatives. A total of 8 systems reviewed and were otherwise negative. Past Medical History:See Below Past Surgical History:See Below Family History:See Below Social History:See Below Home Medications:See Below Allergies:nkda Vitals:Blood Pressure: 154/70, Pulse 95, RR 22, T 37.0 C, O2 92% on RA Physical Exam: GENERAL: Patient is very uncomfortable appearing and in moderate distress. EYES: No scleral icterus, unremarkable pupils. ENT: Mucous membranes moist, no nasal congestion. NECK: No masses appreciated, nomeningismus, trachea is midline. RESPIRATORY: No dyspnea. Clear to auscultation and equal bilaterally. No wheeze, no rhonchi. CARDIOVASCULAR: Regular rate and rhythm.No murmurs, rubs, gallops appreciated. GASTROINTESTINAL: Abdomen soft, non-tender, no peritonitis.Bowel sounds positive.No masses appreciated. BACK: No midline tenderness, no CVA tenderness EXTREMITIES: Swelling and deformity right knee held at 20 degrees, severe pain with palpation & any attempt at ROM. Distal n/v intact. Normal motion all extremities, no cyanosis, no edema. NEUROLOGIC: Alert and oriented, no acute motor or sensory deficits, no focal weakness, cranial nerves grossly intact. SKIN: No rash, no jaundice, no diaphoresis. PSYCH: Appropriate GCS: 15 ED Course: Times/Reassessments: Gradually improving with IV narcotics though requiring multiple rounds. Agreeable to hospitalization Demetrio Orta MD Past Med/Surg History Medical History (Updated 01/23/22 @ 08:14 by Demetrio Orta MD) ARDS survivor Asthma CHF (congestive heart failure) Chronic respiratory failure with hypoxia Diabetes Dysphagia GERD (gastroesophageal reflux disease) No pertinent family history Obstructive sleep apnea Pulmonary hypertension Surgical History No pertinent past surgical history Social History Smoking Status: Former smoker Tobacco Type: Cigarettes Hx Alcohol Use: Yes Alcohol type: beer Hx Substance Use: No Preferred Language: German Communication Ability: Effective Lease Buyer Required: No Beliefs That Will Affect Care: None Current Living Situation: Family Feels Safe at Home: Yes Safety Concerns: Feels Safe At This Time Assistive Devices: Oxygen - Continuous Allergies Allergies Allergy/AdvReac Type Severity Reaction Status Date / Time No Known Allergies Allergy Unknown Verified 01/14/22 10:03 Home Meds Previous Rx's Medication Instructions Recorded insulin NPH-regular 70-30 U-100 15 unit (0.15 mL) subcut QPM #9 mL 03/25/21 insulin 100 unit/mL subcutaneous pen (Novolin 70-30 FlexPen U-100 Insulin) insulin NPH-regular 70-30 U-100 30 unit (0.3 mL) subcut DAILY #15 03/25/21 insulin 100 unit/mL subcutaneous mL pen (Novolin 70-30 FlexPen U-100 Insulin) levalbuterol HCl 1.25 mg/3 mL 1.25 mg (3 mL) NEB Q4H PRN #0 mL 04/22/21 solution for nebulization metoprolol succinate 25 mg 12.5 mg PO TID #0 tabs 04/22/21 tablet,extended release 24 hr sennosides 8.6 mg-docusate sodium 1 tab PO QAM #0 tabs 04/22/21 50 mg tablet (Senokot-S) sildenafil (pulm.hypertension) 20 20 mg PO TID #0 tabs 04/22/21 mg tablet (Revatio) albuterol sulfate 90 mcg/actuation 2 inh inhalation QID PRN shortness 09/02/21 aerosol inhaler of breath or wheezing #8.5 grams furosemide 20 mg tablet (Lasix) 20 mg PO DAILY #30 tabs 09/02/21 CPAP Machine #1 ea 01/21/22 CPAP Supplies #1 ea 01/21/22 nebulizer accessories #1 ea 01/21/22 nebulizer and compressor #1 ea 01/21/22 Results & Data (ED) Vital Signs Vital Signs - 24 hr 01/22/22 10:20 01/22/22 12:29 Temperature 36.8 C Temperature Source Oral Pulse Rate 96 H Pulse Rate [Apical] 77 Pulse Rhythm Regular Pulse Strength Normal Respiratory Rate 16 20 Respiratory Effort / Characteristics Non-Labored Spontaneous Respiratory Depth Normal Blood Pressure 116/61 Blood Pressure [Right Arm] 167/89 H Blood Pressure Mean 79 Blood Pressure Mean [Right Arm] 115 Blood Pressure Position Lying Pulse Oximetry 96 95 Oxygen Delivery Method Room Air Nasal Cannula Oxygen Flow Rate 1 Sepsis Recent Fever Within 48 Hours No Sepsis New/Unexplained Change in Mental Status No Sepsis Action Taken by Nursing No Action Required Laboratory Data Result diagrams: 01/23/22 05:35 01/23/22 05:35 Lab Results 01/22/22 01/22/22 01/22/22 Range/Units 10:30 10:30 13:01 WBC 11.46 H (4.8-10.8) K/ul RBC 4.31 (3.93-5.22) M/uL Hgb 14.1 (12.0-16.0) g/dl Hct 39.7 (34.1-44.9) % MCV 92.1 (80.0-100.0) fL MCH 32.7 (25.0-34.0) pg MCHC 35.5 (32.0-36.0) g/dL RDW Std Deviation 44.7 (36.4-46.3) fL RDW Coeff of Ralf 14.1 (11.5-14.5) % Plt Count 360 (130-400) K/uL MPV 11.2 (9.4-12.3) fL Immature Gran % (Auto) 0.4 % Neut % (Auto) 73.8 % Lymph % (Auto) 18.7 % [place] % (Auto) 5.5 % Eos % (Auto) 1.3 % Baso % (Auto) 0.3 % Neut # (Auto) 8.45 H (1.4-6.5) K/uL Lymph # (Auto) 2.14 (1.2-3.4) K/uL [place] # (Auto) 0.63 (0.24-0.82) K/uL Eos # (Auto) 0.15 (0-0.50) K/uL Baso # (Auto) 0.04 (0-0.2) K/uL Immature Gran # (Auto) 0.05 H (0.00-0.02) K/uL Sodium 135 L (136-145) mmol/L Potassium 4.2 (3.5-5.1) mmol/L Chloride 100 (98-107) mmol/L Carbon Dioxide 26 (21-32) mmol/L Anion Gap 9 (3-11) BUN 8 (6-23) mg/dl Creatinine 0.64 (0.6-1.2) mg/dl Est Cr Clr Drug Dosing 92.4 ml/min Est GFR ( Amer) 107.8 ml/min Est GFR (Non-Af Amer) 93.0 ml/min BUN/Creatinine Ratio 12.5 (10-20) Glucose 264 H (70-99(Fasting)) mg/dl Calcium 8.6 (8.5-10.1) mg/dl SARS-CoV-2, RNA, NAAT NEGATIVE (NEGATIVE) Administered Medications Acetaminophen (Acetaminophen 325 Mg Tab) 650 mg PO Q4H PRN PRN Reason: pain/fever Stop: 02/21/22 16:25 Last Admin: 01/22/22 18:13 Dose: 650 mg Documented By: TUSHAR Diphenhydramine HCl (Diphenhydramine 50 Mg/Ml Vial) 12.5 mg IV Q8H PRN PRN Reason: nausea, second line to zofran Stop: 02/21/22 16:25 Last Admin: 01/22/22 20:47 Dose: 12.5 mg Documented By: RODRIGUE Insulin Aspart (Insulin Aspart Per Unit) 0 units SC ACHS [facility] Stop: 02/21/22 16:29 Last Admin: 01/22/22 21:31 Dose: 4 units Documented By: RODRIGUE Co-signed By: MITCH Admin: 01/22/22 18:09 Dose: 2 units Documented By: TUSHAR Co-signed By: NNAMDI Insulin Glargine (Lantus Per Unit Charge) 8 units SQ BID [facility] Stop: 02/21/22 20:59 Last Admin: 01/22/22 21:31 Dose: 8 units Documented By: RODRIGUE Co-signed By: MITCH Metoprolol Succinate (Metoprolol Succ 25mg Ext Rel Tab) 12.5 mg PO TID [facility] Stop: 02/21/22 20:59 Last Admin: 01/23/22 07:13 Dose: 12.5 mg Documented By: Admin: 01/22/22 21:39 Dose: 12.5 mg Documented By: RODRIGUE Miconazole Nitrate (Miconazole Nitrate-7 (100 Mg Ea Supp) Box) 1 supp PV HS [facility] Stop: 01/29/22 20:59 Last Admin: 01/22/22 21:35 Dose: 1 supp Documented By: RODRIGUE Ondansetron HCl (Ondansetron Inj 2 Mg/Ml 2 Ml Vial) 4 mg IV Q6H PRN PRN Reason: Nausea Stop: 02/21/22 16:25 Last Admin: 01/22/22 19:15 Dose: 4 mg Documented By: SONYA Sildenafil Citrate (Sildenafil Citrate 20 Mg Tablet) 20 mg PO TID [facility] Stop: 02/21/22 20:59 Last Admin: 01/23/22 07:13 Dose: 20 mg Documented By: Admin: 01/22/22 21:35 Dose: 20 mg Documented By: RODRIGUE Discontinued Medications Diphenhydramine HCl (Diphenhydramine 50 Mg/Ml Vial) 12.5 mg IV ONE ONE Stop: 01/22/22 14:31 Last Admin: 01/22/22 15:01 Dose: 12.5 mg Documented By: MEAGAN Fentanyl Citrate (Fentanyl Citrate 100 Mcg/2 Ml Vial) 75 mcg IV NOW STA Stop: 01/22/22 10:18 Last Admin: 01/22/22 10:35 Dose: 75 mcg Documented By: RADHA Hydromorphone HCl (Hydromorphone Inj 0.5 Mg/0.5 Ml Syr) 0.5 mg IV NOW STA Stop: 01/22/22 11:41 Last Admin: 01/22/22 11:56 Dose: 0.5 mg Documented By: MEAGAN Hydromorphone HCl (Hydromorphone Inj 1 Mg/Ml Syringe) 1 mg IV NOW STA Stop: 01/22/22 12:59 Last Admin: 01/22/22 13:03 Dose: 1 mg Documented By: MEAGAN Insulin Aspart (Insulin Aspart Per Unit) 0 units SC ACHS [facility] Stop: 01/22/22 15:01 Last Admin: 01/22/22 15:02 Dose: 2 units Documented By: MEAGAN Co-signed By: MARCIO Ondansetron HCl (Ondansetron Inj 2 Mg/Ml 2 Ml Vial) 4 mg IV NOW STA Stop: 01/22/22 10:18 Last Admin: 01/22/22 10:35 Dose: 4 mg Documented By: RADHA Oxycodone HCl (Oxycodone Hcl Ir 5 Mg Tab (Immediate Release)) 5 mg PO NOW STA Stop: 01/22/22 22:06 Last Admin: 01/22/22 22:11 Dose: 5 mg Documented By: RODRIGUE Oxycodone HCl (Oxycodone Hcl Ir 5 Mg Tab (Immediate Release)) 5 mg PO NOW STA Stop: 01/23/22 04:24 Last Admin: 01/23/22 04:36 Dose: 5 mg Documented By: RODRIGUE Discharge Plan Visit Data Chief Complaint: Fall Stated Complaint: FALL, R LOWER LEG PAIN ED Provider: Demetrio Orta Discharge Problem: Tibial plateau fracture, right, Femoral condyle fracture Patient Disposition: Admitted As Inpatient Discharge Instructions Interventions: ED Discharge Assessment Last Done: 01/22/22 15:53
--- NOTE | 2022-01-22 11:22 | XRay Report ---
XR knee RT 3V, XR tibia fibula RT 2V CLINICAL HISTORY: fall, knee pain. Right lower leg pain. COMPARISON STUDY: None. FINDINGS: There is a moderate lipohemarthrosis. There is nondisplaced vertical fracture at the medial tibial plateau which extends to the articular surface. Anterior soft tissue swelling within the knee . No radiopaque foreign bodies. Patchy areas of sclerosis within the medial tibial plateau and femora l condyles likely represent avascular necrosis. No evidence for articular collapse. The distal tibia and fibula are intact. There is a plantar heel spur. IMPRESSION: 1. Nondisplaced medial tibial plateau fracture. 2. Moderate lipohemarthrosis. 3. The distal tibia and fibula are intact. 4. Patchy sclerosis within the medial tibial plateau and femoral condyles likely represents avascular necrosis. ACT 112: Negative or not required by law. Electronically signed by: Caden Dietrich M.D. 01/22/2022 11:21 AM
[2022-01-22] MEDS ORDERED: HYDROmorphone INJ 0.5 MG/0.5 ML SYR IV STA (11:40)
[2022-01-22 12:25] LABS: Basophils # (auto) 0.04 K/uL (0-0.2); Basophils % (auto) 0.3 %; Eosinophils # (auto) 0.15 K/uL (0-0.50); Eosinophils % (auto) 1.3 %; Hematocrit (blood only) 39.7 % (34.1-44.9); Hemoglobin 14.1 g/dl (12.0-16.0); Immature Granulocytes # (auto) 0.05 K/uL (0.00-0.02); Immature Granulocytes % (auto) 0.4 %; Lymphocytes # (auto) 2.14 K/uL (1.2-3.4); Lymphocytes % (auto) 18.7 %; Mean Corpuscular Hemoglobin 32.7 pg (25.0-34.0); Mean Corpuscular Hgb Conc 35.5 g/dL (32.0-36.0); Mean Corpuscular Volume 92.1 fL (80.0-100.0); Mean Platelet Volume 11.2 fL (9.4-12.3); Monocytes # (auto) 0.63 K/uL (0.24-0.82); Monocytes % (auto) 5.5 %; Neutrophils # (auto) 8.45 K/uL (1.4-6.5); Neutrophils % (auto) 73.8 %; Platelet Count 360 K/uL (130-400); RDW Coefficient of Variation 14.1 % (11.5-14.5); RDW Standard Deviation 44.7 fL (36.4-46.3); Red Blood Count 4.31 M/uL (3.93-5.22); White Blood Count 11.46 K/ul (4.8-10.8)
[2022-01-22 12:36] LABS: BUN Creatinine Ratio 12.5 (10-20); Calcium 8.6 mg/dl (8.5-10.1); Creatinine Clr Calc Pharmacy 92.4 ml/min; Est GFR (African American) 107.8 ml/min; Potassium 4.2 mmol/L (3.5-5.1)
[2022-01-22] MEDS ORDERED: HYDROmorphone INJ 1 MG/ML SYRINGE IV STA (12:58)
--- NOTE | 2022-01-22 13:05 | CT Scan Report ---
CT knee RT wo con HISTORY: 66 years-old Female right knee trauma acute right-sided knee pain COMPARISON: Right knee radiographs of same day TECHNIQUE: Multiple axial CT images of the right knee were obtained without the use of IV contrast. A dditional 3-D rendering images were generated from a separate workstation. A dose lowering technique was used consistent with the principals of MADYSON. FINDINGS: There is a moderate sized lipohemarthrosis of the knee. Mild nonspecific anterior subcutaneous edema. The musculature is within normal limits. Mild arterial calcifications. 3 mm cortical depression with out displacement involving the medial tibial plateau likely represents an acute nondisplaced fracture . There is an acute minimally comminuted fractures involving the medial cortex of the medial femoral condyle (image 61 series 2). Fracture fragments are displaced medially approximately 3 mm. The patell a and proximal fibula appear intact. Bone infarct of the proximal tibial metaphysis is noted medially with additional bone infarcts/avascular necrosis present within the medial and lateral femoral condy les. No resultant articular collapse. Demineralized appearance of the bones. Ligaments and tendons ar e not well evaluated by CT technique. Dystrophic suprapatellar calcifications are noted within the di stal quadriceps. Minimal tricompartmental osteoarthritis. No additional acute fracture IMPRESSION: 1. Acute minimally comminuted and slightly displaced fracture involves the medial cortex of the media l femoral condyle. 2. 3 mm cortical depression of the medial plateau is suggestive of an additional acute fracture. 3. Moderate sized lipohemarthrosis. 4. Bone infarcts/avascular necrosis of the knee. ACT 112: Negative or not required by law. The above report was generated using voice recognition software. It may contain grammatical, syntax o r spelling errors. Electronically signed by: Jessee Llamas M.D. 01/22/2022 1:03 PM
--- NOTE | 2022-01-22 13:56 | History & Physical Report ---
Date of Service January 22, 2022 Assessment & Plan (1) Femoral condyle fracture: Plan: Femoral condyle fracture, right - Recommended for admit for placement eval and pain control - APAP 650mg Q6H - Defer toradol in setting of hemearthrosis - Hydromorphine 0.5mg-1mg Q3H PRN for breakthrough - Ortho consulted, pending recommendations. Suspect non-operative. Nonweightbearing with brace at this time CT knee: Acute minimally comminuted and slightly displaced fracture of the medial cortex/medial femoral condyle. 3 mm cortical depression of medial plateau. Moderate lipohemarthrosis. Bone infarct/avascular necrosis of the knee Tib/fib x-ray: Nondisplaced medial tibial plateau fracture. Moderate lipohemarthrosis. Distal tib/fib intact. Patchy sclerosis consistent with avascular necrosis. - PT/OT pending, require placement Platelets 360 Hemoglobin 14.1 Leukocytosis 11.46, likely reactive Sodium 135 COVID negative Zofran first-line for nausea with narcotics, may use Benadryl every 8 hours for breakthrough nausea. Neurovascularly intact on exam, continue neurochecks overnight Type II DM Hold home Novolin 70/30 15 units every afternoon, 30 units daily. Convert to basal bolus. Glucose checks AC/at bedtime Goal BSG [id number] - Home TDD ~45u --> Lantus 8 BID, CF 50, CR 17; Weight based: Lantus 8 BID, CF 45, Ratio 15 -We will order for Lantus 8 BID, CF 50 CR17 Pulmonary hypertension Multifactorial with chronic hypoxic respiratory failure, post COVID ARDS, and PARRIS Last seen by pulmonology 01/21/2022 Continue Revatio 20 mg 3 times daily, Lasix 20 mg, repeat echo following CPAP compliance CTchest shows post COVID/ARDS fibrosis. PARRIS/pHTN - CPAP qHS. Patient poorly tolerant to masks, has been able to tolerate nasal pillow if available HTN - Continue MTP Elevated in the setting of pain, adequately controlled with adequate pain control DVT prophylaxis: SCDs, deferred pharmacal prophylaxis in the setting of acute hemarthrosis Diet: DM Disposition: Medical/surgical (2) Chronic respiratory failure with hypoxia: (3) Obstructive sleep apnea: (4) Pulmonary hypertension: (5) ARDS survivor: (6) Anxiety: (7) HTN (hypertension): (8) DMII (diabetes mellitus, type 2): (9) Asthma: (10) CHF (congestive heart failure): (11) GERD (gastroesophageal reflux disease): (12) Diabetes: History of Present Illness Primary Care Provider: NO PCP Zaira He is a 66-year-old female with a past medical history of ARDS, asthma, CHF, chronic respiratory failure with hypoxia, DM, dysphagia, GERD, PARRIS, pulmonary hypertension who sustained a fall to a wet floor with immediate right knee and esparza pain, and inability to ambulate following. Zaira was reportedly cleaning up after her dog when she slipped in a puddle of urine causing her to fall to her right knee with immediate knee/esparza pain and inability to ambulate. No syncope/presyncope/shortness of breath/chest pain/chest pressure/lightheadedness/dizziness that caused the fall, mechanical in nature. No nausea/vomiting/diarrhea/constipation before admission, does have nausea and some slight itching after narcotic pain control was given + Knee +nausea since receiving narcotics, no nausea prior to this no diarrheano abdominal pain Does have pulmonary hypertension and fibrosis, gradually improving. Uses 1 L of oxygen at night and as needed during the day, no change in her oxygen requirements recently. Saw pulmonology yesterday and feels she is actually gradually improving. Does have pulmonary hypertension for which she is waiting to be set up with a CPAP machine and has not started this yet. 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 Repeat echo after she is able to receive this and compliant. Last echo in July with preserved ejection fraction. Does use Lasix as needed for leg swelling, reports she has not had increased leg swelling prior to her fall Medical History: Reviewed Medications: Reviewed Surgical History: Reviewed Allergies: Reviewed Social History: No tobacco or alcohol use. Code Status:[phone] Victor Manuel He would be surrogate. [place] per pt. Allergies Allergy/AdvReac Type Severity Reaction Status Date / Time No Known Allergies Allergy Unknown Verified 01/14/22 10:03 Home Medications Medication Instructions Recorded Confirmed Type insulin NPH-regular 70-30 U-100 15 unit (0.15 mL) subcut QPM #9 mL 03/25/21 01/14/22 Rx insulin 100 unit/mL subcutaneous pen (Novolin 70-30 FlexPen U-100 Insulin) insulin NPH-regular 70-30 U-100 30 unit (0.3 mL) subcut DAILY #15 03/25/21 01/14/22 Rx insulin 100 unit/mL subcutaneous mL pen (Novolin 70-30 FlexPen U-100 Insulin) levalbuterol HCl 1.25 mg/3 mL 1.25 mg (3 mL) NEB Q4H PRN #0 mL 04/22/21 01/14/22 Rx solution for nebulization metoprolol succinate 25 mg 12.5 mg PO TID #0 tabs 04/22/21 01/14/22 Rx tablet,extended release 24 hr sennosides 8.6 mg-docusate sodium 1 tab PO QAM #0 tabs 04/22/21 01/14/22 Rx 50 mg tablet (Senokot-S) sildenafil (pulm.hypertension) 20 20 mg PO TID #0 tabs 04/22/21 01/14/22 Rx mg tablet (Revatio) albuterol sulfate 90 mcg/actuation 2 inh inhalation QID PRN shortness 09/02/21 01/14/22 Rx aerosol inhaler of breath or wheezing #8.5 grams furosemide 20 mg tablet (Lasix) 20 mg PO DAILY #30 tabs 09/02/21 01/14/22 Rx CPAP Machine #1 ea 01/21/22 01/21/22 Rx CPAP Supplies #1 ea 01/21/22 01/21/22 Rx nebulizer accessories #1 ea 01/21/22 01/21/22 Rx nebulizer and compressor #1 ea 01/21/22 01/21/22 Rx Past Med/Surg History Medical History (Updated 01/22/22 @ 14:42 by Obie Malone MD) ARDS survivor Asthma CHF (congestive heart failure) Chronic respiratory failure with hypoxia Diabetes Dysphagia GERD (gastroesophageal reflux disease) No pertinent family history Obstructive sleep apnea Pulmonary hypertension Surgical History No pertinent past surgical history Social History Smoking Status: Never smoker Tobacco Type: Cigarettes Hx Alcohol Use: No Hx Substance Use: No Preferred Language: [place] Leonean Communication Ability: Effective E Commerce Developer Required: No Beliefs That Will Affect Care: None Current Living Situation: Spouse and Family Feels Safe at Home: Yes Assistive Devices: Oxygen - Continuous Review of Systems Review of Systems: All systems reviewed & are unremarkable except as noted in Subjective Physical Exam Physical Exam: General: A&Ox3. NAD. Cooperative. HEENT: Atraumatic, normocephalic. Vision/hearing grossly intact Pulm: Diminished,. -wheezes, -rales, -rhonchi. Symmetrical chest rise. No increase in work of breathing. No respiratory distress. On 1 L nasal cannula Cardiac: RRR, -mrg. Radial pulses intact and symmetrical. Abdominal: Nontender, nondistended, soft. BS present. Extremities: Right knee with swelling/effusion, focally tender at medial joint line with some radiating tenderness laterally. Mild tenderness to palpation at dorsum of the foot without crepitus. PT pulse intact bilaterally. Sensation of soft touch intact in feet bilaterally without asymmetry. Ankle dorsiflexion/plantarflexion and toe flexion/extension intact bilaterally. Results & Data Results & Data ([facility]) Vital Signs (Past 12 Hours) Vital Signs Temp Pulse Pulse Resp BP BP Pulse Ox 01/22/22 12:29 77 20 167/89 H 95 01/22/22 10:20 36.8 C 96 H 16 116/61 96 O2 Del Method O2 Flow Rate 01/22/22 12:29 Nasal Cannula 1 01/22/22 10:20 Room Air PG Care Time/CCT Total # of Minutes Spent Total Time Spent with Patient: Total time spent is greater than 50% in coordination of care (as documented) at patient's floor/unit and/or counseling patient: Coding Level of Care Code INT OBSERVATION CARE 50M LVL 2 Diagnoses Femoral condyle fracture S72.413A Chronic respiratory failure with hypoxia J96.11 Obstructive sleep apnea G47.33 Pulmonary hypertension I27.20 ARDS survivor Z87.09 Anxiety F41.9 HTN (hypertension) I10 DMII (diabetes mellitus, type 2) E11.9 Asthma J45.909 CHF (congestive heart failure) I50.9 GERD (gastroesophageal reflux disease) K21.9 Diabetes E11.9
[2022-01-22] MEDS ORDERED: GLUCAGON FOR INJ 1 MG VIAL SQ PRN (14:28)
[2022-01-22] MEDS ORDERED: DEXTROSE 50% 50 ML SYRINGE IV PRN (14:28)
[2022-01-22] MEDS ORDERED: GLUCOSE 10 TAB/TUBE PO PRN (14:28)
[2022-01-22] MEDS ORDERED: GLUCOSE 40% GEL 15 GM TUBE PO PRN (14:28)
[2022-01-22] MEDS ORDERED: CARBOHYDRATES FOR HYPOGLYCEMIA PO PRN (14:28)
[2022-01-22] MEDS ORDERED: diphenhydrAMINE 50 MG/ML VIAL IV ONE (14:30)
[2022-01-22] MEDS ORDERED: INSULIN ASPART PER UNIT SC SCH (15:00)
--- NOTE | 2022-01-22 15:35 | Orthopedic Consultation ---
Date of Consultation January 22, 2022 Assessment & Plan (1) Tibial plateau fracture, right: 66 year old female with right medial tibial plateau fracture, minimally displaced Plan is to treat conservatively with knee hinge brace, NWB with crutches/walker/wheel chair to assist in ambulation. May remove brace for hygiene purposes and for PT. Frequently ice, at least 20 minutes 5 times a day and elevate right leg above heart Pain control per primary PT/OT - she is able to do active/passive range of motion of knee as tolerated Recommend DVT prophylaxis once medically stable, MIRI pedroza Follow up with Dr Brunner in 2 weeks at [facility] Supervising Physician Co-Signing Physician Notes I saw and examined the patient, reviewed her imaging findings, formulated the above plan, and performed the substantive portion of the consult. Agree with above note. Feel free to contact orthopedics with any questions. History of Present Illness Reason for Consultation: Right tibial plateau fracture History of Present Illness Zaira He is a 66-year-old female with a past medical history of ARDS, asthma, CHF, chronic respiratory failure with hypoxia, DM, dysphagia, GERD, PARRIS, pulmonary hypertension who sustained a fall to a wet floor at 8:00 this morning. She reports she had immediate right knee and esparza pain, and inability to ambulate following. Most of her pain is on the medial aspect of her knee and radiates down her leg. She denies any previous injuries or surgeries to her knee. She did have previous right ankle fracture. She denies any numbness or tingling. Allergies Allergy/AdvReac Type Severity Reaction Status Date / Time No Known Allergies Allergy Unknown Verified 01/14/22 10:03 Home Medications Medication Instructions Recorded Confirmed Type insulin NPH-regular 70-30 U-100 15 unit (0.15 mL) subcut QPM #9 mL 03/25/21 01/14/22 Rx insulin 100 unit/mL subcutaneous pen (Novolin 70-30 FlexPen U-100 Insulin) insulin NPH-regular 70-30 U-100 30 unit (0.3 mL) subcut DAILY #15 03/25/21 01/14/22 Rx insulin 100 unit/mL subcutaneous mL pen (Novolin 70-30 FlexPen U-100 Insulin) levalbuterol HCl 1.25 mg/3 mL 1.25 mg (3 mL) NEB Q4H PRN #0 mL 04/22/21 01/14/22 Rx solution for nebulization metoprolol succinate 25 mg 12.5 mg PO TID #0 tabs 04/22/21 01/14/22 Rx tablet,extended release 24 hr sennosides 8.6 mg-docusate sodium 1 tab PO QAM #0 tabs 04/22/21 01/14/22 Rx 50 mg tablet (Senokot-S) sildenafil (pulm.hypertension) 20 20 mg PO TID #0 tabs 04/22/21 01/14/22 Rx mg tablet (Revatio) albuterol sulfate 90 mcg/actuation 2 inh inhalation QID PRN shortness 09/02/21 01/14/22 Rx aerosol inhaler of breath or wheezing #8.5 grams furosemide 20 mg tablet (Lasix) 20 mg PO DAILY #30 tabs 09/02/21 01/14/22 Rx CPAP Machine #1 ea 01/21/22 01/21/22 Rx CPAP Supplies #1 ea 01/21/22 01/21/22 Rx nebulizer accessories #1 ea 01/21/22 01/21/22 Rx nebulizer and compressor #1 ea 01/21/22 01/21/22 Rx Patient History Medical History (Updated 01/23/22 @ 08:14 by Demetrio Orta MD) ARDS survivor Asthma CHF (congestive heart failure) Chronic respiratory failure with hypoxia Diabetes Dysphagia GERD (gastroesophageal reflux disease) No pertinent family history Obstructive sleep apnea Pulmonary hypertension Surgical History No pertinent past surgical history Social History Smoking Status: Former smoker Tobacco Type: Cigarettes Hx Alcohol Use: Yes Alcohol type: beer Hx Substance Use: No Preferred Language: Slovak Communication Ability: Effective Glass Lathe Operator Required: No Beliefs That Will Affect Care: None Current Living Situation: Family Feels Safe at Home: Yes Safety Concerns: Feels Safe At This Time Assistive Devices: Oxygen - Continuous Physical Exam Physical Exam: General: Pt laying in hospital bed AA&O, in NAD, calm and cooperative during exam Lower Extremity: Knee immobilizer removed. Skin intact. Moderate knee effusion noted. Pt has skin lesion about the size of a dime with punctate center on the medial superior aspect of the knee. She says it has been there for a while. Pt has full ROM of ankle and all 5 digits. Pt has 3/5 strength with resisted DF/PF. SLR in tact. Calf supple and non tender. NVI with sensation to light touch distally and good distal pulses present. Lower extremity noted to have good color and temperature with no signs of vascular or lymphatic insufficiency. Knee ligaments stable with no laxity appreciated although exam slightly limited due to injury. Patient ROM limited due to acute injury, she is only able to flex about 5 degrees. Results & Data ([facility]) Vital Signs (Past 12 Hours) Vital Signs Temp Pulse Pulse Resp BP BP Pulse Ox 01/22/22 14:44 77 20 162/87 H 93 01/22/22 12:29 77 20 167/89 H 95 01/22/22 10:20 36.8 C 96 H 16 116/61 96 O2 Del Method O2 Flow Rate 01/22/22 14:44 Room Air 01/22/22 12:29 Nasal Cannula 1 01/22/22 10:20 Room Air Diagnostic Findings Knee X-Ray 01/22/22 10:17 XR knee RT 3V, XR tibia fibula RT 2V CLINICAL HISTORY: fall, knee pain. Right lower leg pain. COMPARISON STUDY: None. FINDINGS: There is a moderate lipohemarthrosis. There is nondisplaced vertical fracture at the medial tibial plateau which extends to the articular surface. Anterior soft tissue swelling within the knee. No radiopaque foreign bodies. Patchy areas of sclerosis within the medial tibial plateau and femoral condyles likely represent avascular necrosis. No evidence for articular collapse. The distal tibia and fibula are intact. There is a plantar heel spur. IMPRESSION: 1. Nondisplaced medial tibial plateau fracture. 2. Moderate lipohemarthrosis. 3. The distal tibia and fibula are intact. 4. Patchy sclerosis within the medial tibial plateau and femoral condyles likely represents avascular necrosis. ACT 112: Negative or not required by law. Electronically signed by: Caden Deitrich M.D. 01/22/2022 11:21 AM Tibia/Fibula X-Ray 01/22/22 10:17 XR knee RT 3V, XR tibia fibula RT 2V CLINICAL HISTORY: fall, knee pain. Right lower leg pain. COMPARISON STUDY: None. FINDINGS: There is a moderate lipohemarthrosis. There is nondisplaced vertical fracture at the medial tibial plateau which extends to the articular surface. Anterior soft tissue swelling within the knee. No radiopaque foreign bodies. Patchy areas of sclerosis within the medial tibial plateau and femoral condyles likely represent avascular necrosis. No evidence for articular collapse. The distal tibia and fibula are intact. There is a plantar heel spur. IMPRESSION: 1. Nondisplaced medial tibial plateau fracture. 2. Moderate lipohemarthrosis. 3. The distal tibia and fibula are intact. 4. Patchy sclerosis within the medial tibial plateau and femoral condyles likely represents avascular necrosis. ACT 112: Negative or not required by law. Electronically signed by: Caden Dietrich M.D. 01/22/2022 11:[address] 01/22/22 11:40 CT knee RT wo con HISTORY: 66 years-old Female right knee trauma acute right-sided knee pain COMPARISON: Right knee radiographs of same day TECHNIQUE: Multiple axial CT images of the right knee were obtained without the use of IV contrast. Additional 3-D rendering images were generated from a separate workstation. A dose lowering technique was used consistent with the principals of MADYSON. FINDINGS: There is a moderate sized lipohemarthrosis of the knee. Mild nonspecific anterior subcutaneous edema. The musculature is within normal limits. Mild arterial calcifications. 3 mm cortical depression without displacement involving the medial tibial plateau likely represents an acute nondisplaced fracture. There is an acute minimally comminuted fractures involving the medial cortex of the medial femoral condyle (image 61 series 2). Fracture fragments are displaced medially approximately 3 mm. The patella and proximal fibula appear intact. Bone infarct of the proximal tibial metaphysis is noted medially with additional bone infarcts/avascular necrosis present within the medial and lateral femoral condyles. No resultant articular collapse. Demineralized appearance of the bones. Ligaments and tendons are not well evaluated by CT technique. Dystrophic suprapatellar calcifications are noted within the distal quadriceps. Minimal tricompartmental osteoarthritis. No additional acute fracture IMPRESSION: 1. Acute minimally comminuted and slightly displaced fracture involves the medial cortex of the medial femoral condyle. 2. 3 mm cortical depression of the medial plateau is suggestive of an additional acute fracture. 3. Moderate sized lipohemarthrosis. 4. Bone infarcts/avascular necrosis of the knee. ACT 112: Negative or not required by law. The above report was generated using voice recognition software. It may contain grammatical, syntax or spelling errors. Electronically signed by: Jessee Llamas M.D. 01/22/2022 1:03 PM
[2022-01-22] MEDS ORDERED: POLYETHYLENE (MIRALAX) 17 GM PACK PO PRN (16:26)
[2022-01-22] MEDS ORDERED: diphenhydrAMINE 50 MG/ML VIAL IV PRN (16:26)
[2022-01-22] MEDS ORDERED: ONDANSETRON INJ 2 MG/ML 2 ML VIAL IV PRN (16:26)
[2022-01-22] MEDS ORDERED: HYDROmorphone INJ 0.5 MG/0.5 ML SYR IV PRN (16:26)
[2022-01-22] MEDS ORDERED: HYDROmorphone INJ 1 MG/ML SYRINGE IV PRN (16:26)
[2022-01-22] MEDS ORDERED: ALBUTEROL HFA 8 GM INHALER INH PRN (16:26)
[2022-01-22] MEDS ORDERED: ACETAMINOPHEN 325 MG TAB PO PRN (16:26)
--- NOTE | 2022-01-22 17:35 | Electrocardiogram Report ---
Test Reason : Blood Pressure : / mmHG Vent. Rate : 078 BPM Atrial Rate : 078 BPM P-R Int : 158 ms QRS Dur : 078 ms QT Int : 388 ms P-R-T Axes : 030 -08 -03 degrees QTc Int : 442 ms Normal sinus rhythm Minimal voltage criteria for LVH, may be normal variant Borderline ECG When compared with ECG of 19-APR-2021 15:32, No significant change was found Confirmed by Constantin Blanchard ([id number]) on 01/22/2022 5:35:01 PM Referred By: REFERRED SELF Confirmed By:Tung Blanchard
[2022-01-22] MEDS: INSULIN ASPART PER UNIT SC SCH ×2 (18:09→21:31)
[2022-01-22] MEDS: LANTUS PER UNIT CHARGE SQ SCH (21:31)
[2022-01-22] MEDS: SILDENAFIL CITRATE 20 MG TABLET PO SCH (21:35)
[2022-01-22] MEDS: MICONAZOLE NITRATE-7 (100 MG EA SUPP) BOX PV SCH (21:35)
[2022-01-22] MEDS: METOPROLOL SUCC 25MG EXT REL TAB PO SCH (21:39)
[2022-01-22] MEDS ORDERED: oxyCODONE HCL IR 5 MG TAB (IMMEDIATE RELEASE) PO STA (22:05)
[2022-01-23] MEDS ORDERED: oxyCODONE HCL IR 5 MG TAB (IMMEDIATE RELEASE) PO STA (04:23)
[2022-01-23 05:59] LABS: Basophils # (auto) 0.03 K/uL (0-0.2); Basophils % (auto) 0.3 %; Eosinophils # (auto) 0.14 K/uL (0-0.50); Eosinophils % (auto) 1.3 %; Hematocrit (blood only) 38.7 % (34.1-44.9); Hemoglobin 12.7 g/dl (12.0-16.0); Immature Granulocytes # (auto) 0.04 K/uL (0.00-0.02); Immature Granulocytes % (auto) 0.4 %; Lymphocytes # (auto) 2.61 K/uL (1.2-3.4); Mean Corpuscular Hemoglobin 29.5 pg (25.0-34.0); Mean Corpuscular Hgb Conc 32.8 g/dL (32.0-36.0); Mean Platelet Volume 10.4 fL (9.4-12.3); Monocytes # (auto) 0.62 K/uL (0.24-0.82); Monocytes % (auto) 5.9 %; Neutrophils # (auto) 7.02 K/uL (1.4-6.5); Neutrophils % (auto) 67.1 %; Platelet Count 322 K/uL (130-400); RDW Coefficient of Variation 13.6 % (11.5-14.5); RDW Standard Deviation 44.7 fL (36.4-46.3); White Blood Count 10.46 K/ul (4.8-10.8)
[2022-01-23 06:07] LABS: Prothrombin Time 10.5 Seconds (9.0-12.0)
[2022-01-23 06:30] LABS: Albumin Globulin Ratio 1.3 (0.9-2); Albumin Level 3.4 gm/dl (3.4-5.0); BUN Creatinine Ratio 12.5 (10-20); Bilirubin,Total 1.5 mg/dl (0.2-1.0); Calcium 8.2 mg/dl (8.5-10.1); Creatinine Clr Calc Pharmacy 89.8 ml/min; Est GFR (African American) 107.8 ml/min; Globulin 2.6 gm/dl (2.5-4.0); Potassium 3.8 mmol/L (3.5-5.1)
[2022-01-23] MEDS: SILDENAFIL CITRATE 20 MG TABLET PO SCH ×3 (07:13→20:48)
[2022-01-23] MEDS: METOPROLOL SUCC 25MG EXT REL TAB PO SCH ×3 (07:13→20:51)
[2022-01-23 08:10] LABS: Estimated Average Glucose 272 mg/dl; Hemoglobin A1C 11.1 % (4.5-5.6)
[2022-01-23] MEDS: LANTUS PER UNIT CHARGE SQ SCH ×2 (09:08→21:27)
[2022-01-23] MEDS: INSULIN ASPART PER UNIT SC SCH ×4 (09:08→21:27)
[2022-01-23] MEDS: oxyCODONE HCL IR 5 MG TAB (IMMEDIATE RELEASE) PO PRN ×2 (09:10→14:13)
[2022-01-23] MEDS: DOCUSATE SODIUM 100 MG CAP PO SCH ×2 (09:11→20:48)
[2022-01-23] MEDS: ACETAMINOPHEN 500 MG TAB PO SCH ×2 (09:11→16:42)
[2022-01-23] MEDS: ENOXAPARIN INJ 40 MG/0.4 ML SYR SQ SCH (10:59)
[2022-01-23] MEDS: IBUPROFEN 200 MG TAB PO SCH ×3 (12:47→20:48)
[2022-01-23] MEDS ORDERED: ALBUT/IPRATROP 3MG/0.5MG NEB 3 ML VIAL NEB PRN (16:14)
[2022-01-23] MEDS ORDERED: bisacodyL 10 MG SUPP PR PRN (16:15)
--- NOTE | 2022-01-23 16:15 | Hospitalist Progress Note ---
Date of Service January 23, 2022 Assessment & Plan (1) Tibial plateau fracture, right: Plan: CT scan: 1. Acute minimally comminuted and slightly displaced fracture involves the medial cortex of the medial femoral condyle. 2. 3 mm cortical depression of the medial plateau is suggestive of an additional acute fracture. Conservative management per orthopedics; they are organizing hinged knee brace Lovenox for DVT prevention Nonweightbearing right lower extremity Pain controlOxy as needed plus high-dose scheduled acetaminophen plus ibuprofen Likely need rehab/SNF (2) Chronic respiratory failure with hypoxia: Plan: Post COVID, history of ARDSappears at baseline (3) Obstructive sleep apnea: Plan: CPAP qHS. Patient poorly tolerant to masks, has been able to tolerate nasal pillow if available (4) Pulmonary hypertension: Plan: Continue home therapy; pulmonary follow-up (5) HTN (hypertension): Plan: Pressures acceptableno change (6) DMII (diabetes mellitus, type 2): Plan: Sugars reasonableno change; however poor long-term [id number] 11.1; needs to work with PCP/endocrinology as outpatient (7) Asthma: Plan: No evidence of exacerbation; added DuoNeb as needed Plan Bilirubin notedno clinical correlate, observe Admission and Anticipated Discharge Date Admission Date: January 22, 2022 Subjective Follow-up of mechanical event and right lower extremity fractureovernight had vomiting after Dilaudid and fentanyl; no abdominal pain; did okay with oxycodone Physical Exam Physical Exam: Constitutional and general: No acute distress, looks biologic age Head and face: No puffiness, atraumatic Eyes: No scleral icterus, extraocular movements normal Neck: Supple, no JVD Skin/dermatologic/integument: No rash, no purpura Hematologic and lymphatic: pallor none, no petechia Gastrointestinal/abdomen: Nondistended, soft, nonacute Neurologic: Cranial nerves intact, nonfocal Psychiatry: Awake, alert, pleasant, communicative Cardiovascular: Heart rhythm regular, no rub, no murmur, no gallop Respiratory: Chest movements equal, no use of accessory muscles, no adventitious sounds Extremities: No edema, no cyanosis Results & Data Results & Data ([facility]) Vital Signs (Past 12 Hours) Vital Signs Temp Pulse Resp BP Pulse Ox O2 Del Method O2 Flow Rate 01/23/22 14:00 36.7 C 84 16 115/79 91 Nasal Cannula 1 01/23/22 13:59 84 L Room Air 01/23/22 11:03 92 Room Air 01/23/22 07:08 37.3 C 84 20 135/80 95 Nasal Cannula 1 Laboratory Results Laboratory Results - last 24 hr 01/22/22 01/22/22 01/23/22 16:58 20:31 05:35 WBC RBC Hgb Hct MCV MCH MCHC RDW Std Deviation RDW Coeff of Ralf Plt Count MPV Immature Gran % (Auto) Neut % (Auto) Lymph % (Auto) Starr % (Auto) Eos % (Auto) Baso % (Auto) Neut # (Auto) Lymph # (Auto) Starr # (Auto) Eos # (Auto) Baso # (Auto) Immature Gran # (Auto) PT INR Sodium Potassium Chloride Carbon Dioxide Anion Gap BUN Creatinine Est Cr Clr Drug Dosing Est GFR ( Amer) Est GFR (Non-Af Amer) BUN/Creatinine Ratio Glucose POC Glucose 160 H 214 H Estimat Average Glucose 272 Hemoglobin A1c 11.1 H Calcium Total Bilirubin AST ALT Alkaline Phosphatase Total Protein Albumin Globulin Albumin/Globulin Ratio 01/23/22 01/23/22 01/23/22 05:35 05:35 05:35 WBC 10.46 RBC 4.30 Hgb 12.7 Hct 38.7 MCV 90.0 MCH 29.5 MCHC 32.8 RDW Std Deviation 44.7 RDW Coeff of Ralf 13.6 Plt Count 322 MPV 10.4 Immature Gran % (Auto) 0.4 Neut % (Auto) 67.1 Lymph % (Auto) 25.0 Starr % (Auto) 5.9 Eos % (Auto) 1.3 Baso % (Auto) 0.3 Neut # (Auto) 7.02 H Lymph # (Auto) 2.61 Starr # (Auto) 0.62 Eos # (Auto) 0.14 Baso # (Auto) 0.03 Immature Gran # (Auto) 0.04 H PT 10.5 INR 1.0 Sodium 136 Potassium 3.8 Chloride 100 Carbon Dioxide 28 Anion Gap 8 BUN 8 Creatinine 0.64 Est Cr Clr Drug Dosing 89.8 Est GFR ( Amer) 107.8 Est GFR (Non-Af Amer) 93.0 BUN/Creatinine Ratio 12.5 Glucose 176 H POC Glucose Estimat Average Glucose Hemoglobin A1c Calcium 8.2 L Total Bilirubin 1.5 H AST 12 L ALT 8 Alkaline Phosphatase 96 Total Protein 6.0 Albumin 3.4 Globulin 2.6 Albumin/Globulin Ratio 1.3 01/23/22 01/23/22 08:11 12:08 WBC RBC Hgb Hct MCV MCH MCHC RDW Std Deviation RDW Coeff of Ralf Plt Count MPV Immature Gran % (Auto) Neut % (Auto) Lymph % (Auto) Starr % (Auto) Eos % (Auto) Baso % (Auto) Neut # (Auto) Lymph # (Auto) Starr # (Auto) Eos # (Auto) Baso # (Auto) Immature Gran # (Auto) PT INR Sodium Potassium Chloride Carbon Dioxide Anion Gap BUN Creatinine Est Cr Clr Drug Dosing Est GFR ( Amer) Est GFR (Non-Af Amer) BUN/Creatinine Ratio Glucose POC Glucose 169 H 211 H Estimat Average Glucose Hemoglobin A1c Calcium Total Bilirubin AST ALT Alkaline Phosphatase Total Protein Albumin Globulin Albumin/Globulin Ratio PG Care Time/CCT Total # of Minutes Spent Total Time Spent with Patient: Total time spent is greater than 50% in coordination of care (as documented) at patient's floor/unit and/or counseling patient: Coding Level of Care Code 19642 Subseq Hosp Care Lvl 2 Diagnoses Tibial plateau fracture, right S82.141A Chronic respiratory failure with hypoxia J96.11 Obstructive sleep apnea G47.33 Pulmonary hypertension I27.20 HTN (hypertension) I10 DMII (diabetes mellitus, type 2) E11.9 Asthma J45.909
[2022-01-23] MEDS: NYSTATIN POWDER 15GM BTL EXT PRN (16:47)
[2022-01-23] MEDS: MICONAZOLE NITRATE-7 (100 MG EA SUPP) BOX PV SCH (20:49)
[2022-01-24] MEDS: ACETAMINOPHEN 500 MG TAB PO SCH ×3 (00:55→17:16)
--- NOTE | 2022-01-24 01:15 | Communication Note ---
Date of Service: January 24, 2022 notified about has not voided in 10 hours
[2022-01-24] MEDS: oxyCODONE HCL IR 5 MG TAB (IMMEDIATE RELEASE) PO PRN ×2 (05:49→14:47)
[2022-01-24 05:56] LABS: Basophils # (auto) 0.02 K/uL (0-0.2); Basophils % (auto) 0.2 %; Eosinophils # (auto) 0.28 K/uL (0-0.50); Hematocrit (blood only) 38.7 % (34.1-44.9); Hemoglobin 12.9 g/dl (12.0-16.0); Immature Granulocytes # (auto) 0.03 K/uL (0.00-0.02); Immature Granulocytes % (auto) 0.3 %; Lymphocytes # (auto) 2.81 K/uL (1.2-3.4); Lymphocytes % (auto) 29.7 %; Mean Corpuscular Hemoglobin 29.9 pg (25.0-34.0); Mean Corpuscular Hgb Conc 33.3 g/dL (32.0-36.0); Mean Corpuscular Volume 89.6 fL (80.0-100.0); Mean Platelet Volume 10.1 fL (9.4-12.3); Monocytes # (auto) 0.58 K/uL (0.24-0.82); Monocytes % (auto) 6.1 %; Neutrophils # (auto) 5.75 K/uL (1.4-6.5); Neutrophils % (auto) 60.7 %; Platelet Count 301 K/uL (130-400); RDW Coefficient of Variation 13.7 % (11.5-14.5); RDW Standard Deviation 45.1 fL (36.4-46.3); Red Blood Count 4.32 M/uL (3.93-5.22); White Blood Count 9.47 K/ul (4.8-10.8)
[2022-01-24 06:24] LABS: Albumin Globulin Ratio 1.3 (0.9-2); Albumin Level 3.3 gm/dl (3.4-5.0); Bilirubin,Total 1.1 mg/dl (0.2-1.0); Calcium 8.1 mg/dl (8.5-10.1); Creatinine Clr Calc Pharmacy 55.2 ml/min; Est GFR (African American) 64.8 ml/min; Est GFR (Non-African American) 55.9 ml/min; Globulin 2.6 gm/dl (2.5-4.0); Magnesium 1.9 mg/dl (1.7-2.4); Phosphorus 5.3 mg/dl (2.5-4.9); Potassium 4.1 mmol/L (3.5-5.1); Total Protein 5.9 gm/dl (6.0-8.3)
[2022-01-24] MEDS: IBUPROFEN 200 MG TAB PO SCH ×4 (08:19→20:31)
[2022-01-24] MEDS: METOPROLOL SUCC 25MG EXT REL TAB PO SCH ×3 (08:20→20:32)
[2022-01-24] MEDS: ENOXAPARIN INJ 40 MG/0.4 ML SYR SQ SCH (08:21)
[2022-01-24] MEDS: DOCUSATE SODIUM 100 MG CAP PO SCH ×2 (08:21→20:31)
[2022-01-24] MEDS: POLYETHYLENE (MIRALAX) 17 GM PACK PO SCH (08:23)
[2022-01-24] MEDS: SILDENAFIL CITRATE 20 MG TABLET PO SCH ×3 (08:23→20:31)
[2022-01-24] MEDS: LANTUS PER UNIT CHARGE SQ SCH ×2 (08:53→21:15)
[2022-01-24] MEDS: INSULIN ASPART PER UNIT SC SCH ×5 (08:53→21:16)
[2022-01-24] MEDS: CETIRIZINE HCL 10 MG TABLET PO SCH (15:48)
[2022-01-24] MEDS ORDERED: PHARMACY GLYCEMIC MGMT CONSULT PRN (16:48)
--- NOTE | 2022-01-24 16:50 | Hospitalist Progress Note ---
Date of Service January 24, 2022 Assessment & Plan (1) Tibial plateau fracture, right: Plan: CT scan: 1. Acute minimally comminuted and slightly displaced fracture involves the medial cortex of the medial femoral condyle. 2. 3 mm cortical depression of the medial plateau is suggestive of an additional acute fracture. Conservative management per orthopedics; they are organizing hinged knee brace Lovenox for DVT prevention Nonweightbearing right lower extremity Pain controlOxy as needed plus high-dose scheduled acetaminophen plus ibuprofen Likely need rehab/SNF (2) Chronic respiratory failure with hypoxia: Plan: Post COVID, history of ARDSappears at baseline (3) Obstructive sleep apnea: Plan: CPAP qHS. Patient poorly tolerant to masks, has been able to tolerate nasal pillow if available (4) Pulmonary hypertension: Plan: Continue home therapy; pulmonary follow-up (5) HTN (hypertension): Plan: Pressures acceptableno change (6) DMII (diabetes mellitus, type 2): Plan: Sugars trending high; pharmacy glycemic consult; poor long-term [id number] 11.1; needs to work with PCP/endocrinology as outpatient (7) Asthma: Plan: No evidence of exacerbation; DuoNeb as needed Plan Bilirubin notedno clinical correlate, observe Coryza symptomsantihistaminic and observe; COVID not ordered, do not suspect at present; can consider particularly if fever then would certainly order Admission and Anticipated Discharge Date Admission Date: January 22, 2022 Subjective Follow-up of mechanical event and right lower extremity fracturedoing overall better but some coryzal symptoms Physical Exam Physical Exam: Constitutional and general: No acute distress, looks biologic age Head and face: No puffiness, atraumatic Eyes: No scleral icterus, extraocular movements normal Neck: Supple, no JVD Skin/dermatologic/integument: No rash, no purpura Hematologic and lymphatic: pallor none, no petechia Gastrointestinal/abdomen: Nondistended, soft, nonacute Neurologic: Cranial nerves intact, nonfocal Psychiatry: Awake, alert, pleasant, communicative Cardiovascular: Heart rhythm regular, no rub, no murmur, no gallop Respiratory: Chest movements equal, no use of accessory muscles, no adventitious sounds Extremities: No edema, no cyanosis Results & Data Results & Data ([facility]) Vital Signs (Past 12 Hours) Vital Signs Temp Pulse Resp BP Pulse Ox O2 Del Method O2 Flow Rate 01/24/22 14:39 36.5 C 83 20 112/75 95 Nasal Cannula 2 01/24/22 08:00 Nasal Cannula 1 01/24/22 07:15 36.6 C 72 18 148/90 H 97 Nasal Cannula 2 Laboratory Results Laboratory Results - last 24 hr 01/23/22 01/23/22 01/24/22 17:10 21:25 05:37 WBC 9.47 RBC 4.32 Hgb 12.9 Hct 38.7 MCV 89.6 MCH 29.9 MCHC 33.3 RDW Std Deviation 45.1 RDW Coeff of Ralf 13.7 Plt Count 301 MPV 10.1 Immature Gran % (Auto) 0.3 Neut % (Auto) 60.7 Lymph % (Auto) 29.7 Ponce % (Auto) 6.1 Eos % (Auto) 3.0 Baso % (Auto) 0.2 Neut # (Auto) 5.75 Lymph # (Auto) 2.81 Ponce # (Auto) 0.58 Eos # (Auto) 0.28 Baso # (Auto) 0.02 Immature Gran # (Auto) 0.03 H Sodium Potassium Chloride Carbon Dioxide Anion Gap BUN Creatinine Est Cr Clr Drug Dosing Est GFR ( Amer) Est GFR (Non-Af Amer) POC Glucose 225 H 202 H Fasting Glucose Calcium Phosphorus Magnesium Total Bilirubin AST ALT Alkaline Phosphatase Total Protein Albumin Globulin Albumin/Globulin Ratio 01/24/22 01/24/22 01/24/22 05:37 08:13 12:05 WBC RBC Hgb Hct MCV MCH MCHC RDW Std Deviation RDW Coeff of Ralf Plt Count MPV Immature Gran % (Auto) Neut % (Auto) Lymph % (Auto) Ponce % (Auto) Eos % (Auto) Baso % (Auto) Neut # (Auto) Lymph # (Auto) Ponce # (Auto) Eos # (Auto) Baso # (Auto) Immature Gran # (Auto) Sodium 135 L Potassium 4.1 Chloride 101 Carbon Dioxide 26 Anion Gap 8 BUN 24 H Creatinine 1.04 D Est Cr Clr Drug Dosing 55.2 Est GFR ( Amer) 64.8 Est GFR (Non-Af Amer) 55.9 POC Glucose 167 H 206 H Fasting Glucose 181 H Calcium 8.1 L Phosphorus 5.3 H Magnesium 1.9 Total Bilirubin 1.1 H AST 11 L ALT 7 Alkaline Phosphatase 91 Total Protein 5.9 L Albumin 3.3 L Globulin 2.6 Albumin/Globulin Ratio 1.3 PG Care Time/CCT Total # of Minutes Spent Total Time Spent with Patient: Total time spent is greater than 50% in coordination of care (as documented) at patient's floor/unit and/or counseling patient: Coding Level of Care Code 31981 Subseq Hosp Care Lvl 2 Diagnoses Tibial plateau fracture, right S82.141A Chronic respiratory failure with hypoxia J96.11 Obstructive sleep apnea G47.33 Pulmonary hypertension I27.20 HTN (hypertension) I10 DMII (diabetes mellitus, type 2) E11.9 Asthma J45.909
[2022-01-24] MEDS: MICONAZOLE NITRATE-7 (100 MG EA SUPP) BOX PV SCH (20:32)
[2022-01-24] MEDS ORDERED: INSULIN ASPART PER UNIT SC SCH (21:00)
[2022-01-25] MEDS: ACETAMINOPHEN 500 MG TAB PO SCH ×3 (01:21→17:05)
[2022-01-25] MEDS: oxyCODONE HCL IR 5 MG TAB (IMMEDIATE RELEASE) PO PRN ×2 (01:23→08:14)
[2022-01-25 06:09] LABS: Basophils # (auto) 0.02 K/uL (0-0.2); Basophils % (auto) 0.3 %; Eosinophils # (auto) 0.31 K/uL (0-0.50); Eosinophils % (auto) 3.9 %; Hemoglobin 12.5 g/dl (12.0-16.0); Immature Granulocytes # (auto) 0.03 K/uL (0.00-0.02); Immature Granulocytes % (auto) 0.4 %; Lymphocytes # (auto) 3.01 K/uL (1.2-3.4); Lymphocytes % (auto) 38.1 %; Mean Corpuscular Hemoglobin 29.5 pg (25.0-34.0); Mean Corpuscular Hgb Conc 32.1 g/dL (32.0-36.0); Mean Platelet Volume 10.3 fL (9.4-12.3); Monocytes # (auto) 0.56 K/uL (0.24-0.82); Monocytes % (auto) 7.1 %; Neutrophils # (auto) 3.96 K/uL (1.4-6.5); Neutrophils % (auto) 50.2 %; Platelet Count 331 K/uL (130-400); RDW Coefficient of Variation 13.7 % (11.5-14.5); RDW Standard Deviation 46.8 fL (36.4-46.3); Red Blood Count 4.24 M/uL (3.93-5.22); White Blood Count 7.89 K/ul (4.8-10.8)
[2022-01-25 06:38] LABS: Albumin Globulin Ratio 1.1 (0.9-2); Albumin Level 3.2 gm/dl (3.4-5.0); Bilirubin,Total 0.6 mg/dl (0.2-1.0); Calcium 8.6 mg/dl (8.5-10.1); Creatinine Clr Calc Pharmacy 65.3 ml/min; Est GFR (African American) 79.4 ml/min; Est GFR (Non-African American) 68.5 ml/min; Globulin 2.8 gm/dl (2.5-4.0); Magnesium 2.1 mg/dl (1.7-2.4); Phosphorus 5.5 mg/dl (2.5-4.9); Potassium 4.2 mmol/L (3.5-5.1)
[2022-01-25] MEDS: IBUPROFEN 200 MG TAB PO SCH ×4 (08:15→20:50)
[2022-01-25] MEDS: METOPROLOL SUCC 25MG EXT REL TAB PO SCH ×3 (08:15→20:52)
--- NOTE | 2022-01-25 08:15 | Hospitalist Progress Note ---
Date of Service January 25, 2022 Assessment & Plan (1) Tibial plateau fracture, right: Plan: Mechanical fall after cleaning up dog urine at home and fell on her right knee Imaging with CT scan: * 1. Acute minimally comminuted and slightly displaced fracture involves the medial cortex of the medial femoral condyle. * 2. 3 mm cortical depression of the medial plateau is suggestive of an additional acute fracture. Orthopedics consulted Conservative management with hinged brace (I placed consult for orthotics 01/25 as she had not received yet), NWB with crutches/walker/WC assistance Pain control/antiemetics prn Lovenox SQ for DVT prevention Will also check Vit D level in AM as well as B12 for possible underlying neuropathy PT/OT consulted -- CM to follow as likely to need rehab. Changed to full admit (2) Chronic respiratory failure with hypoxia: Plan: Post COVID, history of ARDSappears at baseline however still on 2L with drop to 70s w/ ambulation States uses 1L at night, working on getting CPAP outpatient Consider 2step prior to discharge, but also note on lasix 20mg PO daily but no overt HF but some diminished in the bases/trace LE edema and resumed such and will monitor Does have murmur on exam, states is known and follows with cards and to have repeat ECHO after CPAP outpatient. Most recent ECHO w/o valvular issue. Denies CP/increased SOB and stated 2L was placed due to her having low sats with increased pain with any ambulation Titrate to maintain sats, preeti with resumption of lasix not ordered on admission Monitor (3) Obstructive sleep apnea: Plan: CPAP qHS. Patient poorly tolerant to masks, has been able to tolerate nasal pillow if available (4) Pulmonary hypertension: Plan: Continue home therapy; pulmonary follow-up Also on lasix 20mg PO daily, hadn't gotten since admit. Resumed and to monitor (5) HTN (hypertension): Plan: Remains on metoprolol succinate 12.5mg TID, furosemide 20mg daily BP stable, some elevations 2nd to pain (6) DMII (diabetes mellitus, type 2): Plan: Sugars trending high; pharmacy glycemic consult; poor long-term [id number] 11.1; needs to work with PCP/endocrinology as outpatient (7) Asthma: Plan: No evidence of exacerbation; DuoNeb as needed Plan Bilirubin notedno clinical correlate, observe Coryza symptomsantihistaminic and observe; COVID not ordered, do not suspect at present; can consider particularly if fever then would certainly order Admission and Anticipated Discharge Date Admission Date: January 22, 2022 Supervising Physician Co-Signing Physician Notes Attending Attestation - Chart reviewed in detail, care plan d/w Janett Johnson. I agree w/ the robin components of her documentation. Jefferson Galindo MD Subjective Patient eval this morning. Doing well except pain little worse today but avoiding stronger opiates. has not yet recevied brace for her right knee, will consult orthotics. just got done with his own knee issues/arthroscopy and back to work right before she slipped/fell cleaning up dog urine at home resulting in fracture. Does have some cramping and admits to history of low magnesium. Got miralax and passing gas but no BM. Does have issues when on pain meds, will add senna/docusate. On 2L but typically on1L at night and prn w/ ambulation but following with pulm and stated doing well, trying to get CPAP arranged outpatient. known murmur, follows with cards and to have ECHO after she gets her CPAP. Also discussed can help with BP management no sob/cp, fever, chills stated wondering about insurance/rehab as takes couple days, will alert CM and have them discuss. may need 2 step prior to d/c as sat to 76 w/ therapy in days past but patient states maintains. can be 88 at home without knowing although she states she knows they don't want her that low. no n/v at present, no dysuria or other complaints at this time. questions/concerns addressed. Review of Systems Review of Systems: All systems reviewed & are unremarkable except as noted in HPI & below Physical Exam Physical Exam: General: WD/WN obese female sitting up in bed, NAD HEENT: head normocephalic, atraumatic, mmm, trachea midline without deviation Resp: diminished in the bases with associated crackles, no wheezing on 2L NC CV: regular rate/rhythm, +SYSTOLIC MURMUR 3-4/6, no rub/gallop, trace pitting LE edema, calves non-tender, no increased calf size compared to another GI:+BS, slightly distended, nontender : no frausto MSK/Neuro: punctate lesion superior aspect of knee, full ROM R ankle/foot, however only about 5-10 degrees at the right knee with come increased pain reported. 3/5 strength compared to the left. DTR intact, pulses palpable, cap refill wnl Psych: AOx3, pleasant and cooperative Skin: warm, dry Results & Data Results & Data ([facility]) Vital Signs (Past 12 Hours) Vital Signs Temp Pulse Resp BP Pulse Ox O2 Del Method O2 Flow Rate 01/25/22 07:16 36.7 C 63 17 127/80 98 Nasal Cannula 2 01/24/22 22:25 36.5 C 65 18 118/77 99 Laboratory Results 01/25/22 01/25/22 01/25/22 Range/Units 08:08 05:33 05:33 WBC 7.89 (4.8-10.8) K/ul RBC 4.24 (3.93-5.22) M/uL Hgb 12.5 (12.0-16.0) g/dl Hct 39.0 (34.1-44.9) % MCV 92.0 (80.0-100.0) fL MCH 29.5 (25.0-34.0) pg MCHC 32.1 (32.0-36.0) g/dL RDW Std Deviation 46.8 H (36.4-46.3) fL RDW Coeff of Ralf 13.7 (11.5-14.5) % Plt Count 331 (130-400) K/uL MPV 10.3 (9.4-12.3) fL Immature Gran % (Auto) 0.4 % Neut % (Auto) 50.2 % Lymph % (Auto) 38.1 % [place] % (Auto) 7.1 % Eos % (Auto) 3.9 % Baso % (Auto) 0.3 % Neut # (Auto) 3.96 (1.4-6.5) K/uL Lymph # (Auto) 3.01 (1.2-3.4) K/uL [place] # (Auto) 0.56 (0.24-0.82) K/uL Eos # (Auto) 0.31 (0-0.50) K/uL Baso # (Auto) 0.02 (0-0.2) K/uL Immature Gran # (Auto) 0.03 H (0.00-0.02) K/uL Sodium 138 (136-145) mmol/L Potassium 4.2 (3.5-5.1) mmol/L Chloride 102 (98-107) mmol/L Carbon Dioxide 30 (21-32) mmol/L Anion Gap 6 (3-11) BUN 23 (6-23) mg/dl Creatinine 0.88 (0.6-1.2) mg/dl Est Cr Clr Drug Dosing 65.3 ml/min Est GFR ( Amer) 79.4 ml/min Est GFR (Non-Af Amer) 68.5 ml/min POC Glucose 118 H (70-99) mg/dl Fasting Glucose 126 H (70-99) mg/dl Calcium 8.6 (8.5-10.1) mg/dl Phosphorus 5.5 H (2.5-4.9) mg/dl Magnesium 2.1 (1.7-2.4) mg/dl Total Bilirubin 0.6 D (0.2-1.0) mg/dl AST 13 (13-39) U/L ALT 7 (7-52) U/L Alkaline Phosphatase 86 (34-104) U/L Total Protein 6.0 (6.0-8.3) gm/dl Albumin 3.2 L (3.4-5.0) gm/dl Globulin 2.8 (2.5-4.0) gm/dl Albumin/Globulin Ratio 1.1 (0.9-2) 01/24/22 01/24/22 01/24/22 Range/Units 20:56 17:17 12:05 WBC (4.8-10.8) K/ul RBC (3.93-5.22) M/uL Hgb (12.0-16.0) g/dl Hct (34.1-44.9) % MCV (80.0-100.0) fL MCH (25.0-34.0) pg MCHC (32.0-36.0) g/dL RDW Std Deviation (36.4-46.3) fL RDW Coeff of Ralf (11.5-14.5) % Plt Count (130-400) K/uL MPV (9.4-12.3) fL Immature Gran % (Auto) % Neut % (Auto) % Lymph % (Auto) % [place] % (Auto) % Eos % (Auto) % Baso % (Auto) % Neut # (Auto) (1.4-6.5) K/uL Lymph # (Auto) (1.2-3.4) K/uL [place] # (Auto) (0.24-0.82) K/uL Eos # (Auto) (0-0.50) K/uL Baso # (Auto) (0-0.2) K/uL Immature Gran # (Auto) (0.00-0.02) K/uL Sodium (136-145) mmol/L Potassium (3.5-5.1) mmol/L Chloride (98-107) mmol/L Carbon Dioxide (21-32) mmol/L Anion Gap (3-11) BUN (6-23) mg/dl Creatinine (0.6-1.2) mg/dl Est Cr Clr Drug Dosing ml/min Est GFR ( Amer) ml/min Est GFR (Non-Af Amer) ml/min POC Glucose 199 H 137 H 206 H (70-99) mg/dl Fasting Glucose (70-99) mg/dl Calcium (8.5-10.1) mg/dl Phosphorus (2.5-4.9) mg/dl Magnesium (1.7-2.4) mg/dl Total Bilirubin (0.2-1.0) mg/dl AST (13-39) U/L ALT (7-52) U/L Alkaline Phosphatase (34-104) U/L Total Protein (6.0-8.3) gm/dl Albumin (3.4-5.0) gm/dl Globulin (2.5-4.0) gm/dl Albumin/Globulin Ratio (0.9-2) 01/24/22 Range/Units 08:13 WBC (4.8-10.8) K/ul RBC (3.93-5.22) M/uL Hgb (12.0-16.0) g/dl Hct (34.1-44.9) % MCV (80.0-100.0) fL MCH (25.0-34.0) pg MCHC (32.0-36.0) g/dL RDW Std Deviation (36.4-46.3) fL RDW Coeff of Ralf (11.5-14.5) % Plt Count (130-400) K/uL MPV (9.4-12.3) fL Immature Gran % (Auto) % Neut % (Auto) % Lymph % (Auto) % [place] % (Auto) % Eos % (Auto) % Baso % (Auto) % Neut # (Auto) (1.4-6.5) K/uL Lymph # (Auto) (1.2-3.4) K/uL [place] # (Auto) (0.24-0.82) K/uL Eos # (Auto) (0-0.50) K/uL Baso # (Auto) (0-0.2) K/uL Immature Gran # (Auto) (0.00-0.02) K/uL Sodium (136-145) mmol/L Potassium (3.5-5.1) mmol/L Chloride (98-107) mmol/L Carbon Dioxide (21-32) mmol/L Anion Gap (3-11) BUN (6-23) mg/dl Creatinine (0.6-1.2) mg/dl Est Cr Clr Drug Dosing ml/min Est GFR ( Amer) ml/min Est GFR (Non-Af Amer) ml/min POC Glucose 167 H (70-99) mg/dl Fasting Glucose (70-99) mg/dl Calcium (8.5-10.1) mg/dl Phosphorus (2.5-4.9) mg/dl Magnesium (1.7-2.4) mg/dl Total Bilirubin (0.2-1.0) mg/dl AST (13-39) U/L ALT (7-52) U/L Alkaline Phosphatase (34-104) U/L Total Protein (6.0-8.3) gm/dl Albumin (3.4-5.0) gm/dl Globulin (2.5-4.0) gm/dl Albumin/Globulin Ratio (0.9-2) PG Care Time/CCT Total # of Minutes Spent Total Time Spent with Patient: Total time spent is greater than 50% in coordination of care (as documented) at patient's floor/unit and/or counseling patient: Coding Level of Care Code 05742 Subseq Hosp Care Lvl 3 Diagnoses Tibial plateau fracture, right S82.141A Chronic respiratory failure with hypoxia J96.11 Obstructive sleep apnea G47.33 Pulmonary hypertension I27.20 HTN (hypertension) I10 DMII (diabetes mellitus, type 2) E11.9 Asthma J45.909
[2022-01-25] MEDS: CETIRIZINE HCL 10 MG TABLET PO SCH (08:16)
[2022-01-25] MEDS: SILDENAFIL CITRATE 20 MG TABLET PO SCH ×3 (08:16→20:51)
[2022-01-25] MEDS: DOCUSATE SODIUM 100 MG CAP PO SCH ×2 (08:16→20:50)
[2022-01-25] MEDS: POLYETHYLENE (MIRALAX) 17 GM PACK PO SCH ×2 (08:17→08:18)
[2022-01-25] MEDS: ENOXAPARIN INJ 40 MG/0.4 ML SYR SQ SCH (08:17)
[2022-01-25] MEDS: INSULIN ASPART PER UNIT SC SCH ×4 (08:41→20:55)
[2022-01-25] MEDS: LANTUS PER UNIT CHARGE SQ SCH (08:42)
--- NOTE | 2022-01-25 09:01 | Pharmacy Report ---
Pharmacy Glycemic Short Note 2 - Date of Service January 25, 2022 - Glycemic Short BSG Results (Last 24 hours): 01/24/22 01/24/22 01/24/22 12:05 17:17 20:56 POC Glucose 206 H 137 H 199 H Fasting Glucose 01/25/22 01/25/22 05:33 08:08 POC Glucose 118 H Fasting Glucose 126 H OUTPATIENT ANTIDIABETIC REGIMEN: * Novolin 70/30 insulin 30 units SC qAM, 15 units SC qPM HbA1c: 11.1% (01/23/22) ASSESSMENT: * NH is a 66 year old female admitted on 01/22/22 with femoral condolyte fracture s/p fall * Plan at this time is to treat conservatively * Patient with poorly controlled T2DM based on HbA1c * Pharmacy consulted for glycemic management on 01/24/22 * Previous orders of Lantus 8 units SC BID + Novolog CF of 50 and carb ratio of 17 * BSGs elevated with this regimen * Fasting BSG of 118 mg/dL this morning, will plan to continue current basal dose (allow for slight increase at HS if needed) * Elevated BSGs throughout day will likely improve with tightened Novolog parameters PLAN FOR INPATIENT GLYCEMIC CONTROL: * Basal insulin * Lantus 8-10 units SQ BID (see EHR for details) * Bolus insulin * NovoLog per scale ACHS or Q6hrs while NPO * Goal Range: Low 110 mg/dL - High 140 mg/dL * Correction Factor: 35 mg/dL/unit * Nutritional / Prandial insulin per carb ratio of 1 unit per 12 grams CHO consumed
[2022-01-25] MEDS ORDERED: MAGNESIUM SULFATE / D5W 1 GM/100 ML BAG IV ONE (09:13)
[2022-01-25] MEDS: DOCUSATE SODIUM/SENNA 50/8.6MG TAB PO SCH (09:38)
[2022-01-25] MEDS: FUROSEMIDE 20 MG TAB PO SCH (10:34)
--- NOTE | 2022-01-25 16:31 | Orthopedic Progress Note ---
Date of Service January 25, 2022 Assessment & Plan (1) Tibial plateau fracture, right: Plan: Plan is to treat conservatively with knee hinge brace, NWB with crutches/walker/wheel chair to assist in ambulation. May remove brace for hygiene purposes and for PT. Frequently ice, at least 20 minutes 5 times a day and elevate right leg above heart Pain control per primary PT/OT - she is able to do active/passive range of motion of knee as tolerated Recommend DVT prophylaxis with Aspirin, MIRI stockings Follow up with Dr Brunner in 2 weeks at [facility] Admission and Anticipated Discharge Date Admission Date: January 25, 2022 Subjective This 66 yo F is seen today for f/u of Right Tibial plateau fracture and placement of hinged knee brace. Post op knee brace was placed by Angel Earl a few hours ago (per patient), however ROM was set to 0/0. Otherwise patient states that she is doing fairly well. Review of Systems Review of Systems: All systems reviewed & are unremarkable except as noted in HPI & below Physical Exam Physical Exam: Lower Extremity: Hinged knee brace placed. Settings readjusted to 0 degrees of extension and 90 of flexion. Skin intact. 1 + effusion. Appropriate dexterity of digits, foot and ankle. Able to SLR. Quad strength 3/5. Able to detect light sensation in foot. Periph pulses palpable. TTP over entire knee most exquisite at site of tibial plateau fx and medial femoral condyle. NV intact. Results & Data ([facility]) Vital Signs (Past 12 Hours) Vital Signs Temp Pulse Resp BP Pulse Ox O2 Del Method O2 Flow Rate 01/25/22 15:25 37 C 74 20 137/74 92 Nasal Cannula 1 01/25/22 07:16 36.7 C 63 17 127/80 98 Nasal Cannula 2 Diagnostic Findings Laboratory Results WBC 7.89 K/ul (4.8-10.8) 01/25/22 05:33 RBC 4.24 M/uL (3.93-5.22) 01/25/22 05:33 Hgb 12.5 g/dl (12.0-16.0) 01/25/22 05:33 Hct 39.0 % (34.1-44.9) 01/25/22 05:33 MCV 92.0 fL (80.0-100.0) 01/25/22 05:33 MCH 29.5 pg (25.0-34.0) 01/25/22 05:33 MCHC 32.1 g/dL (32.0-36.0) 01/25/22 05:33 RDW Std Deviation 46.8 fL (36.4-46.3) H 01/25/22 05:33 RDW Coeff of Ralf 13.7 % (11.5-14.5) 01/25/22 05:33 Plt Count 331 K/uL (130-400) 01/25/22 05:33 MPV 10.3 fL (9.4-12.3) 01/25/22 05:33 Immature Gran % (Auto) 0.4 % 01/25/22 05:33 Neut % (Auto) 50.2 % 01/25/22 05:33 Lymph % (Auto) 38.1 % 01/25/22 05:33 [place] % (Auto) 7.1 % 01/25/22 05:33 Eos % (Auto) 3.9 % 01/25/22 05:33 Baso % (Auto) 0.3 % 01/25/22 05:33 Neut # (Auto) 3.96 K/uL (1.4-6.5) 01/25/22 05:33 Lymph # (Auto) 3.01 K/uL (1.2-3.4) 01/25/22 05:33 [place] # (Auto) 0.56 K/uL (0.24-0.82) 01/25/22 05:33 Eos # (Auto) 0.31 K/uL (0-0.50) 01/25/22 05:33 Baso # (Auto) 0.02 K/uL (0-0.2) 01/25/22 05:33 Immature Gran # (Auto) 0.03 K/uL (0.00-0.02) H 01/25/22 05:33 PT 10.5 Seconds (9.0-12.0) 01/23/22 05:35 INR 1.0 (0.9-1.1) 01/23/22 05:35 Sodium 138 mmol/L (136-145) 01/25/22 05:33 Potassium 4.2 mmol/L (3.5-5.1) 01/25/22 05:33 Chloride 102 mmol/L (98-107) 01/25/22 05:33 Carbon Dioxide 30 mmol/L (21-32) 01/25/22 05:33 Anion Gap 6 (3-11) 01/25/22 05:33 BUN 23 mg/dl (6-23) 01/25/22 05:33 Creatinine 0.88 mg/dl (0.6-1.2) 01/25/22 05:33 Est Cr Clr Drug Dosing 65.3 ml/min 01/25/22 05:33 Est GFR ( Amer) 79.4 ml/min 01/25/22 05:33 Est GFR (Non-Af Amer) 68.5 ml/min 01/25/22 05:33 BUN/Creatinine Ratio 12.5 (10-20) 01/23/22 05:35 Glucose 176 mg/dl (70-99(Fasting)) H 01/23/22 05:35 POC Glucose 211 mg/dl (70-99) H 01/25/22 11:35 Fasting Glucose 126 mg/dl (70-99) H 01/25/22 05:33 Estimat Average Glucose 272 mg/dl 01/23/22 05:35 Hemoglobin A1c 11.1 % (4.5-5.6) H 01/23/22 05:35 Calcium 8.6 mg/dl (8.5-10.1) 01/25/22 05:33 Phosphorus 5.5 mg/dl (2.5-4.9) H 01/25/22 05:33 Magnesium 2.1 mg/dl (1.7-2.4) 01/25/22 05:33 Total Bilirubin 0.6 mg/dl (0.2-1.0) D 01/25/22 05:33 AST 13 U/L (13-39) 01/25/22 05:33 ALT 7 U/L (7-52) 01/25/22 05:33 Alkaline Phosphatase 86 U/L (34-104) 01/25/22 05:33 Total Protein 6.0 gm/dl (6.0-8.3) 01/25/22 05:33 Albumin 3.2 gm/dl (3.4-5.0) L 01/25/22 05:33 Globulin 2.8 gm/dl (2.5-4.0) 01/25/22 05:33 Albumin/Globulin Ratio 1.1 (0.9-2) 01/25/22 05:33 SARS-CoV-2, RNA, NAAT NEGATIVE (NEGATIVE) 01/22/22 13:01 Impressions Knee X-Ray 01/22/22 10:17 XR knee RT 3V, XR tibia fibula RT 2V CLINICAL HISTORY: fall, knee pain. Right lower leg pain. COMPARISON STUDY: None. FINDINGS: There is a moderate lipohemarthrosis. There is nondisplaced vertical fracture at the medial tibial plateau which extends to the articular surface. Anterior soft tissue swelling within the knee. No radiopaque foreign bodies. Patchy areas of sclerosis within the medial tibial plateau and femoral condyles likely represent avascular necrosis. No evidence for articular collapse. The distal tibia and fibula are intact. There is a plantar heel spur. IMPRESSION: 1. Nondisplaced medial tibial plateau fracture. 2. Moderate lipohemarthrosis. 3. The distal tibia and fibula are intact. 4. Patchy sclerosis within the medial tibial plateau and femoral condyles likely represents avascular necrosis. ACT 112: Negative or not required by law. Electronically signed by: Caden Dietrich M.D. 01/22/2022 11:21 AM Tibia/Fibula X-Ray 01/22/22 10:17 XR knee RT 3V, XR tibia fibula RT 2V CLINICAL HISTORY: fall, knee pain. Right lower leg pain. COMPARISON STUDY: None. FINDINGS: There is a moderate lipohemarthrosis. There is nondisplaced vertical fracture at the medial tibial plateau which extends to the articular surface. Anterior soft tissue swelling within the knee. No radiopaque foreign bodies. Patchy areas of sclerosis within the medial tibial plateau and femoral condyles likely represent avascular necrosis. No evidence for articular collapse. The distal tibia and fibula are intact. There is a plantar heel spur. IMPRESSION: 1. Nondisplaced medial tibial plateau fracture. 2. Moderate lipohemarthrosis. 3. The distal tibia and fibula are intact. 4. Patchy sclerosis within the medial tibial plateau and femoral condyles likely represents avascular necrosis. ACT 112: Negative or not required by law. Electronically signed by: Caden Dietrich M.D. 01/22/2022 11:[address] 01/22/22 11:40 CT knee RT wo con HISTORY: 66 years-old Female right knee trauma acute right-sided knee pain COMPARISON: Right knee radiographs of same day TECHNIQUE: Multiple axial CT images of the right knee were obtained without the use of IV contrast. Additional 3-D rendering images were generated from a separate workstation. A dose lowering technique was used consistent with the principals of ALARA. FINDINGS: There is a moderate sized lipohemarthrosis of the knee. Mild nonspecific anterior subcutaneous edema. The musculature is within normal limits. Mild arterial calcifications. 3 mm cortical depression without displacement involving the medial tibial plateau likely represents an acute nondisplaced fracture. T here is an acute minimally comminuted fractures involving the medial cortex of the medial femoral condyle (image 61 series 2). Fracture fragments are displaced medially approximately 3 mm. The patella and proximal fibula appear intact. Bone infarct of the proximal tibial metaphysis is noted medially with additional bone infarcts/avascular necrosis present within the medial and lateral femoral cond yles. No resultant articular collapse. Demineralized appearance of the bones. Ligaments and tendons are not well evaluated by CT technique. Dystrophic suprapatellar calcifications are noted within the distal quadriceps. Minimal tricompartmental osteoarthritis. No additional acute fracture IMPRESSION: 1. Acute minimally comminuted and slightly displaced fracture involves the medial cortex of the medial femoral condyle. 2. 3 mm cortical depression of the medial plateau is suggestive of an additional acute fracture. 3. Moderate sized lipohemarthrosis. 4. Bone infarcts/avascular necrosis of the knee. ACT 112: Negative or not required by law. The above report was generated using voice recognition software. It may contain grammatical, syntax or spelling errors. Electronically signed by: Jessee Llamas M.D. 01/22/2022 1:03 PM
[2022-01-25] MEDS ORDERED: FUROSEMIDE 20 MG TAB PO ONE (17:00)
[2022-01-25] MEDS: MICONAZOLE NITRATE-7 (100 MG EA SUPP) BOX PV SCH (20:50)
[2022-01-25] MEDS ORDERED: LANTUS PER UNIT CHARGE SQ SCH (21:00)
[2022-01-26] MEDS: ACETAMINOPHEN 500 MG TAB PO SCH ×3 (00:16→16:03)
[2022-01-26] MEDS: oxyCODONE HCL IR 5 MG TAB (IMMEDIATE RELEASE) PO PRN ×3 (00:18→20:22)
[2022-01-26 06:47] LABS: Basophils # (auto) 0.03 K/uL (0-0.2); Basophils % (auto) 0.4 %; Eosinophils # (auto) 0.35 K/uL (0-0.50); Eosinophils % (auto) 4.3 %; Hematocrit (blood only) 37.3 % (34.1-44.9); Hemoglobin 12.3 g/dl (12.0-16.0); Immature Granulocytes # (auto) 0.03 K/uL (0.00-0.02); Immature Granulocytes % (auto) 0.4 %; Lymphocytes # (auto) 2.84 K/uL (1.2-3.4); Lymphocytes % (auto) 35.2 %; Mean Corpuscular Hemoglobin 29.9 pg (25.0-34.0); Mean Corpuscular Volume 90.5 fL (80.0-100.0); Mean Platelet Volume 10.6 fL (9.4-12.3); Monocytes # (auto) 0.77 K/uL (0.24-0.82); Monocytes % (auto) 9.6 %; Neutrophils # (auto) 4.04 K/uL (1.4-6.5); Neutrophils % (auto) 50.1 %; Platelet Count 339 K/uL (130-400); RDW Standard Deviation 46.3 fL (36.4-46.3); Red Blood Count 4.12 M/uL (3.93-5.22); White Blood Count 8.06 K/ul (4.8-10.8)
[2022-01-26 07:18] LABS: Albumin Globulin Ratio 1.2 (0.9-2); Albumin Level 3.2 gm/dl (3.4-5.0); Bilirubin,Total 0.4 mg/dl (0.2-1.0); Calcium 8.1 mg/dl (8.5-10.1); Creatinine Clr Calc Pharmacy 56.9 ml/min; Est GFR (African American) 67.2 ml/min; Globulin 2.6 gm/dl (2.5-4.0); Magnesium 1.9 mg/dl (1.7-2.4); Phosphorus 4.5 mg/dl (2.5-4.9); Potassium 3.9 mmol/L (3.5-5.1); Total Protein 5.8 gm/dl (6.0-8.3)
--- NOTE | 2022-01-26 07:32 | Hospitalist Progress Note ---
Date of Service January 26, 2022 Assessment & Plan (1) Tibial plateau fracture, right: Plan: Mechanical fall after cleaning up dog urine at home and fell on her right knee Imaging with CT scan: * 1. Acute minimally comminuted and slightly displaced fracture involves the medial cortex of the medial femoral condyle. * 2. 3 mm cortical depression of the medial plateau is suggestive of an additional acute fracture. Orthopedics consulted Conservative management with hinged brace (I placed consult for orthotics 01/25 as she had not received yet), NWB with crutches/walker/WC assistance Pain control/antiemetics prn Lovenox SQ for DVT prevention Will also check Vit D level in AM as well as B12 due to fracture as well as possible underlying neuropathy BOTH LOW -- Vit D 13, B12 93 and replacement ordered as outlined below PT/OT consulted -- rec rehab. CM sent referrals, hopefully bed in next day or two, [facility] (2) Chronic respiratory failure with hypoxia: Plan: Post COVID, history of ARDSappears at baseline however still on 2L with drop to 70s w/ ambulation States uses 1L at night, working on getting CPAP outpatient Consider 2step prior to discharge, but also note on lasix 20mg PO daily but no overt HF but some diminished in the bases/trace LE edema and resumed such and will monitor Does have murmur on exam, states is known and follows with cards and to have repeat ECHO after CPAP outpatient. Most recent ECHO w/o valvular issue. Denies CP/increased SOB and stated 2L was placed due to her having low sats with increased pain with any ambulation --> murmur improved with lasix, ?outflow tract Additional lasix x 1 today Titrate to maintain sats -- room air at rest, needs 1L or more w/ ambulation. Consider repeat 2 step after getting extra lasix today if any persistent issues Monitor (3) Obstructive sleep apnea: Plan: CPAP qHS. Patient poorly tolerant to masks, has been able to tolerate nasal pillow if available asked RN to call [facility], they will provide nasal pillow tonight 01/26 to try as hasn't been using CPAP inpatient Would also help w/ BP control Outpt set up for CPAP (4) Pulmonary hypertension: Plan: Continue home therapy; pulmonary follow-up Also on lasix 20mg PO daily, hadn't gotten since admit but resumed 01/25 x 2 doses and will again today --> on 1L this morning, 92% on RA later and after additional dose planning for usual 20mg daily moving forward Needing CPAP arranged outpatient as already working on this. Reports Severe sleep apnea out polysom testing (5) HTN (hypertension): Plan: Remains on metoprolol succinate 12.5mg TID, furosemide 20mg daily BP stable, some elevations 2nd to pain this morning but no headache/cp/sob reported currently lasix resumed 01/25, additional dose PM and will plan for repeat dose this afternoon as well (6) DMII (diabetes mellitus, type 2): Plan: Sugars trending high; pharmacy glycemic consult; poor long-term [id number] 11.1; needs to work with PCP/endocrinology as outpatient BSGs acceptable but slightly higher, tightened novolog parameters yesterday per pharmacy monitor/outpatient follow up (7) Asthma: Plan: No evidence of exacerbation; DuoNeb as needed (8) Vitamin D deficiency: Plan: low at 13, checked given fall/fracture ergocalciferol 50,000 weekly, continue at d/c and outpatient follow up (9) B12 deficiency: Plan: checked due to neuropathy and reported brain fog after covid LOW at 93, IM injections while inpatient x5 days or however long inpatient, then transition to PO at discharge Will also check folate/iron studies w/ AM labs given MCV wnl at 90 Plan continued inpatient stay, awaiting rehab Admission and Anticipated Discharge Date Admission Date: January 25, 2022 Supervising Physician Co-Signing Physician Notes PA Supervision Note: I did not personally see or examine the patient today, but I verified all robin points of TYSON Johnson's assessment and plan with the following exceptions/additions: None Subjective Eval this morning, doing alright. Improvement in tightness to leg, not needed anything for pain. Improvement after lasix last night. Currently on 1L but able to remove while in bed. Lung sounds improved and discussed additional dose lasix this afternoon x 1. She also endorses prior symptoms of cough/runny nose improved since her lasix was resumed as well. She notes in rehab w/ covid after steroids she had swelling and that's when was started on daily lasix and was told she should have been on that previously as well. Also reviewed brain fog/neuropathy symptoms and low B12 and she endorses she got a shot this morning and oral Vitamin D. Having issues with constipation but passing some gas. +BS and just got a dulcolax suppository. Talked with CM yesterday and waiting for therapy. Stated she got her brace yesterday afternoon and therapy after and will touch base with CM today. Hopeful for ticket out of here in next couple of days to rehab. Questions/concerns addressed. Review of Systems Review of Systems: All systems reviewed & are unremarkable except as noted in HPI & below Physical Exam Physical Exam: General: WD/WN obese female sitting up in bed, NAD HEENT: head normocephalic, atraumatic, mmm, trachea midline without deviation Resp: no cough, no tachpnea, diminished in the bases with less associated crackles, no wheezing on 1L NC CV: regular rate/rhythm, +less harsh SYSTOLIC MURMUR 2-3/6, no rub/gallop, trace pitting LE edema, calves non-tender GI:+BS, slightly distended, nontender : no frausto MSK/Neuro: punctate lesion superior aspect of knee, full ROM R ankle/foot, hinged brace to R knee, strength 3/5 R compared to the left, pulses palpable, cap refill wnl. slightly diminished sensation to light touch b/l LE Psych: AOx3, pleasant and cooperative Skin: warm, dry Results & Data Results & Data ([facility]) Vital Signs (Past 12 Hours) Vital Signs Temp Pulse Resp BP BP Pulse Ox O2 Del Method 01/26/22 07:29 36.5 C 64 18 162/94 H 96 Nasal Cannula 01/26/22 00:18 37.0 C 72 18 150/83 H 96 Nasal Cannula 01/25/22 19:35 Nasal Cannula O2 Flow Rate 01/26/22 07:29 1 01/26/22 00:18 1 01/25/22 19:35 1 Laboratory Results 01/26/22 01/26/22 01/26/22 Range/Units 05:27 05:27 05:27 WBC 8.06 (4.8-10.8) K/ul RBC 4.12 (3.93-5.22) M/uL Hgb 12.3 (12.0-16.0) g/dl Hct 37.3 (34.1-44.9) % MCV 90.5 (80.0-100.0) fL MCH 29.9 (25.0-34.0) pg MCHC 33.0 (32.0-36.0) g/dL RDW Std Deviation 46.3 (36.4-46.3) fL RDW Coeff of Ralf 14.0 (11.5-14.5) % Plt Count 339 (130-400) K/uL MPV 10.6 (9.4-12.3) fL Immature Gran % (Auto) 0.4 % Neut % (Auto) 50.1 % Lymph % (Auto) 35.2 % Perkins % (Auto) 9.6 % Eos % (Auto) 4.3 % Baso % (Auto) 0.4 % Neut # (Auto) 4.04 (1.4-6.5) K/uL Lymph # (Auto) 2.84 (1.2-3.4) K/uL Perkins # (Auto) 0.77 (0.24-0.82) K/uL Eos # (Auto) 0.35 (0-0.50) K/uL Baso # (Auto) 0.03 (0-0.2) K/uL Immature Gran # (Auto) 0.03 H (0.00-0.02) K/uL Sodium 136 (136-145) mmol/L Potassium 3.9 (3.5-5.1) mmol/L Chloride 102 (98-107) mmol/L Carbon Dioxide 27 (21-32) mmol/L Anion Gap 7 (3-11) BUN 24 H (6-23) mg/dl Creatinine 1.01 (0.6-1.2) mg/dl Est Cr Clr Drug Dosing 56.9 ml/min Est GFR ( Amer) 67.2 ml/min Est GFR (Non-Af Amer) 58.0 ml/min POC Glucose (70-99) mg/dl Fasting Glucose 211 H (70-99) mg/dl Calcium 8.1 L (8.5-10.1) mg/dl Phosphorus 4.5 D (2.5-4.9) mg/dl Magnesium 1.9 (1.7-2.4) mg/dl Total Bilirubin 0.4 (0.2-1.0) mg/dl AST 14 (13-39) U/L ALT 8 (7-52) U/L Alkaline Phosphatase 94 (34-104) U/L Total Protein 5.8 L (6.0-8.3) gm/dl Albumin 3.2 L (3.4-5.0) gm/dl Globulin 2.6 (2.5-4.0) gm/dl Albumin/Globulin Ratio 1.2 (0.9-2) Vitamin B12 Pending 25-OH Vitamin D Total 01/26/22 01/25/22 01/25/22 Range/Units 05:27 20:47 17:12 WBC (4.8-10.8) K/ul RBC (3.93-5.22) M/uL Hgb (12.0-16.0) g/dl Hct (34.1-44.9) % MCV (80.0-100.0) fL MCH (25.0-34.0) pg MCHC (32.0-36.0) g/dL RDW Std Deviation (36.4-46.3) fL RDW Coeff of Ralf (11.5-14.5) % Plt Count (130-400) K/uL MPV (9.4-12.3) fL Immature Gran % (Auto) % Neut % (Auto) % Lymph % (Auto) % Perkins % (Auto) % Eos % (Auto) % Baso % (Auto) % Neut # (Auto) (1.4-6.5) K/uL Lymph # (Auto) (1.2-3.4) K/uL Perkins # (Auto) (0.24-0.82) K/uL Eos # (Auto) (0-0.50) K/uL Baso # (Auto) (0-0.2) K/uL Immature Gran # (Auto) (0.00-0.02) K/uL Sodium (136-145) mmol/L Potassium (3.5-5.1) mmol/L Chloride (98-107) mmol/L Carbon Dioxide (21-32) mmol/L Anion Gap (3-11) BUN (6-23) mg/dl Creatinine (0.6-1.2) mg/dl Est Cr Clr Drug Dosing ml/min Est GFR ( Amer) ml/min Est GFR (Non-Af Amer) ml/min POC Glucose 229 H 164 H (70-99) mg/dl Fasting Glucose (70-99) mg/dl Calcium (8.5-10.1) mg/dl Phosphorus (2.5-4.9) mg/dl Magnesium (1.7-2.4) mg/dl Total Bilirubin (0.2-1.0) mg/dl AST (13-39) U/L ALT (7-52) U/L Alkaline Phosphatase (34-104) U/L Total Protein (6.0-8.3) gm/dl Albumin (3.4-5.0) gm/dl Globulin (2.5-4.0) gm/dl Albumin/Globulin Ratio (0.9-2) Vitamin B12 25-OH Vitamin D Total Pending 01/25/22 01/25/22 Range/Units 11:35 08:08 WBC (4.8-10.8) K/ul RBC (3.93-5.22) M/uL Hgb (12.0-16.0) g/dl Hct (34.1-44.9) % MCV (80.0-100.0) fL MCH (25.0-34.0) pg MCHC (32.0-36.0) g/dL RDW Std Deviation (36.4-46.3) fL RDW Coeff of Ralf (11.5-14.5) % Plt Count (130-400) K/uL MPV (9.4-12.3) fL Immature Gran % (Auto) % Neut % (Auto) % Lymph % (Auto) % Perkins % (Auto) % Eos % (Auto) % Baso % (Auto) % Neut # (Auto) (1.4-6.5) K/uL Lymph # (Auto) (1.2-3.4) K/uL Perkins # (Auto) (0.24-0.82) K/uL Eos # (Auto) (0-0.50) K/uL Baso # (Auto) (0-0.2) K/uL Immature Gran # (Auto) (0.00-0.02) K/uL Sodium (136-145) mmol/L Potassium (3.5-5.1) mmol/L Chloride (98-107) mmol/L Carbon Dioxide (21-32) mmol/L Anion Gap (3-11) BUN (6-23) mg/dl Creatinine (0.6-1.2) mg/dl Est Cr Clr Drug Dosing ml/min Est GFR ( Amer) ml/min Est GFR (Non-Af Amer) ml/min POC Glucose 211 H 118 H (70-99) mg/dl Fasting Glucose (70-99) mg/dl Calcium (8.5-10.1) mg/dl Phosphorus (2.5-4.9) mg/dl Magnesium (1.7-2.4) mg/dl Total Bilirubin (0.2-1.0) mg/dl AST (13-39) U/L ALT (7-52) U/L Alkaline Phosphatase (34-104) U/L Total Protein (6.0-8.3) gm/dl Albumin (3.4-5.0) gm/dl Globulin (2.5-4.0) gm/dl Albumin/Globulin Ratio (0.9-2) Vitamin B12 25-OH Vitamin D Total PG Care Time/CCT Total # of Minutes Spent Total Time Spent with Patient: Total time spent is greater than 50% in coordination of care (as documented) at patient's floor/unit and/or counseling patient: Coding Level of Care Code 84441 Subseq Hosp Care Lvl 3 Diagnoses Tibial plateau fracture, right S82.141A Chronic respiratory failure with hypoxia J96.11 Obstructive sleep apnea G47.33 Pulmonary hypertension I27.20 HTN (hypertension) I10 DMII (diabetes mellitus, type 2) E11.9 Asthma J45.909 Vitamin D deficiency E55.9 B12 deficiency E53.8
[2022-01-26] MEDS ORDERED: bisacodyL 10 MG SUPP PR STA (08:24)
[2022-01-26] MEDS ORDERED: bisacodyL 5 MG TABEC PO ONE (08:24)
[2022-01-26] MEDS: INSULIN ASPART PER UNIT SC SCH ×4 (08:30→21:06)
[2022-01-26] MEDS: POLYETHYLENE (MIRALAX) 17 GM PACK PO SCH (08:34)
[2022-01-26] MEDS ORDERED: ERGOCALCIFEROL 50,000 UNITS 1250 MCG CAP PO SCH (09:00)
[2022-01-26] MEDS ORDERED: LANTUS PER UNIT CHARGE SQ SCH ×2 (09:00)
[2022-01-26] MEDS: CETIRIZINE HCL 10 MG TABLET PO SCH (09:19)
[2022-01-26] MEDS: SILDENAFIL CITRATE 20 MG TABLET PO SCH ×3 (09:19→20:23)
[2022-01-26] MEDS: DOCUSATE SODIUM 100 MG CAP PO SCH ×2 (09:19→20:23)
[2022-01-26] MEDS: FUROSEMIDE 20 MG TAB PO SCH (09:19)
[2022-01-26] MEDS: ENOXAPARIN INJ 40 MG/0.4 ML SYR SQ SCH (09:20)
[2022-01-26] MEDS: METOPROLOL SUCC 25MG EXT REL TAB PO SCH ×3 (09:20→20:24)
[2022-01-26] MEDS: IBUPROFEN 200 MG TAB PO SCH (09:20)
[2022-01-26] MEDS: DOCUSATE SODIUM/SENNA 50/8.6MG TAB PO SCH (09:21)
[2022-01-26] MEDS: CYANOCOBALAMIN 1000 MCG/ML VIAL IM SCH (09:47)
--- NOTE | 2022-01-26 10:40 | Orthopedic Progress Note ---
Date of Service January 26, 2022 Assessment & Plan (1) Tibial plateau fracture, right: Plan: Plan is to treat conservatively with knee hinge brace, NWB with crutches/walker/wheel chair to assist in ambulation. May remove brace for hygiene purposes and for PT. Frequently ice, at least 20 minutes 5 times a day and elevate right leg above heart Pain control per primary Orthopedically cleared for discharge to rehab facility PT/OT - she is able to do active/passive range of motion of knee as tolerated Recommend DVT prophylaxis with Aspirin, MIRI stockings Follow up with Dr Brunner in 2 weeks at [facility] (02/05/22) With question contact our office at [phone] Admission and Anticipated Discharge Date Admission Date: January 25, 2022 Subjective This 66 yo F is seen today for f/u of Rt tibial plateau and medial femoral condyle fracture. States that brace is comfortable. States that she needs to go to rehab facility and has discussed with CM. Waiting on insurance approval. Currently feels fine. Tika CP, SOB, Nausea, vomiting, diarrhea or diff voiding. No fever, chills, sweats, fatigue or N/T in Right LE Review of Systems Review of Systems: All systems reviewed & are unremarkable except as noted in HPI & below Physical Exam Physical Exam: Lower Extremity: Hinged knee brace placed. Settings adjusted to 0 degrees of extension and 90 of flexion yesterday. Active flex to 70. Passive ext to 0. Skin intact. 1 + effusion. Appropriate dexterity of digits, foot and ankle. Able to SLR. Quad strength 3/5. Able to detect light sensation in foot. Periph pulses palpable. TTP over entire knee most exquisite at site of tibial plateau fx and medial femoral condyle. NV intact. Results & Data ([facility]) Vital Signs (Past 12 Hours) Vital Signs Temp Pulse Resp BP BP Pulse Ox O2 Del Method 01/26/22 09:48 92 Room Air 01/26/22 07:29 36.5 C 64 18 162/94 H 96 Nasal Cannula 01/26/22 00:18 37.0 C 72 18 150/83 H 96 Nasal Cannula O2 Flow Rate 01/26/22 09:48 01/26/22 07:29 1 01/26/22 00:18 1 Diagnostic Findings Laboratory Results WBC 8.06 K/ul (4.8-10.8) 01/26/22 05:27 RBC 4.12 M/uL (3.93-5.22) 01/26/22 05:27 Hgb 12.3 g/dl (12.0-16.0) 01/26/22 05:27 Hct 37.3 % (34.1-44.9) 01/26/22 05:27 MCV 90.5 fL (80.0-100.0) 01/26/22 05:27 MCH 29.9 pg (25.0-34.0) 01/26/22 05:27 MCHC 33.0 g/dL (32.0-36.0) 01/26/22 05:27 RDW Std Deviation 46.3 fL (36.4-46.3) 01/26/22 05:27 RDW Coeff of Ralf 14.0 % (11.5-14.5) 01/26/22 05:27 Plt Count 339 K/uL (130-400) 01/26/22 05:27 MPV 10.6 fL (9.4-12.3) 01/26/22 05:27 Immature Gran % (Auto) 0.4 % 01/26/22 05:27 Neut % (Auto) 50.1 % 01/26/22 05:27 Lymph % (Auto) 35.2 % 01/26/22 05:27 [place] % (Auto) 9.6 % 01/26/22 05:27 Eos % (Auto) 4.3 % 01/26/22 05:27 Baso % (Auto) 0.4 % 01/26/22 05:27 Neut # (Auto) 4.04 K/uL (1.4-6.5) 01/26/22 05:27 Lymph # (Auto) 2.84 K/uL (1.2-3.4) 01/26/22 05:27 [place] # (Auto) 0.77 K/uL (0.24-0.82) 01/26/22 05:27 Eos # (Auto) 0.35 K/uL (0-0.50) 01/26/22 05:27 Baso # (Auto) 0.03 K/uL (0-0.2) 01/26/22 05:27 Immature Gran # (Auto) 0.03 K/uL (0.00-0.02) H 01/26/22 05:27 PT 10.5 Seconds (9.0-12.0) 01/23/22 05:35 INR 1.0 (0.9-1.1) 01/23/22 05:35 Sodium 136 mmol/L (136-145) 01/26/22 05:27 Potassium 3.9 mmol/L (3.5-5.1) 01/26/22 05:27 Chloride 102 mmol/L (98-107) 01/26/22 05:27 Carbon Dioxide 27 mmol/L (21-32) 01/26/22 05:27 Anion Gap 7 (3-11) 01/26/22 05:27 BUN 24 mg/dl (6-23) H 01/26/22 05:27 Creatinine 1.01 mg/dl (0.6-1.2) 01/26/22 05:27 Est Cr Clr Drug Dosing 56.9 ml/min 01/26/22 05:27 Est GFR ( Amer) 67.2 ml/min 01/26/22 05:27 Est GFR (Non-Af Amer) 58.0 ml/min 01/26/22 05:27 BUN/Creatinine Ratio 12.5 (10-20) 01/23/22 05:35 Glucose 176 mg/dl (70-99(Fasting)) H 01/23/22 05:35 POC Glucose 166 mg/dl (70-99) H 01/26/22 08:06 Fasting Glucose 211 mg/dl (70-99) H 01/26/22 05:27 Estimat Average Glucose 272 mg/dl 01/23/22 05:35 Hemoglobin A1c 11.1 % (4.5-5.6) H 01/23/22 05:35 Calcium 8.1 mg/dl (8.5-10.1) L 01/26/22 05:27 Phosphorus 4.5 mg/dl (2.5-4.9) D 01/26/22 05:27 Magnesium 1.9 mg/dl (1.7-2.4) 01/26/22 05:27 Total Bilirubin 0.4 mg/dl (0.2-1.0) 01/26/22 05:27 AST 14 U/L (13-39) 01/26/22 05:27 ALT 8 U/L (7-52) 01/26/22 05:27 Alkaline Phosphatase 94 U/L (34-104) 01/26/22 05:27 Total Protein 5.8 gm/dl (6.0-8.3) L 01/26/22 05:27 Albumin 3.2 gm/dl (3.4-5.0) L 01/26/22 05:27 Globulin 2.6 gm/dl (2.5-4.0) 01/26/22 05:27 Albumin/Globulin Ratio 1.2 (0.9-2) 01/26/22 05:27 Vitamin B12 93 pg/ml (180-914) L 01/26/22 05:27 25-OH Vitamin D Total 13.0 ng/ml (30-100) L 01/26/22 05:27 SARS-CoV-2, RNA, NAAT NEGATIVE (NEGATIVE) 01/22/22 13:01 Impressions Knee X-Ray 01/22/22 10:17 XR knee RT 3V, XR tibia fibula RT 2V CLINICAL HISTORY: fall, knee pain. Right lower leg pain. COMPARISON STUDY: None. FINDINGS: There is a moderate lipohemarthrosis. There is nondisplaced vertical fracture at the medial tibial plateau which extends to the articular surface. Anterior soft tissue swelling within the knee. No radiopaque foreign bodies. Patchy areas of sclerosis within the medial tibial plateau and femoral condyles likely represent avascular necrosis. No evidence for articular collapse. The distal tibia and fibula are intact. There is a plantar heel spur. IMPRESSION: 1. Nondisplaced medial tibial plateau fracture. 2. Moderate lipohemarthrosis. 3. The distal tibia and fibula are intact. 4. Patchy sclerosis within the medial tibial plateau and femoral condyles likely represents avascular necrosis. ACT 112: Negative or not required by law. Electronically signed by: Caden Dietrich M.D. 01/22/2022 11:21 AM Tibia/Fibula X-Ray 01/22/22 10:17 XR knee RT 3V, XR tibia fibula RT 2V CLINICAL HISTORY: fall, knee pain. Right lower leg pain. COMPARISON STUDY: None. FINDINGS: There is a moderate lipohemarthrosis. There is nondisplaced vertical fracture at the medial tibial plateau which extends to the articular surface. Anterior soft tissue swelling within the knee. No radiopaque foreign bodies. Patchy areas of sclerosis within the medial tibial plateau and femoral condyles likely represent avascular necrosis. No evidence for articular collapse. The distal tibia and fibula are intact. There is a plantar heel spur. IMPRESSION: 1. Nondisplaced medial tibial plateau fracture. 2. Moderate lipohemarthrosis. 3. The distal tibia and fibula are intact. 4. Patchy sclerosis within the medial tibial plateau and femoral condyles likely represents avascular necrosis. ACT 112: Negative or not required by law. Electronically signed by: Caden Dietrich M.D. 01/22/2022 11:[address] 01/22/22 11:40 CT knee RT wo con HISTORY: 66 years-old Female right knee trauma acute right-sided knee pain COMPARISON: Right knee radiographs of same day TECHNIQUE: Multiple axial CT images of the right knee were obtained without the use of IV contrast. Additional 3-D rendering images were generated from a separate workstation. A dose lowering technique was used consistent with the principals of ALARA. FINDINGS: There is a moderate sized lipohemarthrosis of the knee. Mild nonspecific anterior subcutaneous edema. The musculature is within normal limits. Mild arterial calcifications. 3 mm cortical depression without displacement involving the medial tibial plateau likely represents an acute nondisplaced fracture. There is an acute minimally comminuted fractures involving the medial cortex of the medial femoral condyle (image 61 series 2). Fracture fragments are displaced medially approximately 3 mm. The patella and proximal fibula appear intact. Bone infarct of the proximal tibial metaphysis is noted medially with additional bone infarcts/avascular necrosis present within the medial and lateral femoral condyles. No resultant articular collapse. Demineralized appearance of the bones. Ligaments and tendons are not well evaluated by CT technique. Dystrophic suprapatellar calcifications are noted within the distal quadriceps. Minimal tricompartmental osteoarthritis. No additional acute fracture IMPRESSION: 1. Acute minimally comminuted and slightly displaced fracture involves the medial cortex of the medial femoral condyle. 2. 3 mm cortical depression of the medial plateau is suggestive of an additional acute fracture. 3. Moderate sized lipohemarthrosis. 4. Bone infarcts/avascular necrosis of the knee. ACT 112: Negative or not required by law. The above report was generated using voice recognition software. It may contain grammatical, syntax or spelling errors. Electronically signed by: Jessee Llamas M.D. 01/22/2022 1:03 PM
--- NOTE | 2022-01-26 12:19 | Pharmacy Report ---
Pharmacy Glycemic Short Note 2 - Date of Service January 26, 2022 - Glycemic Short BSG Results (Last 24 hours): 01/25/22 01/25/22 01/26/22 17:12 20:47 05:27 POC Glucose 164 H 229 H Fasting Glucose 211 H 01/26/22 01/26/22 08:06 12:04 POC Glucose 166 H 192 H Fasting Glucose OUTPATIENT ANTIDIABETIC REGIMEN: * Novolin 70/30 insulin 30 units SC qAM, 15 units SC qPM HbA1c: 11.1% (01/23/22) ASSESSMENT: 01/26/22 * BSGs remained intermittently elevated yesterday * Received 18 units of Lantus and 21 units of prandial/correctional Novolog * Fasting BSG of 166 mg/dL this morning - will increase basal * Given BSG elevation throughout the day yesterday, will also tighten Novolog parameters 01/25/22 * NH is a 66 year old female admitted on 01/22/22 with femoral condolyte fracture s/p fall * Plan at this time is to treat conservatively * Patient with poorly controlled T2DM based on HbA1c * Pharmacy consulted for glycemic management on 01/24/22 * Previous orders of Lantus 8 units SC BID + Novolog CF of 50 and carb ratio of 17 * BSGs elevated with this regimen * Fasting BSG of 118 mg/dL this morning, will plan to continue current basal dose (allow for slight increase at HS if needed) * Elevated BSGs throughout day will likely improve with tightened Novolog parameters PLAN FOR INPATIENT GLYCEMIC CONTROL: * Basal insulin - increase * Lantus 8-12 units SQ BID (see EHR for details) * Bolus insulin - tighten * NovoLog per scale ACHS or Q6hrs while NPO * Goal Range: Low 110 mg/dL - High 140 mg/dL * Correction Factor: 25 mg/dL/unit * Nutritional / Prandial insulin per carb ratio of 1 unit per 9 grams CHO consumed
[2022-01-26] MEDS ORDERED: FUROSEMIDE 20 MG TAB PO ONE (15:00)
[2022-01-26] MEDS ORDERED: FUROSEMIDE 20 MG TAB PO SCH (15:00)
[2022-01-26] MEDS: NYSTATIN POWDER 15GM BTL EXT PRN (18:31)
[2022-01-26] MEDS: MICONAZOLE NITRATE-7 (100 MG EA SUPP) BOX PV SCH (20:24)
[2022-01-26] MEDS: LANTUS PER UNIT CHARGE SQ SCH (21:05)
[2022-01-27] MEDS: ACETAMINOPHEN 500 MG TAB PO SCH ×3 (00:22→16:46)
[2022-01-27 06:14] LABS: Basophils # (auto) 0.03 K/uL (0-0.2); Basophils % (auto) 0.3 %; Eosinophils # (auto) 0.37 K/uL (0-0.50); Eosinophils % (auto) 4.1 %; Hematocrit (blood only) 38.9 % (34.1-44.9); Hemoglobin 12.7 g/dl (12.0-16.0); Immature Granulocytes # (auto) 0.03 K/uL (0.00-0.02); Immature Granulocytes % (auto) 0.3 %; Lymphocytes # (auto) 3.59 K/uL (1.2-3.4); Lymphocytes % (auto) 39.7 %; Mean Corpuscular Hemoglobin 29.5 pg (25.0-34.0); Mean Corpuscular Hgb Conc 32.6 g/dL (32.0-36.0); Mean Corpuscular Volume 90.3 fL (80.0-100.0); Mean Platelet Volume 9.9 fL (9.4-12.3); Monocytes # (auto) 0.71 K/uL (0.24-0.82); Monocytes % (auto) 7.9 %; Neutrophils # (auto) 4.31 K/uL (1.4-6.5); Neutrophils % (auto) 47.7 %; Platelet Count 363 K/uL (130-400); RDW Coefficient of Variation 14.1 % (11.5-14.5); RDW Standard Deviation 47.1 fL (36.4-46.3); Red Blood Count 4.31 M/uL (3.93-5.22); White Blood Count 9.04 K/ul (4.8-10.8)
[2022-01-27 06:55] LABS: Ferritin 252.2 ng/ml (8-388)
[2022-01-27 07:10] LABS: Albumin Globulin Ratio 1.1 (0.9-2); Albumin Level 3.2 gm/dl (3.4-5.0); Bilirubin,Total 0.5 mg/dl (0.2-1.0); Calcium 8.6 mg/dl (8.5-10.1); Creatinine Clr Calc Pharmacy 66.8 ml/min; Est GFR (African American) 81.6 ml/min; Est GFR (Non-African American) 70.4 ml/min; Globulin 2.9 gm/dl (2.5-4.0); Magnesium 1.8 mg/dl (1.7-2.4); Phosphorus 4.8 mg/dl (2.5-4.9); Potassium 3.9 mmol/L (3.5-5.1); Total Protein 6.1 gm/dl (6.0-8.3)
--- NOTE | 2022-01-27 07:25 | Hospitalist Progress Note ---
Date of Service January 27, 2022 Assessment & Plan (1) Tibial plateau fracture, right: Plan: Mechanical fall after cleaning up dog urine at home and fell on her right knee Imaging with CT scan: * 1. Acute minimally comminuted and slightly displaced fracture involves the medial cortex of the medial femoral condyle. * 2. 3 mm cortical depression of the medial plateau is suggestive of an additional acute fracture. Orthopedics consulted Conservative management with hinged brace (I placed consult for orthotics 01/25 as she had not received yet), NWB with crutches/walker/WC assistance Pain control/antiemetics prn Bowel regimen -- added suppository yesterday, enema x 1 for today Lovenox SQ for DVT prevention --> switched to ASA 325mg BID (denied any hx bleeding) Checked Vit D level in AM as well as B12 due to fracture as well as possible underlying neuropathy BOTH LOW -- Vit D 13, B12 93 and replacement ordered as outlined below PT/OT consulted -- rec rehab. P2P completed this morning, denied acute inpatient rehab but stated would approve SNF. Notified joi [facility]AV[facility] to have bed, likely d/c tomorrow (2) Chronic respiratory failure with hypoxia: Plan: Post COVID, history of ARDS appears at baseline however still on 2L with drop to 70s w/ ambulation two days ago and stated uses 1L at night, working on getting CPAP outpatient Does have murmur on exam and suspect underlying CHF, states is known murmur and follows with cards/pulm and to have repeat ECHO after CPAP arranged as outpatient. Most recent ECHO w/o valvular issue. ?also outflow tract given volume overload earlier in the week Consider 2step prior to discharge to demonstrate needs, but also note on lasix 20mg PO daily but no overt HF but some diminished in the bases/trace LE edema 01/25 and was given 20mg lasix and additional in evening for 01/26 as well. Given 40mg PO x 1 this morning and almost back to baseline and expect tomorrows usual 20mg daily to prevent worsening congestion. Currently 94% on RA later this morning after received dose (3) Obstructive sleep apnea: Plan: CPAP qHS. Patient poorly tolerant to masks, has been able to tolerate nasal pillow if available Nasal pillows to have been attempted but appears was on 1L overnight Continue outpt f/u for CPAP arrangements given severe sleep apnea on recent polysom last month (4) Pulmonary hypertension: Plan: Continue home therapy sildenafil; pulmonary follow-up Also on lasix 20mg PO daily, hadn't gotten since admit but resumed 01/25 x 2 doses and again 01/26 and given 40mg this morning and resume usual 20mg daily for tomorrow Lungs improved, LE edema improved --> continue to monitor (5) HTN (hypertension): Plan: Remains on metoprolol succinate 12.5mg TID, furosemide 20mg daily BP stable 138/82, some elevations 2nd to pain (6) DMII (diabetes mellitus, type 2): Plan: Sugars trending high; pharmacy glycemic consult; poor long-term opqicitK1a 11.1 BSGs acceptable but slightly higher, tightened novolog parameters yesterday per pharmacy monitor/outpatient follow up 01/27--> tightened further last evening with improvement Outpt f/u (7) Asthma: Plan: No evidence of exacerbation; DuoNeb as needed lasix for volume overload as above (8) Vitamin D deficiency: Plan: low at 13, checked given fall/fracture ergocalciferol 50,000 weekly, continue at d/c and outpatient follow up (9) B12 deficiency: Plan: checked due to neuropathy and reported brain fog after covid LOW at 93, IM injections while inpatient x5 days or however long inpatient, then transition to PO at discharge Iron studies//folate without abn Plan continued inpatient stay, awaiting rehab but likely bed available tomorrow to [place]. CM following Admission and Anticipated Discharge Date Admission Date: January 25, 2022 Subjective Eval this morning. Doing well, little sore but states getting better. Eating/drinking no issues but less gas and still no BM. Discussed enema and will order. She is tired of "dicking around to have a poop" and will ask RN to administer fleets and monitor response. Discussed P2P and will attempt to call this morning to get approval. She notes her breathing much better and even in the 90s when sleeping last night. Discussed extra dose this morning as well given improvement and hopefully tomorrow back to usual dosing. Questions/concerns addressed at this time. Review of Systems Review of Systems: All systems reviewed & are unremarkable except as noted in HPI & below Physical Exam Physical Exam: General: WD/WN obese female sitting up in bed, NAD HEENT: head normocephalic, atraumatic, mmm, trachea midline without deviation Resp: no cough, no tachypnea, diminished in the bases with less associated crackles, no wheezing on 1L NC currently CV: regular rate/rhythm, +less harsh SYSTOLIC MURMUR 2-3/6, no rub/gallop, trace pitting LE edema (improving), 1+ pedal edema, calves non-tender GI:+BS, slightly distended, nontender : no frausto MSK/Neuro: punctate lesion superior aspect of knee, full ROM R ankle/foot, hinged brace to R knee, strength 3/5 R compared to the left, pulses palpable, cap refill wnl. slightly diminished sensation to light touch b/l LE Psych: AOx3, pleasant and cooperative Skin: warm, dry Results & Data Results & Data ([facility]) Vital Signs (Past 12 Hours) Vital Signs Temp Pulse Resp BP Pulse Ox O2 Del Method O2 Flow Rate 01/26/22 22:41 36.3 C L 84 20 109/71 96 Nasal Cannula 1 01/26/22 22:01 36.6 C 85 18 133/69 94 Room Air 01/26/22 19:55 Room Air, Nasal Cannula Laboratory Results 01/27/22 01/27/22 01/27/22 Range/Units 06:00 06:00 06:00 WBC 9.04 (4.8-10.8) K/ul RBC 4.31 (3.93-5.22) M/uL Hgb 12.7 (12.0-16.0) g/dl Hct 38.9 (34.1-44.9) % MCV 90.3 (80.0-100.0) fL MCH 29.5 (25.0-34.0) pg MCHC 32.6 (32.0-36.0) g/dL RDW Std Deviation 47.1 H (36.4-46.3) fL RDW Coeff of Ralf 14.1 (11.5-14.5) % Plt Count 363 (130-400) K/uL MPV 9.9 (9.4-12.3) fL Immature Gran % (Auto) 0.3 % Neut % (Auto) 47.7 % Lymph % (Auto) 39.7 % Upson % (Auto) 7.9 % Eos % (Auto) 4.1 % Baso % (Auto) 0.3 % Neut # (Auto) 4.31 (1.4-6.5) K/uL Lymph # (Auto) 3.59 H (1.2-3.4) K/uL Upson # (Auto) 0.71 (0.24-0.82) K/uL Eos # (Auto) 0.37 (0-0.50) K/uL Baso # (Auto) 0.03 (0-0.2) K/uL Immature Gran # (Auto) 0.03 H (0.00-0.02) K/uL Sodium 140 (136-145) mmol/L Potassium 3.9 (3.5-5.1) mmol/L Chloride 104 (98-107) mmol/L Carbon Dioxide 28 (21-32) mmol/L Anion Gap 8 (3-11) BUN 24 H (6-23) mg/dl Creatinine 0.86 (0.6-1.2) mg/dl Est Cr Clr Drug Dosing 66.8 ml/min Est GFR ( Amer) 81.6 ml/min Est GFR (Non-Af Amer) 70.4 ml/min POC Glucose (70-99) mg/dl Fasting Glucose 115 H (70-99) mg/dl Calcium 8.6 (8.5-10.1) mg/dl Phosphorus 4.8 (2.5-4.9) mg/dl Magnesium 1.8 (1.7-2.4) mg/dl Iron 59 (35-150) mcg/dl TIBC 264 (250-450) mcg/dl Unsaturated IBC 205 (155-355) mcg/dl Transferrin % Sat 22 (15-50) % Ferritin 252.2 (8-388) ng/ml Total Bilirubin 0.5 (0.2-1.0) mg/dl AST 16 (13-39) U/L ALT 11 (7-52) U/L Alkaline Phosphatase 84 (34-104) U/L Total Protein 6.1 (6.0-8.3) gm/dl Albumin 3.2 L (3.4-5.0) gm/dl Globulin 2.9 (2.5-4.0) gm/dl Albumin/Globulin Ratio 1.1 (0.9-2) Vitamin B12 (180-914) pg/ml 25-OH Vitamin D Total (30-100) ng/ml Folate 8.56 (>5.38) ng/ml 01/26/22 01/26/22 01/26/22 Range/Units 20:41 16:55 12:04 WBC (4.8-10.8) K/ul RBC (3.93-5.22) M/uL Hgb (12.0-16.0) g/dl Hct (34.1-44.9) % MCV (80.0-100.0) fL MCH (25.0-34.0) pg MCHC (32.0-36.0) g/dL RDW Std Deviation (36.4-46.3) fL RDW Coeff of Ralf (11.5-14.5) % Plt Count (130-400) K/uL MPV (9.4-12.3) fL Immature Gran % (Auto) % Neut % (Auto) % Lymph % (Auto) % Upson % (Auto) % Eos % (Auto) % Baso % (Auto) % Neut # (Auto) (1.4-6.5) K/uL Lymph # (Auto) (1.2-3.4) K/uL Upson # (Auto) (0.24-0.82) K/uL Eos # (Auto) (0-0.50) K/uL Baso # (Auto) (0-0.2) K/uL Immature Gran # (Auto) (0.00-0.02) K/uL Sodium (136-145) mmol/L Potassium (3.5-5.1) mmol/L Chloride (98-107) mmol/L Carbon Dioxide (21-32) mmol/L Anion Gap (3-11) BUN (6-23) mg/dl Creatinine (0.6-1.2) mg/dl Est Cr Clr Drug Dosing ml/min Est GFR ( Amer) ml/min Est GFR (Non-Af Amer) ml/min POC Glucose 110 H 172 H 192 H (70-99) mg/dl Fasting Glucose (70-99) mg/dl Calcium (8.5-10.1) mg/dl Phosphorus (2.5-4.9) mg/dl Magnesium (1.7-2.4) mg/dl Iron (35-150) mcg/dl TIBC (250-450) mcg/dl Unsaturated IBC (155-355) mcg/dl Transferrin % Sat (15-50) % Ferritin (8-388) ng/ml Total Bilirubin (0.2-1.0) mg/dl AST (13-39) U/L ALT (7-52) U/L Alkaline Phosphatase (34-104) U/L Total Protein (6.0-8.3) gm/dl Albumin (3.4-5.0) gm/dl Globulin (2.5-4.0) gm/dl Albumin/Globulin Ratio (0.9-2) Vitamin B12 (180-914) pg/ml 25-OH Vitamin D Total (30-100) ng/ml Folate (>5.38) ng/ml 01/26/22 01/26/22 01/26/22 Range/Units 08:06 05:27 05:27 WBC (4.8-10.8) K/ul RBC (3.93-5.22) M/uL Hgb (12.0-16.0) g/dl Hct (34.1-44.9) % MCV (80.0-100.0) fL MCH (25.0-34.0) pg MCHC (32.0-36.0) g/dL RDW Std Deviation (36.4-46.3) fL RDW Coeff of Ralf (11.5-14.5) % Plt Count (130-400) K/uL MPV (9.4-12.3) fL Immature Gran % (Auto) % Neut % (Auto) % Lymph % (Auto) % Upson % (Auto) % Eos % (Auto) % Baso % (Auto) % Neut # (Auto) (1.4-6.5) K/uL Lymph # (Auto) (1.2-3.4) K/uL Upson # (Auto) (0.24-0.82) K/uL Eos # (Auto) (0-0.50) K/uL Baso # (Auto) (0-0.2) K/uL Immature Gran # (Auto) (0.00-0.02) K/uL Sodium (136-145) mmol/L Potassium (3.5-5.1) mmol/L Chloride (98-107) mmol/L Carbon Dioxide (21-32) mmol/L Anion Gap (3-11) BUN (6-23) mg/dl Creatinine (0.6-1.2) mg/dl Est Cr Clr Drug Dosing ml/min Est GFR ( Amer) ml/min Est GFR (Non-Af Amer) ml/min POC Glucose 166 H (70-99) mg/dl Fasting Glucose (70-99) mg/dl Calcium (8.5-10.1) mg/dl Phosphorus (2.5-4.9) mg/dl Magnesium (1.7-2.4) mg/dl Iron (35-150) mcg/dl TIBC (250-450) mcg/dl Unsaturated IBC (155-355) mcg/dl Transferrin % Sat (15-50) % Ferritin (8-388) ng/ml Total Bilirubin (0.2-1.0) mg/dl AST (13-39) U/L ALT (7-52) U/L Alkaline Phosphatase (34-104) U/L Total Protein (6.0-8.3) gm/dl Albumin (3.4-5.0) gm/dl Globulin (2.5-4.0) gm/dl Albumin/Globulin Ratio (0.9-2) Vitamin B12 93 L (180-914) pg/ml 25-OH Vitamin D Total 13.0 L (30-100) ng/ml Folate (>5.38) ng/ml PG Care Time/CCT Total # of Minutes Spent Total Time Spent with Patient: Total time spent is greater than 50% in coordination of care (as documented) at patient's floor/unit and/or counseling patient: Coding Level of Care Code 85256 Subseq Hosp Care Lvl 3 Diagnoses Tibial plateau fracture, right S82.141A Chronic respiratory failure with hypoxia J96.11 Obstructive sleep apnea G47.33 Pulmonary hypertension I27.20 HTN (hypertension) I10 DMII (diabetes mellitus, type 2) E11.9 Asthma J45.909 Vitamin D deficiency E55.9 B12 deficiency E53.8
[2022-01-27] MEDS ORDERED: FUROSEMIDE 20 MG TAB PO ONE (08:01)
[2022-01-27] MEDS ORDERED: SOD PHOSPHATE/SOD BIPHOSPHATE ENEMA 132 ML BTL PR STA (08:32)
[2022-01-27] MEDS: DOCUSATE SODIUM 100 MG CAP PO SCH ×2 (08:37→20:35)
[2022-01-27] MEDS: SILDENAFIL CITRATE 20 MG TABLET PO SCH ×3 (08:37→20:39)
[2022-01-27] MEDS: DOCUSATE SODIUM/SENNA 50/8.6MG TAB PO SCH (08:38)
[2022-01-27] MEDS: POLYETHYLENE (MIRALAX) 17 GM PACK PO SCH ×2 (08:38→20:36)
[2022-01-27] MEDS: CETIRIZINE HCL 10 MG TABLET PO SCH (08:40)
[2022-01-27] MEDS: METOPROLOL SUCC 25MG EXT REL TAB PO SCH ×3 (08:40→20:36)
[2022-01-27] MEDS: CYANOCOBALAMIN 1000 MCG/ML VIAL IM SCH (08:53)
[2022-01-27] MEDS: FUROSEMIDE 20 MG TAB PO SCH (08:53)
[2022-01-27] MEDS: ASPIRIN 325 MG ECTAB PO SCH ×2 (08:53→20:35)
[2022-01-27] MEDS: LANTUS PER UNIT CHARGE SQ SCH ×2 (09:00→20:53)
[2022-01-27] MEDS: INSULIN ASPART PER UNIT SC SCH ×4 (09:00→20:53)
[2022-01-27] MEDS: oxyCODONE HCL IR 5 MG TAB (IMMEDIATE RELEASE) PO PRN (14:35)
[2022-01-27] MEDS ORDERED: MINERAL OIL ENEMA 133 ML BTL PR PRN (16:02)
[2022-01-27] MEDS ORDERED: POLYETHYLENE (MIRALAX) 17 GM PACK PO ONE (16:45)
[2022-01-27] MEDS: MICONAZOLE NITRATE-7 (100 MG EA SUPP) BOX PV SCH (20:39)
[2022-01-28] MEDS: ACETAMINOPHEN 500 MG TAB PO SCH ×2 (01:52→08:43)
[2022-01-28 06:23] LABS: Basophils # (auto) 0.04 K/uL (0-0.2); Basophils % (auto) 0.4 %; Eosinophils # (auto) 0.32 K/uL (0-0.50); Eosinophils % (auto) 3.4 %; Hematocrit (blood only) 38.9 % (34.1-44.9); Hemoglobin 12.4 g/dl (12.0-16.0); Immature Granulocytes # (auto) 0.02 K/uL (0.00-0.02); Immature Granulocytes % (auto) 0.2 %; Lymphocytes # (auto) 3.22 K/uL (1.2-3.4); Lymphocytes % (auto) 34.3 %; Mean Corpuscular Hemoglobin 29.2 pg (25.0-34.0); Mean Corpuscular Hgb Conc 31.9 g/dL (32.0-36.0); Mean Corpuscular Volume 91.5 fL (80.0-100.0); Mean Platelet Volume 9.9 fL (9.4-12.3); Monocytes % (auto) 7.5 %; Neutrophils # (auto) 5.09 K/uL (1.4-6.5); Neutrophils % (auto) 54.2 %; Platelet Count 356 K/uL (130-400); RDW Coefficient of Variation 14.2 % (11.5-14.5); RDW Standard Deviation 47.9 fL (36.4-46.3); Red Blood Count 4.25 M/uL (3.93-5.22); White Blood Count 9.39 K/ul (4.8-10.8)
[2022-01-28 06:48] LABS: Albumin Globulin Ratio 1.3 (0.9-2); Albumin Level 3.4 gm/dl (3.4-5.0); Bilirubin,Total 0.6 mg/dl (0.2-1.0); Calcium 8.5 mg/dl (8.5-10.1); Creatinine Clr Calc Pharmacy 72.7 ml/min; Est GFR (African American) 90.4 ml/min; Globulin 2.7 gm/dl (2.5-4.0); Magnesium 1.8 mg/dl (1.7-2.4); Phosphorus 4.2 mg/dl (2.5-4.9); Total Protein 6.1 gm/dl (6.0-8.3)
--- NOTE | 2022-01-28 07:49 | Discharge Summary ---
Date of Service January 28, 2022 Admission HPI Per Admitting Provider Zaira He is a 66-year-old female with a past medical history of ARDS, asthma, CHF, chronic respiratory failure with hypoxia, DM, dysphagia, GERD, PARRIS, pulmonary hypertension who sustained a fall to a wet floor with immediate right knee and esparza pain, and inability to ambulate following. Zaira was reportedly cleaning up after her dog when she slipped in a puddle of urine causing her to fall to her right knee with immediate knee/esparza pain and inability to ambulate. No syncope/presyncope/shortness of breath/chest pain/chest pressure/lightheadedness/dizziness that caused the fall, mechanical in nature. No nausea/vomiting/diarrhea/constipation before admission, does have nausea and some slight itching after narcotic pain control was given + Knee +nausea since receiving narcotics, no nausea prior to this no diarrheano abdominal pain Does have pulmonary hypertension and fibrosis, gradually improving. Uses 1 L of oxygen at night and as needed during the day, no change in her oxygen requirements recently. Saw pulmonology yesterday and feels she is actually gradually improving. Does have pulmonary hypertension for which she is waiting to be set up with a CPAP machine and has not started this yet. 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 Repeat echo after she is able to receive this and compliant. Last echo in July with preserved ejection fraction. Does use Lasix as needed for leg swelling, reports she has not had increased leg swelling prior to her fall Medical History: Reviewed Medications: Reviewed Surgical History: Reviewed Allergies: Reviewed Social History: No tobacco or alcohol use. Code Status:[phone] Victor Manuel He would be surrogate. Full [place] per pt. Admission Exam Per Admitting Provider General: A&Ox3. NAD. Cooperative. HEENT: Atraumatic, normocephalic. Vision/hearing grossly intact Pulm: Diminished,. -wheezes, -rales, -rhonchi. Symmetrical chest rise. No increase in work of breathing. No respiratory distress. On 1 L nasal cannula Cardiac: RRR, -mrg. Radial pulses intact and symmetrical. Abdominal: Nontender, nondistended, soft. BS present. Extremities: Right knee with swelling/effusion, focally tender at medial joint line with some radiating tenderness laterally. Mild tenderness to palpation at dorsum of the foot without crepitus. PT pulse intact bilaterally. Sensation of soft touch intact in feet bilaterally without asymmetry. Ankle dorsif lexion/plantarflexion and toe flexion/extension intact bilaterally. Principal Diagnosis Tibial Plateau fracture and medial femoral condyle Discharge Exam General: WD/WN obese female sitting up in bed, NAD HEENT: head normocephalic, atraumatic, mmm, trachea midline without deviation Resp: no cough, no tachypnea, diminished in the bases with less associated crackles, no wheezing on room air at rest currently CV: regular rate/rhythm, +less harsh SYSTOLIC MURMUR 2-3/6, no rub/gallop, trace pitting LE edema (improving and almost at baseline), calves non-tender GI:+BS, less distended, nontender : no frausto MSK/Neuro: punctate lesion superior aspect of knee, full ROM R ankle/foot, hinged brace to R knee, strength 4/5 R compared to the left, pulses palpable, cap refill wnl. slightly diminished sensation to light touch b/l LE, ankle flexion intact bilaterally Psych: AOx3, pleasant and cooperative Skin: warm, dry Discharge Data Allergies Allergy/AdvReac Type Severity Reaction Status Date / Time No Known Allergies Allergy Unknown Verified 01/14/22 10:03 Consultations 01/22/22 13:55 ED Decision to Admit Stat 01/22/22 14:36 Consult Orthopedic Surgery Routine Ordered Studies Knee X-Ray 01/22/22 10:17 XR knee RT 3V, XR tibia fibula RT 2V CLINICAL HISTORY: fall, knee pain. Right lower leg pain. COMPARISON STUDY: None. FINDINGS: There is a moderate lipohemarthrosis. There is nondisplaced vertical fracture at the medial tibial plateau which extends to the articular surface. Anterior soft tissue swelling within the knee. No radiopaque foreign bodies. Patchy areas of sclerosis within the medial tibial plateau and femoral condyles likely represent avascular necrosis. No evidence for articular collapse. The distal tibia and fibula are intact. There is a plantar heel spur. IMPRESSION: 1. Nondisplaced medial tibial plateau fracture. 2. Moderate lipohemarthrosis. 3. The distal tibia and fibula are intact. 4. Patchy sclerosis within the medial tibial plateau and femoral condyles likely represents avascular necrosis. ACT 112: Negative or not required by law. Electronically signed by: Caden Dietrich M.D. 01/22/2022 11:21 AM Tibia/Fibula X-Ray 01/22/22 10:17 XR knee RT 3V, XR tibia fibula RT 2V CLINICAL HISTORY: fall, knee pain. Right lower leg pain. COMPARISON STUDY: None. FINDINGS: There is a moderate lipohemarthrosis. There is nondisplaced vertical fracture at the medial tibial plateau which extends to the articular surface. Anterior soft tissue swelling within the knee. No radiopaque foreign bodies. Patchy areas of sclerosis within the medial tibial plateau and femoral condyles likely represent avascular necrosis. No evidence for articular collapse. The distal tibia and fibula are intact. There is a plantar heel spur. IMPRESSION: 1. Nondisplaced medial tibial plateau fracture. 2. Moderate lipohemarthrosis. 3. The distal tibia and fibula are intact. 4. Patchy sclerosis within the medial tibial plateau and femoral condyles likely represents avascular necrosis. ACT 112: Negative or not required by law. Electronically signed by: Caden Dietrich M.D. 01/22/2022 11:[address] 01/22/22 11:40 CT knee RT wo con HISTORY: 66 years-old Female right knee trauma acute right-sided knee pain COMPARISON: Right knee radiographs of same day TECHNIQUE: Multiple axial CT images of the right knee were obtained without the use of IV contrast. Additional 3-D rendering images were generated from a separate workstation. A dose lowering technique was used consistent with the principals of ALARA. FINDINGS: There is a moderate sized lipohemarthrosis of the knee. Mild nonspecific anterior subcutaneous edema. The musculature is within normal limits. Mild arterial calcifications. 3 mm cortical depression without displacement involving the medial tibial plateau likely represents an acute nondisplaced fracture. There is an acute minimally comminuted fractures involving the medial cortex of the medial femoral condyle (image 61 series 2). Fracture fragments are displaced medially approximately 3 mm. The patella and proximal fibula appear intact. Bone infarct of the proximal tibial metaphysis is noted medially with additional bone infarcts/avascular necrosis present within the medial and lateral femoral condyles. No resultant articular collapse. Demineralized appearance of the bones. Ligaments and tendons are not well evaluated by CT technique. Dystrophic suprapatellar calcifications are noted within the distal quadriceps. Minimal tricompartmental osteoarthritis. No additional acute fracture IMPRESSION: 1. Acute minimally comminuted and slightly displaced fracture involves the medial cortex of the medial femoral condyle. 2. 3 mm cortical depression of the medial plateau is suggestive of an additional acute fracture. 3. Moderate sized lipohemarthrosis. 4. Bone infarcts/avascular necrosis of the knee. ACT 112: Negative or not required by law. The above report was generated using voice recognition software. It may contain grammatical, syntax or spelling errors. Electronically signed by: Jessee Llamas M.D. 01/22/2022 1:03 PM Diabetes Follow up Diabetes Follow-up Needed for HgbA1c >9% Hospital Course (1) Tibial plateau fracture, right: Mechanical fall after cleaning up dog urine at home and fell on her right knee Imaging with CT scan: * 1. Acute minimally comminuted and slightly displaced fracture involves the medial cortex of the medial femoral condyle. * 2. 3 mm cortical depression of the medial plateau is suggestive of an additional acute fracture. Orthopedics consulted Conservative management with hinged brace (I placed consult for orthotics 01/25 as she had not received yet), NWB with crutches/walker/WC assistance Outpatient followup in 2 weeks Pain control/antiemetics provided prn and pain control with tylenol/oxycodone sent at discharge. To continue bowel regimen +BM x 2 01/27 Lovenox SQ for DVT prevention initially and switched to ASA 325mg BID Checked Vit D level in AM as well as B12 due to fracture as well as possible underlying neuropathy BOTH LOW -- Vit D 13, B12 93 and replacement ordered as outlined below PT/OT consulted -- rec rehab and completed P2P denied acute inpatient but approved for [facility] and transportation arranged (2) Chronic respiratory failure with hypoxia: Post COVID, history of ARDS appears at baseline however still on 2L with drop to 70s w/ ambulation two days ago and stated uses 1L at night, working on getting CPAP outpatient Does have murmur on exam and suspect underlying CHF, states is known murmur and follows with cards/pulm and to have repeat ECHO after CPAP arranged as outpatient. Most recent ECHO w/o valvular issue.?also outflow tract given volume overload earlier in the week 1L at night and prn during the day Given double doses of lasix x 3 days with improvement in breathing and swelling and suspect almost back to baseline and would recommend 40mg for tomorrow and then resume 20mg daily following given improvement in creatinine with additional dosing and less congestion and "allergy symptoms" of cough 96% on RA at rest this morning, 1L as needed with ambulation. Continued follow up with pulmonaryand CPAP being worked on outpatient (3) Obstructive sleep apnea: CPAP qHS. Patient poorly tolerant to masks, has been able to tolerate nasal pillow if available Nasal pillows to have been attempted but appears was on 1L overnight Continue outpt f/u for CPAP arrangements given severe sleep apnea on recent polysom last month (4) Pulmonary hypertension: Continued home therapy sildenafil; routine pulmonary follow-up already in place Additional lasix as above and resume usual on 01/30 CPAP outpatient (5) HTN (hypertension): Remains on metoprolol succinate 12.5mg TID, furosemide 20mg daily (with exception for lasix as above) (6) DMII (diabetes mellitus, type 2): Sugars trending high; pharmacy glycemic consult; poor long-term [id number] 11.1 BSGs acceptable but slightly higher, tightened novolog parameters yesterday per pharmacy monitor/outpatient follow up 01/27--> tightened further last evening with improvement Outpatient meds resumed, educated on importance DM educator seen while inaptient, dietary indescretions and elevated stress (home environment) and avoid regular sodas Arranged outpt endo in follow up as well (7) Asthma: No evidence of exacerbation; DuoNeb as needed lasix for volume overload as above also arranged for GI f/u given complaints of dysphagia to pulm in office visit. Speech cleared (has daughter w/ issues and well aware of modifications for herself) while inpatient (8) Vitamin D deficiency: low at 13, checked given fall/fracture ergocalciferol 50,000 weekly x 8 weeks --> continue at d/c and rx sent and outpatient follow up w/ pcp for repeat testing (9) B12 deficiency: checked due to neuropathy and reported brain fog after covid which was reportedly doing better. Denied balance issues as contributing to falls B12 LOW at 93, IM injections while inpatient and then transitioned to PO at discharge Iron/folate studies without deficiency Plan discharged to [facility] for rehab Total Time Total Time Spent Total Time Spent (In Minutes): 60 Discharge Plan Discharge Items Patient Disposition: Transfer [facility] Reason For Visit: KNEE FXR, PAIN CONTROL Discharge Diagnosis: Knee Fracture Goals: You have been hospitalized for an acute medical problem. During your stay at [facility], we have made an effort to correct the problem that brought you to the hospital while keeping you as comfortable as possible. Medications were used to bring your condition under control and your discharge instructions will include directions for any medications you should take after leaving the hospital. Please make sure you see your Primary Care Provider as part of your follow up plan. Activity: As commented below Activity Comment: NON WEIGHT BEARING with crutches/walker/wheelchair Non-emergency contact: Primary Care Provider, Surgeon and Burnishing Machine Operator Call non-emergency contact if: you have any medication questions, your symptoms worsen, your pain is not controlled and you have a fever Follow-up/Referrals: Demetrio Bravo [Outside Practitioners] - (1 week) Obie Brunner MD [Physician] - (February 09) Willian Chauhan PA-C [Physician Consultant In Ergonomics And Safety] - 02/23/22 3:00 pm [facility], dysphagia) PCP,NO [Primary Care Provider] - Diet: Heart Healthy Diet Comment: slippery Addtl Attending Provider Instructions: You have been hosptitalized for fracture in your right knee. Orthopedics evaluated you and felt this was non-operative and recommended a hinge-brace to be work and removed for hygiene purposes and for PT. You should continue to ice 20 minutes 5 times a day and can continue pain control and elevation. You will have follow up with Dr Brunner from orthopedics on 02/09. You will continue aspirin 325mg by mouth twice daily to prevent blood clots. You were also given B12 injections while in the hospital after discussing brain fog post-covid. this level was low and you should continue oral supplementation. I also checked a vitamin D level and this was low and you will continue supplementation once weekly with 50,000 units ergocalciferol for 8 weeks then have repeat labs with your PCP to determine maintanence dosing. You will continue lasix at discharge but recommend double dose 40mg for the next day as well and then resume 20mg daily. You will need to follow up on CPAP outpatient given recent sleep study and continued use is encouraged. You will need to continue to monitor your blood sugars at rehab and may be a good idea to discuss referral to endocrinology at your office visit with your PCP. You have also been set up with follow up with gastroenterology as previously described dysphagia and have been evaluated by speech in the hospital and they recommend continue slippery diet in the meantime. Pending Studies at Discharge: No Stand-Alone Forms: My [facility] Skilled Items Patient informed of condition?: Yes DNR: No Discharge Level of Care: Skilled Communicable Disease: No Discharge Prognosis: Stable Lines: None Urinary Catheter: No Medications and DC Order Prescriptions: New acetaminophen [Tylenol Extra Strength] 500 mg Tablet 1,000 mg PO Q8H Qty: 30 0RF aspirin [Ecotrin] 325 mg Tablet,Delayed Release (Dr/Ec) 325 mg PO BID 42 Days Qty: 84 0RF oxycodone 5 mg Tablet 5 mg PO Q4 PRN (Reason: pain) Qty: 20 0RF furosemide 40 mg Tablet 40 mg PO QAM Qty: 1 0RF polyethylene glycol 3350 [Miralax] 17 gram Powder In Packet 17 g PO TID Qty: 30 0RF mineral oil [Fleet Mineral Oil] Enema 133 ml WA DAILY PRN (Reason: constipation) Qty: 1 0RF docusate sodium 100 mg Capsule 100 mg PO BID Qty: 30 0RF ergocalciferol (vitamin D2) 1,250 mcg (50,000 unit) Capsule 50,000 unit PO Q7D@0900 Qty: 7 0RF cyanocobalamin (vitamin B-12) 1,000 mcg capsule 1,000 mcg PO DAILY Qty: 30 0RF Continued (DME) nebulizer accessories Misc See Rx Instructions .Route Qty: 1 0RF Rx Instructions: As directed (DME) nebulizer and compressor Device See Rx Instructions .ROUTE .MEDSUPPLY Qty: 1 0RF Rx Instructions: As directed (DME) CPAP Machine Misc See Rx Instructions .Route Qty: 1 0RF Rx Instructions: 5 cm h20, c-flex of 2, 1L of o2 bled in (DME) CPAP Supplies Misc See Rx Instructions .ROUTE .MEDSUPPLY Qty: 1 0RF Rx Instructions: CPAP supplies furosemide [Lasix] 20 mg tablet 20 mg PO DAILY Qty: 30 2RF albuterol sulfate 90 mcg/actuation HFA aerosol inhaler 2 inh inhalation QID PRN (Reason: shortness of breath or wheezing) Qty: 8.5 3RF Novolin 70-30 FlexPen U-100 100 unit/mL (70-30) insulin pen 30 unit subcut DAILY Qty: 15 0RF Rx Instructions: Take 30 units S.C. 30 minutes before breakfast daily. Substitute "[employer]". Novolin 70-30 FlexPen U-100 100 unit/mL (70-30) insulin pen 15 unit subcut QPM Qty: 9 0RF Rx Instructions: take 15 units 30 minutes before dinner daily. Substitute "[employer]". sennosides-docusate sodium [Senokot-S] 8.6-50 mg Tablet 1 tab PO QAM Qty: 0 0RF metoprolol succinate 25 mg Tablet Extended Release 24 Hr 12.5 mg PO TID Qty: 0 0RF levalbuterol HCl 1.25 mg/3 mL Solution For Nebulization 1.25 mg NEB Q4H PRNQty: 0 0RF sildenafil (pulm.hypertension) [Revatio] 20 mg Tablet 20 mg PO TID Qty: 0 0RF Discharge Orders: Discharge Order (Routine); Ordered 01/28/22 Ordered By: Janett Davalos/Other Patient Handouts: Managing Type 2 Diabetes Admission Data Admit Date/Time: 01/25/22 09:16 Attending Provider: Tracy Noriega Admit Provider: Obie Malone Primary Care Provider: PCP,NO Other Providers: Obie Malone ; Obie Brunner ; [facility] Other Interventions: Discharge Summary Assessment (RN) Last Done: 01/28/22 10:42 Supervising Physician Co-Signing Physician Notes PA Supervision Note: I did not personally see or examine the patient today, but I verified all robin points of TYSON Johnson's assessment and plan with the following exceptions/additions: None Coding Level of Care Code D/C DAY MANAGEMENT >30 MINS Diagnoses Tibial plateau fracture, right S82.141A Chronic respiratory failure with hypoxia J96.11 Obstructive sleep apnea G47.33 Pulmonary hypertension I27.20 HTN (hypertension) I10 DMII (diabetes mellitus, type 2) E11.9 Asthma J45.909 Vitamin D deficiency E55.9 B12 deficiency E53.8
[2022-01-28] MEDS: POLYETHYLENE (MIRALAX) 17 GM PACK PO SCH (08:41)
[2022-01-28] MEDS: SILDENAFIL CITRATE 20 MG TABLET PO SCH (08:41)
[2022-01-28] MEDS: DOCUSATE SODIUM/SENNA 50/8.6MG TAB PO SCH (08:42)
[2022-01-28] MEDS: METOPROLOL SUCC 25MG EXT REL TAB PO SCH (08:42)
[2022-01-28] MEDS: ASPIRIN 325 MG ECTAB PO SCH (08:43)
[2022-01-28] MEDS: CETIRIZINE HCL 10 MG TABLET PO SCH (08:43)
[2022-01-28] MEDS ORDERED: FUROSEMIDE 40 MG TAB PO SCH (09:00)
[2022-01-28] MEDS: DOCUSATE SODIUM 100 MG CAP PO SCH (09:33)
[2022-01-28] MEDS: CYANOCOBALAMIN 1000 MCG/ML VIAL IM SCH (09:34)
[2022-01-28] MEDS: INSULIN ASPART PER UNIT SC SCH (09:35)
[2022-01-28] MEDS: LANTUS PER UNIT CHARGE SQ SCH (09:36)
== END 2022-01-28 11:29 | DRG 563 ==
LOC: ED 10:08 → 3E 10:08 → SUATTDRO 14:26 → 3E 15:53 → SUATTDRO 01-25 09:16

== ENCOUNTER 2024-10-15 12:14 | Inpatient (IN) ==
--- NOTE | 2024-10-15 13:35 | XRay Report ---
XR chest 1V portable CLINICAL HISTORY: Chest pain, nonspecific COMPARISON STUDY: Chest CT January 07, 2022. Chest radiograph August 04, 2022. FINDINGS: Right internal jugular [id number] is unchanged in position. Intracanalicular electrodes are partially imaged. There is no pneumothorax or pleural effusion. Cardiomegaly is unchanged. No con solidation is present. Interstitial thickening is similar to prior exam. IMPRESSION: 1. No acute cardiopulmonary findings. 2. Chronic interstitial lung disease. ACT 112: Negative or not required by law. Electronically signed by: Dave Franz M.D. 10/15/2024 1:34 PM
--- NOTE | 2024-10-15 14:01 | Emergency Department Note ---
Impression & Plan Acute exacerbation of chronic obstructive pulmonary disease ED Provider Note CHIEF COMPLAINT: COPD exacerbation HISTORY OF PRESENTING ILLNESS: Patient is a 68-year-old female who presents to the emergency department today for evaluation of breathing difficulty. She states she has a history of COPD and believes she is having an exacerbation. She states that she had to apply her as needed at home oxygen on Tuesday due to the shortness of breath. Over the weekend at the breathing difficulty had gotten worse and today she decided she better be seen. She has been wearing oxygen at 3 L by nasal cannula and SpO2 in the low 90s. She does also have a history of congestive heart failure, hypertension and she is a diabetic. He denies chest pain, sob, breathing difficulties, abdominal pain, headache, fevers/chills, blood in stool or urine, any recent illness, or any recent travel. REVIEW OF SYSTEMS: See HPI for pertinent positives and pertinent negatives. ALLERGIES: No known allergies MEDICATIONS: See list below PAST MEDICAL HISTORY: COPD, CHF, diabetes, hypertension PHYSICAL EXAM: VITALS: Vitals are noted on the nurse's note and reviewed by myself. GENERAL: Non toxic, in no acute distress, non-diaphoretic. SKIN: Capillary refill <2 sec. EYES: PERRLA. EOMI. Conjunctivae without injection, sclerae without icterus. NOSE: Patent without discharge. MOUTH: Mucous membranes moist. Uvula midline. Airway patent. NECK: Supple without nuchal rigidity. HEART: Regular rate and rhythm without murmurs gallops or rubs. LUNGS: Clear to auscultation bilaterally with wheezing in the upper bilateral bases. Her lungs sounds are tight. No retractions or accessory muscle use. ABDOMEN: Positive bowel sounds x 4. Normal tympanic percussion. Soft, nontender to palpation. No masses or hepatosplenomegaly. Muller sign negative. No CVA tenderness. No guarding, rigidity, or rebound tenderness. No focal RLQ or LLQ tenderness. MUSCULOSKELETAL: No gross musculoskeletal defects. NEURO: Patient was alert and oriented. No focal neurological deficits. DIFFERENTIAL DIAGNOSIS: Differential diagnosis includes acute coronary syndrome, pulmonary embolism, pneumothorax, pericarditis, myocarditis, endocarditis, anxiety, musculoskeletal pain, GERD, costochondritis, pneumonia, among others. ED COURSE AND MEDICAL DECISION MAKING: HISTORY FROM INDEPENDENT HISTORIAN: History was provided by the patient and her who is at bedside. I examined the patient for complaints of breathing difficulty. A physical exam and history were performed. Nursing notes, EMR, and medication list were personally reviewed. MEDICATIONS GIVEN: An IV lock was placed. The patient was given a DuoNeb, Mucinex, an hour-long DuoNeb and had improvement with breathing until she needed to get up out of the bed. Prior to admission to the hospital the patient requested Tylenol for headache. She was given 1 g of Tylenol IV with improvement to her pain. MONITOR: Continuous ekg monitor: Order was placed for continuous ekg monitor. Patient was placed on the ekg monitor and continuous pulse ox. Patient was noted to be in normal sinus rhythm at an initial rate of 88 bpm per my interpretation. EKG: EKG was interpreted by myself as normal sinus rhythm. INTERPRETATION OF LABS: An IV lock was placed and labs were drawn. I interpreted the labs with full lab results as below in the lab section of this note. Laboratory results pertinent to the emergent complaint are discussed in the MDM section below. The patient was advised to follow up with their PCP and/or specialist(s) for further outpatient monitoring and management of any abnormal results. There was no leukocytosis, anemia, thrombocytopenia. The patient's troponin was 6.6, BNP was 81. Viral swab for COVID, influenza AMB, RSV was all negative. INTERPRETATION OF IMAGING: Imaging studies were interpreted by myself and read by radiology as per the imaging section of this note. The patient was advised to follow up with their PCP and/or specialist(s) for further outpatient management of any non-emergent abnormal findings. The chest x-ray was negative for acute findings. EXTERNAL RECORDS REVIEWED: I personally reviewed the patient's respiratory visits and previous emergency department visits. CHRONIC MEDICAL/SOCIAL CONDITIONS AFFECTING CARE: No social concerns were identified as barriers to patients care. ESCALATION OF CARE CONSIDERED: I considered admission on this patient and spoke with Dr. Crawley who accepted the patient for admission. CONSULTATIONS: I had a meaningful discussion about this patient with Dr. Miller who agrees with my assessment and the treatment plan. I also spoke with Dr. Crawley for admission for this patient. SUMMARY: I evaluated the patient for complaints of breathing difficulty with known COPD. The patient's labs showed no leukocytosis, anemia, thrombocytopenia. The patient's troponin was 6.6. The BNP was 81. Viral swab was negative for COVID, influenza, and RSV. The patient was given a DuoNeb and Solu-Medrol 125 mg IV and had some improvement. She got up to go to the bathroom an hour and a half later and began having breathing difficulty again and desatting in the low 80s. The patient was then given an hour-long DuoNeb and a bedside toilet for her room. I discussed with the patient the likelihood of needing admitted due to her oxygen dropping. She did not want to stay in the hospital but she did agree since she is struggling to breathe. I spoke with Dr. Crawley who accepts the patient for admission. DIAGNOSIS: COPD exacerbation TREATMENT PLAN/DISCHARGE INSTRUCTIONS: Admit to the hospitalist service Past Med/Surg History Problem List (Updated 10/15/24 @ 20:55 by INO Garsia) Acute exacerbation of chronic obstructive pulmonary disease (Acute) COPD (chronic obstructive pulmonary disease) with acute bronchitis Encounter for pre-operative examination GERD (gastroesophageal reflux disease) Asthma Pulmonary hypertension HTN (hypertension) Obstructive sleep apnea Dysphagia Chronic respiratory failure with hypoxia Vitamin D deficiency Class 3 obesity Poorly controlled type 2 diabetes mellitus Proliferative diabetic retinopathy associated with type 2 diabetes mellitus Anxiety and depression Dyslipidemia Medical History Sleep apnea inconsistent use/toleration issues. Nausea and vomiting after administration of anesthetic agent Neuropathy legs/stimular for right side/doesn't work battery is . Diabetic retinopathy injections for / most recent 3 wks ago/upcoming Mar 18 2023. Chronic cough no change in baseline. Oxygen deficiency o2 2-3L prn. Last need of oxygen September 2022. baseline oxygen sat 88 %, recently been in the s. COPD (chronic obstructive pulmonary disease) denies recent flares. Asthma last use rescue inhler 1 wk or so ago. Denies recent flares. HTN (hypertension) Type 2 diabetes mellitus History of fracture of leg Right femoral condyle fracture 2021/no sx intervention as of current/knee replacement was advised. B12 deficiency hx History of COVID-19 Pneumonia with ARDS in 2020, 3 months hospitalization, shorter hospitalization in 2022. Surgical History History of cataract surgery right and left. History of bilateral breast reduction surgery History of surgery stimulator placement. History of x2 History of back surgery History of hysterectomy History of colonoscopy Family History Father Stroke Heart disease Cancer skin Mother Breast cancer Grandmother (Paternal) Breast cancer Social History Smoking Status: Former smoker Tobacco Type: Cigarettes Smoking End Date: 30 years ago; Second Hand Exposure: No; Do You Dip or Chew Tobacco: No; Tobacco Cessation Education Requested by Patient: No Hx Alcohol Use: Yes Alcohol type: beer Hx Substance Use: No Preferred Language: Telugu Communication Ability: Effective Extension Work Instructor Required: No Beliefs That Will Affect Care: None Current Living Situation: Spouse Current Living Situation Comment: daughter (handicap) Other Information That Helps Us Care for You: No Feels Safe at Home: Yes Safety Concerns: Feels Safe At This Time Assistive Devices: Glasses and Oxygen - Continuous Assistive Devices Comment: dog ate/broke glasses Allergies Allergies Allergy/AdvReac Type Severity Reaction Status Date / Time No Known Allergies Allergy Unknown Verified 03/09/23 09:54 Home Meds Home Medications Medication Instructions Recorded Confirmed levalbuterol HCl 1.25 mg/3 mL 1.25 mg NEB Q4H PRN asthma/copd 08/04/22 10/15/24 solution for nebulization arformoterol 15 mcg/2 mL solution 2 ml inhalation UD PRN asthma/copd 11/05/22 10/15/24 for nebulization (Brovana) fluticasone 250 mcg-salmeterol 50 1 inh inhalation UD PRN asthma/copd 11/05/22 10/15/24 mcg/dose blistr powdr for inhalation (Advair Diskus) furosemide 20 mg tablet (Lasix) 40 mg PO UD PRN Edema 11/05/22 10/15/24 albuterol sulfate 90 mcg/actuation 2 inh inhalation QID PRN 03/09/23 10/15/24 aerosol inhaler asthma/copd sildenafil (pulm.hypertension) 20 10 mg PO TID 03/09/23 10/15/24 mg tablet (Revatio) Previous Rx's Medication Instructions Recorded metoprolol succinate 25 mg 12.5 mg (1/2 x 25 mg) PO TID #0 04/22/21 tablet,extended release 24 hr tabs nebulizer accessories #1 ea 01/21/22 nebulizer and compressor #1 ea 01/21/22 CPAP Machine #1 ea 05/18/22 CPAP Supplies #1 ea 05/18/22 blood-glucose sensor (FreeStyle #2 ea 01/06/23 Ling 3 Sensor device) tramadol 50 mg tablet 50 mg PO Q4H PRN pain #15 tabs 06/01/23 Tresiba FlexTouch U-100 100 20 unit (0.2 mL) subcut HS #30 mL 07/11/23 unit/mL (3 mL) subcutaneous pen (insulin degludec) insulin aspart 10 unit subcut TIDM #30 mL 07/11/23 (niacinamide)(U-100) 100 unit/mL(3 mL) subcutaneous pen (Fiasp FlexTouch U-100 Insulin) Results & Data (ED) Vital Signs Vital Signs - 24 hr 10/15/24 12:19 10/15/24 12:35 10/15/24 13:27 Temperature 37 C Temperature Source Temporal Artery Scan Pulse Rate 86 Pulse Rate [Apical] 72 Respiratory Rate 24 28 H Respiratory Effort / Characteristics Non-Labored Spontaneous Short of Breath Respiratory Depth Normal Respiratory Pattern Blood Pressure 155/83 H Blood Pressure [Right Arm] 149/105 H Blood Pressure Mean 107 Blood Pressure Mean [Right Arm] 119 Pulse Oximetry 91 95 83 L Oxygen Delivery Method Room Air Room Air Room Air Oxygen Flow Rate 0 Sepsis Recent Fever Within 48 Hours No Sepsis New/Unexplained Change in Mental Status N/A Sepsis Action Taken by Nursing No Action Required Oxygen Flow Rate - Titration Pulse Oximetry Post Tiitration 10/15/24 13:27 10/15/24 13:27 10/15/24 13:49 Temperature Temperature Source Pulse Rate 90 Pulse Rate [Apical] Respiratory Rate Respiratory Effort / Characteristics Respiratory Depth Respiratory Pattern Blood Pressure Blood Pressure [Right Arm] Blood Pressure Mean Blood Pressure Mean [Right Arm] Pulse Oximetry 83 L 98 Oxygen Delivery Method Room Air Nasal Cannula Nasal Cannula Oxygen Flow Rate 0 2 Sepsis Recent Fever Within 48 Hours Sepsis New/Unexplained Change in Mental Status Sepsis Action Taken by Nursing Oxygen Flow Rate - Titration 2 Pulse Oximetry Post Tiitration 98 10/15/24 16:01 10/15/24 16:10 10/15/24 16:30 Temperature Temperature Source Pulse Rate 89 Pulse Rate [Apical] 81 84 Respiratory Rate 21 20 Respiratory Effort / Characteristics Spontaneous Short of Breath Non-Labored Spontaneous Respiratory Depth Normal Respiratory Pattern Regular Blood Pressure 142/88 H Blood Pressure [Right Arm] 148/96 H Blood Pressure Mean 106 Blood Pressure Mean [Right Arm] 113 Pulse Oximetry 97 97 Oxygen Delivery Method Nasal Cannula Nasal Cannula Oxygen Flow Rate 2 3 Sepsis Recent Fever Within 48 Hours Sepsis New/Unexplained Change in Mental Status Sepsis Action Taken by Nursing Oxygen Flow Rate - Titration Pulse Oximetry Post Tiitration Laboratory Data 10/15/24 13:48 10/15/24 13:48 Lab Results 10/15/24 Range/Units 13:48 WBC 9.32 (4.8-10.8) K/ul RBC 4.83 (4.20-5.40) M/uL Hgb 14.4 (12.0-16.0) g/dl Hct 43.3 (37.0-47.0) % MCV 89.6 (80.0-100.0) fL MCH 29.8 (25.0-34.0) pg MCHC 33.3 (32.0-36.0) g/dL RDW Std Deviation 44.5 (36.4-46.3) fL RDW Coeff of Ralf 13.6 (11.5-14.5) % Plt Count 310 (130-400) K/uL MPV 10.5 (9.4-12.4) fL Immature Gran % (Auto) 0.4 % Neut % (Auto) 61.3 % Lymph % (Auto) 27.7 % Hamilton % (Auto) 8.9 % Eos % (Auto) 1.3 % Baso % (Auto) 0.4 % Neut # (Auto) 5.71 (1.40-6.50) K/uL Lymph # (Auto) 2.58 (1.20-3.40) K/uL Hamilton # (Auto) 0.83 H (0.11-0.59) K/uL Eos # (Auto) 0.12 (0.00-0.50) K/uL Baso # (Auto) 0.04 (0.00-0.20) K/uL Immature Gran # (Auto) 0.04 (0.01-0.20) K/uL PT 10.4 (9.0-12.0) Seconds INR 1.0 (0.9-1.1) APTT 23 (21-31) Seconds PTT Ratio 0.9 Sodium 137 (136-145) mmol/L Potassium 4.1 (3.5-5.1) mmol/L Chloride 103 (98-107) mmol/L Carbon Dioxide 26 (21-32) mmol/L Anion Gap 8 (3-11) BUN 8 (6-23) mg/dl Creatinine 0.59 L (0.6-1.2) mg/dl Est Cr Clr Drug Dosing 93.5 ml/min eGFR 98.11 BUN/Creatinine Ratio 13.6 (10-20) Glucose 188 H (70-99(Fasting)) mg/dl Calcium 8.6 (8.6-10.3) mg/dl Magnesium 1.8 (1.7-2.4) mg/dl Total Bilirubin 1.2 H (0.2-1.0) mg/dl AST 17 (13-39) U/L ALT 9 (7-52) U/L Alkaline Phosphatase 104 (34-104) U/L Troponin I High Sens 6.6 (0-14) pg/ml B-Natriuretic Peptide 81 (0-100) pg/ml Total Protein 6.5 (6.0-8.3) gm/dl Albumin 3.7 (3.4-5.0) gm/dl Globulin 2.8 (2.5-4.0) gm/dl Albumin/Globulin Ratio 1.3 (0.9-2) Administered Medications Acetaminophen (Acetaminophen 325 Mg Tab) 650 mg PO Q4H PRN PRN Reason: pain/fever Stop: 11/14/24 16:47 Last Admin: 10/15/24 22:25 Dose: 650 mg Documented By: SYLVESTER Azithromycin (Azithromycin 250 Mg Tab) [facility] [place] Stop: 10/18/24 16:59 Last Admin: 10/15/24 17:27 Dose: 500 mg Documented By: DMH Budesonide (Budesonide 0.5 Mg/2 Ml Vial (Pulmicort)) 0.5 mg NEB BIDR [facility] Stop: 11/14/24 18:59 Last Admin: 10/15/24 20:14 Dose: 0.5 mg Documented By: LGB Formoterol Fumarate (Formoterol 20 Mcg/2 Ml Vial) 20 mcg NEB BIDR NELL Stop: 11/14/24 18:59 Last Admin: 10/15/24 20:14 Dose: 20 mcg Documented By: KEYON Guaifenesin/Dextromethorphan (Guaifenesin/Dextrom Syrup 100mg/10mg 5ml Udc) 5 ml PO Q6H PRN PRN Reason: Cough Stop: 11/14/24 17:09 Last Admin: 10/15/24 19:55 Dose: 5 ml Documented By: MARIE Heparin Sodium (Porcine) (Heparin Sod 5,000 Unit/0.5 Ml Vial) 5,000 units SQ Q8 NELL Stop: 11/14/24 21:59 Last Admin: 10/15/24 22:26 Dose: 5,000 units Documented By: SYLVESTER Insulin Aspart (Insulin Aspart Per Unit Charge) 0 units SC ACHS [facility] Stop: 11/14/24 17:14 Last Admin: 10/15/24 21:47 Dose: Not Given Documented By: Admin: 10/15/24 18:43 Dose: 10 units Documented By: MARIE Co-signed By: AMIE Insulin Glargine (Lantus Per Unit Charge) 20 units SQ HS NELL Stop: 11/14/24 20:59 Last Admin: 10/15/24 22:25 Dose: 20 units Documented By: SYLVESTER Co-signed By: MINDI Ipratropium [place] (Ipratropium [place] Neb Soln 0.02% 0.5mg/2.5ml Vial) 0.5 mg NEB Q6R [facility] Stop: 11/14/24 18:59 Last Admin: 10/16/24 00:09 Dose: 0.5 mg Documented By: Admin: 10/15/24 20:15 Dose: Not Given Documented By: KEYON Levalbuterol HCl (Levalbuterol 1.25 Mg/3 Ml Neb) 1.25 mg NEB Q6R NELL Stop: 11/15/24 00:59 Last Admin: 10/16/24 00:09 Dose: 1.25 mg Documented By: NAZIA Metoprolol Succinate (Metoprolol Succ 25mg Ext Rel Tab) 12.5 mg PO TID [facility] Stop: 11/14/24 20:59 Last Admin: 10/15/24 20:59 Dose: 12.5 mg Documented By: ANGELA Sildenafil Citrate (Sildenafil Citrate 20 Mg Tablet) 10 mg PO TID [facility] Stop: 11/14/24 20:59 Last Admin: 10/15/24 20:59 Dose: 10 mg Documented By: ANGELA Discontinued Medications Albuterol (Albut/Ipratrop 3mg/0.5mg Neb 3 Ml Vial) 3 ml INH NOW STA Stop: 10/15/24 13:47 Last Admin: 10/15/24 14:05 Dose: 3 ml Documented By: JOSE Albuterol (Albut/Ipratrop 3mg/0.5mg Neb 3 Ml Vial) 12 ml NEB ONE ONE; Protocol Stop: 10/15/24 15:33 Last Admin: 10/15/24 16:09 Dose: 12 ml Documented By: HEVER Alprazolam (Alprazolam 0.25 Mg Tablet) 0.25 mg PO ONCE ONE Stop: 10/15/24 17:09 Last Admin: 10/15/24 17:27 Dose: 0.25 mg Documented By: MARIE Alprazolam (Alprazolam 0.25 Mg Tablet) 0.25 mg PO NOW STA Stop: 10/15/24 18:00 Last Admin: 10/15/24 18:41 Dose: 0.25 mg Documented By: MARIE Acetaminophen (Ofirmev) 1,000 mg in 100 mls @ 400 mls/hr IV NOW STA Stop: 10/15/24 16:24 Last Infusion: 10/15/24 16:50 Dose: Infused Documented By: Admin: 10/15/24 16:22 Dose: 400 mls/hr Documented By: AMIE Insulin Human Regular 4 units/ (Syringe) 4 mls @ 24 mls/min IV ONE ONE Stop: 10/15/24 21:51 Last Admin: 10/15/24 23:07 Dose: 24 mls/min Documented By: SYLVESTER Co-signed By: JORI Levalbuterol HCl (Levalbuterol 1.25 Mg/3 Ml Neb) 1.25 mg NEB Q6H NELL Stop: 11/14/24 17:14 Last Admin: 10/15/24 17:35 Dose: Not Given Documented By: MARIE Methylprednisolone (Methylprednisolone 125 Mg/2 Ml Vial) 125 mg IV NOW STA Stop: 10/15/24 13:47 Last Admin: 10/15/24 14:05 Dose: 125 mg Documented By: JOSE Tramadol HCl (Tramadol Hcl 50 Mg Tablet) 25 mg PO NOW STA Stop: 10/15/24 18:00 Last Admin: 10/15/24 18:41 Dose: 25 mg Documented By: [facility] Imaging Data Radiologist's Impression: Chest X-Ray 10/15/24 12:22 XR chest 1V portable CLINICAL HISTORY: Chest pain, nonspecific COMPARISON STUDY: Chest CT January 07, 2022. Chest radiograph August 04, 2022. FINDINGS: Right internal jugular [id number] is unchanged in position. Intracanalicular electrodes are partially imaged. There is no pneumothorax or pleural effusion. Cardiomegaly is unchanged. No consolidation is present. Interstitial thickening is similar to prior exam. IMPRESSION: 1. No acute cardiopulmonary findings. 2. Chronic interstitial lung disease. ACT 112: Negative or not required by law. Electronically signed by: Dave Franz M.D. 10/15/2024 1:34 PM Discharge Plan Visit Data Chief Complaint: Asthma Stated Complaint: ASTHMA, COPD ED Provider: Gallo Miller ED Midlevel Provider: Carmen Becker Discharge Problem: Acute exacerbation of chronic obstructive pulmonary disease Patient Disposition: Admitted As Inpatient Condition: Fair Discharge Instructions Interventions: ED Discharge Assessment Last Done: 10/15/24 20:06 Addendum October 16, 2024 01:33 I was consulted by the Advanced Practice Provider and was substantively involved in the patient's visit.This includes aspects of the HPI, MDM, diagnostic interpretations, and disposition/plan. I discussed the case with the NICOLE and agree with the findings and plan as documented in NICOLE Eugenio's note.
[2024-10-15] MEDS: methylPREDNISolone 125 MG/2 ML VIAL IV STA (14:05)
[2024-10-15] MEDS: ALBUT/IPRATROP 3MG/0.5MG NEB 3 ML VIAL INH STA (14:05)
[2024-10-15 14:18] LABS: Basophils # (auto) 0.04 K/uL (0.00-0.20); Basophils % (auto) 0.4 %; Eosinophils # (auto) 0.12 K/uL (0.00-0.50); Eosinophils % (auto) 1.3 %; Hematocrit (blood only) 43.3 % (37.0-47.0); Hemoglobin 14.4 g/dl (12.0-16.0); Immature Granulocytes # (auto) 0.04 K/uL (0.01-0.20); Immature Granulocytes % (auto) 0.4 %; Lymphocytes # (auto) 2.58 K/uL (1.20-3.40); Lymphocytes % (auto) 27.7 %; Mean Corpuscular Hemoglobin 29.8 pg (25.0-34.0); Mean Corpuscular Hgb Conc 33.3 g/dL (32.0-36.0); Mean Corpuscular Volume 89.6 fL (80.0-100.0); Mean Platelet Volume 10.5 fL (9.4-12.4); Monocytes # (auto) 0.83 K/uL (0.11-0.59); Monocytes % (auto) 8.9 %; Neutrophils # (auto) 5.71 K/uL (1.40-6.50); Neutrophils % (auto) 61.3 %; Platelet Count 310 K/uL (130-400); RDW Coefficient of Variation 13.6 % (11.5-14.5); RDW Standard Deviation 44.5 fL (36.4-46.3); Red Blood Count 4.83 M/uL (4.20-5.40); White Blood Count 9.32 K/ul (4.8-10.8)
[2024-10-15 14:46] LABS: Partial Thromboplastin Ratio 0.9; Partial Thromboplastin Time 23 Seconds (21-31); Prothrombin Time 10.4 Seconds (9.0-12.0)
[2024-10-15 14:51] LABS: Albumin Globulin Ratio 1.3 (0.9-2); Albumin Level 3.7 gm/dl (3.4-5.0); BUN Creatinine Ratio 13.6 (10-20); Bilirubin,Total 1.2 mg/dl (0.2-1.0); Calcium 8.6 mg/dl (8.6-10.3); Creatinine Clr Calc Pharmacy 93.5 ml/min; Globulin 2.8 gm/dl (2.5-4.0); Potassium 4.1 mmol/L (3.5-5.1); Total Protein 6.5 gm/dl (6.0-8.3)
[2024-10-15 14:59] LABS: Troponin I High Sensitivity 6.6 pg/ml (0-14)
[2024-10-15 15:04] LABS: Magnesium 1.8 mg/dl (1.7-2.4)
[2024-10-15 15:15] LABS: Influenza A virus by PCR Negative (Neg); Influenza B virus by PCR Negative (Neg); RSV by PCR Negative (Neg); SARS CoV2 RNA(COVID-19) Ceph NEGATIVE (Negative)
[2024-10-15] MEDS: ALBUT/IPRATROP 3MG/0.5MG NEB 3 ML VIAL NEB ONE (16:09)
[2024-10-15] MEDS: ACETAMINOPHEN 1,000 MG/100 ML VIAL IV STA (16:22)
[2024-10-15] MEDS ORDERED: ALUMINUM/MAGNESIUM SUSP 30 ML UDC PO PRN (16:48)
[2024-10-15] MEDS ORDERED: GLUCOSE 10 TAB/TUBE PO PRN (16:50)
[2024-10-15] MEDS ORDERED: GLUCAGON FOR INJ 1 MG VIAL SQ PRN (16:50)
[2024-10-15] MEDS ORDERED: GLUCOSE 40% GEL 15 GM TUBE PO PRN (16:50)
[2024-10-15] MEDS ORDERED: PHARMACY GLYCEMIC MGMT CONSULT PRN (16:50)
[2024-10-15] MEDS ORDERED: CARBOHYDRATES FOR HYPOGLYCEMIA PO PRN (16:50)
[2024-10-15] MEDS ORDERED: DEXTROSE 50% 50 ML SYRINGE IV PRN (16:50)
[2024-10-15] MEDS: AZITHROMYCIN 250 MG TAB PO SCH (17:27)
[2024-10-15] MEDS: ALPRAZolam 0.25 MG TABLET PO ONE (17:27)
[2024-10-15] MEDS: LEVALBUTEROL 1.25 MG/3 ML NEB NEB SCH (17:35)
[2024-10-15] MEDS ORDERED: ALBUT/IPRATROP 3MG/0.5MG NEB 3 ML VIAL NEB SCH (18:00)
[2024-10-15] MEDS: ALPRAZolam 0.25 MG TABLET PO STA (18:41)
[2024-10-15] MEDS: traMADol HCL 50 MG TABLET PO STA (18:41)
[2024-10-15] MEDS: INSULIN ASPART PER UNIT CHARGE SC SCH (18:43)
--- NOTE | 2024-10-15 19:45 | History & Physical Report ---
Date of Service October 15, 2024 Assessment & Plan (1) COPD (chronic obstructive pulmonary disease) with acute bronchitis: Plan Assessment/plan Acute COPD exacerbation History of asthmaCOPD overlap Acute hypoxic respiratory failure Patient presents with increasing shortness of breath for the last few days No leukocytosis present Chest x-rayno acute finding Plan to start Levalbuterol and ipratropium nebs [id number], Start budesonide and formoterol nebs twice daily IV steroid and azithromycin Wean down oxygen as tolerated Type 2 diabetes mellitus continue on insulin Pulmonary hypertensionsildenafil continue OSAnoncompliant with CPAP Full code DVT prophylaxis heparin Time spent evaluating patient, direct bedside care, chart review, placing orders, interpretation of diagnostic studies, discussion with consultants, p atient, and family members, as well as other required patient management activities is 75 minutes Please note the above document was generated using voice recognition software. It may contain grammatical, syntax or spelling errors. Any formal questions or concerns about the content, text or information contained within the body of this dictation should be directly addressed to the provider for clarification History of Present Illness Chief Complaint: Shortness of breath for 3 days Primary Care Provider: Leighton Pinto DO History obtained from interview with the patient and chart review Type 2 diabetes mellitus, hyperlipidemia, asthmaCOPD overlap, PARRIS, hypertension, GERD, pulmonary hypertension Patient presents to the hospital with shortness of breath; reports that she has increasing difficulty breathing over the course of the weekend. She reports that she started to have intermittent cough which was nonproductive, increasing shortness of breath requiring use of home oxygen. She denies fever, chills, chest pain, abdominal pain or urinary symptoms. No sick contacts. Reports that she is feeling very anxious due to loss of her son recently. On presentation to the ED, patient was afebrile, hemodynamic stable and was requiring 3 L of oxygen by nasal cannula. No leukocytosis present. Chest x-ray did not show any acute finding. Patient was given DuoNeb, IV methylprednisolone and was referred for admission. Allergies Allergy/AdvReac Type Severity Reaction Status Date / Time No Known Allergies Allergy Unknown Verified 03/09/23 09:54 Home Medications Medication Instructions Recorded Confirmed Type metoprolol succinate 25 mg 12.5 mg (1/2 x 25 mg) PO TID #0 04/22/21 10/15/24 Rx tablet,extended release 24 hr tabs nebulizer accessories #1 ea 01/21/22 11/05/22 Rx nebulizer and compressor #1 ea 01/21/22 11/05/22 Rx CPAP Machine #1 ea 05/18/22 08/04/22 Rx CPAP Supplies #1 ea 05/18/22 08/04/22 Rx levalbuterol HCl 1.25 mg/3 mL 1.25 mg NEB Q4H PRN asthma/copd 08/04/22 10/15/24 History solution for nebulization arformoterol 15 mcg/2 mL solution 2 ml inhalation UD PRN asthma/copd 11/05/22 10/15/24 History for nebulization (Brovana) fluticasone 250 mcg-salmeterol 50 1 inh inhalation UD PRN asthma/copd 11/05/22 10/15/24 History mcg/dose blistr powdr for inhalation (Advair Diskus) furosemide 20 mg tablet (Lasix) 40 mg PO UD PRN Edema 11/05/22 10/15/24 History blood-glucose sensor (FreeStyle #2 ea 01/06/23 Rx Ling 3 Sensor device) albuterol sulfate 90 mcg/actuation 2 inh inhalation QID PRN 03/09/23 10/15/24 History aerosol inhaler asthma/copd sildenafil (pulm.hypertension) 20 10 mg PO TID 03/09/23 10/15/24 History mg tablet (Revatio) tramadol 50 mg tablet 50 mg PO Q4H PRN pain #15 tabs 06/01/23 10/15/24 Rx Tresiba FlexTouch U-100 100 20 unit (0.2 mL) subcut HS #30 mL 07/11/23 10/15/24 Rx unit/mL (3 mL) subcutaneous pen (insulin degludec) insulin aspart 10 unit subcut TIDM #30 mL 07/11/23 10/15/24 Rx (niacinamide)(U-100) 100 unit/mL(3 mL) subcutaneous pen (Fiasp FlexTouch U-100 Insulin) Past Med/Surg History Problem List (Updated 10/15/24 @ 19:44 by Luis Crawley MD) COPD (chronic obstructive pulmonary disease) with acute bronchitis Encounter for pre-operative examination GERD (gastroesophageal reflux disease) Asthma Pulmonary hypertension HTN (hypertension) Obstructive sleep apnea Dysphagia Chronic respiratory failure with hypoxia Vitamin D deficiency Class 3 obesity Poorly controlled type 2 diabetes mellitus Proliferative diabetic retinopathy associated with type 2 diabetes mellitus Anxiety and depression Dyslipidemia Medical History Sleep apnea inconsistent use/toleration issues. Nausea and vomiting after administration of anesthetic agent Neuropathy legs/stimular for right side/doesn't work battery is . Diabetic retinopathy injections for / most recent 3 wks ago/upcoming Mar 18 2023. Chronic cough no change in baseline. Oxygen deficiency o2 2-3L prn. Last need of oxygen September 2022. baseline oxygen sat 88 %, recently been in the 's. COPD (chronic obstructive pulmonary disease) denies recent flares. Asthma last use rescue inhler 1 wk or so ago. Denies recent flares. HTN (hypertension) Type 2 diabetes mellitus History of fracture of leg Right femoral condyle fracture 2021/no sx intervention as of current/knee replacement was advised. B12 deficiency hx History of COVID-19 Pneumonia with ARDS in 2020, 3 months hospitalization, shorter hospitalization in 2022. Surgical History History of cataract surgery right and left. History of bilateral breast reduction surgery History of surgery stimulator placement. History of x2 History of back surgery History of hysterectomy History of colonoscopy Family History Father Stroke Heart disease Cancer skin Mother Breast cancer Grandmother (Paternal) Breast cancer Social History Smoking Status: Former smoker Tobacco Type: Cigarettes Do You Dip or Chew Tobacco: No; Hx Alcohol Use: Yes Alcohol type: beer Hx Substance Use: No Preferred Language: Bahraini Communication Ability: Effective Ticket Sorter Required: No Beliefs That Will Affect Care: None Current Living Situation: Spouse and Other Current Living Situation Comment: daughter (handicap) Feels Safe at Home: Yes Assistive Devices: CPAP and Other Review of Systems Review of Systems: All systems reviewed & are unremarkable except as noted in Subjective Physical Exam Physical Exam: On physical examination; Constitutional: WD/WN, vitals as above, NAD, sitting up in bed, pleasant, conversing easily Respiratory: Bilateral wheeze heard Cardiovascular: RRR, no murmur, no edema Vessels: no JVD or carotid bruit Chest: normal inspection of chest Abdomen: normal bowel sounds, soft, nontender, no hepatosplenomegaly Musculoskeletal: no cyanosis or clubbing, extremities motor strength 5/5 Skin: no rashes, warm and dry normal turgor Neurologic: PERRL, EOMI, accommodation nl, no face palsy, no dysarthria CN's II- XI intact bilaterally and moves all extremities Results & Data Results & Data Vital Signs (Past 12 Hours) Vital Signs Temp Pulse Pulse Resp BP BP Pulse Ox 10/15/24 19:21 121 H 26 H 93 10/15/24 18:42 130 H 23 10/15/24 18:24 130 H 25 H 10/15/24 18:00 125/77 10/15/24 17:36 135 H 23 10/15/24 17:24 126 H 27 H 116/84 95 10/15/24 17:09 109 H 10/15/24 16:30 89 142/88 H 10/15/24 16:10 84 20 97 10/15/24 16:01 81 21 148/96 H 97 10/15/24 13:49 90 10/15/24 13:27 98 10/15/24 13:27 83 L 10/15/24 13:27 72 28 H 149/105 H 83 L 10/15/24 12:35 95 10/15/24 12:19 37 C 86 24 155/83 H 91 O2 Del Method O2 Flow Rate 10/15/24 19:21 Nasal Cannula 2 10/15/24 18:42 10/15/24 18:24 10/15/24 18:00 10/15/24 17:36 10/15/24 17:24 Nasal Cannula 2 10/15/24 17:09 10/15/24 16:30 10/15/24 16:10 Nasal Cannula 3 10/15/24 16:01 Nasal Cannula 2 10/15/24 13:49 10/15/24 13:27 Nasal Cannula 2 10/15/24 13:27 Room Air, Nasal Cannula 0 10/15/24 13:27 Room Air 10/15/24 12:35 Room Air 0 10/15/24 12:19 Room Air
[2024-10-15] MEDS: guaiFENesin/DEXTROM SYRUP 100MG/10MG 5ML UDC PO PRN (19:55)
--- OUTSIDE RECORDS SUMMARY | 2024-10-15 20:04 | External Medical Summary | Summary of Care ---
Author Name Unknown Organization [facility] Address [address] [facility] [place] [address] Phone [phone] Care Team Providers Care Senior Production Supervisor Name Role Phone Arcenio Galicia MD Primary Care Provider [phone] Reason for Visit * Reason Onset Date Comments Appointment 08/14/2024 Encounter Details Date Type Department Care Team (Late st Contact Info) Description 08/14/2024 Telephone Ophthalmology, [facility] [address] [place] [address] Constantin Marshall DO [address] [place] [phone] Appointment Allergies Active Allergy Reactions Criticality Noted Date Comments Albuterol Other (Please comment) 06/25/2010 Nausea, vomiting, high blood pressure Pollen 11/08/2022 documented as of this encounter (statuses as of 08/15/2024) Medications Levalbuterol HCl 0.31 MG/3ML Inhalation Nebulization SolutionIndicatio ns:Moderate persistent asthma without complication Inhale 3 mL via nebulizer every 4 hours as needed for Wheezing. 360 mL 5 3 Active hydrALAZINE HCl 10 MG Oral Tablet (Apresoline)Indic ations:HTN, goal below 130/80 Take by mouth 3 times a day. 90 Tablet 5 3 Active Metoprolol Succinate ER 25 MG Oral Tablet Extended Release 24 Hour (toPROL XL)Indications:HT N, goal below 130/80 1/2 tab every 8 hours 45 Tablet 5 3 Active Fiasp FlexTouch 100 UNIT/ML Subcutaneous Solution Pen-injector INJECT 10 UNITS SUBQ WITH EACH MEAL. MAX DAILY DOSE IS 50 UNITS 3 Active Tresiba FlexTouch 100 UNIT/ML Subcutaneous Solution Pen-injector INJECT 20 UNITS SUBQ AT BEDTIME. MAX 30 UNITS DAILY 3 Active Refresh Optive 0.5-0.9 % Ophthalmic Solution (carboxymethylcel l-glycerin) Instill 1 Drop into both eyes in the morning and 1 Drop at noon and 1 Drop in the evening and 1 Drop before bedtime. 10 mL 11 3 Active traZODone HCl 50 MG Oral Tablet (Desyrel) Take 1 Tablet by mouth at bedtime. 90 Tablet 3 4 Active Cyclobenzaprine HCl 5 MG Oral Tablet (Flexeril) 4 Active oxygen IN GAS Use 2 L/min(Oxygen) as directed. Active Breo Ellipta 50-25 MCG/INH Inhalation Aerosol Powder Breath Activated (Fluticasone Furoate-Vilantero l) Inhale 1 Puff by mouth in the morning. 60 Each 2 4 Active Albuterol Sulfate HFA 108 (90 Base) MCG/ACT Inhalation Aerosol Solution Inhale 2 Puffs by mouth every 6 hours as needed for Dyspnea or Wheezing. 18 g 2 4 Active Albuterol Sulfate 2.5 MG/0.5ML Inhalation Nebulization Solution (Proventil) Inhale 0.5 mL via nebulizer every 6 hours as needed for Wheezing. 360 mL 3 4 Active Hospital, Clinic, or Other Facility Administered Medication Ordered Dose Route Frequency Start Date End Date Status Albuterol Sulfate (Proventil) (2.5 MG/3ML) 0.083% inhalation solution 2.5 mgIndications:Asthma-CO PD overlap syndrome (HCC) 2.5 mg NEBULIZER PRN 09/02/2023 09/01/2024 Active Albuterol Sulfate (Proventil) (5 MG/ML) 0.5% *conc* inhalation solution 2.5 mgIndications:Asthma-CO PD overlap syndrome (HCC) 2.5 mg NEBULIZER PRN 09/02/2023 09/01/2024 Active ROPivacaine (Naropin) inj 1.5 mgIndications:Moderate nonproliferative diabetic retinopathy of both eyes with macular edema associated with type 2 diabetes mellitus (HCC) 1.5 mg IJ PRN 08/13/2024 08/13/2025 Active Faricimab-svoa (Vabysmo) prefilled syringe inj 6 mgIndications:Moderate nonproliferative diabetic retinopathy of both eyes with macular edema associated with type 2 diabetes mellitus (HCC) 6 mg IZ PRN 08/13/2024 08/13/2025 Active documented as of this encounter (statuses as of 08/15/2024) Active Problems Problem Noted Date Diagnosed Date COPD, group B, by GOLD 2017 classification 09/25 Overview: Per COPD GOLD Classification Adjustment insomnia 08/25/2023 Asthma-COPD overlap syndrome 08/25/2023 Gastroesophageal reflux disease without esophagi tis 11/03/2022 HTN, goal below 130/80 11/03/2022 PARRIS (obstructive sleep apnea) 11/03/2022 Dyslipidemia 04/14/2021 Type 2 diabetes mellitus wit h hemoglobin A1c goal of less than 8.0% 04/14/2021 documented as of this encounter (statuses as of 08/15/2024) Resolved Problems Problem Noted Date Diagnosed Date Resolved Date CHF (congestive heart failure) 11/03/2022 08/24/2023 Chronic respiratory failure with hypoxia 11/03/2022 12/20/2022 Asthma, moderate persistent 11/03/2022 08/25/2023 Chronic bronchitis 04/14/2021 Overview (04/14/2021): Significant asthma component. Acute respiratory distress s yndrome (ARDS) due to COVID-19 virus 04/14/2021 08/23/2023 Positive blood cultures 04/14/2021 03/0 10/2023 Overview (04/14/2021): Coagulase-negative Staphylococcus sp (two types, one sensitive and one resistant). Port-A-Cath in place 04/14/2021 03 024 Pneumonia due to COVID-19 virus 03/04/2021 08/23/2023 Benign neoplasm of colon 01/11/200710/2023 Overview (03/14/2007): hhperplastic polyp--repeat 10 years documented as of this encounter (statuses as of 08/15/2024) Immunizations Name Administration Dates Next Due Pneumococcal Conjugate Vacci ne, 20-valent ([id number]) 06/21/2023,11/03/2022(Deferred: Patient Refused) Pneumococcal Polysaccharide PPV23 (Pneumovax) 05/29/2021 Seasonal Influenza, High Dos e, Trivalent, PF, IM (Fluzone HD) 04/24/2024 Seasonal Influenza, Recombin ant, RIV4, PF, (Flublock) 05/29/2021 Zoster Vaccine Recombinant (Shingrix) 09/22/2020 ,07/19/2020 documented as of this encounter Social History Tobacco Use Types Packs/Day Years Used Date Smoking Tobacco: Former Cigarettes 0.5 6 0 06/20/1997 - 06/20/2003 Smokeless Tobacco: Never Alcohol Use Standard Drinks/Week Comments Yes 0 (1 standard drink = 0.6 oz pur e alcohol) occasionally Comments No Sex and Gender Information Value Date Recorded Sex Assigned at Not on file Legal Sex Female 5:14 AM EST Gender Identity Not on file Sexual Orientation Not on file documented as of this encounter Miscellaneous Notes * Telephone Encounter - Ivone Varela LPN - 08/14/2024 3:20 PM EST Patient stating that it is a headache and not eye pain. Patient aware that it is normal to have floaters after an injection and was advised if they are not better on , to call in so we can get her in for an appointment. * Telephone Encounter - Ivone Varela LPN - 08/14/2024 12:31 PM EST Zaira Florentino- Getting very large floaters constantly and now getting a headache 12:05 PM Message sent at 12:05 PM. 5 days left Message expires in 5 days. S Lynn Lopez said Had shot in clinic yesterday documented in this encounter Plan of Treatment Upcoming Encounters Date Type Department Care Team (Late st Contact Info) Description 09/28/2024 7:30 AM EDT [facility] [address] [place] [address] Constantin Marshall DO [address] [place] [address] Ramana Nurse Carol Woodward [address] [place] [address] Ramana Elevator Pilot Crissy [address] [place] [address] Health Maintenance Due Date Last Done Comments Depression Screening 1967 Albumin/Creatinine Ratio 11/24/1973 Alpha-1 Antitrypsin 11/24/1973 Hepatitis C Screening 11/24/1973 DTap/Tdap Vaccines (1 - Tdap) 11/24/1974 Mammogram 1995 Cologuard 11/24/2000 Fecal Occult Blood Test 11/24/2000 Sigmoidoscopy 11/24/2000 Colonoscopy 01/11/2017 01/11/2007 Colorectal Cancer Screening 01/11/2017 HbA1c 11/12/2018 05/15/2018 DXA Scan 11/24/2020 Adult Wellness Visit 11/24/2021 GFR 02/24/2023 02/24/2022, 04/20, 04/30/2021, Additional history exists Diabetic Foot Exam 11/04/2023 11/03/2022 COVID-19 Vaccine ( season) 2024 Diabetic Eye Exam 12/29/2024 12/30/2023, , 09/02/2022, Additional history exists O2 ASSESSMENT COMPLETED IN PAST YEAR FOR COPD 04/24/2025 04/24/2024 Lipid Panel 12/21/2027 12/20/2022 Zoster Vaccines Completed 09/22/2020, 07/19/2020 Pneumococcal Vaccine: 50+ Years Completed 06/21/2023, 05/29/2021 Influenza Vaccine (FLU shot) Completed 04/24/2024, 05/29/2021 HPV (Gardasil) Vaccine Aged Out No lo nger eligible based on patient's age to complete this topic Hepatitis B Vaccine Aged Out No longe r eligible based on patient's age to complete this topic MENINGOCOCCAL (MENACTRA/MENVEO) Aged Out No longer eligible based on patient's age to complete this topic Meningitis B Vaccine (Bexsero/Trumemba) Aged Out No longer eligible based on patient's age to complete this topic documented as of this encounter Medical Devices Implanted Type Area Air Valve Repairer Device Identifier Shelf Expiration Date Model / Serial / Lot Lens 23.5 [id number] - [id number] - [id number] Implanted:Qty: 1 on 11/10/2022 by Jose E Leon DO at OR [facility] Right: Eye [employer] 09/17/2024 [id number] / [id number] / [id number] Lens [id number] 12.5mm+23.50 - [id number] - [id number] Implanted:Qty: 1 on 11/24/2022 by Jose E Leon DO at OR [facility] Left: Eye [employer] 10/17/2024 [id number] / [id number] / [id number] documented as of this encounter Advance Directives * Full Code (Latest Code Status on File) Date Activated Date Inactivated Comments 11/24/2022 7:14 AM 11/24/2022 1:14 PM Question Answer Comments Discussion of Advance Direct alireza occurred with: Not Discussed due to patient's condition * Full Code Date Activated Date Inactivated Comments 11/10/2022 10:32 AM 11/10/2022 4:38 PM Question Answer Comments Discussion of Advance Direct alireza occurred with: Not Discussed due to patient's condition Care Teams Senior Production Supervisor Relationship Specialty Start Date End Date Arcenio Galicia MD [address] [place] [id number] PCP - General Family Medicine 06/18/24 documented as of this encounter
--- OUTSIDE RECORDS SUMMARY | 2024-10-15 20:04 | External Medical Summary | Summary of Care ---
Author Name Unknown Organization [facility] Address [address] [facility] [place] [address] Phone [phone] Care Team Providers Care Manager Of Loss Prevention Operations Name Role Phone Arcenio Galicia MD Primary Care Provider +1 -[phone] Reason for Visit * Reason Comments Follow Up * Precert (Within 10 days (routine)) - Authorized Specialty Diagnoses / Procedures Referred By Deb varner Referred To Contact Ophthalmology Diagnoses Type 2 diabetes mellitus with moderate nonproliferative diabetic retinopathy with macular edema, bilateral (HCC) Procedures MS INJECTION, FARICIMAB-SVOA, 0.1 MG MS INTRAVITREAL NJX PHARMACOLOGIC AGT SPX Constantin Marshall DO [address] [place] [address] Phone: tel: fax: Referral ID Status Reason Start Date Expiration Date V isits Requested Visits Authorized [id number] Authorized Precert 01/09/2024 01/07/[phone] Encounter Details Date Type Department Care Team (Late st Contact Info) Description 08/13/2024 8:15 AM EST Office Visit Ophthalmology, [facility] [address] [place] [address] Constantin Marshall DO [address] [place] [address] Moderate nonproliferative diabetic retinopathy of both eyes with macular edema associated with type 2 diabetes mellitus (HCC)* Allergies Active Allergy Reactions Criticality Noted Date Comments Albuterol Other (Please comment) 06/25/2010 Nausea, vomiting, high blood pressure Pollen 11/08/2022 documented as of this encounter (statuses as of 08/13/2024) Medications Levalbuterol HCl 0.31 MG/3ML Inhalation Nebulization [...] (Proventil) (2.5 MG/3ML) 0.083% inhalation solution 2.5 mgIndications:Asthma- COPD overlap syndrome (HCC) 2.5 mg NEBULIZER PRN 09/02/2023 09/02/19 25 Active Albuterol Sulfate (Proventil) (5 MG/ML) 0.5% *conc* inhalation solution 2.5 mgIndications:Asthma- COPD overlap syndrome (HCC) 2.5 mg NEBULIZER PRN 09/02/2023 09/02/19 25 Active ROPivacaine (Naropin) inj 1.5 mgIndications:Moderat e nonproliferative diabetic retinopathy of both eyes with macular edema associated with type 2 diabetes mellitus (HCC) 1.5 mg IJ PRN 08/13/2024 08/13/19 26 Active Faricimab-svoa (Vabysmo) prefilled syringe inj 6 mgIndications:Moderat e nonproliferative diabetic retinopathy of both eyes with macular edema associated with type 2 diabetes mellitus (HCC) 6 mg IZ PRN 08/13/2024 08/13/19 26 Active Faricimab-svoa (Vabysmo) intravitreal inj 6 mgIndications:Moderat e nonproliferative diabetic retinopathy of both eyes with macular edema associated with type 2 diabetes mellitus (HCC) 6 mg IZ PRN 02/03/2024 08/13/19 25 Discontinued ROPivacaine (Naropin) inj 1.5 mgIndications:Moderat e nonproliferative diabetic retinopathy of both eyes with macular edema associated with type 2 diabetes mellitus (HCC) 1.5 mg PERINEURAL PRN 02/03/2024 08/13/19 25 Discontinued documented as of this encounter (statuses as of 08/13/2024) Active Problems Problem Noted Date Diagnosed Date [...] as of this encounter (statuses as of 08/13/2024) Resolved Problems Problem Noted Date Diagnosed Date [...] and one resistant). 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 (03/14/2007): hhperplastic polyp--repeat 10 years documented as of this encounter (statuses as of 08/13/2024) Immunizations Name Administration Dates Next Due Pneumococcal Conjugate Vacci ne, 20-valent ([id number]) 06/21/2023,11/03/2022(Deferred: Patient Refused) Pneumococcal Polysaccharide PPV23 (Pneumovax) [...] on file documented as of this encounter Progress Notes * Constantin Marshall, DO - 08/13/2024 8:15 AM EST [facility] [place] Nursing Notes: Merly Sam TECH 08/13/24 0820 Signed Zaira He is a 68 year old year old female who presents for Mod NPDR OU. Last Office Visit: 04/13/2024 (in office), Visit date not found (telemedicine) Patient currently states no change in vision. Are you diabetic? Yes. Do you check your blood sugars daily? YES. Fasting BS this mornin mg/dl. Last Hemoglobin A1C: unknown Do you drive? yes OCT image(s) of both eyes acquired and filed/scanned into chart. Base Eye Exam Visual Acuity (Snellen - Linear) Right Left Dist cc 20/80 +2 20/70 Dist ph cc 20/70 NI Correction: Glasses Tonometry (Tonopen, 8:18 AM) Right Left Pressure 16 17 Pupils Dark Light Shape React APD Right 3.5 3 Round Brisk None Left 3 2.5 Round Brisk None Visual Sweeney (Counting fingers) Right Left Full Full Extraocular Movement Right Left Full, Ortho Full, Ortho Neuro/Psych Oriented x3: Yes Mood/Affect: Normal Dilation Both eyes: 0.5% Proparacaine @ 8:16 AM Dilation #2 Both eyes: 1.0% Mydriacyl, 2.5% Phenylephrine @ 8:18 AM Dilation Comments Patient cautioned that effects of dilation may last 2-7 hours dependant upon individual reaction. It was discussed that driving while dilated is not recommended. EXTERNAL: The ocular adnexae are unremarkable. SLE: Lids/Lashes: wnl OU Conjunctiva/Sclera: quiet OU Cornea: clear OU Anterior Chamber: deep and quiet OU Iris: normal OU; no NVI OU Lens: PCIOL OU Dilated fundus exam OD: vitreous: clear optic nerve: 0.3, no edema/pallor/NVD macula: dme vessels: wnl periphery: chinese medicine practitioner, no RT/RD Dilated fundus exam OS: vitreous: clear optic nerve: 0.25, no edema/pallor/NVD macula: dme vessels: wnl periphery: chinese medicine practitioner, no RT/RD OCT Interpretation: OD: recurrent diffuse dme--worse 36um prior worse 65um prior worse 109um prior worse 43um prior improved 19um, prior improved, prior worse 164um prior improved 307um prior worse 275um, prior worse 80um, prior improved, prior improved OS: temporal dme--mixed, prior worse 128um prior improved 122um prior improved 139um prior worse, prior improved 33um prior no sig change, prior worse 83um prio improved, prior improved, prior mildlyworse, prior improved OCTA Interpretation: 12/09/2022 compared to 07/01/2022 OD: scattered capillary shutdown, irregular ZUHAIR OS: scattered capillary shutdown, irregular ZUHAIR Fluorescein Interpretation: 09/19/2023 OD: capillary drop out, trace leakage, no nv OS: capillary drop out, trace leakage, no nv A/P: 1. Moderate Nonproliferative Diabetic Retinopathy OU -DME OD<OS OD: -Avastin OD 08/20/22, 07/22/22 -Eylea OD 09/24/22 -went 16 weeks -Vabysmo OD 04/13/24, 12/30/23, 09/19/23, 08/19/23, 04/18/23, 01/13/23 -17 weeks, went 8- 17 weeks OS: -Avastin OS 09/02/22, 07/01/22 -Eylea OS 12/09/22, 10/15/22, 10/28/22 -Vabysmo OS 03/02/24, 02/03/24, 11/11/23, 08/19/23, 04/18/23, 02/18/2023 -23 weeks, went 17 weeks -An examination for this condition was completed which is unrelated to the procedure that was performed today -monitor VA suboptimal OU even when OCT dry due to ischemic maculopathy and h/o chronic untreated dme -recommend HgbA1C <7, BP and lipid control. 2. Pseudophakia OU -Dr. Leon -stable 3. h/o Canaliculitis OD -improved on tobradix tid -if recurs, will refer to Dr. Ricci -Pt does not drive F/u 4-6 weeks, OCT OU Constantin Marshall DO TIMEOUT PROCEDURE: correct patient identity-YES correct procedure and consent-YES verified side and site-YES correct patient position-YES all necessary equipment/prior studies present-YES reviewed special requirements of this patient-YES PROCEDURE: Intravitreal injection of Vabysmo (faricimab) 6mg OD INFORMED CONSENT: Risks, benefits and alternatives have been discussed with the patient. Risks include, but are not limited to: retinal tears, detachments, hemorrhage, glaucoma, infection, cataracts, need for more procedures and the potential risk of arterial thromboembolic events following use of intravitreal VEGF inhibitors defined as nonfatal stroke, nonfatal myocardial infarction or vascular . Patient is aware of these risks and consents to the procedure. DESCRIPTION OF PROCEDURE: The procedure site was confirmed. Topical proparacaine was applied to the surface of the eye after which subconjunctival anesthetic was administered. The area was prepped in the standard aseptic manner with 5% Betadine solution. An eyelid speculum was placed and 6mg (0.05 ml) of Vabysmo was injected 3.75 mm posterior to the limbus into the midvitreous cavity with a 30 gauge short needle. The eye speculum was removed, Betadine was flushed from the eye and optic nerve perfusion was insured. The patient tolerated the procedure without difficulty and was given followup instructions and instructedto use ophthalmic ointment 3x/day as needed. Constantin Marshall DO, performed the procedure in its entirety. documented in this encounter Nursing Notes * Monica Mcdonald RN - 08/13/2024 8:41 AM EST Zaira He to receive seventh Vabysmo 6mg Injection of the Right eye. Correct eye confirmed with patient and marked by Constantin Marshall DO Vabysmo 6mg lot # [id number] Exp. Date: 09/2025 * Merly Sam TECH - 08/13/2024 8:12 AM EST Zaira He is a 68 year old year old female who presents for Mod NPDR OU. Last Office Visit: 04/13/2024 (in office), Visit date not found (telemedicine) Patient currently states no change in vision. Are you diabetic? Yes. Do you check your blood sugars daily? YES. Fasting BS this mornin mg/dl. Last Hemoglobin A1C: unknown Do you drive? yes OCT image(s) of both eyes acquired and filed/scanned into chart. documented in this encounter Plan of Treatment Upcoming Encounters Date Type Department Care Team (Late st Contact Info) Description 09/28/2024 7:30 AM EDT [facility] [address] [place] [address] Constantin Marshall, [address] [place] [address] Nurse Carol Boles [address] [place] [address] Photographer Crissy Boles [address] [place] [address] Scheduled Orders Name Type Priority Associated Diagnoses Orde r Schedule RETINA SCAN DIAGNOSTIC IMAGE, POSTERIOR Procedures Routine Moderate nonproliferative diabetic retinopathy of both eyes with macular edema associated with type 2 diabetes mellitus (HCC) Ordered: 08/13/2024 Health Maintenance Due Date Last Done Comments [...] this encounter Medical Devices Implanted Type Area Secretary Book Keeper Device Identifier Shelf Expiration Date Model / Serial / Lot Lens 23.5 Mx60e - [id number] - [id number] Implanted:Qty: 1 on 11/10/2022 by Jose E Leon DO at OR [facility] Right: Eye [employer] 09/17/2024 [id number]-29.5 / [id number] / [id number] Lens [id number] 12.5mm+23.50 - [id number] - [id number] Implanted:Qty: 1 on 11/24/2022 by Jose E Leon DO at OR [facility] Left: Eye [employer]CH [employer] LOMB 10/17/2024 [id number] / [id number] / [id number] documented as of this encounter Visit Diagnoses Diagnosis Moderate nonproliferative diabetic retinopathy of both eyes with macular edema associated with type 2 diabetes mellitus (HCC)- Primary documented in this encounter Administered Medications Active Administered Medications - up to 3 most recent administrations Medication Order MAR Action Action Date Dose Rate Site Faricimab-svoa (Vabysmo) prefilled syringe inj 6 mg 6 mg, Intravitreal, PRN Other, Starting on Tue08/13/24 at 0831, Until Tue08/13/25 at 0830, For 365 days, Each syringe should only be used for the treatment of a single eye. Only use the provided injection filter needle for the administration. Syringe must be stored under refrigeration and away from light. Syringe must reach room temperature prior to administration. May be kept at room temperature for up to 24 hours.Indications:Moderate nonproliferative diabetic retinopathy of both eyes with macular edema associated with type 2 diabetes mellitus (HCC) Given 08/13/2024 8:42 AM EST 6 mg Eye Right ROPivacaine (Naropin) inj 1.5 mg 1.5 mg, Injection, PRN Other, Starting on Tue08/13/24 at 0831, Until Tue08/13/25 at 0830, For 365 daysIndications:Moderate nonproliferative diabetic retinopathy of both eyes with macular edema associated with type 2 diabetes mellitus (HCC) Given 08/13/2024 8:42 AM EST 1.5 mg Eye Right documented in this encounter Advance Directives * Full Code [...] Discussed due to patient's condition Care Teams Manager Of Loss Prevention Operations Relationship Specialty Start Date End Date Arcenio Galicia MD [address] [place] [address] PCP - General Family Medicine 06/18/24 documented as of this encounter
--- OUTSIDE RECORDS SUMMARY | 2024-10-15 20:04 | External Medical Summary | Summary of Care ---
Author Name Unknown Organization [facility] Address [address] [facility] [place] [address] Phone [phone] Care Team Providers Care Dike Supervisor Name Role Phone Arcenio Galicia MD Primary Care Provider [phone] [phone] Reason for Visit * Reason Comments Follow Up * Precert (Within 10 days (routine)) - Authorized Specialty Diagnoses / Procedures Referred By Deb varner Referred To Contact Ophthalmology Diagnoses Type 2 diabetes mellitus with moderate nonproliferative diabetic retinopathy with macular edema, bilateral (HCC) Procedures MO INJECTION, FARICIMAB-SVOA, 0.1 MG MO INTRAVITREAL NJX PHARMACOLOGIC AGT SPX Constantin Marshall DO [address] [place] [address] Phone: tel: fax: Referral ID Status Reason Start Date Expiration Date V isits Requested Visits Authorized [id number] Authorized Precert 01/09/2024 01/07/[phone] Encounter Details Date Type Department Care Team (Late st Contact Info) Description 09/28/2024 7:30 AM EDT [facility] [address] [place] [phone] Constantin Marshall DO [address] [place] [address] Nurse Carol Boles [address] [place] [address] Photographer Crissy Boles [address] [place] [address] Moderate nonproliferative diabetic retinopathy of both eyes with macular edema associated with type 2 diabetes mellitus (HCC)* Allergies Active Allergy Reactions Criticality Noted Date Comments Albuterol Other (Please comment) 06/25/2010 Nausea, vomiting, high blood pressure Pollen 11/08/2022 documented as of this encounter (statuses as of 09/28/2024) Medications Levalbuterol HCl 0.31 MG/3ML Inhalation Nebulization [...] Route Frequency Start Date End Date Status ROPivacaine (Naropin) inj 1.5 mgIndications:Moderate nonproliferative diabetic retinopathy of both eyes with macular edema associated with type 2 diabetes mellitus (HCC) 1.5 mg IJ PRN 08/13/2024 08/13/2025 A ctive Faricimab-svoa (Vabysmo) prefilled syringe inj 6 mgIndications:Moderate nonproliferative diabetic retinopathy of both eyes with macular edema associated with type 2 diabetes mellitus (HCC) 6 mg IZ PRN 08/13/2024 08/13/2025 A ctive documented as of this encounter (statuses as of 09/28/2024) Active Problems Problem Noted Date Diagnosed Date [...] as of this encounter (statuses as of 09/28/2024) Resolved Problems Problem Noted Date Diagnosed Date [...] as of this encounter (statuses as of 09/28/2024) Immunizations Name Administration Dates Next Due Pneumococcal Conjugate Vacci ne, 20-valent ([id number]) 06/21/2023,11/03/2022(Deferred: Patient Refused) Pneumococcal Polysaccharide PPV23 (Pneumovax) [...] of this encounter Progress Notes * Constantin Marshall DO - 09/28/2024 7:30 AM EDT [facility] [place] Nursing Notes: Pablito MurraycarolCHAITANYA orozco 09/28/24 0759 Signed Zaira He is a 68 year old year old female who presents for Moderate NPDR OU. Last Office Visit: Visit date not found (in office), Visit date not found (telemedicine) Patient currently states no change in vision. Are you diabetic? Yes. Do you check your blood sugars daily? YES. Fasting BS this mornin mg/dl. Last Hemoglobin A1C: Lab Results Component Value Date/Time HGBA1C 11.5 (A) 05/15/2018 12:[address]? no OCT image(s) of both eyes acquired and filed/scanned into chart. Base Eye Exam Visual Acuity (Snellen - Linear) Right Left Dist sc 20/200 20/200 Dist ph sc 20/100 20/150 Pt broke glasses Tonometry (Tonopen, 7:58 AM) Right Left Pressure 17 15 Pupils Dark Light Shape React APD Right 3.5 3 Round Brisk None Left 3 2.5 Round Brisk None Visual Sweeney (Counting fingers) Right Left Full Full Extraocular Movement Right Left Full Full Neuro/Psych Oriented x3: Yes Mood/Affect: UPSET Dilation Both eyes: 0.5% Proparacaine @ 7:58 AM Dilation #2 Both eyes: 1.0% Mydriacyl, 2.5% Phenylephrine @ 7:58 AM EXTERNAL: The ocular adnexae are unremarkable. SLE: Lids/Lashes: wnl OU Conjunctiva/Sclera: quiet OU Cornea: clear OU Anterior Chamber: deep and quiet OU Iris: normal OU; no NVI OU Lens: PCIOL OU Dilated fundus exam OD: vitreous: clear optic nerve: 0.3, no edema/pallor/NVD macula: dme vessels: wnl periphery: shadowgraph operator, no RT/RD Dilated fundus exam OS: vitreous: clear optic nerve: 0.25, no edema/pallor/NVD macula: dme vessels: wnl periphery: shadowgraph operator, no RT/RD OCT Interpretation: OD: recurrent diffuse dme--improved 143um prior worse 36um prior worse 65um prior worse 109um priorworse 43um prior improved 19um, prior improved, prior [...] OD 09/24/22 -went 16 weeks -Vabysmo OD 08/13/24, 04/13/24, 12/30/23, 09/19/23, 08/19/23, 04/18/23, 01/13/23 -6 weeks, went 8- 17 weeks -An examination for this condition was completed which is unrelated to the procedure that was performed today -monitor OS: -Avastin OS 09/02/22, 07/01/22 -Eylea OS 12/09/22, 10/15/22, 10/28/22 -Vabysmo OS 03/02/24, 02/03/24, 11/11/23, 08/19/23, 04/18/23, 02/18/2023 -30 weeks, went 17 weeks VA suboptimal OU even when OCT dry due to ischemic maculopathy and h/o chronic untreated dme -recommend HgbA1C <7, BP and lipid control. 2. Pseudophakia OU -Dr. Leon -stable 3. h/o Canaliculitis OD -improved on tobradix tid -if recurs, will refer to Dr. Ricci -Pt does not drive F/u 6-8 weeks, OCT OU Constantin Marshall DO TIMEOUT PROCEDURE: correct patient identity-YES correct procedure and consent-YES verified side and site-YES correct patient position-YES all necessary equipment/prior studies present-YES reviewed special requirements of this patient-YES PROCEDURE: Intravitreal injection of Vabysmo (faricimab) 6mg OS INFORMED CONSENT: Risks, benefits and alternatives have [...] documented in this encounter Nursing Notes * Constantin Murray TECH - 09/28/2024 8:31 AM EDT Zaira He to receive seventh Vabysmo 6mg Injection of the Left eye. Correct eye confirmed with patient and marked by Constantin Marshall DO Vabysmo 6mg lot # [id number] Exp. Date: 09/2025 * Constantin Murray TECH - 09/28/2024 7:46 AM EDT Zaira He is a 68 year old year old female who presents for Moderate NPDR OU. Last Office Visit: Visit date not found (in office), Visit date not found (telemedicine) Patient currently states no change in vision. Are you diabetic? Yes. Do you check your blood sugars daily? YES. Fasting BS this mornin mg/dl. Last Hemoglobin A1C: Lab Results Component Value Date/Time HGBA1C 11.5 (A) 05/15/2018 12:[address]? no OCT image(s) of both eyes acquired and filed/scanned into chart. documented in this encounter Plan of Treatment Scheduled Orders Name Type Priority Associated Diagnoses Orde r Schedule RETINA SCAN DIAGNOSTIC IMAGE, POSTERIOR Procedures Routine Moderate nonproliferative diabetic retinopathy of both eyes with macular edema associated with type 2 diabetes mellitus (HCC) Ordered: 09/28/2024 Health Maintenance Due Date Last Done Comments [...] this encounter Medical Devices Implanted Type Area Quality Coordinator Device Identifier Shelf Expiration Date Model / Serial / Lot Lens 23.5 Mx60e - [id number] - [id number] Implanted:Qty: 1 on 11/10/2022 by Jose E Leon DO at OR [facility] Right: Eye BAUSCH 09/17/2024 [id number] / [id number] / [id number] Lens [id number] 12.5mm+23.50 - [id number] - [id number] Implanted:Qty: 1 on 11/24/2022 by Jose E Leon DO at OR [facility] Left: Eye BAUSCH 10/17/2024 [id number] / [id number] / [id number] documented as of this encounter Visit Diagnoses [...] with type 2 diabetes mellitus (HCC) Given 09/28/2024 8:34 AM EDT 6 mg Eye Left Given 08/13/2024 8:42 AM EST 6 mg Ey e Right ROPivacaine (Naropin) inj 1.5 mg 1.5 mg, Injection, PRN Other, Starting on Tue08/13/24 at 0831, Until Tue08/13/25 at 0830, For 365 daysIndications:Moderate nonproliferative diabetic retinopathy of both eyes with macular edema associated with type 2 diabetes mellitus (HCC) Given 09/28/2024 8:33 AM EDT 1.5 mg Eye Left Given 08/13/2024 8:42 AM EST 1.5 mg Ey e Right documented in this encounter Advance Directives [...] Discussed due to patient's condition Care Teams Dike Supervisor Relationship Specialty Start Date End Date Arcenio Galicia MD [address] [place] [address] PCP - General Family Medicine 06/18/24 documented as of this encounter
--- OUTSIDE RECORDS SUMMARY | 2024-10-15 20:04 | External Medical Summary | Summary of Care ---
Author Name Unknown Organization [facility] Address [address] [facility] [place] [address] Phone [phone] Care Team Providers Care Shoe Repair Cobbler Name Role Phone Arcenio Galicia MD Primary Care Provider [phone] Reason for Visit * Reason Comments Follow Up * Precert (Within 10 days (routine)) - Authorized Specialty Diagnoses / Procedures Referred By Deb varner Referred To Contact Ophthalmology Diagnoses Type 2 diabetes mellitus with moderate nonproliferative diabetic retinopathy with macular edema, bilateral (HCC) Procedures PA INJECTION, FARICIMAB-SVOA, 0.1 MG PA INTRAVITREAL NJX PHARMACOLOGIC AGT SPX Constantin Marshall DO [address] [place] [address] Phone: tel: fax: Referral ID Status Reason Start Date Expiration Date V isits Requested Visits Authorized [id number] Authorized Precert 01/09/2024 01/07/[phone] Encounter Details Date Type Department Care Team (Late st Contact Info) Description 08/13/2024 8:15 AM EST Office Visit Ophthalmology, [facility] [address] [place] [address] Constantin Marshall DO [address] [place] [address] Moderate nonproliferative diabetic retinopathy of both eyes [...] Next Due Pneumococcal Conjugate Vacci ne, 20-valent ([id number]) 06/21/2023,11/03/2022(Deferred: Patient Refused) Pneumococcal Polysaccharide PPV23 (Pneumovax) [...] - 08/13/2024 8:15 AM EST [facility] [place] Nursing Notes: [...] no edema/pallor/NVD macula: dme vessels: wnl periphery: transportation aid, no RT/RD Dilated fundus exam OS: vitreous: clear optic nerve: 0.25, no edema/pallor/NVD macula: dme vessels: wnl periphery: transportation aid, no RT/RD OCT Interpretation: OD: recurrent diffuse [...] Constantin Marshall DO Vabysmo 6mg lot # [id number] Exp. Date: 09/2025 * Merly Sam TECH [...] 7:30 AM EDT [facility] [address] [place] [address] Constantin Marshall, [address] [place] [address] Nurse Carol Boles [address] [place] [address] Photographer Crissy Boles [address] [place] [address] Scheduled Orders Name Type Priority Associated Diagnoses [...] this encounter Medical Devices Implanted Type Area Supervisor Cigar Processing Device Identifier Shelf Expiration Date Model / Serial / Lot Lens 23.5 Mx60e - [id number] - [id number] Implanted:Qty: 1 on 11/10/2022 by Jose E Leon DO at OR [facility] Right: Eye [employer] 09/17/2024 [id number]-03.5 / [id number] / [id number] Lens [id number] 12.5mm+23.50 - [id number] - [id number] Implanted:Qty: 1 on 11/24/2022 by Jose E Leon DO at OR [facility] Left: Eye [employer]CH [employer] LOMB 10/17/2024 [id number] / [id number] / [id number] documented as of this encounter Visit Diagnoses [...] Discussed due to patient's condition Care Teams Shoe Repair Cobbler Relationship Specialty Start Date End Date Arcenio Galicia MD [address] [place] [address] PCP - General Family Medicine 06/18/24 documented as of this encounter
--- OUTSIDE RECORDS SUMMARY | 2024-10-15 20:05 | External Medical Summary | Summary of Care ---
Author Name Unknown Organization [facility] Address [address] [facility] [place] [address] Phone [phone] Care Team Providers Care Civil Engineering Specialist Name Role Phone Zuly Rainey Primary Care Provider [phone]- [phone] Reason for Referral * Precert (Within 10 days (routine)) - Pending Review Specialty Diagnoses / Procedures Referred By Contac t Referred To Contact Radiology Diagnoses Lung nodule COPD, moderate (HCC) Procedures CT CHEST WO CONTRAST Kostas Kruger MD [address] [place] [id number] Referral ID Status Reason Start Date Expiration Date V isits Requested Visits Authorized [id number] Pending Review 04/25/2025 999 999 Reason for Visit * Reason Onset Date Comments Follow Up Medication Administration 04/24/2024 Flu an d/or Pneumo Inj Encounter Details Date Type Department Care Team (Late st Contact Info) Description 04/24/2024 12:20 PM EST Office Visit Pulmonary Medicine, [facility] [address] [place] [address] Kostas Kruger MD [address] [place] [id number] Need for prophylactic vaccination and inoculation against influenza*; Lung nodule; COPD, moderate (HCC) Allergies Active Allergy Reactions Criticality Noted Date Comments Albuterol Other (Please comment) 06/25/2010 Nausea, vomiting, high blood pressure Pollen 11/08/2022 documented as of this encounter (statuses as of 04/24/2024) Medications Medication Sig Dispensed Refills Start Date End Date Status Levalbuterol HCl 0.31 MG/3ML Inhalation Nebulization SolutionIndication s:Moderate persistent asthma without complication Inhale 3 mL via nebulizer every 4 hours as needed for Wheezing. 360 mL 5 12/20/2022 Active hydrALAZINE HCl 10 MG Oral Tablet (Apresoline)Indica tions:HTN, goal below 130/80 Take by mouth 3 times a day. 90 Tablet 5 12/20/2022 Active Metoprolol Succinate ER 25 MG Oral Tablet Extended Release 24 Hour (toPROL XL)Indications:HTN , goal below 130/80 1/2 tab every 8 hours 45 Tablet 5 12/20/2022 Active Fiasp FlexTouch 100 UNIT/ML Subcutaneous Solution Pen-injector INJECT 10 UNITS SUBQ WITH EACH MEAL. MAX DAILY DOSE IS 50 UNITS 01/12/2023 Active Tresiba FlexTouch 100 UNIT/ML Subcutaneous Solution Pen-injector INJECT 20 UNITS SUBQ AT BEDTIME. MAX 30 UNITS DAILY 01/17/2023 Active Refresh Optive 0.5-0.9 % Ophthalmic Solution (carboxymethylcell -glycerin) Instill 1 Drop into both eyes in the morning and 1 Drop at noon and 1 Drop in the evening and 1 Drop before bedtime. 10 mL 11 01/27/2023 Active traZODone HCl 50 MG Oral Tablet (Desyrel) Take 1 Tablet by mouth at bedtime. 90 Tablet 3 08/24/2023 Active Cyclobenzaprine HCl 5 MG Oral Tablet (Flexeril) 09/01/2023 Active oxygen IN GAS Use 2 L/min(Oxygen) as directed. Active Breo Ellipta 50-25 MCG/INH Inhalation Aerosol Powder Breath Activated (Fluticasone Furoate-Vilanterol ) Inhale 1 Puff by mouth in the morning. 60 Each 2 04/24/2024 Active Albuterol Sulfate HFA 108 (90 Base) MCG/ACT Inhalation Aerosol Solution Inhale 2 Puffs by mouth every 6 hours as needed for Dyspnea or Wheezing. 18 g 2 04/24/2024 Active Albuterol Sulfate 2.5 MG/0.5ML Inhalation Nebulization Solution (Proventil) Inhale 0.5 mL via nebulizer every 6 hours as needed for Wheezing. 360 mL 3 04/24/2024 Active Spiriva Respimat 2.5 MCG/ACT Inhalation Aerosol Solution (Tiotropium Enterprise Monohydrate) Inhale 2 Puffs by mouth in the morning. 1 Each 04/24/2024 05/24/2024 Active Albuterol Sulfate 2.5 MG/0.5ML Inhalation Nebulization Solution (Proventil) Inhale 0.5 mL via nebulizer. 04/24/2024 Discontinue d(Refill) Breo Ellipta 50-25 MCG/INH Inhalation Aerosol Powder Breath Activated (Fluticasone Furoate-Vilanterol ) Inhale 1 Puff by mouth in the morning. 60 Each 2 10/17/2023 04/24/2024 Discontinue d(Refill) Albuterol Sulfate HFA 108 (90 Base) MCG/ACT Inhalation Aerosol Solution Inhale 2 Puffs by mouth every 6 hours as needed for Dyspnea or Wheezing. 18 g 2 10/17/2023 04/24/2024 Discontinue d(Refill) Hospital, Clinic, or Other Facility Administered Medication Ordered Dose Route Frequency Start Date End Date Status Albuterol Sulfate (Proventil) (2.5 MG/3ML) 0.083% inhalation solution 2.5 mgIndications:Asthma-CO PD overlap syndrome (HCC) 2.5 mg NEBULIZER PRN 09/02/2023 09/01/2024 Active Albuterol Sulfate (Proventil) (5 MG/ML) 0.5% *conc* inhalation solution 2.5 mgIndications:Asthma-CO PD overlap syndrome (HCC) 2.5 mg NEBULIZER PRN 09/02/2023 09/01/2024 Active Faricimab-svoa (Vabysmo) intravitreal inj 6 mgIndications:Moderate nonproliferative diabetic retinopathy of both eyes with macular edema associated with type 2 diabetes mellitus (HCC) 6 mg IZ PRN 02/03/2024 02/02/2025 Active ROPivacaine (Naropin) inj 1.5 mgIndications:Moderate nonproliferative diabetic retinopathy of both eyes with macular edema associated with type 2 diabetes mellitus (HCC) 1.5 mg PERINEURAL PRN 02/03/2024 02/02/2025 Active documented as of this encounter (statuses as of 04/24/2024) Active Problems Problem Noted Date Diagnosed Date [...] as of this encounter (statuses as of 04/24/2024) Resolved Problems Problem Noted Date Diagnosed Date Resolved Date CHF (congestive heart failure) 11/03/2022 08/24/2023 Chronic respiratory failure with hypoxia 11/03/2022 12/20/2022 Asthma, moderate persistent 11/03/2022 08/25/2023 Chronic bronchitis 04/14/2021 Overview: Significant asthma component. Acute respiratory distress s yndrome (ARDS) due to COVID-19 virus 04/14/2021 08/23/2023 Positive blood cultures 04/14/2021 03/10/2023 Overview: Coagulase-negative Staphylococcus sp (two types, one sensitive and one resistant). 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: hhperplastic polyp--repeat 10 years documented as of this encounter (statuses as of 04/24/2024) Immunizations Name Administration Dates Next Due Pneumococcal Conjugate Vacci ne, 20-valent ([id number]) 06/21/2023,11/03/2022(Deferred: Patient Refused) Pneumococcal Polysaccharide PPV23 (Pneumovax) [...] = 0.6 oz pur e alcohol) occasionally Sex and Gender Information Value Date Recorded Sex Assigned at Not on file Gender Identity Not on file Sexual Orientation Not on file Job Start Date Occupation Industry Not on file Not on file Not on file documented as of this encounter Last Filed Vital Signs Vital Sign Reading Time Taken Comments Blood Pressure 120/80 04/24/2024 12:33 PM EST Pulse 97 04/24/2024 12:33 PM EST Temperature 36.8 °C (98.2 °F) 04/24/2024 1 2:33 PM EST Respiratory Rate 20 04/24/2024 12:3 3 PM EST Oxygen Saturation 93% 04/24/2024 12: 34 PM EST ra, amb Inhaled Oxygen Concentration - - Weight 90.6 kg (199 lb 12.8 oz) 024 12:33 PM EST Height 152.4 cm (5') 04/24/2024 12:33 PM EST Body Mass Index 39.02 04/24/2024 12:33 PM EST documented in this encounter Patient Instructions * Patient Instructions* Lacey Denney LPN - 04/24/2024 12:38 PM EST ~~PATIENT INSTRUCTIONS FOR FLU SHOT~~ Possible side effects of influenza vaccine, (flu shot), are usually mild and include: 1. Soreness or redness at injection site 2. Low grade fever 3. Body aches You may use Tylenol/Acetaminophen as needed for these symptoms. LET YOUR DOCTOR KNOW IMMEDIATELY IF YOU HAVE DIFFICULTY BREATHING OR SWALLOWING, EXPERIENCE ITCHINGOF FEET OR HANDS, HAVE SWELLING OF EYES, FACE OR INSIDE OF NOSE. documented in this encounter Progress Notes * Lacey Denney LPN - 04/24/2024 12:37 PM EST PRE - ADMINISTRATION DOCUMENTATION Are you experiencing any cold symptoms or fever? No Have you had Guillain-[place] Syndrome (an illness that causes paralysis) within the last 6 weeks? No Have you had the flu shot in the past? YES Have you ever had a reaction to the flu shot? No Lacey Denney LPN, 04/24/2024 12:37 PM Immunization Administration Documentation Time Out Procedure Performed: Yes Patient Identified (Ask Name/Date of ): Yes Does the patient have a fever greater than 101 degrees today? No Patient allergic to latex? 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 HTN Diabetic Retinopathy OSAS, not using CPAP, undergoing inspire therapy eval HTN Diabetic Retinopathy Current BD Rx: Breo and albuterol Pulmonary Nodules LLL and RLL (15:158 ; 4:183), likely post COVID changes Patient describes stable respiratory symptoms status with episodic cough, denies mucopurulent expectoration. Denies interval hospitalizations or Emergency Room visits. Physical examination is significant for tearful middle aged female, class 2 throat, scattered coarse wheezing without dullness, regular cardiac rhythm, no evidence of volume overload and nonlateralizing Neuro examination. CT chest 04/17/2024 shows stable status of lung nodules along with scattered ground-glass changes, consistent with post COVID ILD changes. Plan: Repeat HRCT Chest in 12 months Continue with home oxygen therapy. POC C/w current BD Rx (Breo + Albuterol - not covered for Xopenex) Add Spiriva F/u 12 months Follow Up: Return in about 1 year (around 04/24/2025) for Clinic Visit. 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 | For: Clinic Visit | Check-out note: ground-glass changes, consistent with post COVID ILD changes. Plan: Repeat HRCT Chest in 12 months Continue with home oxygen therapy. POC C/w current BD Rx (Breo + Albuterol - not covered for Xopenex) Add Spiriva F/u 12 months Kostas Kruger MD Data review: Following reports, and data as outlined below was personally reviewed and interpreted by myself. CT Chest Without Contrast; Diagnostic Exam date and time: 04/17/2024 11:01 AM Age: 68 years old Clinical indication: Chronic obstructive pulmonary disease, unspecified; Other specified chronic obstructive pulmonary disease; Additional info: 6 month f/u lung nodule and post covid ild TECHNIQUE: Imaging protocol: Diagnostic computed tomography of the chest without contrast. Radiation optimization: All CT scans at this facility use at least one of these dose optimization techniques: automated exposure control; mA and/or kV adjustment per patient size (includes targeted exams where dose is matched to clinical indication); or iterative reconstruction. COMPARISON: DX XR CHEST 2 VIEWS 10/07/2023 12:23 PM FINDINGS: Tubes, catheters and devices: Port-A-Cath again demonstrated. Incomplete visualization of intraspinal neurostimulator Lungs: Bilateral ground-glass regions of opacification. Findings nonspecific however most likely reflect interstitial lung disease. 11 mm persistent nodule with coarse focus of calcification left lower lobe. Findings stable. 5 mm solid pulmonary nodule again identified in the right lower lobe (series 7 image number 63) findings stable. Pleural spaces: Persistent trace bilateral pleural reactive changes Heart: Unremarkable. No cardiomegaly. No pericardial effusion. Coronary arteries: Coronary artery calcification Mediastinal space: Prominent mediastinal fat again demonstrated. No evidence of suspicious adenopathy Lymph nodes: See "Mediastinal space" finding. Vasculature: Regions of atherosclerotic vascular calcification involving the aortic arch. Liver: Decreased density throughout the liver compatible with hepatic steatosis. Bones/joints: Unremarkable. No acute fracture. Soft tissues: Unremarkable. Other findings: Moderately severe emphysema. IMPRESSION IMPRESSION: 1. Bilateral ground-glass regions of opacification. Findings nonspecific however most likely reflect interstitial lung disease. 2. Moderately severe emphysema. 3. 11 mm benign-appearing nodule left lower lobe. Findings stable. 4. Stable 5 mm pulmonary nodule right lower lobe.For patients at low risk (minimal or absent history of smoking and of other known risk factors), no routine follow-up is indicated. For patients at high risk (history of smoking or of other known risk factors), consider optional CT Chest at 12 months. (Reference: Rosie) Subjective CC: Chief Complaint Patient presents with Follow Up Medication Administration Flu and/or Pneumo Inj HPI: Nursing Notes: Lacey Denney LPN 04/24/24 1247 Addendum Pt here for f/u Asthma-COPD overlap syndrome. Interm History/Respiratory Symptoms Cough: occasional, clear phlegm Hemoptysis: no Sinus Symptoms: allergies Hospitalizations: no ED Trips: no Triggers: changes in seasons, humidity Nocturnal: occasional cough and/or sob, sleeps with head elevated CPAP/BiPAP/O2: O2 2LPM, "use when needed" DME Supplier: [facility]-recently changed Flu Vaccine: today Pneumovax: 2020 Prevnar: no COVID 19: no Mmrc Cat Question 04/24/2024 12:44 PM EST - Filed by Lacey Denney LPN When do you become breathless? (4) I am too breathless to leave the house or I am breathless when dressing How frequently do you cough? (3) Do you have phlegm in your chest? (2) Is your chest tight? (0) - My chest does not feel tight at all How breathless do you become when walking up a hill or steps? (5) - When I walk up a hill or one flight of stairs I am very breathless How limited are you doing activities at home? (4) How confident are you leaving home with your lung condition? (0) - I am confident leaving my home despite my condition How soundly do you sleep? (2) How much energy do you have? (3) Total MMRC Score (range: 0 - 4) 4 Total CAT Score (range: 0 - 40) 19 Asthma Control Test Question 04/24/2024 12:44 PM EST - Filed by Lacey Denney LPN Please select the best response to the five questions below, by clicking the appropriate option button. In the past 4 weeks, how much of the time did your asthma keep you from getting as much done at work, school or at home? (3) Some of the time During the past 4 weeks, how often have you had shortness of breath? (1) More than once a day During the past 4 weeks, how often did your asthma symptoms (wheezing, coughing, shortness of breath, chest tightness or pain) wake you up at night or earlier than usual in the morning? (1) 4 or morenights a week During the past 4 weeks, how often have you used your rescue inhaler or nebulizer medication (such as albuterol)? (3) 2 or 3 times per week How would you rate your asthma control during the past 4 weeks? (3) Somewhat controlled Total ACT Adult Score (range: 5 - 25) 11 (Poorly Controlled) Total ACT Child Score (range: 0 - 27) Incomplete Objective Filed Vitals: 04/24/24 1233 04/24/24 1234 BP: 120/80 Pulse: 97 Resp: 20 Temp: 36.8 °C (98.2 °F) TempSrc: Tympanic SpO2: 94% 93% Weight: 90.6 kg (199 lb 12.8 oz) Height: 1.524 m (5') Exam: Const: No signs of acute distress present. Head/Face: Normal on inspection. Eyes: Conjunctivae clear. Pupils equal round and reactive to light. ENMT: Oropharynx: No erythema, exudate or masses. Posterior pharynx is normal. Neck: Supple and symmetric. Resp: Respiratory examination as outlined above CV: Rate is regular. Rhythm is regular. No heart murmur appreciated. Extremities: No edema of the lower limbs bilaterally. Skin: Skin is warm and dry. Neuro: Coordination normal. No involuntary movement. Psych: Patient's attitude is cooperative. Mood is normal. Affect is normal. Tests reviewed with the patient: CT CHEST WO CONTRAST Result Date: 04/23/2024 IMPRESSION: 1. Bilateral ground-glass regions of opacification. Findings nonspecific however most likely reflect interstitial lung disease. 2. Moderately severe emphysema. 3. 11 mm benign-appearing nodule left lower lobe. Findings stable. 4. Stable 5 mm pulmonary nodule right lower lobe.For patients at low risk (minimal or absent history of smoking and of other known risk factors), no routine follow-up is indicated. For patients at high risk (history of smoking or of other known risk factors), consider optional CT Chest at 12 months. (Reference: Rosie) REFERENCES: Rosie Rueda, et al. Guidelines for Management of Incidental Pulmonary Nodules Detected on CT Images: From the Fleischner Society 2017. Radiology. 2017;284(1):228-243. THIS DOCUMENT HAS BEEN ELECTRONICALLY SIGNED BY FARHEEN VARGHESE MD Available Radiologic data was reviewed by me in PACS. The images were shown to the patient and findings were discussed with the patient. HOME MEDICATIONS: Albuterol Sulfate 2.5 MG/0.5ML Inhalation Nebulization Solution (Proventil) Albuterol Sulfate HFA 108 (90 Base) MCG/ACT Inhalation Aerosol Solution Breo Ellipta 50-25 MCG/INH Inhalation Aerosol Powder Breath Activated (Fluticasone Furoate-Vilanterol) oxygen IN GAS Cyclobenzaprine HCl 5 MG Oral Tablet (Flexeril) traZODone HCl 50 MG Oral Tablet (Desyrel) Fiasp FlexTouch 100 UNIT/ML Subcutaneous Solution Pen-injector Refresh Optive 0.5-0.9 % Ophthalmic Solution (carboxymethylcell-glycerin) Tresiba FlexTouch 100 UNIT/ML Subcutaneous Solution Pen-injector hydrALAZINE HCl 10 MG Oral Tablet (Apresoline) Levalbuterol HCl 0.31 MG/3ML Inhalation Nebulization Solution Metoprolol Succinate ER 25 MG Oral Tablet Extended Release 24 Hour (toPROL XL) Faricimab-svoa (Vabysmo) intravitreal inj 6 mg ROPivacaine (Naropin) inj 1.5 mg Albuterol Sulfate (Proventil) (2.5 MG/3ML) 0.083% inhalation solution 2.5 mg Albuterol Sulfate (Proventil) (5 MG/ML) 0.5% *conc* inhalation solution 2.5 mg ROS: No reported history of Hemoptysis, Hematemesis, Melena No reported history of Dysuria, Hematuria, Flank Pain No reported history of chronic headache, seizures No reported history of Fall or trauma . No reported history of recent change in weight or appetite. Past Medical History: Diagnosis Date Adjustment insomnia 08/25/2023 Asthma Benign neoplasm of colon 01/11/2007 hhperplastic polyp--repeat 10 years COPD (chronic obstructive pulmonary disease) (HCC) Hyperlipidemia 04/14/2021 Simple chronic bronchitis (HCC) 04/14/2021 Sleep apnea, obstructive Type II or unspecified type diabetes mellitus without mention of complication, not stated as uncontrolled 04/14/2021 Past Surgical History: Procedure Laterality Date COLONOSCOPY THRU STOMA, W/BIOPSY 01/11/2007 hyperplastic polyp--repeat 10 years EGD, FLEXIBLE, W/BIOPSY 01/11/2007 no evidence of gastritis ore infection with h. pylori FLUORESCEIN ANGIOGRAPHY MULTIFRAME 09/19/2023 FA OU, Dr. Marshall INJECTION OF EYE DRUG Left 07/01/2022 # 1 Avastin OS, Dr. Marshall INJECTION OF EYE DRUG Right 07/22/2022 #1 Avastin OD, Dr Marshall INJECTION OF EYE DRUG Right 08/20/2022 # 2 Avastin OD, Dr. Marshall INJECTION OF EYE DRUG Left 09/02/2022 #2 Avastin OS; Dr Marshall INJECTION OF EYE DRUG Right 09/24/2022 # 1 Eylea OD, Dr. Marshall INJECTION OF EYE DRUG Left 10/15/2022 # 1 Eylea OS, Dr. Marshall INJECTION OF EYE DRUG Left 12/09/2022 # 2 Eylea OS, Dr. Marshall INJECTION OF EYE DRUG Right 01/13/2023 #1 Vabysmo OD; DR Marshall INJECTION OF EYE DRUG Left 02/18/2023 # [address] Marshall INJECTION OF EYE DRUG Right 04/18/2023 # 2 Vabysmo OD, Dr. Marshall INJECTION OF EYE DRUG Left 04/18/2023 # 2 Vabysmo OS, Dr. Marshall INJECTION OF EYE DRUG Left 08/19/2023 #3 vabysmo OS; Dr Marshall INJECTION OF EYE DRUG Right 08/19/2023 #3 Vabysmo OD; DR Marshall INJECTION OF EYE DRUG Right 09/19/2023 # 4 Vabysmo OD, Dr. Marshall INJECTION OF EYE DRUG Left 11/11/2023 # [address] Marshall INJECTION OF EYE DRUG Right 12/30/2023 # 5 Vabysmo OD, Dr. Marshall INJECTION OF EYE DRUG Left 02/03/2024 #5 Vabysmo OS; Dr Marshall INJECTION OF EYE DRUG Left 03/02/2024 #6 Vabysmo OS, Dr. Marshall INJECTION OF EYE DRUG Right 04/13/2024 # 6 Vabysmo OD, Dr. Marshall OTHER (INFORMATION) Bilateral AVASTIN OU CONSENT DR. MARSHALL/PAYAL EXP. 07/01/23 OTHER (INFORMATION) ACT 112 signed 07/01/22 Rolando OTHER (INFORMATION) Bilateral EYLEA OU CONSENT SIGNED Dr. Marshall/Payal (09-25-23) OTHER (INFORMATION) Consent OU Vabysmo exp 01/14/24; Dr marshall/payal OTHER (INFORMATION) VABYSMO CONSENT OU exp 02/02/25; Dr Marshall REMOVE CATARACT, INSERT LENS PROSTH Right 11/10/2022 RIGHT EXTRACAPSULAR CATARACT REMOVAL WITH INTRAOCULAR LENS performed by Jose E Leon DO at OR [facility] REMOVE CATARACT, INSERT LENS PROSTH Left 11/24/2022 LEFT EXTRACAPSULAR CATARACT REMOVAL WITH INTRAOCULAR LENS performed by Jose E Leon DO at OR [facility] Social History Socioeconomic History Marital status: Tobacco Use Smoking status: Former Current packs/day: 0.00 Average packs/day: 0.5 packs/day for 6.0 years (3.0 ttl pk-yrs) Types: Cigarettes Start date: 06/20/1997 Quit date: 06/20/2003 Years since quittin.8 Smokeless tobacco: Never Vaping Use Vaping status: Never Used Substance and Sexual Activity Alcohol use: Yes Comment: occasionally Drug use: Never Social Determinants of Health Financial Resource Strain: Low Risk (04/28/2023) [facility] from [facility] ([facility]) Financial Resource Strain Sometimes people find that their income does not quite cover their living costs. In the last 12 months, has this happened to you?: No What is your current work situation? 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) Food Insecurity: Low Risk (04/28/2023) Received from [facility] ([facility]), [facility] ([facility]) Food Insecurity Within the past 12 months we worried whether our food would run out before we got the money to buy more.: Never true Within the past 12 months the food we bought just didn't last and we didn't have money to get more.: Never true Social Connections Housing Stability: Low Risk (04/28/2023) Received from [facility] ([facility]), [facility] ([facility]), [facility] ([facility]) Housing Stability Are you worried about losing your housing?: No In the past 12 months has the electric, gas, oil, or water company threatened to shut off services in your home?: No Family History Problem Relation Name Age of Onset Stroke Father Heart failure Daughter Brain tumor Daughter Review of patient's allergies indicates: Allergen Reactions Albuterol Other (Please comment) Nausea, vomiting, high blood pressure Pollen documented in this encounter Nursing Notes * Lacey Denney LPN - 04/24/2024 12:29 PM EST Pt here for f/u Asthma-COPD overlap syndrome. Interm History/Respiratory Symptoms Cough: occasional, clear phlegm Hemoptysis: no Sinus Symptoms: allergies Hospitalizations: no ED Trips: no Triggers: changes in seasons, humidity Nocturnal: occasional cough and/or sob, sleeps with head elevated CPAP/BiPAP/O2: O2 2LPM, "use when needed" DME Supplier: [facility]-recently changed Flu Vaccine: today Pneumovax: 2020 Prevnar: no COVID 19: no Mmrc Cat Question 04/24/2024 12:44 PM EST - Filed by Lacey Denney LPN When do you become breathless? (4) I am too breathless to leave the house or I am breathless when dressing How frequently do you cough? (3) Do you have phlegm in your chest? (2) Is your chest tight? (0) - My chest does not feel tight at all How breathless do you become when walking up a hill or steps? (5) - When I walk up a hill or one flight of stairs I am very breathless How limited are you doing activities at home? (4) How confident are you leaving home with your lung condition? (0) - I am confident leaving my home despite my condition How soundly do you sleep? (2) How much energy do you have? (3) Total MMRC Score (range: 0 - 4) 4 Total CAT Score (range: 0 - 40) 19 Asthma Control Test Question 04/24/2024 12:44 PM EST - Filed by Lacey Denney LPN Please select the best response to the five questions below, by clicking the appropriate option button. In the past 4 weeks, how much of the time did your asthma keep you from getting as much done at work, school or at home? (3) Some of the time During the past 4 weeks, how often have you had shortness of breath? (1) More than once a day During the past 4 weeks, how often did your asthma symptoms (wheezing, coughing, shortness of breath, chest tightness or pain) wake you up at night or earlier than usual in the morning? (1) 4 or morenights a week During the past 4 weeks, how often have you used your rescue inhaler or nebulizer medication (such as albuterol)? (3) 2 or 3 times per week How would you rate your asthma control during the past 4 weeks? (3) Somewhat controlled Total ACT Adult Score (range: 5 - 25) 11 (Poorly Controlled) Total ACT Child Score (range: 0 - 27) Incomplete documented in this encounter Plan of Treatment Scheduled Orders Name Type Priority Associated Diagnoses Orde r Schedule CT CHEST WO CONTRAST Medical Imaging Routine Lung nodule COPD, moderate (HCC) Expected: 04/25/2025, Expires: 05/24/2025 Health Maintenance Due Date Last Done Comments [...] Zoster Vaccines Completed 09/22/2020, 07/19/2020 Pneumococcal Vaccine: 65+ Years Completed 06/21/2023, 05/29/2021 Influenza Vaccine (FLU [...] this encounter Medical Devices Implanted Type Area Bpm Analyst Device Identifier Shelf Expiration Date Model / Serial / Lot Lens 23.5 Mx60e - [id number] - [id number] Implanted:Qty: 1 on 11/10/2022 by Jose E Leon DO at OR [facility] Right: Eye BAUSCH [employer] LOMB 09/17/2024 [id number]-66.5 / [id number] / [id number] Lens [id number] 12.5mm+23.50 - [id number] - [id number] Implanted:Qty: 1 on 11/24/2022 by Jose E Leon DO at OR [facility] Left: Eye BAUSCH & LOMB 10/17/2024 [id number] / [id number] / [id number] documented as of this encounter Visit Diagnoses Diagnosis Need for prophylactic vaccination and inoculation against influenza- Primary Lung nodule Solitary pulmonary nodule COPD, moderate (HCC) Chronic airway obstruction, not elsewhere classified documented in this encounter Advance Directives * [...] Discussed due to patient's condition Care Teams Civil Engineering Specialist Relationship Specialty Start Date End Date Zuly Rainey CRNP [address] [place] [address] PCP - General Nurse Practitioner 03/09/23 documented as of this encounter
--- OUTSIDE RECORDS SUMMARY | 2024-10-15 20:05 | External Medical Summary | Summary of Care ---
Author Name Unknown Organization [facility] Address [address] [facility] [place] [address] Phone [phone] Care Team Providers Care Film Painter Name Role Phone Zuly Rainey Primary Care Provider +1- [phone] Reason for Visit * Reason Onset Date Comments Follow Up 04/25/2024 Encounter Details Date Type Department Care Team (Late st Contact Info) Description 04/25/2024 Telephone Pulmonary Medicine Deshaun Davies [address] [place] [phone] Kostas Kruger MD [address] [place] [id number] Follow Up Allergies Active Allergy Reactions Criticality Noted Date Comments Albuterol Other (Please comment) 06/25/2010 Nausea, vomiting, high blood pressure Pollen 11/08/2022 documented as of this encounter (statuses as of 04/25/2024) Medications Medication Sig Dispensed Refills Start Date End Date Status Levalbuterol HCl 0.31 MG/3ML Inhalation Nebulization SolutionIndications: Moderate persistent asthma without complication Inhale 3 mL via nebulizer every 4 hours as needed for Wheezing. 360 mL 5 12/20/2022 Active hydrALAZINE HCl 10 MG Oral Tablet (Apresoline)Indicati ons:HTN, goal below 130/80 Take by mouth 3 times a day. 90 Tablet 5 12/20/2022 Active Metoprolol Succinate ER 25 MG Oral Tablet Extended Release 24 Hour (toPROL XL)Indications:HTN, goal below 130/80 1/2 tab every 8 hours 45 Tablet 5 12/20/2022 Active Fiasp FlexTouch 100 UNIT/ML Subcutaneous Solution Pen-injector INJECT 10 UNITS SUBQ WITH EACH MEAL. MAX DAILY DOSE IS 50 UNITS 01/12/2023 Active Tresiba FlexTouch 100 UNIT/ML Subcutaneous Solution Pen-injector INJECT 20 UNITS SUBQ AT BEDTIME. MAX 30 UNITS DAILY 01/17/2023 Active Refresh Optive 0.5-0.9 % Ophthalmic Solution (carboxymethylcell-g lycerin) Instill 1 Drop into both eyes in [...] Inhalation Aerosol Powder Breath Activated (Fluticasone Furoate-Vilanterol) Inhale 1 Puff by mouth in the [...] Respimat 2.5 MCG/ACT Inhalation Aerosol Solution (Tiotropium [place] Monohydrate) Inhale 2 Puffs by mouth in the morning. 1 Each 04/24/2024 05/24/2024 Active Hospital, Clinic, or Other Facility Administered [...] as of this encounter (statuses as of 04/25/2024) Active Problems Problem Noted Date Diagnosed Date [...] as of this encounter (statuses as of 04/25/2024) Resolved Problems Problem Noted Date Diagnosed Date Resolved Date CHF (congestive heart failure) 11/03/2022 08/24/2023 Chronic respiratory failure with hypoxia 11/03/2022 12/20/2022 Asthma, moderate persistent 11/03/2022 08/25/2023 Chronic bronchitis 04/14/2021 Overview: Significant asthma component. Acute respiratory distress s yndrome (ARDS) due to COVID-19 virus 04/14/2021 08/23/2023 Positive blood cultures 04/14/2021 03/0 10/2023 Overview: Coagulase-negative Staphylococcus sp (two types, one sensitive and one resistant). 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: hhperplastic polyp--repeat 10 years documented as of this encounter (statuses as of 04/25/2024) Immunizations Name Administration Dates Next Due Pneumococcal Conjugate Vacci ne, 20-valent ([id number]) 06/21/2023,11/03/2022(Deferred: Patient Refused) Pneumococcal Polysaccharide PPV23 (Pneumovax) [...] encounter Miscellaneous Notes * Telephone Encounter - Tania Nath OSA - 04/25/2024 10:45 AM EST Called pt to schedule ct scan LM to give us a call back documented in this encounter Plan of Treatment Health Maintenance Due Date Last Done Comments [...] this encounter Medical Devices Implanted Type Area Test Baker Device Identifier Shelf Expiration Date Model / Serial / Lot Lens 23.5 Mx60e - [id number] - [id number] Implanted:Qty: 1 on 11/10/2022 by Jose E Leon DO at OR [facility] Right: Eye BAUSCH & LOMB 09/17/2024 [id number]-38.5 / [id number] / [id number] Lens [id number] 12.5mm+23.50 - [id number] - [id number] Implanted:Qty: 1 on 11/24/2022 by Jose E Leon DO at OR [facility] Left: Eye BAUSCH & LOMB 10/17/2024 [id number] / [id number] / [id number] documented as of this encounter Advance Directives [...] Discussed due to patient's condition Care Teams Film Painter Relationship Specialty Start Date End Date Zuly Rainey CRNP [address] [place] [address] PCP - General Nurse Practitioner 03/09/23 documented as of this encounter
--- OUTSIDE RECORDS SUMMARY | 2024-10-15 20:05 | External Medical Summary | Summary of Care ---
Author Name Unknown Organization [facility] Address [address] [facility] [place] [address] Phone [phone] Care Team Providers Care Entry Driver Operator Name Role Phone Zuly Rainey Primary Care Provider +1- [phone] Reason for Visit * Reason Onset Date Comments Test Results 05/07/2024 CT Chest Encounter Details Date Type Department Care Team (Late st Contact Info) Description 05/07/2024 Telephone Pulmonary Medicine, [facility] [address] [facility] [place] [address] Kostas Kruger MD [address] [facility] [place] [id number] Test Results (CT Chest) Allergies Active Allergy Reactions Criticality Noted Date Comments Albuterol Other (Please comment) 06/25/2010 Nausea, vomiting, high blood pressure Pollen 11/08/2022 documented as of this encounter (statuses as of 05/07/2024) Medications Levalbuterol HCl 0.31 MG/3ML Inhalation Nebulization [...] for Wheezing. 360 mL 3 4 Active Spiriva Respimat 2.5 MCG/ACT Inhalation Aerosol Solution (Tiotropium [place] Monohydrate) Inhale 2 Puffs by mouth in the morning. 1 Each 4 05/24/20 24 Active Hospital, Clinic, or Other Facility Administered [...] as of this encounter (statuses as of 05/07/2024) Active Problems Problem Noted Date Diagnosed Date [...] as of this encounter (statuses as of 05/07/2024) Resolved Problems Problem Noted Date Diagnosed Date [...] as of this encounter (statuses as of 05/07/2024) Immunizations Name Administration Dates Next Due Pneumococcal Conjugate Vacci ne, 20-valent ([id number]) 06/21/2023,11/03/2022(Deferred: Patient Refused) Pneumococcal Polysaccharide PPV23 (Pneumovax) [...] encounter Miscellaneous Notes * Telephone Encounter - Jumana Lacey ANGELICA Ospina - 05/07/2024 7:19 AM EST ----- Message from Kostas Kruger MD sent at 05/06/2024 6:35 PM EST ----- CT Chest Without Contrast; Diagnostic Exam date and time: 04/17/2024 FINDINGS: Lungs: Bilateral ground-glass regions of opacification. Findings nonspecific however most likely reflect interstitial lung disease. 11 mm persistent nodule with coarse focus of calcification left lower lobe. Findings stable. 5 mm solid pulmonary nodule again identified in the right lower lobe (series 7 image number 63) findings stable. IMPRESSION: 1. Bilateral ground-glass regions of opacification. Findings nonspecific however most likely reflect interstitial lung disease. 2. Moderately severe emphysema. 3. 11 mm benign-appearing nodule left lower lobe. Findings stable. 4. Stable 5 mm pulmonary nodule right lower lobe. Chart note documented in this encounter Plan of Treatment [...] this encounter Medical Devices Implanted Type Area General Merchandise Salesperson Device Identifier Shelf Expiration Date Model / Serial / Lot Lens 23.5 Mx60e - [id number] - [id number] Implanted:Qty: 1 on 11/10/2022 by Jose E Leon, DO at OR [facility] Right: Eye BAUSCH & LOMB 09/17/2024 [id number]-72.5 / [id number] / [id number] Lens [id number] 12.5mm+23.50 - [id number] - [id number] Implanted:Qty: 1 on 11/24/2022 by Jose E Leon, DO at OR [facility] Left: Eye BAUSCH & LOMB 10/17/2024 [id number] / [id number] / [id number] documented as of this encounter Advance Directives [...] Discussed due to patient's condition Care Teams Entry Driver Operator Relationship Specialty Start Date End Date Zuly Rainey CRNP [address] [place] [address] PCP - General Nurse Practitioner 03/09/23 documented as of this encounter
--- OUTSIDE RECORDS SUMMARY | 2024-10-15 20:05 | External Medical Summary | Summary of Care ---
Author Name Unknown Organization [facility] Address [address] [facility] [place] [address] Phone [phone] Care Team Providers Care Sweatband Maker Name Role Phone Arcenio Galicia MD Primary Care Provider +1 -[phone] Reason for Visit * Reason Comments Follow Up * Precert (Within 10 days (routine)) - Authorized Specialty Diagnoses / Procedures Referred By Deb varner Referred To Contact Ophthalmology Diagnoses Type 2 diabetes mellitus with moderate nonproliferative diabetic retinopathy with macular edema, bilateral (HCC) Procedures KS INJECTION, FARICIMAB-SVOA, 0.1 MG KS INTRAVITREAL NJX PHARMACOLOGIC AGT SPX Constantin Marshall DO [address] [place] [address] Phone: tel: fax: Referral ID Status Reason Start Date Expiration Date V isits Requested Visits Authorized [id number] Authorized Precert 01/09/2024 01/07/2025 [id number] Encounter Details Date Type Department Care Team (Late st Contact Info) Description 08/13/2024 8:15 AM EST Office Visit Ophthalmology, [facility] [address] [place] [address] Constantin Marshall DO [address] [place] [address] Moderate nonproliferative diabetic retinopathy of both eyes [...] Next Due Pneumococcal Conjugate Vacci ne, 20-valent ([id number]) 06/21/2023,11/03/2022(Deferred: Patient Refused) Pneumococcal Polysaccharide PPV23 (Pneumovax) [...] - 08/13/2024 8:15 AM EST [facility] [place] [...] no edema/pallor/NVD macula: dme vessels: wnl periphery: photocopy operator, no RT/RD Dilated fundus exam OS: vitreous: clear optic nerve: 0.25, no edema/pallor/NVD macula: dme vessels: wnl periphery: photocopy operator, no RT/RD OCT Interpretation: OD: recurrent [...] Constantin Marshall DO Vabysmo 6mg lot # [id number] Exp. Date: 09/2025 * Merly Sam TECH [...] 7:30 AM EDT [facility] [address] [place] [address] Constantin Marshall, [address] [place] [address] Nurse Carol Boles [address] [place] [address] Photographer Crissy Boles [address] [place] [address] Scheduled Orders Name Type Priority Associated Diagnoses [...] this encounter Medical Devices Implanted Type Area Area Loss Prevention Manager Device Identifier Shelf Expiration Date Model / Serial / Lot Lens 23.5 Mx60e - [id number] - [id number] Implanted:Qty: 1 on 11/10/2022 by Jose E Leon DO at OR [facility] Right: Eye BAUSCH & LOMB 09/17/2024 [id number]-87.5 / [id number] / [id number] Lens [id number] 12.5mm+23.50 - [id number] - [id number] Implanted:Qty: 1 on 11/24/2022 by Jose E Leon DO at OR [facility] Left: Eye BAUSCH & LOMB 10/17/2024 [id number] / [id number] / [id number] documented as of this encounter Visit Diagnoses [...] Discussed due to patient's condition Care Teams Sweatband Maker Relationship Specialty Start Date End Date Arcenio Galicia MD [address] [place] [address] PCP - General Family Medicine 06/18/24 documented as of this encounter
[2024-10-15] MEDS: FORMOTEROL 20 MCG/2 ML VIAL NEB SCH (20:14)
[2024-10-15] MEDS: BUDESONIDE 0.5 MG/2 ML VIAL (PULMICORT) NEB SCH (20:14)
[2024-10-15] MEDS: IPRATROPIUM BROMIDE NEB SOLN 0.02% 0.5MG/2.5ML VIAL NEB SCH (20:15)
[2024-10-15] MEDS: METOPROLOL SUCC 25MG EXT REL TAB PO SCH (20:59)
[2024-10-15] MEDS: SILDENAFIL CITRATE 20 MG TABLET PO SCH (20:59)
[2024-10-15] MEDS ORDERED: guaiFENesin 600 MG TABCR PO SCH (21:00)
[2024-10-15] MEDS: ACETAMINOPHEN 325 MG TAB PO PRN (22:25)
[2024-10-15] MEDS: LANTUS PER UNIT CHARGE SQ SCH (22:25)
[2024-10-15] MEDS: HEPARIN SOD 5,000 UNIT/0.5 ML VIAL SQ SCH (22:26)
[2024-10-15] MEDS: INSULIN HUMAN REGULAR PER UNIT 4 UNITS in SYRINGE 3.96 ML IV ONE (23:07)
[2024-10-16] MEDS: LEVALBUTEROL 1.25 MG/3 ML NEB NEB SCH (00:09)
[2024-10-16 06:10] LABS: Hematocrit (blood only) 40.5 % (37.0-47.0); Hemoglobin 13.6 g/dl (12.0-16.0); Immature Granulocytes # (auto) 0.04 K/uL (0.01-0.20); Immature Granulocytes % (auto) 0.5 %; Lymphocytes # (auto) 0.72 K/uL (1.20-3.40); Mean Corpuscular Hemoglobin 30.2 pg (25.0-34.0); Mean Corpuscular Hgb Conc 33.6 g/dL (32.0-36.0); Mean Platelet Volume 10.7 fL (9.4-12.4); Monocytes # (auto) 0.09 K/uL (0.11-0.59); Monocytes % (auto) 1.1 %; Neutrophils # (auto) 7.17 K/uL (1.40-6.50); Neutrophils % (auto) 89.4 %; Platelet Count 323 K/uL (130-400); RDW Coefficient of Variation 13.7 % (11.5-14.5); RDW Standard Deviation 44.5 fL (36.4-46.3); White Blood Count 8.02 K/ul (4.8-10.8)
[2024-10-16 06:33] LABS: BUN Creatinine Ratio 23.1 (10-20); Calcium 8.7 mg/dl (8.6-10.3); Creatinine Clr Calc Pharmacy 84.9 ml/min; Potassium 4.2 mmol/L (3.5-5.1)
[2024-10-16 08:23] LABS: Estimated Average Glucose 249 mg/dl; Hemoglobin A1C 10.3 % (4.5-5.6)
[2024-10-16] MEDS: predniSONE 20 MG TAB PO SCH (08:34)
[2024-10-16] MEDS: LANTUS PER UNIT CHARGE SQ SCH ×2 (08:35→21:05)
[2024-10-16] MEDS ORDERED: methylPREDNISolone 125 MG/2 ML VIAL IV SCH (09:00)
[2024-10-16] MEDS ORDERED: methylPREDNISolone 40 MG in SYRINGE 0 ML IV SCH (09:00)
[2024-10-16] MEDS: traMADol HCL 50 MG TABLET PO PRN (10:00)
--- NOTE | 2024-10-16 13:01 | Hospitalist Progress Note ---
Date of Service October 16, 2024 Assessment & Plan (1) COPD (chronic obstructive pulmonary disease) with acute bronchitis: Plan Acute COPD exacerbation History of asthmaCOPD overlap Acute hypoxic respiratory failure -Patient presents with increasing shortness of breath for the last few days -No leukocytosis present -Chest x-rayno acute finding -BNP, ECG, troponins reassuring -COPD most likely diagnosis, less likely MD vs. other pathology given above Plan: -continue Levalbuterol and ipratropium nebs [id number], -continue budesonide and formoterol nebs twice daily -switch to PO prednisone, continue azithromycin -likely at baseline oxygenation, however patient feels very anxious/depressed and is likely cause of exacerbation -PT/OT evaluations #Adjustment Disorder #Grief -related to 2 family members passing in past year Plan: -start buspar 5 tid and can uptitrate as needed, stop xanax -start lexapro 10 mg daily in AM -psychology consult outpatient Type 2 diabetes mellitus continue on insulin Pulmonary hypertensionsildenafil continue OSAnoncompliant with CPAP I spent a total of 55 minutes in direct patient care, including [id number] time with the patient and/or family, reviewing medical records, ordering and reviewing diagnostic tests, and coordinating care with other healthcare providers. This time includes: history taking, physical examination, medical decision making, counseling, ECG interpretation, imaging interpretation, lab interpretation, orders, and education, excluding time spent in the performance of separately billed services. Admission and Anticipated Discharge Date Admission Date: October 15, 2024 Subjective Patient seen and examined at bedside. Patient is very anxious. States that her breathing is improved, but she is very anxious about everything going on with her. She feels weaker than normal. Is interested in treatment for anxiety, she has had 2 family members who have recently as well. Review of Systems Review of Systems: CONSTITUTIONAL: anxious EYES: Patient denies any visual symptoms. EARS, NOSE, AND THROAT: No difficulties with hearing. No symptoms of rhinitis or sore throat. CARDIOVASCULAR: Patient denies chest pains, palpitations, orthopnea and paroxysmal nocturnal dyspnea. RESPIRATORY: cough, some SOB GI: No nausea, vomiting, diarrhea, constipation, abdominal pain, hematochezia or melena. : No urinary hesitancy or dribbling. No nocturia or urinary frequency. No abnormal urethral discharge. MUSCULOSKELETAL: No myalgias or arthralgias. NEUROLOGIC: No chronic headaches, no seizures. Patient denies numbness, tingling or weakness. PSYCHIATRIC: Patient denies problems with mood disturbance. No problems with anxiety. ENDOCRINE: No excessive urination or excessive thirst. DERMATOLOGIC: Patient denies any rashes or skin changes. Physical Exam Physical Exam: Gen: A&O 3 NAD HEENT: NCAT, EOMI, not icteric. External ears normal. No rhinorrhea. Moist mucous membranes. Neck: Supple, full range of motion, no observable masses, No meningeal sign. Lungs: trace rhonchi bilaterally, mostly clear CV: RRR, no edema. Abdomen: Soft, nondistended, No rebound tenderness. MSK: No joint swelling, no redness. Skin: No rashes, petechiae, lesions. Normal color per patient. Neuro: Normal Gait, Grossly intact. Psych: very anxious, tearful Results & Data Results & Data Vital Signs (Past 12 Hours) Vital Signs Temp Pulse Pulse Resp BP Pulse Ox O2 Del Method 10/16/24 12:26 68 20 97 Nasal Cannula 10/16/24 11:22 36.7 C 86 18 155/85 H 95 Nasal Cannula 10/16/24 08:30 Nasal Cannula 10/16/24 08:01 36.8 C 82 18 122/70 97 Room Air 10/16/24 07:26 78 10/16/24 07:00 68 18 97 Nasal Cannula 10/16/24 03:29 36.7 C 85 20 123/75 96 Room Air O2 Flow Rate 10/16/24 12:26 2 10/16/24 11:22 2 10/16/24 08:30 2 10/16/24 08:01 10/16/24 07:26 10/16/24 07:00 2 10/16/24 03:29 Laboratory Results -personally reviewed, no leukocytosis, BNP and troponin low which is reassuring Medications Administered Acetaminophen (Acetaminophen 325 Mg Tab) 650 mg PO Q4H PRN PRN Reason: pain/fever Stop: 11/14/24 16:47 Last Admin: 10/16/24 06:01 Dose: 650 mg Documented By: Admin: 10/15/24 22:25 Dose: 650 mg Documented By: SYLVESTER Azithromycin (Azithromycin 250 Mg Tab) [facility] [place] Stop: 10/18/24 16:59 Last Admin: 10/16/24 10:00 Dose: 500 mg Documented By: Admin: 10/15/24 17:27 Dose: 500 mg Documented By: MARIE Budesonide (Budesonide 0.5 Mg/2 Ml Vial (Pulmicort)) 0.5 mg NEB BIDR NELL Stop: 11/14/24 18:59 Last Admin: 10/16/24 07:00 Dose: 0.5 mg Documented By: Admin: 10/15/24 20:14 Dose: 0.5 mg Documented By: KEYON Formoterol Fumarate (Formoterol 20 Mcg/2 Ml Vial) 20 mcg NEB BIDR [facility] Stop: 11/14/24 18:59 Last Admin: 10/16/24 07:00 Dose: 20 mcg Documented By: Admin: 10/15/24 20:14 Dose: 20 mcg Documented By: KEYON Guaifenesin/Dextromethorphan (Guaifenesin/Dextrom Syrup 100mg/10mg 5ml Udc) 5 ml PO Q6H PRN PRN Reason: Cough Stop: 11/14/24 17:09 Last Admin: 10/16/24 10:02 Dose: 5 ml Documented By: Admin: 10/15/24 19:55 Dose: 5 ml Documented By: MARIE Heparin Sodium (Porcine) (Heparin Sod 5,000 Unit/0.5 Ml Vial) 5,000 units SQ Q8 NELL Stop: 11/14/24 21:59 Last Admin: 10/16/24 05:57 Dose: 5,000 units Documented By: Admin: 10/15/24 22:26 Dose: 5,000 units Documented By: SYLVESTER Insulin Aspart (Insulin Aspart Per Unit Charge) 0 units SC ACHS NELL Stop: 11/14/24 17:14 Last Admin: 10/16/24 12:57 Dose: 16 units Documented By: CAL Co-signed By: FABIO Admin: 10/16/24 07:02 Dose: 7 units Documented By: SYLVESTER Co-signed By: FABIO Admin: 10/15/24 21:47 Dose: Not Given Documented By: Admin: 10/15/24 18:43 Dose: 10 units Documented By: MARIE Co-signed By: AMIE Insulin Glargine (Lantus Per Unit Charge) 20 units SQ HS NELL Stop: 11/14/24 20:59 Last Admin: 10/15/24 22:25 Dose: 20 units Documented By: SYLVESTER Co-signed By: AES Insulin Glargine (Lantus Per Unit Charge) 30 units SQ DAILY NELL Stop: 11/15/24 08:59 Last Admin: 10/16/24 08:35 Dose: 30 units Documented By: JOI Co-signed By: RRR Ipratropium [place] (Ipratropium [place] Neb Soln 0.02% 0.5mg/2.5ml Vial) 0.5 mg NEB Q6R [facility] Stop: 11/14/24 18:59 Last Admin: 10/16/24 12:26 Dose: 0.5 mg Documented By: Admin: 10/16/24 07:00 Dose: Not Given Documented By: Admin: 10/16/24 00:09 Dose: 0.5 mg Documented By: Admin: 10/15/24 20:15 Dose: Not Given Documented By: KEYON Levalbuterol HCl (Levalbuterol 1.25 Mg/3 Ml Neb) 1.25 mg NEB Q6R NELL Stop: 11/15/24 00:59 Last Admin: 10/16/24 12:26 Dose: 1.25 mg Documented By: Admin: 10/16/24 07:00 Dose: Not Given Documented By: Admin: 10/16/24 00:09 Dose: 1.25 mg Documented By: NAZIA Metoprolol Succinate (Metoprolol Succ 25mg Ext Rel Tab) 12.5 mg PO TID NELL Stop: 11/14/24 20:59 Last Admin: 10/16/24 08:34 Dose: 12.5 mg Documented By: Admin: 10/15/24 20:59 Dose: 12.5 mg Documented By: MARCUSJ Prednisone (Prednisone 20 Mg Tab) 40 mg PO DAILY [facility] Stop: 11/15/24 08:59 Last Admin: 10/16/24 08:34 Dose: 40 mg Documented By: JOI Sildenafil Citrate (Sildenafil Citrate 20 Mg Tablet) 10 mg PO TID NELL Stop: 11/14/24 20:59 Last Admin: 10/16/24 08:34 Dose: 10 mg Documented By: Admin: 10/15/24 20:59 Dose: 10 mg Documented By: ANGELA Tramadol HCl (Tramadol Hcl 50 Mg Tablet) 50 mg PO Q4H PRN PRN Reason: pain Stop: 11/14/24 20:04 Last Admin: 10/16/24 10:00 Dose: 50 mg Documented By: CAL
[2024-10-16] MEDS: INSULIN HUMAN REGULAR PER UNIT 4 UNITS in SYRINGE 3.96 ML IV ONE (13:37)
--- NOTE | 2024-10-16 13:47 | Pharmacy Report ---
Pharmacy Glycemic Short Note 2 - Date of Service October 16, 2024 - Glycemic Short BSG Results (Last 24 hours): 10/15/24 10/15/24 10/15/24 13:48 17:30 21:39 Glucose 188 H POC Glucose 281 H 401 H* 10/15/24 10/16/24 10/16/24 21:44 05:24 08:24 Glucose 333 H* POC Glucose 429 H* 297 H 10/16/24 10/16/24 12:02 12:03 Glucose POC Glucose 302 H* 296 H OUTPATIENT ANTIDIABETIC REGIMEN: * Tresiba 20 units SQ HS * Fiasp 10 units SQ TIDM * HbA1c 10.3% (10/16/24) ASSESSMENT: * Zaira is a 68 year old female admitted with a COPD exacerbation and a history of type 2 diabetes mellitus. Pharmacy has been consulted to assist with glycemic management while inpatient. * Admission BSG elevated, received methylprednisolone 125mg IV x1 upon admission, home Lantus dose given yesterday evening. BSGs continually elevated into the morning. Steroids changed to prednisone 40mg this AM. * Lantus ~0.4units/kg given this morning to help cover steroid induced hyperglycemia. BSGs still elevated at lunchtime. Will give a small one time IV regular bolus in addition to lunch coverage and correction. Consider NPH with predisone tomorrow due to elevated post-prandials. Will do a Lantus scale at bedtime in case BSGs significantly decrease and a dose reduction is needed. * NovoLog tightened significantly based on outpatient requirements and stressed based on recently elevated A1c PLAN FOR INPATIENT GLYCEMIC CONTROL: * Hold outpatient oral diabetes medications * Basal insulin * Lantus 30 units SQ QAM * Lantus 0-30 units SQ HS based on BSG (see eMAR for additional details) * Bolus insulin * NovoLog per scale ACHS or Q6hrs while NPO * Goal Range: Low 110 mg/dL - High 140 mg/dL * Correction Factor: 15 mg/dL/unit * Nutritional / Prandial insulin per carb ratio of 1 unit per 5 grams CHO consumed
[2024-10-16] MEDS: busPIRone 5 MG TAB PO SCH (14:36)
[2024-10-17 07:58] LABS: Hematocrit (blood only) 41.1 % (37.0-47.0); Hemoglobin 13.7 g/dl (12.0-16.0); Mean Corpuscular Hgb Conc 33.3 g/dL (32.0-36.0); Mean Corpuscular Volume 90.1 fL (80.0-100.0); Mean Platelet Volume 10.3 fL (9.4-12.4); Platelet Count 355 K/uL (130-400); RDW Coefficient of Variation 13.9 % (11.5-14.5); RDW Standard Deviation 45.9 fL (36.4-46.3); Red Blood Count 4.56 M/uL (4.20-5.40); White Blood Count 15.86 K/ul (4.8-10.8)
[2024-10-17 08:36] LABS: BUN Creatinine Ratio 26.5 (10-20); Calcium 8.8 mg/dl (8.6-10.3); Creatinine Clr Calc Pharmacy 81.1 ml/min; Potassium 3.9 mmol/L (3.5-5.1)
[2024-10-17] MEDS: ESCITALOPRAM OXALATE 10 MG TAB PO SCH (08:49)
[2024-10-17] MEDS: LANTUS PER UNIT CHARGE SC SCH (11:36)
--- NOTE | 2024-10-17 13:28 | Pharmacy Report ---
Pharmacy Glycemic Short Note 2 - Date of Service October 17, 2024 - Glycemic Short BSG Results (Last 24 hours): 10/16/24 10/16/24 10/17/24 17:06 20:36 07:33 Glucose 104 H POC Glucose 269 H 240 H 10/17/24 10/17/24 08:07 12:06 Glucose POC Glucose 97 101 H OUTPATIENT ANTIDIABETIC REGIMEN: * Tresiba 20 units SQ HS * Fiasp 10 units SQ TIDM * HbA1c 10.3% (10/16/24) ASSESSMENT: 10/17 * Zaira received 90 units of insulin yesterday (60 were basal, 4 units IV regular bolus) * Fasting BSG this AM slightly below goal range, reduce AM Lantus ~30%, deferred using insulin NPH with AM with prednisone due to rapid decrease in BSG values overnight. Will continue a scale at bedtime but reduced to a total daily dose of max 20% lower than yesterday * NovoLog tightened again this AM, will loosen some due to tightly controlled BSGs now. 10/16 * Zaira is a 68 year old female admitted with a COPD exacerbation and a history of type 2 diabetes mellitus. Pharmacy has been consulted to assist with glycemic management while inpatient. * Admission BSG elevated, received methylprednisolone 125mg IV x1 upon admission, home Lantus dose given yesterday evening. BSGs continually elevated into the morning. Steroids changed to prednisone 40mg this AM. * Lantus ~0.4units/kg given this morning to help cover steroid induced hyperglycemia. BSGs still elevated at lunchtime. Will give a small one time IV regular bolus in addition to lunch coverage and correction. Consider NPH with predisone tomorrow due to elevated post-prandials. Will do a Lantus scale at bedtime in case BSGs significantly decrease and a dose reduction is needed. * NovoLog tightened significantly based on outpatient requirements and stressed based on recently elevated A1c PLAN FOR INPATIENT GLYCEMIC CONTROL: * Hold outpatient oral diabetes medications * Basal insulin * Lantus 20 units SQ QAM with prednisone * Lantus 0-30 units SQ HS based on BSG (see eMAR for additional details) * Bolus insulin * NovoLog per scale ACHS or Q6hrs while NPO * Goal Range: Low 110 mg/dL - High 140 mg/dL * Correction Factor: 20 mg/dL/unit * Nutritional / Prandial insulin per carb ratio of 1 unit per 6 grams CHO consumed
--- NOTE | 2024-10-17 14:35 | Hospitalist Progress Note ---
Date of Service October 17, 2024 Assessment & Plan (1) COPD (chronic obstructive pulmonary disease) with acute bronchitis: Plan Acute COPD exacerbation History of asthmaCOPD overlap Acute hypoxic respiratory failure -Patient presents with increasing shortness of breath for the last few days -No leukocytosis present -Chest x-rayno acute finding -BNP, ECG, troponins reassuring at presentation. -COPD most likely diagnosis, less likely [place] vs. other pathology given above Plan: -continue Levalbuterol and ipratropium nebs [id number], -continue budesonide and formoterol nebs twice daily -c/w PO prednisone, continue azithromycin -likely at baseline oxygenation, however patient feels very anxious/depressed and is likely cause of exacerbation -PT/OT evaluations Chest pressure ro ACS, ro cardiomyopathy: pt reports feeling chest pressure since she lost her son in mid August, it is exacerbated with activity per patient, preeti worse today. Troponin elevated today, EKG with no acute ST or T changes. Will trend troponin, get echo, cardiology consult. Continue with telemonitoring. #Adjustment Disorder #Grief -related to 2 family members passing in past year Plan: -started buspar 5 tid and can uptitrate as needed, stopped xanax --> c/w buspar -started lexapro 10 mg daily in AM -- c/w lexapro. -psychology consult outpatient Type 2 diabetes mellitus continue on insulin Pulmonary hypertensionsildenafil continue OSAnoncompliant with CPAP Admission and Anticipated Discharge Date Admission Date: October 15, 2024 Subjective Patient seen and examined at bedside. Patient is very anxious and tearful. Reports her chest pressure is slightly worse today that other days. She feels weaker than normal and tired, reports eating ok and having multiple loose stools a day for few months. Physical Exam Physical Exam: Gen: A&O 3 NAD HEENT: NCAT, EOMI, not icteric. External ears normal. No rhinorrhea. Moist mucous membranes. Neck: Supple, full range of motion, no observable masses, No meningeal sign. Lungs: rhonchi bilaterally CV: RRR, no edema. Abdomen: Soft, nondistended, No rebound tenderness. MSK: No joint swelling, no redness. Skin: No rashes, petechiae, lesions. Normal color per patient. Neuro: Normal Gait, Grossly intact. Psych: very anxious, tearful Results & Data Results & Data Vital Signs (Past 12 Hours) Vital Signs Temp Pulse Pulse Resp BP Pulse Ox O2 Del Method 10/17/24 12:22 16 98 Nasal Cannula 10/17/24 11:05 36.6 C 92 H 16 134/76 99 Room Air 10/17/24 08:44 36.4 C L 81 20 141/77 H 95 Nasal Cannula 10/17/24 07:21 76 16 90 Room Air 10/17/24 07:01 71 10/17/24 04:18 37.2 C 81 20 137/81 92 Room Air O2 Flow Rate 10/17/24 12:22 2 10/17/24 11:05 10/17/24 08:44 2 10/17/24 07:21 10/17/24 07:01 10/17/24 04:18
--- NOTE | 2024-10-17 14:44 | Cardiology Consultation ---
Date of Consultation October 17, 2024 Assessment & Plan (1) Atypical chest pain: (2) Elevated troponin: (3) Acute exacerbation of chronic obstructive pulmonary disease: (4) Class 3 obesity: (5) Grief reaction: Plan 68-year-old female with longstanding pulmonary issues chronic chronic obstructive lung disease with past pulmonary hypertension on vasodilator therapy and home O2 admitted with COPD exacerbation. Several day history of worsening cough wheezing and shortness of breath unresponsive to increasing oxygen at home. Has responded initially with antibiotics and bronchodilators in hospital though with intermittent atypical chest pain with sharp jabbing the chest as well as sense of generalized ache. EKGs and echocardiogram without signs of myocardial injury or ischemia. Troponins however elevated Impression: Suspect elevated troponin secondary to acute demand issues of COPD exacerbation and superimposed grief reaction. Initial evaluations without signs of ischemia by EKG and echo. Atypical symptoms on description. Recommendations: Optimize medical therapies. Lab work ordered to assess lipid panel and TSH. Increase metoprolol succinate to 25 mg twice per day from 12.5 mg 3 times daily. Add spironolactone 12.5 mg p.o. daily for chronic diastolic dysfunction. EKG in a.m. n.p.o. after midnight and reassess in a.m. Note nitrates contraindicated History of Present Illness Reason for Consultation: Atypical chest pain, elevated troponin Requesting Physician: Dr. Vincent Attending Physician: Jean Vincent MD History of Present Illness Patient is an 68-year-old female with prior medical concerns which include 1. Chronic obstructive lung disease with past pulmonary hypertension on home oxygen, vasodilator therapy 2. Hypertension 3. Obstructive sleep apnea 4. Obesity 5. Type 2 diabetes mellitus with peripheral neuropathy Patient presents this admission noting increasing difficulties with dyspnea wheezing and cough several days prior to admission symptoms not responsive to increased oxygen use at home. Symptoms superimposed on acute grief reaction from loss of 2 children in the last year. Patient sought ER evaluation due to increasing dyspnea. Patient notes since in hospital has been having intermittent sharp jabbing pains in the left side of chest. With a vague ache. Symptoms very transient in nature. Not specifically in relationship to exertion. No tachypalpitations syncope or near syncope. No orthopnea or worsening peripheral edema. To evaluate symptoms patient underwent troponin and EKG today EKG demonstrated no changes to suggest ischemia. Cardiac enzymes elevated with repeat trending. Patient referred now for further evaluation Patient denies prior history of myocardial infarction, angina or congestive heart failure. Did have prior right heart catheterization in the setting of acute COVID induced pulmonary hypertension per patient report Currently emotionally distraught but without acute chest pain Allergies Allergy/AdvReac Type Severity Reaction Status Date / Time No Known Allergies Allergy Unknown Verified 03/09/23 09:54 Home Medications Medication Instructions Recorded Confirmed Type metoprolol succinate 25 mg 12.5 mg (1/2 x 25 mg) PO TID #0 04/22/21 10/15/24 Rx tablet,extended release 24 hr tabs nebulizer accessories #1 ea 01/21/22 11/05/22 Rx nebulizer and compressor #1 ea 01/21/22 11/05/22 Rx CPAP Machine #1 ea 05/18/22 08/04/22 Rx CPAP Supplies #1 ea 05/18/22 08/04/22 Rx levalbuterol HCl 1.25 mg/3 mL 1.25 mg NEB Q4H PRN asthma/copd 08/04/22 10/15/24 History solution for nebulization arformoterol 15 mcg/2 mL solution 2 ml inhalation UD PRN asthma/copd 11/05/22 10/15/24 History for nebulization (Brovana) fluticasone 250 mcg-salmeterol 50 1 inh inhalation UD PRN asthma/copd 11/05/22 10/15/24 History mcg/dose blistr powdr for inhalation (Advair Diskus) furosemide 20 mg tablet (Lasix) 40 mg PO UD PRN Edema 11/05/22 10/15/24 History blood-glucose sensor (FreeStyle #2 ea 01/06/23 Rx Ling 3 Sensor device) albuterol sulfate 90 mcg/actuation 2 inh inhalation QID PRN 03/09/23 10/15/24 History aerosol inhaler asthma/copd sildenafil (pulm.hypertension) 20 10 mg PO TID 03/09/23 10/15/24 History mg tablet (Revatio) tramadol 50 mg tablet 50 mg PO Q4H PRN pain #15 tabs 06/01/23 10/15/24 Rx Tresiba FlexTouch U-100 100 20 unit (0.2 mL) subcut HS #30 mL 07/11/23 10/15/24 Rx unit/mL (3 mL) subcutaneous pen (insulin degludec) insulin aspart 10 unit subcut TIDM #30 mL 07/11/23 10/15/24 Rx (niacinamide)(U-100) 100 unit/mL(3 mL) subcutaneous pen (Fiasp FlexTouch U-100 Insulin) Patient History Medical History Sleep apnea inconsistent use/toleration issues. Nausea and vomiting after administration of anesthetic agent Neuropathy legs/stimular for right side/doesn't work battery is . Diabetic retinopathy injections for / most recent 3 wks ago/upcoming Mar 18 2023. Chronic cough no change in baseline. Oxygen deficiency o2 2-3L prn. Last need of oxygen September 2022. baseline oxygen sat 88 %, recently been in the s. COPD (chronic obstructive pulmonary disease) denies recent flares. Asthma last use rescue inhler 1 wk or so ago. Denies recent flares. HTN (hypertension) Type 2 diabetes mellitus History of fracture of leg Right femoral condyle fracture 2021/no sx intervention as of current/knee replacement was advised. B12 deficiency hx History of COVID-19 Pneumonia with ARDS in 2020, 3 months hospitalization, shorter hospitalization in 2022. Surgical History History of cataract surgery right and left. History of bilateral breast reduction surgery History of surgery stimulator placement. History of x2 History of back surgery History of hysterectomy History of colonoscopy Family History Father Stroke Heart disease Cancer skin Mother Breast cancer Grandmother (Paternal) Breast cancer Social History Smoking Status: Former smoker Tobacco Type: Cigarettes Smoking End Date: 30 years ago; Second Hand Exposure: No; Do You Dip or Chew Tobacco: No; Tobacco Cessation Education Requested by Patient: No Hx Alcohol Use: Yes Alcohol type: beer Hx Substance Use: No Preferred Language: Azeri Communication Ability: Effective Sharepoint Architect Required: No Beliefs That Will Affect Care: None Current Living Situation: Spouse Current Living Situation Comment: daughter (handicap) Other Information That Helps Us Care for You: No Feels Safe at Home: Yes Safety Concerns: Feels Safe At This Time Assistive Devices: Cane, Oxygen - Continuous and Walker Assistive Devices Comment: dog ate/broke glasses Review of Systems Review of Systems: All systems reviewed & are unremarkable except as noted in HPI & below Physical Exam Constitutional: + obese; no acute distress Eyes: PERRL, conjunctivae normal, anicteric sclerae ENMT: external ear and nose normal, oropharynx normal Neck: trachea midline, no thyromegaly Respiratory: Auscultation: + crackles and + wheezes Cardiovascular: Rate/Rhythm: regular rate and regular rhythm Heart Sounds: normal S1, normal S2 and + murmur (Grade 1/6 systolic murmur no diastolic) Vessels: no JVD Extremities: no edema Gastrointestinal (Abdomen): normal bowel sounds, soft, nontender, no hepatosplenomegaly Musculoskeletal: no cyanosis or clubbing, extremities motor strength 5/5 Results & Data Vital Signs (Past 12 Hours) Vital Signs Temp Pulse Pulse Resp BP Pulse Ox O2 Del Method 10/17/24 12:22 16 98 Nasal Cannula 10/17/24 11:05 36.6 C 92 H 16 134/76 99 Room Air 10/17/24 08:44 36.4 C L 81 20 141/77 H 95 Nasal Cannula 10/17/24 07:21 76 16 90 Room Air 10/17/24 07:01 71 10/17/24 04:18 37.2 C 81 20 137/81 92 Room Air O2 Flow Rate 10/17/24 12:22 2 10/17/24 11:05 10/17/24 08:44 2 10/17/24 07:21 10/17/24 07:01 10/17/24 04:18 Laboratory Results Laboratory Results - last 24 hr 10/16/24 10/16/24 10/17/24 17:06 20:36 07:33 WBC 15.86 H RBC 4.56 Hgb 13.7 Hct 41.1 MCV 90.1 MCH 30.0 MCHC 33.3 RDW Std Deviation 45.9 RDW Coeff of Ralf 13.9 Plt Count 355 MPV 10.3 Sodium 139 Potassium 3.9 Chloride 104 Carbon Dioxide 28 Anion Gap 7 BUN 18 Creatinine 0.68 Est Cr Clr Drug Dosing 81.1 eGFR 94.81 BUN/Creatinine Ratio 26.5 H Glucose 104 H POC Glucose 269 H 240 H Calcium 8.8 Troponin I High Sens 10/17/24 10/17/24 10/17/24 08:07 10:17 12:06 WBC RBC Hgb Hct MCV MCH MCHC RDW Std Deviation RDW Coeff of Ralf Plt Count MPV Sodium Potassium Chloride Carbon Dioxide Anion Gap BUN Creatinine Est Cr Clr Drug Dosing eGFR BUN/Creatinine Ratio Glucose POC Glucose 97 101 H Calcium Troponin I High Sens 214.4 H* D 10/17/24 12:09 WBC RBC Hgb Hct MCV MCH MCHC RDW Std Deviation RDW Coeff of Ralf Plt Count MPV Sodium Potassium Chloride Carbon Dioxide Anion Gap BUN Creatinine Est Cr Clr Drug Dosing eGFR BUN/Creatinine Ratio Glucose POC Glucose Calcium Troponin I High Sens 157.7 H* D Diagnostic Findings Laboratory Results - last 24 hr 10/16/24 10/16/24 10/17/24 17:06 20:36 07:33 WBC 15.86 H RBC 4.56 Hgb 13.7 Hct 41.1 MCV 90.1 MCH 30.0 MCHC 33.3 RDW Std Deviation 45.9 RDW Coeff of Ralf 13.9 Plt Count 355 MPV 10.3 Sodium 139 Potassium 3.9 Chloride 104 Carbon Dioxide 28 Anion Gap 7 BUN 18 Creatinine 0.68 Est Cr Clr Drug Dosing 81.1 eGFR 94.81 BUN/Creatinine Ratio 26.5 H Glucose 104 H POC Glucose 269 H 240 H Calcium 8.8 Troponin I High Sens 10/17/24 10/17/24 10/17/24 08:07 10:17 12:06 WBC RBC Hgb Hct MCV MCH MCHC RDW Std Deviation RDW Coeff of Ralf Plt Count MPV Sodium Potassium Chloride Carbon Dioxide Anion Gap BUN Creatinine Est Cr Clr Drug Dosing eGFR BUN/Creatinine Ratio Glucose POC Glucose 97 101 H Calcium Troponin I High Sens 214.4 H* D 10/17/24 12:09 WBC RBC Hgb Hct MCV MCH MCHC RDW Std Deviation RDW Coeff of Ralf Plt Count MPV Sodium Potassium Chloride Carbon Dioxide Anion Gap BUN Creatinine Est Cr Clr Drug Dosing eGFR BUN/Creatinine Ratio Glucose POC Glucose Calcium Troponin I High Sens 157.7 H* D ECG Additional Comments: EKG 10/17/2024: Normal sinus rhythm with voltage criteria for left hypertrophy. No acute changes from prior studies with prior noted poor R wave progression precordial leads.
[2024-10-17] MEDS: SPIRONOLACTONE 12.5 MG TAB PO SCH (16:18)
[2024-10-17] MEDS: traMADol HCL 50 MG TABLET PO PRN (16:18)
[2024-10-17] MEDS: METOPROLOL SUCC 25MG EXT REL TAB PO SCH (21:01)
[2024-10-18 07:24] LABS: Chol HDL Ratio 3.8 (0-5)
[2024-10-18 07:40] LABS: Thyroid Stimulating Hormone 1.429 uIu/ml (0.300-4.500)
--- NOTE | 2024-10-18 09:00 | Electrocardiogram Report ---
Test Reason : Blood Pressure : */* mmHG Vent. Rate : 79 BPM Atrial Rate : 79 BPM P-R Int : 154 ms QRS Dur : 70 ms QT Int : 362 ms P-R-T Axes : 36 -12 9 degrees QTcB Int : 415 ms Normal sinus rhythm Cannot rule out Anterior infarct , age undetermined Abnormal ECG When compared with ECG of 03-Aug-2022 23:43, No significant change was found Confirmed by Edward Siddiqi ([id number]) on 10/18/2024 9:00:30 AM Referred By: Confirmed By: Edward Siddiqi
[2024-10-18 09:31] LABS: Hematocrit (blood only) 40.1 % (37.0-47.0); Hemoglobin 13.9 g/dl (12.0-16.0); Mean Corpuscular Hemoglobin 32.7 pg (25.0-34.0); Mean Corpuscular Hgb Conc 34.7 g/dL (32.0-36.0); Mean Corpuscular Volume 94.4 fL (80.0-100.0); Mean Platelet Volume 11.1 fL (9.4-12.4); Platelet Count 364 K/uL (130-400); RDW Coefficient of Variation 15.2 % (11.5-14.5); RDW Standard Deviation 48.2 fL (36.4-46.3); Red Blood Count 4.25 M/uL (4.20-5.40)
[2024-10-18 09:37] LABS: Calcium 8.8 mg/dl (8.6-10.3); Creatinine Clr Calc Pharmacy 75.3 ml/min; Magnesium 2.1 mg/dl (1.7-2.4); Phosphorus 4.1 mg/dl (2.5-4.9); Potassium 4.2 mmol/L (3.5-5.1)
[2024-10-18] MEDS ORDERED: SODIUM CHLORIDE 0.65% NA SOLN 45 ML (OCEAN) PRN (09:46)
--- NOTE | 2024-10-18 09:49 | Electrocardiogram Report ---
Test Reason : Blood Pressure : */* mmHG Vent. Rate : 76 BPM Atrial Rate : 76 BPM P-R Int : 156 ms QRS Dur : 70 ms QT Int : 370 ms P-R-T Axes : 28 -5 2 degrees QTcB Int : 416 ms Normal sinus rhythm Minimal voltage criteria for LVH, may be normal variant Borderline ECG When compared with ECG of 15-Oct-2024 12:34, (unconfirmed) No significant change was found Confirmed by Edward Siddiqi ([id number]) on 10/18/2024 9:48:59 AM Referred By: REFERRED SELF Confirmed By: Edward Siddiqi
[2024-10-18] MEDS: PANTOprazole 40 MG TAB PO SCH (10:21)
--- NOTE | 2024-10-18 10:37 | Cardiology Progress Note ---
Date of Service October 18, 2024 Assessment & Plan (1) Atypical chest pain: (2) Elevated troponin: (3) Acute exacerbation of chronic obstructive pulmonary disease: (4) Class 3 obesity: (5) Grief reaction: Plan 68-year-old female with longstanding pulmonary issues chronic chronic obstructive lung disease with past pulmonary hypertension on vasodilator therapy and home O2 admitted with COPD exacerbation. Several day history of worsening cough wheezing and shortness of breath unresponsive to increasing oxygen at home. Has responded initially with antibiotics and bronchodilators in hospital though with intermittent atypical chest pain with sharp jabbing the chest as well as sense of generalized ache. EKGs and echocardiogram without signs of myocardial injury or ischemia. Troponins however elevated Impression: Suspect elevated troponin secondary to acute demand issues of COPD exacerbation and superimposed grief reaction. Initial evaluations without signs of ischemia by EKG and echo. Atypical symptoms on description. Recommendations: Optimize medical therapies. Lab work ordered to assess lipid panel and TSH. Increase metoprolol succinate to 25 mg twice per day from 12.5 mg 3 times daily. Add spironolactone 12.5 mg p.o. daily for chronic diastolic dysfunction. EKG in a.m. n.p.o. after midnight and reassess in a.m. Note nitrates contraindicated 10/18/2024 Complex 68-year-old female admitted with worsening dyspnea and cough. Concerns raised regarding possible cardiac etiology though echocardiogram and EKGs unchanged. Troponins elevated likely reflecting demand ischemia. Exam today with worsening wheeze and cough, increased dyspnea Beta-seven increased slightly yesterday for rate control. Good result though will need to follow closely for bronchospastic exacerbation. Pulmonary medications increasing. Would continue spironolactone. Patient may require dose of IV furosemide as well. I's and O's uncertain Portable chest x-ray ordered Admission and Anticipated Discharge Date Admission Date: October 15, 2024 Subjective Patient seen and examined, chart, medications, telemetry reviewed. More breathless overnight with diffuse wheezing and cough. No chest pains or discomfort. No tachypalpitations. Still tearful but improved. EKG this morning unchanged with no evidence of ischemia. Troponins flat Review of Systems Review of Systems: All systems reviewed & are unremarkable except as noted in Subjective Physical Exam Constitutional: + obese; no acute distress Eyes: PERRL, conjunctivae normal, anicteric sclerae ENMT: external ear and nose normal, oropharynx normal Neck: trachea midline, no thyromegaly Respiratory: Auscultation: + crackles and + wheezes Cardiovascular: Rate/Rhythm: regular rate and regular rhythm Heart Sounds: normal S1, normal S2 and + murmur (Grade 1/6 systolic murmur no diastolic) Vessels: no JVD Extremities: no edema Gastrointestinal (Abdomen): normal bowel sounds, soft, nontender, no hepatosplenomegaly Musculoskeletal: no cyanosis or clubbing, extremities motor strength 5/5 Results & Data Vital Signs (Past 12 Hours) Vital Signs Temp Pulse Resp BP Pulse Ox O2 Del Method O2 Flow Rate 10/18/24 08:07 36.4 C L 65 18 141/84 H 99 Nasal Cannula 2 10/18/24 07:36 63 18 99 Nasal Cannula 2 10/18/24 04:00 36.3 C L 65 20 115/75 96 Nasal Cannula 2 10/17/24 23:57 36.4 C L 65 20 137/85 96 Nasal Cannula 2 Laboratory Results Laboratory Results - last 24 hr 10/17/24 10/17/24 10/17/24 10:17 12:06 12:09 WBC RBC Hgb Hct MCV MCH MCHC RDW Std Deviation RDW Coeff of Ralf Plt Count MPV Sodium Potassium Chloride Carbon Dioxide Anion Gap BUN Creatinine Est Cr Clr Drug Dosing eGFR BUN/Creatinine Ratio Glucose POC Glucose 101 H Calcium Phosphorus Magnesium Troponin I High Sens 214.4 H* D 157.7 H* D Triglycerides Cholesterol LDL Cholesterol, Calc VLDL Cholesterol, Calc HDL Cholesterol Cholesterol/HDL Ratio TSH 10/17/24 10/17/24 10/17/24 17:11 18:22 20:46 WBC RBC Hgb Hct MCV MCH MCHC RDW Std Deviation RDW Coeff of Ralf Plt Count MPV Sodium Potassium Chloride Carbon Dioxide Anion Gap BUN Creatinine Est Cr Clr Drug Dosing eGFR BUN/Creatinine Ratio Glucose POC Glucose 230 H 212 H Calcium Phosphorus Magnesium Troponin I High Sens 112.9 H* D Triglycerides Cholesterol LDL Cholesterol, Calc VLDL Cholesterol, Calc HDL Cholesterol Cholesterol/HDL Ratio TSH 10/18/24 10/18/24 10/18/24 00:39 05:46 05:51 WBC 12.90 H RBC 4.25 Hgb 13.9 Hct 40.1 MCV 94.4 MCH 32.7 MCHC 34.7 RDW Std Deviation 48.2 H RDW Coeff of Ralf 15.2 H Plt Count 364 MPV 11.1 Sodium 139 Potassium 4.2 Chloride 104 Carbon Dioxide 31 Anion Gap 4 BUN 17 Creatinine 0.74 Est Cr Clr Drug Dosing 75.3 eGFR 88.07 BUN/Creatinine Ratio 23.0 H Glucose 83 POC Glucose Calcium 8.8 Phosphorus 4.1 Magnesium 2.1 Troponin I High Sens 122.2 H* Triglycerides 160 H Cholesterol 223 H LDL Cholesterol, Calc 132 VLDL Cholesterol, Calc 32 H HDL Cholesterol 59 Cholesterol/HDL Ratio 3.8 TSH 1.429 10/18/24 08:47 WBC RBC Hgb Hct MCV MCH MCHC RDW Std Deviation RDW Coeff of Ralf Plt Count MPV Sodium Potassium Chloride Carbon Dioxide Anion Gap BUN Creatinine Est Cr Clr Drug Dosing eGFR BUN/Creatinine Ratio Glucose POC Glucose 82 Calcium Phosphorus Magnesium Troponin I High Sens Triglycerides Cholesterol LDL Cholesterol, Calc VLDL Cholesterol, Calc HDL Cholesterol Cholesterol/HDL Ratio TSH
--- NOTE | 2024-10-18 11:12 | CT Scan Report ---
CT head/brain wo con CLINICAL HISTORY: frontal headache. TECHNIQUE: Multiple axial CT images of the head were obtained without contrast. Sagittal and coronal reconstructions were done. A dose lowering technique was utilized adhering to the principles of ALARA . CT DOSE: 765.10mGy*cm COMPARISON: None FINDINGS: There is no intra-axial or extra-axial fluid collection, hemorrhage, or mass. The ventricle s and sulci are moderately pronounced most likely due to senescent change. There is diminished attenu ation of periventricular white matter that is most commonly associated with small vessel insufficienc y. The bone windows demonstrate a developmentally prominent gail vikash which is likely incidental. IMPRESSION: No acute intracranial findings. ACT 112: Negative or not required by law. The above report was generated using voice recognition software. It may contain grammatical, syntax o r spelling errors. Electronically signed by: Marcy Ojeda M.D. 10/18/2024 11:11 AM
--- NOTE | 2024-10-18 11:19 | XRay Report ---
XR chest 1V portable CLINICAL HISTORY: Worsening dyspnea COMPARISON STUDY: 10/15/2024 FINDINGS: Progressive airspace opacity has developed in the right lung base. Lung skinner are otherwis e unchanged. Cardiomegaly and pulmonary vascular congestion is noted. Interstitial lung markings are remain pronounced. There is a right jugular venous catheter with the tip in the superior vena cava as previously noted. IMPRESSION: Progressive airspace opacity right lung base. ACT 112: Negative or not required by law. Electronically signed by: Marcy Ojeda M.D. 10/18/2024 11:17 AM
--- NOTE | 2024-10-18 11:29 | CT Scan Report ---
CT facial bones wo con CLINICAL HISTORY: 68 years-old Female presenting with maxillary and sinus pressure, ro sinusitis. COMPARISON STUDY: Head CT of same day TECHNIQUE: High-resolution CT scan of the facial bones is performed. Images are reviewed in the axia l, sagittal, and coronal planes. IV contrast was not administered for this examination. A dose lower ing technique was utilized adhering to the principles of ALARA. CT DOSE: 765.1 mGy.cm FINDINGS: There is no evidence of facial bone fracture. The bony orbits are intact and the orbital contents are within normal limits. The zygomatic arches, nasal bones, and pterygoid plates are preserved. The max illa and mandible are intact. Numerous dental caries with periapical cysts and missing teeth. The paranasal sinuses and mastoid air cells are clear. Degenerative changes of the cervical spine. Th e head CT is dictated separately. IMPRESSION: 1. No acute facial bone fracture. 2. No significant paranasal sinus disease. 3. Multifocal odontogenic disease. ACT 112: Negative or not required by law. The above report was generated using voice recognition software. It may contain grammatical, syntax o r spelling errors. Electronically signed by: Jessee Llamas M.D. 10/18/2024 11:27 AM
[2024-10-18] MEDS: methylPREDNISolone 40 MG in SYRINGE 0 ML IV SCH (11:36)
[2024-10-18] MEDS: methylPREDNISolone 125 MG/2 ML VIAL IV SCH (11:42)
[2024-10-18] MEDS: LANTUS PER UNIT CHARGE SC SCH (13:00)
--- NOTE | 2024-10-18 15:36 | Hospitalist Progress Note ---
Date of Service October 18, 2024 Assessment & Plan (1) COPD (chronic obstructive pulmonary disease) with acute bronchitis: Plan Acute Asthma/COPD exacerbation History of asthmaCOPD overlap Acute hypoxic respiratory failure -Patient presents with increasing shortness of breath for the last few days, admitting wbc wnl and cxr w/ no acute finding. -BNP, ECG, troponins reassuring at presentation. -Asthma/COPD most likely diagnosis, less likely [place] vs. other pathology given above Plan: -continue Levalbuterol and ipratropium nebs [id number], -continue budesonide and formoterol nebs twice daily -Persistent wheezing on exam/increasing dry cough per pt --> change PO steroid to iv solu Medrol (add PPI while on steroid). - continue azithromycin -likely at baseline oxygenation, however patient feels very anxious/depressed and is likely cause of exacerbation -PT/OT evaluations Concern for RLL pneumonia: Patient reports ongoing chest discomfort/tightness and shortness of breath. Patient does have increased frequency of cough, mostly dry per her. Repeat chest x-ray 10/18 with progressive airspace opacity at right lung base. Will initiate Rocephin 10/18 to cover for pneumonia. Will continue to monitor. Chest pressure ro ACS, ro cardiomyopathy: pt reports feeling chest pressure since she lost her son in mid August. Initial troponin elevated 10/17, then down trended, EKG with no acute ST or T changes. ECHO w/ EF of 60-65, grade I diastolic dysfunction, LV wall motion normal. Continue with telemonitoring. Cardio evaled, Aldactone added for chronic diastolic dysfunction. #Adjustment Disorder #Grief -related to 2 family members passing in past year Plan: -started buspar 5 tid and can uptitrate as needed, stopped xanax --> c/w buspar -started lexapro 10 mg daily in AM -- c/w lexapro. -psychology consult outpatient Type 2 diabetes mellitus continue on insulin Pulmonary hypertensionsildenafil continue OSAnoncompliant with CPAP Admission and Anticipated Discharge Date Admission Date: October 15, 2024 Subjective Patient seen and examined at bedside. Patient anxious and less tearful today. Reports difficulty breathing and increased dry cough, she feels weaker than normal and tired, reports eating ok Pt reports headache and facial pain, obtained ct head and face, no acute findings. Physical Exam Physical Exam: Gen: A&O 3 NAD HEENT: NCAT, EOMI, not icteric. External ears normal. No rhinorrhea. Moist mucous membranes. Neck: Supple, full range of motion, no observable masses, No meningeal sign. Lungs: rhonchi/wheezing bilaterally CV: RRR, no edema. Abdomen: Soft, nondistended, No rebound tenderness. MSK: No joint swelling, no redness. Skin: No rashes, petechiae, lesions. Normal color per patient. Neuro: Normal Gait, Grossly intact. Psych: very anxious, tearful Results & Data Results & Data Vital Signs (Past 12 Hours) Vital Signs Temp Pulse Resp BP Pulse Ox O2 Del Method O2 Flow Rate 10/18/24 12:02 63 18 96 Nasal Cannula 2 10/18/24 11:46 36.6 C 68 17 101/64 95 Room Air 10/18/24 08:07 36.4 C L 65 18 141/84 H 99 Nasal Cannula 2 10/18/24 08:00 3 10/18/24 07:36 63 18 99 Nasal Cannula 2 10/18/24 04:00 36.3 C L 65 20 115/75 96 Nasal Cannula 2
[2024-10-18] MEDS: cefTRIAXone SODIUM 2,000 MG/50 ML BAG IV STA (16:07)
[2024-10-19 06:13] LABS: Hematocrit (blood only) 43.6 % (37.0-47.0); Hemoglobin 14.4 g/dl (12.0-16.0); Mean Corpuscular Hemoglobin 30.1 pg (25.0-34.0); Mean Corpuscular Volume 91.2 fL (80.0-100.0); Mean Platelet Volume 10.4 fL (9.4-12.4); Platelet Count 344 K/uL (130-400); RDW Coefficient of Variation 13.7 % (11.5-14.5); RDW Standard Deviation 46.4 fL (36.4-46.3); Red Blood Count 4.78 M/uL (4.20-5.40); White Blood Count 8.37 K/ul (4.8-10.8)
[2024-10-19 06:32] LABS: BUN Creatinine Ratio 25.6 (10-20); Calcium 8.7 mg/dl (8.6-10.3); Creatinine Clr Calc Pharmacy 71.4 ml/min
[2024-10-19] MEDS: ADVANCED PROBIOTIC 625 MG CAPSULE PO SCH (08:44)
[2024-10-19] MEDS: LANTUS PER UNIT CHARGE SC SCH (09:00)
--- NOTE | 2024-10-19 10:50 | Cardiology Progress Note ---
Date of Service October 19, 2024 Assessment & Plan (1) Atypical chest pain: (2) Elevated troponin: (3) Acute exacerbation of chronic obstructive pulmonary disease: (4) Class 3 obesity: (5) Grief reaction: Plan 68-year-old female with longstanding pulmonary issues chronic chronic obstructive lung disease with past pulmonary hypertension on vasodilator therapy and home O2 admitted with COPD exacerbation. Several day history of worsening cough wheezing and shortness of breath unresponsive to increasing oxygen at home. Has responded initially with antibiotics and bronchodilators in hospital though with intermittent atypical chest pain with sharp jabbing the chest as well as sense of generalized ache. EKGs and echocardiogram without signs of myocardial injury or ischemia. Troponins however elevated Impression: Suspect elevated troponin secondary to acute demand issues of COPD exacerbation and superimposed grief reaction. Initial evaluations without signs of ischemia by EKG and echo. Atypical symptoms on description. Recommendations: Optimize medical therapies. Lab work ordered to assess lipid panel and TSH. Increase metoprolol succinate to 25 mg twice per day from 12.5 mg 3 times daily. Add spironolactone 12.5 mg p.o. daily for chronic diastolic dysfunction. EKG in a.m. n.p.o. after midnight and reassess in a.m. Note nitrates contraindicated 10/18/2024 Complex 68-year-old female admitted with worsening dyspnea and cough. Concerns raised regarding possible cardiac etiology though echocardiogram and EKGs unchanged. Troponins elevated likely reflecting demand ischemia. Exam today with worsening wheeze and cough, increased dyspnea Beta-seven increased slightly yesterday for rate control. Good result though will need to follow closely for bronchospastic exacerbation. Pulmonary medications increasing. Would continue spironolactone. Patient may require dose of IV furosemide as well. I's and O's uncertain Portable chest x-ray ordered 10/19/2024 Complex 68-year-old female with underlying significant chronic obstructive lung disease with acute exacerbation. Atypical chest pain exacerbated by stressors of illness and emotional grief reaction. Mild elevation troponin is likely demand based no signs to suggest acute coronary syndrome. Continue current therapies. Underlying pulmonary issues appear to be slowly improving. No further cardiac recommendations Contact with questions Admission and Anticipated Discharge Date Admission Date: October 15, 2024 Subjective Patient seen and examined, chart, medications, telemetry reviewed. No further chest pain. Respiratory status slowly improving less wheeze and cough today. No arrhythmias on telemetry Blood pressure mildly elevated today with higher dose corticosteroids and emotional stressors. Physical Exam Constitutional: + obese; no acute distress Eyes: PERRL, conjunctivae normal, anicteric sclerae ENMT: external ear and nose normal, oropharynx normal Neck: trachea midline, no thyromegaly Respiratory: Auscultation: + crackles and + wheezes Cardiovascular: Rate/Rhythm: regular rate and regular rhythm Heart Sounds: normal S1, normal S2 and + murmur (Grade 1/6 systolic murmur no diastolic) Vessels: no JVD Extremities: no edema Gastrointestinal (Abdomen): normal bowel sounds, soft, nontender, no hepatosplenomegaly Musculoskeletal: no cyanosis or clubbing, extremities motor strength 5/5 Results & Data Vital Signs (Past 12 Hours) Vital Signs Temp Pulse Resp BP BP Pulse Ox O2 Del Method 10/19/24 07:56 36.8 C 61 18 168/82 H 99 Nasal Cannula 10/19/24 07:44 60 18 95 Nasal Cannula 10/19/24 03:30 36.5 C 77 17 142/80 H 96 Nasal Cannula 10/19/24 01:19 72 18 96 Nasal Cannula 10/18/24 23:29 36.4 C L 74 17 96 Nasal Cannula O2 Flow Rate 10/19/24 07:56 2 10/19/24 07:44 2 10/19/24 03:30 2 10/19/24 01:19 10/18/24 23:29 2 Laboratory Results Laboratory Results - last 24 hr 10/18/24 10/18/24 10/18/24 12:22 17:14 20:10 WBC RBC Hgb Hct MCV MCH MCHC RDW Std Deviation RDW Coeff of Ralf Plt Count MPV Sodium Potassium Chloride Carbon Dioxide Anion Gap BUN Creatinine Est Cr Clr Drug Dosing eGFR BUN/Creatinine Ratio Glucose POC Glucose 227 H 270 H 250 H Calcium 10/19/24 10/19/24 05:44 08:05 WBC 8.37 RBC 4.78 Hgb 14.4 Hct 43.6 MCV 91.2 MCH 30.1 MCHC 33.0 RDW Std Deviation 46.4 H RDW Coeff of Ralf 13.7 Plt Count 344 MPV 10.4 Sodium 135 L Potassium 5.0 Chloride 101 Carbon Dioxide 30 Anion Gap 4 BUN 20 Creatinine 0.78 Est Cr Clr Drug Dosing 71.4 eGFR 82.68 BUN/Creatinine Ratio 25.6 H Glucose 249 H POC Glucose 254 H Calcium 8.7
--- NOTE | 2024-10-19 12:07 | Pharmacy Report ---
Pharmacy Glycemic Short Note 2 - Date of Service October 19, 2024 - Glycemic Short BSG Results (Last 24 hours): 10/18/24 10/18/24 10/18/24 12:22 17:14 20:10 Glucose POC Glucose 227 H 270 H 250 H 10/19/24 10/19/24 10/19/24 05:44 08:05 11:43 Glucose 249 H POC Glucose 254 H 270 H OUTPATIENT ANTIDIABETIC REGIMEN: * Tresiba 20 units SQ HS * Fiasp 10 units SQ TIDM * HbA1c 10.3% (10/16/24) ASSESSMENT: 10/18 * Patient received a total of 76 units of insulin yesterday (40 units were basal and 36 units were bolus) * Fasting BSG was 254mg/dL this morning. Her steroids were increased to methylprednisolone 40mg iv q 8 hours starting yesterday so this likely explains the sudden increase in the morning glucose reading. Her AM Lantus dose was increased to 25 units and the HS Lantus scale was increased (will now receive 0, 20, or 30 units depending on BSG). Her bolus insulin parameters were also tightened to a weight based stress of 1. 10/17 * Zaira received 90 units of insulin yesterday (60 were basal, 4 units IV regular bolus) * Fasting BSG this AM slightly below goal range, reduce AM Lantus ~30%, deferred using insulin NPH with AM with prednisone due to rapid decrease in BSG values overnight. Will continue a scale at bedtime but reduced to a total daily dose of max 20% lower than yesterday * NovoLog tightened again this AM, will loosen some due to tightly controlled BSGs now. 10/16 * Zaira is a 68 year old female admitted with a COPD exacerbation and a history of type 2 diabetes mellitus. Pharmacy has been consulted to assist with glycemic management while inpatient. * Admission BSG elevated, received methylprednisolone 125mg IV x1 upon admission, home Lantus dose given yesterday evening. BSGs continually elevated into the morning. Steroids changed to prednisone 40mg this AM. * Lantus ~0.4units/kg given this morning to help cover steroid induced hyperglycemia. BSGs still elevated at lunchtime. Will give a small one time IV regular bolus in addition to lunch coverage and correction. Consider NPH with predisone tomorrow due to elevated post-prandials. Will do a Lantus scale at bedtime in case BSGs significantly decrease and a dose reduction is needed. * NovoLog tightened significantly based on outpatient requirements and stressed based on recently elevated A1c PLAN FOR INPATIENT GLYCEMIC CONTROL: * Hold outpatient diabetes medications * Basal insulin * Lantus 25 units SQ QAM * Lantus 0-30 units SQ HS based on BSG (see eMAR for additional details) * Bolus insulin * NovoLog per scale ACHS or Q6hrs while NPO * Goal Range: Low 110 mg/dL - High 140 mg/dL * Correction Factor: 15 mg/dL/unit * Nutritional / Prandial insulin per carb ratio of 1 unit per 5 grams CHO consumed
[2024-10-19] MEDS: cefTRIAXone SODIUM 2,000 MG/50 ML BAG IV SCH (13:43)
--- NOTE | 2024-10-19 15:33 | Hospitalist Progress Note ---
Date of Service October 19, 2024 Assessment & Plan (1) COPD (chronic obstructive pulmonary disease) with acute bronchitis: Plan Acute Asthma/COPD exacerbation History of asthmaCOPD overlap Acute hypoxic respiratory failure -Patient presents with increasing shortness of breath for the last few days, admitting wbc wnl and cxr w/ no acute finding. -BNP, ECG, troponins reassuring at presentation. -Asthma/COPD most likely diagnosis, less likely [place] vs. other pathology given above Plan: -continue Levalbuterol and ipratropium nebs [id number], -continue budesonide and formoterol nebs twice daily -Persistent wheezing on exam/increasing dry cough per pt --> change PO steroid to iv solu Medrol 10/18 (add PPI while on steroid). - continue azithromycin -likely at baseline oxygenation, however patient feels very anxious/depressed and is likely cause of exacerbation -PT/OT evaluations Concern for RLL pneumonia: Patient reports ongoing chest discomfort/tightness and shortness of breath. Patient does have increased frequency of cough, mostly dry per her. Repeat chest x-ray 10/18 with progressive airspace opacity at right lung base. c/w Rocephin 10/18 to cover for pneumonia. Will continue to monitor. Chest pressure ro ACS, ro cardiomyopathy: pt reports feeling chest pressure since she lost her son in mid August. Initial troponin elevated 10/17, then down trended, EKG with no acute ST or T changes. ECHO w/ EF of 60-65, grade I diastolic dysfunction, LV wall motion normal. Continue with telemonitoring. Cardio evaled, metoprolol dose increased; Aldactone added for chronic diastolic dysfunction. #Adjustment Disorder #Grief -related to 2 family members passing in past year Plan: -started buspar 5 tid and can uptitrate as needed, stopped xanax --> c/w buspar -started lexapro 10 mg daily in AM -- c/w lexapro. -psychology consult outpatient Type 2 diabetes mellitus continue on insulin Pulmonary hypertensionsildenafil continue OSAnoncompliant with CPAP likely [place] if wheezing continues to improve Admission and Anticipated Discharge Date Admission Date: October 15, 2024 Subjective Patient seen and examined at bedside. Patient remains anxious but is less tearful. Reports improving breathing and decreased coughing, she feels tired, reports eating ok Reports improving chest pressure. Physical Exam Physical Exam: Gen: A&O 3 NAD HEENT: NCAT, EOMI, not icteric. External ears normal. No rhinorrhea. Moist mucous membranes. Neck: Supple, full range of motion, no observable masses, No meningeal sign. Lungs: rhonchi/wheezing bilaterally --improving. CV: RRR, no edema. Abdomen: Soft, nondistended, No rebound tenderness. MSK: No joint swelling, no redness. Skin: No rashes, petechiae, lesions. Normal color per patient. Neuro: Normal Gait, Grossly intact. Psych: very anxious, tearful Results & Data Results & Data Vital Signs (Past 12 Hours) Vital Signs Temp Pulse Pulse Resp BP BP Pulse Ox 10/19/24 15:21 81 10/19/24 13:14 69 17 96 10/19/24 10:59 36.8 C 67 18 137/78 95 10/19/24 07:56 36.8 C 61 18 168/82 H 99 10/19/24 07:44 60 18 95 10/19/24 07:30 10/19/24 07:30 63 10/19/24 03:30 36.5 C 77 17 142/80 H 96 O2 Del Method O2 Flow Rate 10/19/24 15:21 10/19/24 13:14 Nasal Cannula 2 10/19/24 10:59 Nasal Cannula 2 10/19/24 07:56 Nasal Cannula 2 10/19/24 07:44 Nasal Cannula 2 10/19/24 07:30 Nasal Cannula 3 10/19/24 07:30 10/19/24 03:30 Nasal Cannula 2
[2024-10-19] MEDS ORDERED: POLYETHYLENE (MIRALAX) 17 GM PACK PO PRN (18:10)
[2024-10-19] MEDS: guaiFENesin 600 MG TABCR PO SCH (21:36)
[2024-10-19] MEDS: methylPREDNISolone 40 MG in SYRINGE 0 ML IV SCH (21:37)
[2024-10-20 07:35] LABS: Hemoglobin 14.6 g/dl (12.0-16.0); Mean Corpuscular Volume 91.3 fL (80.0-100.0); Mean Platelet Volume 11.1 fL (9.4-12.4); Platelet Count 383 K/uL (130-400); RDW Coefficient of Variation 14.1 % (11.5-14.5); RDW Standard Deviation 46.7 fL (36.4-46.3); Red Blood Count 4.71 M/uL (4.20-5.40); White Blood Count 13.47 K/ul (4.8-10.8)
[2024-10-20 07:56] LABS: BUN Creatinine Ratio 33.3 (10-20); Calcium 8.5 mg/dl (8.6-10.3); Creatinine Clr Calc Pharmacy 68.5 ml/min; Magnesium 2.1 mg/dl (1.7-2.4); Potassium 4.4 mmol/L (3.5-5.1)
--- NOTE | 2024-10-20 12:15 | Pulmonary Consultation ---
Date of Consultation October 20, 2024 Assessment & Plan (1) ILD (interstitial lung disease): (2) Combined pulmonary fibrosis and emphysema (CPFE): (3) Acute exacerbation of chronic obstructive pulmonary disease: (4) Obstructive sleep apnea: (5) Class 3 obesity: (6) Restrictive lung disease: Plan PFT 01/07/2022 personally reviewed: Moderate to severe restrictive lung dysfunction, moderate decrease in TLC with severe decrease in ERV FVC 1.32 L 46%, FEV1 1.19 L 55%, FEV1/FVC 90%, RV 52%, TLC 57%, RV/TLC 93% 2D echo 10/17/2024: EF 60-65%, grade 1 diastolic dysfunction, moderate concentric LVH, RV normal in size and function HRCT 01/07/2022 personally reviewed: Fibrotic changes are appreciated in the apex as well as bilaterally, they follow the groundglass opacity which she had when she had COVID-19 Motion degraded study Right lower lobe pulmonary nodule Cardiomegaly No significant mediastinal lymphadenopathy -- Acute hypoxic respiratory failure Likely secondary to asthma-COPD exacerbation Negative for influenza A/B, COVID-19 as well as RSV on 10/15/2024 BNP 81 -- Asthma-COPD overlap syndrome On Advair 250 at home Absolute eosinophil count 320 on 01/28/2022, 120 on 10/15/2024 --Interstitial lung disease with severe restriction Likely fibrotic component from the severe COVID-19 infection she had in March 2021 Also worked in [employer] for 7 years Restrictive component is coming from ILD/fibrosis from COVID-19 pneumonia as well as BMI of 38 Continue with incentive spirometry -- PARRIS Polysomnography 01/06/2022: AHI 30.4, optimal CPAP titration with 5 cm H2O Noncompliant with CPAP --Pulmonary hypertension as per the chart She is also taking sildenafil 10 mg 3 times daily as if he has primary pulmonary hypertension I do not see a documentation of right heart cath Latest 2D echo does not show elevated right-sided pressures Given that she has already been on it for a long time, I would not make any changes to this regimen -- Obesity Weight loss will be beneficial Plan: Continue with formoterol and budesonide nebulized I will add Incruse inhaler to the regimen At home would recommend to add Spiriva or Incruse to her Advair 250 7% nebulized saline while in the hospital Patient will benefit from pulmonary rehab when discharged. I spent more than 75 minutes looking in the chart, images, discussing the plan of care with the patient, RN as well as primary team Please note the above document was generated using voice recognition software. It may contain grammatical, syntax or spelling errors.Any formal questions or concerns about the content, text or information contained within the body of this dictation should be directly addressed to the provider for clarification. History of Present Illness Attending Physician: Jean Vincent MD History of Present Illness 68-year-old female admitted to the hospital for shortness of breath Past medical history of diabetes, asthma, obesity Pulmonary positive for no improvement in respiratory status Used to with as outpatient currently following up with ear pull machine operator at [facility]. Notes personally reviewed At the time of examination patient was being treated with DuoNebs. She was not in any respiratory distress Saturation was 96-97%. Patient has been saying that she was complaining of worsening shortness of breath for approximately 2-3 weeks. This is when the pollen started She did have some subjective chills around that time. Does have cough but is able to bring up the phlegm without any issues. Denies any significant chest congestion. No hemoptysis Denies any nausea vomiting Does have chronic night sweats which have not changed in frequency or intensity No unintentional weight loss Denies any unusual headache or blurry vision Does have chronic loose bowel movements. Social history: Approximately [id number] smoking history, quit approximately 22 years ago. Worked in [employer] for 7 years. Also had hot tub at home for some time Denies any pets at home. Para no history of lung cancer in the family Allergies Allergy/AdvReac Type Severity Reaction Status Date / Time No Known Allergies Allergy Unknown Verified 03/09/23 09:54 Home Medications Medication Instructions Recorded Confirmed Type metoprolol succinate 25 mg 12.5 mg (1/2 x 25 mg) PO TID #0 04/22/21 10/15/24 Rx tablet,extended release 24 hr tabs nebulizer accessories #1 ea 01/21/22 11/05/22 Rx nebulizer and compressor #1 ea 01/21/22 11/05/22 Rx CPAP Machine #1 ea 05/18/22 08/04/22 Rx CPAP Supplies #1 ea 05/18/22 08/04/22 Rx levalbuterol HCl 1.25 mg/3 mL 1.25 mg NEB Q4H PRN asthma/copd 08/04/22 10/15/24 History solution for nebulization arformoterol 15 mcg/2 mL solution 2 ml inhalation UD PRN asthma/copd 11/05/22 10/15/24 History for nebulization (Brovana) fluticasone 250 mcg-salmeterol 50 1 inh inhalation UD PRN asthma/copd 11/05/22 10/15/24 History mcg/dose blistr powdr for inhalation (Advair Diskus) furosemide 20 mg tablet (Lasix) 40 mg PO UD PRN Edema 11/05/22 10/15/24 History blood-glucose sensor (FreeStyle #2 ea 01/06/23 Rx Ling 3 Sensor device) albuterol sulfate 90 mcg/actuation 2 inh inhalation QID PRN 03/09/23 10/15/24 History aerosol inhaler asthma/copd sildenafil (pulm.hypertension) 20 10 mg PO TID 03/09/23 10/15/24 History mg tablet (Revatio) tramadol 50 mg tablet 50 mg PO Q4H PRN pain #15 tabs 06/01/23 10/15/24 Rx Tresiba FlexTouch U-100 100 20 unit (0.2 mL) subcut HS #30 mL 07/11/23 10/15/24 Rx unit/mL (3 mL) subcutaneous pen (insulin degludec) insulin aspart 10 unit subcut TIDM #30 mL 07/11/23 10/15/24 Rx (niacinamide)(U-100) 100 unit/mL(3 mL) subcutaneous pen (Fiasp FlexTouch U-100 Insulin) Patient History Medical History Sleep apnea inconsistent use/toleration issues. Nausea and vomiting after administration of anesthetic agent Neuropathy legs/stimular for right side/doesn't work battery is . Diabetic retinopathy injections for / most recent 3 wks ago/upcoming Mar 18 2023. Chronic cough no change in baseline. Oxygen deficiency o2 2-3L prn. Last need of oxygen September 2022. baseline oxygen sat 88 %, recently been in the 90's. COPD (chronic obstructive pulmonary disease) denies recent flares. Asthma last use rescue inhler 1 wk or so ago. Denies recent flares. HTN (hypertension) Type 2 diabetes mellitus History of fracture of leg Right femoral condyle fracture 2021/no sx intervention as of current/knee replacement was advised. B12 deficiency hx History of COVID-19 Pneumonia with ARDS in 2020, 3 months hospitalization, shorter hospitalization in 2022. Surgical History History of cataract surgery right and left. History of bilateral breast reduction surgery History of surgery stimulator placement. History of x2 History of back surgery History of hysterectomy History of colonoscopy Family History Father Stroke Heart disease Cancer skin Mother Breast cancer Grandmother (Paternal) Breast cancer Social History Smoking Status: Former smoker Tobacco Type: Cigarettes Smoking End Date: 30 years ago; Second Hand Exposure: No; Do You Dip or Chew Tobacco: No; Tobacco Cessation Education Requested by Patient: No Hx Alcohol Use: Yes Alcohol type: beer Hx Substance Use: No Preferred Language: Mauritanian Communication Ability: Effective Electronic Data Interchange Specialist Required: No Beliefs That Will Affect Care: None Current Living Situation: Spouse Current Living Situation Comment: daughter (handicap) Other Information That Helps Us Care for You: No Feels Safe at Home: Yes Safety Concerns: Feels Safe At This Time Assistive Devices: Cane, Oxygen - Continuous and Walker Assistive Devices Comment: dog ate/broke glasses Review of Systems 2 Review of Systems: All systems reviewed & are unremarkable except as noted in HPI & below Physical Exam 2 Physical Exam: Constitutional: No acute distress HEENT: EOMI, PERRLA Respiratory system: Decreased air entry bilaterally, no rhonchi, positive mild expiratory wheeze bilaterally, positive Velcro-like crackles bilateral lower lobes more on the right side CVS: S1-S2 positive, positive 2 out of 6 systolic murmur appreciated best at aorta Abdomen: Soft, nontender, nondistended, positive bowel sounds x4, obese Extremities: +2 pulses bilaterally radialis/ dorsalis pedis, no cyanosis, no edema Neuro: Awake alert oriented x3 Psych: Normal mood and affect G/U: No Coronel Skin: no rashes, warm and dry Lymphatic: no cervical or axillary lymphadenopathy Results & Data Results & Data Vital Signs (Past 12 Hours) Vital Signs Temp Pulse Pulse Resp BP BP Pulse Ox 10/20/24 08:02 36.8 C 69 16 131/78 94 10/20/24 07:52 69 18 94 10/20/24 07:40 10/20/24 07:12 64 10/20/24 02:42 36.6 C 74 16 119/73 97 10/20/24 00:25 67 18 96 O2 Del Method O2 Flow Rate 10/20/24 08:02 Nasal Cannula 2 10/20/24 07:52 Room Air 10/20/24 07:40 Nasal Cannula 3 10/20/24 07:12 10/20/24 02:42 Nasal Cannula 2 10/20/24 00:25 Nasal Cannula 2 Laboratory Results 10/20/24 06:38 10/20/24 06:38 PG Care Time/CCT Total # of Minutes Spent Total Time Spent with Patient: Total time spent is greater than 50% in coordination of care (as documented) at patient's floor/unit and/or counseling patient: Coding Level of Care Code 76916 INT INP/OBS CARE 375MIN Diagnoses ILD (interstitial lung disease) J84.9 Combined pulmonary fibrosis and emphysema (CPFE) J43.9; J84.10 Acute exacerbation of chronic obstructive pulmonary disease J44.1 Obstructive sleep apnea G47.33 Class 3 obesity E66.01 Restrictive lung disease J98.4
--- NOTE | 2024-10-20 14:54 | Electrocardiogram Report ---
Test Reason : Blood Pressure : */* mmHG Vent. Rate : 62 BPM Atrial Rate : 62 BPM P-R Int : 162 ms QRS Dur : 76 ms QT Int : 416 ms P-R-T Axes : 49 1 8 degrees QTcB Int : 422 ms Normal sinus rhythm Normal ECG When compared with ECG of 17-Oct-2024 10:40, (unconfirmed) Nonspecific T wave abnormality no longer evident in Anterior leads Confirmed by Amanda Jaime (Jose) on 10/20/2024 2:54:15 PM Referred By: REFERRED SELF Confirmed By: Amanda Jaime
--- NOTE | 2024-10-20 15:29 | Hospitalist Progress Note ---
Date of Service October 20, 2024 Assessment & Plan (1) COPD (chronic obstructive pulmonary disease) with acute bronchitis: Plan Acute Asthma/COPD exacerbation History of asthmaCOPD overlap Acute hypoxic respiratory failure -Patient presents with increasing shortness of breath for the last few days, admitting wbc wnl and cxr w/ no acute finding. -BNP, ECG, troponins reassuring at presentation. -Asthma/COPD most likely diagnosis, less likely [place] vs. other pathology given above Plan: -continue Levalbuterol and ipratropium nebs [id number], -continue budesonide and formoterol nebs twice daily -Persistent wheezing on exam/increasing dry cough per pt --> changed PO steroid to iv solu Medrol 10/18 (add PPI while on steroid). - s/p azithromycin course -likely at baseline oxygenation, however patient feels very anxious/depressed and is likely cause of exacerbation -PT/OT evaluations -Pulm evaled 10/20, add incruse to her Advair, pul rehab when dc'd. Concern for RLL pneumonia: Patient reports ongoing chest discomfort/tightness and shortness of breath. Patient does have increased frequency of cough, mostly dry per her. Repeat chest x-ray 10/18 with progressive airspace opacity at right lung base. c/w Rocephin 10/18 to cover for pneumonia. Will continue to monitor. Chest pressure ro ACS, ro cardiomyopathy: pt reports feeling chest pressure since she lost her son in mid August. Initial troponin elevated 10/17, then down trended, EKG with no acute ST or T changes. ECHO w/ EF of 60-65, grade I diastolic dysfunction, LV wall motion normal. Continue with telemonitoring. Cardio evaled, metoprolol dose increased; Aldactone added for chronic diastolic dysfunction. #Adjustment Disorder #Grief -related to 2 family members passing in past year Plan: -started buspar 5 tid and can uptitrate as needed, stopped xanax --> c/w buspar -started lexapro 10 mg daily in AM -- c/w lexapro. -psychology consult outpatient Type 2 diabetes mellitus continue on insulin Pulmonary hypertensionsildenafil continue OSAnoncompliant with CPAP likely dc [place] next few days pending resp status improvement. Admission and Anticipated Discharge Date Admission Date: October 15, 2024 Subjective Patient seen and examined at bedside. Patient remains anxious but is less tearful. Reports improving breathing and decreased coughing, she feels tired, reports eating ok She continues to have significant wheezing on exam/slow progress. Reports improving chest pressure. Physical Exam Physical Exam: Gen: A&O 3 NAD HEENT: NCAT, EOMI, not icteric. External ears normal. No rhinorrhea. Moist mucous membranes. Neck: Supple, full range of motion, no observable masses, No meningeal sign. Lungs: rhonchi/wheezing bilaterally --slow progress/improvement. CV: RRR, no edema. Abdomen: Soft, nondistended, No rebound tenderness. MSK: No joint swelling, no redness. Skin: No rashes, petechiae, lesions. Normal color per patient. Neuro: Normal Gait, Grossly intact. Psych: very anxious, tearful Results & Data Results & Data Vital Signs (Past 12 Hours) Vital Signs Temp Pulse Pulse Resp BP BP Pulse Ox 10/20/24 12:31 36.7 C 67 16 137/74 96 10/20/24 12:07 67 18 97 10/20/24 08:02 36.8 C 69 16 131/78 94 10/20/24 07:52 69 18 94 10/20/24 07:40 10/20/24 07:12 64 O2 Del Method O2 Flow Rate 10/20/24 12:31 Nebulizer 10/20/24 12:07 Nasal Cannula 2 10/20/24 08:02 Nasal Cannula 2 10/20/24 07:52 Room Air 10/20/24 07:40 Nasal Cannula 3 10/20/24 07:12
[2024-10-20] MEDS: UMECLIDINIUM BROMIDE 62.5MCG/BLISTER 7 PUFFS/INHALER INH SCH (15:55)
[2024-10-20] MEDS: SODIUM CHLOR 7% 4 ML NEB NEB SCH (20:02)
[2024-10-20] MEDS: MONTELUKAST SODIUM 10 MG TABLET PO SCH (21:39)
[2024-10-21 06:28] LABS: Hematocrit (blood only) 45.1 % (37.0-47.0); Hemoglobin 14.7 g/dl (12.0-16.0); Mean Corpuscular Hemoglobin 29.9 pg (25.0-34.0); Mean Corpuscular Hgb Conc 32.6 g/dL (32.0-36.0); Mean Corpuscular Volume 91.7 fL (80.0-100.0); Mean Platelet Volume 10.7 fL (9.4-12.4); Platelet Count 410 K/uL (130-400); RDW Coefficient of Variation 14.2 % (11.5-14.5); RDW Standard Deviation 47.7 fL (36.4-46.3); Red Blood Count 4.92 M/uL (4.20-5.40); White Blood Count 12.12 K/ul (4.8-10.8)
[2024-10-21 06:44] LABS: BUN Creatinine Ratio 28.2 (10-20); Calcium 8.5 mg/dl (8.6-10.3); Potassium 4.5 mmol/L (3.5-5.1)
--- NOTE | 2024-10-21 08:18 | XRay Report ---
HISTORY: Respiratory failure. TECHNIQUE: Portable AP radiograph of the chest. COMPARISON: Chest radiograph dated 10/18/2024. FINDINGS: Pulmonary vascular congestion. Small pleural effusions. Similar multifocal airspace opacity involving the mid and lower lungs. No pneumothorax. Right chest Mediport with catheter tip at the superior cavoatrial junction. Mild cardiomegaly. Left-sided aortic arch. Midline trachea. No acute osseous abnormality. Included upper abdomen is unremarkable. IMPRESSION: * Similar multifocal opacity involving the mid and lower lungs, which could represent multifocal pneumonia or pulmonary edema. * Cardiomegaly with mild vascular congestion and small pleural effusions could represent CHF. * Additional chronic and/or incidental findings as above. Electronically signed by Fei Flores 10-21-2024 08:18 AM
[2024-10-21] MEDS: FUROSEMIDE INJ 20 MG/2 ML VIAL IV ONE ×2 (09:59→12:29)
--- NOTE | 2024-10-21 10:51 | Pulmonology Progress Note ---
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): (3) Acute exacerbation of chronic obstructive pulmonary disease: (4) Obstructive sleep apnea: (5) Class 3 obesity: (6) Restrictive lung disease: Plan PFT 01/07/2022 personally reviewed: Moderate to severe restrictive lung dysfunction, moderate decrease in TLC with severe decrease in ERV FVC 1.32 L 46%, FEV1 1.19 L 55%, FEV1/FVC 90%, RV 52%, TLC 57%, RV/TLC 93% 2D echo 10/17/2024: EF 60-65%, grade 1 diastolic dysfunction, moderate concentric LVH, RV normal in size and function HRCT 01/07/2022 personally reviewed: Fibrotic changes are appreciated in the apex as well as bilaterally, they follow the groundglass opacity which she had when she had COVID-19 Motion degraded study Right lower lobe pulmonary nodule Cardiomegaly No significant mediastinal lymphadenopathy -- Acute on chronic hypoxic respiratory failure Likely secondary to asthma-COPD exacerbation Negative for influenza A/B, COVID-19 as well as RSV on 10/15/2024 BNP 81 -- Asthma-COPD overlap syndrome [id number] smoking history Child history of asthma On Advair 250 at home Absolute eosinophil count 320 on 01/28/2022, 120 on 10/15/2024 --Interstitial lung disease with severe restriction Likely fibrotic component from the severe COVID-19 infection she had in March 2021 Also worked in [employer] for 7 years Restrictive component is coming from ILD/fibrosis from COVID-19 pneumonia as well as BMI of 38 Continue with incentive spirometry -- PARRIS Polysomnography 01/06/2022: AHI 30.4, optimal CPAP titration with 5 cm H2O Noncompliant with CPAP --Pulmonary hypertension as per the chart She is also taking sildenafil 10 mg 3 times daily as if he has primary pulmonary hypertension I do not see a documentation of right heart cath Latest 2D echo does not show elevated right-sided pressures Given that she has already been on it for a long time, I would not make any changes to this regimen -- Obesity Weight loss will be beneficial Plan: Chest x-ray from today on personal review showed increased vascular markings compared to yesterday I will give her Lasix 20 mg IV Continue with formoterol and budesonide nebulized and Incruse inhaler to the regimen On would recommend to add Spiriva or Incruse to her Advair 250 7% nebulized saline while in the hospital I will add Mucomyst nebulized Patient will benefit from pulmonary rehab when discharged. Please note the above document was generated using voice recognition software. It may contain grammatical, syntax or spelling errors.Any formal questions or concerns about the content, text or information contained within the body of this dictation should be directly addressed to the provider for clarification. Admission and Anticipated Discharge Date Admission Date: October 15, 2024 Subjective Patient seen and examined at bedside. No acute distress, no adverse events overnight She was saturating 98% on 1 and half liters. Still complaining of cough and having difficulty bringing up the phlegm No chest pain, no headache, no nausea or vomiting Fair appetite Review of Systems 2 Review of Systems: All systems reviewed & are unremarkable except as noted in Subjective Physical Exam 2 Physical Exam: Constitutional: No acute distress HEENT: EOMI, PERRLA Respiratory system: Decreased air entry bilaterally, no rhonchi, positive Velcro-like crackles bilateral lower lobes more on the right side, expiratory wheeze appreciated on the initial breath but it went away when she coughed CVS: S1-S2 positive, positive 2 out of 6 systolic murmur appreciated best at aorta Abdomen: Soft, nontender, nondistended, positive bowel sounds x4, obese Extremities: +2 pulses bilaterally radialis/ dorsalis pedis, no cyanosis, no edema Neuro: Awake alert oriented x3 Psych: Normal mood and affect G/U: No Coronel Skin: no rashes, warm and dry Lymphatic: no cervical or axillary lymphadenopathy Results & Data Results & Data Vital Signs (Past 12 Hours) Vital Signs Temp Pulse Pulse Resp BP BP Pulse Ox 10/21/24 07:59 59 L 10/21/24 07:54 36.4 C L 59 L 16 148/82 H 93 10/21/24 07:27 80 18 98 10/21/24 02:47 36.3 C L 65 18 135/79 97 10/21/24 00:11 71 18 99 O2 Del Method O2 Flow Rate 10/21/24 07:59 10/21/24 07:54 Nebulizer 10/21/24 07:27 Nasal Cannula 1 05/04/25 02:47 Nasal Cannula 2 10/21/24 00:11 Nasal Cannula 1 Laboratory Results 10/21/24 05:30 10/21/24 05:30 PG Care Time/CCT Total # of Minutes Spent Total Time Spent with Patient: Total time spent is greater than 50% in coordination of care (as documented) at patient's floor/unit and/or counseling patient: Coding Level of Care Code 17816 SUB INP/OBS CARE 2/35MIN Diagnoses ILD (interstitial lung disease) J84.9 Combined pulmonary fibrosis and emphysema (CPFE) J43.9; J84.10 Acute exacerbation of chronic obstructive pulmonary disease J44.1 Obstructive sleep apnea G47.33 Class 3 obesity E66.01 Restrictive lung disease J98.4
--- NOTE | 2024-10-21 15:32 | Hospitalist Progress Note ---
Date of Service October 21, 2024 Assessment & Plan (1) COPD (chronic obstructive pulmonary disease) with acute bronchitis: Plan Acute Asthma/COPD exacerbation History of asthmaCOPD overlap Acute hypoxic respiratory failure -Patient presents with increasing shortness of breath for the last few days, admitting wbc wnl and cxr w/ no acute finding. -BNP, ECG, troponins reassuring at presentation. -Asthma/COPD most likely diagnosis, less likely [place] vs. other pathology given above Plan: -continue Levalbuterol and ipratropium nebs [id number], -continue budesonide and formoterol nebs twice daily -Persistent wheezing on exam/increasing dry cough per pt --> changed PO steroid to iv solu Medrol 10/18 (add PPI while on steroid). - s/p azithromycin course -likely at baseline oxygenation, however patient feels very anxious/depressed and is likely cause of exacerbation -PT/OT evaluations -Pulm evaled 10/20, added incruse to her Advair, montelukast, pul rehab when dc'd. Concern for RLL pneumonia: Patient reports ongoing chest discomfort/tightness and shortness of breath. Patient does have increased frequency of cough, mostly dry per her. Repeat chest x-ray 10/18 with progressive airspace opacity at right lung base. c/w Rocephin 10/18 to cover for pneumonia. Will continue to monitor. Chest pressure ro ACS, ro cardiomyopathy: pt reports feeling chest pressure since she lost her son in mid August. Initial troponin elevated 10/17, then down trended, EKG with no acute ST or T changes. ECHO w/ EF of 60-65, grade I diastolic dysfunction, LV wall motion normal. Continue with telemonitoring. Cardio evaled, metoprolol dose increased; Aldactone added for chronic diastolic dysfunction. #Adjustment Disorder #Grief -related to 2 family members passing in past year Plan: -started buspar 5 tid and can uptitrate as needed, stopped xanax --> c/w buspar -started lexapro 10 mg daily in AM -- c/w lexapro. -psychology consult outpatient Type 2 diabetes mellitus continue on insulin Pulmonary hypertensionsildenafil continue OSAnoncompliant with CPAP likely dc next few days pending resp status improvement. Admission and Anticipated Discharge Date Admission Date: October 15, 2024 Subjective Patient seen and examined at bedside. Patient reports anxiety but being able to cope with it better now. Reports improving slightly increased coughing, she feels tired, reports eating ok She continues to have significant wheezing on exam/slow progress. Reports improving chest pressure. CXR today showed pul edema, will give 20 mg iv lasix. Physical Exam Physical Exam: Gen: A&O 3 NAD HEENT: NCAT, EOMI, not icteric. External ears normal. No rhinorrhea. Moist mucous membranes. Neck: Supple, full range of motion, no observable masses, No meningeal sign. Lungs: rhonchi/wheezing bilaterally --slow progress/improvement. CV: RRR, no edema. Abdomen: Soft, nondistended, No rebound tenderness. MSK: No joint swelling, no redness. Skin: No rashes, petechiae, lesions. Normal color per patient. Neuro: Normal Gait, Grossly intact. Psych: very anxious, tearful Results & Data Results & Data Vital Signs (Past 12 Hours) Vital Signs Temp Pulse Pulse Resp BP Pulse Ox O2 Del Method 10/21/24 15:25 71 10/21/24 14:26 73 16 96 Nasal Cannula 10/21/24 12:30 Nasal Cannula 10/21/24 11:41 36.7 C 64 16 115/69 95 Nasal Cannula 10/21/24 07:59 59 L 10/21/24 07:54 36.4 C L 59 L 16 148/82 H 93 Nebulizer 10/21/24 07:27 80 18 98 Nasal Cannula O2 Flow Rate 10/21/24 15:25 10/21/24 14:26 1 10/21/24 12:30 2 10/21/24 11:41 2 10/21/24 07:59 10/21/24 07:54 10/21/24 07:27 1
[2024-10-21] MEDS: ACETYLCYSTEINE 20% INHAL SOLN 4ML ***DISPENSED BY RESP. INH SCH ×2 (16:27→20:06)
[2024-10-21] MEDS: INSULIN ASPART PER UNIT CHARGE SC SCH ×2 (17:50→21:21)
[2024-10-21] MEDS: DOCUSATE SODIUM 100 MG CAP PO SCH (21:22)
[2024-10-22] MEDS: LANTUS PER UNIT CHARGE SC SCH (08:40)
[2024-10-22 08:55] LABS: Hematocrit (blood only) 46.7 % (37.0-47.0); Hemoglobin 15.3 g/dl (12.0-16.0); Mean Corpuscular Hgb Conc 32.8 g/dL (32.0-36.0); Mean Corpuscular Volume 91.6 fL (80.0-100.0); Mean Platelet Volume 10.6 fL (9.4-12.4); Platelet Count 383 K/uL (130-400); RDW Coefficient of Variation 14.2 % (11.5-14.5); RDW Standard Deviation 47.7 fL (36.4-46.3); White Blood Count 14.88 K/ul (4.8-10.8)
[2024-10-22 09:21] LABS: BUN Creatinine Ratio 37.3 (10-20); Calcium 8.5 mg/dl (8.6-10.3); Creatinine Clr Calc Pharmacy 75.6 ml/min; Potassium 4.4 mmol/L (3.5-5.1)
--- NOTE | 2024-10-22 09:45 | Pharmacy Report ---
Pharmacy Glycemic Short Note 2 - Date of Service October 22, 2024 - Glycemic Short BSG Results (Last 24 hours): 10/21/24 10/21/24 10/21/24 12:09 16:57 16:58 Glucose POC Glucose 287 H 369 H* 379 H* 10/21/24 10/22/24 10/22/24 20:30 08:02 08:20 Glucose 171 H POC Glucose 282 H 160 H OUTPATIENT ANTIDIABETIC REGIMEN: * Tresiba 20 units SQ HS * Fiasp 10 units SQ TIDM * HbA1c 10.3% (10/16/24) ASSESSMENT: 10/22 * Patient received 94 units of insulin yesterday, 45 units basal, blood sugars above goal at all times, except for fasting. * Patient remains on Solu-Medrol 40mg IV BID, increase basal slightly, and significantly tighten CR to prevent steroid induced hyperglycemia. 10/19 * Patient received a total of 76 units of insulin yesterday (40 units were basal and 36 units were bolus) * Fasting BSG was 254mg/dL this morning. Her steroids were increased to methylprednisolone 40mg iv q 8 hours starting yesterday so this likely explains the sudden increase in the morning glucose reading. Her AM Lantus dose was increased to 25 units and the HS Lantus scale was increased (will now receive 0, 20, or 30 units depending on BSG). Her bolus insulin parameters were also tightened to a weight based stress of 1. 10/17 * Zaira received 90 units of insulin yesterday (60 were basal, 4 units IV regular bolus) * Fasting BSG this AM slightly below goal range, reduce AM Lantus ~30%, deferred using insulin NPH with AM with prednisone due to rapid decrease in BSG values overnight. Will continue a scale at bedtime but reduced to a total daily dose of max 20% lower than yesterday * NovoLog tightened again this AM, will loosen some due to tightly controlled BSGs now. 10/16 * Zaira is a 68 year old female admitted with a COPD exacerbation and a history of type 2 diabetes mellitus. Pharmacy has been consulted to assist with glycemic management while inpatient. * Admission BSG elevated, received methylprednisolone 125mg IV x1 upon admission, home Lantus dose given yesterday evening. BSGs continually elevated into the morning. Steroids changed to prednisone 40mg this AM. * Lantus ~0.4units/kg given this morning to help cover steroid induced hyperglycemia. BSGs still elevated at lunchtime. Will give a small one time IV regular bolus in addition to lunch coverage and correction. Consider NPH with predisone tomorrow due to elevated post-prandials. Will do a Lantus scale at bedtime in case BSGs significantly decrease and a dose reduction is needed. * NovoLog tightened significantly based on outpatient requirements and stressed based on recently elevated A1c PLAN FOR INPATIENT GLYCEMIC CONTROL: * Hold outpatient diabetes medications * Basal insulin * Lantus 30 units SQ QAM * Lantus 0-30 units SQ HS based on BSG (see eMAR for additional details) * Bolus insulin * NovoLog per scale ACHS or Q6hrs while NPO * Goal Range: Low 110 mg/dL - High 140 mg/dL * Correction Factor: 15 mg/dL/unit * Nutritional / Prandial insulin per carb ratio of 1 unit per 3 grams CHO consumed
[2024-10-22] MEDS: LACTULOSE SYRUP 20 GM/30 ML UDC PO ONE (09:49)
--- NOTE | 2024-10-22 13:38 | Pulmonology Progress Note ---
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 7 days of abx. Continue ICS and LABA nebs. Transition to oral prednisone. D/C Mucomyst. CXR 10/21/24 CXR with bibasilar infiltrates. Check bnp and procal in am. Call with questions. Admission and Anticipated Discharge Date Admission Date: October 15, 2024 Subjective Feels wheezing and dyspnea improving. Denies bains/n/v/cp. Review of Systems Review of Systems: All systems reviewed & are unremarkable except as noted in HPI & below Physical Exam Physical Exam: Constitutional: No acute distress HEENT: EOMI, PERRLA Respiratory system: Prolonged phase of exhalation. No wheezes CVS: S1-S2 positive, positive murmur Abdomen: Soft, nontender, nondistended, positive bowel sounds x4, obese Extremities: +2 pulses bilaterally radialis/ dorsalis pedis, no cyanosis, no edema Neuro: Awake alert oriented x3 Psych: Normal mood and affect Skin: no rashes, warm and dry Lymphatic: no cervical or axillary lymphadenopathy Results & Data Results & Data Vital Signs (Past 12 Hours) Vital Signs Temp Pulse Pulse Pulse Resp BP BP 10/22/24 12:09 36.5 C 69 17 138/85 10/22/24 09:18 10/22/24 08:02 36.4 C L 70 15 147/81 H 10/22/24 07:05 66 10/22/24 07:00 65 16 10/22/24 04:00 36.5 C 71 20 125/74 10/22/24 01:34 71 16 Pulse Ox O2 Del Method O2 Flow Rate 10/22/24 12:09 96 Nasal Cannula 2 10/22/24 09:18 Room Air 10/22/24 08:02 91 Nasal Cannula 2 10/22/24 07:05 10/22/24 07:00 93 Room Air 10/22/24 04:00 96 Nasal Cannula 2 10/22/24 01:34 97 Nasal Cannula 1 PG Care Time/CCT Total # of Minutes Spent Total Time Spent with Patient: Total time spent is greater than 50% in coordination of care (as documented) at patient's floor/unit and/or counseling patient: Coding Level of Care Code 64512 SUB INP/OBS CARE MIN Diagnoses ILD (interstitial lung disease) J84.9 Combined pulmonary fibrosis and emphysema (CPFE) J43.9; J84.10 Acute exacerbation of chronic obstructive pulmonary disease J44.1 Obstructive sleep apnea G47.33 Class 3 obesity E66.01 Restrictive lung disease J98.4
[2024-10-22] MEDS: FUROSEMIDE INJ 20 MG/2 ML VIAL IV ONE (15:31)
--- NOTE | 2024-10-22 15:39 | Hospitalist Progress Note ---
Date of Service October 22, 2024 Assessment & Plan (1) COPD (chronic obstructive pulmonary disease) with acute bronchitis: Plan Acute Asthma/COPD exacerbation History of asthmaCOPD overlap Acute hypoxic respiratory failure -Patient presents with increasing shortness of breath for the last few days, admitting wbc wnl and cxr w/ no acute finding. -BNP, ECG, troponins reassuring at presentation. -Asthma/COPD most likely diagnosis, less likely [place] vs. other pathology given above Plan: -continue Levalbuterol and ipratropium nebs [id number], -continue budesonide and formoterol nebs twice daily -Wheezing and sob improving --changed to po steroid 10/22 - s/p azithromycin course -likely at baseline oxygenation, however patient feels very anxious/depressed and is likely cause of exacerbation -PT/OT evaluations -Pulm evaled 10/20, added incruse to her Advair, montelukast, pul rehab when dc'd. Concern for RLL pneumonia: Patient reports ongoing chest discomfort/tightness and shortness of breath. Patient does have increased frequency of cough, mostly dry per her. Repeat chest x-ray 10/18 with progressive airspace opacity at right lung base. c/w Rocephin 10/18 to cover for pneumonia. Will continue to monitor. Chest pressure ro ACS, ro cardiomyopathy: pt reports feeling chest pressure since she lost her son in mid August. Initial troponin elevated 10/17, then down trended, EKG with no acute ST or T changes. ECHO w/ EF of 60-65, grade I diastolic dysfunction, LV wall motion normal. Continue with telemonitoring. Cardio evaled, metoprolol dose increased; Aldactone added for chronic diastolic dysfunction. #Adjustment Disorder #Grief -related to 2 family members passing in past year Plan: -started buspar 5 tid and can uptitrate as needed, stopped xanax --> c/w buspar -started lexapro 10 mg daily in AM -- c/w lexapro. -psychology consult outpatient Type 2 diabetes mellitus continue on insulin Pulmonary hypertensionsildenafil continue OSAnoncompliant with CPAP likely dc next few days pending resp status improvement. Admission and Anticipated Discharge Date Admission Date: October 15, 2024 Subjective Patient seen and examined at bedside. Patient reports anxiety but being able to cope with it better now. Reports improving wheezing and sob, she feels tired, reports eating ok Reports improving chest pressure. Will give additional 20 mgi v lasix today. Physical Exam Physical Exam: Gen: A&O 3 NAD HEENT: NCAT, EOMI, not icteric. External ears normal. No rhinorrhea. Moist mucous membranes. Neck: Supple, full range of motion, no observable masses, No meningeal sign. Lungs: rhonchi/wheezing bilaterally --slow progress/improvement. CV: RRR, no edema. Abdomen: Soft, nondistended, No rebound tenderness. MSK: No joint swelling, no redness. Skin: No rashes, petechiae, lesions. Normal color per patient. Neuro: Normal Gait, Grossly intact. Psych: very anxious, tearful Results & Data Results & Data Vital Signs (Past 12 Hours) Vital Signs Temp Pulse Pulse Pulse Resp BP BP 10/22/24 14:27 73 10/22/24 14:19 65 18 10/22/24 12:09 36.5 C 69 17 138/85 10/22/24 09:18 10/22/24 08:02 36.4 C L 70 15 147/81 H 10/22/24 07:05 66 10/22/24 07:00 65 16 10/22/24 04:00 36.5 C 71 20 125/74 Pulse Ox O2 Del Method O2 Flow Rate 10/22/24 14:27 10/22/24 14:19 93 Nasal Cannula 2 10/22/24 12:09 96 Nasal Cannula 2 10/22/24 09:18 Room Air 10/22/24 08:02 91 Nasal Cannula 2 10/22/24 07:05 10/22/24 07:00 93 Room Air 10/22/24 04:00 96 Nasal Cannula 2
[2024-10-22] MEDS ORDERED: ACETYLCYSTEINE 20% INHAL SOLN 4ML ***DISPENSED BY RESP. INH SCH (19:00)
[2024-10-23 05:56] LABS: Hematocrit (blood only) 44.1 % (37.0-47.0); Hemoglobin 14.5 g/dl (12.0-16.0); Mean Corpuscular Hemoglobin 29.8 pg (25.0-34.0); Mean Corpuscular Hgb Conc 32.9 g/dL (32.0-36.0); Mean Corpuscular Volume 90.7 fL (80.0-100.0); Mean Platelet Volume 10.5 fL (9.4-12.4); Platelet Count 429 K/uL (130-400); RDW Coefficient of Variation 14.2 % (11.5-14.5); RDW Standard Deviation 47.5 fL (36.4-46.3); Red Blood Count 4.86 M/uL (4.20-5.40); White Blood Count 20.01 K/ul (4.8-10.8)
[2024-10-23 06:16] LABS: BUN Creatinine Ratio 42.7 (10-20); Calcium 8.2 mg/dl (8.6-10.3); Creatinine Clr Calc Pharmacy 69.1 ml/min; Magnesium 2.1 mg/dl (1.7-2.4); Potassium 4.1 mmol/L (3.5-5.1)
--- NOTE | 2024-10-23 08:59 | Pulmonology Progress Note ---
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 7 days of abx. Continue ICS and LABA nebs. Recommend 10 days prednisone taper at this time. CXR 10/21/24 CXR with bibasilar infiltrates. Repeat BNP and Pro-Arnaldo are normal 10/23/2024. Recommend using as needed Lasix when weight goes up and follow-up with the CHF clinic. I have encouraged the patient to ambulate in the hallways with supplemental oxygen if needed. Patient likely near or at the point of being able to be discharged home from a pulmonary perspective. Pulmonary to sign off at this point. Please call questions. Thank you for the consult. Admission and Anticipated Discharge Date Admission Date: October 15, 2024 Subjective Patient notes that her sleep has been poor and that she still feels fatigued. She does feel that her coughing and shortness of breath have improved. She has mostly nonproductive cough. She denies any chest pain, fevers, chills or night sweats. Review of Systems Review of Systems: All systems reviewed & are unremarkable except as noted in HPI & below Physical Exam Physical Exam: Constitutional: No acute distress HEENT: EOMI, PERRLA Respiratory system: Prolonged phase of exhalation. No wheezes CVS: S1-S2 positive, positive murmur Abdomen: Soft, nontender, nondistended, positive bowel sounds x4, obese Extremities: +2 pulses bilaterally radialis/ dorsalis pedis, no cyanosis, no edema Neuro: Awake alert oriented x3 Psych: Normal mood and affect Skin: no rashes, warm and dry Lymphatic: no cervical or axillary lymphadenopathy Results & Data Results & Data Vital Signs (Past 12 Hours) Vital Signs Temp Pulse Pulse Resp BP BP Pulse Ox 10/23/24 07:53 36.5 C 61 18 127/73 98 10/23/24 07:22 70 18 96 10/23/24 07:21 61 10/23/24 03:59 36.4 C L 70 18 114/64 94 10/23/24 00:37 68 17 98 10/22/24 23:30 36.3 C L 69 18 121/69 95 10/22/24 22:03 68 10/22/24 21:41 O2 Del Method O2 Flow Rate 10/23/24 07:53 Nasal Cannula 2 10/23/24 07:22 Nasal Cannula 2 10/23/24 07:21 10/23/24 03:59 Nasal Cannula 2 10/23/24 00:37 Nasal Cannula 1 10/22/24 23:30 Nasal Cannula 2 10/22/24 22:03 10/22/24 21:41 Nasal Cannula 2 PG Care Time/CCT Total # of Minutes Spent Total Time Spent with Patient: Total time spent is greater than 50% in coordination of care (as documented) at patient's floor/unit and/or counseling patient: Coding Level of Care Code 20321 SUB INP/OBS CARE 2MIN Diagnoses ILD (interstitial lung disease) J84.9 Combined pulmonary fibrosis and emphysema (CPFE) J43.9; J84.10 Acute exacerbation of chronic obstructive pulmonary disease J44.1 Obstructive sleep apnea G47.33 Class 3 obesity E66.01 Restrictive lung disease J98.4
[2024-10-23] MEDS: predniSONE 20 MG TAB PO SCH (09:07)
--- NOTE | 2024-10-23 13:54 | Discharge Summary ---
Date of Service October 23, 2024 Admission HPI Per Admitting Provider History obtained from interview with the patient and chart review Type 2 diabetes mellitus, hyperlipidemia, asthmaCOPD overlap, PARRIS, hypertension, GERD, pulmonary hypertension Patient presents to the hospital with shortness of breath; reports that she has increasing difficulty breathing over the course of the weekend. She reports that she started to have intermittent cough which was nonproductive, increasing shortness of breath requiring use of home oxygen. She denies fever, chills, chest pain, abdominal pain or urinary symptoms. No sick contacts. Reports that she is feeling very anxious due to loss of her son recently. On presentation to the ED, patient was afebrile, hemodynamic stable and was requiring 3 L of oxygen by nasal cannula. No leukocytosis present. Chest x-ray did not show any acute finding. Patient was given DuoNeb, IV methylprednisolone and was referred for admission. Admission Exam Per Admitting Provider Constitutional: WD/WN, vitals as above, NAD, sitting up in bed, pleasant, conversing easily Respiratory: Bilateral wheeze heard Cardiovascular: RRR, no murmur, no edema Vessels: no JVD or carotid bruit Chest: normal inspection of chest Abdomen: normal bowel sounds, soft, nontender, no hepatosplenomegaly Musculoskeletal: no cyanosis or clubbing, extremities motor strength 5/5 Skin: no rashes, warm and dry normal turgor Neurologic: PERRL, EOMI, accommodation nl, no face palsy, no dysarthria CN's II- XI intact bilaterally and moves all extremities Principal Diagnosis Acute Asthma/COPD exacerbation History of asthmaCOPD overlap Acute hypoxic respiratory failure Concern for RLL pneumonia Chest pressure ro ACS, ro cardiomyopathy Discharge Exam Gen: A&O 3 NAD HEENT: NCAT, EOMI, not icteric. External ears normal. No rhinorrhea. Moist mucous membranes. Neck: Supple, full range of motion, no observable masses, No meningeal sign. Lungs: rhonchi/wheezing bilaterally --improving CV: RRR, no edema. Abdomen: Soft, nondistended, No rebound tenderness. MSK: No joint swelling, no redness. Skin: No rashes, petechiae, lesions. Normal color per patient. Neuro: Normal Gait, Grossly intact. Psych: anxious Discharge Data Allergies Allergy/AdvReac Type Severity Reaction Status Date / Time No Known Allergies Allergy Unknown Verified 03/09/23 09:54 Consultations 10/15/24 16:10 ED Decision to Admit Stat 10/20/24 11:22 Consult Pulmonology Routine Ordered Studies 10/18/24 09:41 CT face [CT facial bones wo con] Routine CT head/brain wo con Routine Diabetes Follow up Diabetes Follow-up Needed for HgbA1c >9% Hospital Course (1) COPD (chronic obstructive pulmonary disease) with acute bronchitis: Plan 68 yo F was managed for the following: Acute Asthma/COPD exacerbation History of asthmaCOPD overlap Acute hypoxic respiratory failure RLL pneumonia -Patient presents with increasing shortness of breath for the last few days, admitting wbc wnl and cxr w/ no acute finding. -BNP, ECG, troponins reassuring at presentation. -Asthma/COPD most likely diagnosis, less likely [place] vs. other pathology given above Pulmonology evaluated, recommended 7-day antibiotic therapy and 10-day taper of p.o. steroid. Okay to discharge from their standpoint. Patient to continue with her home inhalers, Incruse and montelukast has been added this admission. Patient completed azithromycin course, will discharge on 2 days of cefdinir to complete 7 days antibiotic therapy for her pneumonia. Patient to get chest x-ray in about 6 weeks time to document resolution of pneumonia. Recommended pulmonary rehab upon discharge, patient to coordinate with PCP office to set up the referral. Patient reports significant improvement in her breathing, wheezing, cough. Patient is hemodynamically stable and would like to go home. Two-step test was done, patient is 2 L oxygen with activity, patient states that she has oxygen concentrator at home. Chest pressure ro ACS, ro cardiomyopathy: pt reports feeling chest pressure since she lost her son in mid August. Initial troponin elevated 10/17, then down trended, EKG with no acute ST or T changes. ECHO w/ EF of 60-65, grade I diastolic dysfunction, LV wall motion normal. Continue with telemonitoring. Cardio evaled, metoprolol dose increased; Aldactone added for chronic diastolic dysfunction. #Adjustment Disorder #Grief -related to 2 family members passing in past year Plan: -started buspar 5 tid and can uptitrate as needed, stopped xanax --> c/w buspar -started lexapro 10 mg daily in AM -- c/w lexapro. -psychology consult outpatient Type 2 diabetes mellitus continue on insulin Pulmonary hypertensionsildenafil continue OSAnoncompliant with CPAP Follow-up with your primary care physician within a week time and likely you will need labs CBC/CMP/magnesium/phosphorus. You were evaluated for acute exacerbation of asthma and COPD and also for concern of pneumonia. You will be discharged on antibiotic and steroid, complete the course as prescribed. You will benefit from repeating chest x-ray in about 6 weeks time upon discharge to document resolution of your pneumonia. Coordinate with your PCP office to set up the test. You will benefit from undergoing pulmonary function test in about 6 weeks time upon discharge, coordinate with your PCP office to set up the test. You will benefit from pulmonology rehab and psychology consult as an outpatient, coordinate with your PCP office to set up the referral. Take your medications as prescribed. Please make sure that you are able to get your medications today by calling your pharmacy before you leave the hospital so that your treatment continuity is not broken. Home Health Attestation I certify that this patient is under my care and that I, or a physicians criminal legal assistant working with me, had a face to-face encounter that meets the home health [id number] encounter requirements with this patient. The encounter with the patient was in whole, or in part, for the following medical condition, which is the primary reason for home health care (list medical condition): I certify that, based on my findings, the following services are medically necessary home health services: My clinical findings support the need for the above services because: Further, I certify that my clinical findings support that this patient is homebound (i.e. absences from home require considerable and taxing effort and are for medical reasons or anglican services or infrequently or of short duration when for other reasons) because: Certification for Home Health Services: Based on the above findings, I certify that this patient is confined to the home and needs intermittent mcc care, physical therapy and/or speech therapy or continues to need occupational therapy. The patient is under my care, and I have initiated the establishment of the plan of care. This patient will be followed by a physician who will periodically review the plan of care. Total Time Total Time Spent Total Time Spent (In Minutes): 45 Discharge Plan Discharge Items Patient Disposition: Home - Self-Care Reason For Visit: COPD EXCEREBATION Discharge Diagnosis: Acute Asthma/COPD exacerbation History of asthmaCOPD overlap Acute hypoxic respiratory failure Concern for RLL pneumonia Chest pressure ro ACS, ro cardiomyopathy Condition on Discharge: Fair Activity: Resume your previous activity Non-emergency contact: Primary Care Provider Call non-emergency contact if: you have any medication questions Follow-up/Referrals: Leighton Pinto DO [Primary Care Provider] - (The office will call you with a follow up appointment.) Diet: Carb Consistent or DM2 Addtl Attending Provider Instructions: Follow-up with your primary care physician within a week time and likely you will need labs CBC/CMP/magnesium/phosphorus. You were evaluated for acute exacerbation of asthma and COPD and also for concern of pneumonia. You will be discharged on antibiotic and steroid, com plete the course as prescribed. You will benefit from repeating chest x-ray in about 6 weeks time upon discharge to document resolution of your pneumonia. Coordinate with your PCP office to set up the test. You will benefit from undergoing pulmonary function test in about 6 weeks time upon discharge, coordinate with your PCP office to set up the test. You will benefit from pulmonology rehab and psychology consult as an outpatient, coordinate with your PCP office to set up the referral. Take your medications as prescribed. Please make sure that you are able to get your medications today by calling your pharmacy before you leave the hospital so that your treatment continuity is not broken. Pending Studies at Discharge: No Stand-Alone Forms: My [facility] [employer], Smoking Cessation Medications and DC Order Prescriptions: New cefdinir 300 mg Capsule 300 mg PO BID 2 Days Qty: 4 0RF Incruse Ellipta 62.5 mcg/actuation Blister With Device 1 inh inhalation DAILY Qty: 30 0RF metoprolol succinate 25 mg Tablet Extended Release 24 Hr 25 mg PO BID Qty: 60 0RF spironolactone 25 mg Tablet 12.5 mg PO DAILY Qty: 15 0RF buspirone 5 mg Tablet 5 mg PO TID Qty: 90 0RF escitalopram oxalate 10 mg Tablet 10 mg PO QAM Qty: 30 0RF Advanced Probiotic 625 mg (10 billion cell) Capsule 1 cap PO DAILY 7 Days Qty: 7 0RF pantoprazole 40 mg Tablet,Delayed Release (Dr/Ec) 40 mg PO QAM 10 Days Qty: 10 0RF Rx Instructions: 1 tab daily for the duration of steroid therapy. prednisone 20 mg Tablet 40 mg PO UD Qty: 16 0RF Rx Instructions: 2 tabs daily x 6 days, then 1 tab daily x 4 days then stop. dextromethorphan-guaifenesin 10-100 mg/5 mL Syrup 5 ml PO Q6H PRN (Reason: cough) 7 Days Qty: 500 0RF montelukast 10 mg Tablet 10 mg PO HS Qty: 30 0RF Continued (DME) FreeStyle Ling 3 Sensor Device See Rx Instructions .Route Qty: 2 11RF Rx Instructions: Chane every 14 days Fiasp FlexTouch U-100 Insulin 100 unit/mL (3 mL) insulin pen 10 unit subcut TIDM MDD 30 units Qty: 30 0RF Rx Instructions: subcutaneously; subcutaneously; 10 units with each meal insulin degludec [Tresiba FlexTouch U-100] 100 unit/mL (3 mL) insulin pen 20 unit subcut HS MDD 30 units Qty: 30 1RF (DME) nebulizer accessories Misc See Rx Instructions .Route Qty: 1 0RF Rx Instructions: As directed (DME) nebulizer and compressor Device See Rx Instructions .ROUTE .MEDSUPPLY Qty: 1 0RF Rx Instructions: As directed (DME) CPAP Machine Misc See Rx Instructions .Route Qty: 1 0RF Hold Instructions: not using Rx Instructions: 5 cm h20, c-flex of 2, 1L of o2 bled in (DME) CPAP Supplies Misc See Rx Instructions .ROUTE .MEDSUPPLY Qty: 1 0RF Hold Instructions: not using Rx Instructions: CPAP supplies fluticasone propion-salmeterol [Advair Diskus] 250-50 mcg/dose blister with device 1 inh inhalation UD PRN (Reason: asthma/copd) arformoterol [Brovana] 15 mcg/2 mL solution for nebulization 2 ml inhalation UD PRN (Reason: asthma/copd) levalbuterol HCl 1.25 mg/3 mL solution for nebulization 1.25 mg NEB Q4H PRN (Reason: asthma/copd) furosemide [Lasix] 20 mg tablet 40 mg PO UD PRN (Reason: Edema) Patient Comments: haven't taken for a long time. albuterol sulfate 90 mcg/actuation HFA aerosol inhaler 2 inh inhalation QID PRN (Reason: asthma/copd) sildenafil (pulm.hypertension) [Revatio] 20 mg tablet 10 mg PO TID Changed tramadol 50 mg tablet 25 mg PO Q8H PRN (Reason: pain) Qty: 10 0RF Discontinued metoprolol succinate 25 mg Tablet Extended Release 24 Hr 12.5 mg PO TID Qty: 0 0RF Discharge Orders: Discharge Order (Routine); Ordered 10/23/24 Ordered By: Jean Vincent Admission Data Admit Date/Time: 10/15/24 16:49 Attending Provider: Jean Vincent Admit Provider: Luis Crawley Primary Care Provider: Leighton Pinto Other Providers: Luis Crawley; Malachi Larsen
[2024-10-23 14:59] VITALS: RESP 18; TEMP 97.9; O2SAT 95
[2024-10-23] MEDS: CEFDINIR 300 MG CAP PO SCH (15:04)
[2024-10-23 15:43] VITALS: BP 114/64; PULSE 69
== END 2024-10-23 16:29 | disposition home or self-care (01) | DRG 190 ==
LOC: ED 12:14 → EDINP 16:49 → SUATTDRO 16:49 → 2N 20:06

== ENCOUNTER 2025-05-18 17:10 | Inpatient (IN) ==
--- NOTE | 2025-05-18 18:25 | Emergency Department Note ---
Impression & Plan Diverticulitis of colon with perforation, Pneumoperitoneum ED Provider Note CHIEF COMPLAINT: Abdominal pain HISTORY OF PRESENTING ILLNESS: This 69-year-old female patient presents to the emergency department with her for evaluation of abdominal pain. The patient states that she was driving home from [facility] yesterday morning and developed sudden abdominal pain at 10 AM yesterday morning. The pain radiated to her lower back as well. The pain is rated as 10 out of 10 and constant. Pain is now worse in the lower abdomen bilaterally. She is having nausea and vomiting and cannot keep anything down. She feels dry and dehydrated. She had a low grade fever yesterday, but none today. She denies any chest pain. She has shortness of breath at baseline from her asthma, but denies any changes. She had C-sections, but no other abdominal surgeries. Movement makes the pain worse. A little improvement in the pain with laying flat, but still painful. She has had some dribbling of her urine recently. Denies constipation, diarrhea, or changes in her bowel movements. Her vomit is green in color. She is having a headache as well. She had laser surgery 1 week ago and has had some photophobia since that time which she thinks may be contributing to her headache. She has a history of acid reflux. She is on Eliquis. REVIEW OF SYSTEMS: See HPI for pertinent positives and pertinent negatives. ALLERGIES: NKDA MEDICATIONS: See below PAST MEDICAL HISTORY: See below PHYSICAL EXAM: VITALS: Vitals are noted on the nurse's note and reviewed by myself. GENERAL: Non toxic, in no acute distress, non-diaphoretic. SKIN: Capillary refill <2 sec. EYES: PERRLA. EOMI. Conjunctivae without injection, sclerae without icterus. NOSE: Patent without discharge. MOUTH: Mucous membranes moist. Uvula midline. Airway patent. NECK: Supple without nuchal rigidity. HEART: Regular rate and rhythm without murmurs gallops or rubs. LUNGS: Clear to auscultation bilaterally without wheezes, rales or rhonchi. No retractions or accessory muscle use. ABDOMEN: Positive bowel sounds x 4. Normal tympanic percussion. Soft, diffusely tender to palpation with worsening pain on the left side of the abdomen. No masses or hepatosplenomegaly. Muller sign negative. No CVA tenderness. No guarding, rigidity, or rebound tenderness. NEURO: Patient was alert and oriented. No focal neurological deficits. DIFFERENTIAL DIAGNOSIS: Differential diagnosis includes hepatitis, pancreatitis, cholecystitis, cholelithiasis, appendicitis, kidney stone, pyelonephritis, UTI, gastritis, gastroenteritis, mesenteric adenitis, obstruction, constipation, hernia, abdominal abscess, perforation, diverticulitis, IBD, ischemic colitis, abdominal aortic aneurysm, , ectopic , ovarian cyst, ovarian torsion, acute salpingitis, or others. ED COURSE AND MEDICAL DECISION MAKING: HISTORY FROM INDEPENDENT HISTORIAN: Additional history obtained from the patient's MEDICATIONS GIVEN: 1.5 L normal saline solution bolus. Tylenol 1000 mg IV, Zofran 4 mg IV. Fentanyl 50 mcg IV. Fentanyl 25 mcg IV. Zosyn 4.5 g IV. MONITOR: Continuous waste collector: Order was placed for continuous waste collector. Patient was placed on the waste collector and continuous pulse ox. Patient was noted to be in normal sinus rhythm at an initial rate of 96 bpm per my interpretation. INTERPRETATION OF LABS: I interpreted the labs with full lab results as below in the lab section of this note. Laboratory results pertinent to the emergent complaint are discussed in the MDM section below. The patient was advised to follow up with their PCP and/or specialist(s) for further outpatient monitoring and management of any abnormal results. INTERPRETATION OF IMAGING: Imaging studies were interpreted by myself and read by radiology as per the imaging section of this note. The patient was advised to follow up with their PCP and/or specialist(s) for further outpatient management of any non-emergent abnormal findings. Chest x-ray showed chronic pulmonary scarring. Superimposed left basilar infiltrate cannot be excluded. CT scan of the abdomen and pelvis with IV contrast shows extensive diverticulosis throughout the proximal sigmoid colon. There is mucosal thickening with pericolonic fat stranding and regional pneumoperitoneum which appears to extend from the bowel lumen laterally. There is a localized fluid and gas collection posterior lateral to the sigmoid colon measuring 1.6 x 7.3 x 7.3 cm. There is also pneumoperitoneum surrounding the sigmoid colon and along the anterior aspect of the abdomen. Findings are consistent with perforated sigmoid diverticulitis. CONSULTATIONS: Dr. Keith Lozano, radiologist for [facility]. Rodriguez Cerda PA-C of general surgery. On-call hospitalist. MDM SUMMARY: I examined the patient. The patient started with abdominal pain yesterday and it is getting progressively worse. The pain is diffuse, but more localized to the left side of the abdomen. She had a fever yesterday, but not today. She has also been having nausea and vomiting and having trouble keeping fluids down. An IV lock was placed and labs were drawn. The patient was given 1 L normal saline solution bolus. She was given Tylenol 1000 mg IV and Zofran 4 mg IV. She was then given fentanyl 50 mcg IV followed by fentanyl 25 mcg IV. Nursing staff placed the patient on 2 L of oxygen by nasal cannula as the patient had some apneic spells while laying flat and sleeping in the ER. She does have a history of sleep apnea. White blood cell count elevated 18.73. Hemoglobin normal at 15. Platelet count normal at 347. INR 1.2 and PT 12.8. Sodium low at 132, chloride low at 94, calcium low at 8.4, and glucose elevated at 269. Total bilirubin elevated at 3.1, but other LFTs are normal. CMP otherwise without concerning abnormalities. Lipase normal. Magnesium normal. High-sensitivity troponin normal. Initial lactate normal at 2.0 with repeat normal at 1.7. The patient was unable to give a urine sample while in the ER. Chest x-ray showed chronic pulmonary scarring. Superimposed left basilar infiltrate cannot be excluded. CT scan of the abdomen and pelvis with IV contrast shows extensive diverticulosis throughout the proximal sigmoid colon. There is mucosal thickening with pericolonic fat stranding and regional pneumoperitoneum which appears to extend from the bowel lumen laterally. There is a localized fluid and gas collection posterior lateral to the sigmoid colon measuring 1.6 x 7.3 x 7.3 cm. There is also pneumoperitoneum surrounding the sigmoid colon and along the anterior aspect of the abdomen. Findings are consistent with perforated sigmoid diverticulitis. The radiologist from [facility] called me in regards to the results. Blood cultures were obtained. The patient was given another 500 mL NSS bolus. The patient was given Zosyn 4.5 g IV. The patient's initial lactate was normal at 2.0, but repeat lactate was obtained due to the elevated white blood cell count as well as the significant CT scan findings. The repeat lactate was improved to 1.7. I had a meaningful discussion about this patient with Dr. Yost who agrees with my assessment and the treatment plan. I spoke with Rodriguez Cerda PA-C of general surgery. Who recommended the patient be admitted to medicine and he would be down to evaluate the patient in the ER. After his evaluation, he stated they were going to try nonoperative management. He recommended the patient be strict n.p.o. with IV antibiotics and IV fluids. I spoke with the on-call hospitalist who agreed to admit the patient for further evaluation and treatment. Please refer to their dictation for further details. The patient's care was transferred in stable condition. DIAGNOSIS: Perforated sigmoid diverticulitis with pneumoperitoneum Past Med/Surg History Problem List (Updated 05/18/25 @ 23:56 by Meagan Knight PA-C) Pneumoperitoneum (Acute) Diverticulitis of colon with perforation (Acute) Diverticulitis Acute pain of left lower extremity Acute pulmonary embolism without acute cor pulmonale Acute deep vein thrombosis of left lower extremity DVT (deep venous thrombosis) (Acute) Pulmonary embolism (Acute) Restrictive lung disease Combined pulmonary fibrosis and emphysema (CPFE) ILD (interstitial lung disease) Grief reaction Elevated troponin Atypical chest pain Acute exacerbation of chronic obstructive pulmonary disease (Acute) Encounter for pre-operative examination GERD (gastroesophageal reflux disease) Asthma Pulmonary hypertension HTN (hypertension) Obstructive sleep apnea Dysphagia Chronic respiratory failure with hypoxia Vitamin D deficiency Class 3 obesity Poorly controlled type 2 diabetes mellitus Proliferative diabetic retinopathy associated with type 2 diabetes mellitus Anxiety and depression Dyslipidemia Medical History Sleep apnea inconsistent use/toleration issues. Nausea and vomiting after administration of anesthetic agent Neuropathy legs/stimular for right side/doesn't work battery is . Diabetic retinopathy injections for / most recent 3 wks ago/upcoming Mar 18 2023. Chronic cough no change in baseline. Oxygen deficiency o2 2-3L prn. Last need of oxygen September 2022. baseline oxygen sat 88 %, recently been in the 90s. COPD (chronic obstructive pulmonary disease) denies recent flares. Asthma last use rescue inhler 1 wk or so ago. Denies recent flares. HTN (hypertension) Type 2 diabetes mellitus History of fracture of leg Right femoral condyle fracture 2021/no sx intervention as of current/knee replacement was advised. B12 deficiency hx History of COVID-19 Pneumonia with ARDS in 2020, 3 months hospitalization, shorter hospitalization in 2022. Surgical History History of cataract surgery right and left. History of bilateral breast reduction surgery History of surgery stimulator placement. History of x2 History of back surgery History of hysterectomy History of colonoscopy Family History Father Stroke Heart disease Cancer skin Mother Breast cancer Grandmother (Paternal) Breast cancer Social History Smoking Status: Former smoker Tobacco Type: Cigarettes Second Hand Exposure: No; Do You Dip or Chew Tobacco: No; Hx Alcohol Use: Yes Alcohol type: beer Hx Substance Use: No Preferred Language: Tajik Communication Ability: Effective Buffer Operator Required: No Beliefs That Will Affect Care: None Current Living Situation: Spouse Current Living Situation Comment: daughter (handicap) Feels Safe at Home: Yes Assistive Devices: Cane, Oxygen - Continuous and Walker Allergies Allergies Allergy/AdvReac Type Severity Reaction Status Date / Time No Known Allergies Allergy Unknown Verified 03/09/23 09:54 Home Meds Home Medications Medication Instructions Recorded Confirmed levalbuterol HCl 1.25 mg/3 mL 1.25 mg NEB Q4H PRN asthma/copd 08/04/22 05/18/25 solution for nebulization arformoterol 15 mcg/2 mL solution 2 ml inhalation UD PRN asthma/copd 11/05/22 05/18/25 for nebulization (Brovana) fluticasone 250 mcg-salmeterol 50 1 inh inhalation UD asthma/copd 11/05/22 05/18/25 mcg/dose blistr powdr for inhalation (Advair Diskus) furosemide 20 mg tablet (Lasix) 40 mg PO UD PRN Edema 11/05/22 05/18/25 sildenafil (pulm.hypertension) 20 10 mg PO TID 03/09/23 11/10/24 mg tablet (Revatio) alendronate 70 mg tablet 70 mg PO WK 05/18/25 05/18/25 bupropion HCl 150 mg 24 hr tablet, 150 mg PO DAILY 05/18/25 05/18/25 extended release prednisolone acetate 1 % eye 1 drp QID 05/18/25 05/18/25 drops,suspension Previous Rx's Medication Instructions Recorded nebulizer accessories #1 ea 01/21/22 nebulizer and compressor #1 ea 01/21/22 CPAP Machine #1 ea 05/18/22 CPAP Supplies #1 ea 05/18/22 blood-glucose sensor (FreeStyle #2 ea 01/06/23 Ling 3 Sensor device) Tresiba FlexTouch U-100 100 20 unit (0.2 mL) subcut HS #30 mL 07/11/23 unit/mL (3 mL) subcutaneous pen (insulin degludec) insulin aspart 10 unit subcut TIDM #30 mL 07/11/23 (niacinamide)(U-100) 100 unit/mL(3 mL) subcutaneous pen (Fiasp FlexTouch U-100 Insulin) escitalopram oxalate 10 mg tablet 10 mg PO QAM #30 tabs 10/23/24 metoprolol succinate 25 mg 25 mg PO BID #60 tabs 10/23/24 tablet,extended release 24 hr montelukast 10 mg tablet 10 mg PO HS #30 tabs 10/23/24 spironolactone 25 mg tablet 12.5 mg (1/2 x 25 mg) PO DAILY #15 10/23/24 tabs umeclidinium 62.5 mcg/actuation 1 inh inhalation DAILY #30 ea 10/23/24 blister powder for inhalation (Incruse Ellipta) apixaban 5 mg tablet (Eliquis) 5 mg PO BID #60 tabs 11/17/24 Results & Data (ED) Vital Signs Vital Signs - 24 hr 05/18/25 17:24 05/18/25 17:27 05/18/25 17:28 Temperature 36.9 C Temperature Source Oral Pulse Rate 94 H 95 H 95 H Pulse Rate from SpO2 Sensor 95 H Respiratory Rate 21 23 Blood Pressure 143/72 H 143/72 H Blood Pressure Mean 95 95 Pulse Oximetry 92 96 Oxygen Delivery Method Room Air Nasal Cannula Oxygen Flow Rate 2 Sepsis Recent Fever Within 48 Hours Yes Sepsis New/Unexplained Change in Mental Status N/A Sepsis Action Taken by Nursing No Action Required 05/18/25 18:30 05/18/25 18:42 05/18/25 19:00 Temperature Temperature Source Pulse Rate 100 H 97 H 98 H Pulse Rate from SpO2 Sensor 100 H 98 H 98 H Respiratory Rate 24 24 23 Blood Pressure 122/96 122/96 135/79 Blood Pressure Mean 104 104 97 Pulse Oximetry 96 96 97 Oxygen Delivery Method Nasal Cannula Nasal Cannula Nasal Cannula Oxygen Flow Rate 2 2 2 Sepsis Recent Fever Within 48 Hours Sepsis New/Unexplained Change in Mental Status Sepsis Action Taken by Nursing 05/18/25 20:03 05/18/25 20:12 05/18/25 20:42 Temperature Temperature Source Pulse Rate 98 H 96 H 93 H Pulse Rate from SpO2 Sensor 98 H 96 H 93 H Respiratory Rate 19 21 18 Blood Pressure 116/68 100/76 118/90 Blood Pressure Mean 84 84 99 Pulse Oximetry 97 96 98 Oxygen Delivery Method Nasal Cannula Nasal Cannula Nasal Cannula Oxygen Flow Rate 2 2 2 Sepsis Recent Fever Within 48 Hours Sepsis New/Unexplained Change in Mental Status Sepsis Action Taken by Nursing 05/18/25 21:23 05/18/25 21:42 05/18/25 22:00 Temperature Temperature Source Pulse Rate 92 H 89 91 H Pulse Rate from SpO2 Sensor 90 91 H Respiratory Rate 22 19 Blood Pressure 173/86 H 171/77 H Blood Pressure Mean 115 108 Pulse Oximetry 98 98 Oxygen Delivery Method Nasal Cannula Nasal Cannula Oxygen Flow Rate 2 2 Sepsis Recent Fever Within 48 Hours Sepsis New/Unexplained Change in Mental Status Sepsis Action Taken by Nursing Laboratory Data 05/18/25 18:12 05/18/25 22:33 Lab Results 05/18/25 05/18/25 Range/Units 18:12 22:20 WBC 18.73 H (4.8-10.8) K/ul RBC 4.82 (4.20-5.40) M/uL Hgb 15.0 (12.0-16.0) g/dL Hct 43.3 (37.0-47.0) % MCV 89.8 (80.0-100.0) fL MCH 31.1 (25.0-34.0) pg MCHC 34.6 (32.0-36.0) g/dL RDW Std Deviation 48.3 H (36.4-46.3) fL RDW Coeff of Ralf 16.1 H (11.5-14.5) % Plt Count 347 (130-400) K/uL MPV 10.8 (9.4-12.4) fL Immature Gran % (Auto) 0.4 % Neut % (Auto) 88.2 % Lymph % (Auto) 5.2 % Walton % (Auto) 5.7 % Eos % (Auto) 0.0 % Baso % (Auto) 0.5 % Neut # (Auto) 16.51 H (1.40-6.50) K/uL Lymph # (Auto) 0.98 L (1.20-3.40) K/uL Walton # (Auto) 1.07 H (0.11-0.59) K/uL Eos # (Auto) 0.00 (0.00-0.50) K/uL Baso # (Auto) 0.09 (0.00-0.20) K/uL Immature Gran # (Auto) 0.08 (0.01-0.20) K/uL PT 12.8 H (9.0-12.0) Seconds INR 1.2 H (0.9-1.1) APTT 25 (21-31) Seconds PTT Ratio 0.9 Sodium 130 L (136-145) mmol/L Potassium 4.0 (3.5-5.1) mmol/L Chloride 94 L (98-107) mmol/L Carbon Dioxide 26 (21-32) mmol/L Anion Gap 10 (3-11) BUN 23 (6-23) mg/dl Creatinine 0.88 (0.6-1.2) mg/dl Est Cr Clr Drug Dosing 64.5 ml/min eGFR 71.09 BUN/Creatinine Ratio 26.1 H (10-20) Glucose 269 H (70-99(Fasting)) mg/dl Lactate 2.0 1.7 (0.4-2.0) mmol/L Calcium 8.4 L (8.6-10.3) mg/dl Total Bilirubin 3.1 H (0.2-1.0) mg/dl AST 17 (13-39) U/L ALT 11 (7-52) U/L Alkaline Phosphatase 86 (34-104) U/L Troponin I High Sens 10.9 (0-14) pg/ml Total Protein 6.7 (6.0-8.3) gm/dl Albumin 3.4 (3.4-5.0) gm/dl Globulin 3.3 (2.5-4.0) gm/dl Albumin/Globulin Ratio 1.0 (0.9-2) Lipase < 3 L (11-82) U/L Administered Medications Discontinued Medications Fentanyl Citrate (Fentanyl Citrate Pf 100 Mcg/2 Ml Vial) 50 mcg IV NOW STA Stop: 05/18/25 18:37 Last Admin: 05/18/25 19:02 Dose: 50 mcg Documented By: LISA Fentanyl Citrate (Fentanyl Citrate Pf 100 Mcg/2 Ml Vial) 25 mcg IV NOW ONE Stop: 05/18/25 22:01 Last Admin: 05/18/25 22:17 Dose: 25 mcg Documented By: HELEN Sodium Chloride (Nss) 1,000 mls @ 999 mls/hr IV .Q1H1M ONE Stop: 05/18/25 18:30 Last Infusion: 05/18/25 19:48 Dose: Infused Documented By: Admin: 05/18/25 18:31 Dose: 999 mls/hr Documented By: HELEN Acetaminophen (Ofirmev) 1,000 mg in 100 mls @ 400 mls/hr IV NOW STA Stop: 05/18/25 18:50 Last Infusion: 05/18/25 19:48 Dose: Infused Documented By: Admin: 05/18/25 19:02 Dose: 400 mls/hr Documented By: LISA Piperacillin Sod/Tazobactam Sod (Zosyn) 4.5 gm in 100 mls @ 200 mls/hr IV NOW ONE; Protocol Stop: 05/18/25 22:27 Last Infusion: 05/18/25 23:12 Dose: Infused Documented By: Admin: 05/18/25 22:41 Dose: 200 mls/hr Documented By: HELEN Sodium Chloride (Nss) 500 mls @ 999 mls/hr IV .Q31M ONE Stop: 05/18/25 22:30 Last Infusion: 05/18/25 23:12 Dose: Infused Documented By: Admin: 05/18/25 22:17 Dose: 999 mls/hr Documented By: HELEN Ioversol (Optiray 320 100ml) 90 ml IV ONCE ONE Stop: 05/18/25 19:49 Last Admin: 05/18/25 19:54 Dose: 90 ml Documented By: RADHA Ondansetron HCl (Ondansetron Inj 2 Mg/Ml 2 Ml Vial) 4 mg IV NOW STA Stop: 05/18/25 17:31 Last Admin: 05/18/25 18:31 Dose: 4 mg Documented By: HELEN Imaging Data Radiologist's Impression: Abdomen/Pelvis CT 05/18/25 17:30 CR Exam(s): CT ABDOMEN + PELVIS With Contrast IV Amt: 90 ml optiray 320 EXAM: CT Abdomen and Pelvis With Intravenous Contrast CLINICAL HISTORY: left sided abd pain. TECHNIQUE: Axial computed tomography images of the abdomen and pelvis with intravenous contrast. CTDI is 27 mGy and DLP is 1408 mGy-cm. Automated exposure control was utilized for the study. A dose lowering technique was utilized adhering to the principles of ALARA. CONTRAST: Patient received 90 ml optiray 320 of IV contrast COMPARISON: Ultrasound gallbladder 10/06/2010 FINDINGS: Limitations: There is respiratory artifact, which degrades image quality on multiple image slices. Lung bases: No significant abnormality. No mass. No consolidation. ABDOMEN: Liver: No significant abnormality. No mass. Gallbladder and bile ducts: No significant abnormality. No calcified stones. No ductal dilation. Pancreas: No significant abnormality. No mass. No ductal dilation. Spleen: No significant abnormality. No splenomegaly. Adrenals: No significant abnormality. No mass. Kidneys and ureters: No significant abnormality. No solid mass. No hydronephrosis. Stomach and bowel: No evidence for focal high-grade bowel obstruction. There is extensive diverticulosis throughout the proximal sigmoid colon. There is mucosal thickening with pericolonic fat stranding and regional pneumoperitoneum which appears to extend from the bowel lumen laterally (series 300; images 39-40). There is a localized fluid and gas collection posterolateral to the sigmoid colon, measuring 1.6 x 7.3 x 7.3 cm. PELVIS: Appendix: The appendix is not clearly delineated and may be surgically absent. Bladder: No significant abnormality. No mass. Reproductive: Status post hysterectomy. ABDOMEN and PELVIS: Intraperitoneal space: There is also pneumoperitoneum surrounding the sigmoid colon and along the anterior aspect of the abdomen. Bones/joints: No acute fracture. No dislocation. Soft tissues: No significant abnormality. Vasculature: No significant abnormality. No abdominal aortic aneurysm. Lymph nodes: No significant abnormality. No enlarged lymph nodes. IMPRESSION: No evidence for focal high-grade bowel obstruction. There is extensive diverticulosis throughout the proximal sigmoid colon. There is mucosal thickening with pericolonic fat stranding and regional pneumoperitoneum which appears to extend from the bowel lumen laterally (series 300; images 39-40). There is a localized fluid and gas collection posterolateral to the sigmoid colon, measuring 1.6 x 7.3 x 7.3 cm. There is also pneumoperitoneum surrounding the sigmoid colon and along the anterior aspect of the abdomen. Findings are consistent with perforated sigmoid diverticulitis. Communications: Call Doctor Pneumoperitoneum, new or unexpected Electronically signed by: Keith Segura MD 05/18/25 21:51 PM Chest X-Ray 05/18/25 18:36 COMPARISON: 11/10/2024 FINDINGS: HEART: Normal in size. LUNGS: Chronic increased interstitial lung markings. Pulmonary scarring. Superimposed left basilar infiltrate cannot be excluded. No pneumothorax. MEEDIASTINUM: Mild mediastinal prominence. BONES: Intact. OTHER: Mediport catheter remains in place. Elevated right hemidiaphragm IMPRESSION: Chronic pulmonary scarring. Superimposed left basilar infiltrate cannot be excluded. Electronically signed by Yamil Cox 05-18-2025 7:33 PM Discharge Plan Visit Data Chief Complaint: Abdominal Pain Stated Complaint: Stomach pain ED Provider: Cj Yost ED Midlevel Provider: Meagan Knight Discharge Problem: Diverticulitis of colon with perforation, Pneumoperitoneum Patient Disposition: Admitted As Inpatient Condition: Fair Discharge Instructions Interventions: ED Discharge Assessment Last Done: 05/18/25 23:10
[2025-05-18] MEDS: SODIUM CHLORIDE 0.9% 1,000 ML IV ONE (18:31)
[2025-05-18] MEDS: ONDANSETRON INJ 2 MG/ML 2 ML VIAL IV STA (18:31)
[2025-05-18 18:35] LABS: Hematocrit (blood only) 43.3 % (37.0-47.0); Hemoglobin 15.0 g/dL (12.0-16.0); Mean Corpuscular Hemoglobin 31.1 pg (25.0-34.0); Mean Corpuscular Volume 89.8 fL (80.0-100.0); Platelet Count 347 K/uL (130-400); RDW Standard Deviation 48.3 fL (36.4-46.3); Red Blood Count 4.82 M/uL (4.20-5.40); White Blood Count 18.73 K/ul (4.8-10.8)
[2025-05-18 18:52] LABS: Anion Gap 10 (3-11); Blood Urea Nitrogen 23 mg/dl (6-23); Calcium 8.4 mg/dl (8.6-10.3); Carbon Dioxide 26 mmol/L (21-32); Chloride 94 mmol/L (98-107); Creatinine Clr Calc Pharmacy 64.5 ml/min; Glucose 269 mg/dl (70-99(Fasting)); Potassium 4.0 mmol/L (3.5-5.1); Sodium 130 mmol/L (136-145)
[2025-05-18 18:59] LABS: Immature Granulocytes # (auto) 0.08 K/uL (0.01-0.20); Immature Granulocytes % (auto) 0.4 %
[2025-05-18] MEDS: ACETAMINOPHEN 1,000 MG/100 ML VIAL IV STA (19:02)
[2025-05-18 19:03] LABS: Alanine Aminotransferase 11 U/L (7-52); Albumin Globulin Ratio 1.0 (0.9-2); Albumin Level 3.4 gm/dl (3.4-5.0); Alkaline Phosphatase 86 U/L (34-104); Bilirubin,Total 3.1 mg/dl (0.2-1.0); Globulin 3.3 gm/dl (2.5-4.0); Lipase < 3 U/L (11-82); Total Protein 6.7 gm/dl (6.0-8.3)
[2025-05-18 19:17] LABS: INR 1.2 (0.9-1.1); Partial Thromboplastin Time 25 Seconds (21-31); Prothrombin Time 12.8 Seconds (9.0-12.0)
--- NOTE | 2025-05-18 19:33 | XRay Report ---
COMPARISON: 11/10/2024 FINDINGS: HEART: Normal in size. LUNGS: Chronic increased interstitial lung markings. Pulmonary scarring. Superimposed left basilar infiltrate cannot be excluded. No pneumothorax. MEEDIASTINUM: Mild mediastinal prominence. BONES: Intact. OTHER: Mediport catheter remains in place. Elevated right hemidiaphragm IMPRESSION: Chronic pulmonary scarring. Superimposed left basilar infiltrate cannot be excluded. Electronically signed by Yamil Cox 05-18-2025 7:33 PM
[2025-05-18] MEDS: OPTIRAY 320 100ml IV ONE (19:54)
--- NOTE | 2025-05-18 21:53 | CT Scan Report ---
Exam(s): CT ABDOMEN + PELVIS With Contrast IV Amt: 90 ml optiray 320 EXAM: CT Abdomen and Pelvis With Intravenous Contrast CLINICAL HISTORY: left sided abd pain. TECHNIQUE: Axial computed tomography images of the abdomen and pelvis with intravenous contrast. CTDI is 27 mGy and DLP is 1408 mGy-cm. Automated exposure control was utilized for the study. A dose lowering technique was utilized adhering to the principles of ALARA. CONTRAST: Patient received 90 ml optiray 320 of IV contrast COMPARISON: Ultrasound gallbladder 10/06/2010 FINDINGS: Limitations: There is respiratory artifact, which degrades image quality on multiple image slices. Lung bases: No significant abnormality. No mass. No consolidation. ABDOMEN: Liver: No significant abnormality. No mass. Gallbladder and bile ducts: No significant abnormality. No calcified stones. No ductal dilation. Pancreas: No significant abnormality. No mass. No ductal dilation. Spleen: No significant abnormality. No splenomegaly. Adrenals: No significant abnormality. No mass. Kidneys and ureters: No significant abnormality. No solid mass. No hydronephrosis. Stomach and bowel: No evidence for focal high-grade bowel obstruction. There is extensive diverticulosis throughout the proximal sigmoid colon. There is mucosal thickening with pericolonic fat stranding and regional pneumoperitoneum which appears to extend from the bowel lumen laterally (series 300; images 39-40). There is a localized fluid and gas collection posterolateral to the sigmoid colon, measuring 1.6 x 7.3 x 7.3 cm. PELVIS: Appendix: The appendix is not clearly delineated and may be surgically absent. Bladder: No significant abnormality. No mass. Reproductive: Status post hysterectomy. ABDOMEN and PELVIS: Intraperitoneal space: There is also pneumoperitoneum surrounding the sigmoid colon and along the anterior aspect of the abdomen. Bones/joints: No acute fracture. No dislocation. Soft tissues: No significant abnormality. Vasculature: No significant abnormality. No abdominal aortic aneurysm. Lymph nodes: No significant abnormality. No enlarged lymph nodes. IMPRESSION: No evidence for focal high-grade bowel obstruction. There is extensive diverticulosis throughout the proximal sigmoid colon. There is mucosal thickening with pericolonic fat stranding and regional pneumoperitoneum which appears to extend from the bowel lumen laterally (series 300; images 39-40). There is a localized fluid and gas collection posterolateral to the sigmoid colon, measuring 1.6 x 7.3 x 7.3 cm. There is also pneumoperitoneum surrounding the sigmoid colon and along the anterior aspect of the abdomen. Findings are consistent with perforated sigmoid diverticulitis. Communications: Call Doctor Pneumoperitoneum, new or unexpected Electronically signed by: Keith Segura MD 05/18/25 21:51 PM
--- NOTE | 2025-05-18 22:13 | History & Physical Report ---
Date of Service May 18, 2025 Assessment & Plan (1) Sepsis: Plan: Assessment and plan below following discussion of case with ED provider and reviewing patient history/pertinent normal/abnormal diagnostic test results. Sepsis Secondary to perforated sigmoid diverticulitis hypertension, elevated secondary to illness hyperlipidemia, on statin Rx hx PE on Eliquis COPD/ILD/asthma, patient with dry cough symptoms, no wheezing on exam PARRIS on CPAP DM2 on oral medications, suboptimal control as of recent hemoglobin A1c of 8.21 March 2025 mood disorder, stable past tobacco abuse Admit to med/tele CS, Zosyn General Surgery consult re: perforated sigmoid diverticulitis (Patient already seen by provider at the ER who recommends strict n.p.o. status and antibiotic administration.) Basal bolus insulin adjusted for n.p.o. status, ISS BG goal 110-140 Hold Eliquis for now, low-dose IV heparin while Eliquis on hold Full code Text document was generated using Marfeel voice recognition software. It may contain grammatical or spelling errors. Kindly contact undersigned for clarification of any documentation item in question. History of Present Illness Chief Complaint: Abdominal pain Primary Care Provider: Dr. Galicia History obtained from patient and records. Medical history significant for hypertension, hyperlipidemia, PE on Eliquis, COPD/ILD/asthma, PARRIS on CPAP, DM2 on oral medications, diverticulosis, colonic polyps, mood disorder, recent cataract surgery (current postop steroid drop regimen), past tobacco abuse. Last confinement October 2024 for acute PE DVT following recent confinement for pneumonia. Patient was spent Thanksgiving at [place] 4 days ago. Dry cough symptoms without chest pain or SOB. No aspiration. Patient noted achy left-sided abdominal pain while driving back home to [place] yesterday. Achy headache symptoms. Abdominal pain worse with cough. Low-grade fever at home. Nausea and bilious emesis symptoms. IV Zosyn administered at the ER for bowel sepsis. Medical History as above 2006 colonoscopy showed diverticulosis and polyps Surgical History : cataract surgeries breast reduction, LUI Family History : Breast cancer, brain tumor, heart disease, stroke Personal/Social history : Past tobacco abuse, occasional EtOH intake Allergies Allergy/AdvReac Type Severity Reaction Status Date / Time No Known Allergies Allergy Unknown Verified 03/09/23 09:54 Home Medications Medication Instructions Recorded Confirmed Type nebulizer accessories #1 ea 01/21/22 11/05/22 Rx nebulizer and compressor #1 ea 01/21/22 11/05/22 Rx CPAP Machine #1 ea 05/18/22 08/04/22 Rx CPAP Supplies #1 ea 05/18/22 08/04/22 Rx levalbuterol HCl 1.25 mg/3 mL 1.25 mg NEB Q4H PRN asthma/copd 08/04/22 05/18/25 History solution for nebulization arformoterol 15 mcg/2 mL solution 2 ml inhalation UD PRN asthma/copd 11/05/22 05/18/25 History for nebulization (Brovana) fluticasone 250 mcg-salmeterol 50 1 inh inhalation UD asthma/copd 11/05/22 05/18/25 History mcg/dose blistr powdr for inhalation (Advair Diskus) furosemide 20 mg tablet (Lasix) 40 mg PO UD PRN Edema 11/05/22 05/18/25 History blood-glucose sensor (FreeStyle #2 ea 01/06/23 Rx Ling 3 Sensor device) sildenafil (pulm.hypertension) 20 10 mg PO TID 03/09/23 11/10/24 History mg tablet (Revatio) Tresiba FlexTouch U-100 100 20 unit (0.2 mL) subcut HS #30 mL 07/11/23 11/10/24 Rx unit/mL (3 mL) subcutaneous pen (insulin degludec) insulin aspart 10 unit subcut TIDM #30 mL 07/11/23 05/18/25 Rx (niacinamide)(U-100) 100 unit/mL(3 mL) subcutaneous pen (Fiasp FlexTouch U-100 Insulin) escitalopram oxalate 10 mg tablet 10 mg PO QAM #30 tabs 10/23/24 05/18/25 Rx metoprolol succinate 25 mg 25 mg PO BID #60 tabs 10/23/24 05/18/25 Rx tablet,extended release 24 hr montelukast 10 mg tablet 10 mg PO HS #30 tabs 10/23/24 11/10/24 Rx spironolactone 25 mg tablet 12.5 mg (1/2 x 25 mg) PO DAILY #15 10/23/24 05/18/25 Rx tabs umeclidinium 62.5 mcg/actuation 1 inh inhalation DAILY #30 ea 10/23/24 05/18/25 Rx blister powder for inhalation (Incruse Ellipta) apixaban 5 mg tablet (Eliquis) 5 mg PO BID #60 tabs 11/17/24 05/18/25 Rx alendronate 70 mg tablet 70 mg PO WK 05/18/25 05/18/25 History bupropion HCl 150 mg 24 hr tablet, 150 mg PO DAILY 05/18/25 05/18/25 History extended release prednisolone acetate 1 % eye 1 drp QID 05/18/25 05/18/25 History drops,suspension Past Med/Surg History Problem List (Updated 05/19/25 @ 03:33 by Jayro Cruz MD) Sepsis Pneumoperitoneum (Acute) Diverticulitis of colon with perforation (Acute) Diverticulitis Acute pain of left lower extremity Acute pulmonary embolism without acute cor pulmonale Acute deep vein thrombosis of left lower extremity DVT (deep venous thrombosis) (Acute) Pulmonary embolism (Acute) Restrictive lung disease Combined pulmonary fibrosis and emphysema (CPFE) ILD (interstitial lung disease) Grief reaction Elevated troponin Atypical chest pain Acute exacerbation of chronic obstructive pulmonary disease (Acute) Encounter for pre-operative examination GERD (gastroesophageal reflux disease) Asthma Pulmonary hypertension HTN (hypertension) Obstructive sleep apnea Dysphagia Chronic respiratory failure with hypoxia Vitamin D deficiency Class 3 obesity Poorly controlled type 2 diabetes mellitus Proliferative diabetic retinopathy associated with type 2 diabetes mellitus Anxiety and depression Dyslipidemia Medical History Sleep apnea inconsistent use/toleration issues. Nausea and vomiting after administration of anesthetic agent Neuropathy legs/stimular for right side/doesn't work battery is . Diabetic retinopathy injections for / most recent 3 wks ago/upcoming Mar 18 2023. Chronic cough no change in baseline. Oxygen deficiency o2 2-3L prn. Last need of oxygen September 2022. baseline oxygen sat 88 %, recently been in the 90s. COPD (chronic obstructive pulmonary disease) denies recent flares. Asthma last use rescue inhler 1 wk or so ago. Denies recent flares. HTN (hypertension) Type 2 diabetes mellitus History of fracture of leg Right femoral condyle fracture 2021/no sx intervention as of current/knee replacement was advised. B12 deficiency hx History of COVID-19 Pneumonia with ARDS in 2020, 3 months hospitalization, shorter hospitalization in 2022. Surgical History History of cataract surgery right and left. History of bilateral breast reduction surgery History of surgery stimulator placement. History of x2 History of back surgery History of hysterectomy History of colonoscopy Family History Father Stroke Heart disease Cancer skin Mother Breast cancer Grandmother (Paternal) Breast cancer Social History Smoking Status: Former smoker Tobacco Type: Cigarettes Second Hand Exposure: No; Do You Dip or Chew Tobacco: No; Tobacco Cessation Education Requested by Patient: No Hx Alcohol Use: No Hx Substance Use: No Preferred Language: Tajik Communication Ability: [facility] Environmental Affairs Required: No Beliefs That Will Affect Care: None Current Living Situation: Spouse Current Living Situation Comment: daughter (handicap) Other Information That Helps Us Care for You: No Feels Safe at Home: Yes Safety Concerns: Feels Safe At This Time Assistive Devices: Cane, Oxygen - Continuous and Walker Review of Systems Review of Systems: As per HPI, all other systems reviewed and negative Physical Exam Physical Exam: GENERAL: Morbidly obese, ill-appearing, no respiratory distress SKIN: Normal color, warm HEENT: [place] palpebral conjunctivae, no ptosis, dry buccal mucosa, nasal cannula in place NECK : Supple, short neck, no tenderness CHEST : Decreased breath sounds, no tenderness HEART : RRR, no obvious murmurs ABDOMEN: Some distention, hypogastric tenderness EXTREMITIES : No LE swelling/tenderness, palpable pulses, no other conspicuous deformities noted NEUROLOGIC : Coherent, no facial asymmetry, no other gross focality Results & Data Results & Data Vital Signs (Past 12 Hours) Vital Signs Temp Pulse Resp BP Pulse Ox O2 Del Method O2 Flow Rate 05/18/25 21:23 92 H 05/18/25 20:42 93 H 18 118/90 98 Nasal Cannula 2 05/18/25 20:12 96 H 21 100/76 96 Nasal Cannula 2 05/18/25 20:03 98 H 19 116/68 97 Nasal Cannula 2 05/18/25 19:00 98 H 23 135/79 97 Nasal Cannula 2 05/18/25 18:42 97 H 24 122/96 96 Nasal Cannula 2 05/18/25 18:30 100 H 24 122/96 96 Nasal Cannula 2 05/18/25 17:28 95 H 05/18/25 17:27 95 H 23 143/72 H 96 Nasal Cannula 2 05/18/25 17:24 36.9 C 94 H 21 143/72 H 92 Room Air Laboratory Results Laboratory Results WBC 18.73 K/ul (4.8-10.8) H 05/18/25 18:12 RBC 4.82 M/uL (4.20-5.40) 05/18/25 18:12 Hgb 15.0 g/dL (12.0-16.0) 05/18/25 18:12 Hct 43.3 % (37.0-47.0) 05/18/25 18:12 MCV 89.8 fL (80.0-100.0) 05/18/25 18:12 MCH 31.1 pg (25.0-34.0) 05/18/25 18:12 MCHC 34.6 g/dL (32.0-36.0) 05/18/25 18:12 RDW Std Deviation 48.3 fL (36.4-46.3) H 05/18/25 18:12 RDW Coeff of Ralf 16.1 % (11.5-14.5) H 05/18/25 18:12 Plt Count 347 K/uL (130-400) 05/18/25 18:12 MPV 10.8 fL (9.4-12.4) 05/18/25 18:12 Immature Gran % (Auto) 0.4 % 05/18/25 18:12 Neut % (Auto) 88.2 % 05/18/25 18:12 Lymph % (Auto) 5.2 % 05/18/25 18:12 [place] % (Auto) 5.7 % 05/18/25 18:12 Eos % (Auto) 0.0 % 05/18/25 18:12 Baso % (Auto) 0.5 % 05/18/25 18:12 Neut # (Auto) 16.51 K/uL (1.40-6.50) H 05/18/25 18:12 Lymph # (Auto) 0.98 K/uL (1.20-3.40) L 05/18/25 18:12 [place] # (Auto) 1.07 K/uL (0.11-0.59) H 05/18/25 18:12 Eos # (Auto) 0.00 K/uL (0.00-0.50) 05/18/25 18:12 Baso # (Auto) 0.09 K/uL (0.00-0.20) 05/18/25 18:12 Immature Gran # (Auto) 0.08 K/uL (0.01-0.20) 05/18/25 18:12 PT 12.8 Seconds (9.0-12.0) H 05/18/25 18:12 INR 1.2 (0.9-1.1) H 05/18/25 18:12 APTT 25 Seconds (21-31) 05/18/25 18:12 PTT Ratio 0.9 05/18/25 18:12 Sodium 130 mmol/L (136-145) L 05/18/25 18:12 Potassium 4.0 mmol/L (3.5-5.1) 05/18/25 18:12 Chloride 94 mmol/L (98-107) L 05/18/25 18:12 Carbon Dioxide 26 mmol/L (21-32) 05/18/25 18:12 Anion Gap 10 (3-11) 05/18/25 18:12 BUN 23 mg/dl (6-23) 05/18/25 18:12 Creatinine 0.88 mg/dl (0.6-1.2) 05/18/25 18:12 Est Cr Clr Drug Dosing 64.5 ml/min 05/18/25 18:12 eGFR 71.09 05/18/25 18:12 BUN/Creatinine Ratio 26.1 (10-20) H 05/18/25 18:12 Glucose 269 mg/dl (70-99(Fasting)) H 05/18/25 18:12 Lactate 2.0 mmol/L (0.4-2.0) 05/18/25 18:12 Calcium 8.4 mg/dl (8.6-10.3) L 05/18/25 18:12 Total Bilirubin 3.1 mg/dl (0.2-1.0) H 05/18/25 18:12 AST 17 U/L (13-39) 05/18/25 18:12 ALT 11 U/L (7-52) 05/18/25 18:12 Alkaline Phosphatase 86 U/L (34-104) 05/18/25 18:12 Troponin I High Sens 10.9 pg/ml (0-14) 05/18/25 18:12 Total Protein 6.7 gm/dl (6.0-8.3) 05/18/25 18:12 Albumin 3.4 gm/dl (3.4-5.0) 05/18/25 18:12 Globulin 3.3 gm/dl (2.5-4.0) 05/18/25 18:12 Albumin/Globulin Ratio 1.0 (0.9-2) 05/18/25 18:12 Lipase < 3 U/L (11-82) L 05/18/25 18:12 Impressions Abdomen/Pelvis CT 05/18/25 17:30 CR Exam(s): CT ABDOMEN + PELVIS With Contrast IV Amt: 90 ml optiray 320 EXAM: CT Abdomen and Pelvis With Intravenous Contrast CLINICAL HISTORY: left sided abd pain. TECHNIQUE: Axial computed tomography images of the abdomen and pelvis with intravenous contrast. CTDI is 27 mGy and DLP is 1408 mGy-cm. Automated exposure control was utilized for the study. A dose lowering technique was utilized adhering to the principles of ALARA. CONTRAST: Patient received 90 ml optiray 320 of IV contrast COMPARISON: Ultrasound gallbladder 10/06/2010 FINDINGS: Limitations: There is respiratory artifact, which degrades image quality on multiple image slices. Lung bases: No significant abnormality. No mass. No consolidation. ABDOMEN: Liver: No significant abnormality. No mass. Gallbladder and bile ducts: No significant abnormality. No calcified stones. No ductal dilation. Pancreas: No significant abnormality. No mass. No ductal dilation. Spleen: No significant abnormality. No splenomegaly. Adrenals: No significant abnormality. No mass. Kidneys and ureters: No significant abnormality. No solid mass. No hydronephrosis. Stomach and bowel: No evidence for focal high-grade bowel obstruction. There is extensive diverticulosis throughout the proximal sigmoid colon. There is mucosal thickening with pericolonic fat stranding and regional pneumoperitoneum which appears to extend from the bowel lumen laterally (series 300; images 39-40). There is a localized fluid and gas collection posterolateral to the sigmoid colon, measuring 1.6 x 7.3 x 7.3 cm. PELVIS: Appendix: The appendix is not clearly delineated and may be surgically absent. Bladder: No significant abnormality. No mass. Reproductive: Status post hysterectomy. ABDOMEN and PELVIS: Intraperitoneal space: There is also pneumoperitoneum surrounding the sigmoid colon and along the anterior aspect of the abdomen. Bones/joints: No acute fracture. No dislocation. Soft tissues: No significant abnormality. Vasculature: No significant abnormality. No abdominal aortic aneurysm. Lymph nodes: No significant abnormality. No enlarged lymph nodes. IMPRESSION: No evidence for focal high-grade bowel obstruction. There is extensive diverticulosis throughout the proximal sigmoid colon. There is mucosal thickening with pericolonic fat stranding and regional pneumoperitoneum which appears to extend from the bowel lumen laterally (series 300; images 39-40). There is a localized fluid and gas collection posterolateral to the sigmoid colon, measuring 1.6 x 7.3 x 7.3 cm. There is also pneumoperitoneum surrounding the sigmoid colon and along the anterior aspect of the abdomen. Findings are consistent with perforated sigmoid diverticulitis. Communications: Call Doctor Pneumoperitoneum, new or unexpected Electronically signed by: Keith Segura MD 05/18/25 21:51 PM Chest X-Ray 05/18/25 18:36 COMPARISON: 11/10/2024 FINDINGS: HEART: Normal in size. LUNGS: Chronic increased interstitial lung markings. Pulmonary scarring. Superimposed left basilar infiltrate cannot be excluded. No pneumothorax. MEEDIASTINUM: Mild mediastinal prominence. BONES: Intact. OTHER: Mediport catheter remains in place. Elevated right hemidiaphragm IMPRESSION: Chronic pulmonary scarring. Superimposed left basilar infiltrate cannot be excluded. Electronically signed by Yamil Cox 05-18-2025 7:33 PM Diagnostic Findings EKG as per my interpretation :
[2025-05-18] MEDS: SODIUM CHLORIDE 0.9% 500 ML IV ONE (22:17)
--- NOTE | 2025-05-18 22:21 | Surgery Consultation ---
<Statement entered by Keyanna Velasco DO - 05/18/25 23:26> I have seen and examined this patient with the surgical PA and I agree with this plan. Date of Consultation May 18, 2025 Assessment & Plan (1) Diverticulitis: I discussed with the treating clinician in the emergency department the patient is going to be admitted on the hospitalist service. From a surgical perspective we recommend the following: Antibiotics in form of Zosyn have been initiated should continue Analgesics to be provided Antiemetics to be provided The patient should be resuscitated/hydrated with intravenous fluids Serial labs to be followed Patient should have strict n.p.o. status implemented. The patient was seen by myself and Dr. Soto I would like to try conservative measures as outlined above as any emergent operation would likely necessitate a Jill procedure/colostomy creation At the time of burn. Patient was nontoxic-appearingthat she was normotensive without feverAnd she only had a slight tachycardia with heart rate in the low 90s. We did discuss with the patient that if she clinically deteriorates that may change our plan and the patient may require an emergent surgery but the need for this is yet to be determined The patient does take Eliquis for history of DVT/PE and would be preferable to hold this medication until is ascertained whether or not the patient will require any surgical intervention Will continue to follow along closely with additional recommendations to follow based on her clinical course as unfolds History of Present Illness Reason for Consultation: Abdominal pain History of Present Illness Is a 69-year-old female who presented to the emergency department secondary to abdominal pain. Patient notes that she developed some lower abdominal pain on 05/09/2025. She has had associated nausea and vomiting. She says that she did feel feverish with occasional chills. She reports that she has had prior abdominal surgeries in the form of a hysterectomy as well as a C-sections. She notes that she did have diverticulitis several years ago that was treated nonoperatively. She also notes that she has had colonoscopies in the past. She believes her most recent colonoscopy was approximately 5 years ago to the best of her knowledge they only removed some polyps and no other concerning pathology was noted. Patient also reports that she has significant interstitial lung disease and COPD which is largely oxygen dependent (she does note that if she is at rest she sometimes does not need to use oxygen). She also reports that she had a hospital admission in October of this year secondary to DVT and pulmonary emboli for which she takes Eliquis. She does note that her most recent dose of Eliquis was the morning of 05/17/2025. Since arrival to hospital patient has had labs and imaging which have been reviewed. Chest x-ray showed chronic pulmonary scarring. The interpreting radiologist could not exclude a left basilar infiltrate. She also had a CT scan of the abdomen pelvis which showed the patient did not have any evidence of focal high-grade bowel obstruction. Patient was noted to have extensive sigmoid diverticulosis. Mucosal thickening and pericolonic fat stranding along with regional pneumoperitoneum was noted which appeared to extend from the bowel lumen laterally and a localized fluid and gas collection posterior lateral to the sigmoid colon measuring 1.6 x 7.3 x 7.3 cm. Interpreted radiologist felt that this represented perforated sigmoid diverticulitis. Labs including CBC were white blood cell count was elevated 18.7. Hemoglobin and hematocrit as well as a platelet count were normal. Chemistry profile showed sodium was 130 with normal potassium. BUN and creatinine were both normal. Lactic acid level was not elevated at 2.0. Coagulation studies showed an INR 1.2. At the time of my interview the patient was noted to be hemodynamically stable a nd was in no overt distress. Allergies Allergy/AdvReac Type Severity Reaction Status Date / Time No Known Allergies Allergy Unknown Verified 03/09/23 09:54 Home Medications Medication Instructions Recorded Confirmed Type nebulizer accessories #1 ea 01/21/22 11/05/22 Rx nebulizer and compressor #1 ea 01/21/22 11/05/22 Rx CPAP Machine #1 ea 05/18/22 08/04/22 Rx CPAP Supplies #1 ea 05/18/22 08/04/22 Rx levalbuterol HCl 1.25 mg/3 mL 1.25 mg NEB Q4H PRN asthma/copd 08/04/22 11/10/24 History solution for nebulization arformoterol 15 mcg/2 mL solution 2 ml inhalation UD PRN asthma/copd 11/05/22 11/10/24 History for nebulization (Brovana) fluticasone 250 mcg-salmeterol 50 1 inh inhalation UD PRN asthma/copd 11/05/22 11/10/24 History mcg/dose blistr powdr for inhalation (Advair Diskus) furosemide 20 mg tablet (Lasix) 40 mg PO UD PRN Edema 11/05/22 11/10/24 History blood-glucose sensor (FreeStyle #2 ea 01/06/23 Rx Ling 3 Sensor device) albuterol sulfate 90 mcg/actuation 2 inh inhalation QID PRN 03/09/23 11/10/24 History aerosol inhaler asthma/copd sildenafil (pulm.hypertension) 20 10 mg PO TID 03/09/23 11/10/24 History mg tablet (Revatio) Tresiba FlexTouch U-100 100 20 unit (0.2 mL) subcut HS #30 mL 07/11/23 11/10/24 Rx unit/mL (3 mL) subcutaneous pen (insulin degludec) insulin aspart 10 unit subcut TIDM #30 mL 07/11/23 11/10/24 Rx (niacinamide)(U-100) 100 unit/mL(3 mL) subcutaneous pen (Fiasp FlexTouch U-100 Insulin) buspirone 5 mg tablet 5 mg PO TID #90 tabs 10/23/24 11/10/24 Rx escitalopram oxalate 10 mg tablet 10 mg PO QAM #30 tabs 10/23/24 11/10/24 Rx metoprolol succinate 25 mg 25 mg PO BID #60 tabs 10/23/24 11/10/24 Rx tablet,extended release 24 hr montelukast 10 mg tablet 10 mg PO HS #30 tabs 10/23/24 11/10/24 Rx spironolactone 25 mg tablet 12.5 mg (1/2 x 25 mg) PO DAILY #15 10/23/24 11/10/24 Rx tabs umeclidinium 62.5 mcg/actuation 1 inh inhalation DAILY #30 ea 10/23/24 11/10/24 Rx blister powder for inhalation (Incruse Ellipta) apixaban 5 mg tablet (Eliquis) 5 mg PO BID #60 tabs 11/17/24 Rx Patient History Medical History Sleep apnea inconsistent use/toleration issues. Nausea and vomiting after administration of anesthetic agent Neuropathy legs/stimular for right side/doesn't work battery is . Diabetic retinopathy injections for / most recent 3 wks ago/upcoming Mar 18 2023. Chronic cough no change in baseline. Oxygen deficiency o2 2-3L prn. Last need of oxygen September 2022. baseline oxygen sat 88 %, recently been in the s. COPD (chronic obstructive pulmonary disease) denies recent flares. Asthma last use rescue inhler 1 wk or so ago. Denies recent flares. HTN (hypertension) Type 2 diabetes mellitus History of fracture of leg Right femoral condyle fracture 2021/no sx intervention as of current/knee replacement was advised. B12 deficiency hx History of COVID-19 Pneumonia with ARDS in 2020, 3 months hospitalization, shorter hospitalization in 2022. Surgical History History of cataract surgery right and left. History of bilateral breast reduction surgery History of surgery stimulator placement. History of x2 History of back surgery History of hysterectomy History of colonoscopy Family History Father Stroke Heart disease Cancer skin Mother Breast cancer Grandmother (Paternal) Breast cancer Social History Smoking Status: Former smoker Tobacco Type: Cigarettes Second Hand Exposure: No; Do You Dip or Chew Tobacco: No; Hx Alcohol Use: Yes Alcohol type: beer Hx Substance Use: No Preferred Language: Frisian Communication Ability: Effective Commercial Kitchen Service Technician Required: No Beliefs That Will Affect Care: None Current Living Situation: Spouse Current Living Situation Comment: daughter (handicap) Feels Safe at Home: Yes Assistive Devices: Cane, Oxygen - Continuous and Walker Review of Systems Review of Systems: All systems reviewed & are unremarkable except as noted in HPI & below Physical Exam Constitutional: WD/WN, vitals as above Eyes: no conjunctival abnormality ENMT: Ears: no hearing impairment and no external ear abnormality Neck: trachea midline Respiratory: normal respiratory effort; no respiratory distress and no labored breathing Cardiovascular: Rate/Rhythm: regular rate and regular rhythm Gastrointestinal (Abdomen): Patient's abdomen is soft without rigidity. There is some voluntary guarding but there is no rebound tenderness or other signs of peritonitis. Patient did have some generalized pain with palpation in the lower abdomen. Musculoskeletal: No calf tenderness Skin: no rashes Neurologic: moves all extremities Psychiatric: A+Ox3, euthymic affect Results & Data Vital Signs (Past 12 Hours) Vital Signs Temp Pulse Resp BP Pulse Ox O2 Del Method O2 Flow Rate 05/18/25 21:23 92 H 05/18/25 20:42 93 H 18 118/90 98 Nasal Cannula 2 05/18/25 20:12 96 H 21 100/76 96 Nasal Cannula 2 05/18/25 20:03 98 H 19 116/68 97 Nasal Cannula 2 05/18/25 19:00 98 H 23 135/79 97 Nasal Cannula 2 05/18/25 18:42 97 H 24 122/96 96 Nasal Cannula 2 05/18/25 18:30 100 H 24 122/96 96 Nasal Cannula 2 05/18/25 17:28 95 H 05/18/25 17:27 95 H 23 143/72 H 96 Nasal Cannula 2 05/18/25 17:24 36.9 C 94 H 21 143/72 H 92 Room Air PG Care Time/CCT Total # of Minutes Spent Total Time Spent with Patient: Total time spent is greater than 50% in coordination of care (as documented) at patient's floor/unit and/or counseling patient: Coding Level of Care Code 23198 INT INP/OBS CARE 375MIN Diagnoses Diverticulitis K57.92
[2025-05-18] MEDS: PIPERACILLIN/TAZOBACTAM 4.5 GM/100 ML BAG IV ONE (22:41)
[2025-05-18 23:07] LABS: Magnesium 1.7 mg/dl (1.7-2.4); Sodium 132.0 mmol/L (136-145)
[2025-05-18 23:23] LABS: Thyroid Stimulating Hormone 2.162 uIu/ml (0.300-4.500)
--- NOTE | 2025-05-18 23:33 | Emergency Department Note ---
ED Visit Note I had a meaningful discussion with the PA regarding patient. Though I did not see the patient face to face, I personally approved and/or made the documented management plan and acknowledge risk and complications. Okay .
[2025-05-18] MEDS ORDERED: CARBOHYDRATES FOR HYPOGLYCEMIA PO PRN (23:47)
[2025-05-18] MEDS ORDERED: GLUCAGON FOR INJ 1 MG VIAL SQ PRN (23:47)
[2025-05-18] MEDS ORDERED: GLUCOSE 40% GEL 15 GM TUBE PO PRN (23:47)
[2025-05-18] MEDS ORDERED: DEXTROSE 50% 50 ML SYRINGE IV PRN (23:47)
[2025-05-18] MEDS ORDERED: GLUCOSE 10 TAB/TUBE PO PRN (23:47)
[2025-05-18 23:48] LABS: Appearance Urine Clear (Clear); Bacteria Urine Automated 3+ (None Seen); Cast Urine Automated 0-2 /lpf (0-2); Glucose Urine UA 1+ (Negative); WBC Urine Automated 0-5 /hpf (0-5)
[2025-05-19] MEDS ORDERED: LEVALBUTEROL 1.25 MG/3 ML NEB NEB PRN (00:01)
[2025-05-19] MEDS ORDERED: IPRATROPIUM BROMIDE NEB SOLN 0.02% 0.5MG/2.5ML VIAL INH PRN (00:01)
[2025-05-19] MEDS: KETOROLAC TROMETHAMINE 15 MG/ML VIAL IV ONE (00:02)
[2025-05-19] MEDS ORDERED: LORazepam Inj 0.5 MG in SYRINGE 0.25 ML IV PRN (00:05)
[2025-05-19] MEDS ORDERED: PROMETHAZINE 6.25 MG/50.25 ML BAG IV PRN (00:05)
[2025-05-19] MEDS: LANTUS PER UNIT CHARGE SQ SCH (00:14)
[2025-05-19] MEDS: INSULIN ASPART PER UNIT CHARGE SC SCH ×2 (00:15→05:59)
[2025-05-19] MEDS: MoRPHine SULFATE 4 MG/ML 1 ML CARP\\VIAL IV PRN (00:19)
[2025-05-19] MEDS: METOPROLOL TARTRATE 1 MG/ML VIAL IV SCH (00:19)
[2025-05-19] MEDS: SODIUM CHLORIDE 0.9% 1,000 ML IV ONE (00:43)
[2025-05-19] MEDS: FLUTICASONE/VILANTEROL 200/25MCG 14 PUFFS/INHALER INH SCH (01:13)
--- NOTE | 2025-05-19 01:18 | CT Scan Report ---
EXAM: CT head/brain wo con CLINICAL HISTORY: Headache TECHNIQUE: Axial non-contrast CT scan of the brain was performed from the skull base to the high parietal region in axial, sagittal and coronal reconstructions. One of the following dose reduction techniques were utilized for this exam: Automated exposure control, adjustment of the mA and/or kV according to patient size, use of iterative reconstruction. COMPARISON: 10/18/2024, CT Head FINDINGS: Brain Parenchyma: Mild diffuse low-attenuation is identified in bilateral periventricular deep white matter, and few low-attenuation areas are identified in bilateral basal ganglia likely due to chronic microvascular ischemic changes Normal attenuation of the cerebellum, and brainstem. No evidence of acute infarct, hemorrhage, or mass effect. No abnormal areas of hyperattenuation. Ventricular System: Mildly prominent ventricular system seen, related to age No evidence of hydrocephalus. Subarachnoid Spaces: Mild to moderate widening of sulci are identified No evidence of subarachnoid hemorrhage or extra-axial fluid collections. Cerebellum and Brainstem: No masses, lesions, or areas of abnormal density. Orbits: Normal appearance of the globes, optic nerves, and extraocular muscles. No evidence of orbital masses or abnormal density. Sinuses: Possibility of minimal mucosal thickening in both ethmoid sinuses, image: 27/128 Rest of the paranasal sinuses appear unremarkable Mastoid Air Cells: Clear mastoid air cells. No evidence of mastoiditis. Skull: Normal skull morphology. IMPRESSION: 1. No evidence of intracranial hemorrhage, gross territorial infarction or mass-effect 2. Redemonstration of age appropriate volume loss in brain parenchyma and chronic microvascular ischemic changes with no gross interval change 3. No evidence of hydrocephalus 4. No tonsillar herniation seen. 5. Possibility of minimal mucosal thickening in both ethmoid sinuses, in current examination Electronically signed by Edgar Kilgore 05-19-2025 01:18 AM
[2025-05-19] MEDS: LORazepam Inj 0.5 MG in SYRINGE 0.25 ML IV STA (01:48)
[2025-05-19 02:19] LABS: Chlamydia pneumoniae PCR Not Detected (NotDetected); Coronavirus 229E PCR Not Detected (NotDetected); Coronavirus CoV-2 (COVID19)PCR Not Detected (NotDetected); Coronavirus HKU1 PCR Not Detected (NotDetected); Coronavirus NL63 PCR Not Detected (NotDetected); Coronavirus OC43PCR Not Detected (NotDetected); Human Metapneumovirus PCR Not Detected (NotDetected); Parainfluenza Virus 1 PCR Not Detected (NotDetected); Parainfluenza Virus 2 PCR Not Detected (NotDetected); Parainfluenza Virus 3 PCR Not Detected (NotDetected); Parainfluenza Virus 4 PCR Not Detected (NotDetected); Respiratory Syncytial VirusPCR Not Detected (NotDetected); Rhinovirus/Enterovirus PCR Not Detected (NotDetected)
[2025-05-19] MEDS: HEPARIN 25000 UNIT/500 ML D5W 25,000 UNITS/500 ML BAG IV SCH (03:11)
[2025-05-19] MEDS: Heparin IV Adult Wt-Based Low-Dose *NO* INITIAL Bolus Protocol IV STA (03:16)
[2025-05-19] MEDS: PIPERACILLIN/TAZOBACTAM 4.5 GM/100 ML BAG IV SCH (03:16)
[2025-05-19] MEDS: ACETAMINOPHEN 1,000 MG/100 ML VIAL IV PRN (03:20)
[2025-05-19] MEDS ORDERED: Nursing to Pharmacy Communication SCH (06:00)
[2025-05-19 06:49] LABS: Partial Thromboplastin Time 30 Seconds (21-31)
[2025-05-19 06:50] LABS: Anion Gap 9.0 (3-11); Blood Urea Nitrogen 26.0 mg/dl (6-23); Calcium 7.5 mg/dl (8.6-10.3); Carbon Dioxide 25.0 mmol/L (21-32); Chloride 101.0 mmol/L (98-107); Creatinine Clr Calc Pharmacy 49.2 ml/min; Glucose 146.0 mg/dl (70-99(Fasting)); Hematocrit (blood only) 37.8 % (37.0-47.0); Hemoglobin 12.8 g/dL (12.0-16.0); Mean Corpuscular Hemoglobin 29.8 pg (25.0-34.0); Mean Corpuscular Volume 88.1 fL (80.0-100.0); Platelet Count 302 K/uL (130-400); Potassium 3.3 mmol/L (3.5-5.1); RDW Standard Deviation 48.9 fL (36.4-46.3); Red Blood Count 4.29 M/uL (4.20-5.40); Sodium 135.0 mmol/L (136-145)
[2025-05-19 06:56] LABS: Immature Granulocytes # (auto) 0.09 K/uL (0.01-0.20); Immature Granulocytes % (auto) 0.7 %; Toxic Vacuolation 1+; White Blood Count 13.09 K/ul (4.8-10.8)
[2025-05-19] MEDS: POTASSIUM CHLORIDE / WTR 10 MEQ/100 ML PLCT IV SCH (07:19)
--- NOTE | 2025-05-19 08:27 | Hospitalist Progress Note ---
<Statement entered by Robb Damon, DO - 05/19/25 16:05> Diverticulitis with perforation. surgery following, no surgical plans as of yet. Sepsis likely from gut translocation. Continue empiric zosyn. Patient seen and examined twice. Received call this afternoon that MAP was 55 after IVF bolus. She is comfortable but tearful. D/w ICU team and surgeon. Transferring to ICU for further care. BP improved upon transfer to ICU without needing pressors I spent a total of 65 minutes coordinating, documenting, and providing care for this patient excluding time spent in the performance of separately billed services. This included personally reviewing all current laboratories and imaging studies, medical reconciliation, outpatient chart review and discussion with specialists Date of Service May 19, 2025 Assessment & Plan (1) Sepsis: Plan: Patient is a 69F with a PMH significant for Type 2 diabetes mellitus, hyperlipidemia, asthmaCOPD overlap, PARRIS, hypertension, GERD, pulmonary hypertension who presented to the ED with complaint of severe left sided abdominal pain, that started on Tuesday. Patient was travelling home from a holiday trip in [place] and started with left sided abdominal pain that made her dizzy with feelings of "passing out", dizziness, gassy feeling, and felt symptoms related to constipation. The next day, she had a fever and "perfuse" vomiting that brought her here. Sepsis 2/2 perforated sigmoid diverticulitis Met sepsis criteria- leukocytosis, tachycardia, hypoxia, CTAP showing regional pneumoperitoneum appears to extend from the bowel lumen laterally; Findings are consistent with perforated sigmoid diverticulitis. General Surgery consult with plan for medical management via strict n.p.o. status and antibiotic administration; no emergent surgery d/t possible need for colostomy at this time; will surgically intervene if clinical deterioration Continue Zosyn antibiotics IV fluids replacement; hypotensive today; 500 ml NSS bolus given; BP 72/46 following bolus; neuro intact hyperlipidemia on statin hx PE with chronic anticoagulation Hold Eliquis for possible surgery this admission for perforate diverticulitis low-dose IV heparin gtts for now COPD/ILD/asthma, patient with dry cough symptoms, no wheezing on exam PARRIS nonadherent to CPAP at home monitor O2 sats for now, on oxygen 2-3 LPM when sleeping-> continue Type II DM Hold home oral medications, Suboptimal control as of recent hemoglobin A1c of 8.21 March 2025 Basal bolus insulin adjusted for n.p.o. status, ISS BG goal 110-140 DVT Ppx: Heparin; Hold Eliquis for poss surgical intervention Code status: Full PCP: Dr. Pinto Dispo: medical management ongoing with undetermined plan for discharge at this time Patient seen in collaboration with Dr. Damon. Please see addendum.I spent a total of 45 minutes coordinating, documenting and providing care for this patient excluding time spent in the performance of separately billed services or time spent by another provider/QHP. Admission and Anticipated Discharge Date Admission Date: May 18, 2025 Subjective Patient seen and examined at bedside. Patient reporting severe left sided abdominal pain. On 2 LPM oxygen with NAD. Had morphine 4 mg ~3 hours ago with minimal relief of pain. Very concerned about this hospitalization and fearful of having surgery. Discussed current plan for medical management and with surgery team to follow patient as well. Update: 1400 hypotensive following NSS bolus. ICU and Gen Surgery notified. Plan for transfer to unit for pressor support. General Surgery to evaluate at bedside. Heparin on hold per surgery request. Patient highly anxious and tearful on my exam. Reports losing 2 children around the holidays, and also had other family members pass in the past year. Emotional support provided. Denies headache, dizziness, lightheadedness, chest pain, shortness of breath. Review of Systems Review of Systems: All systems reviewed & are unremarkable except as noted in Subjective Physical Exam Physical Exam: VITALS: Reviewed. WEIGHT/BMI reviewed. GEN: Healthy appearing, well-developed, NAD. PSYCH: Good Judgment. AOx3. Normal memory, mood, and affect. HEENT -Head: NC/AT; -Eyes: PERRL, EOMI. No discharge or redn ess; -Ears: External ears are normal. -Nose: Normal nares. -Mouth and throat: MMM. Normal gums, muc parris, palate,. Good dentition. NECK: Supple, with no masses. CV: RRR, no m/r/g. lower leg, nonpitting edema LUNGS: diminished to bases with wheezes, nonproductive cough, supplemental oxygen 2 LPM ABD: Soft, distended, severe tenderness left sided, active bowel sounds, no masses or organomegaly. : N/A SKIN: Warm, well perfused. No skin rashes or abnormal lesions. MSK: No deformities, PETERSEN freely EXT: No clubbing, cyanosis, or edema. NEURO: CN II-XII grossly intact. No focal deficits. Results & Data Results & Data Vital Signs (Past 12 Hours) Vital Signs Temp Pulse Pulse Resp BP BP Pulse Ox 05/19/25 07:43 36.3 C L 89 20 94/62 L 100 05/19/25 07:35 05/19/25 06:07 100 H 97/63 L 05/19/25 03:59 36.6 C 93 H 20 96/56 L 95 05/19/25 00:48 85 111/68 05/18/25 23:45 100 H 05/18/25 23:45 05/18/25 23:45 36.6 C 85 22 95/59 L 93 05/18/25 22:42 96 H 18 143/74 H 97 05/18/25 22:30 91 H 23 143/74 H 98 05/18/25 22:00 91 H 19 171/77 H 98 05/18/25 21:42 89 22 173/86 H 98 05/18/25 21:23 92 H 05/18/25 20:42 93 H 18 118/90 98 O2 Del Method O2 Flow Rate 05/19/25 07:43 Nasal Cannula 2 05/19/25 07:35 Nasal Cannula 2 05/19/25 06:07 05/19/25 03:59 Nasal Cannula 2.0 05/19/25 00:48 05/18/25 23:45 05/18/25 23:45 Nasal Cannula 2 05/18/25 23:45 Nasal Cannula 2 05/18/25 22:42 Nasal Cannula 2 05/18/25 22:30 Nasal Cannula 2 05/18/25 22:00 Nasal Cannula 2 05/18/25 21:42 Nasal Cannula 2 05/18/25 21:23 05/18/25 20:42 Nasal Cannula 2 Laboratory Results Short CBC 05/18/25 05/19/25 Range/Units 18:12 05:42 WBC 18.73 H 13.09 H (4.8-10.8) K/ul Hgb 15.0 12.8 (12.0-16.0) g/dL Hct 43.3 37.8 (37.0-47.0) % Plt Count 347 302 (130-400) K/uL BMP 11/05/18/25 05/19/25 18:12 22:33 05:42 Sodium 130 L 132 L 135 L Potassium 4.0 3.3 L Chloride 94 L 101 Carbon Dioxide 26 25 BUN 23 26 H Creatinine 0.88 1.09 Glucose 269 H 146 H Calcium 8.4 L 7.5 L Liver Function 05/18/25 Range/Units 18:12 Total Bilirubin 3.1 H (0.2-1.0) mg/dl AST 17 (13-39) U/L ALT 11 (7-52) U/L Alkaline Phosphatase 86 (34-104) U/L Albumin 3.4 (3.4-5.0) gm/dl Urine 05/18/25 Range/Units 22:53 Urine Color Yellow Urine Appearance Clear (Clear) Urine pH 6.0 (4.5-7.5) Ur Specific [place] > 1.045 H (1.000-1.030) Urine Protein 2+ H (Negative) Urine Glucose (UA) 1+ H (Negative)
[2025-05-19] MEDS: prednisoLONE acetate 1% OP SUSP 5 ML BTL OPB SCH (08:35)
[2025-05-19] MEDS: UMECLIDINIUM BROMIDE 62.5MCG/BLISTER 7 PUFFS/INHALER INH SCH (08:37)
[2025-05-19] MEDS: HYDROmorphone INJ 0.5 MG/0.5 ML SYR ONE (09:05)
[2025-05-19 09:43] LABS: ANTI-Xa, UFH(UnfractionatedHep 0.63 IU/ml (0.3-0.7)
[2025-05-19] MEDS: ACETAMINOPHEN 1,000 MG/100 ML VIAL IV SCH (11:47)
[2025-05-19] MEDS: SODIUM CHLORIDE 0.9% 500 ML IV ONE (12:11)
[2025-05-19] MEDS: SODIUM CHLORIDE 0.9% 1,000 ML IV SCH (12:42)
--- NOTE | 2025-05-19 14:50 | Surgery Progress Note ---
Date of Service May 19, 2025 Assessment & Plan (1) Diverticulitis of colon with perforation: Plan Leukocytosis is improving. She has been afebrile and feels improvement in her abdominal discomfort. Continues with some intermittent tachycardia. Based on initial evaluation, plan was to continue with conservative management with NPO, IVF, IV abx. H/O blood clots and pt was started on a Heparin drip. Her las dose of Eliquis was the am of 05/18/25 After seeing the pt initially, I received a message that she was being transferred to the ICU due to hypotension with a BP down to 76 systolic I returned to the bedside, now in the ICU to reassess the patient. She is alert, not in any acute distress and remains fearful at the idea of needing surgery. She again admits that her abdominal pain is improving. She had not voided on the floor, a Coronel catheter was inserted and she has urine output Once settled in the ICU, a repeat BP is 104/62 HR 82 The pt had also reportedly had Dilaudid hours prior to the decreasing blood pressures on the floor Heparin has been placed on hold as of 0 in case emergent surgical intervention becomes necessary. We are monitoring closely Admission and Anticipated Discharge Date Admission Date: May 18, 2025 Subjective Pt seen and examined today. Denied N/V, admitted to slightly improved abdominal pain compared to admission although still with a good amount of abdominal pain. Physical Exam Constitutional: + obese; not ill appearing, not in distr ess and not diaphoretic Respiratory: normal respiratory effort; no respiratory distress, no labored breathing and does not use accessory muscles Cardiovascular: Rate/Rhythm: + tachycardic Gastrointestinal (Abdomen): soft Mild generalized TTP, more significantly TTP along the left abdomen Results & Data Vital Signs (Past 12 Hours) Vital Signs Temp Pulse Pulse Pulse Resp BP BP 05/19/25 13:59 97 H 16 72/46 L 05/19/25 13:08 98 H 16 88/58 L 05/19/25 11:40 36.7 C 87 18 89/54 L 05/19/25 09:00 05/19/25 07:43 36.3 C L 89 20 94/62 L 05/19/25 07:35 91 H 05/19/25 07:35 05/19/25 06:07 100 H 97/63 L 05/19/25 03:59 36.6 C 93 H 20 96/56 L Pulse Ox Pulse Ox O2 Del Method O2 Del Method O2 Flow Rate O2 Flow Rate 05/19/25 13:59 98 Nasal Cannula 2 05/19/25 13:08 98 Nasal Cannula 2 05/19/25 11:40 93 Room Air 05/19/25 09:00 94 Nasal Cannula 2 05/19/25 07:43 100 Nasal Cannula 2 05/19/25 07:35 05/19/25 07:35 Nasal Cannula 2 05/19/25 06:07 05/19/25 03:59 95 Nasal Cannula 2.0 PG Care Time/CCT Total # of Minutes Spent Total Time Spent with Patient: Total time spent is greater than 50% in coordination of care (as documented) at patient's floor/unit and/or counseling patient: Coding Level of Care Code 67005 SUB INP/OBS CARE MIN Diagnoses Diverticulitis of colon with perforation K57.20
[2025-05-19] MEDS: LACTATED RINGER'S 1,000 ML IV SCH (15:44)
--- NOTE | 2025-05-19 16:09 | Critical Care Consultation ---
Date of Consultation May 19, 2025 Assessment & Plan (1) Pneumoperitoneum: (2) Diverticulitis of colon with perforation: (3) Hypotension: Plan Impression: 69-year-old female with multiple medical comorbidities admitted with perforated diverticulum and peritonitis. She is on antibiotics with improving white count and improving lactate. She was transferred to the ICU due to low blood pressures which may have been precipitated by inadequate volume resuscitation with concomitant use of narcotics. Recommendations: 1. Neurologic: No current issues. Pain control per primary service. 2. Cardiovascular: Hypotension, continue volume resuscitation. Blood pressure currently normal. Holding antihypertensives. Echocardiogram during admission in September of this year showed grade 1 diastolic dysfunction with an EF of 60 to 65%. No evidence of pulmonary hypertension. Will check random cortisol. Could consider pressors as a temporary stabilizing measure however if the patient progresses to that point, would strongly recommend source control with surgery 3. Respiratory: Known history of COPD/ILD/asthma. Not bronchospastic currently. No indication for steroids. Continue supportive care. Can continue inhalers. Wean oxygen as tolerated. History of PE/DVT currently on heparin infusion. Agree with holding Eliquis. 4. GI: Perforated diverticulum. Conservative management. Should the patient's hemodynamic status or biomarkers worsen, low threshold for surgical evaluation for source control. N.p.o. for now. 5. Renal: No current issues other than some mild electrolyte abnormalities. Initiate ICU electrolyte replacement protocol. 6. ID: Peritonitis. Day #2 Zosyn. Continue antibiotics for now but would need source control should the patient's clinical condition worsen. Repeat imaging of the abdomen should infectious parameters worsen. Given her normal lactate, lack of tachycardia, and normotension, the patient does not meet criteria for sepsis at this point in time. 7. Heme-onc: 8. Endocrine: Glycemic control per protocol. The above recommendations and plan were discussed extensively with the patient as well as with the ICU bedside nurse. Will continue to follow closely. Patient has significant possibility of clinical decline resulting in loss of organ function and/or . Total of 40 minutes of critical care time was spent in evaluation management and coordination of care for this patient. History of Present Illness Attending Physician: Robb Damon DO History of Present Illness Asked by hospitalist to assist in evaluation management of this patient with perforated diverticulum and peritonitis transferred to the ICU for low blood pressure. History is obtained from discussion with the patient as well as review of the electronic medical record. The patient is a 69-year-old female with a history of prior PE/COPD/ILD followed by [facility] and known diverticular disease who presented to the emergency room with left-sided abdominal pain. She was seen in the emergency room where a CT scan was performed which demonstrated pericolic fat stranding and regional pneumoperitoneum with a localized fluid and gas collection posterior to the sigmoid colon consistent with probable contained rupture. She was seen in consultation by general surgery. She received a 500 cc bolus in the emergency room and Zosyn. Lactate was normal. General surgery consultation was obtained. They recommended nonsurgical management in hopes that this walled off rupture might avoid surgery. The patient states that her abdominal pain was improving however blood pressures were noted to be soft on the floor. Repeat lactate was checked which is actually decreasing and the white blood cell count was decreasing. Hospitalist transferred her to the ICU for additional management and potential pressor agents although with a small fluid bolus the patient is now normotensive and not tachycardic. She was reevaluated by general surgery who again recommended conservative management. Allergies Allergy/AdvReac Type Severity Reaction Status Date / Time No Known Allergies Allergy Unknown Verified 03/09/23 09:54 Home Medications Medication Instructions Recorded Confirmed Type nebulizer accessories #1 ea 01/21/22 11/05/22 Rx nebulizer and compressor #1 ea 01/21/22 11/05/22 Rx CPAP Machine #1 ea 05/18/22 08/04/22 Rx CPAP Supplies #1 ea 05/18/22 08/04/22 Rx levalbuterol HCl 1.25 mg/3 mL 1.25 mg NEB Q4H PRN asthma/copd 08/04/22 05/18/25 History solution for nebulization arformoterol 15 mcg/2 mL solution 2 ml inhalation UD PRN asthma/copd 11/05/22 05/18/25 History for nebulization (Brovana) fluticasone 250 mcg-salmeterol 50 1 inh inhalation UD asthma/copd 11/05/22 05/18/25 History mcg/dose blistr powdr for inhalation (Advair Diskus) furosemide 20 mg tablet (Lasix) 40 mg PO UD PRN Edema 11/05/22 05/18/25 History blood-glucose sensor (FreeStyle #2 ea 01/06/23 Rx Ling 3 Sensor device) sildenafil (pulm.hypertension) 20 10 mg PO TID 03/09/23 11/10/24 History mg tablet (Revatio) Tresiba FlexTouch U-100 100 20 unit (0.2 mL) subcut HS #30 mL 07/11/23 11/10/24 Rx unit/mL (3 mL) subcutaneous pen (insulin degludec) insulin aspart 10 unit subcut TIDM #30 mL 07/11/23 05/18/25 Rx (niacinamide)(U-100) 100 unit/mL(3 mL) subcutaneous pen (Fiasp FlexTouch U-100 Insulin) escitalopram oxalate 10 mg tablet 10 mg PO QAM #30 tabs 10/23/24 05/18/25 Rx metoprolol succinate 25 mg 25 mg PO BID #60 tabs 10/23/24 05/18/25 Rx tablet,extended release 24 hr montelukast 10 mg tablet 10 mg PO HS #30 tabs 10/23/24 11/10/24 Rx spironolactone 25 mg tablet 12.5 mg (1/2 x 25 mg) PO DAILY #15 10/23/24 05/18/25 Rx tabs umeclidinium 62.5 mcg/actuation 1 inh inhalation DAILY #30 ea 10/23/24 05/18/25 Rx blister powder for inhalation (Incruse Ellipta) apixaban 5 mg tablet (Eliquis) 5 mg PO BID #60 tabs 11/17/24 05/18/25 Rx alendronate 70 mg tablet 70 mg PO WK 05/18/25 05/18/25 History bupropion HCl 150 mg 24 hr tablet, 150 mg PO DAILY 05/18/25 05/18/25 History extended release prednisolone acetate 1 % eye 1 drp QID 05/18/25 05/18/25 History drops,suspension Patient History Medical History Sleep apnea inconsistent use/toleration issues. Nausea and vomiting after administration of anesthetic agent Neuropathy legs/stimular for right side/doesn't work battery is . Diabetic retinopathy injections for / most recent 3 wks ago/upcoming Mar 18 2023. Chronic cough no change in baseline. Oxygen deficiency o2 2-3L prn. Last need of oxygen September 2022. baseline oxygen sat 88 %, recently been in the s. COPD (chronic obstructive pulmonary disease) denies recent flares. Asthma last use rescue inhler 1 wk or so ago. Denies recent flares. HTN (hypertension) Type 2 diabetes mellitus History of fracture of leg Right femoral condyle fracture 2021/no sx intervention as of current/knee replacement was advised. B12 deficiency hx History of COVID-19 Pneumonia with ARDS in 2020, 3 months hospitalization, shorter hospitalization in 2022. Surgical History History of cataract surgery right and left. History of bilateral breast reduction surgery History of surgery stimulator placement. History of x2 History of back surgery History of hysterectomy History of colonoscopy Family History Father Stroke Heart disease Cancer skin Mother Breast cancer Grandmother (Paternal) Breast cancer Social History Smoking Status: Former smoker Tobacco Type: Cigarettes Second Hand Exposure: No; Do You Dip or Chew Tobacco: No; Tobacco Cessation Education Requested by Patient: No Hx Alcohol Use: No Hx Substance Use: No Preferred Language: Chinese Communication Ability: [facility] Visualizer Required: No Beliefs That Will Affect Care: None Current Living Situation: Spouse Current Living Situation Comment: daughter (handicap) Other Information That Helps Us Care for You: No Feels Safe at Home: Yes Safety Concerns: Feels Safe At This Time Assistive Devices: Cane, Oxygen - Continuous and Walker Review of Systems Review of Systems: Please refer to admission H&P. No additions or deletions Physical Exam Constitutional: WD/WN, vitals as above Eyes: no conjunctival abnormality ENMT: Ears: no hearing impairment and no external ear abnormality Neck: trachea midline Respiratory: normal respiratory effort; no respiratory distress and no labored breathing Cardiovascular: Rate/Rhythm: regular rate and regular rhythm Gastrointestinal (Abdomen): Patient's abdomen is soft without rigidity. There is some voluntary guarding but there is no rebound tenderness or other signs of peritonitis. Patient did have some generalized pain with palpation in the lower abdomen. Musculoskeletal: No calf tenderness Skin: no rashes Neurologic: moves all extremities Psychiatric: A+Ox3, euthymic affect Results & Data Results & Data Vital Signs (Past 12 Hours) Vital Signs Temp Pulse Pulse Pulse Resp BP BP 05/19/25 13:59 97 H 16 72/46 L 05/19/25 13:08 98 H 16 88/58 L 05/19/25 11:40 36.7 C 87 18 89/54 L 05/19/25 09:00 05/19/25 07:43 36.3 C L 89 20 94/62 L 05/19/25 07:35 91 H 05/19/25 07:35 05/19/25 06:07 100 H 97/63 L Pulse Ox Pulse Ox O2 Del Method O2 Del Method O2 Flow Rate O2 Flow Rate 05/19/25 13:59 98 Nasal Cannula 2 05/19/25 13:08 98 Nasal Cannula 2 05/19/25 11:40 93 Nasal Cannula 2 05/19/25 09:00 94 Nasal Cannula 2 05/19/25 07:43 100 Nasal Cannula 2 05/19/25 07:35 05/19/25 07:35 Nasal Cannula 2 05/19/25 06:07 Critical Care Results & Data Vital Signs (Past 12 Hours) Vital Signs Temp Pulse Pulse Pulse Resp BP BP 05/19/25 13:59 97 H 16 72/46 L 05/19/25 13:08 98 H 16 88/58 L 05/19/25 11:40 36.7 C 87 18 89/54 L 05/19/25 09:00 05/19/25 07:43 36.3 C L 89 20 94/62 L 05/19/25 07:35 91 H 05/19/25 07:35 05/19/25 06:07 100 H 97/63 L Pulse Ox Pulse Ox O2 Del Method O2 Del Method O2 Flow Rate O2 Flow Rate 05/19/25 13:59 98 Nasal Cannula 2 05/19/25 13:08 98 Nasal Cannula 2 05/19/25 11:40 93 Nasal Cannula 2 05/19/25 09:00 94 Nasal Cannula 2 05/19/25 07:43 100 Nasal Cannula 2 05/19/25 07:35 05/19/25 07:35 Nasal Cannula 2 05/19/25 06:07 Lab & Micro Results (Past 24 Hours) RBC 4.29 M/uL (4.20-5.40) 05/19/25 WBC 13.09 K/ul (4.8-10.8) H 05/19/25 Hgb 12.8 g/dL (12.0-16.0) 05/19/25 Hct 37.8 % (37.0-47.0) 05/19/25 MCV 88.1 fL (80.0-100.0) 05/19/25 MCH 29.8 pg (25.0-34.0) 05/19/25 MCHC 33.9 g/dL (32.0-36.0) 05/19/25 RDW Standard Deviation 48.9 fL (36.4-46.3) H 05/19/25 RDW Coefficient of Variation 15.2 % (11.5-14.5) H 05/19/25 Plt Count 302 K/uL (130-400) 05/19/25 MPV 10.9 fL (9.4-12.4) 05/19/25 Neutrophils (%) (Auto) 86.0 % 05/19/25 Lymphocytes (%) (Auto) 9.5 % 05/19/25 Monocytes # (Auto) 0.46 K/uL (0.11-0.59) 05/19/25 Eosinophils # (Auto) 0.01 K/uL (0.00-0.50) 05/19/25 Immature Granulocyte % (Auto) 0.7 % 05/19/25 Neutrophils # (Auto) 11.26 K/uL (1.40-6.50) H 05/19/25 Lymphocytes # (Auto) 1.24 K/uL (1.20-3.40) 05/19/25 Monocytes # (Auto) 0.46 K/uL (0.11-0.59) 05/19/25 Eosinophils # (Auto) 0.01 K/uL (0.00-0.50) 05/19/25 Basophils # (Auto) 0.03 K/uL (0.00-0.20) 05/19/25 Immature Granulocyte # (Auto) 0.09 K/uL (0.01-0.20) 5 Toxic Vacuolation 1+ 05/19/25 Na 135 mmol/L (136-145) L 05/19/25 K 3.3 mmol/L (3.5-5.1) L 05/19/25 Cl 101 mmol/L (98-107) 05/19/25 CO2 25 mmol/L (21-32) 05/19/25 Anion Gap 9 (3-11) 05/19/25 BUN 26 mg/dl (6-23) H 05/19/25 Creatinine 1.09 mg/dl (0.6-1.2) 05/19/25 BUN/Creatinine Ratio 23.9 (10-20) H 05/19/25 Glu 146 mg/dl (70-99(Fasting)) H 05/19/25 Ca 7.5 mg/dl (8.6-10.3) L 05/19/25 Total Bilirubin 3.1 mg/dl (0.2-1.0) H 05/18/25 AST 17 U/L (13-39) 05/18/25 ALT 11 U/L (7-52) 05/18/25 Alkaline Phosphatase 86 U/L (34-104) 05/18/25 TP 6.7 gm/dl (6.0-8.3) 05/18/25 Albumin 3.4 gm/dl (3.4-5.0) 05/18/25 Globulin 3.3 gm/dl (2.5-4.0) 05/18/25 Albumin/Globulin Ratio 1.0 (0.9-2) 05/18/25 Mg 1.7 mg/dl (1.7-2.4) 05/18/25 22:33 Calcium Level 7.5 mg/dl (8.6-10.3) L 05/19/25 05:42 Prothromb Time International Ratio 1.2 (0.9-1.1) H 05/18/25 18 :12 Diagnostic Findings (Past 24 Hours) Abdomen/Pelvis CT 05/18/25 17:30 CR Exam(s): CT ABDOMEN + PELVIS With Contrast IV Amt: 90 ml optiray 320 EXAM: CT Abdomen and Pelvis With Intravenous Contrast CLINICAL HISTORY: left sided abd pain. TECHNIQUE: Axial computed tomography images of the abdomen and pelvis with intravenous contrast. CTDI is 27 mGy and DLP is 1408 mGy-cm. Automated exposure control was utilized for the study. A dose lowering technique was utilized adhering to the principles of ALARA. CONTRAST: Patient received 90 ml optiray 320 of IV contrast COMPARISON: Ultrasound gallbladder 10/06/2010 FINDINGS: Limitations: There is respiratory artifact, which degrades image quality on multiple image slices. Lung bases: No significant abnormality. No mass. No consolidation. ABDOMEN: Liver: No significant abnormality. No mass. Gallbladder and bile ducts: No significant abnormality. No calcified stones. No ductal dilation. Pancreas: No significant abnormality. No mass. No ductal dilation. Spleen: No significant abnormality. No splenomegaly. Adrenals: No significant abnormality. No mass. Kidneys and ureters: No significant abnormality. No solid mass. No hydronephrosis. Stomach and bowel: No evidence for focal high-grade bowel obstruction. There is extensive diverticulosis throughout the proximal sigmoid colon. There is mucosal thickening with pericolonic fat stranding and regional pneumoperitoneum which appears to extend from the bowel lumen laterally (series 300; images 39-40). There is a localized fluid and gas collection posterolateral to the sigmoid colon, measuring 1.6 x 7.3 x 7.3 cm. PELVIS: Appendix: The appendix is not clearly delineated and may be surgically absent. Bladder: No significant abnormality. No mass. Reproductive: Status post hysterectomy. ABDOMEN and PELVIS: Intraperitoneal space: There is also pneumoperitoneum surrounding the sigmoid colon and along the anterior aspect of the abdomen. Bones/joints: No acute fracture. No dislocation. Soft tissues: No significant abnormality. Vasculature: No significant abnormality. No abdominal aortic aneurysm. Lymph nodes: No significant abnormality. No enlarged lymph nodes. IMPRESSION: No evidence for focal high-grade bowel obstruction. There is extensive diverticulosis throughout the proximal sigmoid colon. There is mucosal thickening with pericolonic fat stranding and regional pneumoperitoneum which appears to extend from the bowel lumen laterally (series 300; images 39-40). There is a localized fluid and gas collection posterolateral to the sigmoid colon, measuring 1.6 x 7.3 x 7.3 cm. There is also pneumoperitoneum surrounding the sigmoid colon and along the anterior aspect of the abdomen. Findings are consistent with perforated sigmoid diverticulitis. Communications: Call Doctor Pneumoperitoneum, new or unexpected Electronically signed by: Keith Segura MD 05/18/25 21:51 PM Chest X-Ray 05/18/25 18:36 COMPARISON: 11/10/2024 FINDINGS: HEART: Normal in size. LUNGS: Chronic increased interstitial lung markings. Pulmonary scarring. Superimposed left basilar infiltrate cannot be excluded. No pneumothorax. MEEDIASTINUM: Mild mediastinal prominence. BONES: Intact. OTHER: Mediport catheter remains in place. Elevated right hemidiaphragm IMPRESSION: Chronic pulmonary scarring. Superimposed left basilar infiltrate cannot be excluded. Electronically signed by Yamil Cox 05-18-2025 7:[address] 05/18/25 23:34 EXAM: CT head/brain wo con CLINICAL HISTORY: Headache TECHNIQUE: Axial non-contrast CT scan of the brain was performed from the skull base to the high parietal region in axial, sagittal and coronal reconstructions. One of the following dose reduction techniques were utilized for this exam: Automated exposure control, adjustment of the mA and/or kV according to patient size, use of iterative reconstruction. COMPARISON: 10/18/2024, CT Head FINDINGS: Brain Parenchyma: Mild diffuse low-attenuation is identified in bilateral periventricular deep white matter, and few low-attenuation areas are identified in bilateral basal ganglia likely due to chronic microvascular ischemic changes Normal attenuation of the cerebellum, and brainstem. No evidence of acute infarct, hemorrhage, or mass effect. No abnormal areas of hyperattenuation. Ventricular System: Mildly prominent ventricular system seen, related to age No evidence of hydrocephalus. Subarachnoid Spaces: Mild to moderate widening of sulci are identified No evidence of subarachnoid hemorrhage or extra-axial fluid collections. Cerebellum and Brainstem: No masses, lesions, or areas of abnormal density. Orbits: Normal appearance of the globes, optic nerves, and extraocular muscles. No evidence of orbital masses or abnormal density. Sinuses: Possibility of minimal mucosal thickening in both ethmoid sinuses, image: 27/128 Rest of the paranasal sinuses appear unremarkable Mastoid Air Cells: Clear mastoid air cells. No evidence of mastoiditis. Skull: Normal skull morphology. IMPRESSION: 1. No evidence of intracranial hemorrhage, gross territorial infarction or mass-effect 2. Redemonstration of age appropriate volume loss in brain parenchyma and chronic microvascular ischemic changes with no gross interval change 3. No evidence of hydrocephalus 4. No tonsillar herniation seen. 5. Possibility of minimal mucosal thickening in both ethmoid sinuses, in current examination Electronically signed by Edgar Kilgore 05-19-2025 01:18 AM I & O Totals 24 Hours 05/18/25 05/19/25 05/20/25 06:59 06:59 06:59 Intake Total 1800 / 1800 959 / 959 Output Total 150 / 150 Balance 1800 / 1800 809 / 809 Cumulative 05/18/25 16:59 thru 05/19/25 14:00 Intake Total 2759 Output Total 150 Balance 2609 RT Ventilator Mngmt (Last Documented) Ventilator Ordered Settings Respiratory Rate 16 05/19/25 13:59 Ventilator - PT Measurements Respiratory Rate 16 Coding Level of Care Code 34804 CRITICAL CARE 1ST 30-74M Diagnoses Pneumoperitoneum K66.8 Diverticulitis of colon with perforation K57.20 Hypotension I95.9
[2025-05-19] MEDS: LACTATED RINGER'S 1,000 ML IV ONE (16:27)
[2025-05-19] MEDS: CALCIUM GLUCONATE 1,000 MG/60 ML BAG IV SCH (16:29)
[2025-05-19] MEDS: ICU ELECTROLYTE REPLACEMENT PROTOCOL SCH (18:32)
--- NOTE | 2025-05-19 18:37 | CT Scan Report ---
EXAMINATION: CT of the abdomen and pelvis performed without contrast TECHNIQUE: Helical CT images from the lung bases through the symphysis pubis were obtained without contrast. Coronal and sagittal reformatted images were generated at a workstation for further assessment. Dose reduction techniques were achieved by using automatic exposure control and/or adjustment of mA and/or kV according to patient size and/or use of iterative reconstruction technique. COMPARISON: None HISTORY: Abdominal pain FINDINGS: Lower chest: No consolidation. No pleural effusion or pneumothorax. Liver: No suspicious liver lesions. Gallbladder: No gallstones. No evidence of acute cholecystitis. Spleen: Normal size. Pancreas: No suspicious pancreatic lesions. The pancreatic duct is not dilated. Adrenal glands: No adrenal nodules. Kidneys: No hydronephrosis or obstructing renal stones. Bladder / Pelvic organs: Coronel catheter in place.. Bowel: No bowel obstruction. Perforated sigmoid diverticulitis, with an air/fluid collection arising from a diverticulum in the left lower quadrant. The collection measures approximately 8.3 x 3.2 cm. Mild scattered free air is seen throughout the peritoneum. Lymph nodes: No retroperitoneal, mesenteric, or pelvic lymphadenopathy. Peritoneum / Retroperitoneum: No free fluid or air within the abdomen. Vessels: No infrarenal aortic aneurysm. Bones and soft tissues: No suspicious lesion in the bones. IMPRESSION: Findings of perforated sigmoid diverticulitis. A left lower quadrant air/fluid collection is seen, and there is mild free air throughout the peritoneum. Electronically signed by Constantin Mccabe 05-19-2025 6:36 PM
[2025-05-19] MEDS: STAT IV Infusion **Titration per Protocol STA (19:04)
[2025-05-19] MEDS: LACTATED RINGER'S 500 ML IV ONE (23:16)
--- NOTE | 2025-05-19 23:38 | Communication Note ---
<Statement entered by Keyanna Velasco, - 05/20/25 07:27> This was discussed with the PA overnight Date of Service: May 19, 2025 This is a 69-year-old female who is admitted with perforated sigmoid diverticulitis. Patient has been transferred to intensive care unit since admission due to hypotension. Patient was assessed multiple times this shift thus far and she is noted to have episodes of hypotension while sleeping but upon awakening her blood pressure is normal with most recent reading of 103/55. She has not had any episodes of tac hycardia or fever. She has not required any pressors. On physical exam patient's abdomen is soft and nonrigid but she does have tenderness with palpation which is greatest in the left lower quadrant. The patient verbally notes that her pain has improved since admission. Will continue with plan as previously outlined with n.p.o. status, intravenous fluids, and antibiotics in the form of Zosyn. Patient reevaluated at bedside at approximately 4:00 AM. I discussed with the nurse attending the patient's. Patient has had some blood pressure readings with systolic in the high 80s to mid 90s. I examined the patient at bedside and upon waking the patient and checking her blood pressure her blood pressure increased to 105/33 without any intervention. She notes that her abdominal pain is no worse. On physical exam her abdomen remains soft and appears somewhat less tender than what was noted previously. Will continue with plan as outlined above
[2025-05-20 05:12] LABS: Anion Gap 6.0 (3-11); Blood Urea Nitrogen 30.0 mg/dl (6-23); Calcium 7.4 mg/dl (8.6-10.3); Carbon Dioxide 25.0 mmol/L (21-32); Chloride 104.0 mmol/L (98-107); Creatinine Clr Calc Pharmacy 50.2 ml/min; Glucose 129.0 mg/dl (70-99(Fasting)); Magnesium 1.6 mg/dl (1.7-2.4); Potassium 3.6 mmol/L (3.5-5.1); Sodium 135.0 mmol/L (136-145)
[2025-05-20 05:17] LABS: Dohle Bodies 1+; Hematocrit (blood only) 34.4 % (37.0-47.0); Hemoglobin 11.6 g/dL (12.0-16.0); Immature Granulocytes # (auto) 0.12 K/uL (0.01-0.20); Immature Granulocytes % (auto) 0.7 %; Mean Corpuscular Hemoglobin 30.0 pg (25.0-34.0); Mean Corpuscular Volume 88.9 fL (80.0-100.0); Platelet Count 253 K/uL (130-400); RDW Standard Deviation 50.8 fL (36.4-46.3); Red Blood Count 3.87 M/uL (4.20-5.40); Toxic Vacuolation 1+; White Blood Count 16.06 K/ul (4.8-10.8)
[2025-05-20] MEDS: POTASSIUM CHLORIDE / WTR 10 MEQ/100 ML PLCT IV SCH ×2 (06:00→06:03)
[2025-05-20] MEDS: MAGNESIUM SULFATE / D5W 1 GM/100 ML BAG IV SCH ×2 (06:00→06:03)
--- NOTE | 2025-05-20 07:43 | Critical Care Progress Note ---
Date of Service May 20, 2025 Assessment & Plan (1) Diverticulitis of colon with perforation: Plan: 69-year-old female with multiple medical comorbidities admitted with perforated diverticulum and peritonitis. She is on IV Zosyn with improving clinical konrad eters. WBC has worsened little bit this morning, however she is feeling better overall. She was initially transferred to the ICU due to low blood pressures however not meeting any other criteria for sepsis. Blood pressure is improving with ongoing IV fluids, not needing vasopressors so far. Pain abdomen is getting better too. #Diverticulitis sigmoid colon with perforation - Sx started on 05/17/2025 morning. Presented to ED on 05/18/2025 PM. - CT revealed diverticulosis throughout the proximal sigmoid colon and finding consistent with perforated Sigmoid colon. - Pt was HD stable on presentation, Surgery recommended Conservative management. - IV Zosyn started on 05/18; D3 of Abx today - On 05/19, pt's blood pressure worsened and She was transferred to ICU - Surgery following closely, still recommending conservative mgmt. - WBC was down trending until yesterday, which worsened this morning - WBC: 18 k---> 13 K--- 16k. - Overall symptoms getting better in terms of diverticulitis, pain better, passed gas, no fever, no sepsis criteria, lactate cleared. Hence Isolated WBC count could be a stress response as well. Patient seems really stressed with a lot of grief events in family on tops of her health concern. She was in tears this morning remembering her kids, she lost them few months back, and also her lost his two sister in last 2 weeks. - However given patient meeting SIRS criteria and having an identified source of infection, WBC could be reflective of her worsening infection. - Blood pressure in improvement, MAP > 65, not needing pressor support so far. - Pt's respiratory rate is on higher side this AM. RR 27-33. Could be 2/2 to pain or fluid overload. CMP this AM is reassuring. - Blood CS: No growth. Plan: - Continue IV zosyn. - Close monitoring for possible worsening. - Judicious pain management; pt tolerating Dilaudid. - Recheck CMP this afternoon - Would defer to surgery for deciding further management. - Start IV heparin as surgery team continues conservative mgmt - Continue NPO - Continue IV fluids. # Neuro - No concern. # Respi: HIGH RISK FOR VTE *hx of PE with chronic anticoagulation; IV heparin restarted. Can stop 4-6 hours before surgery if panned. - Need of O2, 2-3 L NC - H/O COPD, on and off use of O2 at home per pt. No wheezing on exam today. No other s/o RD except tachypnea. - Coarse BS on exam mostly on left side. - I/O in last 24 hour 5805/ 925. - Caution diuretic use given soft BP. Endo: Type 11 DM, Held home med Basal bolus insulin adjusted for n.p.o. status, ISS BG goal 110-140 Nephro/ electrolyte/ Uro - Stable creatinine. - Corrected Hypokalemia. will trend afternoon lab. - UO: 0.3 ml/kg/hour. Dispo: Patient remains critical. Surgery following. Fluid responsive, however low threshold for pressor support. DVT prophylaxis: IV heparin started, continue SCDs. (2) Hypotension: Plan Dr. De La Paz was resident physician during care of patient. I separately evaluated patient for robin portions of the history and the exam. I was present during the critical portion of medical decision making, and I discussed the case with the resident. I generally agree with the findings and plan. Patient reports she feels somewhat better than yesterday; however, she is extremely scared about need for interventions and reports she did not feel like she was going to make it. Unfortunately the patient's family has had several deaths in the last 2 years including 2 children the last approximately 3 months ago, she is concerned about the stress placed upon her . Clinically the patient has not required vasoactive medications, her lactate has cleared. She reports she is passing gas as of this morning clinically the patient appears to be optimized, awaiting definitive surgical planning. Continue antibiotics, with history of DVT diagnosed approximately 6 months ago has been on Eliquis. Currently off anticoagulation for possible emergent surgery. Will rediscuss with surgery regarding anticoagulation. update: no plan for surgery at this time, ok to start heparin, remain NPO. Patient remains critically ill with perforated viscus and sepsis. I have personally spent 45 minutes of critical care time in the direct natalie gement of this patient. This is a life/limb threatening event. This includes time spent evaluating patient, direct bedside care, chart review, placing orders, interpretation of diagnostic studies, discussion with consultants, patient, and/or family members regarding treatment decisions, as well as other required patient management activities. This time is exclusive of all separately billable procedures, and teaching time and separate from and in addition to any other critical care service time. Admission and Anticipated Discharge Date Admission Date: May 18, 2025 Subjective Zaira is feeling little better today. Pain is better than yesterday. She is more comfortable she says. Passed gas this morning. No fever, SOB, chest pain or calf pain Review of Systems Review of Systems: As per HPI Physical Exam Physical Exam: Constitutional: Well appearing, stressed, in tears HEENT: Atraumatic, Normocephalic, No conjunctival injection CVS: S1 S2 no murmur, Regular Rhythm Respiratory: Coarse BS on Left LL mostly. No increased work of breathing GI: Soft, Obese abdomen, Tenderness in LLQ, Bowel sounds not appreciated on exam. MSK: No gross deformities noted Skin: Warm, Dry, No rashes Neuro: Alert, Oriented to TPP, No Focal deficit Psych: Sad Moo, tearful, Overall Cooperative on exam Results & Data Results & Data Vital Signs (Past 12 Hours) Vital Signs Temp Pulse Resp BP Pulse Ox Pulse Ox O2 Del Method 05/20/25 06:31 103/52 L 05/20/25 06:31 103/52 L 05/20/25 06:31 103/52 L 05/20/25 06:31 103/52 L 05/20/25 06:31 103/52 L 05/20/25 06:30 83 19 96 05/20/25 06:03 83 19 95 05/20/25 06:01 119/57 L 05/20/25 06:01 119/57 L 05/20/25 06:01 119/57 L 05/20/25 06:01 119/57 L 05/20/25 06:01 119/57 L 05/20/25 06:01 119/57 L 05/20/25 06:01 119/57 L 05/20/25 06:00 83 37 H 95 05/20/25 05:30 105/61 05/20/25 05:30 105/61 05/20/25 05:30 105/61 05/20/25 05:30 105/61 05/20/25 05:30 105/61 05/20/25 05:30 83 19 96 05/20/25 05:00 98/65 L 05/20/25 05:00 98/65 L 05/20/25 05:00 98/65 L 05/20/25 05:00 98/65 L 05/20/25 05:00 98/65 L 05/20/25 05:00 85 21 95 05/20/25 04:30 86 19 95 05/20/25 04:30 98/53 L 05/20/25 04:30 98/53 L 05/20/25 04:30 98/53 L 05/20/25 04:30 98/53 L 05/20/25 04:30 98/53 L 05/20/25 04:00 110/60 05/20/25 04:00 86 22 95 05/20/25 04:00 110/60 05/20/25 04:00 110/60 05/20/25 04:00 110/60 05/20/25 04:00 110/60 05/20/25 04:00 36.6 C 05/20/25 03:58 106/62 05/20/25 03:58 106/62 05/20/25 03:58 106/62 05/20/25 03:57 89 22 94 05/20/25 03:30 89 18 96 05/20/25 03:30 96/58 L 05/20/25 03:30 96/58 L 05/20/25 03:30 96/58 L 05/20/25 03:30 96/58 L 05/20/25 03:30 96/58 L 05/20/25 03:00 87/58 L 05/20/25 03:00 87/58 L 05/20/25 03:00 87/58 L 05/20/25 03:00 87/58 L 05/20/25 03:00 87/58 L 05/20/25 03:00 87/58 L 05/20/25 03:00 85 20 95 05/20/25 02:30 87 20 95 05/20/25 02:30 99/55 L 05/20/25 02:30 99/55 L 05/20/25 02:30 99/55 L 05/20/25 02:30 99/55 L 05/20/25 02:30 99/55 L 05/20/25 02:00 89 19 94 05/20/25 02:00 82/57 L 05/20/25 02:00 82/57 L 05/20/25 02:00 82/57 L 05/20/25 02:00 82/57 L 05/20/25 02:00 82/57 L 05/20/25 01:30 101/54 L 05/20/25 01:30 101/54 L 05/20/25 01:30 101/54 L 05/20/25 01:30 101/54 L 05/20/25 01:30 101/54 L 05/20/25 01:30 89 22 94 05/20/25 01:00 93 H 21 93 05/20/25 01:00 98/53 L 05/20/25 01:00 98/53 L 05/20/25 01:00 98/53 L 05/20/25 01:00 98/53 L 05/20/25 01:00 98/53 L 05/20/25 00:30 95 H 25 H 94 05/20/25 00:30 97/59 L 05/20/25 00:30 97/59 L 05/20/25 00:30 97/59 L 05/20/25 00:30 97/59 L 05/20/25 00:30 97/59 L 05/20/25 00:00 89 19 93 05/20/25 00:00 87/56 L 05/20/25 00:00 87/56 L 05/20/25 00:00 87/56 L 05/20/25 00:00 87/56 L 05/20/25 00:00 87/56 L 05/20/25 00:00 36.5 C 05/19/25 23:48 85 38 H 94 05/19/25 23:47 95 05/19/25 23:46 90/55 L 05/19/25 23:46 90/55 L 05/19/25 23:46 90/55 L 05/19/25 23:46 90/55 L 05/19/25 23:46 90/55 L 05/19/25 23:45 86 24 93 05/19/25 23:44 93/57 L 05/19/25 23:44 93/57 L 05/19/25 23:42 86 35 H 95 05/19/25 23:30 87 36 H 93 05/19/25 23:30 85/53 L 05/19/25 23:30 85/53 L 05/19/25 23:30 85/53 L 05/19/25 23:30 85/53 L 05/19/25 23:30 85/53 L 05/19/25 23:26 85 05/19/25 23:12 87 29 H 95 05/19/25 23:11 103/55 L 05/19/25 23:11 103/55 L 05/19/25 23:11 103/55 L 05/19/25 23:11 103/55 L 05/19/25 23:11 103/55 L 05/19/25 23:09 83 17 94 05/19/25 23:07 88/49 L 05/19/25 23:07 88/49 L 05/19/25 23:07 88/49 L 05/19/25 23:07 88/49 L 05/19/25 23:07 88/49 L 05/19/25 23:06 85 22 95 05/19/25 23:00 85/54 L 05/19/25 23:00 85/54 L 05/19/25 23:00 85/54 L 05/19/25 23:00 85/54 L 05/19/25 23:00 85/54 L 05/19/25 23:00 85 17 94 05/19/25 22:59 36.5 C 05/19/25 22:54 88 25 H 96 05/19/25 22:53 95/57 L 05/19/25 22:53 95/57 L 05/19/25 22:53 95/57 L 05/19/25 22:53 95/57 L 05/19/25 22:53 95/57 L 05/19/25 22:51 87 18 94 05/19/25 22:48 86 20 96 05/19/25 22:48 97/58 L 05/19/25 22:48 97/58 L 05/19/25 22:48 97/58 L 05/19/25 22:48 97/58 L 05/19/25 22:48 97/58 L 05/19/25 22:30 85 17 94 05/19/25 22:30 91/56 L 05/19/25 22:30 91/56 L 05/19/25 22:30 91/56 L 05/19/25 22:30 91/56 L 05/19/25 22:30 91/56 L 05/19/25 22:15 108/56 L 05/19/25 22:15 108/56 L 05/19/25 22:15 108/56 L 05/19/25 22:15 108/56 L 05/19/25 22:15 108/56 L 05/19/25 22:15 84 17 96 05/19/25 22:00 85 18 93 05/19/25 22:00 96/56 L 05/19/25 22:00 96/56 L 05/19/25 22:00 96/56 L 05/19/25 22:00 96/56 L 05/19/25 22:00 96/56 L 05/19/25 21:45 85 20 92 05/19/25 21:45 98/65 L 05/19/25 21:45 98/65 L 05/19/25 21:45 98/65 L 05/19/25 21:45 98/65 L 05/19/25 21:45 98/65 L 05/19/25 21:30 85 19 94 05/19/25 21:30 99/59 L 05/19/25 21:30 99/59 L 05/19/25 21:30 99/59 L 05/19/25 21:30 99/59 L 05/19/25 21:30 99/59 L 05/19/25 21:15 86 36 H 95 05/19/25 21:15 112/55 L 05/19/25 21:15 112/55 L 05/19/25 21:15 112/55 L 05/19/25 20:57 Nasal Cannula 05/19/25 20:45 104/65 05/19/25 20:45 104/65 05/19/25 20:45 104/65 05/19/25 20:45 104/65 05/19/25 20:45 104/65 05/19/25 20:45 104/65 05/19/25 20:45 93 H 20 91 05/19/25 20:31 36.6 C 05/19/25 20:30 89 35 H 94 05/19/25 20:15 116/58 L 05/19/25 20:15 116/58 L 05/19/25 20:15 116/58 L 05/19/25 20:15 116/58 L 05/19/25 20:15 116/58 L 05/19/25 20:15 116/58 L 05/19/25 20:15 116/58 L 05/19/25 20:15 116/58 L 05/19/25 20:15 116/58 L 05/19/25 20:15 98 H 22 94 05/19/25 20:00 94 H 21 92 05/19/25 20:00 111/64 05/19/25 20:00 111/64 05/19/25 20:00 111/64 05/19/25 20:00 111/64 05/19/25 20:00 111/64 05/19/25 19:45 111/66 05/19/25 19:45 111/66 05/19/25 19:45 111/66 05/19/25 19:45 111/66 05/19/25 19:45 111/66 05/19/25 19:45 94 H 20 93 O2 Del Method O2 Flow Rate O2 Flow Rate 05/20/25 06:31 05/20/25 06:31 05/20/25 06:31 05/20/25 06:31 05/20/25 06:31 05/20/25 06:30 05/20/25 06:03 05/20/25 06:01 05/20/25 06:01 05/20/25 06:01 05/20/25 06:01 05/20/25 06:01 05/20/25 06:01 05/20/25 06:01 05/20/25 06:00 05/20/25 05:30 05/20/25 05:30 05/20/25 05:30 05/20/25 05:30 05/20/25 05:30 05/20/25 05:30 05/20/25 05:00 05/20/25 05:00 05/20/25 05:00 05/20/25 05:00 05/20/25 05:00 05/20/25 05:00 05/20/25 04:30 05/20/25 04:30 05/20/25 04:30 05/20/25 04:30 05/20/25 04:30 05/20/25 04:30 05/20/25 04:00 05/20/25 04:00 05/20/25 04:00 05/20/25 04:00 05/20/25 04:00 05/20/25 04:00 05/20/25 04:00 05/20/25 03:58 05/20/25 03:58 05/20/25 03:58 05/20/25 03:57 05/20/25 03:30 05/20/25 03:30 05/20/25 03:30 05/20/25 03:30 05/20/25 03:30 05/20/25 03:30 05/20/25 03:00 05/20/25 03:00 05/20/25 03:00 05/20/25 03:00 05/20/25 03:00 05/20/25 03:00 05/20/25 03:00 05/20/25 02:30 05/20/25 02:30 05/20/25 02:30 05/20/25 02:30 05/20/25 02:30 05/20/25 02:30 05/20/25 02:00 05/20/25 02:00 05/20/25 02:00 05/20/25 02:00 05/20/25 02:00 05/20/25 02:00 05/20/25 01:30 05/20/25 01:30 05/20/25 01:30 05/20/25 01:30 05/20/25 01:30 05/20/25 01:30 05/20/25 01:00 05/20/25 01:00 05/20/25 01:00 05/20/25 01:00 05/20/25 01:00 05/20/25 01:00 05/20/25 00:30 05/20/25 00:30 05/20/25 00:30 05/20/25 00:30 05/20/25 00:30 05/20/25 00:30 05/20/25 00:00 05/20/25 00:00 05/20/25 00:00 05/20/25 00:00 05/20/25 00:00 05/20/25 00:00 05/20/25 00:00 05/19/25 23:48 05/19/25 23:47 Nasal Cannula 2 05/19/25 23:46 05/19/25 23:46 05/19/25 23:46 05/19/25 23:46 05/19/25 23:46 05/19/25 23:45 05/19/25 23:44 05/19/25 23:44 05/19/25 23:42 05/19/25 23:30 05/19/25 23:30 05/19/25 23:30 05/19/25 23:30 05/19/25 23:30 05/19/25 23:30 05/19/25 23:26 05/19/25 23:12 05/19/25 23:11 05/19/25 23:11 05/19/25 23:11 05/19/25 23:11 05/19/25 23:11 05/19/25 23:09 05/19/25 23:07 05/19/25 23:07 05/19/25 23:07 05/19/25 23:07 05/19/25 23:07 05/19/25 23:06 05/19/25 23:00 05/19/25 23:00 05/19/25 23:00 05/19/25 23:00 05/19/25 23:00 05/19/25 23:00 05/19/25 22:59 05/19/25 22:54 05/19/25 22:53 05/19/25 22:53 05/19/25 22:53 05/19/25 22:53 05/19/25 22:53 05/19/25 22:51 05/19/25 22:48 05/19/25 22:48 05/19/25 22:48 05/19/25 22:48 05/19/25 22:48 05/19/25 22:48 05/19/25 22:30 05/19/25 22:30 05/19/25 22:30 05/19/25 22:30 05/19/25 22:30 05/19/25 22:30 05/19/25 22:15 05/19/25 22:15 05/19/25 22:15 05/19/25 22:15 05/19/25 22:15 05/19/25 22:15 05/19/25 22:00 05/19/25 22:00 05/19/25 22:00 05/19/25 22:00 05/19/25 22:00 05/19/25 22:00 05/19/25 21:45 05/19/25 21:45 05/19/25 21:45 05/19/25 21:45 05/19/25 21:45 05/19/25 21:45 05/19/25 21:30 05/19/25 21:30 05/19/25 21:30 05/19/25 21:30 05/19/25 21:30 05/19/25 21:30 05/19/25 21:15 05/19/25 21:15 05/19/25 21:15 05/19/25 21:15 05/19/25 20:57 2 05/19/25 20:45 05/19/25 20:45 05/19/25 20:45 05/19/25 20:45 05/19/25 20:45 05/19/25 20:45 05/19/25 20:45 05/19/25 20:31 05/19/25 20:30 05/19/25 20:15 05/19/25 20:15 05/19/25 20:15 05/19/25 20:15 05/19/25 20:15 05/19/25 20:15 05/19/25 20:15 05/19/25 20:15 05/19/25 20:15 05/19/25 20:15 05/19/25 20:00 05/19/25 20:00 05/19/25 20:00 05/19/25 20:00 05/19/25 20:00 05/19/25 20:00 05/19/25 19:45 05/19/25 19:45 05/19/25 19:45 05/19/25 19:45 05/19/25 19:45 05/19/25 19:45 Resident Activity Tracking Resident Involvement: Resident Care Provided Care Provided: Adult Hospital Medicine
[2025-05-20] MEDS: HYDROmorphone INJ 0.5 MG/0.5 ML SYR IV PRN (07:50)
--- NOTE | 2025-05-20 08:23 | Billing Data ---
Date of Service May 20, 2025 Coding Level of Care Code 87943 CRITICAL CARE
[2025-05-20] MEDS: NOREPINEPHRINE/D5W 4 MG/250 ML PLCT IV SCH (10:13)
[2025-05-20] MEDS: HEPARIN 25000 UNIT/500 ML D5W 25,000 UNITS/500 ML BAG IV SCH (10:18)
[2025-05-20] MEDS: HEPARIN SOD (PORCINE) 1000 UNIT/ML IV ONE (10:18)
[2025-05-20] MEDS: Heparin IV Adult Wt-Based Standard w/ INITIAL Bolus Protocol IV SCH (11:21)
--- NOTE | 2025-05-20 12:21 | Surgery Progress Note ---
Date of Service May 20, 2025 Assessment & Plan (1) Diverticulitis of colon with perforation: Plan The patient has remained afebrile and HD stable overnight since fluid resuscitation. Leukocytosis did slightly increase today I have reviewed the patients follow up CT A/P with radiology who believes the new CT performed last night appears slightly improved. Forming abscess pocket of mostly air with only a minimal amount of fluid is similar to CT at presentation and is not amenable to drainage at this time Clinically the patient also continues to feel improvement. Will continue with conservative management for now Continue NPO F/U am labs Admission and Anticipated Discharge Date Admission Date: May 18, 2025 Subjective The patient has been seen and examined this am. She denies nausea and admits to decreasing abdominal pain. Physical Exam Constitutional: + obese; not in distress and not diaphor etic Respiratory: normal respiratory effort; no respiratory distress, no labored breathing and does not use accessory muscles Cardiovascular: Rate/Rhythm: regular rate; not tachycardic Gastrointestinal (Abdomen): Percussion/Palpation: + abdomen tender (moderately TTP LLQ, mildly TTP generally) and abdomen soft; no guarding obese Results & Data Vital Signs (Past 12 Hours) Vital Signs Temp Pulse Resp BP Pulse Ox O2 Del Method O2 Flow Rate 05/20/25 08:00 89 33 H 112/71 94 Nasal Cannula 2 05/20/25 08:00 85 05/20/25 07:30 80 27 H 117/62 96 05/20/25 07:00 82 18 97/62 L 94 05/20/25 06:31 103/52 L 05/20/25 06:31 103/52 L 05/20/25 06:31 103/52 L 05/20/25 06:31 103/52 L 05/20/25 06:31 103/52 L 05/20/25 06:30 83 19 96 05/20/25 06:03 83 19 95 05/20/25 06:01 119/57 L 05/20/25 06:01 119/57 L 05/20/25 06:01 119/57 L 05/20/25 06:01 119/57 L 05/20/25 06:01 119/57 L 05/20/25 06:01 119/57 L 05/20/25 06:01 119/57 L 05/20/25 06:00 83 37 H 95 05/20/25 05:30 105/61 05/20/25 05:30 105/61 05/20/25 05:30 105/61 05/20/25 05:30 105/61 05/20/25 05:30 105/61 05/20/25 05:30 83 19 96 05/20/25 05:00 98/65 L 05/20/25 05:00 98/65 L 05/20/25 05:00 98/65 L 05/20/25 05:00 98/65 L 05/20/25 05:00 98/65 L 05/20/25 05:00 85 21 95 05/20/25 04:30 86 19 95 05/20/25 04:30 98/53 L 05/20/25 04:30 98/53 L 05/20/25 04:30 98/53 L 05/20/25 04:30 98/53 L 05/20/25 04:30 98/53 L 05/20/25 04:00 110/60 05/20/25 04:00 86 22 95 05/20/25 04:00 110/60 05/20/25 04:00 110/60 05/20/25 04:00 110/60 05/20/25 04:00 110/60 05/20/25 04:00 36.6 C 05/20/25 03:58 106/62 05/20/25 03:58 106/62 05/20/25 03:58 106/62 05/20/25 03:57 89 22 94 05/20/25 03:30 89 18 96 05/20/25 03:30 96/58 L 05/20/25 03:30 96/58 L 05/20/25 03:30 96/58 L 05/20/25 03:30 96/58 L 05/20/25 03:30 96/58 L 05/20/25 03:00 87/58 L 05/20/25 03:00 87/58 L 05/20/25 03:00 87/58 L 05/20/25 03:00 87/58 L 05/20/25 03:00 87/58 L 05/20/25 03:00 87/58 L 05/20/25 03:00 85 20 95 05/20/25 02:30 87 20 95 05/20/25 02:30 99/55 L 05/20/25 02:30 99/55 L 05/20/25 02:30 99/55 L 05/20/25 02:30 99/55 L 05/20/25 02:30 99/55 L 05/20/25 02:00 89 19 94 05/20/25 02:00 82/57 L 05/20/25 02:00 82/57 L 05/20/25 02:00 82/57 L 05/20/25 02:00 82/57 L 05/20/25 02:00 82/57 L 05/20/25 01:30 101/54 L 05/20/25 01:30 101/54 L 05/20/25 01:30 101/54 L 05/20/25 01:30 101/54 L 05/20/25 01:30 101/54 L 05/20/25 01:30 89 22 94 05/20/25 01:00 93 H 21 93 05/20/25 01:00 98/53 L 05/20/25 01:00 98/53 L 05/20/25 01:00 98/53 L 05/20/25 01:00 98/53 L 05/20/25 01:00 98/53 L 05/20/25 00:30 95 H 25 H 94 05/20/25 00:30 97/59 L 05/20/25 00:30 97/59 L 05/20/25 00:30 97/59 L 05/20/25 00:30 97/59 L 05/20/25 00:30 97/59 L PG Care Time/CCT Total # of Minutes Spent Total Time Spent with Patient: Total time spent is greater than 50% in coordination of care (as documented) at patient's floor/unit and/or counseling patient: Coding Level of Care Code 44297 SUB INP/OBS CARE MIN Diagnoses Diverticulitis of colon with perforation K57.20
--- NOTE | 2025-05-20 13:48 | Hospitalist Progress Note ---
<Statement entered by Robb Damon, DO - 05/20/25 15:27> Clincially improving. can move out of the ICU. Appreciate surgery input. Continue zosyn. follow cultures. Remain NPO for now. COntinue IVF Seen and examined I spent a total of 22 minutes coordinating, documenting, and providing care for this patient excluding time spent in the performance of separately billed s ervices. This included personally reviewing all current laboratories and imaging studies, medical reconciliation, outpatient chart review and discussion with specialists Date of Service May 20, 2025 Assessment & Plan (1) Sepsis: (2) Diverticulitis of colon with perforation: Plan Patient is a 69y/o F with PMHx significant for DMII, hyperlipidemia, asthmaCOPD overlap, ILD, PARRIS, hypertension, GERD and pulmonary hypertension who presented to the ED on 05/18/25 with c/o severe left-sided abdominal pain and was found to have perforated sigmoid diverticulitis on admitting CTAP. Sepsis 2/2 below >> Sepsis now resolved. Likely from gut translocation. Normal lactate, tachycardia improved. Acute peritonitis 2/2 perforated sigmoid diverticulitis Pt transferred to ICU yesterday 2/2 hypotension and MAP of 55 s/p IVF bolus. BP has been fluid responsive, MAP now >65. Has not required pressor support thus far. General surgery following closely: still recommending conservative management via strict NPO status, ABX and IVF. Pt passing flatus today, abd pain somewhat improved. Afebrile, BP in the 110s/60s this afternoon. Slight WBC uptrend this AM but no changes in current plan. RR on higher side but remains on baseline 2-3L NC, could be 2/2 pain and grief rx. Pt extremely anxious and tearful 2/2 recent grief events, lost both children over the past year. Plus had 2 SILs pass over the past month. Continue IV Zosyn, close monitoring for potential worsening. Okay for restart IV heparin per general surgery as no plans for surgical intervention as this time (was placed on hold yesterday as precaution given hypotension). 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 Pulmonary fibrosis and emphysema/ILD/asthma Pt with dry cough symptoms, no wheezing on exam. On baseline 2-3L NC. PARRIS Nonadherent to CPAP at home. Type II DM Holding home oral medications; suboptimal control as of recent Hgb A1c 8.2% in March 2025. Basal/bolus insulin regimen adjusted for NPO status, BSG goal 110-140. Other chronic medical conditions: HLD - Resume statin therapy as able. DVT Prophylaxis: IV heparin, Eliquis on hold as per above Code Status: FULL CODE PCP: Leighton Pinto DO Disposition: DC plans uncertain at this time, appreciate PT/OT once clinical status improves. Patient seen in collaboration with Dr. Damon. Please see addendum. I spent a total of 50 minutes coordinating, documenting, and providing care for this patient excluding time spent in the performance of separately billed services or time spent by another provider/QHP. This included personally revie wing all current laboratories and imaging studies, medical reconciliation, outpatient chart review and discussion with specialists. Admission and Anticipated Discharge Date Admission Date: May 18, 2025 Subjective Patient seen and examined in room E107-1 this afternoon. Tearful but well- engaged in conversation. Abdominal pain improving. Denies any N/V. Passing flatus. Slept okay overnight. Remains afebrile. Review of Systems Review of Systems: At least ten systems reviewed and negative, except as noted in the subjective section. Physical Exam Physical Exam: General: Obese F, NAD. Laying down in bed. A&Ox3, tearful affect. HEENT: Normocephalic, atraumatic. External ear and nose normal, oropharynx appears dry. Respiratory: Normal respiratory effort, diminished bilaterally, coarse. On 2L NC. No accessory muscle use. Cardiovascular: RRR, no BLE pitting edema. Abdomen/GI: Hypoactive bowel sounds, soft. TTP primarily in the LLQ. No guarding. Extremities/Musculoskeletal: No cyanosis or clubbing, actively moves all extremities. Neurologic: No overt focal deficits, CN's II-XI not formally tested but appear grossly intact bilaterally. Results & Data Results & Data Vital Signs (Past 12 Hours) Vital Signs Temp Pulse Resp BP Pulse Ox O2 Del Method O2 Flow Rate 05/20/25 12:00 36.8 C 05/20/25 08:00 Nasal Cannula 2 05/20/25 08:00 89 33 H 112/71 94 Nasal Cannula 2 05/20/25 08:00 85 05/20/25 07:30 80 27 H 117/62 96 05/20/25 07:00 82 18 97/62 L 94 05/20/25 06:31 103/52 L 05/20/25 06:31 103/52 L 05/20/25 06:31 103/52 L 05/20/25 06:31 103/52 L 05/20/25 06:31 103/52 L 05/20/25 06:30 83 19 96 05/20/25 06:03 83 19 95 05/20/25 06:01 119/57 L 05/20/25 06:01 119/57 L 05/20/25 06:01 119/57 L 05/20/25 06:01 119/57 L 05/20/25 06:01 119/57 L 05/20/25 06:01 119/57 L 05/20/25 06:01 119/57 L 05/20/25 06:00 83 37 H 95 05/20/25 05:30 105/61 05/20/25 05:30 105/61 05/20/25 05:30 105/61 05/20/25 05:30 105/61 05/20/25 05:30 105/61 05/20/25 05:30 83 19 96 05/20/25 05:00 98/65 L 05/20/25 05:00 98/65 L 05/20/25 05:00 98/65 L 05/20/25 05:00 98/65 L 05/20/25 05:00 98/65 L 05/20/25 05:00 85 21 95 05/20/25 04:30 86 19 95 05/20/25 04:30 98/53 L 05/20/25 04:30 98/53 L 05/20/25 04:30 98/53 L 05/20/25 04:30 98/53 L 05/20/25 04:30 98/53 L 05/20/25 04:00 110/60 05/20/25 04:00 86 22 95 05/20/25 04:00 110/60 05/20/25 04:00 110/60 05/20/25 04:00 110/60 05/20/25 04:00 110/60 05/20/25 04:00 36.6 C 05/20/25 03:58 106/62 05/20/25 03:58 106/62 05/20/25 03:58 106/62 05/20/25 03:57 89 22 94 05/20/25 03:30 89 18 96 05/20/25 03:30 96/58 L 05/20/25 03:30 96/58 L 05/20/25 03:30 96/58 L 05/20/25 03:30 96/58 L 05/20/25 03:30 96/58 L 05/20/25 03:00 87/58 L 05/20/25 03:00 87/58 L 05/20/25 03:00 87/58 L 05/20/25 03:00 87/58 L 05/20/25 03:00 87/58 L 05/20/25 03:00 87/58 L 05/20/25 03:00 85 20 95 05/20/25 02:30 87 20 95 05/20/25 02:30 99/55 L 05/20/25 02:30 99/55 L 05/20/25 02:30 99/55 L 05/20/25 02:30 99/55 L 05/20/25 02:30 99/55 L 05/20/25 02:00 89 19 94 05/20/25 02:00 82/57 L 05/20/25 02:00 82/57 L 05/20/25 02:00 82/57 L 05/20/25 02:00 82/57 L 05/20/25 02:00 82/57 L Laboratory Results Short CBC 05/20/25 Range/Units 04:40 WBC 16.06 H (4.8-10.8) K/ul Hgb 11.6 L (12.0-16.0) g/dL Hct 34.4 L (37.0-47.0) % Plt Count 253 (130-400) K/uL BMP 05/20/25 04:40 Sodium 135 L Potassium 3.6 Chloride 104 Carbon Dioxide 25 BUN 30 H Creatinine 1.07 Glucose 129 H Calcium 7.4 L
[2025-05-20 14:57] LABS: Alanine Aminotransferase 9.0 U/L (7-52); Albumin Globulin Ratio 0.9 (0.9-2); Albumin Level 2.4 gm/dl (3.4-5.0); Alkaline Phosphatase 92.0 U/L (34-104); Anion Gap 5.0 (3-11); Bilirubin,Total 1.3 mg/dl (0.2-1.0); Blood Urea Nitrogen 29.0 mg/dl (6-23); Calcium 7.4 mg/dl (8.6-10.3); Carbon Dioxide 25.0 mmol/L (21-32); Chloride 104.0 mmol/L (98-107); Creatinine Clr Calc Pharmacy 62.8 ml/min; Globulin 2.7 gm/dl (2.5-4.0); Glucose 146.0 mg/dl (70-99(Fasting)); Potassium 3.8 mmol/L (3.5-5.1); Sodium 134.0 mmol/L (136-145); Total Protein 5.1 gm/dl (6.0-8.3)
[2025-05-20 19:37] LABS: ANTI-Xa, UFH(UnfractionatedHep 0.77 IU/ml (0.3-0.7)
[2025-05-21 02:18] LABS: ANTI-Xa, UFH(UnfractionatedHep 0.59 IU/ml (0.3-0.7)
[2025-05-21 04:58] LABS: Hematocrit (blood only) 33.1 % (37.0-47.0); Hemoglobin 11.3 g/dL (12.0-16.0); Immature Granulocytes # (auto) 0.12 K/uL (0.01-0.20); Immature Granulocytes % (auto) 0.6 %; Mean Corpuscular Hemoglobin 30.1 pg (25.0-34.0); Mean Corpuscular Volume 88.3 fL (80.0-100.0); Platelet Count 267 K/uL (130-400); RDW Standard Deviation 50.0 fL (36.4-46.3); Red Blood Count 3.75 M/uL (4.20-5.40); White Blood Count 19.04 K/ul (4.8-10.8)
[2025-05-21 05:14] LABS: Anion Gap 7.0 (3-11); Blood Urea Nitrogen 21.0 mg/dl (6-23); Calcium 7.4 mg/dl (8.6-10.3); Carbon Dioxide 24.0 mmol/L (21-32); Chloride 104.0 mmol/L (98-107); Creatinine Clr Calc Pharmacy 75.4 ml/min; Glucose 126.0 mg/dl (70-99(Fasting)); Magnesium 2.1 mg/dl (1.7-2.4); Potassium 3.4 mmol/L (3.5-5.1); Sodium 135.0 mmol/L (136-145)
[2025-05-21] MEDS ORDERED: POTASSIUM PHOS 3 MMOL/1 ML INFUSION IV STA (05:37)
[2025-05-21] MEDS: POTASSIUM PHOSPHATE 15 MMOL in SODIUM CHLORIDE 0.9% 250 ML IV ONE (06:32)
[2025-05-21] MEDS: POTASSIUM CHLORIDE / WTR 10 MEQ/100 ML PLCT IV SCH (06:35)
--- NOTE | 2025-05-21 08:09 | Critical Care Progress Note ---
Date of Service May 21, 2025 Assessment & Plan (1) Diverticulitis of colon with perforation: Plan: 69-year-old female with multiple medical comorbidities admitted with perforated diverticulum and peritonitis. She is on IV Zosyn with improving clinical konrad eters. WBC has worsened little bit this morning, however she is feeling better overall. She was initially transferred to the ICU due to low blood pressures Blood pressure is improving with ongoing IV fluids, not needing vasopressors so far. Pain abdomen is getting better too. #Diverticulitis sigmoid colon with perforation - Sx started on 05/17/2025 morning. Presented to ED on 05/18/2025 PM. - CT revealed diverticulosis throughout the proximal sigmoid colon and finding consistent with perforated Sigmoid colon. - Pt was HD stable on presentation, Surgery recommended Conservative management. - IV Zosyn started on 05/18; D4 of Abx today - On 05/19, pt's blood pressure worsened and she was transferred to ICU - Surgery following closely, still recommending conservative mgmt. - WBC: 18 k---> 13 K--- 16k---> 19k(05/21/2025) - Blood pressure in improvement, MAP > 65, not needing pressor support so far. - Blood CS: No growth. Plan: - Continue IV zosyn. - Close monitoring for possible worsening. - Judicious pain management; pt tolerating Dilaudid. - Would defer to surgery for deciding further management. - Continue IV heparin as surgery team continues conservative mgmt - Continue NPO - Continue IV fluids. # Neuro - No concern. # Respi: HIGH RISK FOR VTE *hx of PE with chronic anticoagulation; IV heparin restarted. Can stop 4-6 hours before surgery if panned. - Need of O2, 2-3 L NC - H/O COPD, on and off use of O2 at home per pt. No wheezing on exam today. No other s/o RD except tachypnea. - Continue IV heparin pending surgery plan. If no definitive Intervention plan, could switch to Eliquis. Endo: Type 11 DM, Held home med Basal bolus insulin adjusted for n.p.o. status, ISS BG goal 110-140 Nephro/ electrolyte/ Uro - Stable creatinine. - Hypokalemia 3.4, s/p KCL. - Trend AM lab Dispo: Patient hemodynamically stable. Downgrade from ICU. Surgery following. DVT prophylaxis: IV heparin started, continue SCDs. (2) Hypotension: Plan Dr. De La Paz was resident physician during care of patient. I separately evaluated patient for robin portions of the history and the exam. I was present during the critical portion of medical decision making, and I discussed the case with the resident. I generally agree with the findings and plan. Patient reports pain better than yesterday, still having mild peritoneal signs that she is having abdominal pain with deep cough. Patient not required pressor s during this treatment interval. Continue with Zosyn empirically anticipate minimum 14-day course, deferring to surgery for form of definitive management: Operative versus IR drainage versus continued medical management. If continuing nonoperative management would start low residual volume diet: Clears/liquid. Continue heparin until more defined timeline of possible intervention: Would consider reinitiation of Eliquis. Given lack of acute critical care, we will sign off at this time please contact us for any questions or concerns. Admission and Anticipated Discharge Date Admission Date: May 18, 2025 Subjective Zaira endorsed pain abdomen worse on coughing, however nothing closer to how she came in. She is having a lot of dry cough, and bothering her belly. No nausea, vomiting. Passing gas regularly. No fever, SOB, CP, Calf pain. MAP was maintained with IV fluids. She expresses not feeling great as she has not eaten for this many days, however still refused nausea, vomiting. She feels overall very weak she says. She expressed to me that she would like to have a definite answer about her further management, still open to surgical plan if needed, even though she scared about it. Review of Systems Review of Systems: As per HPI Physical Exam Physical Exam: Constitutional: Well appearing, HEENT: Atraumatic, Normocephalic, No conjunctival injection CVS: S1 S2 no murmur, Regular Rhythm Respiratory: BL equal breath sound. No increased work of breathing GI: Soft, Obese abdomen, Tenderness in LLQ, Bowel sound + MSK: No gross deformities noted Skin: Warm, Dry, No rashes Neuro: Alert, Oriented to TPP, No Focal deficit Psych: Sad Moo, tearful, Overall Cooperative on exam Results & Data Results & Data Vital Signs (Past 12 Hours) Vital Signs Pulse Resp BP Pulse Ox Pulse Ox O2 Del Method O2 Flow Rate 05/21/25 06:00 82 19 95 05/21/25 05:33 124/93 05/21/25 05:33 124/93 05/21/25 05:33 124/93 05/21/25 05:33 124/93 05/21/25 05:33 124/93 05/21/25 05:33 82 14 94 05/21/25 05:30 87 31 H 91 05/21/25 05:00 97 H 24 85 L 05/21/25 04:30 78 18 94 05/21/25 04:00 74 26 H 95 05/21/25 04:00 107/56 L 05/21/25 04:00 107/56 L 05/21/25 04:00 107/56 L 05/21/25 04:00 107/56 L 05/21/25 04:00 107/56 L 05/21/25 03:30 79 26 H 93 05/21/25 03:01 114/63 05/21/25 03:01 114/63 05/21/25 03:01 114/63 05/21/25 03:01 114/63 05/21/25 03:01 114/63 05/21/25 03:00 80 40 H 93 05/21/25 02:00 141/76 H 05/21/25 02:00 141/76 H 05/21/25 02:00 141/76 H 05/21/25 02:00 141/76 H 05/21/25 02:00 141/76 H 05/21/25 02:00 93 H 22 92 05/21/25 01:00 78 20 94 05/21/25 01:00 112/66 05/21/25 01:00 112/66 05/21/25 01:00 112/66 05/21/25 01:00 112/66 05/21/25 01:00 112/66 05/21/25 00:00 109/64 05/21/25 00:00 109/64 05/21/25 00:00 109/64 05/21/25 00:00 109/64 05/21/25 00:00 109/64 05/21/25 00:00 82 22 94 05/20/25 23:00 125/67 05/20/25 23:00 125/67 05/20/25 23:00 125/67 05/20/25 23:00 125/67 05/20/25 23:00 125/67 05/20/25 23:00 86 19 94 05/20/25 23:00 97 Nasal Cannula 2 05/20/25 22:00 84 22 93 05/20/25 22:00 113/63 05/20/25 22:00 113/63 05/20/25 22:00 113/63 05/20/25 22:00 113/63 05/20/25 22:00 113/63 05/20/25 21:00 90 19 94 05/20/25 21:00 110/59 L 05/20/25 21:00 110/59 L 05/20/25 21:00 110/59 L 05/20/25 21:00 110/59 L 05/20/25 21:00 110/59 L Resident Activity Tracking Resident Involvement: Resident Care Provided Care Provided: Adult Hospital Medicine
[2025-05-21 08:14] LABS: ANTI-Xa, UFH(UnfractionatedHep 0.56 IU/ml (0.3-0.7)
[2025-05-21] MEDS: D5W AND LACTATED RINGERS 1,000 ML IV SCH (10:22)
--- NOTE | 2025-05-21 10:30 | Billing Data ---
Date of Service May 21, 2025 Coding Level of Care Code 13886 SUB INP/OBS CARE
[2025-05-21] MEDS: DEXTROMETHORPHAN POLYMR COMPLX 30MG/5 ML BTL PO PRN (10:51)
--- NOTE | 2025-05-21 11:01 | CT Scan Report ---
CT OF THE ABDOMEN AND PELVIS WITHOUT CONTRAST CLINICAL HISTORY: Worsening leukocytosis, perforated colon COMPARISON STUDY: 05/19/2025 TECHNIQUE: Axial images of the abdomen and pelvis were obtained without IV contrast. Images were revi ewed in the axial, sagittal, and coronal planes. Automated exposure control was utilized for the abimael dy. A dose lowering technique was utilized adhering to the principles of ALARA. FINDINGS: Lung bases: The heart is enlarged. There is minimal pericardial thickening. There are trace pleural e ffusions. There is lower lobe pulmonary articulation possibly secondary to underlying interstitial kamran ng disease. Liver: No focal hepatic masses are visualized in this noncontrast study. Gallbladder: No abnormalities identified. Spleen: No splenic masses identified. Pancreas: No ductal dilatation. No pancreatic masses identified in this noncontrast study. Adrenal glands: No adrenal masses are visualized. Kidneys: There is no hydronephrosis. There is a 2 mm nonobstructing mid pole left renal calculus. The re is bilateral perinephric stranding. Abdominal vasculature: There is no evidence of abdominal aortic aneurysm. Bowel: There are no transition zones indicate bowel obstruction. There is pandiverticulosis. There is bowel wall thickening involving the proximal sigmoid colon with an adjacent extraluminal air-fluid l evel. The collection measures 8 x 3 x 6 cm. The findings are consistent with perforated diverticuliti s. There is associated free intraperitoneal air relatively similar in volume to the prior study. Th e appendix is nonvisualized with certainty. Peritoneum: There is free peritoneal air relatively similar to the preceding study. Lymphadenopathy: There are no pathologically enlarged abdominal or pelvic lymph nodes. Pelvic viscera: The patient is status post a prior hysterectomy. A small fluid collection within the right adnexa, likely representing focal free fluid although an ovarian cyst could appear similar. Th ere is an indwelling Coronel catheter. Skeletal structures: There is an old superior endplate L2 compression deformity. There is spinal stim ulator present. No suspicious lytic or blastic skeletal lesions are visualized. IMPRESSION: 1. Perforated sigmoid diverticulitis with mild inferior intraperitoneal air relatively similar to the prior study 2. Peridiverticular air-fluid collection, similar in size to the prior study measuring 8 x 6 x 3 cm. ACT 112: Negative or not required by law. Electronically signed by: Dashawn Velasquez M.D. 05/21/2025 10:59 AM
--- NOTE | 2025-05-21 11:47 | Hospitalist Progress Note ---
<Statement entered by Robb Damon, DO - 05/21/25 17:09> Pain is improving. WBC increased slightly today. recheck in AM. if rising or develops fever, would recheck CT AP to look for abscess Appreciate surgery input remains NPO. if no diet in the next day or two, would start PPN or TPN Continue Zosyn . transfer out of ICU today .Seen and examined. patient sleeping comfortably in ICU I spent a total of 20 minutes coordinating, documenting, and providing care for this patient excluding time spent in the performance of separately billed services. This included personally reviewing all current laboratories and imaging studies, medical reconciliation, outpatient chart review and discussion with specialists Date of Service May 21, 2025 Assessment & Plan (1) Sepsis: (2) Diverticulitis of colon with perforation: Plan Patient is a 69y/o F with PMHx significant for DMII, hyperlipidemia, asthmaCOPD overlap, ILD, PARRIS, hypertension, GERD and pulmonary hypertension who presented to the ED on 05/18/25 with c/o severe left-sided abdominal pain and was found to have perforated sigmoid diverticulitis on admitting CTAP. Sepsis 2/2 below >> Sepsis now resolved. Likely from gut translocation. Normal lactate, tachycardia improved. Acute peritonitis 2/2 perforated sigmoid diverticulitis Pt transferred to ICU on 05/19 2/2 hypotension and MAP of 55 s/p IVF bolus. BP has been fluid responsive, MAP maintained with IVF. Did not require vasopressor support. BP has improved, can downgrade to PCU. General surgery following closely: still recommending conservative management via strict NPO status, ABX and IVF. Still passing flatus. Abd pain somewhat worse than yesterday, remains afebrile however leukocytosis worsened today. Repeat lactate WNL, will repeat CTAP given worsening leukocytosis. Pt extremely anxious and tearful 2/2 recent grief events, lost both children over the past 2 years. Plus had 2 SILs pass over the past month. Continue IV Zosyn, close monitoring for potential worsening. Continue IV heparin for now as no clear plans for surgical intervention have been established, defer to general surgery. May need to consider PPN/TPN in next 1-2 days if diet not able to be resumed. 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 Pulmonary fibrosis and emphysema/ILD/asthma Pt with dry nonproductive cough, no wheezing on exam. On baseline 2-3L NC. PRN Delsym for cough added on; cough notably exacerbates her abd pain. PARRIS Nonadherent to CPAP at home. Type II DM Holding home oral medications; suboptimal control as of recent Hgb A1c 8.2% in March 2025. Basal/bolus insulin regimen adjusted for NPO status, BSG goal 110-140. Other chronic medical conditions: HLD - Resume statin therapy as able. DVT Prophylaxis: IV heparin, Eliquis on hold as per above Code Status: FULL CODE PCP: Leighton Pinto DO Disposition: DC plans uncertain at this time, appreciate PT/OT once clinical status improves. Patient with significant physical deconditioning in setting of above, highly suspect rehab will be warranted upon DC. Patient seen in collaboration with Dr. Damon. Please see addendum. I spent a total of 54 minutes coordinating, documenting, and providing care for this patient excluding time spent in the performance of separately billed services or time spent by another provider/QHP. This included personally reviewing all current laboratories and imaging studies, medical reconciliation, outpatient chart review and discussion with specialists. Admission and Anticipated Discharge Date Admission Date: May 18, 2025 Subjective Patient seen and examined in room E107-1 this morning. Abdominal pain somewhat worse when compared to yesterday. Had persistent nonproductive cough which exacerbates this. Denies any N/V. Continues to pass flatus but no BM yet. MAP maintained with IVF. Feeling quite weak. Review of Systems Review of Systems: At least ten systems reviewed and negative, except as noted in the subjective section. Physical Exam Physical Exam: General: Obese F, NAD. Laying down in bed. A&Ox3, tearful affect. Ill- appearing, appears generally uncomfortable. HEENT: Normocephalic, atraumatic. External ear and nose normal, oropharynx appears dry. Respiratory: Normal respiratory effort, diminished bilaterally, coarse. On 2L NC. No accessory muscle use. Cardiovascular: RRR, no BLE pitting edema. Abdomen/GI: Hypoactive bowel sounds, soft. TTP throughout however most prominent in the LLQ. No guarding. Extremities/Musculoskeletal: No cyanosis or clubbing, actively moves all extremities. Neurologic: No overt focal deficits, CN's II-XI not formally tested but appear grossly intact bilaterally. Results & Data Results & Data Vital Signs (Past 12 Hours) Vital Signs Pulse Resp BP Pulse Ox O2 Del Method O2 Flow Rate 05/21/25 09:00 79 15 142/79 H 95 05/21/25 08:00 81 10 L 123/72 95 05/21/25 08:00 Nasal Cannula 2 05/21/25 07:16 80 05/21/25 07:00 84 20 135/89 94 05/21/25 06:00 82 19 95 05/21/25 05:33 124/93 05/21/25 05:33 124/93 05/21/25 05:33 124/93 05/21/25 05:33 124/93 05/21/25 05:33 124/93 05/21/25 05:33 82 14 94 05/21/25 05:30 87 31 H 91 05/21/25 05:00 97 H 24 85 L 05/21/25 04:30 78 18 94 05/21/25 04:00 74 26 H 95 05/21/25 04:00 107/56 L 05/21/25 04:00 107/56 L 05/21/25 04:00 107/56 L 05/21/25 04:00 107/56 L 05/21/25 04:00 107/56 L 05/21/25 03:30 79 26 H 93 05/21/25 03:01 114/63 05/21/25 03:01 11405/21/25 03:01 11405/21/25 03:01 11405/21/25 03:01 114/63 05/21/25 03:00 80 40 H 93 05/21/25 02:00 141/76 H 05/21/25 02:00 141/76 H 05/21/25 02:00 141/76 H 05/21/25 02:00 141/76 H 05/21/25 02:00 141/76 H 05/21/25 02:00 93 H 22 92 05/21/25 01:00 78 20 94 05/21/25 01:00 05/21/25 01:00 05/21/25 01:00 112/05/21/25 01:00 112/66 05/21/25 01:00 112/66 05/21/25 00:00 109/64 05/21/25 00:00 109/64 05/21/25 00:00 109/64 05/21/25 00:00 109/64 05/21/25 00:00 109/64 05/21/25 00:00 82 22 94 Laboratory Results Short CBC 05/21/25 Range/Units 04:44 WBC 19.04 H (4.8-10.8) K/ul Hgb 11.3 L (12.0-16.0) g/dL Hct 33.1 L (37.0-47.0) % Plt Count 267 (130-400) K/uL BMP 05/20/25 05/21/25 13:57 04:44 Sodium 134 L 135 L Potassium 3.8 3.4 L Chloride 104 104 Carbon Dioxide 25 24 BUN 29 H 21 Creatinine 0.90 0.75 Glucose 146 H 126 H Calcium 7.4 L 7.4 L Liver Function 05/20/25 Range/Units 13:57 Total Bilirubin 1.3 H D (0.2-1.0) mg/dl AST 13 (13-39) U/L ALT 9 (7-52) U/L Alkaline Phosphatase 92 (34-104) U/L Albumin 2.4 L (3.4-5.0) gm/dl
[2025-05-22 06:14] LABS: Hematocrit (blood only) 32.0 % (37.0-47.0); Hemoglobin 10.7 g/dL (12.0-16.0); Immature Granulocytes # (auto) 0.18 K/uL (0.01-0.20); Immature Granulocytes % (auto) 1.4 %; Mean Corpuscular Hemoglobin 29.6 pg (25.0-34.0); Mean Corpuscular Volume 88.4 fL (80.0-100.0); Platelet Count 283 K/uL (130-400); RDW Standard Deviation 50.3 fL (36.4-46.3); Red Blood Count 3.62 M/uL (4.20-5.40); White Blood Count 13.15 K/ul (4.8-10.8)
[2025-05-22 06:37] LABS: Anion Gap 6.0 (3-11); Blood Urea Nitrogen 10.0 mg/dl (6-23); Calcium 7.3 mg/dl (8.6-10.3); Carbon Dioxide 28.0 mmol/L (21-32); Chloride 104.0 mmol/L (98-107); Creatinine Clr Calc Pharmacy 103.6 ml/min; Glucose 166.0 mg/dl (70-99(Fasting)); Magnesium 1.9 mg/dl (1.7-2.4); Potassium 3.3 mmol/L (3.5-5.1); Sodium 138.0 mmol/L (136-145)
[2025-05-22 06:42] LABS: ANTI-Xa, UFH(UnfractionatedHep 0.15 IU/ml (0.3-0.7)
[2025-05-22] MEDS ORDERED: POTASSIUM PHOS 3 MMOL/1 ML INFUSION IV STA (07:19)
[2025-05-22] MEDS: MAGNESIUM SULFATE / D5W 1 GM/100 ML BAG IV ONE (07:28)
[2025-05-22] MEDS: POTASSIUM PHOSPHATE 21 MMOL in SODIUM CHLORIDE 0.9% 500 ML IV ONE (07:39)
--- NOTE | 2025-05-22 08:00 | Surgery Progress Note ---
Date of Service May 22, 2025 Assessment & Plan (1) Diverticulitis of colon with perforation: Plan Patient yesterday looks worse than today, she clinically appears to be improving. Hopefully she is now responding well to the IV antibiotics. Plan was initially for surgical intervention today but given that her white blood cell count is improved and she is hemodynamically stable and less tender, we will observe for now. Continue IV antibiotics, out of bed to chair is much as possible and ambulate is much as possible. Consider repeat CT scan in a few days, hopefully then she will have a drainable abscess. Admission and Anticipated Discharge Date Admission Date: May 18, 2025 Subjective Patient does report that the pain she has feels more internal and does not feel as sensitive on the outside. She does report passing a large amount of gas and bowel movements. She has not gotten out of bed much. She does feel hungry. Physical Exam Constitutional: WD/WN, vitals as above Eyes: PERRL, conjunctivae normal, anicteric sclerae ENMT: external ear and nose normal, oropharynx normal Cardiovascular: Rate/Rhythm: regular rate Gastrointestinal (Abdomen): Soft, less distended and less tender on palpation diffusely Results & Data Vital Signs (Past 12 Hours) Vital Signs Temp Pulse Pulse Pulse Resp BP Pulse Ox 05/22/25 07:09 36.4 C L 74 121/73 98 05/22/25 03:38 36.8 C 79 18 145/84 H 98 05/22/25 00:00 36.6 C 74 19 134/77 97 05/21/25 23:00 05/21/25 21:54 78 05/21/25 20:02 O2 Del Method O2 Del Method O2 Flow Rate O2 Flow Rate 05/22/25 07:09 Nasal Cannula 1.5 05/22/25 03:38 Nasal Cannula 1.5 05/22/25 00:00 Nasal Cannula 1.5 05/21/25 23:00 Nasal Cannula 2 05/21/25 21:54 05/21/25 20:02 Nasal Cannula 2 Laboratory Results Labs reviewed, notable for decreasing white blood cell count PG Care Time/CCT Total # of Minutes Spent Total Time Spent with Patient: Total time spent is greater than 50% in coordination of care (as documented) at patient's floor/unit and/or counseling patient: Coding Level of Care Code 46343 SUB INP/OBS CARE 2/35MIN Diagnoses Diverticulitis of colon with perforation K57.20
--- NOTE | 2025-05-22 11:05 | Hospitalist Progress Note ---
Date of Service May 22, 2025 Assessment & Plan (1) Diverticulitis of colon with perforation: Plan Patient is a 69y/o F with PMHx significant for DMII, hyperlipidemia, asthmaCOPD overlap, ILD, PARRIS, hypertension, GERD and pulmonary hypertension who presented to the ED on 05/18/25 with c/o severe left-sided abdominal pain and was found to have perforated sigmoid diverticulitis on admitting CTAP. Sepsis 2/2 below >> Sepsis now resolved. Likely from gut translocation. Normal lactate, tachycardia improved. Acute peritonitis 2/2 perforated sigmoid diverticulitis Pt transferred to ICU on 05/19 2/2 hypotension, low MAP BP has been fluid responsive, MAP improved and maintained with IVF Did not require vasopressor support, transitioned back to PCU on 05/21 General surgery following closely Initially was planning on surgical intervention today 2/2 worsening leukocytosis yesterday Repeat CTAP yesterday appeared grossly unchanged compared to prior one completed on 05/19 Leukocytosis improved this AM and pt remains hemodynamically stable, afebrile Also less tender to palpation on abd exam, less distended as well Abd pain persists however it has improved somewhat compared to days prior Continue IV Zosyn, close monitoring for potential worsening Can have sips/chips IV heparin resumed given no plan on surgical intervention today Consider repeat CTAP in a few days per gen surg, hopefully then will have drainable abscess There was a peridiverticular air-fluid collection seen on CTAP on 05/19 measuring 8 x 3 x 6 cm but IR drainage could not be completed 2/2 too small of window Will ultimately need ID eval for guidance with ABX therapy, will hold off on this for today pending clinical course over next few days 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 Eliquis remains on hold IV heparin resumed as per above Pulmonary fibrosis and emphysema/ILD/asthma Pt with dry nonproductive cough, no wheezing on exam On baseline 2-3L NC PRN Delsym for cough added on; cough notably exacerbates her abd pain PARRIS Nonadherent to CPAP at home Type II DM Holding home oral medications; suboptimal control as of recent Hgb A1c 8.2% in March 2025 Basal/bolus insulin regimen adjusted for NPO status, BSG goal 110-140 Hypocalcemia 2/2 vit D deficiency Start vit D supplementation when able HTN Off antiHTNs for the time being Other chronic medical conditions: Will gradually resume home meds as able/tolerated DVT Prophylaxis: IV heparin, Eliquis on hold as per above Code Status: FULL CODE PCP: Leighton Pinto DO Disposition: DC plans uncertain at this time, appreciate PT/OT once clinical status improves Patient with significant physical deconditioning in setting of above, highly suspect rehab will be warranted upon DC Patient seen in collaboration with Dr. Crawley. Please see addendum. I spent a total of 58 minutes coordinating, documenting, and providing care for this patient excluding time spent in the performance of separately billed services or time spent by another provider/QHP. This included personally reviewing all current laboratories and imaging studies, medical reconciliation, outpatient chart review and discussion with specialists. Admission and Anticipated Discharge Date Admission Date: May 18, 2025 Supervising Physician Co-Signing Physician Notes Patient seen and examined independently. Discussed with above provider. Patient reports her abdominal pain has slightly improved. Her WBC count has also downtrended. General surgery discussed with the patient; plan to hold off surgery at this time. Plan to consider repeat CT abdomen in next few days. Will get infectious disease on board if no plan for surgery to determine duration/choice of antibiotics. I have reviewed the advanced practitioner's documentation, and I agree with, and take responsibility for the plan of care I spent a total of 30 minutes coordinating, documenting, and providing care for this patient excluding time spent in the performance of separately billed services. All of the aforementioned completed while collaborating with the assigned advanced practitioner for a full treatment plan Subjective Patient seen and examined in room W452-1. Continues to pass a large amount of flatus, some bowel movements. Abdominal pain similar to yesterday, overall improved however still present. Primarily in the LLQ, 12/27. LLQ not nearly as tender to palpation as it was before. Had a couple bouts of vomiting last evening but this has resolved. Denies any nausea this morning. Review of Systems Review of Systems: At least ten systems reviewed and negative, except as noted in the subjective section. Physical Exam Physical Exam: General: Obese F, NAD. Laying down in bed. A&Ox3. Ill-appearing. at bedside. HEENT: Normocephalic, atraumatic. External ear and nose normal, oropharynx appears dry. Respiratory: Normal respiratory effort, diminished bilaterally, coarse. On 2L NC. No accessory muscle use. Cardiovascular: RRR, no BLE pitting edema. Abdomen/GI: Hypoactive bowel sounds, soft. TTP throughout however most prominent in the LLQ, less compared to prior. No guarding. Less distended. Extremities/Musculoskeletal: No cyanosis or clubbing, actively moves all extremities. Neurologic: No overt focal deficits, CN's II-XI not formally tested but appear grossly intact bilaterally. Results & Data Results & Data Vital Signs (Past 12 Hours) Vital Signs Temp Pulse Pulse Resp BP Pulse Ox O2 Del Method 05/22/25 08:00 Nasal Cannula 05/22/25 07:09 36.4 C L 74 121/73 98 Nasal Cannula 05/22/25 03:38 36.8 C 79 18 145/84 H 98 Nasal Cannula 05/22/25 00:00 36.6 C 74 19 134/77 97 Nasal Cannula O2 Flow Rate 05/22/25 08:00 2 05/22/25 07:09 1.5 05/22/25 03:38 1.5 05/22/25 00:00 1.5 Laboratory Results Short CBC 05/22/25 Range/Units 05:41 WBC 13.15 H (4.8-10.8) K/ul Hgb 10.7 L (12.0-16.0) g/dL Hct 32.0 L (37.0-47.0) % Plt Count 283 (130-400) K/uL BMP 05/22/25 05:41 Sodium 138 Potassium 3.3 L Chloride 104 Carbon Dioxide 28 BUN 10 Creatinine 0.55 L Glucose 166 H Calcium 7.3 L Diagnostic Findings Abdomen/Pelvis CT 05/18/25 17:30 CR Exam(s): CT ABDOMEN + PELVIS With Contrast IV Amt: 90 ml optiray 320 EXAM: CT Abdomen and Pelvis With Intravenous Contrast CLINICAL HISTORY: left sided abd pain. TECHNIQUE: Axial computed tomography images of the abdomen and pelvis with intravenous contrast. CTDI is 27 mGy and DLP is 1408 mGy-cm. Automated exposure control was utilized for the study. A dose lowering technique was utilized adhering to the principles of ALARA. CONTRAST: Patient received 90 ml optiray 320 of IV contrast COMPARISON: Ultrasound gallbladder 10/06/2010 FINDINGS: Limitations: There is respiratory artifact, which degrades image quality on multiple image slices. Lung bases: No significant abnormality. No mass. No consolidation. ABDOMEN: Liver: No significant abnormality. No mass. Gallbladder and bile ducts: No significant abnormality. No calcified stones. No ductal dilation. Pancreas: No significant abnormality. No mass. No ductal dilation. Spleen: No significant abnormality. No splenomegaly. Adrenals: No significant abnormality. No mass. Kidneys and ureters: No significant abnormality. No solid mass. No hydronephrosis. Stomach and bowel: No evidence for focal high-grade bowel obstruction. There is extensive diverticulosis throughout the proximal sigmoid colon. There is mucosal thickening with pericolonic fat stranding and regional pneumoperitoneum which appears to extend from the bowel lumen laterally (series 300; images 39-40). There is a localized fluid and gas collection posterolateral to the sigmoid colon, measuring 1.6 x 7.3 x 7.3 cm. PELVIS: Appendix: The appendix is not clearly delineated and may be surgically absent. Bladder: No significant abnormality. No mass. Reproductive: Status post hysterectomy. ABDOMEN and PELVIS: Intraperitoneal space: There is also pneumoperitoneum surrounding the sigmoid colon and along the anterior aspect of the abdomen. Bones/joints: No acute fracture. No dislocation. Soft tissues: No significant abnormality. Vasculature: No significant abnormality. No abdominal aortic aneurysm. Lymph nodes: No significant abnormality. No enlarged lymph nodes. IMPRESSION: No evidence for focal high-grade bowel obstruction. There is extensive diverticulosis throughout the proximal sigmoid colon. There is mucosal thickening with pericolonic fat stranding and regional pneumoperitoneum which appears to extend from the bowel lumen laterally (series 300; images 39-40). There is a localized fluid and gas collection posterolateral to the sigmoid colon, measuring 1.6 x 7.3 x 7.3 cm. There is also pneumoperitoneum surrounding the sigmoid colon and along the anterior aspect of the abdomen. Findings are consistent with perforated sigmoid diverticulitis. Communications: Call Doctor Pneumoperitoneum, new or unexpected Electronically signed by: Keith Segura MD 05/18/25 21:51 PM Chest X-Ray 05/18/25 18:36 COMPARISON: 11/10/2024 FINDINGS: HEART: Normal in size. LUNGS: Chronic increased interstitial lung markings. Pulmonary scarring. Superimposed left basilar infiltrate cannot be excluded. No pneumothorax. MEEDIASTINUM: Mild mediastinal prominence. BONES: Intact. OTHER: Mediport catheter remains in place. Elevated right hemidiaphragm IMPRESSION: Chronic pulmonary scarring. Superimposed left basilar infiltrate cannot be excluded. Electronically signed by Yamil Cox 05-18-2025 7:[address] 05/18/25 23:34 EXAM: CT head/brain wo con CLINICAL HISTORY: Headache TECHNIQUE: Axial non-contrast CT scan of the brain was performed from the skull base to the high parietal region in axial, sagittal and coronal reconstructions. One of the following dose reduction techniques were utilized for this exam: Automated exposure control, adjustment of the mA and/or kV according to patient size, use of iterative reconstruction. COMPARISON: 10/18/2024, CT Head FINDINGS: Brain Parenchyma: Mild diffuse low-attenuation is identified in bilateral periventricular deep white matter, and few low-attenuation areas are identified in bilateral basal ganglia likely due to chronic microvascular ischemic changes Normal attenuation of the cerebellum, and brainstem. No evidence of acute infarct, hemorrhage, or mass effect. No abnormal areas of hyperattenuation. Ventricular System: Mildly prominent ventricular system seen, related to age No evidence of hydrocephalus. Subarachnoid Spaces: Mild to moderate widening of sulci are identified No evidence of subarachnoid hemorrhage or extra-axial fluid collections. Cerebellum and Brainstem: No masses, lesions, or areas of abnormal density. Orbits: Normal appearance of the globes, optic nerves, and extraocular muscles. No evidence of orbital masses or abnormal density. Sinuses: Possibility of minimal mucosal thickening in both ethmoid sinuses, image: 27/128 Rest of the paranasal sinuses appear unremarkable Mastoid Air Cells: Clear mastoid air cells. No evidence of mastoiditis. Skull: Normal skull morphology. IMPRESSION: 1. No evidence of intracranial hemorrhage, gross territorial infarction or mass-effect 2. Redemonstration of age appropriate volume loss in brain parenchyma and chronic microvascular ischemic changes with no gross interval change 3. No evidence of hydrocephalus 4. No tonsillar herniation seen. 5. Possibility of minimal mucosal thickening in both ethmoid sinuses, in current examination Electronically signed by Edgar Kilgore 05-19-2025 01:18 AM Abdomen/Pelvis CT 05/19/25 17:15 EXAMINATION: CT of the abdomen and pelvis performed without contrast TECHNIQUE: Helical CT images from the lung bases through the symphysis pubis were obtained without contrast. Coronal and sagittal reformatted images were generated at a workstation for further assessment. Dose reduction techniques were achieved by using automatic exposure control and/or adjustment of mA and/or kV according to patient size and/or use of iterative reconstruction technique. COMPARISON: None HISTORY: Abdominal pain FINDINGS: Lower chest: No consolidation. No pleural effusion or pneumothorax. Liver: No suspicious liver lesions. Gallbladder: No gallstones. No evidence of acute cholecystitis. Spleen: Normal size. Pancreas: No suspicious pancreatic lesions. The pancreatic duct is not dilated. Adrenal glands: No adrenal nodules. Kidneys: No hydronephrosis or obstructing renal stones. Bladder / Pelvic organs: Coronel catheter in place.. Bowel: No bowel obstruction. Perforated sigmoid diverticulitis, with an air/fluid collection arising from a diverticulum in the left lower quadrant. The collection measures approximately 8.3 x 3.2 cm. Mild scattered free air is seen throughout the peritoneum. Lymph nodes: No retroperitoneal, mesenteric, or pelvic lymphadenopathy. Peritoneum / Retroperitoneum: No free fluid or air within the abdomen. Vessels: No infrarenal aortic aneurysm. Bones and soft tissues: No suspicious lesion in the bones. IMPRESSION: Findings of perforated sigmoid diverticulitis. A left lower quadrant air/fluid collection is seen, and there is mild free air throughout the peritoneum. Electronically signed by Constantin Mccabe 05-19-2025 6:36 PM Abdomen/Pelvis CT 05/21/25 10:03 CT OF THE ABDOMEN AND PELVIS WITHOUT CONTRAST CLINICAL HISTORY: Worsening leukocytosis, perforated colon COMPARISON STUDY: 05/19/2025 TECHNIQUE: Axial images of the abdomen and pelvis were obtained without IV contrast. Images were reviewed in the axial, sagittal, and coronal planes. Automated exposure control was utilized for the study. A dose lowering technique was utilized adhering to the principles of ALARA. FINDINGS: Lung bases: The heart is enlarged. There is minimal pericardial thickening. There are trace pleural effusions. There is lower lobe pulmonary articulation possibly secondary to underlying interstitial lung disease. Liver: No focal hepatic masses are visualized in this noncontrast study. Gallbladder: No abnormalities identified. Spleen: No splenic masses identified. Pancreas: No ductal dilatation. No pancreatic masses identified in this noncontrast study. Adrenal glands: No adrenal masses are visualized. Kidneys: There is no hydronephrosis. There is a 2 mm nonobstructing mid pole left renal calculus. There is bilateral perinephric stranding. Abdominal vasculature: There is no evidence of abdominal aortic aneurysm. Bowel: There are no transition zones indicate bowel obstruction. There is pandi verticulosis. There is bowel wall thickening involving the proximal sigmoid colon with an adjacent extraluminal air-fluid level. The collection measures 8 x 3 x 6 cm. The findings are consistent with perforated diverticulitis. There is associated free intraperitoneal air relatively similar in volume to the prior study. The appendix is nonvisualized with certainty. Peritoneum: There is free peritoneal air relatively similar to the preceding study. Lymphadenopathy: There are no pathologically enlarged abdominal or pelvic lymph nodes. Pelvic viscera: The patient is status post a prior hysterectomy. A small fluid collection within the right adnexa, likely representing focal free fluid although an ovarian cyst could appear similar. There is an indwelling Coronel catheter. Skeletal structures: There is an old superior endplate L2 compression deformity. There is spinal stimulator present. No suspicious lytic or blastic skeletal lesions are visualized. IMPRESSION: 1. Perforated sigmoid diverticulitis with mild inferior intraperitoneal air relatively similar to the prior study 2. Peridiverticular air-fluid collection, similar in size to the prior study measuring 8 x 6 x 3 cm. ACT 112: Negative or not required by law. Electronically signed by: Dashawn Velasquez M.D. 05/21/2025 10:59 AM
--- NOTE | 2025-05-22 18:47 | Communication Note ---
Messaged by RN and primary team in regards to restarting heparin drip. Heparin drip low dose appropriate given hx of PE/DVT per chart review. Restarted low dose heparin in setting of no current need for emergent surgical intervention for diverticular perforation, per surgery note. Date of Service: May 22, 2025
[2025-05-22] MEDS ORDERED: HEPARIN 25000 UNIT/500 ML D5W 25,000 UNITS/500 ML BAG IV SCH (19:00)
[2025-05-22] MEDS: HEPARIN 25000 UNIT/500 ML D5W 25,000 UNITS/500 ML BAG IV SCH (19:34)
[2025-05-22] MEDS: Heparin IV Adult Wt-Based Low-Dose *NO* INITIAL Bolus Protocol IV STA (19:42)
[2025-05-23 02:54] LABS: ANTI-Xa, UFH(UnfractionatedHep 0.95 IU/ml (0.3-0.7)
[2025-05-23 06:01] LABS: Hematocrit (blood only) 32.9 % (37.0-47.0); Hemoglobin 11.1 g/dL (12.0-16.0); Immature Granulocytes # (auto) 0.39 K/uL (0.01-0.20); Immature Granulocytes % (auto) 3.0 %; Mean Corpuscular Hemoglobin 30.0 pg (25.0-34.0); Mean Corpuscular Volume 88.9 fL (80.0-100.0); Platelet Count 363 K/uL (130-400); RDW Standard Deviation 49.5 fL (36.4-46.3); Red Blood Count 3.70 M/uL (4.20-5.40); White Blood Count 13.20 K/ul (4.8-10.8)
[2025-05-23 06:17] LABS: Anion Gap 6.0 (3-11); Blood Urea Nitrogen 5.0 mg/dl (6-23); Calcium 7.4 mg/dl (8.6-10.3); Carbon Dioxide 29.0 mmol/L (21-32); Chloride 100.0 mmol/L (98-107); Creatinine Clr Calc Pharmacy 108.9 ml/min; Glucose 181.0 mg/dl (70-99(Fasting)); Magnesium 1.8 mg/dl (1.7-2.4); Potassium 3.3 mmol/L (3.5-5.1); Sodium 135.0 mmol/L (136-145)
[2025-05-23] MEDS: MoRPHine SULFATE 4 MG/ML 1 ML CARP\\VIAL IV PRN (08:06)
[2025-05-23] MEDS ORDERED: CHOLECALCIFEROL 125 MCG (5,000 UNITS) TAB PO SCH (09:00)
--- NOTE | 2025-05-23 09:36 | Surgery Progress Note ---
<Statement entered by Chris Diaz MD - 05/23/25 12:57> I independently saw and examined the patient, and I agree with the assessment and plan of care. Date of Service May 23, 2025 Assessment & Plan (1) Diverticulitis of colon with perforation: Plan: Patient seen evaluated this morning with attending surgeon, Dr. Diaz. - Patient requesting changes to her pain regimen if possible this morning. - Did have 2 episodes of emesis overnight, however nothing this morning. Is passing gas and still having episodes of diarrhea -Plan to treat conservatively for now, patient with no overt signs of peritonitis. Patient does seem less tender on exam than previously. Continue IV antibiotics and continue to trend WBC and temps. -Encourage ambulation and out of bed is much as possible -Last CT done on 05/21/2025, consider repeat CT possibly later today vs tomorrow to evaluate for any drainable abscesses Admission and Anticipated Discharge Date Admission Date: May 18, 2025 Subjective Patient seen and evaluated this morning, states that she is feeling about the same as she was yesterday. Nondistended on exam, however patient states that she is still having left lower quadrant abdominal pain States that she did have 2 episodes of emesis last evening, still having diarrhea Vital signs stable, afebrile, and continues on IV antibiotics Physical Exam Constitutional: WD/WN, vitals as above Respiratory: normal respiratory effort, lungs clear to auscultation Cardiovascular: Rate/Rhythm: regular rate Gastrointestinal (Abdomen): Abdomen soft, nondistended, still having TTP in the LLQ however seems improved from previous No overt signs of peritonitis Skin: no rashes, warm and dry Results & Data Vital Signs (Past 12 Hours) Vital Signs Temp Pulse Pulse Pulse Resp BP Pulse Ox 05/23/25 07:12 36.7 C 84 19 145/81 H 98 05/23/25 04:00 36.7 C 87 17 133/77 94 05/23/25 00:00 36.6 C 89 18 135/80 94 05/22/25 23:11 92 H 05/22/25 23:00 Pulse Ox O2 Del Method O2 Del Method O2 Flow Rate O2 Flow Rate 05/23/25 07:12 Nasal Cannula 1 05/23/25 04:00 Nasal Cannula 1.5 05/23/25 00:00 Nasal Cannula 1.5 05/22/25 23:11 05/22/25 23:00 97 Nasal Cannula 2 PG Care Time/CCT Total # of Minutes Spent Total Time Spent with Patient: Total time spent is greater than 50% in coordination of care (as documented) at patient's floor/unit and/or counseling patient: [place] [address] SUB INP/OBS CARE 07/14MIN Patient Type Established History Problem Focused Exam Problem Focused Medical Decision Making Straight Forward Diagnoses Diverticulitis of colon with perforation K57.20
--- NOTE | 2025-05-23 10:08 | Hospitalist Progress Note ---
Date of Service May 23, 2025 Assessment & Plan (1) Diverticulitis of colon with perforation: Plan Patient is a 69y/o F with PMHx significant for DMII, hyperlipidemia, asthmaCOPD overlap, ILD, PARRIS, hypertension, GERD and pulmonary hypertension who presented to the ED on 05/18/25 with c/o severe left-sided abdominal pain and was found to have perforated sigmoid diverticulitis on admitting CTAP. Sepsis -> Sepsis now resolved. Likely from gut translocation. Normal lactate, tachycardia improved Diverticulitis of colon with perforation Pt transferred to ICU on 05/19 2/2 hypotension, low MAP but improved and transitioned back to PCU 05/21 Repeat CTAP 05/22 appeared grossly unchanged compared to previous General surgery following closely -initially was planning on surgical intervention but improved with conservative mgmt, no overt signs of peritonitis. 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 Eliquis remains on hold in case need for OR Continue IV heparin for now Pulmonary fibrosis and emphysema/ILD/asthma Pt with dry nonproductive cough, no wheezing on exam On baseline 2-3L NC PRN Delsym for cough added on; cough notably exacerbates her abd pain PARRIS Nonadherent to CPAP at home Type II DM Holding home oral medications; suboptimal control as of recent Hgb A1c 8.2% in March 2025 Basal/bolus insulin regimen adjusted for NPO status, BSG goal 110-140 Hypocalcemia 2/2 vit D deficiency Start vit D supplementation when able HTN Anti-hypertensives have been held while NPO, will resume as appropriate DVT Prophylaxis: IV heparin, Eliquis on hold as per above Code Status: FULL CODE PCP: Leighton Pinto DO Disposition: DC plans uncertain at this time, appreciate PT/OT once clinical status improves Patient seen in collaboration with Dr. Crawley. Please see addendum. I spent a total of 45 minutes coordinating, documenting, and providing care for this patient excluding time spent in the performance of separately billed services or time spent by another provider/QHP. This included personally reviewing all current laboratories and imaging studies, medical reconciliation, outpatient chart review and discussion with specialists. Admission and Anticipated Discharge Date Admission Date: May 18, 2025 Supervising Physician Co-Signing Physician Notes Patient seen and examined independently. Discussed with above provider. Patient reports pain in left lower abdomen. Pain medication optimized. Surgery recommended advancing diet to clear liquid. Peripheral parenteral nutrition is started. Surgery considering repeat scan. Infectious disease consulted to determine choice/duration of antibiotics. I have reviewed the advanced practitioner's documentation, and I agree with, and take responsibility for the plan of care I spent a total of 30 minutes coordinating, documenting, and providing care for this patient excluding time spent in the performance of separately billed services. All of the aforementioned completed while collaborating with the assigned advanced practitioner for a full treatment plan Subjective Patient with pain overnight; improved slightly this AM following morphine. Emesis episodes last evening but has tolerated sips of emily andrew and is inquiring about more liquids. Diarrhea episodes overnight. No F/C, CP, SOB. Review of Systems Review of Systems: At least ten systems reviewed and negative except as noted in the HPI. Physical Exam Physical Exam: Gen: WD/WN, resting in bed, obese, A&Ox3 HEENT: Normocephalic, atraumatic Lung: Clear to Auscultation bilaterally Heart: Regular rate, regular rhythm Abdomen: Soft, TTP LLQ, no guarding Extremities: no edema Skin: Warm, no rash Results & Data Results & Data Vital Signs (Past 12 Hours) Vital Signs Temp Pulse Pulse Pulse Resp BP Pulse Ox 05/23/25 07:12 36.7 C 84 19 145/81 H 98 05/23/25 04:00 36.7 C 87 17 133/77 94 05/23/25 00:00 36.6 C 89 18 135/80 94 05/22/25 23:11 92 H 05/22/25 23:00 Pulse Ox O2 Del Method O2 Del Method O2 Flow Rate O2 Flow Rate 05/23/25 07:12 Nasal Cannula 1 05/23/25 04:00 Nasal Cannula 1.5 05/23/25 00:00 Nasal Cannula 1.5 05/22/25 23:11 05/22/25 23:00 97 Nasal Cannula 2 Laboratory Results Short CBC 05/23/25 Range/Units 05:25 WBC 13.20 H (4.8-10.8) K/ul Hgb 11.1 L (12.0-16.0) g/dL Hct 32.9 L (37.0-47.0) % Plt Count 363 (130-400) K/uL [facility] 05/23/25 05:25 Sodium 135 L Potassium 3.3 L Chloride 100 Carbon Dioxide 29 BUN 5 L Creatinine 0.53 L Glucose 181 H Calcium 7.4 L Diagnostic Findings Abdomen/Pelvis CT 05/18/25 17:30 CR Exam(s): CT ABDOMEN + PELVIS With Contrast IV Amt: 90 ml optiray 320 EXAM: CT Abdomen and Pelvis With Intravenous Contrast CLINICAL HISTORY: left sided abd pain. TECHNIQUE: Axial computed tomography images of the abdomen and pelvis with intravenous contrast. CTDI is 27 mGy and DLP is 1408 mGy-cm. Automated exposure control was utilized for the study. A dose lowering technique was utilized adhering to the principles of ALARA. CONTRAST: Patient received 90 ml optiray 320 of IV contrast COMPARISON: Ultrasound gallbladder 10/06/2010 FINDINGS: Limitations: There is respiratory artifact, which degrades image quality on multiple image slices. Lung bases: No significant abnormality. No mass. No consolidation. ABDOMEN: Liver: No significant abnormality. No mass. Gallbladder and bile ducts: No significant abnormality. No calcified stones. No ductal dilation. Pancreas: No significant abnormality. No mass. No ductal dilation. Spleen: No significant abnormality. No splenomegaly. Adrenals: No significant abnormality. No mass. Kidneys and ureters: No significant abnormality. No solid mass. No hydronephrosis. Stomach and bowel: No evidence for focal high-grade bowel obstruction. There is extensive diverticulosis throughout the proximal sigmoid colon. There is mucosal thickening with pericolonic fat stranding and regional pneumoperitoneum which appears to extend from the bowel lumen laterally (series 300; images 39-40). There is a localized fluid and gas collection posterolateral to the sigmoid colon, measuring 1.6 x 7.3 x 7.3 cm. PELVIS: Appendix: The appendix is not clearly delineated and may be surgically absent. Bladder: No significant abnormality. No mass. Reproductive: Status post hysterectomy. ABDOMEN and PELVIS: Intraperitoneal space: There is also pneumoperitoneum surrounding the sigmoid colon and along the anterior aspect of the abdomen. Bones/joints: No acute fracture. No dislocation. Soft tissues: No significant abnormality. Vasculature: No significant abnormality. No abdominal aortic aneurysm. Lymph nodes: No significant abnormality. No enlarged lymph nodes. IMPRESSION: No evidence for focal high-grade bowel obstruction. There is extensive diverticulosis throughout the proximal sigmoid colon. There is mucosal thickening with pericolonic fat stranding and regional pneumoperitoneum which appears to extend from the bowel lumen laterally (series 300; images 39-40). There is a localized fluid and gas collection posterolateral to the sigmoid colon, measuring 1.6 x 7.3 x 7.3 cm. There is also pneumoperitoneum surrounding the sigmoid colon and along the anterior aspect of the abdomen. Findings are consistent with perforated sigmoid diverticulitis. Communications: Call Doctor Pneumoperitoneum, new or unexpected Electronically signed by: Keith Segura MD 05/18/25 21:51 PM Chest X-Ray 05/18/25 18:36 COMPARISON: 11/10/2024 FINDINGS: HEART: Normal in size. LUNGS: Chronic increased interstitial lung markings. Pulmonary scarring. Superimposed left basilar infiltrate cannot be excluded. No pneumothorax. MEEDIASTINUM: Mild mediastinal prominence. BONES: Intact. OTHER: Mediport catheter remains in place. Elevated right hemidiaphragm IMPRESSION: Chronic pulmonary scarring. Superimposed left basilar infiltrate cannot be excluded. Electronically signed by Yamil Cox 05-18-2025 7:[address] 05/18/25 23:34 EXAM: CT head/brain wo con CLINICAL HISTORY: Headache TECHNIQUE: Axial non-contrast CT scan of the brain was performed from the skull base to the high parietal region in axial, sagittal and coronal reconstructions. One of the following dose reduction techniques were utilized for this exam: Automated exposure control, adjustment of the mA and/or kV according to patient size, use of iterative reconstruction. COMPARISON: 10/18/2024, CT Head FINDINGS: Brain Parenchyma: Mild diffuse low-attenuation is identified in bilateral periventricular deep white matter, and few low-attenuation areas are identified in bilateral basal ganglia likely due to chronic microvascular ischemic changes Normal attenuation of the cerebellum, and brainstem. No evidence of acute infarct, hemorrhage, or mass effect. No abnormal areas of hyperattenuation. Ventricular System: Mildly prominent ventricular system seen, related to age No evidence of hydrocephalus. Subarachnoid Spaces: Mild to moderate widening of sulci are identified No evidence of subarachnoid hemorrhage or extra-axial fluid collections. Cerebellum and Brainstem: No masses, lesions, or areas of abnormal density. Orbits: Normal appearance of the globes, optic nerves, and extraocular muscles. No evidence of orbital masses or abnormal density. Sinuses: Possibility of minimal mucosal thickening in both ethmoid sinuses, image: 27/128 Rest of the paranasal sinuses appear unremarkable Mastoid Air Cells: Clear mastoid air cells. No evidence of mastoiditis. Skull: Normal skull morphology. IMPRESSION: 1. No evidence of intracranial hemorrhage, gross territorial infarction or mass-effect 2. Redemonstration of age appropriate volume loss in brain parenchyma and chronic microvascular ischemic changes with no gross interval change 3. No evidence of hydrocephalus 4. No tonsillar herniation seen. 5. Possibility of minimal mucosal thickening in both ethmoid sinuses, in current examination Electronically signed by Edgar Kilgore 05-19-2025 01:18 AM Abdomen/Pelvis CT 05/19/25 17:15 EXAMINATION: CT of the abdomen and pelvis performed without contrast TECHNIQUE: Helical CT images from the lung bases through the symphysis pubis were obtained without contrast. Coronal and sagittal reformatted images were generated at a workstation for further assessment. Dose reduction techniques were achieved by using automatic exposure control and/or adjustment of mA and/or kV according to patient size and/or use of iterative reconstruction technique. COMPARISON: None HISTORY: Abdominal pain FINDINGS: Lower chest: No consolidation. No pleural effusion or pneumothorax. Liver: No suspicious liver lesions. Gallbladder: No gallstones. No evidence of acute cholecystitis. Spleen: Normal size. Pancreas: No suspicious pancreatic lesions. The pancreatic duct is not dilated. Adrenal glands: No adrenal nodules. Kidneys: No hydronephrosis or obstructing renal stones. Bladder / Pelvic organs: Coronel catheter in place.. Bowel: No bowel obstruction. Perforated sigmoid diverticulitis, with an air/fluid collection arising from a diverticulum in the left lower quadrant. The collection measures approximately 8.3 x 3.2 cm. Mild scattered free air is seen throughout the peritoneum. Lymph nodes: No retroperitoneal, mesenteric, or pelvic lymphadenopathy. Peritoneum / Retroperitoneum: No free fluid or air within the abdomen. Vessels: No infrarenal aortic aneurysm. Bones and soft tissues: No suspicious lesion in the bones. IMPRESSION: Findings of perforated sigmoid diverticulitis. A left lower quadrant air/fluid collection is seen, and there is mild free air throughout the peritoneum. Electronically signed by Constantin Mccabe 05-19-2025 6:36 PM Abdomen/Pelvis CT 05/21/25 10:03 CT OF THE ABDOMEN AND PELVIS WITHOUT CONTRAST CLINICAL HISTORY: Worsening leukocytosis, perforated colon COMPARISON STUDY: 05/19/2025 TECHNIQUE: Axial images of the abdomen and pelvis were obtained without IV contrast. Images were reviewed in the axial, sagittal, and coronal planes. Automated exposure control was utilized for the study. A dose lowering technique was utilized adhering to the principles of ALARA. FINDINGS: Lung bases: The heart is enlarged. There is minimal pericardial thickening. There are trace pleural effusions. There is lower lobe pulmonary articulation possibly secondary to underlying interstitial lung disease. Liver: No focal hepatic masses are visualized in this noncontrast study. Gallbladder: No abnormalities identified. Spleen: No splenic masses identified. Pancreas: No ductal dilatation. No pancreatic masses identified in this noncontrast study. Adrenal glands: No adrenal masses are visualized. Kidneys: There is no hydronephrosis. There is a 2 mm nonobstructing mid pole left renal calculus. There is bilateral perinephric stranding. Abdominal vasculature: There is no evidence of abdominal aortic aneurysm. Bowel: There are no transition zones indicate bowel obstruction. There is pandiverticulosis. There is bowel wall thickening involving the proximal sigmoid colon with an adjacent extraluminal air-fluid level. The collection measures 8 x 3 x 6 cm. The findings are consistent with perforated diverticulitis. There is associated free intraperitoneal air relatively similar in volume to the prior study. The appendix is nonvisualized with certainty. Peritoneum: There is free peritoneal air relatively similar to the preceding study. Lymphadenopathy: There are no pathologically enlarged abdominal or pelvic lymph nodes. Pelvic viscera: The patient is status post a prior hysterectomy. A small fluid collection within the right adnexa, likely representing focal free fluid although an ovarian cyst could appear similar. There is an indwelling Coronel catheter. Skeletal structures: There is an old superior endplate L2 compression deformity. There is spinal stimulator present. No suspicious lytic or blastic skeletal lesions are visualized. IMPRESSION: 1. Perforated sigmoid diverticulitis with mild inferior intraperitoneal air relatively similar to the prior study 2. Peridiverticular air-fluid collection, similar in size to the prior study measuring 8 x 6 x 3 cm. ACT 112: Negative or not required by law. Electronically signed by: Dashawn Velasquez M.D. 05/21/2025 10:59 AM
[2025-05-23 11:22] LABS: ANTI-Xa, UFH(UnfractionatedHep 0.20 IU/ml (0.3-0.7)
--- NOTE | 2025-05-23 11:32 | Infectious Disease Consult ---
Date of Service May 23, 2025 Telehealth Information I performed this visit using a real-time telehealth connection between my location and the patients location ([facility]). After connecting through interactive tele-video, patient was identified by name and date of and/or wristband check.Patient (or authorized healthcare promotions representative) was informed that this was a telemedicine visit and it was being conducted confidentially over secure lines. My office door was closed and no one else was present in the room with me.Patient (or authorized healthcare promotions representative) provided consent to proceed with the visit, expressed an understanding of privacy and security of the telemedicine visit, and gave permission to have a hospital promotions representative in the room in order to assist with the visit and to conduct portions of the visit, as needed. I informed the patient (or authorized healthcare promotions representative) that I reviewed their record and presented the opportunity for them to ask any questions regarding the visit today. The patient agreed to participate. perf sigmoid diverticulitis, abx rec Assessment & Plan (1) Diverticulitis of colon with perforation: Plan: Continue zosyn (2) Intra-abdominal abscess: Plan: recommend drainage Plan Recommend continuing zosyn and she will require drainage of her intra-abdominal fluid collection to achieve source control.Will follow up repeat CT scan and cultures from drainage .Thank you for allowing us to participate in the care of this patient ID will continue to follow . History of Present Illness History of Present Illness 69 y/o F PMHx hypertension, hyperlipidemia, PE on Eliquis, COPD/ILD/asthma, PARRIS on CPAP, DM2 on oral medications, diverticulosis, colonic polyps, mood disorder, recent cataract surgery (current postop steroid drop regimen), past tobacco abuse who presented with left sided abdominal pain .His imaging revealed perforated sigmoid diverticulitis and a peridiverticular fluid collection for which she was evaluated by General Surgery and started on zosyn with a plan to repeat CT scan in a few days Allergies Allergy/AdvReac Type Severity Reaction Status Date / Time No Known Allergies Allergy Unknown Verified 03/09/23 09:54 Home Medications Medication Instructions Recorded Confirmed Type nebulizer accessories #1 ea 01/21/22 11/05/22 Rx nebulizer and compressor #1 ea 01/21/22 11/05/22 Rx CPAP Machine #1 ea 05/18/22 08/04/22 Rx CPAP Supplies #1 ea 05/18/22 08/04/22 Rx levalbuterol HCl 1.25 mg/3 mL 1.25 mg NEB Q4H PRN asthma/copd 08/04/22 05/18/25 History solution for nebulization arformoterol 15 mcg/2 mL solution 2 ml inhalation UD PRN asthma/copd 11/05/22 05/18/25 History for nebulization (Brovana) fluticasone 250 mcg-salmeterol 50 1 inh inhalation UD asthma/copd 11/05/22 05/18/25 History mcg/dose blistr powdr for inhalation (Advair Diskus) furosemide 20 mg tablet (Lasix) 40 mg PO UD PRN Edema 11/05/22 05/18/25 History blood-glucose sensor (FreeStyle #2 ea 01/06/23 Rx Ling 3 Sensor device) sildenafil (pulm.hypertension) 20 10 mg PO TID 03/09/23 11/10/24 History mg tablet (Revatio) Tresiba FlexTouch U-100 100 20 unit (0.2 mL) subcut HS #30 mL 07/11/23 11/10/24 Rx unit/mL (3 mL) subcutaneous pen (insulin degludec) insulin aspart 10 unit subcut TIDM #30 mL 07/11/23 05/18/25 Rx (niacinamide)(U-100) 100 unit/mL(3 mL) subcutaneous pen (Fiasp FlexTouch U-100 Insulin) escitalopram oxalate 10 mg tablet 10 mg PO QAM #30 tabs 10/23/24 05/18/25 Rx metoprolol succinate 25 mg 25 mg PO BID #60 tabs 10/23/24 05/18/25 Rx tablet,extended release 24 hr montelukast 10 mg tablet 10 mg PO HS #30 tabs 10/23/24 11/10/24 Rx spironolactone 25 mg tablet 12.5 mg (1/2 x 25 mg) PO DAILY #15 10/23/24 05/18/25 Rx tabs umeclidinium 62.5 mcg/actuation 1 inh inhalation DAILY #30 ea 10/23/24 05/18/25 Rx blister powder for inhalation (Incruse Ellipta) apixaban 5 mg tablet (Eliquis) 5 mg PO BID #60 tabs 11/17/24 05/18/25 Rx alendronate 70 mg tablet 70 mg PO WK 05/18/25 05/18/25 History bupropion HCl 150 mg 24 hr tablet, 150 mg PO DAILY 05/18/25 05/18/25 History extended release prednisolone acetate 1 % eye 1 drp QID 05/18/25 05/18/25 History drops,suspension Patient History Medical History Sleep apnea inconsistent use/toleration issues. Nausea and vomiting after administration of anesthetic agent Neuropathy legs/stimular for right side/doesn't work battery is . Diabetic retinopathy injections for / most recent 3 wks ago/upcoming Mar 18 2023. Chronic cough no change in baseline. Oxygen deficiency o2 2-3L prn. Last need of oxygen September 2022. baseline oxygen sat 88 %, recently been in the 90's. COPD (chronic obstructive pulmonary disease) denies recent flares. Asthma last use rescue inhler 1 wk or so ago. Denies recent flares. HTN (hypertension) Type 2 diabetes mellitus History of fracture of leg Right femoral condyle fracture 2021/no sx intervention as of current/knee replacement was advised. B12 deficiency hx History of COVID-19 Pneumonia with ARDS in 2020, 3 months hospitalization, shorter hospi talization in 2022. Surgical History History of cataract surgery right and left. History of bilateral breast reduction surgery History of surgery stimulator placement. History of x2 History of back surgery History of hysterectomy History of colonoscopy Family History Father Stroke Heart disease Cancer skin Mother Breast cancer Grandmother (Paternal) Breast cancer Social History Smoking Status: Former smoker Tobacco Type: Cigarettes Second Hand Exposure: No; Do You Dip or Chew Tobacco: No; Tobacco Cessation Education Requested by Patient: No Hx Alcohol Use: No Hx Substance Use: No Preferred Language: Ivorian Communication Ability: Effective Leach Runner Required: No Beliefs That Will Affect Care: None Current Living Situation: Spouse Current Living Situation Comment: daughter (handicap) Other Information That Helps Us Care for You: No Feels Safe at Home: Yes Safety Concerns: Feels Safe At This Time Assistive Devices: Cane, Oxygen - Continuous and Walker Review of Systems abdominal pain Physical Exam awake alert oriented no respiratory distress Results & Data Vital Signs (Past 12 Hours) Vital Signs Temp Pulse Pulse Resp BP Pulse Ox O2 Del Method 05/23/25 11:10 36.8 C 83 19 162/77 H 93 Nasal Cannula 05/23/25 07:30 Nasal Cannula 05/23/25 07:12 36.7 C 84 19 145/81 H 98 Nasal Cannula 05/23/25 04:00 36.7 C 87 17 133/77 94 Nasal Cannula 05/23/25 00:00 36.6 C 89 18 135/80 94 Nasal Cannula O2 Flow Rate 05/23/25 11:10 1 05/23/25 07:30 2 05/23/25 07:12 1 05/23/25 04:00 1.5 05/23/25 00:00 1.5 Laboratory Results Blood cultures NGTD Diagnostic Findings IMPRESSION: 1. Perforated sigmoid diverticulitis with mild inferior intraperitoneal air relatively similar to the prior study 2. Peridiverticular air-fluid collection, similar in size to the prior study measuring 8 x 6 x 3 cm.
[2025-05-23] MEDS: POTASSIUM CHLORIDE / WTR 10 MEQ/100 ML PLCT IV SCH (12:06)
[2025-05-23] MEDS: HYDROmorphone INJ 0.5 MG/0.5 ML SYR IV PRN (12:14)
[2025-05-23] MEDS: LIDOCAINE 5% 1 PATCH TD STA (12:15)
[2025-05-23] MEDS: ACETAMINOPHEN 1,000 MG/100 ML VIAL IV SCH (12:18)
[2025-05-23] MEDS ORDERED: TPN/PPN CONSULT PHARMACY PRN (12:19)
[2025-05-23] MEDS ORDERED: DEXTROSE 10% 1,000 ML IV PRN (12:19)
[2025-05-23] MEDS ORDERED: LEVALBUTEROL 1.25 MG/3 ML NEB NEB PRN (13:46)
[2025-05-23] MEDS: STOP CLINOLIPID SCH (14:09)
[2025-05-23] MEDS ORDERED: FORMOTEROL 20 MCG/2 ML VIAL INH PRN (14:10)
--- NOTE | 2025-05-23 15:07 | Pharmacy Report ---
Pharmacy Initial PN Consult Nt - Date of Service May 23, 2025 - Scope Pharmacy has been consulted on this date to manage parenteral nutrition orders and order appropriate labs. As part of the Nutrition Support Team Guidelines, pharmacy will work in conjunction with dietary when determining the patients caloric needs. - Subjective * The patient is a 69 year old Female admitted on 05/18/25 for SEPSIS. * Patient is to receive parenteral nutrition for prolonged NPO due to di verticulitis with perforation. * Pertinent PMHx: diabetes, hypertension, diverticulosis, colonic polyps - Objective Vascular Access: * Patient currently has a peripheral line. * Peripheral line was confirmed by IV Team to be acceptable for PPN use on 05/23/25 Height & Weight (Last Documented) Height 5 ft Weight 103.9 kg Diet Order(s) 05/23/25 Lunch Diet Intake & Ouput (24hrs) 05/22/25 05/23/25 05/24/25 06:59 06:59 06:59 Intake Total 4619.582 / 4619.582 2987.267 / 2987.267 1561.25 / 1561.25 Output Total 2216 / 2216 2792 / 2792 1000 / 1000 Balance 2403.582 / 2403.582 195.267 / 195.267 561.25 / 561.25 Selected Laboratory Results 05/23/25 05:25 Sodium 135 L Potassium 3.3 L Chloride 100 Carbon Dioxide 29 Anion Gap 6 BUN 5 L Creatinine 0.53 L BUN/Creatinine Ratio 9.4 L Glucose 181 H Calcium 7.4 L Phosphorus 2.[address] - Follow Up Nutrition Assessment Start: 05/23/25 11:57 Freq: Status: Active Protocol: Document 05/23/25 11:57 WN (Rec: 05/23/25 12:12 WN [id number]) RD - Initial Nutrition Assessment Start: 05/21/25 10:43 Freq: Status: Active Protocol: Document 05/21/25 10:43 WN (Rec: 05/21/25 10:50 WN [id number]) - Assessment & Plan Assessment: * Patient NPO for 5-6 days. Being treated conservatively with IV antibiotics. Plan to repeat CT today or tomorrow to evaluate for drainable abscesses. * Hypokalemia, K = 3.3. Potassium IV replacement ordered prior to starting PN. Of note, patient also with hypophosphatemia with Kphos replacement on 05/21 and 05/22. Will maximize potassium and phosphate added to PN. Add thiamine. * Appreciate dietitians recommendations for macronutrients. Plan: * For Day #1 of PPN administration, the following will be ordered: * Macronutrients: * Amino Acids: 85 grams/day * Dextrose: 100 grams/day * Lipids: 50 grams/day * Micronutrients: * Sodium chloride: 80 mEq/day * Sodium acetate: 20 mEq/day * Potassium phosphate: 27 mMol/day * Potassium acetate: 40 mEq/day * Magnesium sulfate: 8.12 mEq/day * Calcium gluconate: 4.65 mEq/day * Multivitamins: 10 mL/day * Trace elements: 1 mL/day * Thiamine: 100 mg/day * Total volume of 2095 mL will be infused over 24 hours and will provide 1180 kcal/day * Patient is on PPN which has a maximum mOsm/L of 900. Final osmolarity of current solution is 816.9 mOsm/L. * Labs will be ordered per PN protocol. * Pharmacy will follow and adjust PN orders on a daily basis. Thank you!
[2025-05-23] MEDS: [UNRECOGNIZED DRUG - OTHER] IV SCH (17:25)
[2025-05-23] MEDS: PERIPHERAL TPN IV SCH (17:25)
[2025-05-23] MEDS: CLINOLIPID 20% IV FAT EMULSION 250 ML IV SCH (17:26)
[2025-05-23 20:10] LABS: ANTI-Xa, UFH(UnfractionatedHep 0.22 IU/ml (0.3-0.7)
[2025-05-23] MEDS: INSULIN ASPART PER UNIT CHARGE SC SCH (20:22)
[2025-05-23] MEDS: METOPROLOL SUCC 25MG EXT REL TAB PO SCH (20:25)
[2025-05-23] MEDS: REMOVE LIDODERM PATCH SCH (20:43)
[2025-05-24 03:25] LABS: Anion Gap 5.0 (3-11); Blood Urea Nitrogen 6.0 mg/dl (6-23); Calcium 7.5 mg/dl (8.6-10.3); Carbon Dioxide 31.0 mmol/L (21-32); Chloride 98.0 mmol/L (98-107); Creatinine Clr Calc Pharmacy 125.5 ml/min; Glucose 182.0 mg/dl (70-99(Fasting)); Magnesium 1.8 mg/dl (1.7-2.4); Potassium 3.8 mmol/L (3.5-5.1); Sodium 134.0 mmol/L (136-145); Triglycerides 198.0 mg/dl (0-150)
[2025-05-24 03:34] LABS: ANTI-Xa, UFH(UnfractionatedHep 0.22 IU/ml (0.3-0.7)
[2025-05-24 07:56] LABS: Hematocrit (blood only) 33.3 % (37.0-47.0); Hemoglobin 11.2 g/dL (12.0-16.0); Immature Granulocytes # (auto) 0.59 K/uL (0.01-0.20); Immature Granulocytes % (auto) 3.4 %; Mean Corpuscular Hemoglobin 30.6 pg (25.0-34.0); Mean Corpuscular Volume 91.0 fL (80.0-100.0); Platelet Count 406 K/uL (130-400); RDW Standard Deviation 52.9 fL (36.4-46.3); Red Blood Count 3.66 M/uL (4.20-5.40); White Blood Count 17.51 K/ul (4.8-10.8)
[2025-05-24] MEDS: OPTIRAY 320 100ml IV ONE (09:18)
--- NOTE | 2025-05-24 09:21 | Hospitalist Progress Note ---
Date of Service May 24, 2025 Assessment & Plan (1) Diverticulitis of colon with perforation: Plan Patient is a 69y/o F with PMHx significant for DMII, hyperlipidemia, asthmaCOPD overlap, ILD, PARRIS, hypertension, GERD and pulmonary hypertension who presented to the ED on 05/18/25 with c/o severe left-sided abdominal pain and was found to have perforated sigmoid diverticulitis on admitting CTAP. Sepsis -> Sepsis now resolved. Likely from gut translocation. Normal lactate, tachycardia improved Diverticulitis of sigmoid colon with perforation, now with multiple abscesses Pt transferred to ICU on 05/19 2/2 hypotension, low MAP but improved and transitioned back to PCU 05/21 Repeat CTAP 05/22 appeared grossly unchanged compared to previous General surgery following closely -initially was planning on surgical interventi on but improved with conservative mgmt, no overt signs of peritonitis. Continue IV abx and trend WBC and temps Due to increasing WBC count from 13 to 17k today as well as persistent localized LLQ pain, gen surg repeated CT abd/pelvis this AM, showin. Perforated sigmoid diverticulitis. 2. Multiple fluid collections within the pelvis, which demonstrate enhancing mesa and air-fluid levels. The findings are consistent with multiple abscesses. The largest measures 9 x 8 x 4 cm 3. Persistent free intraperitoneal air 4. 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 Eliquis remains on hold in case need for OR Continue IV heparin for now Pulmonary fibrosis and emphysema/ILD/asthma Pt with dry nonproductive cough, no wheezing on exam On baseline 2-3L NC PRN Delsym for cough added on; cough notably exacerbates her abd pain PARRIS Nonadherent to CPAP at home Type II DM Holding home oral medications; suboptimal control as of recent Hgb A1c 8.2% in March 2025 Basal/bolus insulin regimen adjusted for NPO status, BSG goal 110-140 Hypocalcemia 2/2 vit D deficiency Start vit D supplementation when able HTN Anti-hypertensives have been held while NPO, will resume as appropriate DVT Prophylaxis: IV heparin, Eliquis on hold as per above Code Status: FULL CODE PCP: Leighton Pinto, DO Disposition: DC plans uncertain at this time, appreciate PT/OT once clinical status improves Patient seen in collaboration with Dr. Crawley. Please see addendum. I spent a total of 50 minutes coordinating, documenting, and providing care for this patient excluding time spent in the performance of separately billed services or time spent by another provider/QHP. This included personally reviewing all current laboratories and imaging studies, medical reconciliation, outpatient chart review and discussion with specialists. Admission and Anticipated Discharge Date Admission Date: May 18, 2025 Supervising Physician Co-Signing Physician Notes Patient seen and examined independently. Discussed with above provider. Patient reported increase in abdominal pain today. She had increase in WBC today to 17K She underwent CT abdomen/pelvis; found to have multiple abscesses, perforated sigmoid diverticulitis, persistent free intraperitoneal air. Surgery recommends transfer to tertiary care center for possible IR drainage. Discussed with transfer center; awaiting callback I have reviewed the advanced practitioner's documentation, and I agree with, and take responsibility for the plan of care I spent a total of 30 minutes coordinating, documenting, and providing care for this patient excluding time spent in the performance of separately billed services. All of the aforementioned completed while collaborating with the assigned advanced practitioner for a full treatment plan Subjective Patient with pain overnight; felt better yesterday evening and tolerated some liquids and sat in bedside chair. However, pain persisted overnight and patient clinically worsened today. Single diarrhea episode since yesterday. No F/C, CP, SOB. Painful this AM, worse in LLQ. Made NPO with repeat CT ordered per surgery to better evaluate for drainable collection. Review of Systems Review of Systems: At least ten systems reviewed and negative except as noted in the HPI. Physical Exam Physical Exam: Gen: WD/WN, resting in bed, obese, A&Ox3 HEENT: Normocephalic, atraumatic Lung: Clear to Auscultation bilaterally Heart: Regular rate, regular rhythm Abdomen: Soft, TTP LLQ, no peritoneal signs Extremities: no edema Skin: Warm, no rash Results & Data Results & Data Vital Signs (Past 12 Hours) Vital Signs Temp Pulse Pulse Resp BP Pulse Ox O2 Del Method 05/24/25 07:34 36.4 C L 72 18 162/88 H 96 Nasal Cannula 05/24/25 03:36 36.7 C 81 19 171/89 H 94 Room Air 05/24/25 00:11 36.6 C 77 19 149/76 H 97 Nasal Cannula 05/23/25 21:56 Nasal Cannula 05/23/25 21:32 67 O2 Flow Rate 05/24/25 07:34 1 05/24/25 03:36 05/24/25 00:11 1 05/23/25 21:56 1 05/23/25 21:32 Laboratory Results Short CBC 05/24/25 Range/Units 02:54 WBC 17.51 H (4.8-10.8) K/ul Hgb 11.2 L (12.0-16.0) g/dL Hct 33.3 L (37.0-47.0) % Plt Count 406 H (130-400) K/uL BMP 05/24/25 02:54 Sodium 134 L Potassium 3.8 Chloride 98 Carbon Dioxide 31 BUN 6 Creatinine 0.46 L Glucose 182 H Calcium 7.5 L Diagnostic Findings Abdomen/Pelvis CT 05/18/25 17:30 CR Exam(s): CT ABDOMEN + PELVIS With Contrast IV Amt: 90 ml optiray 320 EXAM: CT Abdomen and Pelvis With Intravenous Contrast CLINICAL HISTORY: left sided abd pain. TECHNIQUE: Axial computed tomography images of the abdomen and pelvis with intravenous contrast. CTDI is 27 mGy and DLP is 1408 mGy-cm. Automated exposure control was utilized for the study. A dose lowering technique was utilized adhering to the principles of ALARA. CONTRAST: Patient received 90 ml optiray 320 of IV contrast COMPARISON: Ultrasound gallbladder 10/06/2010 FINDINGS: Limitations: There is respiratory artifact, which degrades image quality on multiple image slices. Lung bases: No significant abnormality. No mass. No consolidation. ABDOMEN: Liver: No significant abnormality. No mass. Gallbladder and bile ducts: No significant abnormality. No calcified stones. No ductal dilation. Pancreas: No significant abnormality. No mass. No ductal dilation. Spleen: No significant abnormality. No splenomegaly. Adrenals: No significant abnormality. No mass. Kidneys and ureters: No significant abnormality. No solid mass. No hydronephrosis. Stomach and bowel: No evidence for focal high-grade bowel obstruction. There is extensive diverticulosis throughout the proximal sigmoid colon. There is mucosal thickening with pericolonic fat stranding and regional pneumoperitoneum which appears to extend from the bowel lumen laterally (series 300; images 39-40). There is a localized fluid and gas collection posterolateral to the sigmoid colon, measuring 1.6 x 7.3 x 7.3 cm. PELVIS: Appendix: The appendix is not clearly delineated and may be surgically absent. Bladder: No significant abnormality. No mass. Reproductive: Status post hysterectomy. ABDOMEN and PELVIS: Intraperitoneal space: There is also pneumoperitoneum surrounding the sigmoid colon and along the anterior aspect of the abdomen. Bones/joints: No acute fracture. No dislocation. Soft tissues: No significant abnormality. Vasculature: No significant abnormality. No abdominal aortic aneurysm. Lymph nodes: No significant abnormality. No enlarged lymph nodes. IMPRESSION: No evidence for focal high-grade bowel obstruction. There is extensive diverticulosis throughout the proximal sigmoid colon. There is mucosal thickening with pericolonic fat stranding and regional pneumoperitoneum which appears to extend from the bowel lumen laterally (series 300; images 39-40). There is a localized fluid and gas collection posterolateral to the sigmoid colon, measuring 1.6 x 7.3 x 7.3 cm. There is also pneumoperitoneum surrounding the sigmoid colon and along the anterior aspect of the abdomen. Findings are consistent with perforated sigmoid diverticulitis. Communications: Call Doctor Pneumoperitoneum, new or unexpected Electronically signed by: Keith Segura MD 05/18/25 21:51 PM Chest X-Ray 05/18/25 18:36 COMPARISON: 11/10/2024 FINDINGS: HEART: Normal in size. LUNGS: Chronic increased interstitial lung markings. Pulmonary scarring. Superimposed left basilar infiltrate cannot be excluded. No pneumothorax. MEEDIASTINUM: Mild mediastinal prominence. BONES: Intact. OTHER: Mediport catheter remains in place. Elevated right hemidiaphragm IMPRESSION: Chronic pulmonary scarring. Superimposed left basilar infiltrate cannot be excluded. Electronically signed by Yamil Cox 05-18-2025 7:[address] 05/18/25 23:34 EXAM: CT head/brain wo con CLINICAL HISTORY: Headache TECHNIQUE: Axial non-contrast CT scan of the brain was performed from the skull base to the high parietal region in axial, sagittal and coronal reconstructions. One of the following dose reduction techniques were utilized for this exam: Automated exposure control, adjustment of the mA and/or kV according to patient size, use of iterative reconstruction. COMPARISON: 10/18/2024, CT Head FINDINGS: Brain Parenchyma: Mild diffuse low-attenuation is identified in bilateral periventricular deep white matter, and few low-attenuation areas are identified in bilateral basal ganglia likely due to chronic microvascular ischemic changes Normal attenuation of the cerebellum, and brainstem. No evidence of acute infarct, hemorrhage, or mass effect. No abnormal areas of hyperattenuation. Ventricular System: Mildly prominent ventricular system seen, related to age No evidence of hydrocephalus. Subarachnoid Spaces: Mild to moderate widening of sulci are identified No evidence of subarachnoid hemorrhage or extra-axial fluid collections. Cerebellum and Brainstem: No masses, lesions, or areas of abnormal density. Orbits: Normal appearance of the globes, optic nerves, and extraocular muscles. No evidence of orbital masses or abnormal density. Sinuses: Possibility of minimal mucosal thickening in both ethmoid sinuses, image: 27/128 Rest of the paranasal sinuses appear unremarkable Mastoid Air Cells: Clear mastoid air cells. No evidence of mastoiditis. Skull: Normal skull morphology. IMPRESSION: 1. No evidence of intracranial hemorrhage, gross territorial infarction or mass-effect 2. Redemonstration of age appropriate volume loss in brain parenchyma and chronic microvascular ischemic changes with no gross interval change 3. No evidence of hydrocephalus 4. No tonsillar herniation seen. 5. Possibility of minimal mucosal thickening in both ethmoid sinuses, in current examination Electronically signed by Edgar Kilgore 05-19-2025 01:18 AM Abdomen/Pelvis CT 05/19/25 17:15 EXAMINATION: CT of the abdomen and pelvis performed without contrast TECHNIQUE: Helical CT images from the lung bases through the symphysis pubis were obtained without contrast. Coronal and sagittal reformatted images were generated at a workstation for further assessment. Dose reduction techniques were achieved by using automatic exposure control and/or adjustment of mA and/or kV according to patient size and/or use of iterative reconstruction technique. COMPARISON: None HISTORY: Abdominal pain FINDINGS: Lower chest: No consolidation. No pleural effusion or pneumothorax. Liver: No suspicious liver lesions. Gallbladder: No gallstones. No evidence of acute cholecystitis. Spleen: Normal size. Pancreas: No suspicious pancreatic lesions. The pancreatic duct is not dilated. Adrenal glands: No adrenal nodules. Kidneys: No hydronephrosis or obstructing renal stones. Bladder / Pelvic organs: Coronel catheter in place.. Bowel: No bowel obstruction. Perforated sigmoid diverticulitis, with an air/fluid collection arising from a diverticulum in the left lower quadrant. The collection measures approximately 8.3 x 3.2 cm. Mild scattered free air is seen throughout the peritoneum. Lymph nodes: No retroperitoneal, mesenteric, or pelvic lymphadenopathy. Peritoneum / Retroperitoneum: No free fluid or air within the abdomen. Vessels: No infrarenal aortic aneurysm. Bones and soft tissues: No suspicious lesion in the bones. IMPRESSION: Findings of perforated sigmoid diverticulitis. A left lower quadrant air/fluid collection is seen, and there is mild free air throughout the peritoneum. Electronically signed by Constantin Mccabe 05-19-2025 6:36 PM Abdomen/Pelvis CT 05/21/25 10:03 CT OF THE ABDOMEN AND PELVIS WITHOUT CONTRAST CLINICAL HISTORY: Worsening leukocytosis, perforated colon COMPARISON STUDY: 05/19/2025 TECHNIQUE: Axial images of the abdomen and pelvis were obtained without IV contrast. Images were reviewed in the axial, sagittal, and coronal planes. Automated exposure control was utilized for the study. A dose lowering technique was utilized adhering to the principles of ALARA. FINDINGS: Lung bases: The heart is enlarged. There is minimal pericardial thickening. There are trace pleural effusions. There is lower lobe pulmonary articulation possibly secondary to underlying interstitial lung disease. Liver: No focal hepatic masses are visualized in this noncontrast study. Gallbladder: No abnormalities identified. Spleen: No splenic masses identified. Pancreas: No ductal dilatation. No pancreatic masses identified in this noncontrast study. Adrenal glands: No adrenal masses are visualized. Kidneys: There is no hydronephrosis. There is a 2 mm nonobstructing mid pole left renal calculus. There is bilateral perinephric stranding. Abdominal vasculature: There is no evidence of abdominal aortic aneurysm. Bowel: There are no transition zones indicate bowel obstruction. There is pandiverticulosis. There is bowel wall thickening involving the proximal sigmoid colon with an adjacent extraluminal air-fluid level. The collection measures 8 x 3 x 6 cm. The findings are consistent with perforated diverticulitis. There is associated free intraperitoneal air relatively similar in volume to the prior study. The appendix is nonvisualized with certainty. Peritoneum: There is free peritoneal air relatively similar to the preceding study. Lymphadenopathy: There are no pathologically enlarged abdominal or pelvic lymph nodes. Pelvic viscera: The patient is status post a prior hysterectomy. A small fluid collection within the right adnexa, likely representing focal free fluid although an ovarian cyst could appear similar. There is an indwelling Coronel catheter. Skeletal structures: There is an old superior endplate L2 compression deformity. There is spinal stimulator present. No suspicious lytic or blastic skeletal lesions are visualized. IMPRESSION: 1. Perforated sigmoid diverticulitis with mild inferior intraperitoneal air relatively similar to the prior study 2. Peridiverticular air-fluid collection, similar in size to the prior study measuring 8 x 6 x 3 cm. ACT 112: Negative or not required by law. Electronically signed by: Dashawn Velasquez M.D. 05/21/2025 10:59 AM Abdomen/Pelvis CT 05/24/25 08:00 CT SCAN OF THE ABDOMEN AND PELVIS WITH IV CONTRAST CLINICAL HISTORY: Diverticulitis. Elevated white count. Evaluate for abscess. COMPARISON STUDY: 05/19/2025 TECHNIQUE: Following the IV administration of 94 cc of Optiray 320, CT scan of the abdomen and pelvis is performed from the lung bases to the proximal femora. Images are reviewed in the axial, sagittal, and coronal planes. IV contrast was administered without complication. A dose lowering technique was utilized adhering to the principles of ALARA. CT DOSE: 1371.13 mGy.cm FINDINGS: Lung bases: The heart is mildly enlarged. There is slight increase in small bilateral pleural effusions. There is lower lobe pulmonary reticulation possibly secondary to underlying interstitial lung disease Liver: No focal hepatic masses are visualized. There is no ductal dilatation. The hepatic and portal veins appear patent. Gallbladder: Mildly distended. No calculi identified. Spleen: No splenic masses are visualized. Pancreas: No pancreatic masses identified. No ductal dilatation Adrenal glands: No adrenal masses are visualized. Kidneys: There are no solid renal masses. There is no evidence of hydronephrosis Abdominal vasculature: There is no evidence of abdominal aortic dilatation. Bowel: There are no transition zones indicate bowel obstruction. There is extensive left colonic diverticulosis. There is sigmoid wall thickening. There is a perisigmoid air-fluid collection which now demonstrates an enhancing wall. This measures 9 x 8 x 4 cm. There is a second rim-enhancing fluid collection located within the central pelvis just to the left of midline measuring 4 cm. This is consistent with a second abscess. Additional smaller fluid collections are visualized. The findings are consistent with multiple intraabdominal abscesses secondary to perforated diverticulitis. Appendix is nonvisualized with certainty. Peritoneum: Multiple peritoneal fluid collections are visualized as described above. There is persistent free peritoneal air, consistent with perforated diverticulitis. Lymphadenopathy: There are no pathologically enlarged abdominal or pelvic lymph nodes. Pelvic viscera: The patient is status post a prior hysterectomy. There is an indwelling Coronel catheter present. Skeletal structures: There are no suspicious lytic or blastic skeletal lesions. There is an old superior endplate L2 compression deformity. A spinal stimulator is present. IMPRESSION: 1. Perforated sigmoid diverticulitis. 2. Multiple fluid collections within the pelvis, which demonstrate enhancing mesa and air-fluid levels. The findings are consistent with multiple abscesses. The largest measures 9 x 8 x 4 cm 3. Persistent free intraperitoneal air 4. Increasing small bilateral pleural effusions ACT 112: Negative or not required by law. Electronically signed by: Dashawn Velasquez M.D. 05/24/2025 9:39 AM
[2025-05-24] MEDS: ESCITALOPRAM OXALATE 10 MG TAB PO SCH (09:33)
--- NOTE | 2025-05-24 09:41 | CT Scan Report ---
CT SCAN OF THE ABDOMEN AND PELVIS WITH IV CONTRAST CLINICAL HISTORY: Diverticulitis. Elevated white count. Evaluate for abscess. COMPARISON STUDY: 05/19/2025 TECHNIQUE: Following the IV administration of 94 cc of Optiray 320, CT scan of the abdomen and pelvi s is performed from the lung bases to the proximal femora. Images are reviewed in the axial, sagittal , and coronal planes. IV contrast was administered without complication. A dose lowering technique wa s utilized adhering to the principles of ALARA. CT DOSE: 1371.13 mGy.cm FINDINGS: Lung bases: The heart is mildly enlarged. There is slight increase in small bilateral pleural effusio ns. There is lower lobe pulmonary reticulation possibly secondary to underlying interstitial lung dis ease Liver: No focal hepatic masses are visualized. There is no ductal dilatation. The hepatic and portal veins appear patent. Gallbladder: Mildly distended. No calculi identified. Spleen: No splenic masses are visualized. Pancreas: No pancreatic masses identified. No ductal dilatation Adrenal glands: No adrenal masses are visualized. Kidneys: There are no solid renal masses. There is no evidence of hydronephrosis Abdominal vasculature: There is no evidence of abdominal aortic dilatation. Bowel: There are no transition zones indicate bowel obstruction. There is extensive left colonic dive rticulosis. There is sigmoid wall thickening. There is a perisigmoid air-fluid collection which now d emonstrates an enhancing wall. This measures 9 x 8 x 4 cm. There is a second rim-enhancing fluid nelly ection located within the central pelvis just to the left of midline measuring 4 cm. This is consiste nt with a second abscess. Additional smaller fluid collections are visualized. The findings are consi stent with multiple intraabdominal abscesses secondary to perforated diverticulitis. Appendix is non visualized with certainty. Peritoneum: Multiple peritoneal fluid collections are visualized as described above. There is persist ent free peritoneal air, consistent with perforated diverticulitis. Lymphadenopathy: There are no pathologically enlarged abdominal or pelvic lymph nodes. Pelvic viscera: The patient is status post a prior hysterectomy. There is an indwelling Coronel cathet er present. Skeletal structures: There are no suspicious lytic or blastic skeletal lesions. There is an old super ior endplate L2 compression deformity. A spinal stimulator is present. IMPRESSION: 1. Perforated sigmoid diverticulitis. 2. Multiple fluid collections within the pelvis, which demonstrate enhancing mesa and air-fluid leve ls. The findings are consistent with multiple abscesses. The largest measures 9 x 8 x 4 cm 3. Persistent free intraperitoneal air 4. Increasing small bilateral pleural effusions ACT 112: Negative or not required by law. Electronically signed by: Dashawn Velasquez M.D. 05/24/2025 9:39 AM
--- NOTE | 2025-05-24 10:27 | Surgery Progress Note ---
Date of Service May 24, 2025 Assessment & Plan (1) Diverticulitis of colon with perforation: Plan: This is a 69-year-old female with complicated diverticulitis with perforation, being treated with IV antibiotics, she was clinically improving but does appear worsened today with increased white blood cell count. She is hemodynamically stable without diffuse peritoneal signs. Repeat CT scan of abdomen and pelvis with IV contrast was obtained and it does show more localized abscess in the left lower abdomen and pelvis. Given that she is hemodynamically stable, with some risk factors in terms of surgical intervention in terms of her comorbid conditions, I recommend IR drainage of the abscesses and continue IV antibiotics. Will continue to follow. Admission and Anticipated Discharge Date Admission Date: May 18, 2025 Subjective Patient does report ongoing issues with abdominal pain, she did tolerate liquids however yesterday. The pain is localized mostly to the left lower abdomen. Has remained afebrile and nontachycardic with hypertension. Review of Systems Review of Systems: All systems reviewed & are unremarkable except as noted in HPI & below Physical Exam Constitutional: WD/WN, vitals as above Eyes: PERRL, conjunctivae normal, anicteric sclerae ENMT: external ear and nose normal, oropharynx normal Respiratory: Normal effort Gastrointestinal (Abdomen): Soft, tender to palpation in the left lower abdomen with localized guarding, obese, no diffuse peritoneal signs Musculoskeletal: No concerning findings Psychiatric: A+Ox3, euthymic affect Results & Data Vital Signs (Past 12 Hours) Vital Signs Temp Pulse Resp BP Pulse Ox O2 Del Method O2 Flow Rate 05/24/25 07:34 36.4 C L 72 18 162/88 H 96 Nasal Cannula 1 05/24/25 03:36 36.7 C 81 19 171/89 H 94 Room Air 05/24/25 00:11 36.6 C 77 19 149/76 H 97 Nasal Cannula 1 Laboratory Results Blood work notable for increased white blood cell count, from 13-17. PG Care Time/CCT Total # of Minutes Spent Total Time Spent with Patient: Total time spent is greater than 50% in coordination of care (as documented) at patient's floor/unit and/or counseling patient: Coding Level of Care Code 15242 SUB INP/OBS CARE 2/35MIN Diagnoses Diverticulitis of colon with perforation K57.20
[2025-05-24] MEDS: Heparin IV Adult Wt-Based Standard *NO* INITIAL Bolus Protocol IV STA (14:24)
--- NOTE | 2025-05-24 14:24 | Discharge Summary ---
Discharge Summary Date of Service May 24, 2025 Principal Dx & Hospital Course #1 = Principal Diagnosis (1) Diverticulitis of colon with perforation: Plan Patient is a 69y/o F with PMHx significant for DM II, hyperlipidemia, ast hmaCOPD overlap, ILD, PARRIS, hypertension, GERD and pulmonary hypertension who presented to the ED on 05/18/25 with c/o severe left-sided abdominal pain and was found to have perforated sigmoid diverticulitis on admitting CTAP. Sepsis -> Sepsis now resolved. Likely from gut translocation. Normal lactate, tachycardia improved Diverticulitis of sigmoid colon with perforation, now with multiple abscesses Pt transferred to ICU on 05/19 2/2 hypotension, low MAP but improved and transitioned back to PCU 05/21 Repeat CTAP 05/22 appeared grossly unchanged compared to previous General surgery following closely -initially was planning on surgical intervention but improved with conservative mgmt, no overt signs of peritonitis. Continue IV abx and trend WBC and temps 05/24: Due to increasing WBC count from 13 to 17k as well as persistent localized LLQ pain, gen surg repeated CT abd/pelvis this AM, showin. Perforated sigmoid diverticulitis. 2. Multiple fluid collections within the pelvis, which demonstrate enhancing mesa and air-fluid levels. The findings are consistent with multiple abscesses. The largest measures 9 x 8 x 4 cm 3. Persistent free intraperitoneal air 4. Increasing small bilateral pleural effusions Gen surg recommending transfer to tertiary care center with IR capabilities, transfer center involved -> accepted at 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 Eliquis remains on hold in case need for OR Continue IV heparin for now Pulmonary fibrosis and emphysema/ILD/asthma Pt with dry nonproductive cough, no wheezing on exam Continue home medications On baseline 2-3L NC PRN Delsym for cough added on; cough notably exacerbates her abd pain PARRIS Nonadherent to CPAP at home Type II DM Holding home oral medications; suboptimal control as of recent Hgb A1c 8.2% in March 2025 Basal/bolus insulin regimen adjusted for NPO status, BSG goal 110-140 Hypocalcemia 2/2 vit D deficiency Start vit D supplementation when able HTN Resumed metoprolol succinate, continue holding Aldactone and resume as appropriate Patient seen in collaboration with Dr. Crawley. Please see addendum. Notes For Next Care Provider Transfer to [facility] for IR drainage of abcesses in setting of perforated sigmoid diverticulitis Medication Changes From Visit Continue IV Zosyn, PPN, IV heparin Admission HPI Per Admitting Provider History obtained from patient and records. Medical history significant for hypertension, hyperlipidemia, PE on Eliquis, COPD/ILD/asthma, PARRIS on CPAP, DM2 on oral medications, diverticulosis, colonic polyps, mood disorder, recent cataract surgery (current postop steroid drop regimen), past tobacco abuse. Last confinement October 2024 for acute PE DVT following recent confinement for pneumonia. Patient was spent Thanksgiving at [place] 4 days ago. Dry cough symptoms without chest pain or SOB. No aspiration. Patient noted achy left-sided abdominal pain while driving back home to [place] yesterday. Achy headache symptoms. Abdominal pain worse with cough. Low-grade fever at home. Nausea and bilious emesis symptoms. IV Zosyn administered at the ER for bowel sepsis. Medical History as above 2006 colonoscopy showed diverticulosis and polyps Surgical History : cataract surgeries breast reduction, LUI Family History : Breast cancer, brain tumor, heart disease, stroke Personal/Social history : Past tobacco abuse, occasional EtOH intake Admission Exam Per Admitting Provider GENERAL: Morbidly obese, ill-appearing, no respiratory distress SKIN: Normal color, warm HEENT: Fronton palpebral conjunctivae, no ptosis, dry buccal mucosa, nasal cannula in place NECK : Supple, short neck, no tenderness CHEST : Decreased breath sounds, no tenderness HEART : RRR, no obvious murmurs ABDOMEN: Some distention, hypogastric tenderness EXTREMITIES : No LE swelling/tenderness, palpable pulses, no other conspicuous deformities noted NEUROLOGIC : Coherent, no facial asymmetry, no other gross focality Discharge Exam Gen: WD/WN, resting in bed, obese, A&Ox3 HEENT: Normocephalic, atraumatic Lung: Clear to Auscultation bilaterally Heart: Regular rate, regular rhythm Abdomen: Soft, TTP LLQ, no peritoneal signs Extremities: no edema Skin: Warm, no rash Updated Medication List Medication Instructions Recorded Confirmed Type levalbuterol HCl 1.25 mg/3 mL 1.25 mg NEB Q4H PRN asthma/copd 08/04/22 05/18/25 History solution for nebulization arformoterol 15 mcg/2 mL solution 2 ml inhalation UD PRN asthma/copd 11/05/22 05/18/25 History for nebulization (Brovana) fluticasone 250 mcg-salmeterol 50 1 inh inhalation UD asthma/copd 11/05/22 05/18/25 History mcg/dose blistr powdr for inhalation (Advair Diskus) furosemide 20 mg tablet (Lasix) 40 mg PO UD PRN Edema 11/05/22 05/18/25 History sildenafil (pulm.hypertension) 20 10 mg PO TID 03/09/23 11/10/24 History mg tablet (Revatio) Tresiba FlexTouch U-100 100 20 unit (0.2 mL) subcut HS #30 mL 07/11/23 11/10/24 Rx unit/mL (3 mL) subcutaneous pen (insulin degludec) insulin aspart 10 unit subcut TIDM #30 mL 07/11/23 05/18/25 Rx (niacinamide)(U-100) 100 unit/mL(3 mL) subcutaneous pen (Fiasp FlexTouch U-100 Insulin) escitalopram oxalate 10 mg tablet 10 mg PO QAM #30 tabs 10/23/24 05/18/25 Rx metoprolol succinate 25 mg 25 mg PO BID #60 tabs 10/23/24 05/18/25 Rx tablet,extended release 24 hr montelukast 10 mg tablet 10 mg PO HS #30 tabs 10/23/24 11/10/24 Rx spironolactone 25 mg tablet 12.5 mg (1/2 x 25 mg) PO DAILY #15 10/23/24 05/18/25 Rx tabs umeclidinium 62.5 mcg/actuation 1 inh inhalation DAILY #30 ea 10/23/24 05/18/25 Rx blister powder for inhalation (Incruse Ellipta) apixaban 5 mg tablet (Eliquis) 5 mg PO BID #60 tabs 11/17/24 05/18/25 Rx alendronate 70 mg tablet 70 mg PO WK 05/18/25 05/18/25 History bupropion HCl 150 mg 24 hr tablet, 150 mg PO DAILY 05/18/25 05/18/25 History extended release prednisolone acetate 1 % eye 1 drp QID 05/18/25 05/18/25 History drops,suspension Hospital Stay Data Consultations 05/19/25 14:14 Consult Repair Weaver Routine 05/23/25 08:00 Consult Infectious Diseases Routine 05/24/25 10:33 Burn CD for patient Stat Procedures Performed Operation Date: 05/22/25 07:00 <No data on this case meets the specified criteria> Diagnostic Imagining Performed 05/18/25 17:30 CT abd pelvis IV con only Stat 05/18/25 23:34 CT head/brain wo con Stat 05/19/25 17:15 CT Abd and Pelvis [CT abd pelvis wo con] Stat 05/21/25 10:03 CT Abd and Pelvis [CT abd pelvis wo con] Stat 05/24/25 08:00 CT abd pelvis IV con only Stat Pending Results Patient Have Any Pending Studies at Discharge: No Discharge Instructions Given to Patient (Per Discharging Provider) Patient was admitted with diverticulitis of colon with perforation on 05/18/25. General surgery managing with conservative measures with IV abx but due to increased WBC count, repeat CT abd/pelvis was obtained this morning (05/24), revealin. Perforated sigmoid diverticulitis. 2. Multiple fluid collections within the pelvis, which demonstrate enhancing mesa and air-fluid levels. The findings are consistent with multiple abscesses. The largest measures 9 x 8 x 4 cm 3. Persistent free intraperitoneal air 4. Increasing small bilateral pleural effusions Gen surg recommending transfer to tertiary care center with IR capabilities, transfer center involved and accepted at [facility] Plan: Continue IV Zosyn Continue nutrition with PPN Continue IV heparin due to perioperative state and h/o PE/DVT Total Time Total Time Spent Total Time Spent (In Minutes): 60 Supervising Physician Co-Signing Physician Notes Patient seen and examined independently. Discussed with above provider. Discussion was done with the transfer center at [facility], [facility]. [facility] was unable to take the patient due to high census. She was accepted at [facility] with possible intervention radiology availability on Tuesday. This was discussed with on-call surgeon who recommended that patient to be referred to [facility] given the imaging findings. Discussion was done with on-call surgeon at [facility] who accepted the patient for transfer. Heparin was restarted prior to discharge. Patient was agreeable with the plan. I have reviewed the advanced practitioner's documentation, and I agree with, and take responsibility for the plan of care I spent a total of 30 minutes coordinating, documenting, and providing care for this patient excluding time spent in the performance of separately billed services. All of the aforementioned completed while collaborating with the assigned advanced practitioner for a full treatment plan
[2025-05-24] MEDS: HEPARIN 25000 UNIT/500 ML D5W 25,000 UNITS/500 ML BAG IV SCH (14:25)
[2025-05-24 15:09] VITALS: BP 150/78; PULSE 65; RESP 18; TEMP 97.9; O2SAT 95
[2025-05-24] MEDS ORDERED: [UNRECOGNIZED DRUG - OTHER] IV SCH (16:00)
[2025-05-24] MEDS ORDERED: PERIPHERAL TPN IV SCH (16:00)
[2025-05-24] MEDS ORDERED: CLINOLIPID 20% IV FAT EMULSION 250 ML IV SCH (16:00)
== END 2025-05-24 17:16 | disposition short-term general hospital (02) | DRG 871 ==
LOC: ED 17:10 → SUATTDRO 22:28 → 4W 22:28 → 1E 05-19 14:53 → 4W 05-21 11:40